=== PATIENT | female | born 1960 | race Caucasian/White ===

== ENCOUNTER → 2017-04-29 08:51 | Outpatient (CLI) | payer MEDICARE, MEDICAID, SELFPAY ==
--- NOTE | 2017-04-29 15:16 | RAD_ITS ---
STUDY: X-RAY - ABDOMEN/PELVIS REASON FOR EXAM: Female, 56 years old. Several day history of constipation and mid abdominal pain. TECHNIQUE: AP supine and upright views of the abdomen and pelvis. COMPARISON: None. FINDINGS: Normal visualized lung bases. There is a moderate amount of colonic fecal material. There is no demonstrated free abdominal air. The visualized liver, spleen and kidneys are grossly normal in size and morphology. Normal soft tissue structures. There are diffuse degenerative changes of the visualized lumbar spine. Marked degree of osteoarthritis involving the right hip joint. RAD/Abd Inc Decub and/or Erect IMPRESSION: Moderate amount of fecal material is seen in the colon. Electronically Signed: Khurram Recio MD at 15:40 EDT Tel [phone], Service support ,
[2017-04-29 17:52] LABS: Absolute Lymphocyte Count 3.09 X10^3/ul (0.83-4.51); Absolute Neutrophil Count 4.9 X10^3/uL (2.0-7.7); Basophil# 0.02 X10^3/uL; Basophil% 0.2 % (0-1); Eosinophil# 0.17 X10^3/uL; Eosinophils% 1.9 % (0-5); Hematocrit 39.9 % (37-47); Hemoglobin 12.8 g/dl (12.0-15.0); Lymphocyte # 3.09 X10^3/ul (4.0); Lymphocyte % 34.7 % (19-41); Mean Corp Hgb Conc 32.1 g/gl (32-36); Mean Corpuscular Hgb 28.8 pg (27.0-32.0); Mean Corpuscular Volume 89.7 fL (81-99); Mean Platelet Vol. 9.1 fl (6.2-12.0); Monocyte# 0.72 X10^3/uL; Monocyte% 8.1 % (0-10); Neutrophil # 4.88 X10^3/uL (2.7-7.7); Neutrophil % 54.9 % (47-70); Platelet Count 282 K/mm3 (150-450); RBC Distribution Width CV 13.8 % (11.6-14.6); RBC Distribution Width SD 45.1 fl (35.1-43.9); Red Blood Count 4.45 M/mm3 (4.2-5.4); White Blood Count 8.9 K/mm3 (4.4-11.0)
[2017-04-29 17:56] LABS: POSITIVE COUNT NO; POSITIVE DIFFERENTIAL NO; POSITIVE MORPHOLOGY NO
[2017-04-29 18:15] LABS: Vitamin D,25 Hydroxy 13.3 ng/mL (29.95-100.01)
[2017-04-29 19:07] LABS: ALB/GLOB Ratio 1.1 RATIO (0.9-2.4); AST(SGOT) 18 U/L (15-37); Alanine Aminotransfer ALT/SGPT 36 U/L (13-56); Albumin, Serum 3.7 g/dL (3.2-5.0); Alkaline Phosphatase 112 U/L (45-117); Anion Gap 11 (5-15); BUN 20 mg/dL (7-18); Calcium,Total 8.6 mg/dL (8.5-10.1); Chloride 100 mmol/L (98-107); Creatinine, Serum 0.95 mg/dL (0.55-1.02); EST Glomerular Filtration Rate 64 mL/min (>60); Est Glom Filt Rate - Afr Amer 77 mL/min (>60); Globulin 3.5 g/dL (2.2-4.2); Glucose 228 mg/dL (74-106); Protein, Total 7.2 g/dL (6.4-8.2); Sodium Level 138 mmol/L (136-145)
== END ==
PROVIDERS: Family Provider Family Medicine Geriatric Medicine; PCP Family Medicine Geriatric Medicine; Visit Provider Family Medicine Geriatric Medicine
DX: E55.9 Vitamin D deficiency, unspecified (principal); I10 Essential (primary) hypertension; K59.00 Constipation, unspecified
CPT/HCPCS: 36415; 74019; 80053; 82306; 84443; 85025

== ENCOUNTER 2017-07-22 11:30 | Inpatient (IN) | payer MEDICARE, MEDICAID, SELFPAY ==
--- NOTE | 2017-07-22 11:46 | EKG12_ITS ---
Test Reason : SOB Blood Pressure : / mmHG Vent. Rate : 077 BPM Atrial Rate : 077 BPM P-R Int : 088 ms QRS Dur : 140 ms QT Int : 406 ms P-R-T Axes : 049 -73 036 degrees QTc Int : 459 ms Atrial-sensed ventricular-paced rhythm Biventricular pacemaker detected Abnormal ECG When compared with ECG of 26-APR-2014 05:16, Electronic ventricular pacemaker has replaced Sinus rhythm Confirmed by DOMINIK SPENCER, HANG ([id number]), editorial project manager DAVID PUTNAM ([id number]) on 08/06/2017 10:53:16 AM Referred By: ISHAAN Confirmed By:HANG LEHMAN MD
--- NOTE | 2017-07-22 13:04 | RAD_ITS ---
STUDY: X-RAY CHEST REASON FOR EXAM: Female, 57 years old. Shortness of breath TECHNIQUE: PA and lateral views of the chest. COMPARISON: 04/25/2014 FINDINGS: Cardiac monitoring leads overlie the chest. The cardiac pacemaker is in place. There is hyperinflation of the lungs consistent with chronic obstructive lung disease (COPD). There is no demonstrated pleural abnormality. Normal size heart. Normal mediastinum and lisa. Normal visualized pulmonary arteries. There is mild calcification of the aortic arch. Normal visualized thoracic spine. Normal visualized ribs, clavicles, and shoulders. There is no demonstrated abnormality of the visualized soft tissue structures of the upper abdomen. RAD/Chest PA and Lateral IMPRESSION: COPD. No focal consolidation. Electronically Signed: Meng Mayo DO at 9:25 EDT Tel , Service support ,
--- NOTE | 2017-07-22 17:33 | DT_ITS ---
This patient was seen during an EMR downtime July 20, 2017 - July 27, 2017. This patient may have a combination of paper and electronic documentation or all paper documentation. All documentation is viewable within the e-chart portion of [employer] for each patient visit.
[2017-07-25 06:48] LABS: Magnesium 2.2 mg/dL (1.6-2.6)
[2017-07-25 06:49] LABS: Digoxin Level 0.74 ng/mL (0.80-2.00)
[2017-07-25 09:51] LABS: Hematocrit 41.4 % (37-47); Hemoglobin 12.6 g/dl (12.0-15.0); Mean Corp Hgb Conc 30.4 g/gl (32-36); Mean Corpuscular Hgb 28.1 pg (27.0-32.0); Mean Corpuscular Volume 92.2 fL (81-99); Red Blood Count 4.49 M/mm3 (4.2-5.4); White Blood Count 6.8 K/mm3 (4.4-11.0)
[2017-07-25 09:52] LABS: Absolute Lymphocyte Count 1.67 X10^3/ul (0.83-4.51); Absolute Neutrophil Count 4.6 X10^3/uL (2.0-7.7); Basophil# 0.01 X10^3/uL; Basophil% 0.1 % (0-1); Eosinophil# 0.08 X10^3/uL; Eosinophils% 1.2 % (0-5); Lymphocyte # 1.67 X10^3/ul (4.0); Lymphocyte % 24.6 % (19-41); Mean Platelet Vol. 8.3 fl (6.2-12.0); Monocyte% 5.9 % (0-10); Neutrophil # 4.61 X10^3/uL (2.7-7.7); Neutrophil % 68.1 % (47-70); POSITIVE COUNT NO; POSITIVE DIFFERENTIAL NO; POSITIVE MORPHOLOGY NO; Platelet Count 242 K/mm3 (150-450); RBC Distribution Width CV 13.2 % (11.6-14.6); RBC Distribution Width SD 43.1 fl (35.1-43.9)
[2017-07-25 10:08] LABS: BNP,B-Type NATRIURETIC PEPTIDE 15.3 pg/mL (0-100)
[2017-07-25 10:13] LABS: Anion Gap 7 (5-15); BUN 16 mg/dL (7-18); BUN/Creat Ratio 24.6 RATIO (10-20); Calcium,Total 8.5 mg/dL (8.5-10.1); Chloride 103 mmol/L (98-107); Creatinine, Serum 0.65 mg/dL (0.55-1.02); EST Glomerular Filtration Rate 99 mL/min (>60); Est Glom Filt Rate - Afr Amer 120 mL/min (>60); Glucose 156 mg/dL (74-106); Potassium 4.2 mmol/L (3.5-5.1); Sodium Level 143 mmol/L (136-145)
[2017-07-25 11:13] LABS: Bacteria 0 SEEN /hpf (None Seen); Mucous, Urine 0 SEEN /hpf (<or=2+); Red Blood Cells-Urine 0 SEEN /hpf (0-5); White Blood Cells 0 SEEN /hpf (0-5)
[2017-07-25 11:19] LABS: Color, Urine Yellow (Yellow); Glucose, Dipstick 1000 mg/dl (Normal); Ketone-Dipstick 5 mg/dl (Negative); Urine Bilirubin Dipstick Negative (Negative); Urine Clarity Clear (Clear)
[2017-07-25 11:20] LABS: Leukocyte Esterase-Dipstick Negative /ul (Negative); Nitrite-Dipstick Negative (Negative); Occult Blood-Urine 10 /ul (Negative); Protein-Dipstick Negative (Negative); Specific Gravity, Urine 1.015 (1.002-1.030); Squamous Epithelial Cells - UA 0-5 SEEN /hpf (5-10); Urine Urobilinogen Normal (Normal)
[2017-07-25 12:50] LABS: Hemoglobin A1c 7.8 % (4.2-6.3)
[2017-07-25 13:31] LABS: Anion Gap 9 (5-15); BUN 19 mg/dL (7-18); BUN/Creat Ratio 30.6 RATIO (10-20); Chloride 102 mmol/L (98-107); Cholesterol 116 mg/dL (200); Creatinine, Serum 0.62 mg/dL (0.55-1.02); EST Glomerular Filtration Rate 105 mL/min (>60); Est Glom Filt Rate - Afr Amer 127 mL/min (>60); Glucose 210 mg/dL (74-106); High Density Lipoprotein 35 mg/dL; Potassium 4.5 mmol/L (3.5-5.1); Sodium Level 140 mmol/L (136-145); Thyroid Stim Hormone (TSH) 0.31 uIU/mL (0.358-3.74); Triglycerides 91 mg/dL; Very Low Density Lipoprotein 18 mg/dL (5-40)
[2017-07-28 09:52] LABS: Anion Gap 8 (5-15); BUN 32 mg/dL (7-18); Chloride 97 mmol/L (98-107); Creatinine, Serum 0.78 mg/dL (0.55-1.02); EST Glomerular Filtration Rate 80 mL/min (>60); Est Glom Filt Rate - Afr Amer 97 mL/min (>60); Glucose 254 mg/dL (74-106); Magnesium 2.6 mg/dL (1.6-2.6); Potassium 4.5 mmol/L (3.5-5.1); Sodium Level 140 mmol/L (136-145)
[2017-07-28 10:54] LABS: Bedside Glucose 279 mg/dL (70-110)
[2017-07-28 10:55] LABS: Bedside Glucose 201 mg/dL (70-110)
[2017-07-28 10:57] LABS: Bedside Glucose 303 mg/dL (70-110)
[2017-07-28 10:58] LABS: Bedside Glucose 315 mg/dL (70-110)
[2017-07-28 21:32] LABS: Hematocrit 38.9 % (37-47); Hemoglobin 12.3 g/dl (12.0-15.0); Mean Corp Hgb Conc 31.6 g/gl (32-36); Mean Corpuscular Hgb 28.3 pg (27.0-32.0); Mean Corpuscular Volume 89.6 fL (81-99); Mean Platelet Vol. 8.9 fl (6.2-12.0); Platelet Count 269 K/mm3 (150-450); RBC Distribution Width SD 41.9 fl (35.1-43.9); Red Blood Count 4.34 M/mm3 (4.2-5.4); Scan Indicated on CBC? Y/N NO; White Blood Count 11.4 K/mm3 (4.4-11.0)
[2017-07-31 11:04] LABS: Bedside Glucose 379 mg/dL (70-110)
[2017-07-31 11:05] LABS: Bedside Glucose 241 mg/dL (70-110)
[2017-07-31 11:07] LABS: Bedside Glucose 269 mg/dL (70-110)
[2017-07-31 11:09] LABS: Bedside Glucose 321 mg/dL (70-110)
[2017-07-31 12:08] LABS: Bedside Glucose 393 mg/dL (70-110)
[2017-07-31 12:09] LABS: Bedside Glucose 258 mg/dL (70-110)
[2017-07-31 12:10] LABS: Bedside Glucose 252 mg/dL (70-110)
== END 2017-07-25 13:18 | disposition home or self-care (01) | DRG 191 ==
LOC: ED 17:32 → MS3 07-23 08:18
PROVIDERS: Internal Medicine; Admitting Provider Internal Medicine; Emergency Provider Emergency Medicine; Family Provider Family Medicine Geriatric Medicine; PCP Family Medicine Geriatric Medicine; Visit Provider Internal Medicine
DX: J44.1 Chronic obstructive pulmonary disease with (acute) exacerbation (principal); I50.22 Chronic systolic (congestive) heart failure; J96.11 Chronic respiratory failure with hypoxia; I11.0 Hypertensive heart disease with heart failure; E78.5 Hyperlipidemia, unspecified; M19.90 Unspecified osteoarthritis, unspecified site; Z99.81 Dependence on supplemental oxygen; N39.41 Urge incontinence; Z95.810 Presence of automatic (implantable) cardiac defibrillator; Z87.891 Personal history of nicotine dependence; E03.9 Hypothyroidism, unspecified
CPT/HCPCS: 36415; 71046; 80048; 80061; 80162; 81001; 82962; 83036; 83735; 83880; 84443; 84484; 85025; 85027; 87077; 87086; 87088; 87186; 93005; 94640; 94667; 94668; 97802; 99284; A4216

== ENCOUNTER → 2017-12-03 15:09 | Outpatient (CLI) | payer MEDICARE, MEDICAID, SELFPAY ==
[2017-12-03 17:15] LABS: Absolute Lymphocyte Count 2.04 X10^3/ul (0.83-4.51); Absolute Neutrophil Count 5.4 X10^3/uL (2.0-7.7); Basophil# 0.02 X10^3/uL; Basophil% 0.2 % (0-1); Eosinophils% 1.2 % (0-5); Hematocrit 41.5 % (37-47); Hemoglobin 12.7 g/dl (12.0-15.0); Lymphocyte # 2.04 X10^3/ul (4.0); Lymphocyte % 24.8 % (19-41); Mean Corp Hgb Conc 30.6 g/gl (32-36); Mean Corpuscular Hgb 28.2 pg (27.0-32.0); Mean Platelet Vol. 9.2 fl (6.2-12.0); Monocyte# 0.61 X10^3/uL; Monocyte% 7.4 % (0-10); Neutrophil # 5.43 X10^3/uL (2.7-7.7); Neutrophil % 66.2 % (47-70); Platelet Count 247 K/mm3 (150-450); RBC Distribution Width CV 13.3 % (11.6-14.6); RBC Distribution Width SD 43.6 fl (35.1-43.9); Red Blood Count 4.51 M/mm3 (4.2-5.4); White Blood Count 8.2 K/mm3 (4.4-11.0)
[2017-12-03 17:42] LABS: POSITIVE COUNT NO; POSITIVE DIFFERENTIAL NO; POSITIVE MORPHOLOGY NO
[2017-12-03 17:47] LABS: BUN 15 mg/dL (7-18); Creatinine, Serum 0.68 mg/dL (0.55-1.02); Glucose 154 mg/dL (74-106)
[2017-12-03 17:48] LABS: ALB/GLOB Ratio 0.9 RATIO (0.9-2.4); AST(SGOT) 14 U/L (15-37); Alanine Aminotransfer ALT/SGPT 25 U/L (13-56); Albumin, Serum 3.2 g/dL (3.2-5.0); Alkaline Phosphatase 119 U/L (45-117); Anion Gap 5 (5-15); BUN/Creat Ratio 22.2 RATIO (10-20); Calcium,Total 8.9 mg/dL (8.5-10.1); Chloride 97 mmol/L (98-107); EST Glomerular Filtration Rate 95 mL/min (>60); Est Glom Filt Rate - Afr Amer 115 mL/min (>60); Globulin 3.4 g/dL (2.2-4.2); Potassium 4.4 mmol/L (3.5-5.1); Protein, Total 6.6 g/dL (6.4-8.2); Sodium Level 139 mmol/L (136-145); Thyroid Stim Hormone (TSH) 0.83 uIU/mL (0.358-3.74)
[2017-12-05 13:09] LABS: Hep C Antibodies <0.1 s/co ratio (0.0-0.9)
[2017-12-08 09:54] LABS: Hemoglobin A1c 7.1 % (4.2-6.3)
== END ==
PROVIDERS: Family Provider Family Medicine Geriatric Medicine; PCP Family Medicine Geriatric Medicine; Visit Provider Family Medicine Geriatric Medicine
DX: I10 Essential (primary) hypertension (principal); Z13.89 Encounter for screening for other disorder
CPT/HCPCS: 36415; 80053; 83036; 84443; 85025; 86803

== ENCOUNTER 2017-12-10 17:32 | Inpatient (IN) | payer MEDICARE, SELFPAY ==
[2017-12-10] VITALS (8 sets, daily range): BP systolic 93–124; BP diastolic 64–76; PULSE 91–106; RESP 16–24; TEMP 36.7–37.1; O2SAT 84–94; BMI 35.2; BMI 33.8; BMI 33.9
--- NOTE | 2017-12-10 18:02 | EKG12_ITS ---
Test Reason : Blood Pressure : / mmHG Vent. Rate : 098 BPM Atrial Rate : 098 BPM P-R Int : 000 ms QRS Dur : 124 ms QT Int : 366 ms P-R-T Axes : -23 -76 048 degrees QTc Int : 467 ms Ventricular-paced rhythm Biventricular pacemaker detected Abnormal ECG Confirmed by HEIDI MORENO ([id number]), editorial cartoonist DAVID PUTNAM ([id number]) on 12/15/2017 8:45:59 AM Referred By: LOLY Confirmed By:HEIDI MORENO
[2017-12-10] MEDS: Albuterol 2.5 MG/3 ML VIAL.NEB. INHALATION (18:11)
[2017-12-10] MEDS: Ipratropium/Albuterol Sulfate 3 ML AMPUL.NEB INHALATION ×2 (18:12→23:50)
--- NOTE | 2017-12-10 18:20 | RAD_ITS ---
STUDY: X-RAY CHEST REASON FOR EXAM: Female, 57 years old. Shortness of breath TECHNIQUE: PA and lateral views of the chest. COMPARISON: Previous study of 07/22/2017 FINDINGS: There is a left-sided pacemaker. cardiac monitor leads are present. The lungs are clear and expanded. There is hemidiaphragmatic flattening which may be associated with COPD. There are small bilateral pleural effusions. Normal size heart. Normal mediastinum and lisa. Normal visualized pulmonary arteries. There are calcified plaques of the aortic arch. There are diffuse degenerative changes of the visualized thoracic spine. Normal visualized ribs, clavicles, and shoulders. There is no demonstrated abnormality of the visualized soft tissue structures of the upper abdomen. RAD/Chest PA and Lateral IMPRESSION: Small bilateral effusions. Hemidiaphragmatic flattening which may be associated with COPD. Degenerative changes of the thoracic spine. Findings are similar to the previous study. Electronically Signed: Mango Keene MD at 18:36 EDT , Service support ,
[2017-12-10 18:41] LABS: Absolute Lymphocyte Count 1.63 X10^3/ul (0.83-4.51); Basophil# 0.02 X10^3/uL; Basophil% 0.2 % (0-1); Eosinophil# 0.04 X10^3/uL; Eosinophils% 0.4 % (0-5); Hematocrit 40.4 % (37-47); Hemoglobin 11.8 g/dl (12.0-15.0); Lymphocyte # 1.63 X10^3/ul (4.0); Lymphocyte % 17.3 % (19-41); Mean Corp Hgb Conc 29.2 g/gl (32-36); Mean Corpuscular Hgb 26.8 pg (27.0-32.0); Mean Corpuscular Volume 91.8 fL (81-99); Mean Platelet Vol. 8.6 fl (6.2-12.0); Monocyte# 0.69 X10^3/uL; Monocyte% 7.3 % (0-10); Neutrophil % 74.6 % (47-70); Platelet Count 329 K/mm3 (150-450); RBC Distribution Width CV 12.8 % (11.6-14.6); White Blood Count 9.4 K/mm3 (4.4-11.0)
[2017-12-10 18:44] LABS: POSITIVE COUNT NO; POSITIVE DIFFERENTIAL NO; POSITIVE MORPHOLOGY NO
[2017-12-10 18:51] LABS: Anion Gap 4 (5-15); BUN 10 mg/dL (7-18); BUN/Creat Ratio 22.7 RATIO (10-20); Chloride 93 mmol/L (98-107); Creatinine, Serum 0.44 mg/dL (0.55-1.02); EST Glomerular Filtration Rate 155 mL/min (>60); Est Glom Filt Rate - Afr Amer 188 mL/min (>60); Estimated Creatinine Clearance 98.88 ml/min; Glucose 113 mg/dL (74-106); Potassium 4.1 mmol/L (3.5-5.1); Sodium Level 136 mmol/L (136-145)
[2017-12-10 19:12] LABS: BNP,B-Type NATRIURETIC PEPTIDE 34.9 pg/mL (0-100)
--- NOTE | 2017-12-10 19:59 | HP.PCM_ITS ---
Problem List (1) COPD exacerbation Status: Acute (2) Obesity (BMI 30.0-34.9) Status: Chronic (3) Hyperlipidemia Status: Chronic Qualifiers: Hyperlipidemia type: unspecified Qualified Code(s): E78.5 - Hyperlipidemia, unspecified (4) Cardiomyopathy, dilated Status: Chronic (5) Hypertension Status: Chronic Qualifiers: Hypertension type: essential hypertension Qualified Code(s): I10 - Essential (primary) hypertension (6) Nonrheumatic mitral valve regurgitation Status: Chronic (7) Chronic systolic congestive heart failure Status: Chronic (8) Biventricular automatic implantable cardioverter defibrillator in situ Status: Chronic (9) Atherosclerotic heart disease of [place] coronary artery without angina pectoris Status: Chronic Qualifiers: [place] vs. transplanted heart: unspecified whether prairie band or transplanted heart Qualified Code(s): I25.10 - Atherosclerotic heart disease of pra[place] coronary artery without angina pectoris (10) Ventricular tachycardia Status: Chronic History of Present Illness Date of Admission: 12/10/17 Chief Complaint: Cough, congestion, dyspnea The patient is a 57 y/o F w/ PMHx: Chronic Systolic CHF s/p ACID/pacemaker placement, Dilated Cardiomyopathy, Depression and Anxiety, HTN, HLD, Obesity, Chronic Hypoxic Respiratory Failure w/ COPD (2.5L NC), Former Tobacco use who presents to the [facility] ED on 12/10/17 with history of progressively worsening dyspnea, cough although not to bring material up, chest congestion, mild rhinorrhea with decreased oxygen saturation on her home chronic supplementation (83% on her 2.5L NC) without improvement with home regimen and conservative care prompting presentation to the ED. She denies any fevers or chills. She does have several grandchildren and she has had ill contacts. The ED workup included T 98.1, heart rate 106, BP 107/64, respiratory rate 24, 84% on room air with improvement to 92% on 4 L nasal cannula, CBC with WC 9.4, hemoglobin 11.8, platelet 329 without market shift, BMP with chloride 93, carbon dioxide 39, BUN/creatinine 10/0.44, glucose 113, BNP 34.9, troponin < 0.015, EKG without evidence of acute ischemia, chest x-ray with small bilateral pleural effusions, chronic COPD changes, degenerative changes of the thoracic spine. The ED patient administered Solu-Medrol, DuoNeb as well as albuterol. Past Medical History Past Medical History (Chronic Problems): Chronic Problems (Last Updated 06/30/17 @ 17:00 by Renetta Almodovar) Obesity (BMI 30.0-34.9) (Chronic) RBBB (right bundle branch block) (Chronic) Hyperlipidemia (Chronic) Cardiomyopathy, dilated (Chronic) Hypertension (Chronic) Nonrheumatic mitral valve regurgitation (Chronic) Chronic systolic congestive heart failure (Chronic) Biventricular automatic implantable cardioverter defibrillator in situ (Chronic ~01/05/15) Atherosclerotic heart disease of [place] coronary artery without angina pectoris (Chronic) Ventricular tachycardia (Chronic) Medical History: Medical History (Last Updated 06/30/17 @ 17:00 by Renetta Almodovar) Cardiac tamponade (Acute) I31.4 RBBB (right bundle branch block) (Chronic) I45.10 Hyperlipidemia (Chronic) E78.5 Cardiomyopathy, dilated (Chronic) I42.0 Hypertension (Chronic) I10 Nonrheumatic mitral valve regurgitation (Chronic) I34.0 Chronic systolic congestive heart failure (Chronic) I50.22 Biventricular automatic implantable cardioverter defibrillator in situ (Chronic) Onset Date: ~01/05/15 Z95.810 Atherosclerotic heart disease of [place] coronary artery without angina pectoris (Chronic) I25.10 Ventricular tachycardia (Chronic) I47.2 Anxiety F41.9 COPD (chronic obstructive pulmonary disease) J44.9 Depression F32.9 Allergies acetaminophen [From Vicodin] Allergy (Verified 12/10/17 17:37) Hives hydrocodone bitartrate [From Vicodin] Allergy (Verified 12/10/17 17:37) Hives Penicillins Allergy (Verified 12/10/17 17:37) Anaphylaxis Home Medications: Ambulatory Orders Medication Instructions Recorded Digoxin [Lanoxin] 250 mcg PO DAILY #30 tab 04/29/14 Furosemide [Lasix] 20 mg PO DAILY #30 tab 04/29/14 Losartan Potassium [Cozaar] 50 mg PO DAILY 04/16/15 Oxygen, Home [Home Oxygen] 2 lpm NASAL DAILY PRN 04/16/15 Spironolactone [Aldactone] 25 mg PO DAILY 04/16/15 albuterol sulfate HFA 90 2 puff INHALATION Q4H PRN 06/30/17 mcg/actuation aerosol inhaler atorvastatin 40 mg tablet 40 mg PO QDAY 06/30/17 carvedilol 12.5 mg tablet 12.5 mg PO BID 06/30/17 fluticasone 250 mcg-salmeterol 50 1 inh INHALATION Q12H 06/30/17 mcg/dose blistr powdr for inhalation sertraline 100 mg tablet 100 mg PO QDAY 06/30/17 Albuterol Aerosols [Ventolin 2.5 mg INHALATION Q4HWA.RT 12/10/17 Aerosols] Budesonide/Formoterol 160/4.5 2 puff INHALATION BID 12/10/17 [Symbicort 160/4.5 Mcg Inhaler (SP)] Diclofenac [Voltaren] 50 mg PO BIDCM 12/10/17 Levothyroxine [Synthroid] 25 mcg PO DAILY 12/10/17 Paroxetine HCl [Paxil] 40 mg PO DAILY 12/10/17 Tamsulosin HCl [Flomax] 0.4 mg PO QHS 12/10/17 Surgical History: Surgical History (Last Updated 06/30/17 @ 17:00 by Renetta Almodovar) History of tubal ligation Z98.51 Status post pericardiocentesis Z98.890 Surgical History: - - x 2, hysterectomy, AICD/pacemaker placement. Psychiatric History: Anxiety, Depression SKIP MINER BLASTING History: No pertinent SKIP MINER BLASTING history Lives: Alone Smoking Status: Former smoker - Quit 2014, smoked 1-1.5 ppd prior to this, cigarette tobacco. Tobacco Use: Non-smoker Alcohol: None Drugs: None - *Family History Maternal Family History: Family History (Last Updated 06/30/17 @ 17:01 by Renetta Almodovar) Father CAD (coronary artery disease) Hypertension Mother CAD (coronary artery disease) Hypertension Diabetes Brother CAD (coronary artery disease) History Items: Diabetes, Heart Disease, Hypertension Paternal Family History: Family History (Last Updated 06/30/17 @ 17:01 by Renetta Almodovar) Father CAD (coronary artery disease) Hypertension Mother CAD (coronary artery disease) Hypertension Diabetes Brother CAD (coronary artery disease) History Items: Heart Disease, Hypertension Review of Systems Constitutional: Reports: Malaise, Weakness, Fatigue. Denies: Chills, Fever, Weight Change HEENT: Denies: Head Aches, Sinus Congestion, Sinus Drainage Cardiovascular: Denies: Chest Pain, Palpitations Respiratory: Reports: Cough, Shortness of Breath, Shortness of breath at rest, Shortness of breath upon exertion, Sputum production - Sputum but unable to bring up. Gastrointestinal: Denies: Abdominal Pain, Nausea, Vomiting Genitourinary: Denies: Dysuria Musculoskeletal: Denies: Joint Pain, Joint Tenderness Skin: Denies: Rash, Wounds Neurological: Denies: Numbness, Tingling, Focal weakness Psychiatric: Reports: Anxiety, Depression. Denies: Homicidal Ideations, Suicidal Ideations Hematologic/ Lymphatic: Denies: Easy Bruising, Easy Bleeding VTE Information - Inpt Only VTE Present on Admission: No VTE Mechan Device Prophylaxis: SCD's VTE Pharm Prophylaxis ordered?: Yes Patient Problems: Active and Suspected Problems (Last Updated 06/30/17 @ 17:00 by Renetta Almodovar) COPD exacerbation (Acute) Subjective: Seated upright in the ED, harsh coarse wet sounding cough during examination, ill-appearing, fatigued. Objective: Physical Examination: General: awake, alert, oriented x 3 and cooperative, seated upright in the ED bed, fatigued, ill-appearing. Skin: normal color, turgor, no icterus, cyanosis. HEENT: AT/NC, EOMI, PERRLA, only dry MM, no carotid bruits or JVD noted; however difficult examination given thickened neck. Lungs: Diffusely diminished breath sounds bilaterally, mild effort, coarse wet cough but unable to bring up sputum, no rales, ronchi or wheezing. Heart: Mildly tachycardic with regular rhythm; no gallop, rub audible. Abdomen: soft, obese, NTTP, ND, normal BS, no HSM; however her habitus makes examination difficult. Extremities: no cyanosis, clubbing, or edema. Neurological: patient awake, alert, oriented x 3; cognitive function intact; pupils equally reactive to light and accomodation; cranial nerves II-XII grossly normal, moving all 4 extremities, no focal deficits, strength severely globally decreased secondary to acute presentation. Psychiatric: affect appears fatigued, no acute evidence of depressive or anxiety feelings. - Physical Exam Vital Signs Temp Pulse Resp BP Pulse Ox 98.1 F 96 20 H 107/64 92 12/10/17 17:33 12/10/17 18:12 12/10/17 18:12 12/10/17 17:33 12/10/17 17:33 Oxygen Flow Rate (L/min) 4 Oxygen Delivery Method Nasal Cannula Weight: 180 lb 5.41 oz Body Mass Index (BMI) 35.2 Laboratory Tests Past 24 Hrs 12/10/17 12/10/17 12/10/17 17:52 17:52 17:52 WBC 9.4 RBC 4.40 Hgb 11.8 L Hct 40.4 MCV 91.8 MCH 26.8 L MCHC 29.2 L RDW 12.8 RDW Differential 43.0 Plt Count 329 MPV 8.6 Immature Gran % (Auto) 0.200 Neut % (Auto) 74.6 H Lymph % (Auto) 17.[address] [place] % (Auto) 7.3 Eos % (Auto) 0.4 Baso % (Auto) 0.2 Absolute Neuts (auto) 7.0 Absolute Lymphs (auto) 1.63 Total Counted Not Reportable Sodium 136 Potassium 4.1 Chloride 93 L Carbon Dioxide 39.0 H Anion Gap 4 L BUN 10 Creatinine 0.44 L Estim Creat Clear Calc 98.88 Est GFR (MDRD) Af Amer 188 Est GFR (MDRD) Non-Af 155 BUN/Creatinine Ratio 22.7 H Glucose 113 H Calcium 9.0 Troponin I < 0.015 B-Natriuretic Peptide 34.9 Assessment/Plan All Active Problems (Last Updated 06/30/17 @ 17:00 by Renetta Almodovar) COPD exacerbation (Acute) Cardiac tamponade (Acute) The patient is a 57 y/o F w/ PMHx: Chronic Systolic CHF s/p ACID/pacemaker placement, Dilated Cardiomyopathy, Depression and Anxiety, HTN, HLD, Obesity, Chronic Hypoxic Respiratory Failure w/ COPD (2.5L NC), Former Tobacco use who presents to the [facility] ED on 12/10/17 with history of progressively worsening dyspnea, cough although not to bring material up, chest congestion, mild rhinorrhea with decreased oxygen saturation on her home chronic supplementation (83% on her 2.5L NC) without improvement with home regimen and conservative care prompting presentation to the ED. (1) Acute on chronic COPD exacerbation w/ Hypoxia on Chronic Respiratory Failure: CXR w/ chronic changes, CBC on admission w/ no marked WBC elevation or L shift. Will admit to MS, maintain on oxygen with wean as tolerated to home oxygen supplementation, continue ATC duonebs, PRN albuterol, IV methylprednisolone, HOB, IS parameters, obtain respiratory viral panel and sputum cultures, Chest PT. Mucinex. (2) Chronic Systolic CHF, Dilated Cardiomyopathy: s/p AICD/pacemaker placement. Following w/ Dr. Yeboah. Maintain on home regimen asa, spironolactone, losartan, Lasix, digoxin, Coreg, statin. (3) Hypertension: Continue home regimen including Loly lactone, losartan, Lasix, Coreg, PRN hydralazine. (4) Hyperlipidemia: Continue home statin regimen. (5) Obesity: Weight loss and lifestyle changes encouraged. (6) Former Tobacco use: Encourage continued cessation. (7) Obesity: Weight loss and lifestyle changes encouraged. (8) Anxiety and Depression: Maintain on home regimen sertraline. (9) DVT Prophylaxis: norberto Mcclendon, Code Visit Inpatient E&M: [id number] Init Hosp L3
--- NOTE | 2017-12-10 20:07 | ED.VISSUMM ---
- ER Visit Summary Date of Service: 12/10/17 Chief Complaint: Shortness of breath History of Present Illness: The patient is a 57 F who presents with shortness of breath. She has been increasingly short of breath for the past 3 days. She complains of some mild upper respiratory congestion or rhinorrhea. She complains of a nonproductive cough. She feels like her chest is congested but that she cannot bring anything up. She denies any chest pain fevers vomiting or diarrhea. She denies weight gain or increased peripheral edema. She is on home oxygen 2-1/2 L for both COPD and CHF. Physical Examination: Afebrile pulse ox is 92% on 4 L nasal cannula Moist mucous membranes Heart regular rhythm slightly tachycardic Patient has decreased air exchange Abdomen soft Alert Skin warm and dry Test Results: EKG shows a paced rhythm at a rate of 98. Chest x-ray shows small bilateral pleural effusions similar to previous study. Labs are unremarkable with negative troponin and normal BNP. Emergency Department Course and Treatment: Patient was given albuterol and Atrovent aerosols. She was given IV Solu-Medrol. I do believe this is most likely related to her COPD. Given her increased oxygen requirement she was admitted. Treatment Plan: [] Disposition: Admit Impression: COPD exacerbation This note was generated with [employer] dictation software. It may contain incorrect words, spelling, and punctuation that were not noted in review of the chart prior to signing ED Disposition - Plan for ED Patient: Chief Complaint: Shortness of Breath Referrals: Carlos Ross Chi, MD [Primary Care Provider] -
[2017-12-10] MEDS: MethylPREDNISolone 125 MG/2 ML Vial IV (20:08)
[2017-12-10] MEDS: Atorvastatin Calcium 40 MG Tablet PO (22:50)
[2017-12-10] MEDS: guaiFENesin 1,200 MG Tablet 1200 MG PO (22:51)
[2017-12-10] MEDS: Carvedilol 12.5 MG Tablet PO (22:51)
[2017-12-10] MEDS: 0.9% NaCl Peripheral Flush Adult/Peds IV (22:52)
[2017-12-11] VITALS (12 sets, daily range): BP systolic 123–155; BP diastolic 64–86; PULSE 87–100; RESP 16–20; TEMP 36.9–37.4; O2SAT 88–94
[2017-12-11] MEDS: Ipratropium/Albuterol Sulfate 3 ML AMPUL.NEB INHALATION ×6 (03:10→22:39)
[2017-12-11] MEDS: 0.9% NaCl Peripheral Flush Adult/Peds IV ×3 (06:27→22:54)
[2017-12-11 07:12] LABS: Anion Gap 5 (5-15); BUN 11 mg/dL (7-18); BUN/Creat Ratio 23.4 RATIO (10-20); Calcium,Total 8.6 mg/dL (8.5-10.1); Chloride 98 mmol/L (98-107); Creatinine, Serum 0.47 mg/dL (0.55-1.02); EST Glomerular Filtration Rate 144 mL/min (>60); Est Glom Filt Rate - Afr Amer 174 mL/min (>60); Estimated Creatinine Clearance 92.57 ml/min; Glucose 253 mg/dL (74-106); Potassium 4.7 mmol/L (3.5-5.1); Sodium Level 133 mmol/L (136-145)
[2017-12-11 07:55] LABS: Hemoglobin 11.8 g/dl (12.0-15.0); Mean Corp Hgb Conc 30.3 g/gl (32-36); Mean Corpuscular Hgb 27.5 pg (27.0-32.0); Mean Corpuscular Volume 90.9 fL (81-99); RBC Distribution Width CV 12.5 % (11.6-14.6); Red Blood Count 4.29 M/mm3 (4.2-5.4); White Blood Count 8.4 K/mm3 (4.4-11.0)
[2017-12-11 07:56] LABS: Absolute Lymphocyte Count 0.77 X10^3/ul (0.83-4.51); Absolute Neutrophil Count 7.5 X10^3/uL (2.0-7.7); Basophil# 0.01 X10^3/uL; Basophil% 0.1 % (0-1); Eosinophil# 0.01 X10^3/uL; Eosinophils% 0.1 % (0-5); Lymphocyte # 0.77 X10^3/ul (4.0); Lymphocyte % 9.2 % (19-41); Mean Platelet Vol. 8.5 fl (6.2-12.0); Monocyte# 0.07 X10^3/uL; Monocyte% 0.8 % (0-10); Neutrophil % 89.6 % (47-70); POSITIVE COUNT NO; POSITIVE DIFFERENTIAL NO; POSITIVE MORPHOLOGY NO; Platelet Count 347 K/mm3 (150-450); RBC Distribution Width SD 41.1 fl (35.1-43.9)
--- NOTE | 2017-12-11 08:42 | CPS ---
Pt. refused PEP therapy this morning, wanted to get rest
--- NOTE | 2017-12-11 08:43 | CPS ---
Pt. refused IS training for morning, wanted to sleep
--- NOTE | 2017-12-11 09:25 | CASEMGMT ---
ASTRID OWEN INITIAL REVIEW ASSESSMENT D/C PLAN: [facility] and PT/OT eval and treat. Face to Face with patient for initial transition planning/care coordination assessment. ASTRID OWEN introduced self and role at [facility]. Care providers, pharmacy, and demographics verified. PCP: Dr Ross. [facility] has been wanting to find a different PCP. Provided pt with list of local PCP's. Preferred Pharmacy: [facility] Insurance: MCR A & B, Medicaid. Prescription Benefit: Medicaid Living Will/HPOA: [facility] does not have either, is interested in further information, and would like to talk to KA[facility]. Given AD info packet and referral made with KAITLIN Sosa LNOK: Daughter and son Living Arrangements: Lives alone. States she just recently moved in to [facility]. States she was at a homeless group home prior that there. Pt states she is able to do own personal ADL's such as bathing and dressing herself. States her daughter and son stop in to check on her almost every day. State they help her with groceries and meals and her daughter helps her with chores. Transportation: Daughter and son. Pt interested in [facility] Van services. Provided contact information for them. DME: Pt staes she has tub bench/shower chair, cane, rails/grab bars, walker, and nebulizer. States she wears O2 @ 2L/M via N/C that she gets through [facility]. States she has a concentrator and D-tank but states the D-tank is difficult to take around and would like something smaller. Call placed to [facility]. They confirmed current orders are for O2 @ 2L/M and were made aware pt would like mini tanks. Pt will need home O2 qualifications testing done prior to d/c and order for O2 and conserver faxed to [facility] on D/C. Green sheet on chart. Pt states would like to get a wheelchair. Script obtained and faxed to [employer]. HHC: Pt states she would like [facility] and states no preference of [facility] agency. Referral made with [facility]. VIOLA Jackson, @ [facility] state they are able to accept pt. Pt's plans on D/C: Wishes to return home. Discussed [facility] with pt and she states she is interested in their services. [facility] referral made. Pt states she is on disability. Denies having any further questions or needs. CM to follow for any further discharge planning needs that may arise. Fortunato GAMBINON RN CM
[2017-12-11] MEDS: Sodium Chloride 0.65% 1 SPRAY SPRAY.BTL 2 SPRAY NASAL (09:59)
[2017-12-11] MEDS: Enoxaparin 40 MG/0.4 ML Syringe SC (10:00)
[2017-12-11] MEDS: Carvedilol 12.5 MG Tablet PO ×2 (10:00→22:50)
[2017-12-11] MEDS: Sertraline 100 MG Tablet PO (10:00)
[2017-12-11] MEDS: guaiFENesin 1,200 MG Tablet 1200 MG PO ×2 (10:00→22:50)
[2017-12-11] MEDS: buPROPion (XL) 300 MG TABLET.XL PO (10:00)
[2017-12-11] MEDS: Losartan Potassium 50 MG Tablet PO (10:01)
[2017-12-11] MEDS: Furosemide 20 MG Tablet PO (10:01)
[2017-12-11] MEDS: Digoxin 250 MCG Tablet PO (10:01)
[2017-12-11] MEDS: Aspirin E.C. 81 MG Tablet PO (10:01)
[2017-12-11] MEDS: Spironolactone 25 MG Tablet PO (10:01)
[2017-12-11] MEDS: Oxymetazoline 0.05% 1 SPRAY SPRAY.BTL 2 SPRAY NASAL ×2 (10:02→22:49)
[2017-12-11] MEDS: Glucerna Shake 120 ML LIQUID PO ×2 (10:06→13:44)
--- NOTE | 2017-12-11 12:13 | CASEMGMT ---
Social Work Note SW received referral for Advanced Directives. SW met with pt to discuss advanced directives. SW explained advanced directives (HCPOA and Living Will). Pt states that she would like to talk to her children before filling out documents. SW informed pt that she can fill out documents here at [facility] or can take documents home to fill out. Pt states understanding. SW provided patients with advanced directives. Alecia Moore MANAGER FIBER, ROBOTIC WELD TECHNICIAN
--- NOTE | 2017-12-11 14:09 | PCM.PN.HOSP ---
Patient Problems: Active and Suspected Problems (Last Updated 06/30/17 @ 17:00 by Renetta Almodovar) COPD exacerbation (Acute) Subjective: Patient is a 57-year-old white female with known history of chronic systolic heart failure status post AICD/pacemaker, dilated cardiomyopathy, depression, anxiety, hypertension, hyperlipidemia, obesity, chronic hypoxic respiratory failure with COPD usually on 2.5 L of nasal cannula, tobacco abuse in the past, who presented to the hospital for this cough congestion and what looks to be acute exacerbation of COPD. States that she feels better than she did last night, but he she is requesting to see her it consulting manager Dr. Wallace as she was scheduled to see him . However patient was in the hospital. Patient denies any nausea vomiting or chest pain currently still has cough no minimal production at this time. Respiratory panel was negative. Vitals/I&O's: Vital Signs Temp Pulse Resp BP Pulse Ox 98.7 F 92 20 H 130/64 H 88 12/11/17 10:29 12/11/17 11:01 12/11/17 11:01 12/11/17 10:29 12/11/17 10:29 Oxygen Flow Rate (L/min) 3 Oxygen Delivery Method Room Air Weight: 78.6 kg Body Mass Index (BMI) 33.8 Intake and Output for Last 24 Hours 12/09/17 12/10/17 12/11/17 23:59 23:59 23:59 Intake Total 500 / 500 500 / 500 Balance 500 / 500 500 / 500 General: Alert, Oriented x3, Cooperative HEENT: Atraumatic, PERRLA, EOMI Oral: Moist Mucosa, No Gingival or Mucosal Lesions/ Ulcerations Neck: Supple, No JVD, Trachea Midline Lungs: No rales, Diminished - Diminished breath sounds bilateral bases prolonged expiratory phase, Rhonchi, Wheezes - Expiratory wheeze Cardiovascular: Normal S1, Normal S2, Murmur - Systolic Abdomen: Soft, Non Tender, Non-Distended Extremities: No clubbing, No cyanosis, Edema Skin: No rashes, No breakdown Musculoskeletal: No Tenderness to Palpation of Joints or Extremities, No Muscle Wasting Lymphatic: No Cervical, Supraclavicular, or Inguinal Adenopathy Neurological: Cranial nerves II-XII grossly intact, Neuro grossly intact Psych/Mental Status: Normal Affect, Appropriate, Alert and oriented to time, place, person, mood and affect Microbiology Past 72 Hours 12/11/17 00:25 Sputum, Expectorated/Coughed Gram Stain - Final 12/10/17 23:25 Mucosa - Nose Respiratory Panel (PCR) - Final Laboratory Results 12/10/17 17:52: WBC 9.4, RBC 4.40, Hgb 11.8 L, Hct 40.4, MCV 91.8, MCH 26.8 L, MCHC 29.2 L, RDW 12.8, RDW Differential 43.0, Plt Count 329, MPV 8.6, Immature Gran % (Auto) 0.200, Neut % (Auto) 74.6 H, Lymph % (Auto) 17.3 L, [place] % (Auto) 7.3, Eos % (Auto) 0.4, Baso % (Auto) 0.2, Absolute Neuts (auto) 7.0, Absolute Lymphs (auto) 1.63, Total Counted Not Reportable 12/10/17 17:52: Sodium 136, Potassium 4.1, Chloride 93 L, Carbon Dioxide 39.0 H, Anion Gap 4 L, BUN 10, Creatinine 0.44 L, Estim Creat Clear Calc 98.88, Est GFR (MDRD) Af Amer 188, Est GFR (MDRD) Non-Af 155, BUN/Creatinine Ratio 22.7 H, Glucose 113 H, Calcium 9.0, Troponin I < 0.015 12/10/17 17:52: B-Natriuretic Peptide 34.9 12/11/17 06:46: WBC Cancelled, Corrected WBC Cancelled, RBC Cancelled, Hgb Cancelled, Hct Cancelled, MCV Cancelled, MCH Cancelled, MCHC Cancelled, RDW Cancelled, RDW Differential Cancelled, Plt Count Cancelled, MPV Cancelled, Immature Gran % (Auto) Cancelled, Neut % (Auto) Cancelled, Lymph % (Auto) Cancelled, [place] % (Auto) Cancelled, Eos % (Auto) Cancelled, Baso % (Auto) Cancelled, Absolute Neuts (auto) Cancelled, Absolute Lymphs (auto) Cancelled, Total Counted Cancelled, Neutrophils % (Manual) Cancelled, Band Neutrophils % Cancelled, Lymphocytes % (Manual) Cancelled, Monocytes % (Manual) Cancelled, Eosinophils % (Manual) Cancelled, Basophils % (Manual) Cancelled, Metamyelocytes % Cancelled, Myelocytes % Cancelled, Promyelocytes % Cancelled, Blast Cells % Cancelled, Plasma Cell % (Manual) Cancelled, Other Cells % Cancelled, Nucleated RBCs/100 WBC Cancelled, Differential Comment Cancelled, Diff Path Review Cancelled, Hypersegmented Neuts Cancelled, Atypical Lymphocytes Cancelled, Reactive Lymphocytes Cancelled, Smudge Cells Cancelled, Toxic Granulation Cancelled, Dohle Bodies Cancelled, Cynthia Rods Cancelled, Platelet Estimate Cancelled, Plt Morphology Comment Cancelled, RBC Morphology Cancelled, Polychromasia Cancelled, Hypochromasia Cancelled, Poikilocytosis Cancelled, Basophilic Stippling Cancelled, Anisocytosis Cancelled, Microcytosis Cancelled, Macrocytosis Cancelled, Spherocytes Cancelled, Sickle Cells Cancelled, Target Cells Cancelled, Tear Drop Cells Cancelled, Ovalocytes Cancelled, Stomatocytes Cancelled, [place] Bodies Cancelled, Howie Cells Cancelled, Bite Cells Cancelled, Acanthocytes (Spur) Cancelled, Rouleaux Cancelled, Schistocytes Cancelled 12/11/17 06:46: Sodium 133 L, Potassium 4.7, Chloride 98, Carbon Dioxide 30.0, Anion Gap 5, BUN 11, Creatinine 0.47 L, Estim Creat Clear Calc 92.57, Est GFR (MDRD) Af Amer 174, Est GFR (MDRD) Non-Af 144, BUN/Creatinine Ratio 23.4 H, Glucose 253 H, Calcium 8.6 12/11/17 07:28: WBC 8.4, RBC 4.29, Hgb 11.8 L, Hct 39.0, MCV 90.9, MCH 27.5, MCHC 30.3 L, RDW 12.5, RDW Differential 41.1, Plt Count 347, MPV 8.5, Immature Gran % (Auto) 0.200, Neut % (Auto) 89.6 H, Lymph % (Auto) 9.2 L, [place] % (Auto) 0.8, Eos % (Auto) 0.1, Baso % (Auto) 0.1, Absolute Neuts (auto) 7.5, Absolute Lymphs (auto) 0.77 L, Total Counted Not Reportable Current Medications Acetaminophen (Tylenol) 650 mg PO Q6H PRN PRN PRN Reason: Non-cardiac pain (mod-severe) Al Hydroxide/Mg Hydroxide (Mylanta Ii) 30 ml PO Q6H PRN PRN PRN Reason: Gastric burning Albuterol Sulfate (Ventolin Aerosols) 2.5 mg INHALATION Q2H PRN PRN PRN Reason: SHORTNESS OF BREATH Albuterol/Ipratropium (Duoneb) 3 ml INHALATION Q4H.RT [facility] Last Admin: 12/11/17 11:01 Dose: 3 ml Aspirin (Ecotrin) 81 mg PO DAILY@0800 [facility] Last Admin: 12/11/17 10:01 Dose: 81 mg Atorvastatin Calcium (Lipitor) 40 mg PO QHS [facility] Last Admin: 12/10/17 22:50 Dose: 40 mg Bupropion HCl (Wellbutrin Xl) 300 mg PO DAILY [facility] Last Admin: 12/11/17 10:00 Dose: 300 mg Carvedilol (Coreg) 12.5 mg PO BID [facility] Last Admin: 12/11/17 10:00 Dose: 12.5 mg Colchicine (Colchicine) 0.6 mg PO DAILY PRN PRN PRN Reason: JOINT STIFFNESS Digoxin (Lanoxin) 250 mcg PO DAILY [facility] Last Admin: 12/11/17 10:01 Dose: 250 mcg Enoxaparin Sodium (Lovenox) 40 mg SC DAILY@1000 [facility] Last Admin: 12/11/17 10:00 Dose: 40 mg Furosemide (Lasix) 20 mg PO DAILY [facility] Last Admin: 12/11/17 10:01 Dose: 20 mg Guaifenesin (Mucinex) 1,200 mg PO BID [facility] Last Admin: 12/11/17 10:00 Dose: 1,200 mg Losartan Potassium (Cozaar) 50 mg PO DAILY [facility] Last Admin: 12/11/17 10:01 Dose: 50 mg Magnesium Hydroxide (Milk Of Magnesia) 30 ml PO DAILY PRN PRN PRN Reason: Constipation Methylprednisolone (Solu-Medrol) 40 mg IV Q8 [facility] Last Admin: 12/11/17 13:46 Dose: 40 mg Nutritional Formula (Lactose Free) (Glucerna Shake) 120 ml PO TIDCM [facility] Last Admin: 12/11/17 13:44 Dose: 120 ml Ondansetron HCl (Zofran) 4 mg IV Q8H PRN PRN PRN Reason: NAUSEA Oxymetazoline HCl (Afrin (Bkc)) 2 spray NASAL BID [facility] Stop: 12/13/17 10:01 Last Admin: 12/11/17 10:02 Dose: 2 spray Promethazine HCl (Phenergan) 12.5 mg IV Q6H PRN PRN PRN Reason: NAUSEA/VOMITING Sertraline HCl (Zoloft) 100 mg PO DAILY [facility] Last Admin: 12/11/17 10:00 Dose: 100 mg Sodium Chloride () 5 - 30 ml IV UD PRN PRN Reason: SALINE FLUSH Last Admin: 12/11/17 13:44 Dose: 10 ml Sodium Chloride ([place] Nasal [place]) 2 spray NASAL TID PRN PRN PRN Reason: NASAL DRYNESS Last Admin: 12/11/17 09:59 Dose: 2 spray Spironolactone (Aldactone) 25 mg PO DAILY [facility] Last Admin: 12/11/17 10:01 Dose: 25 mg Medical Necessity - Tobacco Use Smoking Status: Former smoker - Quit 2014, smoked 1-1.5 ppd prior to this, cigarette tobacco. Tobacco Use: Non-smoker Assessment/Plan All Active Problems (Last Updated 06/30/17 @ 17:00 by Renetta Almodovar) COPD exacerbation (Acute) Cardiac tamponade (Acute) Patient is a 57-year-old white female with known history of chronic systolic heart failure status post AICD/pacemaker, dilated cardiomyopathy, depression, anxiety, hypertension, hyperlipidemia, obesity, chronic hypoxic respiratory failure with COPD usually on 2.5 L of nasal cannula, tobacco abuse in the past, who presented to the hospital for this cough congestion and what looks to be acute exacerbation of COPD. Acute on chronic COPD exacerbation w/ Hypoxia on Chronic Respiratory Failure: We will repeat chest x-ray again in the morning, will continue steroid therapy, continue oxygen, nebulizers, and monitor. Sputum cultures so far negative viral panel is negative. Patient seems to be improving was previously in the low 80s now and low 90s. Patient is requesting to see her it consulting manager Dr. Wallace will consult him in the morning. Patient will likely be here for couple days depending on response. Chronic Systolic CHF, Dilated Cardiomyopathy: s/p AICD/pacemaker placement. Following w/ Dr. Yeboah. Maintain on home regimen asa, spironolactone, losartan, Lasix, digoxin, Coreg, statin. Hypertension: Continue home regimen including Loly lactone, losartan, Lasix, Coreg, PRN hydralazine. Hyperlipidemia: Continue home statin regimen. Obesity: Weight loss and lifestyle changes encouraged though unable to do secondary to shortness of breath at this time. Former Tobacco use: Encourage continued cessation. Anxiety and Depression: Maintain on home regimen sertraline. DVT Prophylaxis: SCDs, lovenox, CODE STATUS full patient has a living well if she is deemed unrecoverable chart is dictated with medical case manager software. Errors may occur in dictation that may change providers meaning. This note was generated with [employer] dictation software. It may contain incorrect words, spelling, and punctuation that were not noted in checking the note before signing.
--- NOTE | 2017-12-11 14:15 | PN_ITS ---
Patient Problems: Active and Suspected Problems (Last Updated 06/30/17 @ 17:00 by Renetta Almodovar) COPD exacerbation (Acute) Subjective: Patient is a 57-year-old white female with known history of chronic systolic heart failure status post AICD/pacemaker, dilated cardiomyopathy, depression, anxiety, hypertension, hyperlipidemia, obesity, chronic hypoxic respiratory failure with COPD usually on 2.5 L of nasal cannula, tobacco abuse in the past, who presented to the hospital for this cough congestion and what looks to be acute exacerbation of COPD. States that she feels better than she did last night, but he she is requesting to see her research spec Dr. Wallace as she was scheduled to see him . However patient was in the hospital. Patient denies any nausea vomiting or chest pain currently still has cough no minimal production at this time. Respiratory panel was negative. Vitals/I&O's: Vital Signs Temp Pulse Resp BP Pulse Ox 98.7 F 92 20 H 130/64 H 88 12/11/17 10:29 12/11/17 11:01 12/11/17 11:01 12/11/17 10:29 12/11/17 10:29 Oxygen Flow Rate (L/min) 3 Oxygen Delivery Method Room Air Weight: 78.6 kg Body Mass Index (BMI) 33.8 Intake and Output for Last 24 Hours 12/09/17 12/10/17 12/11/17 23:59 23:59 23:59 Intake Total 500 / 500 500 / 500 Balance 500 / 500 500 / 500 General: Alert, Oriented x3, Cooperative HEENT: Atraumatic, PERRLA, EOMI Oral: Moist Mucosa, No Gingival or Mucosal Lesions/ Ulcerations Neck: Supple, No JVD, Trachea Midline Lungs: No rales, Diminished - Diminished breath sounds bilateral bases prolonged expiratory phase, Rhonchi, Wheezes - Expiratory wheeze Cardiovascular: Normal S1, Normal S2, Murmur - Systolic Abdomen: Soft, Non Tender, Non-Distended Extremities: No clubbing, No cyanosis, Edema Skin: No rashes, No breakdown Musculoskeletal: No Tenderness to Palpation of Joints or Extremities, No Muscle Wasting Lymphatic: No Cervical, Supraclavicular, or Inguinal Adenopathy Neurological: Cranial nerves II-XII grossly intact, Neuro grossly intact Psych/Mental Status: Normal Affect, Appropriate, Alert and oriented to time, place, person, mood and affect Microbiology Past 72 Hours 12/11/17 00:25 Sputum, Expectorated/Coughed Gram Stain - Final 12/10/17 23:25 Mucosa - Nose Respiratory Panel (PCR) - Final Laboratory Results 12/10/17 17:52: WBC 9.4, RBC 4.40, Hgb 11.8 L, Hct 40.4, MCV 91.8, MCH 26.8 L, MCHC 29.2 L, RDW 12.8, RDW Differential 43.0, Plt Count 329, MPV 8.6, Immature Gran % (Auto) 0.200, Neut % (Auto) 74.6 H, Lymph % (Auto) 17.3 L, [place] % (Auto) 7.3, Eos % (Auto) 0.4, Baso % (Auto) 0.2, Absolute Neuts (auto) 7.0, Absolute Lymphs (auto) 1.63, Total Counted Not Reportable 12/10/17 17:52: Sodium 136, Potassium 4.1, Chloride 93 L, Carbon Dioxide 39.0 H, Anion Gap 4 L, BUN 10, Creatinine 0.44 L, Estim Creat Clear Calc 98.88, Est GFR (MDRD) Af Amer 188, Est GFR (MDRD) Non-Af 155, BUN/Creatinine Ratio 22.7 H, Glucose 113 H, Calcium 9.0, Troponin I < 0.015 12/10/17 17:52: B-Natriuretic Peptide 34.9 12/11/17 06:46: WBC Cancelled, Corrected WBC Cancelled, RBC Cancelled, Hgb Cancelled, Hct Cancelled, MCV Cancelled, MCH Cancelled, MCHC Cancelled, RDW Cancelled, RDW Differential Cancelled, Plt Count Cancelled, MPV Cancelled, Immature Gran % (Auto) Cancelled, Neut % (Auto) Cancelled, Lymph % (Auto) Cancelled, [place] % (Auto) Cancelled, Eos % (Auto) Cancelled, Baso % (Auto) Cancelled, Absolute Neuts (auto) Cancelled, Absolute Lymphs (auto) Cancelled, Total Counted Cancelled, Neutrophils % (Manual) Cancelled, Band Neutrophils % Cancelled, Lymphocytes % (Manual) Cancelled, Monocytes % (Manual) Cancelled, Eosinophils % (Manual) Cancelled, Basophils % (Manual) Cancelled, Metamyelocytes % Cancelled, Myelocytes % Cancelled, Promyelocytes % Cancelled, Blast Cells % Cancelled, Plasma Cell % (Manual) Cancelled, Other Cells % Cancelled, Nucleated RBCs/100 WBC Cancelled, Differential Comment Cancelled, Diff Path Review Cancelled, Hypersegmented Neuts Cancelled, Atypical Lymphocytes Cancelled, Reactive Lymphocytes Cancelled, Smudge Cells Cancelled, Toxic Granulation Cancelled, Dohle Bodies Cancelled, Cynthia Rods Cancelled, Platelet Estimate Cancelled, Plt Morphology Comment Cancelled, RBC Morphology Cancelled, Polychromasia Cancelled, Hypochromasia Cancelled, Poikilocytosis Cancelled, Basophilic Stippling Cancelled, Anisocytosis Cancelled, Microcytosis Cancelled, Macrocytosis Cancelled, Spherocytes Cancelled, Sickle Cells Cancelled, Target Cells Cancelled, Tear Drop Cells Cancelled, Ovalocytes Cancelled, Stomatocytes Cancelled, Kings[place] Bodies Cancelled, [place] Cells Cancelled, Bite Cells Cancelled, Acanthocytes (Spur) Cancelled, Rouleaux Cancelled, Schistocytes Cancelled 12/11/17 06:46: Sodium 133 L, Potassium 4.7, Chloride 98, Carbon Dioxide 30.0, Anion Gap 5, BUN 11, Creatinine 0.47 L, Estim Creat Clear Calc 92.57, Est GFR (MDRD) Af Amer 174, Est GFR (MDRD) Non-Af 144, BUN/Creatinine Ratio 23.4 H, Glucose 253 H, Calcium 8.6 12/11/17 07:28: WBC 8.4, RBC 4.29, Hgb 11.8 L, Hct 39.0, MCV 90.9, MCH 27.5, MCHC 30.3 L, RDW 12.5, RDW Differential 41.1, Plt Count 347, MPV 8.5, Immature Gran % (Auto) 0.200, Neut % (Auto) 89.6 H, Lymph % (Auto) 9.2 L, [place] % (Auto) 0.8, Eos % (Auto) 0.1, Baso % (Auto) 0.1, Absolute Neuts (auto) 7.5, Absolute Lymphs (auto) 0.77 L, Total Counted Not Reportable Current Medications Acetaminophen (Tylenol) 650 mg PO Q6H PRN PRN PRN Reason: Non-cardiac pain (mod-severe) Al Hydroxide/Mg Hydroxide (Mylanta Ii) 30 ml PO Q6H PRN PRN PRN Reason: Gastric burning Albuterol Sulfate (Ventolin Aerosols) 2.5 mg INHALATION Q2H PRN PRN PRN Reason: SHORTNESS OF BREATH Albuterol/Ipratropium (Duoneb) 3 ml INHALATION Q4H.RT [facility] Last Admin: 12/11/17 11:01 Dose: 3 ml Aspirin (Ecotrin) 81 mg PO DAILY@0800 [facility] Last Admin: 12/11/17 10:01 Dose: 81 mg Atorvastatin Calcium (Lipitor) 40 mg PO QHS [facility] Last Admin: 12/10/17 22:50 Dose: 40 mg Bupropion HCl (Wellbutrin Xl) 300 mg PO DAILY [facility] Last Admin: 12/11/17 10:00 Dose: 300 mg Carvedilol (Coreg) 12.5 mg PO BID [facility] Last Admin: 12/11/17 10:00 Dose: 12.5 mg Colchicine (Colchicine) 0.6 mg PO DAILY PRN PRN PRN Reason: JOINT STIFFNESS Digoxin (Lanoxin) 250 mcg PO DAILY [facility] Last Admin: 12/11/17 10:01 Dose: 250 mcg Enoxaparin Sodium (Lovenox) 40 mg SC DAILY@1000 [facility] Last Admin: 12/11/17 10:00 Dose: 40 mg Furosemide (Lasix) 20 mg PO DAILY [facility] Last Admin: 12/11/17 10:01 Dose: 20 mg Guaifenesin (Mucinex) 1,200 mg PO BID [facility] Last Admin: 12/11/17 10:00 Dose: 1,200 mg Losartan Potassium (Cozaar) 50 mg PO DAILY [facility] Last Admin: 12/11/17 10:01 Dose: 50 mg Magnesium Hydroxide (Milk Of Magnesia) 30 ml PO DAILY PRN PRN PRN Reason: Constipation Methylprednisolone (Solu-Medrol) 40 mg IV Q8 [facility] Last Admin: 12/11/17 13:46 Dose: 40 mg Nutritional Formula (Lactose Free) (Glucerna Shake) 120 ml PO TIDCM [facility] Last Admin: 12/11/17 13:44 Dose: 120 ml Ondansetron HCl (Zofran) 4 mg IV Q8H PRN PRN PRN Reason: NAUSEA Oxymetazoline HCl (Afrin (Bkc)) 2 spray NASAL BID [facility] Stop: 12/13/17 10:01 Last Admin: 12/11/17 10:02 Dose: 2 spray Promethazine HCl (Phenergan) 12.5 mg IV Q6H PRN PRN PRN Reason: NAUSEA/VOMITING Sertraline HCl (Zoloft) 100 mg PO DAILY [facility] Last Admin: 12/11/17 10:00 Dose: 100 mg Sodium Chloride () 5 - 30 ml IV UD PRN PRN Reason: SALINE FLUSH Last Admin: 12/11/17 13:44 Dose: 10 ml Sodium Chloride ([place] Nasal [place]) 2 spray NASAL TID PRN PRN PRN Reason: NASAL DRYNESS Last Admin: 12/11/17 09:59 Dose: 2 spray Spironolactone (Aldactone) 25 mg PO DAILY [facility] Last Admin: 12/11/17 10:01 Dose: 25 mg Medical Necessity - Tobacco Use Smoking Status: Former smoker - Quit 2014, smoked 1-1.5 ppd prior to this, cigarette tobacco. Tobacco Use: Non-smoker Assessment/Plan All Active Problems (Last Updated 06/30/17 @ 17:00 by Renetta Almodovar) COPD exacerbation (Acute) Cardiac tamponade (Acute) Patient is a 57-year-old white female with known history of chronic systolic heart failure status post AICD/pacemaker, dilated cardiomyopathy, depression, anxiety, hypertension, hyperlipidemia, obesity, chronic hypoxic respiratory failure with COPD usually on 2.5 L of nasal cannula, tobacco abuse in the past, who presented to the hospital for this cough congestion and what looks to be acute exacerbation of COPD. Acute on chronic COPD exacerbation w/ Hypoxia on Chronic Respiratory Failure: We will repeat chest x-ray again in the morning, will continue steroid therapy, continue oxygen, nebulizers, and monitor. Sputum cultures so far negative viral panel is negative. Patient seems to be improving was previously in the low 80s now and low 90s. Patient is requesting to see her research spec Dr. Wallace will consult him in the morning. Patient will likely be here for couple days depending on response. Chronic Systolic CHF, Dilated Cardiomyopathy: s/p AICD/pacemaker placement. Following w/ Dr. Yeboah. Maintain on home regimen asa, spironolactone, losartan, Lasix, digoxin, Coreg, statin. Hypertension: Continue home regimen including Loly lactone, losartan, Lasix, Coreg, PRN hydralazine. Hyperlipidemia: Continue home statin regimen. Obesity: Weight loss and lifestyle changes encouraged though unable to do secondary to shortness of breath at this time. Former Tobacco use: Encourage continued cessation. Anxiety and Depression: Maintain on home regimen sertraline. DVT Prophylaxis: SCDs, lovenox, CODE STATUS full patient has a living well if she is deemed unrecoverable chart is dictated with lieutenant shift supervisor software. Errors may occur in dictation that may change providers meaning. This note was generated with [email or web address] dictation software. It may contain incorrect words, spelling, and punctuation that were not noted in checking the note before signing.
[2017-12-11] MEDS: Atorvastatin Calcium 40 MG Tablet PO (22:50)
[2017-12-11] MEDS: Magnesium Hydroxide 30 ML UDC PO (23:02)
[2017-12-12] VITALS (7 sets, daily range): BP systolic 127–138; BP diastolic 60–67; PULSE 77–84; RESP 18–20; TEMP 36.5–36.7; O2SAT 75–96
--- NOTE | 2017-12-12 05:55 | RAD_ITS ---
STUDY: X-RAY CHEST REASON FOR EXAM: Female, 57 years old. Shortness of breath TECHNIQUE: 1 view COMPARISON: December 10, 2017 FINDINGS: A dual-chamber cardiac pacemaker is in place. Mild cardiomegaly.. Normal visualized thoracic spine. Normal visualized ribs, clavicles, and shoulders. There is no demonstrated abnormality of the visualized soft tissue structures of the upper abdomen. RAD/Chest 1 View (Portable) IMPRESSION: Mild cardiomegaly. No acute findings in the lungs Electronically Signed: Maximo Cortes MD at 7:12 EDT Tel , Service support ,
[2017-12-12] MEDS: 0.9% NaCl Peripheral Flush Adult/Peds IV (06:47)
[2017-12-12] MEDS: Ipratropium/Albuterol Sulfate 3 ML AMPUL.NEB INHALATION (07:05)
[2017-12-12 07:31] LABS: Absolute Lymphocyte Count 1.43 X10^3/ul (0.83-4.51); Absolute Neutrophil Count 11.3 X10^3/uL (2.0-7.7); Basophil# 0.01 X10^3/uL; Basophil% 0.1 % (0-1); Hematocrit 38.5 % (37-47); Hemoglobin 11.4 g/dl (12.0-15.0); Lymphocyte # 1.43 X10^3/ul (4.0); Lymphocyte % 10.8 % (19-41); Mean Corp Hgb Conc 29.6 g/gl (32-36); Mean Corpuscular Hgb 26.5 pg (27.0-32.0); Mean Corpuscular Volume 89.5 fL (81-99); Mean Platelet Vol. 8.6 fl (6.2-12.0); Monocyte% 3.8 % (0-10); Neutrophil # 11.32 X10^3/uL (2.7-7.7); Neutrophil % 85.1 % (47-70); Platelet Count 353 K/mm3 (150-450); RBC Distribution Width CV 12.8 % (11.6-14.6); RBC Distribution Width SD 41.1 fl (35.1-43.9); White Blood Count 13.3 K/mm3 (4.4-11.0)
[2017-12-12 07:32] LABS: POSITIVE COUNT NO; POSITIVE DIFFERENTIAL NO; POSITIVE MORPHOLOGY NO
--- NOTE | 2017-12-12 07:37 | PCM.CONS.GEN ---
Reason for Consult Date of Consultation: 12/12/17 Reason for Consultation: COPD exacerbation History of Present Illness: The patient is a 57-year-old female, with a history as outlined below, who presented to the emergency department on December 10 with complaints of shortness of breath. The patient has a self-reported history of COPD, but there are no PFTs on file to confirm this assertion. She was scheduled to see me next week in the pulmonary medicine clinic. She did complete a 6-minute walk test in October 2015 which revealed the need for 3 L/min of supplemental oxygen with exertion. On presentation to the emergency department, the patient was noted to be afebrile and hemodynamically stable. She was hypoxic, saturating 84% on room air. Laboratory evaluation revealed no evidence of a leukocytosis. Troponin and BNP were within normal limits. Plain film chest x-ray revealed hyperinflated lung mccray with flattening of the diaphragms and blunting of the costophrenic angles bilaterally. The patient was placed on IV steroids and scheduled bronchodilators. She was subsequently admitted to the medical surgical floor for ongoing management. Past Medical History Past Medical History (Chronic Problems): Chronic Problems (Last Updated 06/30/17 @ 17:00 by Renetta Almodovar) Obesity (BMI 30.0-34.9) (Chronic) RBBB (right bundle branch block) (Chronic) Hyperlipidemia (Chronic) Cardiomyopathy, dilated (Chronic) Hypertension (Chronic) Nonrheumatic mitral valve regurgitation (Chronic) Chronic systolic congestive heart failure (Chronic) Biventricular automatic implantable cardioverter defibrillator in situ (Chronic ~01/05/15) Atherosclerotic heart disease of [place] coronary artery without angina pectoris (Chronic) Ventricular tachycardia (Chronic) Medical History: Medical History (Last Updated 06/30/17 @ 17:00 by Renetta Almodovar) RBBB (right bundle branch block) (Chronic) I45.10 Hyperlipidemia (Chronic) E78.5 Cardiomyopathy, dilated (Chronic) I42.0 Hypertension (Chronic) I10 Nonrheumatic mitral valve regurgitation (Chronic) I34.0 Chronic systolic congestive heart failure (Chronic) I50.22 Biventricular automatic implantable cardioverter defibrillator in situ (Chronic) Onset Date: ~01/05/15 Z95.810 Atherosclerotic heart disease of [place] coronary artery without angina pectoris (Chronic) I25.10 Ventricular tachycardia (Chronic) I47.2 Anxiety F41.9 COPD (chronic obstructive pulmonary disease) J44.9 Depression F32.9 Allergies acetaminophen [From Vicodin] Allergy (Verified 12/10/17 17:37) Hives hydrocodone bitartrate [From Vicodin] Allergy (Verified 12/10/17 17:37) Hives Penicillins Allergy (Verified 12/10/17 17:37) Anaphylaxis Home Medications: Ambulatory Orders Medication Instructions Recorded Digoxin [Lanoxin] 250 mcg PO DAILY #30 tab 04/29/14 Furosemide [Lasix] 20 mg PO DAILY #30 tab 04/29/14 Losartan Potassium [Cozaar] 50 mg PO DAILY 04/16/15 Oxygen, Home [Home Oxygen] 2 lpm NASAL DAILY PRN 04/16/15 Spironolactone [Aldactone] 25 mg PO DAILY 04/16/15 albuterol sulfate HFA 90 2 puff INHALATION Q4H PRN 06/30/17 mcg/actuation aerosol inhaler atorvastatin 40 mg tablet 40 mg PO QDAY 06/30/17 carvedilol 12.5 mg tablet 12.5 mg PO BID 06/30/17 fluticasone 250 mcg-salmeterol 50 1 inh INHALATION Q12H 06/30/17 mcg/dose blistr powdr for inhalation sertraline 100 mg tablet 100 mg PO QDAY 06/30/17 Albuterol Aerosols [Ventolin 2.5 mg INHALATION Q4HWA.RT 12/10/17 Aerosols] Diclofenac [Voltaren] 50 mg PO BIDCM 12/10/17 Levothyroxine [Synthroid] 25 mcg PO DAILY 12/10/17 Paroxetine HCl [Paxil] 40 mg PO DAILY 12/10/17 Tamsulosin HCl [Flomax] 0.4 mg PO QHS 12/10/17 Acetaminophen [Tylenol Tablet] 650 mg PO Q6H PRN PRN tablet 12/12/17 Aspirin E.C. [Ecotrin] 81 mg PO DAILY@0800 #30 tablet 12/12/17 Budesonide/Formoterol 160/4.5 2 puff INHALATION BID 30 Days #1 12/12/17 [Symbicort 160/4.5 Mcg Inhaler inhaler (SP)] Glucerna Shake 120 ml PO TIDCM #120 liquid 12/12/17 Guaifenesin [Mucinex] 1,200 mg PO BID #20 tablet 12/12/17 Prednisone [Deltasone] 40 mg PO DAILY #5 tablet 12/12/17 Sodium Chloride 0.65% [[place] Nasal 2 spray NASAL TID PRN PRN #1 12/12/17 [place]] spray.btl Surgical History: Surgical History (Last Updated 06/30/17 @ 17:00 by Renetta Almodovar) History of tubal ligation Z98.51 Status post pericardiocentesis Z98.890 Surgical History: - - x 2, hysterectomy, AICD/pacemaker placement. 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 Tobacco Use: Non-smoker Alcohol: None Drugs: None - *Family History Maternal Family History: Family History (Last Updated 06/30/17 @ 17:01 by Renetta Almodovar) Father CAD (coronary artery disease) Hypertension Mother CAD (coronary artery disease) Hypertension Diabetes Brother CAD (coronary artery disease) History Items: Diabetes, Heart Disease, Hypertension Paternal Family History: Family History (Last Updated 06/30/17 @ 17:01 by Renetta Almodovar) Father CAD (coronary artery disease) Hypertension Mother CAD (coronary artery disease) Hypertension Diabetes Brother CAD (coronary artery disease) History Items: Heart Disease, Hypertension Review of Systems Constitutional: Denies: Chills, Fever Eyes: Denies: Blurred vision, Double vision HEENT: Denies: Head Aches, Sinus Congestion, Sinus Drainage Cardiovascular: Denies: Chest Pain, Palpitations Respiratory: Reports: Shortness of Breath Gastrointestinal: Denies: Abdominal Pain, Nausea, Vomiting Genitourinary: Denies: Dysuria Musculoskeletal: Denies: Joint Pain, Joint Tenderness Skin: Denies: Rash, Wounds Neurological: Denies: Numbness, Tingling, Focal weakness Psychiatric: Reports: Anxiety, Depression Hematologic/ Lymphatic: Denies: Easy Bruising, Easy Bleeding Objective: The patient's most recent lab work, culture data and imaging studies have all been personally reviewed. Expectorated sputum appears to be normal respiratory ronda. Respiratory viral panel was negative. - Physical Exam General: Alert, Cooperative, No apparent distress HEENT: Atraumatic, PERRLA, Normocephalic Oral: No Gingival or Mucosal Lesions/ Ulcerations Neck: Supple, No Nodes, Trachea Midline Lungs: - - Globally diminished air movement bilaterally Cardiovascular: Regular rate, Regular Rhythm, Normal S1, Normal S2, No murmurs Abdomen: Bowel Sounds Present, Soft, Non Tender, Obese Extremities: No clubbing, No cyanosis, No edema Skin: No breakdown Musculoskeletal: No Tenderness to Palpation of Joints or Extremities, No Muscle Wasting Lymphatic: No Cervical, Supraclavicular, or Inguinal Adenopathy Neurological: Cranial nerves II-XII grossly intact, Neuro grossly intact Psych/Mental Status: Alert and oriented to time, place, person, mood and affect Vital Signs Temp Pulse Resp BP Pulse Ox 97.7 F L 77 18 127/60 H 96 12/12/17 04:00 12/12/17 04:17 12/12/17 04:17 12/12/17 04:00 12/12/17 04:17 Oxygen Flow Rate (L/min) 3 Oxygen Delivery Method Nasal Cannula Weight: 173 lb 4.533 oz Body Mass Index (BMI) 33.8 Intake and Output for Last 24 Hours 12/10/17 12/11/17 12/12/17 23:59 23:59 23:59 Intake Total 500 / 500 500 / 500 500 / 500 Balance 500 / 500 500 / 500 500 / 500 Microbiology Past 72 Hours 12/11/17 00:25 Gram Stain - Final Sputum, Expectorated/Coughed Respiratory Culture - Preliminary Appears to be normal respiratory ronda. Further studies to follow. 12/10/17 23:25 Respiratory Panel (PCR) - Final Mucosa - Nose Laboratory Tests Past 24 Hrs 12/11/17 12/12/17 12/12/17 07:28 06:56 06:56 WBC 8.4 13.3 H RBC 4.29 4.30 Hgb 11.8 L 11.4 L Hct 39.0 38.5 MCV 90.9 89.5 MCH 27.5 26.5 L MCHC 30.3 L 29.6 L RDW 12.5 12.8 RDW Differential 41.1 41.1 Plt Count 347 353 MPV 8.5 8.6 Immature Gran % (Auto) 0.200 0.200 Neut % (Auto) 89.6 H 85.1 H Lymph % (Auto) 9.2 L 10.8 L [place] % (Auto) 0.8 3.8 Eos % (Auto) 0.1 0.0 Baso % (Auto) 0.1 0.1 Absolute Neuts (auto) 7.5 11.3 H Absolute Lymphs (auto) 0.77 L 1.43 Total Counted Not Reportable Not Reportable Sodium Pending Potassium Pending Chloride Pending Carbon Dioxide Pending Anion Gap Pending BUN Pending Creatinine Pending Est GFR (MDRD) Af Amer Pending Est GFR (MDRD) Non-Af Pending BUN/Creatinine Ratio Pending Glucose Pending Calcium Pending Phosphorus Pending Magnesium Pending Total Bilirubin Pending AST Pending ALT Pending Alkaline Phosphatase Pending Total Protein Pending Albumin Pending Clinical Impression(s) from Imaging Studies Chest X-Ray 12/10/17 18:20 IMPRESSION: Small bilateral effusions. Hemidiaphragmatic flattening which may be associated with COPD. Degenerative changes of the thoracic spine. Findings are similar to the previous study. Electronically Signed: Mango Keene MD at 18:36 EDT , Service support , Chest X-Ray 12/12/17 05:55 IMPRESSION: Mild cardiomegaly. No acute findings in the lungs Electronically Signed: Maximo Cortes MD at 7:12 EDT Tel , Service support , Assessment/Plan All Active Problems (Last Updated 06/30/17 @ 17:00 by Renetta Almodovar) COPD exacerbation (Acute) Cardiac tamponade (Acute) RECOMMENDATIONS: 1. Continue scheduled bronchodilators. 2. Transition from IV methylprednisone to prednisone 40 mg daily, with plans for a 5-day burst at discharge. 3. Perform a walking oximetry study prior to consideration for discharge from the hospital. 4. Resume baseline Spiriva and as needed albuterol at discharge. 5. The patient is to follow-up with me in the pulmonary medicine clinic as scheduled next week. IMPRESSIONS: 1. Suspected COPD of unknown severity The patient has suspected underlying COPD, given her extensive smoking history. I did see her previously several years ago in the pulmonary medicine clinic. However, the patient failed to follow-up with me for any additional testing, for a number of psychosocial issues. She is now willing to undergo pulmonary function testing and admits that she will remain compliant with follow-up. She is currently scheduled to be seen in the pulmonary medicine clinic next week. At the current time, the patient does not appear to be acutely infected. Recommend continuing scheduled bronchodilators and transitioning to p.o. prednisone 40 mg daily. At discharge, would plan to send her with a 5-day burst of prednisone. She can continue to utilize her baseline Spiriva and as needed albuterol in her home environment until her follow-up office visit with us next week. She undoubtedly needs to undergo pulmonary function testing and will need further optimization of her baseline inhaler regimen. 2. Acute on chronic hypoxemic respiratory failure The patient's previous 6-minute walk test completed several years ago did reveal a 3 L/min supplemental oxygen requirement. Would recommend performing a walking oximetry study prior to consideration for discharge from the hospital. 3. Tobacco dependency, in remission Ongoing tobacco cessation strongly encouraged. 4. Chronic systolic heart failure/hypothyroidism/depression/anxiety Complicates care, management, recovery and prognosis. Okay to continue home medications from my perspective. This note was generated with [employer] dictation software. It may contain incorrect words, spelling, and punctuation that were not noted in checking the note before signing. Code Visit Inpatient E&M: 81782 Init Hosp L3
--- NOTE | 2017-12-12 07:41 | CON.PCM_ITS ---
Reason for Consult Date of Consultation: 12/12/17 Reason for Consultation: COPD exacerbation History of Present Illness: The patient is a 57-year-old female, with a history as outlined below, who presented to the emergency department on December 10 with complaints of shortness of breath. The patient has a self-reported history of COPD, but there are no PFTs on file to confirm this assertion. She was scheduled to see me next week in the pulmonary medicine clinic. She did complete a 6-minute walk test in October 2015 which revealed the need for 3 L/min of supplemental oxygen with exertion. On presentation to the emergency department, the patient was noted to be afebrile and hemodynamically stable. She was hypoxic, saturating 84% on room air. Laboratory evaluation revealed no evidence of a leukocytosis. Troponin and BNP were within normal limits. Plain film chest x-ray revealed hyperinflated lung mccray with flattening of the diaphragms and blunting of the costophrenic angles bilaterally. The patient was placed on IV steroids and scheduled bronchodilators. She was subsequently admitted to the medical surgical floor for ongoing management. Past Medical History Past Medical History (Chronic Problems): Chronic Problems (Last Updated 06/30/17 @ 17:00 by Renetta Almodovar) Obesity (BMI 30.0-34.9) (Chronic) RBBB (right bundle branch block) (Chronic) Hyperlipidemia (Chronic) Cardiomyopathy, dilated (Chronic) Hypertension (Chronic) Nonrheumatic mitral valve regurgitation (Chronic) Chronic systolic congestive heart failure (Chronic) Biventricular automatic implantable cardioverter defibrillator in situ (Chronic ~01/05/15) Atherosclerotic heart disease of [place] coronary artery without angina pectoris (Chronic) Ventricular tachycardia (Chronic) Medical History: Medical History (Last Updated 06/30/17 @ 17:00 by Renetta Almodovar) RBBB (right bundle branch block) (Chronic) I45.10 Hyperlipidemia (Chronic) E78.5 Cardiomyopathy, dilated (Chronic) I42.0 Hypertension (Chronic) I10 Nonrheumatic mitral valve regurgitation (Chronic) I34.0 Chronic systolic congestive heart failure (Chronic) I50.22 Biventricular automatic implantable cardioverter defibrillator in situ (Chronic) Onset Date: ~01/05/15 Z95.810 Atherosclerotic heart disease of [place] coronary artery without angina pectoris (Chronic) I25.10 Ventricular tachycardia (Chronic) I47.2 Anxiety F41.9 COPD (chronic obstructive pulmonary disease) J44.9 Depression F32.9 Allergies acetaminophen [From Vicodin] Allergy (Verified 12/10/17 17:37) Hives hydrocodone bitartrate [From Vicodin] Allergy (Verified 12/10/17 17:37) Hives Penicillins Allergy (Verified 12/10/17 17:37) Anaphylaxis Home Medications: Ambulatory Orders Medication Instructions Recorded Digoxin [Lanoxin] 250 mcg PO DAILY #30 tab 04/29/14 Furosemide [Lasix] 20 mg PO DAILY #30 tab 04/29/14 Losartan Potassium [Cozaar] 50 mg PO DAILY 04/16/15 Oxygen, Home [Home Oxygen] 2 lpm NASAL DAILY PRN 04/16/15 Spironolactone [Aldactone] 25 mg PO DAILY 04/16/15 albuterol sulfate HFA 90 2 puff INHALATION Q4H PRN 06/30/17 mcg/actuation aerosol inhaler atorvastatin 40 mg tablet 40 mg PO QDAY 06/30/17 carvedilol 12.5 mg tablet 12.5 mg PO BID 06/30/17 fluticasone 250 mcg-salmeterol 50 1 inh INHALATION Q12H 06/30/17 mcg/dose blistr powdr for inhalation sertraline 100 mg tablet 100 mg PO QDAY 06/30/17 Albuterol Aerosols [Ventolin 2.5 mg INHALATION Q4HWA.RT 12/10/17 Aerosols] Diclofenac [Voltaren] 50 mg PO BIDCM 12/10/17 Levothyroxine [Synthroid] 25 mcg PO DAILY 12/10/17 Paroxetine HCl [Paxil] 40 mg PO DAILY 12/10/17 Tamsulosin HCl [Flomax] 0.4 mg PO QHS 12/10/17 Acetaminophen [Tylenol Tablet] 650 mg PO Q6H PRN PRN tablet 12/12/17 Aspirin E.C. [Ecotrin] 81 mg PO DAILY@0800 #30 tablet 12/12/17 Budesonide/Formoterol 160/4.5 2 puff INHALATION BID 30 Days #1 12/12/17 [Symbicort 160/4.5 Mcg Inhaler inhaler (SP)] Glucerna Shake 120 ml PO TIDCM #120 liquid 12/12/17 Guaifenesin [Mucinex] 1,200 mg PO BID #20 tablet 12/12/17 Prednisone [Deltasone] 40 mg PO DAILY #5 tablet 12/12/17 Sodium Chloride 0.65% [[place] Nasal 2 spray NASAL TID PRN PRN #1 12/12/17 [place]] spray.btl Surgical History: Surgical History (Last Updated 06/30/17 @ 17:00 by Renetta Almodovar) History of tubal ligation Z98.51 Status post pericardiocentesis Z98.890 Surgical History: - - x 2, hysterectomy, AICD/pacemaker placement. 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 Tobacco Use: Non-smoker Alcohol: None Drugs: None - *Family History Maternal Family History: Family History (Last Updated 06/30/17 @ 17:01 by Renetta Almodovar) Father CAD (coronary artery disease) Hypertension Mother CAD (coronary artery disease) Hypertension Diabetes Brother CAD (coronary artery disease) History Items: Diabetes, Heart Disease, Hypertension Paternal Family History: Family History (Last Updated 06/30/17 @ 17:01 by Renetta Almodovar) Father CAD (coronary artery disease) Hypertension Mother CAD (coronary artery disease) Hypertension Diabetes Brother CAD (coronary artery disease) History Items: Heart Disease, Hypertension Review of Systems Constitutional: Denies: Chills, Fever Eyes: Denies: Blurred vision, Double vision HEENT: Denies: Head Aches, Sinus Congestion, Sinus Drainage Cardiovascular: Denies: Chest Pain, Palpitations Respiratory: Reports: Shortness of Breath Gastrointestinal: Denies: Abdominal Pain, Nausea, Vomiting Genitourinary: Denies: Dysuria Musculoskeletal: Denies: Joint Pain, Joint Tenderness Skin: Denies: Rash, Wounds Neurological: Denies: Numbness, Tingling, Focal weakness Psychiatric: Reports: Anxiety, Depression Hematologic/ Lymphatic: Denies: Easy Bruising, Easy Bleeding Objective: The patient's most recent lab work, culture data and imaging studies have all been personally reviewed. Expectorated sputum appears to be normal respiratory ronda. Respiratory viral panel was negative. - Physical Exam General: Alert, Cooperative, No apparent distress HEENT: Atraumatic, PERRLA, Normocephalic Oral: No Gingival or Mucosal Lesions/ Ulcerations Neck: Supple, No Nodes, Trachea Midline Lungs: - - Globally diminished air movement bilaterally Cardiovascular: Regular rate, Regular Rhythm, Normal S1, Normal S2, No murmurs Abdomen: Bowel Sounds Present, Soft, Non Tender, Obese Extremities: No clubbing, No cyanosis, No edema Skin: No breakdown Musculoskeletal: No Tenderness to Palpation of Joints or Extremities, No Muscle Wasting Lymphatic: No Cervical, Supraclavicular, or Inguinal Adenopathy Neurological: Cranial nerves II-XII grossly intact, Neuro grossly intact Psych/Mental Status: Alert and oriented to time, place, person, mood and affect Vital Signs Temp Pulse Resp BP Pulse Ox 97.7 F L 77 18 127/60 H 96 12/12/17 04:00 12/12/17 04:17 12/12/17 04:17 12/12/17 04:00 12/12/17 04:17 Oxygen Flow Rate (L/min) 3 Oxygen Delivery Method Nasal Cannula Weight: 173 lb 4.533 oz Body Mass Index (BMI) 33.8 Intake and Output for Last 24 Hours 12/10/17 12/11/17 12/12/17 23:59 23:59 23:59 Intake Total 500 / 500 500 / 500 500 / 500 Balance 500 / 500 500 / 500 500 / 500 Microbiology Past 72 Hours 12/11/17 00:25 Gram Stain - Final Sputum, Expectorated/Coughed Respiratory Culture - Preliminary Appears to be normal respiratory ronda. Further studies to follow. 12/10/17 23:25 Respiratory Panel (PCR) - Final Mucosa - Nose Laboratory Tests Past 24 Hrs 12/11/17 12/12/17 12/12/17 07:28 06:56 06:56 WBC 8.4 13.3 H RBC 4.29 4.30 Hgb 11.8 L 11.4 L Hct 39.0 38.5 MCV 90.9 89.5 MCH 27.5 26.5 L MCHC 30.3 L 29.6 L RDW 12.5 12.8 RDW Differential 41.1 41.1 Plt Count 347 353 MPV 8.5 8.6 Immature Gran % (Auto) 0.200 0.200 Neut % (Auto) 89.6 H 85.1 H Lymph % (Auto) 9.2 L 10.8 L [place] % (Auto) 0.8 3.8 Eos % (Auto) 0.1 0.0 Baso % (Auto) 0.1 0.1 Absolute Neuts (auto) 7.5 11.3 H Absolute Lymphs (auto) 0.77 L 1.43 Total Counted Not Reportable Not Reportable Sodium Pending Potassium Pending Chloride Pending Carbon Dioxide Pending Anion Gap Pending BUN Pending Creatinine Pending Est GFR (MDRD) Af Amer Pending Est GFR (MDRD) Non-Af Pending BUN/Creatinine Ratio Pending Glucose Pending Calcium Pending Phosphorus Pending Magnesium Pending Total Bilirubin Pending AST Pending ALT Pending Alkaline Phosphatase Pending Total Protein Pending Albumin Pending Clinical Impression(s) from Imaging Studies Chest X-Ray 12/10/17 18:20 IMPRESSION: Small bilateral effusions. Hemidiaphragmatic flattening which may be associated with COPD. Degenerative changes of the thoracic spine. Findings are similar to the previous study. Electronically Signed: Mango Keene MD at 18:36 EDT , Service support , Chest X-Ray 12/12/17 05:55 IMPRESSION: Mild cardiomegaly. No acute findings in the lungs Electronically Signed: Maximo Cortes MD at 7:12 EDT Tel , Service support , Assessment/Plan All Active Problems (Last Updated 06/30/17 @ 17:00 by Renetta Almodovar) COPD exacerbation (Acute) Cardiac tamponade (Acute) RECOMMENDATIONS: 1. Continue scheduled bronchodilators. 2. Transition from IV methylprednisone to prednisone 40 mg daily, with plans for a 5-day burst at discharge. 3. Perform a walking oximetry study prior to consideration for discharge from the hospital. 4. Resume baseline Spiriva and as needed albuterol at discharge. 5. The patient is to follow-up with me in the pulmonary medicine clinic as scheduled next week. IMPRESSIONS: 1. Suspected COPD of unknown severity The patient has suspected underlying COPD, given her extensive smoking history. I did see her previously several years ago in the pulmonary medicine clinic. However, the patient failed to follow-up with me for any additional testing, for a number of psychosocial issues. She is now willing to undergo pulmonary function testing and admits that she will remain compliant with follow-up. She is currently scheduled to be seen in the pulmonary medicine clinic next week. At the current time, the patient does not appear to be acutely infected. Recommend continuing scheduled bronchodilators and transitioning to p.o. prednisone 40 mg daily. At discharge, would plan to send her with a 5-day burst of prednisone. She can continue to utilize her baseline Spiriva and as needed albuterol in her home environment until her follow-up office visit with us next week. She undoubtedly needs to undergo pulmonary function testing and will need further optimization of her baseline inhaler regimen. 2. Acute on chronic hypoxemic respiratory failure The patient's previous 6-minute walk test completed several years ago did reveal a 3 L/min supplemental oxygen requirement. Would recommend performing a walking oximetry study prior to consideration for discharge from the hospital. 3. Tobacco dependency, in remission Ongoing tobacco cessation strongly encouraged. 4. Chronic systolic heart failure/hypothyroidism/depression/anxiety Complicates care, management, recovery and prognosis. Okay to continue home medications from my perspective. This note was generated with [employer] dictation software. It may contain incorrect words, spelling, and punctuation that were not noted in checking the note before signing. Code Visit Inpatient E&M: 82977 Init Hosp L3
[2017-12-12 07:59] LABS: ALB/GLOB Ratio 0.6 RATIO (0.9-2.4); AST(SGOT) 9 U/L (15-37); Alanine Aminotransfer ALT/SGPT 16 U/L (13-56); Albumin, Serum 2.6 g/dL (3.2-5.0); Alkaline Phosphatase 95 U/L (45-117); Anion Gap 3 (5-15); BUN 18 mg/dL (7-18); BUN/Creat Ratio 30.9 RATIO (10-20); Chloride 97 mmol/L (98-107); Creatinine, Serum 0.58 mg/dL (0.55-1.02); EST Glomerular Filtration Rate 113 mL/min (>60); Est Glom Filt Rate - Afr Amer 136 mL/min (>60); Estimated Creatinine Clearance 75.02 ml/min; Globulin 4.3 g/dL (2.2-4.2); Glucose 267 mg/dL (74-106); Magnesium 2.6 mg/dL (1.6-2.6); Phosphorus 3.4 mg/dL (2.5-4.9); Potassium 4.8 mmol/L (3.5-5.1); Protein, Total 6.9 g/dL (6.4-8.2); Sodium Level 138 mmol/L (136-145)
--- NOTE | 2017-12-12 08:47 | PCM.DC ---
- Discharge Diagnoses Current Active Problems: Current Active and Chronic Problems (Last Updated 06/30/17 @ 17:00 by Renetta Almodovar) COPD exacerbation (Acute) Obesity (BMI 30.0-34.9) (Chronic) You will use the following diet at home:: Cardiac Your food should be the consistency of: Regular Your liquids should be the consistency of: Regular/Thin Discharge Activity: Return to Normal Activity Call your doctor if you observe: Fever of 101 or Higher, Coldness, Increased Pain, Shortness of breath, Dizziness, Fainting spells, Chest pain, Increased palpitations (irregular heartbeat) Instructions: COPD: Using Inhalers, Diagnosis of COPD, Discharge Instructions: COPD, Treatment for COPD, What is COPD? Allergies/Adverse Reactions: Allergies acetaminophen [From Vicodin] Allergy (Verified 12/10/17 17:37) Hives hydrocodone bitartrate [From Vicodin] Allergy (Verified 12/10/17 17:37) Hives Penicillins Allergy (Verified 12/10/17 17:37) Anaphylaxis Medications to take at Discharge Digoxin [Lanoxin] 250 mcg PO DAILY #30 tab 04/29/14 Furosemide [Lasix] 20 mg PO DAILY #30 tab 04/29/14 Losartan Potassium [Cozaar] 50 mg PO DAILY 04/16/15 Oxygen, Home [Home Oxygen] 2 lpm NASAL DAILY PRN 04/16/15 Spironolactone [Aldactone] 25 mg PO DAILY 04/16/15 albuterol sulfate HFA 90 mcg/actuation aerosol inhaler 2 puff INHALATION Q4H PRN 06/30/17 atorvastatin 40 mg tablet 40 mg PO QDAY 06/30/17 carvedilol 12.5 mg tablet 12.5 mg PO BID 06/30/17 fluticasone 250 mcg-salmeterol 50 mcg/dose blistr powdr for inhalation 1 inh INHALATION Q12H 06/30/17 sertraline 100 mg tablet 100 mg PO QDAY 06/30/17 Albuterol Aerosols [Ventolin Aerosols] 2.5 mg INHALATION Q4HWA.RT 12/10/17 Diclofenac [Voltaren] 50 mg PO BIDCM 12/10/17 Levothyroxine [Synthroid] 25 mcg PO DAILY 12/10/17 Paroxetine HCl [Paxil] 40 mg PO DAILY 12/10/17 Tamsulosin HCl [Flomax] 0.4 mg PO QHS 12/10/17 Acetaminophen [Tylenol Tablet] 650 mg PO Q6H PRN PRN tablet 12/12/17 Aspirin E.C. [Ecotrin] 81 mg PO DAILY@0800 #30 tablet 12/12/17 Budesonide/Formoterol 160/4.5 [Symbicort 160/4.5 Mcg Inhaler (SP)] 2 puff INHALATION BID 30 Days #1 inhaler 12/12/17 Glucerna Shake 120 ml PO TIDCM #120 liquid 12/12/17 Guaifenesin [Mucinex] 1,200 mg PO BID #20 tablet 12/12/17 Prednisone [Deltasone] 40 mg PO DAILY #5 tablet 12/12/17 Sodium Chloride 0.65% [[place] Nasal [place]] 2 spray NASAL TID PRN PRN #1 spray.btl 12/12/17 The following prescriptions were given: Aspirin E.C. [Ecotrin] 81 mg PO DAILY@0800 #30 tablet Prednisone [Deltasone] 40 mg PO DAILY #5 tablet Sodium Chloride 0.65% [[place] Nasal [place]] 2 spray NASAL TID PRN PRN #1 spray.btl PRN Reason: NASAL DRYNESS Budesonide/Formoterol 160/4.5 [Symbicort 160/4.5 Mcg Inhaler (SP)] 2 puff INHALATION BID 30 Days #1 inhaler Guaifenesin [Mucinex] 1,200 mg PO BID #20 tablet Glucerna Shake 120 ml PO TIDCM #120 liquid Primary Care Physician: Carlos Ross Chi, MD [Primary Care Provider] - Please follow up with your Primary Care Physician in: 1 WEEK Test Results: Test results from this visit will be discussed in further detail at your follow-up appointment, if applicable. Please Follow Up With: Madan Wallace DO When: Please keep appt next week Proposed Discharge Date: 12/12/17
--- NOTE | 2017-12-12 08:50 | DCINST_ITS ---
- Discharge Diagnoses Current Active Problems: Current Active and Chronic Problems (Last Updated 06/30/17 @ 17:00 by Renetta Almodovar) COPD exacerbation (Acute) Obesity (BMI 30.0-34.9) (Chronic) You will use the following diet at home:: Cardiac Your food should be the consistency of: Regular Your liquids should be the consistency of: Regular/Thin Discharge Activity: Return to Normal Activity Call your doctor if you observe: Fever of 101 or Higher, Coldness, Increased Pain, Shortness of breath, Dizziness, Fainting spells, Chest pain, Increased palpitations (irregular heartbeat) Instructions: COPD: Using Inhalers, Diagnosis of COPD, Discharge Instructions: COPD, Treatment for COPD, What is COPD? Allergies/Adverse Reactions: Allergies acetaminophen [From Vicodin] Allergy (Verified 12/10/17 17:37) Hives hydrocodone bitartrate [From Vicodin] Allergy (Verified 12/10/17 17:37) Hives Penicillins Allergy (Verified 12/10/17 17:37) Anaphylaxis Medications to take at Discharge Digoxin [Lanoxin] 250 mcg PO DAILY #30 tab 04/29/14 Furosemide [Lasix] 20 mg PO DAILY #30 tab 04/29/14 Losartan Potassium [Cozaar] 50 mg PO DAILY 04/16/15 Oxygen, Home [Home Oxygen] 2 lpm NASAL DAILY PRN 04/16/15 Spironolactone [Aldactone] 25 mg PO DAILY 04/16/15 albuterol sulfate HFA 90 mcg/actuation aerosol inhaler 2 puff INHALATION Q4H PRN 06/30/17 atorvastatin 40 mg tablet 40 mg PO QDAY 06/30/17 carvedilol 12.5 mg tablet 12.5 mg PO BID 06/30/17 fluticasone 250 mcg-salmeterol 50 mcg/dose blistr powdr for inhalation 1 inh INHALATION Q12H 06/30/17 sertraline 100 mg tablet 100 mg PO QDAY 06/30/17 Albuterol Aerosols [Ventolin Aerosols] 2.5 mg INHALATION Q4HWA.RT 12/10/17 Diclofenac [Voltaren] 50 mg PO BIDCM 12/10/17 Levothyroxine [Synthroid] 25 mcg PO DAILY 12/10/17 Paroxetine HCl [Paxil] 40 mg PO DAILY 12/10/17 Tamsulosin HCl [Flomax] 0.4 mg PO QHS 12/10/17 Acetaminophen [Tylenol Tablet] 650 mg PO Q6H PRN PRN tablet 12/12/17 Aspirin E.C. [Ecotrin] 81 mg PO DAILY@0800 #30 tablet 12/12/17 Budesonide/Formoterol 160/4.5 [Symbicort 160/4.5 Mcg Inhaler (SP)] 2 puff INHALATION BID 30 Days #1 inhaler 12/12/17 Glucerna Shake 120 ml PO TIDCM #120 liquid 12/12/17 Guaifenesin [Mucinex] 1,200 mg PO BID #20 tablet 12/12/17 Prednisone [Deltasone] 40 mg PO DAILY #5 tablet 12/12/17 Sodium Chloride 0.65% [[place] Nasal [place]] 2 spray NASAL TID PRN PRN #1 spray.btl 12/12/17 The following prescriptions were given: Aspirin E.C. [Ecotrin] 81 mg PO DAILY@0800 #30 tablet Prednisone [Deltasone] 40 mg PO DAILY #5 tablet Sodium Chloride 0.65% [[place] Nasal [place]] 2 spray NASAL TID PRN PRN #1 spray.btl PRN Reason: NASAL DRYNESS Budesonide/Formoterol 160/4.5 [Symbicort 160/4.5 Mcg Inhaler (SP)] 2 puff INHA LATION BID 30 Days #1 inhaler Guaifenesin [Mucinex] 1,200 mg PO BID #20 tablet Glucerna Shake 120 ml PO TIDCM #120 liquid Primary Care Physician: Carlos Ross Chi, MD [Primary Care Provider] - Please follow up with your Primary Care Physician in: 1 WEEK Test Results: Test results from this visit will be discussed in further detail at your follow- up appointment, if applicable. Please Follow Up With: Madan Wallace, When: Please keep appt next week Proposed Discharge Date: 12/12/17
--- NOTE | 2017-12-12 08:51 | PCM.DC.SUM ---
Discharge Date and Diagnosis - Problem List Patient Problems: Active and Suspected Problems (Last Updated 06/30/17 @ 17:00 by Renetta Almodovar) COPD exacerbation (Acute) Date of Admission: 12/10/17 Date of Discharge: 12/12/17 - Primary Discharge Diagnosis Active and Suspected Problems (Last Updated 06/30/17 @ 17:00 by Renetta Almodovar) COPD exacerbation (Acute) - Secondary Discharge Diagnosis Chronic Problems (Last Updated 06/30/17 @ 17:00 by Renetta Almodovar) Obesity (BMI 30.0-34.9) (Chronic) RBBB (right bundle branch block) (Chronic) Hyperlipidemia (Chronic) Cardiomyopathy, dilated (Chronic) Hypertension (Chronic) Nonrheumatic mitral valve regurgitation (Chronic) Chronic systolic congestive heart failure (Chronic) Biventricular automatic implantable cardioverter defibrillator in situ (Chronic ~01/05/15) 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 Shortness of breath TECHNIQUE: 1 view COMPARISON: December 10, 2017 FINDINGS: A dual-chamber cardiac pacemaker is in place. Mild cardiomegaly.. Normal visualized thoracic spine. Normal visualized ribs, clavicles, and shoulders. There is no demonstrated abnormality of the visualized soft tissue structures of the upper abdomen. RAD/Chest 1 View (Portable) IMPRESSION: Mild cardiomegaly. No acute findings in the lungs Electronically Signed: Maximo Cortes MD at 7:12 EDT Tel , Service support , CC: Sarthak Lundy MD; Carlos Ross MD ~ [employer]: Signed Dr Wallace Operations: None Procedures: None Summary of Care Provided: Patient is a 57-year-old white female with known history of chronic systolic heart failure status post AICD/pacemaker, dilated cardiomyopathy, depression, anxiety, hypertension, hyperlipidemia, obesity, chronic hypoxic respiratory failure with COPD usually on 2.5 L of nasal cannula, tobacco abuse in the past, who presented to the hospital for this cough congestion and what looks to be acute exacerbation of COPD. Patient's respiratory panel was negative, sputum cultures does show normal ronda. Discussed case with Dr. Wallace, patient will see him next week, will give patient prednisone 40 mg p.o. daily for 5 days. Have reinitiated patient's Symbicort, will monitor?case management to see if she needs any home health. The patient is chronically on 3 L nasal cannula. Will get PFTs as an outpatient. Patient might need also a sleep study? Unclear recommend outpatient follow-up. Patient currently has no new complaints feels back to baseline. Acute on chronic COPD exacerbation w/ Hypoxia on Chronic Respiratory Failure: Sputum cultures so far negative viral panel is negative. Continue home nebulizers and inhalers, prednisone for 5 days follow-up with Dr. Wallace Chronic Systolic CHF, Dilated Cardiomyopathy: s/p AICD/pacemaker placement. Following w/ Dr. Yeboah. Maintain on home regimen asa, spironolactone, losartan, Lasix, digoxin, Coreg, statin. Hypertension: Continue home regimen including Aldactone, losartan, Lasix, Coreg, Hyperlipidemia: Continue home statin regimen. Obesity: Weight loss and lifestyle changes encouraged though unable to do secondary to shortness of breath at this time. Former Tobacco use: Encourage continued cessation. Anxiety and Depression: Maintain on home regimen CODE STATUS full patient has a living well if she is deemed unrecoverable Medications reviewed with the patient. Risks, benefits, alternatives, side effects, potential complications and dangers of medications discussed. Patient wishes to utilize these agents despite risk. A signed medical consent/advisement form regarding narcotic medications and a side medication agreement are located in the patient's chart. Chart is dictated with die cut operator software. Errors may occur in dictation that may change providers meaning. This note was generated with [employer] dictation software. It may contain incorrect words, spelling, and punctuation that were not noted in checking the note before signing. Patient Problems: Active and Suspected Problems (Last Updated 06/30/17 @ 17:00 by Renetta Almodovar) COPD exacerbation (Acute) Subjective: Patient has no new complaints no nausea vomiting no chest pain. Patient feels like breathing has not gone back to baseline. Wishes to go home - Physical Exam General: Alert, Oriented x3, Cooperative HEENT: Atraumatic, PERRLA, EOMI Oral: Moist Mucosa, No Gingival or Mucosal Lesions/ Ulcerations Neck: Supple, No JVD, Trachea Midline Lungs: No rales, Diminished - Long expiratory phase, Rhonchi Cardiovascular: Regular rate, Normal S1, Normal S2, Murmur - Systolic Abdomen: Bowel Sounds Present - Morbidly obese, Soft, Non Tender, Non-Distended Extremities: No clubbing, No cyanosis, Edema - sLight Skin: No rashes, No breakdown Musculoskeletal: No Tenderness to Palpation of Joints or Extremities, No Muscle Wasting Lymphatic: No Cervical, Supraclavicular, or Inguinal Adenopathy Neurological: Cranial nerves II-XII grossly intact, Neuro grossly intact Psych/Mental Status: Normal Affect, Appropriate, Alert and oriented to time, place, person, mood and affect Vital Signs Temp Pulse Resp BP Pulse Ox 97.7 F L 84 18 127/60 H 90 12/12/17 04:00 12/12/17 07:05 12/12/17 07:05 12/12/17 04:00 12/12/17 07:05 Oxygen Flow Rate (L/min) 3 Oxygen Delivery Method Nasal Cannula Weight: 78.6 kg Body Mass Index (BMI) 33.8 Intake and Output for Last 24 Hours 12/10/17 12/11/17 12/12/17 23:59 23:59 23:59 Intake Total 500 / 500 500 / 500 500 / 500 Balance 500 / 500 500 / 500 500 / 500 Microbiology Past 72 Hours 12/11/17 00:25 Gram Stain - Final Sputum, Expectorated/Coughed Respiratory Culture - Preliminary Appears to be normal respiratory ronda. Further studies to follow. 12/10/17 23:25 Respiratory Panel (PCR) - Final Mucosa - Nose Laboratory Tests Past 24 Hrs 12/12/17 12/12/17 06:56 06:56 WBC 13.3 H RBC 4.30 Hgb 11.4 L Hct 38.5 MCV 89.5 MCH 26.5 L MCHC 29.6 L RDW 12.8 RDW Differential 41.1 Plt Count 353 MPV 8.6 Immature Gran % (Auto) 0.200 Neut % (Auto) 85.1 H Lymph % (Auto) 10.8 L [place] % (Auto) 3.8 Eos % (Auto) 0.0 Baso % (Auto) 0.1 Absolute Neuts (auto) 11.3 H Absolute Lymphs (auto) 1.43 Total Counted Not Reportable Sodium 138 Potassium 4.8 Chloride 97 L Carbon Dioxide 38.0 H Anion Gap 3 L BUN 18 Creatinine 0.58 Estim Creat Clear Calc 75.02 Est GFR (MDRD) Af Amer 136 Est GFR (MDRD) Non-Af 113 BUN/Creatinine Ratio 30.9 H Glucose 267 H Calcium 9.0 Phosphorus 3.4 Magnesium 2.6 Total Bilirubin 0.20 AST 9 L ALT 16 Alkaline Phosphatase 95 Total Protein 6.9 Albumin 2.6 L Globulin 4.3 H Albumin/Globulin Ratio 0.6 L Discharge Diet: No Restrictions - Cardiac 1500 fluid restriction Discharge Activity: Return to Normal Activity Call your doctor if you observe: Fever of 101 or Higher, Coldness, Increased Pain, Shortness of breath, Dizziness, Fainting spells, Chest pain, Increased palpitations (irregular heartbeat) Home Medications: Medications to take at Discharge Digoxin [Lanoxin] 250 mcg PO DAILY #30 tab 04/29/14 Furosemide [Lasix] 20 mg PO DAILY #30 tab 04/29/14 Losartan Potassium [Cozaar] 50 mg PO DAILY 04/16/15 Oxygen, Home [Home Oxygen] 2 lpm NASAL DAILY PRN 04/16/15 Spironolactone [Aldactone] 25 mg PO DAILY 04/16/15 albuterol sulfate HFA 90 mcg/actuation aerosol inhaler 2 puff INHALATION Q4H PRN 06/30/17 atorvastatin 40 mg tablet 40 mg PO QDAY 06/30/17 carvedilol 12.5 mg tablet 12.5 mg PO BID 06/30/17 fluticasone 250 mcg-salmeterol 50 mcg/dose blistr powdr for inhalation 1 inh INHALATION Q12H 06/30/17 sertraline 100 mg tablet 100 mg PO QDAY 06/30/17 Albuterol Aerosols [Ventolin Aerosols] 2.5 mg INHALATION Q4HWA.RT 12/10/17 Diclofenac [Voltaren] 50 mg PO BIDCM 12/10/17 Levothyroxine [Synthroid] 25 mcg PO DAILY 12/10/17 Paroxetine HCl [Paxil] 40 mg PO DAILY 12/10/17 Tamsulosin HCl [Flomax] 0.4 mg PO QHS 12/10/17 Acetaminophen [Tylenol Tablet] 650 mg PO Q6H PRN PRN tablet 12/12/17 Aspirin E.C. [Ecotrin] 81 mg PO DAILY@0800 #30 tablet 12/12/17 Budesonide/Formoterol 160/4.5 [Symbicort 160/4.5 Mcg Inhaler (SP)] 2 puff INHALATION BID 30 Days #1 inhaler 12/12/17 Glucerna Shake 120 ml PO TIDCM #120 liquid 12/12/17 Guaifenesin [Mucinex] 1,200 mg PO BID #20 tablet 12/12/17 Prednisone [Deltasone] 40 mg PO DAILY #5 tablet 12/12/17 Sodium Chloride 0.65% [[place] Nasal [place]] 2 spray NASAL TID PRN PRN #1 spray.btl 12/12/17 Following Prescrptions Were Given to Patient: Aspirin E.C. [Ecotrin] 81 mg PO DAILY@0800 #30 tablet Prednisone [Deltasone] 40 mg PO DAILY #5 tablet Sodium Chloride 0.65% [[place] Nasal [place]] 2 spray NASAL TID PRN PRN #1 spray.btl PRN Reason: NASAL DRYNESS Budesonide/Formoterol 160/4.5 [Symbicort 160/4.5 Mcg Inhaler (SP)] 2 puff INHALATION BID 30 Days #1 inhaler Guaifenesin [Mucinex] 1,200 mg PO BID #20 tablet Glucerna Shake 120 ml PO TIDCM #120 liquid Primary Care Physician: Carlos Ross Chi, MD [Primary Care Provider] - Please follow up with your Primary Care Physician in: 1 WEEK Please Follow Up With: Madan Wallace, DO When: Please keep appt next week Patient Instructions: What is COPD?, Discharge Instructions: COPD, COPD: Using Inhalers, Diagnosis of COPD, Treatment for COPD Disposition: Home with Home Health - If requires Patient Condition:: Good Medical Necessity - Tobacco Use Smoking Status: Former smoker - Quit 2014, smoked 1-1.5 ppd prior to this, cigarette tobacco. Tobacco Use: Non-smoker Meaningful Use Info Meaningful Use Diagnoses (Choose all that apply): CHF - CHF MARGARET/ARB ordered at discharge?: Yes Documented LVEF (%): 40 - Echocardiogram from 2016 Code Visit Inpatient E&M: 68068 Disch Hosp
--- NOTE | 2017-12-12 08:56 | DS.PCM_ITS ---
Discharge Date and Diagnosis - Problem List Patient Problems: Active and Suspected Problems (Last Updated 06/30/17 @ 17:00 by Renetta Almodovar) COPD exacerbation (Acute) Date of Admission: 12/10/17 Date of Discharge: 12/12/17 - Primary Discharge Diagnosis Active and Suspected Problems (Last Updated 06/30/17 @ 17:00 by Renetta Almodovar) COPD exacerbation (Acute) - Secondary Discharge Diagnosis Chronic Problems (Last Updated 06/30/17 @ 17:00 by Renetta Almodovar) Obesity (BMI 30.0-34.9) (Chronic) RBBB (right bundle branch block) (Chronic) Hyperlipidemia (Chronic) Cardiomyopathy, dilated (Chronic) Hypertension (Chronic) Nonrheumatic mitral valve regurgitation (Chronic) Chronic systolic congestive heart failure (Chronic) Biventricular automatic implantable cardioverter defibrillator in situ (Chronic ~01/05/15) Atherosclerotic heart disease of [place] coronary artery without angina pectoris (Chronic) Ventricular tachycardia (Chronic) Hospital Course and Treatment Imaging Results: 12/12/17 05:55 Chest 1 View (Portable) [RAD] AM (NON MEDS) MR#: [id number] Acct: [id number] Name: JACOB BENSON Rep #: [id number] : [id number] F 57 From: Maximo Cortes MD PCP: Cody SPENCER,Net Transmit & Receive Status: ADM IN Study: Chest 1 View (Portable) Date of Exam: 12/12/17 Exam# [id number] Ordering Dr: Sarthak Lundy MD STUDY: X-RAY CHEST REASON FOR EXAM: Female, 57 years old. Shortness of breath TECHNIQUE: 1 view COMPARISON: December 10, 2017 FINDINGS: A dual-chamber cardiac pacemaker is in place. Mild cardiomegaly.. Normal visualized thoracic spine. Normal visualized ribs, clavicles, and shoulders. There is no demonstrated abnormality of the visualized soft tissue structures of the upper abdomen. RAD/Chest 1 View (Portable) IMPRESSION: Mild cardiomegaly. No acute findings in the lungs Electronically Signed: Maximo Cortes MD at 7:12 EDT Tel , Service support , CC: Sarthak Lundy MD; Carlos Ross MD ~ [place]: Signed Dr Wallace Operations: None Procedures: None Summary of Care Provided: Patient is a 57-year-old white female with known history of chronic systolic heart failure status post AICD/pacemaker, dilated cardiomyopathy, depression, anxiety, hypertension, hyperlipidemia, obesity, chronic hypoxic respiratory failure with COPD usually on 2.5 L of nasal cannula, tobacco abuse in the past, who presented to the hospital for this cough congestion and what looks to be acute exacerbation of COPD. Patient's respiratory panel was negative, sputum cultures does show normal ronda. Discussed case with Dr. Wallace, patient will see him next week, will give patient prednisone 40 mg p.o. daily for 5 days. Have reinitiated patient's Symbicort, will monitor?case management to see if she needs any home health. The patient is chronically on 3 L nasal cannula. Will get PFTs as an outpatient. Patient might need also a sleep study? Unclear recommend outpatient follow-up. Patient currently has no new complaints feels back to baseline. Acute on chronic COPD exacerbation w/ Hypoxia on Chronic Respiratory Failure: Sputum cultures so far negative viral panel is negative. Continue home nebulizers and inhalers, prednisone for 5 days follow-up with Dr. Wallace Chronic Systolic CHF, Dilated Cardiomyopathy: s/p AICD/pacemaker placement. Following w/ Dr. Yeboah. Maintain on home regimen asa, spironolactone, losartan, Lasix, digoxin, Coreg, statin. Hypertension: Continue home regimen including Aldactone, losartan, Lasix, Coreg, Hyperlipidemia: Continue home statin regimen. Obesity: Weight loss and lifestyle changes encouraged though unable to do secondary to shortness of breath at this time. Former Tobacco use: Encourage continued cessation. Anxiety and Depression: Maintain on home regimen CODE STATUS full patient has a living well if she is deemed unrecoverable Medications reviewed with the patient. Risks, benefits, alternatives, side effects, potential complications and dangers of medications discussed. Patient wishes to utilize these agents despite risk. A signed medical consent/advisement form regarding narcotic medications and a side medication agreement are located in the patient's chart. Chart is dictated with event representative software. Errors may occur in dictation that may change providers meaning. This note was generated with [employer] dictation software. It may contain incorrect words, spelling, and punctuation that were not noted in checking the note before signing. Patient Problems: Active and Suspected Problems (Last Updated 06/30/17 @ 17:00 by Renetta Almodovar) COPD exacerbation (Acute) Subjective: Patient has no new complaints no nausea vomiting no chest pain. Patient feels like breathing has not gone back to baseline. Wishes to go home - Physical Exam General: Alert, Oriented x3, Cooperative HEENT: Atraumatic, PERRLA, EOMI Oral: Moist Mucosa, No Gingival or Mucosal Lesions/ Ulcerations Neck: Supple, No JVD, Trachea Midline Lungs: No rales, Diminished - Long expiratory phase, Rhonchi Cardiovascular: Regular rate, Normal S1, Normal S2, Murmur - Systolic Abdomen: Bowel Sounds Present - Morbidly obese, Soft, Non Tender, Non-Distended Extremities: No clubbing, No cyanosis, Edema - sLight Skin: No rashes, No breakdown Musculoskeletal: No Tenderness to Palpation of Joints or Extremities, No Muscle Wasting Lymphatic: No Cervical, Supraclavicular, or Inguinal Adenopathy Neurological: Cranial nerves II-XII grossly intact, Neuro grossly intact Psych/Mental Status: Normal Affect, Appropriate, Alert and oriented to time, p lace, person, mood and affect Vital Signs Temp Pulse Resp BP Pulse Ox 97.7 F L 84 18 127/60 H 90 12/12/17 04:00 12/12/17 07:05 12/12/17 07:05 12/12/17 04:00 12/12/17 07:05 Oxygen Flow Rate (L/min) 3 Oxygen Delivery Method Nasal Cannula Weight: 78.6 kg Body Mass Index (BMI) 33.8 Intake and Output for Last 24 Hours 12/10/17 12/11/17 12/12/17 23:59 23:59 23:59 Intake Total 500 / 500 500 / 500 500 / 500 Balance 500 / 500 500 / 500 500 / 500 Microbiology Past 72 Hours 12/11/17 00:25 Gram Stain - Final Sputum, Expectorated/Coughed Respiratory Culture - Preliminary Appears to be normal respiratory ronda. Further studies to follow. 12/10/17 23:25 Respiratory Panel (PCR) - Final Mucosa - Nose Laboratory Tests Past 24 Hrs 12/12/17 12/12/17 06:56 06:56 WBC 13.3 H RBC 4.30 Hgb 11.4 L Hct 38.5 MCV 89.5 MCH 26.5 L MCHC 29.6 L RDW 12.8 RDW Differential 41.1 Plt Count 353 MPV 8.6 Immature Gran % (Auto) 0.200 Neut % (Auto) 85.1 H Lymph % (Auto) 10.8 L Terry % (Auto) 3.8 Eos % (Auto) 0.0 Baso % (Auto) 0.1 Absolute Neuts (auto) 11.3 H Absolute Lymphs (auto) 1.43 Total Counted Not Reportable Sodium 138 Potassium 4.8 Chloride 97 L Carbon Dioxide 38.0 H Anion Gap 3 L BUN 18 Creatinine 0.58 Estim Creat Clear Calc 75.02 Est GFR (MDRD) Af Amer 136 Est GFR (MDRD) Non-Af 113 BUN/Creatinine Ratio 30.9 H Glucose 267 H Calcium 9.0 Phosphorus 3.4 Magnesium 2.6 Total Bilirubin 0.20 AST 9 L ALT 16 Alkaline Phosphatase 95 Total Protein 6.9 Albumin 2.6 L Globulin 4.3 H Albumin/Globulin Ratio 0.6 L Discharge Diet: No Restrictions - Cardiac 1500 fluid restriction Discharge Activity: Return to Normal Activity Call your doctor if you observe: Fever of 101 or Higher, Coldness, Increased Pain, Shortness of breath, Dizziness, Fainting spells, Chest pain, Increased palpitations (irregular heartbeat) Home Medications: Medications to take at Discharge Digoxin [Lanoxin] 250 mcg PO DAILY #30 tab 04/29/14 Furosemide [Lasix] 20 mg PO DAILY #30 tab 04/29/14 Losartan Potassium [Cozaar] 50 mg PO DAILY 04/16/15 Oxygen, Home [Home Oxygen] 2 lpm NASAL DAILY PRN 04/16/15 Spironolactone [Aldactone] 25 mg PO DAILY 04/16/15 albuterol sulfate HFA 90 mcg/actuation aerosol inhaler 2 puff INHALATION Q4H PRN 06/30/17 atorvastatin 40 mg tablet 40 mg PO QDAY 06/30/17 carvedilol 12.5 mg tablet 12.5 mg PO BID 06/30/17 fluticasone 250 mcg-salmeterol 50 mcg/dose blistr powdr for inhalation 1 inh INHALATION Q12H 06/30/17 sertraline 100 mg tablet 100 mg PO QDAY 06/30/17 Albuterol Aerosols [Ventolin Aerosols] 2.5 mg INHALATION Q4HWA.RT 12/10/17 Diclofenac [Voltaren] 50 mg PO BIDCM 12/10/17 Levothyroxine [Synthroid] 25 mcg PO DAILY 12/10/17 Paroxetine HCl [Paxil] 40 mg PO DAILY 12/10/17 Tamsulosin HCl [Flomax] 0.4 mg PO QHS 12/10/17 Acetaminophen [Tylenol Tablet] 650 mg PO Q6H PRN PRN tablet 12/12/17 Aspirin E.C. [Ecotrin] 81 mg PO DAILY@0800 #30 tablet 12/12/17 Budesonide/Formoterol 160/4.5 [Symbicort 160/4.5 Mcg Inhaler (SP)] 2 puff INHALATION BID 30 Days #1 inhaler 12/12/17 Glucerna Shake 120 ml PO TIDCM #120 liquid 12/12/17 Guaifenesin [Mucinex] 1,200 mg PO BID #20 tablet 12/12/17 Prednisone [Deltasone] 40 mg PO DAILY #5 tablet 12/12/17 Sodium Chloride 0.65% [[place] Nasal [place]] 2 spray NASAL TID PRN PRN #1 spray.btl 12/12/17 Following Prescrptions Were Given to Patient: Aspirin E.C. [Ecotrin] 81 mg PO DAILY@0800 #30 tablet Prednisone [Deltasone] 40 mg PO DAILY #5 tablet Sodium Chloride 0.65% [[place] Nasal [place]] 2 spray NASAL TID PRN PRN #1 spray.btl PRN Reason: NASAL DRYNESS Budesonide/Formoterol 160/4.5 [Symbicort 160/4.5 Mcg Inhaler (SP)] 2 puff INHALATION BID 30 Days #1 inhaler Guaifenesin [Mucinex] 1,200 mg PO BID #20 tablet Glucerna Shake 120 ml PO TIDCM #120 liquid Primary Care Physician: Carlos Ross Chi, MD [Primary Care Provider] - Please follow up with your Primary Care Physician in: 1 WEEK Please Follow Up With: Madan Wallace, DO When: Please keep appt next week Patient Instructions: What is COPD?, Discharge Instructions: COPD, COPD: Using Inhalers, Diagnosis of COPD, Treatment for COPD Disposition: Home with Home Health - If requires Patient Condition:: Good Medical Necessity - Tobacco Use Smoking Status: Former smoker - Quit 2014, smoked 1-1.5 ppd prior to this, cigarette tobacco. Tobacco Use: Non-smoker Meaningful Use Info Meaningful Use Diagnoses (Choose all that apply): CHF - CHF MARGARET/ARB ordered at discharge?: Yes Documented LVEF (%): 40 - Echocardiogram from 2016 Code Visit Inpatient E&M: 38510 Disch Hosp
[2017-12-12] MEDS: Glucerna Shake 120 ML LIQUID PO ×2 (09:00→12:21)
[2017-12-12] MEDS: Spironolactone 25 MG Tablet PO (09:01)
[2017-12-12] MEDS: Aspirin E.C. 81 MG Tablet PO (09:01)
[2017-12-12] MEDS: Oxymetazoline 0.05% 1 SPRAY SPRAY.BTL 2 SPRAY NASAL (09:01)
[2017-12-12] MEDS: Losartan Potassium 50 MG Tablet PO (09:02)
[2017-12-12] MEDS: Carvedilol 12.5 MG Tablet PO (09:02)
[2017-12-12] MEDS: Enoxaparin 40 MG/0.4 ML Syringe SC (09:03)
[2017-12-12] MEDS: guaiFENesin 1,200 MG Tablet 1200 MG PO (09:03)
[2017-12-12] MEDS: Furosemide 20 MG Tablet PO (09:03)
[2017-12-12] MEDS: Digoxin 250 MCG Tablet PO (09:03)
[2017-12-12] MEDS: buPROPion (XL) 300 MG TABLET.XL PO (09:03)
[2017-12-12] MEDS: Sertraline 100 MG Tablet PO (09:04)
--- NOTE | 2017-12-12 13:10 | CASEMGMT ---
RN CM Note. Updated home oxygen script faxed to [facility]. Call to answering service to notify of oxygen setup-blocking machine operator second states she will contact delivery driver/supervisor. Pt states she has concentrator at home, needs portable tanks- noted on fax cover sheet. [facility] nurse updated. Lakesha GAMBINON RN ACM
--- NOTE | 2017-12-15 16:38 | CASEMGMT ---
ASTRID OWEN Discharge Follow-up Phone Call: KARLA: 11 Strata: 3 Call Date: 12/15/17 Discharge Date: 12/12/17 Time of Call: 1635 Duration: 1 min Admitting Diagnosis: COPD exacerbation ASTRID OWEN attempted to complete follow-up phone call after recent hospitalization. No answer, unable to leave message due to mailbox being full. Patient setup with [facility] and CCN prior to discharge.
== END 2017-12-12 14:30 | disposition home health service (06) | DRG 191 ==
LOC: ED 18:32 → MS3 20:24
PROVIDERS: Admitting Provider Family Medicine; Emergency Provider Emergency Medicine; Family Provider Family Medicine Geriatric Medicine; PCP Family Medicine Geriatric Medicine; Visit Provider Internal Medicine
DX: J44.1 Chronic obstructive pulmonary disease with (acute) exacerbation (principal); I42.0 Dilated cardiomyopathy; I50.22 Chronic systolic (congestive) heart failure; J96.11 Chronic respiratory failure with hypoxia; Z87.891 Personal history of nicotine dependence; E78.5 Hyperlipidemia, unspecified; E66.9 Obesity, unspecified; Z68.33 Body mass index [BMI] 33.0-33.9, adult; I11.0 Hypertensive heart disease with heart failure; Z95.810 Presence of automatic (implantable) cardiac defibrillator; I45.10 Unspecified right bundle-branch block; I34.0 Nonrheumatic mitral (valve) insufficiency; I25.10 Atherosclerotic heart disease of native coronary artery without angina pectoris; Z99.81 Dependence on supplemental oxygen; F32.9 Major depressive disorder, single episode, unspecified; F41.9 Anxiety disorder, unspecified
CPT/HCPCS: 36415; 71045; 71046; 80048; 80053; 83735; 83880; 84100; 84484; 85025; 87070; 87077; 87205; 87633; 93005; 94640; 94667; 94668; 97802; 99285; A4216

== ENCOUNTER → 2018-09-23 13:36 | Outpatient (CLI) | payer MEDICARE, MEDICAID, SELFPAY ==
[2017-12-17 07:43] VITALS: BMI 33.5
--- NOTE | 2018-09-23 14:55 | RAD_ITS ---
STUDY: X-RAY - PELVIS AND RIGHT HIP REASON FOR EXAM: Long-standing right hip pain, no specific injury. TECHNIQUE: 2 views of the pelvis and hip. COMPARISON: Radiographs 09/20/2015. FINDINGS: There is osteopenia. There are small pelvic phleboliths. There is vascular calcification. Normal bilateral iliac wings, sacroiliac joints and visualized sacrum. Normal bilateral superior and inferior pubic rami. Normal pubic symphysis. Normal bilateral ischial tuberosities. There is advanced right hip arthrosis with chondral loss and subchondral cystic change, increased since the prior study. RAD/HIP, UNI W/ Pelvis 2-3 Views IMPRESSION: Advanced right hip arthrosis. Electronically Signed: Martir Coffman MD at 15:21 EDT Tel , Service support ,
[2018-09-23 17:00] LABS: Absolute Lymphocyte Count 1.94 X10^3/uL (0.83-4.51); Absolute Neutrophil Count 5.2 X10^3/uL (2.0-7.7); Basophil# 0.02 X10^3/uL; Basophil% 0.3 % (0-1); Eosinophil# 0.06 X10^3/uL; Eosinophils% 0.8 % (0-5); Hematocrit 39.1 % (37-47); Lymphocyte # 1.94 X10^3/ul (4.0); Lymphocyte % 25.3 % (19-41); Mean Corp Hgb Conc 30.7 g/dL (32-36); Mean Corpuscular Hgb 28.7 pg (27.0-32.0); Mean Corpuscular Volume 93.5 fL (81-99); Mean Platelet Vol. 9.1 fl (6.2-12.0); Monocyte# 0.43 X10^3/uL; Monocyte% 5.6 % (0-10); NRBC Flagged by Analyzer 0 % (0-5); Neutrophil # 5.17 X10^3/uL (2.7-7.7); Neutrophil % 67.5 % (47-70); Platelet Count 254 K/mm3 (150-450); RBC Distribution Width CV 13.1 % (11.6-14.6); Red Blood Count 4.18 M/mm3 (4.2-5.4); White Blood Count 7.7 K/mm3 (4.4-11.0)
[2018-09-23 17:51] LABS: Vitamin D,25 Hydroxy 16.2 ng/mL (29.95-100.01)
[2018-09-23 17:59] LABS: AST(SGOT) 14 U/L (15-37); Alanine Aminotransfer ALT/SGPT 18 U/L (13-56); Albumin, Serum 3.3 g/dL (3.2-5.0); Alkaline Phosphatase 79 U/L (45-117); Anion Gap 7 (5-15); BUN 16 mg/dL (7-18); BUN/Creat Ratio 23.7 RATIO (10-20); Calcium,Total 8.6 mg/dL (8.5-10.1); Chloride 102 mmol/L (98-107); Creatinine, Serum 0.67 mg/dL (0.55-1.02); EST Glomerular Filtration Rate 95 mL/min (>60); Est Glom Filt Rate - Afr Amer 115 mL/min (>60); Globulin 3.2 g/dL (2.2-4.2); Glucose 161 mg/dL (74-106); Protein, Total 6.5 g/dL (6.4-8.2); Sodium Level 142 mmol/L (136-145); Thyroid Stim Hormone (TSH) 1.38 uIU/mL (0.358-3.74)
== END ==
LOC: POLAB3 13:37 → RAD 14:49
PROVIDERS: Family Provider Family Medicine Geriatric Medicine; PCP Family Medicine Geriatric Medicine; Referring Provider Family Medicine Geriatric Medicine; Visit Provider Family Medicine Geriatric Medicine
DX: E55.9 Vitamin D deficiency, unspecified (principal); I10 Essential (primary) hypertension
CPT/HCPCS: 36415; 73502; 80053; 82306; 84443; 85025

== ENCOUNTER 2019-01-31 20:21 | Inpatient (IN) | payer MEDICARE, MEDICAID, SELFPAY ==
[2018-09-23 15:37] VITALS: BMI 32.0
[2019-01-31 20:23] VITALS: BP 133/73; PULSE 101; RESP 18; TEMP 37.5; O2SAT 97; BMI 31.1
--- NOTE | 2019-01-31 20:42 | EKG12_ITS ---
Test Reason : Blood Pressure : / mmHG Vent. Rate : 096 BPM Atrial Rate : 096 BPM P-R Int : 126 ms QRS Dur : 110 ms QT Int : 370 ms P-R-T Axes : 070 -70 031 degrees QTc Int : 467 ms Atrial-sensed ventricular-paced rhythm Biventricular pacemaker detected Abnormal ECG Confirmed by SONA SPENCER, JACE ([id number]), web content editor CARLOS CASTELLON ([id number]) on 02/02/2019 12:53:57 PM Referred By: RENETTA Confirmed By:JACE MAGALLANES MD
[2019-01-31] MEDS: Ipratropium/Albuterol Sulfate 3 ML AMPUL.NEB INHALATION (20:57)
[2019-01-31] MEDS: Ondansetron 4 MG/2 ML Vial IV (21:06)
[2019-01-31] MEDS: MethylPREDNISolone 125 MG/2 ML Vial IV (21:06)
[2019-01-31] MEDS: Morphine 4 MG/ML Syringe IV ×2 (21:07→22:56)
[2019-01-31 21:33] VITALS: BP 118/66; PULSE 78; RESP 21; O2SAT 93
[2019-01-31 21:34] LABS: Absolute Lymphocyte Count 2.26 X10^3/uL (0.83-4.51); Absolute Neutrophil Count 1.9 X10^3/uL (2.0-7.7); Basophil# 0.01 X10^3/uL; Basophil% 0.2 % (0-1); Eosinophil# 0.04 X10^3/uL; Eosinophils% 0.8 % (0-5); Hematocrit 41.8 % (37-47); Hemoglobin 12.7 g/dL (12.0-15.0); Lymphocyte # 2.26 X10^3/ul (4.0); Lymphocyte % 47.1 % (19-41); Mean Corp Hgb Conc 30.4 g/dL (32-36); Mean Corpuscular Hgb 27.7 pg (27.0-32.0); Mean Corpuscular Volume 91.1 fL (81-99); Mean Platelet Vol. 9.2 fl (6.2-12.0); Monocyte# 0.62 X10^3/uL; Monocyte% 12.9 % (0-10); NRBC Flagged by Analyzer 0 % (0-5); Neutrophil # 1.86 X10^3/uL (2.7-7.7); Neutrophil % 38.8 % (47-70); POSITIVE MORPHOLOGY YES; Platelet Count 284 K/mm3 (150-450); RBC Distribution Width CV 14.9 % (11.6-14.6); RBC Distribution Width SD 49.8 fl (35.1-43.9); Red Blood Count 4.59 M/mm3 (4.2-5.4); White Blood Count 4.8 K/mm3 (4.4-11.0)
[2019-01-31 21:40] LABS: Differential Indicated SCAN CRITERIA MET
[2019-01-31 21:48] LABS: Bacteria 0 SEEN /hpf (None Seen); Mucous, Urine 0 SEEN /hpf (<or=2+)
--- NOTE | 2019-01-31 21:50 | RAD_ITS ---
STUDY: X-RAY CHEST REASON FOR EXAM: Female, 58 years old. PT REPORTS INCREASED SOB, WEAKNESS CAUSING DECREASED ABILITY TO AMBULATE AND NAUSEA WITH POOR PO INTAKE. SX WORSENING OVER THE PAST SEVERAL WEEKS. TECHNIQUE: PA and lateral views of the chest. COMPARISON: 12/12/2018 FINDINGS: Three lead cardiac conduction device is seen via the left subclavian vein with lead tips projecting over the right atrium and right ventricle, respectively, with left atrial lead projecting over the left atrium/posterior cardiac border. The lungs are clear and expanded. There is no demonstrated pleural abnormality. Normal size heart. Normal mediastinum and lisa. Normal visualized pulmonary arteries. There is atherosclerotic calcification of the aortic arch with tortuosity. There is demineralization of the osseous structures. Normal visualized ribs, clavicles, and shoulders. There is no demonstrated abnormality of the visualized soft tissue structures of the upper abdomen. RAD/Chest PA and Lateral IMPRESSION: 1. No acute cardiopulmonary process. Stable exam. Electronically Signed: Jason Man MD ([place]) at 22:09 EST , Service support ,
[2019-01-31 21:57] LABS: ALB/GLOB Ratio 0.7 RATIO (0.9-2.4); AST(SGOT) 1365 U/L (15-37); Alanine Aminotransfer ALT/SGPT 1914 U/L (13-56); Albumin, Serum 2.9 g/dL (3.2-5.0); Alkaline Phosphatase 757 U/L (45-117); Anion Gap 4 (5-15); BUN 9 mg/dL (7-18); BUN/Creat Ratio 13.8 RATIO (10-20); Calcium,Total 8.7 mg/dL (8.5-10.1); Chloride 94 mmol/L (98-107); Creatinine, Serum 0.65 mg/dL (0.55-1.02); EST Glomerular Filtration Rate 98 mL/min (>60); Est Glom Filt Rate - Afr Amer 119 mL/min (>60); Estimated Creatinine Clearance 66.11 ml/min; Globulin 4.1 g/dL (2.2-4.2); Glucose 182 mg/dL (74-106); Potassium 3.8 mmol/L (3.5-5.1); Sodium Level 138 mmol/L (136-145)
[2019-01-31 21:57] LABS: Color, Urine Yellow (Yellow); Glucose, Dipstick Normal (Normal); Ketone-Dipstick Negative (Negative); Leukocyte Esterase-Dipstick 25 /ul (Negative); Nitrite-Dipstick Negative (Negative); Occult Blood-Urine 10 /ul (Negative); Protein-Dipstick 15 mg/dl (Negative); Specific Gravity, Urine 1.015 (1.002-1.030); Urine Clarity Clear (Clear); Urine Urobilinogen 4 mg/dl (Normal)
[2019-01-31 22:00] LABS: Urine Bilirubin Dipstick 1 mg/dL (Negative)
[2019-01-31 22:01] LABS: Lactic Acid 0.7 mmol/L (0.4-1.9)
[2019-01-31 22:03] LABS: Red Blood Cells-Urine 0-5 SEEN /hpf (0-5); Squamous Epithelial Cells - UA 0-5 SEEN /hpf (5-10); White Blood Cells 0-5 SEEN /hpf (0-5)
[2019-01-31 22:04] LABS: Hyaline Cast 0-5 SEEN /lpf (0-5)
[2019-01-31 22:19] LABS: Differential Comment SCANNED; Platelet Estimate ADEQUATE (ADEQ); Stomatocyte 1+
[2019-01-31 22:24] VITALS: BP 119/59; PULSE 80; RESP 16; O2SAT 92
--- NOTE | 2019-01-31 22:33 | US_ITS ---
STUDY: ABDOMINAL ULTRASOUND - RIGHT UPPER QUADRANT REASON FOR VISIT: Female, 58 years old abnormal LFTs, nausea TECHNIQUE: Ultrasound evaluation of the right upper quadrant was performed with real-time and static vázquez-scale imaging. TECHNICAL QUALITY: Adequate. COMPARISON: None. FINDINGS: Liver: The liver measures 16.5 cm. There is normal echogenicity of the liver. The bile ducts are within normal limits. There is hepatic color flow. The direction of portal flow is hepatopetal. There is no demonstrated mass lesion. The portal vein measures 6.1 mm. Gallbladder: Normal distended gallbladder. The gallbladder wall measures 4 mm. There is a negative sonographic Graham''s sign. Allowing for summation artifact with the gallbladder wall and liver There is no visualized significant pericholecystic fluid. The small echogenic focus measuring approximately 3 x 4 mm. There are small several small foci of sludge and/or stones within the dependent portion of the gallbladder. Common Bile Duct (C.B.D.): The common bile duct measures 4 mm. Pancreas: Normal size of the head, body of the pancreas. There is normal echogenicity of the pancreas. There is no demonstrated pancreatic mass or cyst. Tail is not well-visualized. Right Kidney: Normal size of the right kidney. The right kidney measures 9.9 x 5.2 x 3.9 cm. Normal renal cortex. The right cortex measures 1.4 cm. There is no demonstrated renal mass or cyst. There is no right hydronephrosis. US/Gallbladder IMPRESSION: Enlarged fatty infiltrated liver. There is mild thickening of the gallbladder wall sludge and/or stones. The sonographic Graham''s sign is described as negative. Consider the possibility of chronic cholecystitis. Artifact versus trace pericholecystic fluid. Electronically Signed: Sariah Cotton MD at 23:49 EST Tel , Service support ,
[2019-01-31 23:02] LABS: Lipase 121 U/L (73-393)
[2019-01-31 23:17] VITALS: BP 133/62; PULSE 78; RESP 16; O2SAT 97
--- NOTE | 2019-01-31 23:28 | HP.PCM_ITS ---
Problem List (1) Elevated LFTs Status: Acute (2) Essential hypertension Status: Chronic (3) COPD exacerbation Status: Acute (4) Obesity (BMI 30.0-34.9) Status: Chronic (5) RBBB (right bundle branch block) Status: Chronic (6) Hyperlipidemia Status: Chronic Qualifiers: (7) Cardiomyopathy, dilated Status: Chronic (8) Nonrheumatic mitral valve regurgitation Status: Chronic (9) Biventricular automatic implantable cardioverter defibrillator in situ Status: Chronic Comment: RV lead implantation complicated by tamponade - pericardiocentesis done 01/05/15 History of Present Illness Date of Admission: 01/31/19 Chief Complaint: shortness of breath The patient is a 58 year old female patient with a past medical history of congestive heart failure, status post implantable cardiac defibrillator pacemaker, COPD, presents the emergency room with acute shortness of breath. She states that she has been getting more short of breath over the past 2 weeks. She also complains of some generalized right upper quadrant abdominal pain that radiates to her back. Patient has a decreased appetite but denies nausea and vomiting presently. CBC and BMP are unremarkable lactate level is 0.7, total bilirubin is 3.9, AST 1365, ALT 1914, chest x-ray is negative for any acute process. Ultrasound and CT of the abdomen are pending at the time she was admitted due to elevated liver functions. Pain has improved after receiving steroids, oxygen support, breathing treatment. The patient will be admitted for COPD exacerbation along with elevated liver functions and suspect gallbladder disease. Past Medical History Past Medical History (Chronic Problems): Chronic Problems (Last Reviewed 09/23/18 @ 15:41 by Renetta Almodovar) Essential hypertension (Chronic) Obesity (BMI 30.0-34.9) (Chronic) RBBB (right bundle branch block) (Chronic) Hyperlipidemia (Chronic) Cardiomyopathy, dilated (Chronic) Nonrheumatic mitral valve regurgitation (Chronic) Chronic systolic congestive heart failure (Chronic) Biventricular automatic implantable cardioverter defibrillator in situ (Chronic ~01/05/15) RV lead implantation complicated by tamponade -pericardiocentesis done 01/05/15 Atherosclerotic heart disease of [place] coronary artery without angina pectoris (Chronic) Ventricular tachycardia (Chronic) Medical History: Medical History (Last Reviewed 09/23/18 @ 15:41 by Renetta Almodovar) COPD exacerbation (Acute) J44.1 Obesity (BMI 30.0-34.9) (Chronic) E66.9 Cardiac tamponade (Acute) I31.4 RBBB (right bundle branch block) (Chronic) I45.10 Hyperlipidemia (Chronic) E78.5 Cardiomyopathy, dilated (Chronic) I42.0 Nonrheumatic mitral valve regurgitation (Chronic) I34.0 Chronic systolic congestive heart failure (Chronic) I50.22 Biventricular automatic implantable cardioverter defibrillator in situ (Chronic) Onset Date: ~01/05/15 Z95.810 RV lead implantation complicated by tamponade -pericardiocentesis done 01/05/15 Atherosclerotic heart disease of [place] coronary artery without angina pectoris (Chronic) I25.10 Ventricular tachycardia (Chronic) I47.2 Anxiety F41.9 COPD (chronic obstructive pulmonary disease) J44.9 Depression F32.9 Allergies acetaminophen [From Vicodin] Allergy (Verified 01/31/19 20:26) Hives hydrocodone bitartrate [From Vicodin] Allergy (Verified 01/31/19 20:26) Hives Penicillins Allergy (Verified 01/31/19 20:26) Anaphylaxis Home Medications: Ambulatory Orders Medication Instructions Recorded Digoxin [Lanoxin] 250 mcg PO DAILY #30 tab 04/29/14 Furosemide [Lasix] 20 mg PO DAILY #30 tab 04/29/14 Losartan Potassium [Cozaar] 50 mg PO DAILY 04/16/15 Spironolactone [Aldactone] 25 mg PO DAILY 04/16/15 albuterol sulfate HFA 90 2 puff INHALATION Q4H PRN 06/30/17 mcg/actuation aerosol inhaler atorvastatin 40 mg tablet 40 mg PO QDAY 06/30/17 carvedilol 12.5 mg tablet 12.5 mg PO BID 06/30/17 Albuterol Aerosols [Ventolin 2.5 mg INHALATION Q4HWA.RT 12/10/17 Aerosols] Levothyroxine [Synthroid] 25 mcg PO DAILY 12/10/17 Paroxetine HCl [Paxil] 40 mg PO DAILY 12/10/17 Tamsulosin HCl [Flomax] 0.4 mg PO QHS 12/10/17 Home Oxygen 3 lpm INHALATION DAILY PRN 09/23/18 Surgical History: Surgical History (Last Reviewed 09/23/18 @ 15:41 by Renetta Almodovar) History of tubal ligation Z98.51 Status post pericardiocentesis Z98.890 Surgical History: - - x 2, hysterectomy, AICD/pacemaker placement. 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 pertinent STUDENT SUPPORT SERVICES DIRECTOR history Smoking Status: Former smoker - *Family History Maternal Family History: Family History (Last Reviewed 09/23/18 @ 15:41 by Renetta Almodovar) Father CAD (coronary artery disease) Hypertension Mother CAD (coronary artery disease) Hypertension Diabetes Brother CAD (coronary artery disease) History Items: Diabetes, Heart Disease, Hypertension Paternal Family History: Family History (Last Reviewed 09/23/18 @ 15:41 by Renetta Almodovar) Father CAD (coronary artery disease) Hypertension Mother CAD (coronary artery disease) Hypertension Diabetes Brother CAD (coronary artery disease) History Items: Heart Disease, Hypertension Review of Systems Constitutional: Reports: Fever, Weakness. Denies: Chills, Weight Change HEENT: Denies: Head Aches, Sinus Congestion, Sinus Drainage Cardiovascular: Denies: Chest Pain, Palpitations Respiratory: Reports: Shortness of breath at rest, Shortness of breath upon exertion. Denies: Cough, Sputum production Gastrointestinal: Reports: Abdominal Pain. Denies: Nausea, Vomiting Genitourinary: Denies: Dysuria Musculoskeletal: Denies: Joint Pain, Joint Tenderness Skin: Denies: Rash, Wounds Neurological: Denies: Numbness, Tingling, Focal weakness Psychiatric: Denies: Anxiety, Depression, Homicidal Ideations, Suicidal Ideations Hematologic/ Lymphatic: Denies: Easy Bruising, Easy Bleeding VTE Information - Inpt Only VTE Present on Admission: No VTE Mechan Device Prophylaxis: None VTE Pharm Prophylaxis ordered?: Yes Patient Problems: Active and Suspected Problems (Last Reviewed 09/23/18 @ 15:41 by Renetta Almodovar) Elevated LFTs (Acute) - Physical Exam Vitals/I&O's: Vital Signs Temp Pulse Resp BP Pulse Ox 99.5 F H 80 16 119/59 L 92 01/31/19 20:23 01/31/19 22:24 01/31/19 22:24 01/31/19 22:24 01/31/19 22:24 Oxygen Flow Rate (L/min) 3 Oxygen Delivery Method Nasal Cannula Weight: 159 lb 2.78 oz Body Mass Index (BMI) 31.1 General: Alert, Oriented x3, Cooperative HEENT: Atraumatic, Normocephalic Neck: Supple Lungs: No rhonchi, No wheeze, No rales, Diminished, Short of Breath Cardiovascular: Regular rate, Normal S1, Normal S2, No murmurs Abdomen: Bowel Sounds Present, Obese, Tender - ruq Extremities: No edema Skin: No rashes, No breakdown Musculoskeletal: No Tenderness to Palpation of Joints or Extremities Neurological: Neuro grossly intact Psych/Mental Status: Normal Affect, Appropriate Microbiology Past 72 Hours 01/31/19 20:57 Mucosa - Nose Influenza Types A,B Direct FA (ANGELES) - Final Laboratory Results 01/31/19 21:20: WBC 4.8, RBC 4.59, Hgb 12.7, Hct 41.8, MCV 91.1, MCH 27.7, MCHC 30.4 L, RDW Std Deviation 49.8 H, RDW Coeff of Siobhan 14.9 H, Plt Count 284, MPV 9.2, Immature Gran % (Auto) 0.200, Neut % (Auto) 38.8 L, Lymph % (Auto) 47.1 H, Bell % (Auto) 12.9 H, Eos % (Auto) 0.8, Baso % (Auto) 0.2, Absolute Neuts (auto) 1.9 L, Absolute Lymphs (auto) 2.26, Nucleated RBC % 0, Differential Comment SCANNED, Platelet Estimate ADEQUATE, Stomatocytes 1+ 01/31/19 21:20: Lactic Acid 0.7 01/31/19 21:20: Sodium 138, Potassium 3.8, Chloride 94 L, Carbon Dioxide 40.0 H, Anion Gap 4 L, BUN 9, Creatinine 0.65, Estim Creat Clear Calc 66.11, Est GFR (MDRD) Af Amer 119, Est GFR (MDRD) Non-Af 98, BUN/Creatinine Ratio 13.8, Glucose 182 H, Calcium 8.7, Total Bilirubin 3.90 H, AST 1365 H, ALT 1914 H, Alkaline Phosphatase 757 H, Total Protein 7.0, Albumin 2.9 L, Globulin 4.1, Albumin/Globulin Ratio 0.7 L 01/31/19 21:20: Lipase 121 01/31/19 21:30: Urine Color Yellow, Urine Clarity Clear, Urine pH 6.0, Ur Specific [place] 1.015, Urine Protein 15 H, Urine Glucose (UA) Normal, Urine Ketones Negative, Urine Occult Blood 10 H, Urine Nitrite Negative, Urine Bilirubin 1 H, Urine Urobilinogen 4 H, Ur Leukocyte Esterase 25 H, Urine RBC 0-5 SEEN, Urine WBC 0-5 SEEN, Ur Squamous Epith Cells 0-5 SEEN, Urine Bacteria 0 SEEN, Hyaline Casts 0-5 SEEN, Urine Mucus 0 SEEN Assessment/Plan All Active Problems (Last Reviewed 09/23/18 @ 15:41 by Renetta Almodovar) Elevated LFTs (Acute) COPD exacerbation (Acute) Cardiac tamponade (Acute) Chronic Problems (Last Reviewed 09/23/18 @ 15:41 by Renetta Almodovar) Essential hypertension (Chronic) Obesity (BMI 30.0-34.9) (Chronic) RBBB (right bundle branch block) (Chronic) Hyperlipidemia (Chronic) Cardiomyopathy, dilated (Chronic) Nonrheumatic mitral valve regurgitation (Chronic) Chronic systolic congestive heart failure (Chronic) Biventricular automatic implantable cardioverter defibrillator in situ (Chronic ~01/05/15) RV lead implantation complicated by tamponade -pericardiocentesis done 01/05/15 Atherosclerotic heart disease of absent[place] coronary artery without angina pectoris (Chronic) Ventricular tachycardia (Chronic) Plan 1. COPD exacerbation?admit to general medical floor, Solu-Medrol 40 mg IV every 8 hours, DuoNeb INH every 4 hours, Levaquin 500 mg IV daily, oxygen per routine protocol 2. Elevated liver enzymes?stat ultrasound gallbladder pending, CT scan noncontrast abdomen ordered to rule out mass, consult surgery, keep patient n.p.o., IV normal saline at 100 cc/h 3. Hyperlipidemia?we will hold medications while n.p.o. 4. DVT prophylaxis?low molecular weight heparin 5. Hypertension?hold oral medications may add PRN if necessary Code Visit Inpatient E&M: 52968 Init Hosp L3
--- NOTE | 2019-01-31 23:34 | CT_ITS ---
STUDY: CT ABDOMEN AND PELVIS WITH CONTRAST REASON FOR EXAM: Female, 58 years old. Right upper quadrant pain elevated LFTs RADIATION DOSAGE (If Supplied By Facility): CTDIvol = ( 17.55 ) mGy, DLP = ( 850.83 ) mGycm TECHNIQUE: Transaxial images were obtained from the dome of the diaphragm to the symphysis pubis without oral contrast. IV 100mL Isovue-370 was administered. Sagittal and coronal images were reconstructed. Individualized dose optimization techniques were used for this CT. COMPARISON: Ultrasound gallbladder January 31, 2019, limited comparison CT chest April 26, 2014 FINDINGS: Lungs are hyperinflated there is scarring in the left lung base. The visualized pacer leads. The liver appears mildly fatty infiltrated. There is a punctate cystic structure within the left hepatic lobe. There is minimal intrahepatic ductal dilatation. Common duct measures approximately 6 mm. There is wall thickening trace pericholecystic fluid similar to prior study. Normal spleen. Normal pancreas. Normal bilateral adrenal glands. Normal right kidney. Normal left kidney. Normal visualized stomach. Normal small intestine. There is mild to moderate stool in the colon. There is a decompressed appearance of the descending colon. There is diverticulosis without visualized diverticulitis. The appendix is visualized and appears normal. The aorta is partially calcified mildly tortuous. There is calcification at the takeoff of the renal arteries. Normal inferior vena cava. Normal retroperitoneum. Normal urinary bladder. There is absence of the uterus consistent with a prior hysterectomy. There is a small umbilical hernia containing fat. There is a broad disc bulge L4-L5 with mild to moderate neural foramina narrowing facet arthropathy. 5 S1 there is a minimal broad disc bulge without significant neural foramina narrowing is suggestive stenosis. There is injection granuloma or granuloma within the subcutaneous soft tissues. There is advanced degenerative change of the right greater than left hip joints. CT/Abdomen/Pelvis W IV Cont ONLY IMPRESSION: Wall thickening of the gallbladder trace pericholecystic fluid mild distention of the common duct. Radiographic findings are suspicious for acute cholecystitis potentially chronic cholecystitis. This is concordant with the ultrasound findings. However, It should be noted that the ultrasound described the sonographic Graham''s sign is negative. Recommend correlation with follow-up clinical evaluation especially if the patient is on pain meds.. Diverticulosis without visualized diverticulitis. Status post hysterectomy. Degenerative change of the record of the left hip joints. Electronically Signed: Sariah Cotton MD at 0:55 EST Tel , Service support ,
--- NOTE | 2019-01-31 23:35 | ED.DCSUM_ITS ---
- ER Visit Summary Date of Service: 01/31/19 Chief Complaint: Shortness of breath History of Present Illness: The patient is a [address] Ross and Dr. Yeboah. 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 She has a history of COPD. She reports that she has shortness of breath began 2 weeks ago. States it is severe at worst moderate currently. Is worsened by exertion, laying flat, or coughing. She is taken albuterol without any relief. She is on 3 L of home O2 and has not had to increase this. Patient reports he is had a nonproductive cough for the past 2 weeks. No fever, chills, or chest pain. On review of systems patient reports that she had poor appetite for the past week. She reports that she has had upper abdominal pain for the past 4 days. States it is a constant pain that is 6 out of 10 currently an 8 out of 10 at worst. Is increased with movement. She also complains of generalized weakness and a headache that is 6 out of 10 in severity. She does have a history of similar headaches. Physical Examination: Vitals: Stable. Afebrile. General: Well-nourished and well-developed. Head: Normocephalic atraumatic. Neck: Supple, no lymphadenopathy. No JVD. Nontender. Cardiovascular: Regular rate and rhythm. No murmurs. Respiratory: Mild respiratory distress. Minimal wheezing bilaterally with greatly decreased air movement. Abdominal: Soft, moderate epigastric and right upper quadrant tenderness to palpation, nondistended, normal bowel sounds. No guarding, rebound, or peritoneal signs. Back: Nontender. Extremities: Nontender, no edema. Skin: Normal color, no rash. Neurologic: Alert and oriented ?3. Cranial nerves II through XII are intact. Normal strength and sensation. Psych: Normal affect. Test Results: EKG is AV paced at 96 with no acute changes. CBC shows segmented neutrophils of 39 lymphocytes 47. Chem-7 shows a chloride of 94, CO2 of 40, glucose 182. LFTs show a total bili of 3.9, alk phos of 757, AST of 1914, ALT of 1365. Lactic acid is 0.7. Chest x-ray shows chronic changes. Ultrasound and CT of the abdomen pelvis with IV contrast are both pending. Emergency Department Course and Treatment: Patient was given albuterol Atrovent aerosols. She was given Solu-Medrol IV. She was given morphine and Zofran IV. She is resting more comfortably. Treatment Plan: Patient was discussed with Dr. Adams and Dr. Odell. She will be admitted to the hospital for further evaluation and treatment. Disposition: Admitted in improved condition Impression:. 1. COPD exacerbation. 2. Elevated LFTs. This note was generated with [employer] dictation software. It may contain incorrect words, spelling, and punctuation that were not noted in review of the chart prior to signing
[2019-02-01] VITALS (9 sets, daily range): BP systolic 98–156; BP diastolic 47–71; PULSE 72–94; RESP 16–20; TEMP 36.5–36.8; O2SAT 93–100; BMI 29.7; BMI 29.8
[2019-02-01] MEDS: 0.9% Saline Lock 10 ML Syringe IV ×5 (01:11→22:10)
[2019-02-01] MEDS: HYDROmorphone 0.5 MG/0.5 ML SYRINGE IV ×2 (01:12→08:01)
[2019-02-01] MEDS: 0.9% Normal Saline 1,000 ML 100 ML IV ×2 (01:28→12:04)
[2019-02-01] MEDS: levoFLOXacin IV 500 MG/100 ML BAG 100 MG IV (01:33)
[2019-02-01] MEDS: Ondansetron 4 MG/2 ML Vial IV (06:00)
[2019-02-01 06:56] LABS: Absolute Lymphocyte Count 0.98 X10^3/uL (0.83-4.51); Absolute Neutrophil Count 1.3 X10^3/uL (2.0-7.7); Hematocrit 41.5 % (37-47); Hemoglobin 12.2 g/dL (12.0-15.0); Lymphocyte # 0.98 X10^3/ul (4.0); Lymphocyte % 41.2 % (19-41); Mean Corp Hgb Conc 29.4 g/dL (32-36); Mean Corpuscular Hgb 27.3 pg (27.0-32.0); Mean Corpuscular Volume 92.8 fL (81-99); Mean Platelet Vol. 9.3 fl (6.2-12.0); Monocyte# 0.07 X10^3/uL; Monocyte% 2.9 % (0-10); NRBC Flagged by Analyzer 0 % (0-5); Neutrophil # 1.31 X10^3/uL (2.7-7.7); Neutrophil % 55.1 % (47-70); POSITIVE MORPHOLOGY YES; Platelet Count 274 K/mm3 (150-450); RBC Distribution Width CV 15.2 % (11.6-14.6); RBC Distribution Width SD 52.2 fl (35.1-43.9); Red Blood Count 4.47 M/mm3 (4.2-5.4); White Blood Count 2.4 K/mm3 (4.4-11.0)
[2019-02-01] MEDS: Ipratropium/Albuterol Sulfate 3 ML AMPUL.NEB INHALATION ×5 (07:06→22:30)
[2019-02-01 07:22] LABS: Differential Indicated SCAN CRITERIA MET
[2019-02-01 07:32] LABS: ALB/GLOB Ratio 0.6 RATIO (0.9-2.4); AST(SGOT) 1091 U/L (15-37); Alanine Aminotransfer ALT/SGPT 1741 U/L (13-56); Albumin, Serum 2.7 g/dL (3.2-5.0); Alkaline Phosphatase 744 U/L (45-117); Anion Gap 1 (5-15); BUN 10 mg/dL (7-18); Calcium,Total 8.2 mg/dL (8.5-10.1); Chloride 97 mmol/L (98-107); Creatinine, Serum 0.53 mg/dL (0.55-1.02); EST Glomerular Filtration Rate 126 mL/min (>60); Est Glom Filt Rate - Afr Amer 152 mL/min (>60); Estimated Creatinine Clearance 81.08 ml/min; Globulin 4.3 g/dL (2.2-4.2); Glucose 192 mg/dL (74-106); Potassium 4.1 mmol/L (3.5-5.1); Sodium Level 135 mmol/L (136-145)
[2019-02-01 07:50] LABS: Hypochromasia 1+; Platelet Estimate ADEQUATE (ADEQ); Stomatocyte 1+; Target Cells RARE
[2019-02-01 07:51] LABS: Atypical Lymphocyte RARE %
--- NOTE | 2019-02-01 07:51 | PCM.CONS.GEN ---
Problem List (1) Elevated LFTs Status: Acute Reason for Consult Date of Consultation: 02/01/19 Reason for Consultation: Elevated LFTs History of Present Illness: The patient is a 58 year old F who reports she has been having nausea and not feeling well for a week. She says she is not having any abdominal pain. She says that she has not been able to eat for an entire week and she is having some sinus drainage. 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) Ventricular tachycardia (Chronic) Medical History: Medical History (Last Reviewed 09/23/18 @ 15:41 by Renetta Almodovar) COPD exacerbation (Acute) J44.1 Obesity (BMI 30.0-34.9) (Chronic) E66.9 Cardiac tamponade (Acute) I31.4 RBBB (right bundle branch block) (Chronic) I45.10 Hyperlipidemia (Chronic) E78.5 Cardiomyopathy, dilated (Chronic) I42.0 Nonrheumatic mitral valve regurgitation (Chronic) I34.0 Chronic systolic congestive heart failure (Chronic) I50.22 Biventricular automatic implantable cardioverter defibrillator in situ (Chronic) Onset Date: ~01/05/15 Z95.810 RV lead implantation complicated by tamponade -pericardiocentesis done 01/05/15 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) I25.10 Ventricular tachycardia (Chronic) I47.2 Anxiety F41.9 COPD (chronic obstructive pulmonary disease) J44.9 Depression F32.9 Allergies acetaminophen [From Vicodin] Allergy (Verified 01/31/19 20:26) Hives hydrocodone bitartrate [From Vicodin] Allergy (Verified 01/31/19 20:26) Hives Penicillins Allergy (Verified 01/31/19 20:26) Anaphylaxis Home Medications: Ambulatory Orders Medication Instructions Recorded Digoxin [Lanoxin] 250 mcg PO DAILY #30 tab 04/29/14 Furosemide [Lasix] 20 mg PO DAILY #30 tab 04/29/14 Losartan Potassium [Cozaar] 50 mg PO DAILY 04/16/15 Spironolactone [Aldactone] 25 mg PO DAILY 04/16/15 albuterol sulfate 90 mcg/actuation 2 puff INHALATION Q4H PRN 06/30/17 aerosol inhaler atorvastatin 40 mg tablet 40 mg PO QDAY 06/30/17 carvedilol 12.5 mg tablet 12.5 mg PO BID 06/30/17 Albuterol Aerosols [Ventolin 2.5 mg INHALATION Q4HWA.RT 12/10/17 Aerosols] Levothyroxine [Synthroid] 25 mcg PO DAILY 12/10/17 Paroxetine HCl [Paxil] 40 mg PO DAILY 12/10/17 Tamsulosin HCl [Flomax] 0.4 mg PO QHS 12/10/17 Home Oxygen 3 lpm INHALATION DAILY PRN 09/23/18 Surgical History: Surgical History (Last Reviewed 09/23/18 @ 15:41 by Renetta Almodovar) History of tubal ligation Z98.51 Status post pericardiocentesis Z98.890 Surgical History: - - x 2, hysterectomy, AICD/pacemaker placement. Psychiatric History: Anxiety, Depression DRAPERY EXAMINER History: No pertinent DRAPERY EXAMINER history Smoking Status: Former smoker Tobacco Use: Cigarettes - *Family History Maternal Family History: Family History (Last Reviewed 09/23/18 @ 15:41 by Renetta Almodovar) Father CAD (coronary artery disease) Hypertension Mother CAD (coronary artery disease) Hypertension Diabetes Brother CAD (coronary artery disease) History Items: Diabetes, Heart Disease, Hypertension Paternal Family History: Family History (Last Reviewed 09/23/18 @ 15:41 by Renetta Almodovar) Father CAD (coronary artery disease) Hypertension Mother CAD (coronary artery disease) Hypertension Diabetes Brother CAD (coronary artery disease) History Items: Heart Disease, Hypertension Patient Problems: Active and Suspected Problems (Last Reviewed 09/23/18 @ 15:41 by Renetta Almodovar) Elevated LFTs (Acute) - Physical Exam Vitals/I&O's: Vital Signs Temp Pulse Resp BP Pulse Ox 98.2 F 73 20 H 133/47 H 97 02/01/19 07:35 02/01/19 07:35 02/01/19 07:35 02/01/19 07:35 02/01/19 07:35 Oxygen Flow Rate (L/min) 3 Oxygen Delivery Method Nasal Cannula Weight: 152 lb 8.958 oz Body Mass Index (BMI) 29.7 Intake and Output for Last 24 Hours 01/30/19 01/31/19 02/01/19 23:59 23:59 23:59 Intake Total 110 / 110 Balance 110 / 110 General: Alert, Oriented x3 Neck: No JVD Lungs: Normal air movement Cardiovascular: Regular rate, Regular Rhythm Abdomen: Soft, Non Tender, Non-Distended Microbiology Past 72 Hours 01/31/19 20:57 Mucosa - Nose Influenza Types A,B Direct FA (ANGELES) - Final Laboratory Results 01/31/19 21:20: WBC 4.8, RBC 4.59, Hgb 12.7, Hct 41.8, MCV 91.1, MCH 27.7, MCHC 30.4 L, RDW Std Deviation 49.8 H, RDW Coeff of Siobhan 14.9 H, Plt Count 284, MPV 9.2, Immature Gran % (Auto) 0.200, Neut % (Auto) 38.8 L, Lymph % (Auto) 47.1 H, [place] % (Auto) 12.9 H, Eos % (Auto) 0.8, Baso % (Auto) 0.2, Absolute Neuts (auto) 1.9 L, Absolute Lymphs (auto) 2.26, Nucleated RBC % 0, Differential Comment SCANNED, Platelet Estimate ADEQUATE, Stomatocytes 1+ 01/31/19 21:20: Lactic Acid 0.7 01/31/19 21:20: Sodium 138, Potassium 3.8, Chloride 94 L, Carbon Dioxide 40.0 H, Anion Gap 4 L, BUN 9, Creatinine 0.65, Estim Creat Clear Calc 66.11, Est GFR (MDRD) Af Amer 119, Est GFR (MDRD) Non-Af 98, BUN/Creatinine Ratio 13.8, Glucose 182 H, Calcium 8.7, Total Bilirubin 3.90 H, AST 1365 H, ALT 1914 H, Alkaline Phosphatase 757 H, Total Protein 7.0, Albumin 2.9 L, Globulin 4.1, Albumin/Globulin Ratio 0.7 L 01/31/19 21:20: Lipase 121 01/31/19 21:30: Urine Color Yellow, Urine Clarity Clear, Urine pH 6.0, Ur Specific [place] 1.015, Urine Protein 15 H, Urine Glucose (UA) Normal, Urine Ketones Negative, Urine Occult Blood 10 H, Urine Nitrite Negative, Urine Bilirubin 1 H, Urine Urobilinogen 4 H, Ur Leukocyte Esterase 25 H, Urine RBC 0-5 SEEN, Urine WBC 0-5 SEEN, Ur Squamous Epith Cells 0-5 SEEN, Urine Bacteria 0 SEEN, Hyaline Casts 0-5 SEEN, Urine Mucus 0 SEEN 02/01/19 06:08: WBC 2.4 L, RBC 4.47, Hgb 12.2, Hct 41.5, MCV 92.8, MCH 27.3, MCHC 29.4 L, RDW Std Deviation 52.2 H, RDW Coeff of Siobhan 15.2 H, Plt Count 274, MPV 9.3, Immature Gran % (Auto) 0.800, Neut % (Auto) 55.1, Lymph % (Auto) 41.2 H, [place] % (Auto) 2.9, Eos % (Auto) 0.0, Baso % (Auto) 0.0, Absolute Neuts (auto) 1.3 L, Absolute Lymphs (auto) 0.98, Nucleated RBC % 0, Atypical Lymphocytes RARE, Platelet Estimate ADEQUATE, Hypochromasia 1+, Target Cells RARE, Stomatocytes 1+ 02/01/19 06:08: Sodium 135 L, Potassium 4.1, Chloride 97 L, Carbon Dioxide 37.0 H, Anion Gap 1 L, BUN 10, Creatinine 0.53 L, Estim Creat Clear Calc 81.08, Est GFR (MDRD) Af Amer 152, Est GFR (MDRD) Non-Af 126, BUN/Creatinine Ratio 19.0, Glucose 192 H, Calcium 8.2 L, Total Bilirubin 2.60 H, AST 1091 H, ALT 1741 H, Alkaline Phosphatase 744 H, Total Protein 7.0, Albumin 2.7 L, Globulin 4.3 H, Albumin/Globulin Ratio 0.6 L 02/01/19 06:58: Hepatitis A IgM Ab Pending, Hep Bs Antigen Pending, Hep B Core IgM Ab Pending, Hepatitis C Ab (EIA) Pending Current Medications Albuterol/Ipratropium (Duoneb) 3 ml INHALATION Q4H.RT [facility] Last Admin: 02/01/19 07:06 Dose: 3 ml Documented by: Enoxaparin Sodium (Lovenox) 40 mg SC DAILY [facility] Hydromorphone HCl (Dilaudid Inj) 0.5 mg IV Q4H PRN PRN PRN Reason: Pain Score 6-10/10 Last Admin: 02/01/19 01:12 Dose: 0.5 mg Documented by: Sodium Chloride () 1,000 mls @ 100 mls/hr IV .Q10H [facility] Last Infusion: 02/01/19 02:35 Dose: 100 mls/hr Documented by: Levofloxacin (Levaquin Iv) 500 mg in 100 mls @ 100 mls/hr IV Q24@2200 [facility] Stop: 02/04/19 22:59 Last Infusion: 02/01/19 02:35 Dose: Infused Documented by: Methylprednisolone (Solu-Medrol) 40 mg IV Q8 [facility] Last Admin: 02/01/19 05:00 Dose: 40 mg Documented by: Nutritional Formula (Lactose Free) (Ensure Enlive) 120 ml PO 4X/DAY [facility] Ondansetron HCl (Zofran) 4 mg IV Q8H PRN PRN PRN Reason: NAUSEA/VOMITING Last Admin: 02/01/19 06:00 Dose: 4 mg Documented by: Sodium Chloride () 10 - 40 ml IV UD PRN PRN Reason: SALINE FLUSH Last Admin: 02/01/19 01:11 Dose: 10 ml Documented by: Assessment/Plan All Active Problems (Last Reviewed 09/23/18 @ 15:41 by Renetta Almodovar) Elevated LFTs (Acute) COPD exacerbation (Acute) Cardiac tamponade (Acute) 58-year-old female with elevated liver enzymes 1. The patient does not report any abdominal pain. She is only having nausea. I reviewed her CT scan and her ultrasound. I believe that she has viral hepatitis. She has a normal white count with no left shift and her biliary radicles are not dilated. I have checked a hepatitis panel. She is okay from a diet for my standpoint as there is no surgical intervention planned at this time. Bubba Odell MD Pager: [facility] [address] [place] [address], [address] [place] [address] Office:
[2019-02-01] MEDS: Enoxaparin 40 MG/0.4 ML Syringe SC (09:47)
--- NOTE | 2019-02-01 12:08 | NURSING ---
PT RESTING QUIETLY IN BED WITH EYES CLOSED, RESP EASY
--- NOTE | 2019-02-01 13:11 | CHAPLAIN ---
Type of Pastoral Visit _x__ Initial Visit ___ Follow-up Visit ___ On-call Visit ___ General Patient Visit ___ Spiritual Assessment ___ Family Conference ___ Bereavement ___ Rapid Response ___ Code Blue ___ Other (describe below) Pastoral Care Referral From _x__ Patient ___ Family ___ Nurse ___ Physician ___ Stock Digger ___ Furnace Packer ___ Other (describe below) Sacrament/Intervention _x__ Active listening ___ Anointing ___ Roman Catholic ___ Bereavement ___ Communion ___ Valentina exploration ___ ___ Life review _x__ Prayer ___ Reconciliation ___ Sacrament of Sick ___ Supportive presence ___ Wedding ___ Other (describe below) Pastoral Comments
[2019-02-01] MEDS: HYDROmorphone 1 MG/ML Syringe IV ×2 (14:50→20:04)
--- NOTE | 2019-02-01 15:20 | CASEMGMT ---
RN CM Assessment Introduced role of RN CM to patient.? Patient is alert, oriented and able?to participate in RN CM Assessment. ?Care providers, pharmacy, and demographics verified. Presentation: Acute SOB, decreased appetite. H/o CHF s/p implantable cardiac defibrillator pacemaker, COPD Admit Dx: COPD Exacerbation, Elevated Liver Enzymes Re-Admit: No Barriers/Issues: States sometimes has issues with transportation, finding someone to take her to appointments. Patient has secondary Insurance [facility] and discussed her calling to s/w someone/a family caseworker regarding transportation assistance. Provided patient with transportation resources for [facility] transportation, [place] [employer], [employer] and [employer]. Has an Aide through W[employer] named Sangeetha with [employer] #[phone] for 3days/week and 2hrs/day. States assists with cleaning, states can help bathe-has not yet as patient has been Independent but states it has become more difficult for her. Patient states that she has her Long acting and Rescue inhalers, states has plenty of albuterol for her nebulizer, states that she is following a low sodium/fluid restriction diet, Gets meals through [employer] Whe[employer]. States that she has a scale to weigh herself at home, states has CHF for about 4yrs and feels she manages it pretty well. PCP: Carlos Ross Chi Specialists: Cardio- Dr Yeboah, Pulm- Dr Wallace ([facility] sees Cassidy Beckwith NP from Dr Wallace's office) Preferred Pharmacy: [facility], [place] Insurance: [facility] A&B, [facility] Rx Benefit:?Yes ?LNOK: Dtr Rita CADENA/HPOA: States completed HPOA- aware not on file and if brought in will scan a copy on file. HPOA- Dtr in law Shira Holden- which is now Shira Blood after she her son Anam Blood. Living Arrangements:? Lives alone in a ground level apartment, no steps to enter ADL?s: Ambulates with walker, Independent with ADLs but is becoming more difficult. Transportation: Friends or family. See issue above. DC with sister Daniel Mazariegos or her son Anam Blood DME: Home O2 Cont at 3L with Walt, portable tanks- none here at bedside but states her family can bring a portable when she gets picked up on DC, Nebulizer, 2WW, Rollator, WC, Bath Bench HHC: None. Aide through [employer] with [employer], see above note SNF: None Goal: Home and does not think will have any additional needs. Denies any issues, concerns, or questions with DC planning at this time. Aware CM remains available for any emerging needs. DC PLAN: Home with no anticipated needs identified at this time. Sánchez Tomlinson RNCM
--- NOTE | 2019-02-01 19:01 | PN_ITS ---
Subjective: Patient was seen and examined today, I talked at length with general surgery today, general surgery does not think the patient has an acute gallbladder. Patient does not complain of any shortness of breath, her oxygen requirement is the same as at home. I have decided to take her off Levaquin-I do not see any need for this. - Physical Exam Vitals/I&O's: Vital Signs Temp Pulse Resp BP Pulse Ox 98.1 F 85 18 151/71 H 96 02/01/19 13:30 02/01/19 15:14 02/01/19 15:14 02/01/19 13:30 02/01/19 15:14 Oxygen Flow Rate (L/min) 3 Oxygen Delivery Method Nasal Cannula Weight: 69.2 kg Body Mass Index (BMI) 29.7 Intake and Output for Last 24 Hours 01/30/19 01/31/19 02/01/19 23:59 23:59 23:59 Intake Total 2926.66 / 2926.66 Balance 2926.66 / 2926.66 General: Alert, Oriented x3, Cooperative, No apparent distress, Well developed HEENT: Atraumatic, PERRLA, EOMI, Normocephalic Oral: Moist Mucosa Neck: Supple, Trachea Midline, Thyroid Normal Size and Texture Lungs: Clear to auscultation, No rhonchi, No wheeze, Diminished Cardiovascular: Regular rate, Regular Rhythm, Normal S1, Normal S2, No murmurs, PMI Normal, No rub noted Abdomen: Bowel Sounds Present, Soft, Non Tender, Non-Distended Extremities: No clubbing, No cyanosis, No edema, Capillary Refill Less than 3 Seconds Skin: No rashes, No breakdown Musculoskeletal: No Tenderness to Palpation of Joints or Extremities Neurological: Cranial nerves II-XII grossly intact, Neuro grossly intact, Sensory exam intact to light touch and pain Psych/Mental Status: Normal Affect, Appropriate, Alert and oriented to time, place, person, mood and affect Microbiology Past 72 Hours 01/31/19 20:57 Mucosa - Nose Influenza Types A,B Direct FA (ANGELES) - Final Laboratory Results 01/31/19 21:20: WBC 4.8, RBC 4.59, Hgb 12.7, Hct 41.8, MCV 91.1, MCH 27.7, MCHC 30.4 L, RDW Std Deviation 49.8 H, RDW Coeff of Siobhan 14.9 H, Plt Count 284, MPV 9.2, Immature Gran % (Auto) 0.200, Neut % (Auto) 38.8 L, Lymph % (Auto) 47.1 H, [place] % (Auto) 12.9 H, Eos % (Auto) 0.8, Baso % (Auto) 0.2, Absolute Neuts (auto) 1.9 L, Absolute Lymphs (auto) 2.26, Nucleated RBC % 0, Differential Comment SCANNED, Platelet Estimate ADEQUATE, Stomatocytes 1+ 01/31/19 21:20: Lactic Acid 0.7 01/31/19 21:20: Sodium 138, Potassium 3.8, Chloride 94 L, Carbon Dioxide 40.0 H, Anion Gap 4 L, BUN 9, Creatinine 0.65, Estim Creat Clear Calc 66.11, Est GFR (MDRD) Af Amer 119, Est GFR (MDRD) Non-Af 98, BUN/Creatinine Ratio 13.8, Glucose 182 H, Calcium 8.7, Total Bilirubin 3.90 H, AST 1365 H, ALT 1914 H, Alkaline Phosphatase 757 H, Total Protein 7.0, Albumin 2.9 L, Globulin 4.1, Albumin/Globulin Ratio 0.7 L 01/31/19 21:20: Lipase 121 01/31/19 21:30: Urine Color Yellow, Urine Clarity Clear, Urine pH 6.0, Ur Specific [place] 1.015, Urine Protein 15 H, Urine Glucose (UA) Normal, Urine Ketones Negative, Urine Occult Blood 10 H, Urine Nitrite Negative, Urine Bilirubin 1 H, Urine Urobilinogen 4 H, Ur Leukocyte Esterase 25 H, Urine RBC 0-5 SEEN, Urine WBC 0-5 SEEN, Ur Squamous Epith Cells 0-5 SEEN, Urine Bacteria 0 SEEN, Hyaline Casts 0-5 SEEN, Urine Mucus 0 SEEN 02/01/19 06:08: WBC 2.4 L, RBC 4.47, Hgb 12.2, Hct 41.5, MCV 92.8, MCH 27.3, MCHC 29.4 L, RDW Std Deviation 52.2 H, RDW Coeff of Siobhan 15.2 H, Plt Count 274, MPV 9.3, Immature Gran % (Auto) 0.800, Neut % (Auto) 55.1, Lymph % (Auto) 41.2 H , [place] % (Auto) 2.9, Eos % (Auto) 0.0, Baso % (Auto) 0.0, Absolute Neuts (auto) 1.3 L, Absolute Lymphs (auto) 0.98, Nucleated RBC % 0, Atypical Lymphocytes RARE, Platelet Estimate ADEQUATE, Hypochromasia 1+, Target Cells RARE, Stomatocytes 1+ 02/01/19 06:08: Sodium 135 L, Potassium 4.1, Chloride 97 L, Carbon Dioxide 37.0 H, Anion Gap 1 L, BUN 10, Creatinine 0.53 L, Estim Creat Clear Calc 81.08, Est GFR (MDRD) Af Amer 152, Est GFR (MDRD) Non-Af 126, BUN/Creatinine Ratio 19.0, Glucose 192 H, Calcium 8.2 L, Total Bilirubin 2.60 H, AST 1091 H, ALT 1741 H, Alkaline Phosphatase 744 H, Total Protein 7.0, Albumin 2.7 L, Globulin 4.3 H, Albumin/Globulin Ratio 0.6 L 02/01/19 06:58: Hepatitis A IgM Ab Pending, Hep Bs Antigen Pending, Hep B Core IgM Ab Pending, Hepatitis C Ab (EIA) Pending Current Medications Albuterol/Ipratropium (Duoneb) 3 ml INHALATION Q4H.RT [facility] Last Admin: 02/01/19 15:14 Dose: 3 ml Documented by: Enoxaparin Sodium (Lovenox) 40 mg SC DAILY [facility] Last Admin: 02/01/19 09:47 Dose: 40 mg Documented by: Hydromorphone HCl (Dilaudid Inj) 1 mg IV Q4H PRN PRN PRN Reason: pain Last Admin: 02/01/19 14:50 Dose: 1 mg Documented by: Methylprednisolone (Solu-Medrol) 40 mg IV Q8 [facility] Last Admin: 02/01/19 14:50 Dose: 40 mg Documented by: Nutritional Formula (Lactose Free) (Ensure Enlive) 120 ml PO 4X/DAY [facility] Last Admin: 02/01/19 17:44 Dose: 120 ml Documented by: Ondansetron HCl (Zofran) 4 mg IV Q8H PRN PRN PRN Reason: NAUSEA/VOMITING Last Admin: 02/01/19 06:00 Dose: 4 mg Documented by: Sodium Chloride () 10 - 40 ml IV UD PRN PRN Reason: SALINE FLUSH Last Admin: 02/01/19 14:50 Dose: 10 ml Documented by: Medical Necessity - Tobacco Use Smoking Status: Former smoker Tobacco Use: Cigarettes Assessment/Plan All Active Problems (Last Reviewed 09/23/18 @ 15:41 by Renetta Almodovar) Elevated LFTs (Acute) COPD exacerbation (Acute) Cardiac tamponade (Acute) #1 acute hepatitis-type unknown, general surgery does not feel the patient has cholecystitis #2 Exacerbation of COPD #3 chronic hypoxic respiratory failure #4 hyperlipidemia #5 essential hypertension Code Visit Inpatient E&M: 14731 Subs Hosp L2
[2019-02-02] VITALS (9 sets, daily range): BP systolic 101–129; BP diastolic 48–66; PULSE 64–100; RESP 16–18; TEMP 36.3–36.8; O2SAT 91–99
[2019-02-02] MEDS: HYDROmorphone 1 MG/ML Syringe IV ×3 (00:25→09:29)
[2019-02-02] MEDS: 0.9% Saline Lock 10 ML Syringe IV ×4 (00:26→13:40)
[2019-02-02 05:06] LABS: HEPATITIS B SURFACE AG Negative (Negative); Hepatitis B Core AB IgM Negative (Negative)
--- NOTE | 2019-02-02 06:40 | PCM.PN.BLA ---
Progress Note Nursing team reports nits in hair. Permethrin lotion ordered. Isolation precautions. STROKE Vital Signs/Narrative: Vital Signs Temp Pulse Resp BP Pulse Ox 02/02/19 03:30 97.9 F 78 18 106/65 99
[2019-02-02 06:51] LABS: ALB/GLOB Ratio 0.6 RATIO (0.9-2.4); AST(SGOT) 518 U/L (15-37); Alanine Aminotransfer ALT/SGPT 1178 U/L (13-56); Albumin, Serum 2.6 g/dL (3.2-5.0); Alkaline Phosphatase 687 U/L (45-117); Anion Gap 2 (5-15); BUN 12 mg/dL (7-18); BUN/Creat Ratio 21.1 RATIO (10-20); Calcium,Total 8.5 mg/dL (8.5-10.1); Chloride 101 mmol/L (98-107); Creatinine, Serum 0.57 mg/dL (0.55-1.02); EST Glomerular Filtration Rate 115 mL/min (>60); Est Glom Filt Rate - Afr Amer 139 mL/min (>60); Estimated Creatinine Clearance 75.39 ml/min; Globulin 4.1 g/dL (2.2-4.2); Glucose 202 mg/dL (74-106); Potassium 4.4 mmol/L (3.5-5.1); Protein, Total 6.7 g/dL (6.4-8.2); Sodium Level 139 mmol/L (136-145)
[2019-02-02] MEDS: Ipratropium/Albuterol Sulfate 3 ML AMPUL.NEB INHALATION ×3 (07:12→14:59)
[2019-02-02] MEDS: Enoxaparin 40 MG/0.4 ML Syringe SC (09:26)
--- NOTE | 2019-02-02 09:36 | PN.SURG_ITS ---
Patient Problems: Active and Suspected Problems (Last Reviewed 09/23/18 @ 15:41 by Renetta Almodovar) Elevated LFTs (Acute) Subjective: Patient reports no abdominal pain and her nausea has improved. She tolerated diet. - Physical Exam Vitals/I&O's: Vital Signs Temp Pulse Resp BP Pulse Ox 97.6 F L 76 18 107/56 L 93 02/02/19 09:22 02/02/19 09:22 02/02/19 09:22 02/02/19 09:22 02/02/19 09:22 Oxygen Flow Rate (L/min) 3 Oxygen Delivery Method Nasal Cannula Weight: 152 lb 8.958 oz Body Mass Index (BMI) 29.7 Intake and Output for Last 24 Hours 01/31/19 02/01/19 02/02/19 23:59 23:59 23:59 Intake Total 2926.66 / 3046.66 240 / 240 Balance 2926.66 / 3046.66 240 / 240 General: Alert, Oriented x3 Lungs: Normal air movement Cardiovascular: Regular rate, Regular Rhythm Abdomen: Soft, Non Tender, Non-Distended Microbiology Past 72 Hours 01/31/19 20:57 Mucosa - Nose Influenza Types A,B Direct FA (ANGELES) - Final Laboratory Results 02/02/19 05:54: Sodium 139, Potassium 4.4, Chloride 101, Carbon Dioxide 36.0 H, Anion Gap 2 L, BUN 12, Creatinine 0.57, Estim Creat Clear Calc 75.39, Est GFR (MDRD) Af Amer 139, Est GFR (MDRD) Non-Af 115, BUN/Creatinine Ratio 21.1 H, Glucose 202 H, Calcium 8.5, Total Bilirubin 1.20 H, AST 518 H, ALT 1178 H, Alkaline Phosphatase 687 H, Total Protein 6.7, Albumin 2.6 L, Globulin 4.1, Albumin/Globulin Ratio 0.6 L Current Medications Albuterol/Ipratropium (Duoneb) 3 ml INHALATION Q4H.RT [facility] Last Admin: 02/02/19 07:12 Dose: 3 ml Documented by: Enoxaparin Sodium (Lovenox) 40 mg SC DAILY [facility] Last Admin: 02/02/19 09:26 Dose: 40 mg Documented by: Hydromorphone HCl (Dilaudid Inj) 1 mg IV Q4H PRN PRN PRN Reason: pain Last Admin: 02/02/19 09:29 Dose: 1 mg Documented by: Methylprednisolone (Solu-Medrol) 40 mg IV Q8 [facility] Last Admin: 02/02/19 05:07 Dose: 40 mg Documented by: Nutritional Formula (Lactose Free) (Ensure Enlive) 120 ml PO 4X/DAY [facility] Last Admin: 02/01/19 22:12 Dose: 120 ml Documented by: Ondansetron HCl (Zofran) 4 mg IV Q8H PRN PRN PRN Reason: NAUSEA/VOMITING Last Admin: 02/01/19 06:00 Dose: 4 mg Documented by: Sodium Chloride () 10 - 40 ml IV UD PRN PRN Reason: SALINE FLUSH Last Admin: 02/02/19 09:26 Dose: 10 ml Documented by: Medical Necessity - Tobacco Use Smoking Status: Former smoker Tobacco Use: Cigarettes Assessment/Plan All Active Problems (Last Reviewed 09/23/18 @ 15:41 by Renetta Almodovar) Elevated LFTs (Acute) COPD exacerbation (Acute) Cardiac tamponade (Acute) 58-year-old female with likely acute hepatitis Patient is tolerating a diet. She may be discharged when ready with primary service. Follow-up with PCP. Bubba Odell MD Pager: [facility] [address] [place] [address], [address] [place] [address] Office:
[2019-02-02 10:06] LABS: Hep C Antibodies <0.1 s/co ratio (0.0-0.9)
[2019-02-02 10:08] LABS: Hepatitis A IgM Antibody Positive (Negative)
[2019-02-02] MEDS: oxyCODONE 5 MG Tablet PO (13:42)
--- NOTE | 2019-02-02 14:57 | CON.PCM_ITS ---
Problem List (1) Elevated LFTs Status: Acute Reason for Consult: hep A Consulted by: Dr. Copeland History of Present Illness: The patient is a 58 year old F, lives alone, presented with 7-10 days of nausea, not feeling well, mild abd pain, one day of diarrhea. No travel, no unusual foods, no sick contacts. Did have [employer] [place] one day. Gets Meals on Wheels. Came to ED, found to be jaundiced, having hepatitis. Hep A (+), now feeling better. Not sexually active. Full ROS performed and neg except as noted above. - Medical History Past Medical History (Chronic Problems): Chronic Problems (Last Reviewed 09/23/18 @ 15:41 by Renetta Almodovar) Essential hypertension (Chronic) Obesity (BMI 30.0-34.9) (Chronic) RBBB (right bundle branch block) (Chronic) Hyperlipidemia (Chronic) Cardiomyopathy, dilated (Chronic) Nonrheumatic mitral valve regurgitation (Chronic) Chronic systolic congestive heart failure (Chronic) Biventricular automatic implantable cardioverter defibrillator in situ (Chronic ~01/05/15) RV lead implantation complicated by tamponade -pericardiocentesis done 01/05/15 Atherosclerotic heart disease of [place] coronary artery without angina pectoris (Chronic) Ventricular tachycardia (Chronic) Allergies/Adverse Reactions: Allergies acetaminophen [From Vicodin] Allergy (Verified 01/31/19 20:26) Hives hydrocodone bitartrate [From Vicodin] Allergy (Verified 01/31/19 20:26) Hives Penicillins Allergy (Verified 01/31/19 20:26) Anaphylaxis Home Medications: Ambulatory Orders Medication Instructions Recorded Digoxin [Lanoxin] 250 mcg PO DAILY #30 tab 04/29/14 Furosemide [Lasix] 20 mg PO DAILY #30 tab 04/29/14 Losartan Potassium [Cozaar] 50 mg PO DAILY 04/16/15 Spironolactone [Aldactone] 25 mg PO DAILY 04/16/15 albuterol sulfate 90 mcg/actuation 2 puff INHALATION Q4H PRN 06/30/17 aerosol inhaler atorvastatin 40 mg tablet 40 mg PO QDAY 06/30/17 carvedilol 12.5 mg tablet 12.5 mg PO BID 06/30/17 Albuterol Aerosols [Ventolin 2.5 mg INHALATION Q4HWA.RT 12/10/17 Aerosols] Levothyroxine [Synthroid] 25 mcg PO DAILY 12/10/17 Paroxetine HCl [Paxil] 40 mg PO DAILY 12/10/17 Tamsulosin HCl [Flomax] 0.4 mg PO QHS 12/10/17 Home Oxygen 3 lpm INHALATION DAILY PRN 09/23/18 - Social History SMOKING STATUS:: Former smoker Vital Signs Temp Pulse Resp BP Pulse Ox 97.4 F L 82 16 129/48 H 95 02/02/19 12:58 02/02/19 12:58 02/02/19 12:58 02/02/19 12:58 02/02/19 12:58 Oxygen Flow Rate (L/min) 3 Oxygen Delivery Method Nasal Cannula Weight: 69.2 kg Body Mass Index (BMI) 29.7 Microbiology Past 72 Hours 01/31/19 20:57 Influenza Types A,B Direct FA (ANGELES) - Final Mucosa - Nose Laboratory Tests Past 24 Hrs 02/01/19 02/02/19 06:58 05:54 Sodium 139 Potassium 4.4 Chloride 101 Carbon Dioxide 36.0 H Anion Gap 2 L BUN 12 Creatinine 0.57 Estim Creat Clear Calc 75.39 Est GFR (MDRD) Af Amer 139 Est GFR (MDRD) Non-Af 115 BUN/Creatinine Ratio 21.1 H Glucose 202 H Calcium 8.5 Total Bilirubin 1.20 H AST 518 H ALT 1178 H Alkaline Phosphatase 687 H Total Protein 6.7 Albumin 2.6 L Globulin 4.1 Albumin/Globulin Ratio 0.6 L Hepatitis A IgM Ab Positive H Hep Bs Antigen Negative Hep B Core IgM Ab Negative Hepatitis C Ab (EIA) <0.1 - Other Studies Radiology: [] reviewed Other Studies: [] Route of nutrition/ use of supplements: [] Nutritional Intake: [] IV Site: [] Mehta Catheter: [] - Physical Exam General: Alert, Oriented x3, Cooperative, No apparent distress HEENT: Atraumatic, PERRLA, EOMI Neck: Supple, No Nodes Lungs: Clear to auscultation, Normal air movement Cardiovascular: Regular rate, Regular Rhythm Abdomen: Soft, Non Tender, Non-Distended Extremities: No edema Skin: No rashes, - - jaundiced IV Site: Peripheral, without redness Musculoskeletal: No Tenderness to Palpation of Joints or Extremities Neurological: Cranial nerves II-XII grossly intact - Assessment/Plan Antibiotics: [] Assessment/Plan: [] Active and Suspected Problems (Last Reviewed 09/23/18 @ 15:41 by Renetta Almodovar) Elevated LFTs (Acute) acute hep A, improving. No close contacts who will need exposure prophylaxis. Ok for d/c home, no need for further treatment other than supportive care. Will follow as needed, thank you.
--- NOTE | 2019-02-02 16:45 | DCINST_ITS ---
- Discharge Diagnoses Current Active Problems: Current Active and Chronic Problems (Last Reviewed 09/23/18 @ 15:41 by Renetta Almodovar) Elevated LFTs (Acute) You will use the following diet at home:: No restrictions Your food should be the consistency of: Regular Your liquids should be the consistency of: Regular/Thin Discharge Activity: Return to Normal Activity Weight Bearing Status: Full weight bearing Allergies/Adverse Reactions: Allergies acetaminophen [From Vicodin] Allergy (Verified 01/31/19 20:26) Hives hydrocodone bitartrate [From Vicodin] Allergy (Verified 01/31/19 20:26) Hives Penicillins Allergy (Verified 01/31/19 20:26) Anaphylaxis Medications to take at Discharge Digoxin [Lanoxin] 250 mcg PO DAILY #30 tab 04/29/14 Furosemide [Lasix] 20 mg PO DAILY #30 tab 04/29/14 Losartan Potassium [Cozaar] 50 mg PO DAILY 04/16/15 Spironolactone [Aldactone] 25 mg PO DAILY 04/16/15 albuterol sulfate 90 mcg/actuation aerosol inhaler 2 puff INHALATION Q4H PRN 06/30/17 atorvastatin 40 mg tablet 40 mg PO QDAY 06/30/17 carvedilol 12.5 mg tablet 12.5 mg PO BID 06/30/17 Albuterol Aerosols [Ventolin Aerosols] 2.5 mg INHALATION Q4HWA.RT 12/10/17 Levothyroxine [Synthroid] 25 mcg PO DAILY 12/10/17 Paroxetine HCl [Paxil] 40 mg PO DAILY 12/10/17 Tamsulosin HCl [Flomax] 0.4 mg PO QHS 12/10/17 Home Oxygen 3 lpm INHALATION DAILY PRN 09/23/18 Oxycodone [Oxyir] 5 - 10 mg PO Q6H PRN PRN 7 Days #15 tablet 02/02/19 The following prescriptions were given: Oxycodone [Oxyir] 5 - 10 mg PO Q6H PRN PRN 7 Days #15 tablet PRN Reason: Pain Score 1-10/10 Transmission Status: Sent to [facility] Primary Care Physician: Carlos Ross Chi, MD [Primary Care Provider] - Test Results: Test results from this visit will be discussed in further detail at your follow- up appointment, if applicable. Please Follow Up With: Carlos Ross Chi, MD Please Follow Up With: Cade Phipps MD When: call for appointment for next Thursday [phone]
--- NOTE | 2019-02-03 14:07 | CASEMGMT ---
ASTRID OWEN Discharge Follow-Up Phone Call. Lace: 10 Strata: 3 Discharge Date: 02/02/19 Adm Dx: COPD Exac, elevated liver enzymes Call to pt to inquire about how she has been doing since being discharged from the hospital. Pt stated she is not doing too bad. She states she has been trying to rest today since being in the hospital. She states she got the new prescription for Oxycodone and denies having any questions about it or the other medications. She is aware of the appt scheduled with Dr Ross and states she has not called to make the appt with Dr Phipps yet but she still plans to call today. She denies having any questions about the discharge instructions and denies any concerns/needs. ASTRID OWEN thanked pt for choosing [facility]. Fortunato BORDEN RN, CM
--- NOTE | 2019-02-04 16:55 | DS.PCM_ITS ---
Discharge Date and Diagnosis Date of Admission: 01/31/19 Date of Discharge: 02/02/19 - Primary Discharge Diagnosis 1 acute hepatitis A #2 Exacerbation of COPD #3 chronic hypoxic respiratory failure #4 hyperlipidemia #5 essential hypertension - Secondary Discharge Diagnosis Chronic Problems (Last Reviewed 09/23/18 @ 15:41 by Renetta Almodovar) Essential hypertension (Chronic) Obesity (BMI 30.0-34.9) (Chronic) RBBB (right bundle branch block) (Chronic) Hyperlipidemia (Chronic) Cardiomyopathy, dilated (Chronic) Nonrheumatic mitral valve regurgitation (Chronic) Chronic systolic congestive heart failure (Chronic) Biventricular automatic implantable cardioverter defibrillator in situ (Chronic ~01/05/15) RV lead implantation complicated by tamponade -pericardiocentesis done 01/05/15 Atherosclerotic heart disease of [place] coronary artery without angina pectoris (Chronic) Ventricular tachycardia (Chronic) Hospital Course and Treatment Operations: None Procedures: None Summary of Care Provided: The patient is a 58 year old F seen in the emergency room at [facility] chief complaint of shortness of breath, patient has a history of chronic hypoxic respiratory failure and is on oxygen continuously at home. Patient also complained of poor appetite and upper abdominal pain x4 days. Work-up in the emergency room included an EKG which showed an AV paced rhythm at 96, CBC showed a normal white blood cell count, glucose was elevated at 182, liver function test were abnormal showing a bilirubin of 3.9, alkaline phosphatase is 757, AST of 1914, ALT of 1365, chest x-ray showed chronic changes. Patient had a CT of the abdomen and pelvis with IV contrast, it showed wall thickening of the gallbladder with trace pericholecystic fluid, gallbladder ultrasound showed an enlarged fatty liver with mild thickening of the gallbladder with sludge and stones. Patient was admitted to PCU for exacerbation of COPD and hepatitis, she was seen in consultation by general surgery who felt that she had acute hepatitis not cholecystitis. Patient's hepatitis screen came back positive for hepatitis A-she was seen in consultation by infectious diseases who did not feel she warranted additional treatment for her hepatitis A. On 02/02/2019, patient was seen and examined: On examination she appeared in good health and spirits. Vital signs as documented. Skin warm and dry and without overt rashes. Neck without JVD. Lungs clear. Heart exam notable for regular rhythm, normal sounds and absence of murmurs, rubs or gallops. Abdomen unremarkable and without evidence of organomegaly, masses, or abdominal aortic enlargement. Extremities nonedematous. Neuro: Cranial nerves II through XII are grossly intact, no focal motor deficits were noted, sensation to light touch and pinprick is intact. Psych: Patient is alert and oriented x3, she does not appear anxious or depressed On 02/02/2019, patient was seen and examined felt to be in stable condition for discharge home. - Physical Exam Vitals/I&O's: Vital Signs Temp Pulse Resp BP Pulse Ox 97.8 F 93 18 123/61 H 91 02/02/19 17:04 02/02/19 17:04 02/02/19 17:04 02/02/19 17:04 02/02/19 17:04 Oxygen Flow Rate (L/min) 3 Oxygen Delivery Method Room Air Weight: 69.2 kg Body Mass Index (BMI) 29.7 Intake and Output for Last 24 Hours 02/02/19 02/03/19 02/04/19 23:59 23:59 23:59 Intake Total 240 / 240 Balance 240 / 240 Microbiology Past 72 Hours 01/31/19 21:20 Blood Culture (Wb) #2 - Right Hand Blood Culture - Preliminary No growth in 48 hours. 01/31/19 21:10 Blood Culture (Wb) - Left Hand Blood Culture - Preliminary No growth in 48 hours. Discharge Activity: Return to Normal Activity Weight Bearing Status: Full weight bearing Home Medications: Medications to take at Discharge Digoxin [Lanoxin] 250 mcg PO DAILY #30 tab 04/29/14 Furosemide [Lasix] 20 mg PO DAILY #30 tab 04/29/14 Losartan Potassium [Cozaar] 50 mg PO DAILY 04/16/15 Spironolactone [Aldactone] 25 mg PO DAILY 04/16/15 albuterol sulfate 90 mcg/actuation aerosol inhaler 2 puff INHALATION Q4H PRN 06/30/17 atorvastatin 40 mg tablet 40 mg PO QDAY 06/30/17 carvedilol 12.5 mg tablet 12.5 mg PO BID 06/30/17 Albuterol Aerosols [Ventolin Aerosols] 2.5 mg INHALATION Q4HWA.RT 12/10/17 Levothyroxine [Synthroid] 25 mcg PO DAILY 12/10/17 Paroxetine HCl [Paxil] 40 mg PO DAILY 12/10/17 Tamsulosin HCl [Flomax] 0.4 mg PO QHS 12/10/17 Home Oxygen 3 lpm INHALATION DAILY PRN 09/23/18 Oxycodone [Oxyir] 5 - 10 mg PO Q6H PRN PRN 7 Days #15 tab 02/02/19 Following Prescrptions Were Given to Patient: Oxycodone [Oxyir] 5 - 10 mg PO Q6H PRN PRN 7 Days #15 tab PRN Reason: Pain Score 1-11/25 Transmission Status: Sent to [facility] Primary Care Physician: Carlos Ross Chi, MD [Primary Care Provider] - Please Follow Up With: Carlos Ross Chi, MD Please Follow Up With: Cade Phipps MD When: call for appointment for next Thursday [phone] Disposition: Home Minutes spent on discharge:: 31 Patient Condition:: Stable Medical Necessity - Tobacco Use Smoking Status: Former smoker Tobacco Use: Cigarettes Meaningful Use Info Meaningful Use Diagnoses (Choose all that apply): None applicable Code Visit Inpatient E&M: 74531 Disch Hosp
== END 2019-02-02 17:36 | disposition home or self-care (01) | DRG 191 ==
LOC: ED 20:44 → PCU 23:54
PROVIDERS: Surgery; Admitting Provider Family Medicine; Emergency Provider Emergency Medicine; Family Provider Family Medicine Geriatric Medicine; PCP Family Medicine Geriatric Medicine; Visit Provider Internal Medicine
DX: J44.1 Chronic obstructive pulmonary disease with (acute) exacerbation (principal); B15.9 Hepatitis A without hepatic coma; J96.11 Chronic respiratory failure with hypoxia; I50.22 Chronic systolic (congestive) heart failure; I42.0 Dilated cardiomyopathy; Z87.891 Personal history of nicotine dependence; E78.5 Hyperlipidemia, unspecified; Z99.81 Dependence on supplemental oxygen; Z95.810 Presence of automatic (implantable) cardiac defibrillator; I11.0 Hypertensive heart disease with heart failure; I34.0 Nonrheumatic mitral (valve) insufficiency; I45.10 Unspecified right bundle-branch block
CPT/HCPCS: 36415; 71046; 74177; 76705; 80053; 80074; 81001; 83605; 83690; 85025; 87040; 87804; 93005; 94640; 97802; 97803; 99251; 99285; J7030; Q9967; A4216; G0463; J2405

== ENCOUNTER 2019-03-01 20:09 | Inpatient (IN) | payer MEDICARE, MEDICAID, SELFPAY ==
[2019-02-01 00:28] VITALS: BMI 29.7
[2019-03-01] VITALS (11 sets, daily range): BP systolic 131–176; BP diastolic 63–96; PULSE 111–139; RESP 20–29; TEMP 36.2–37.9; O2SAT 90–96; BMI 29.3
--- NOTE | 2019-03-01 20:27 | EKG12_ITS ---
Test Reason : SOB Blood Pressure : / mmHG Vent. Rate : 132 BPM Atrial Rate : 132 BPM P-R Int : 122 ms QRS Dur : 132 ms QT Int : 326 ms P-R-T Axes : 077 031 104 degrees QTc Int : 483 ms Sinus tachycardia Left bundle branch block Abnormal ECG Confirmed by TOSHA SPENCER, CHRISTIANO ([id number]), writer editor EKE CAIN ([id number]) on 03/04/2019 9:58:18 AM Referred By: Maritza Mason Confirmed By:MELANI GIVENS MD
[2019-03-01] MEDS: Ipratropium/Albuterol Sulfate 3 ML AMPUL.NEB INHALATION ×2 (20:33→23:55)
[2019-03-01] MEDS: Albuterol 2.5 MG/3 ML VIAL.NEB. INHALATION (20:35)
[2019-03-01] MEDS: MethylPREDNISolone 125 MG/2 ML Vial 60 MG IV (20:45)
[2019-03-01 20:51] LABS: Absolute Lymphocyte Count 3.11 X10^3/uL (0.83-4.51); Absolute Neutrophil Count 7.7 X10^3/uL (2.0-7.7); Basophil# 0.04 X10^3/uL; Basophil% 0.3 % (0-1); Eosinophil# 0.04 X10^3/uL; Eosinophils% 0.3 % (0-5); Hemoglobin 12.9 g/dL (12.0-15.0); Lymphocyte # 3.11 X10^3/ul (4.0); Lymphocyte % 25.8 % (19-41); Mean Corp Hgb Conc 30.7 g/dL (32-36); Mean Corpuscular Volume 91.1 fL (81-99); Monocyte# 1.12 X10^3/uL; Monocyte% 9.3 % (0-10); NRBC Flagged by Analyzer 0 % (0-5); Neutrophil # 7.66 X10^3/uL (2.7-7.7); Neutrophil % 63.7 % (47-70); Platelet Count 357 K/mm3 (150-450); RBC Distribution Width CV 16.3 % (11.6-14.6); RBC Distribution Width SD 54.6 fl (35.1-43.9); Red Blood Count 4.61 M/mm3 (4.2-5.4)
--- NOTE | 2019-03-01 21:00 | RAD_ITS ---
STUDY: X-RAY CHEST REASON FOR EXAM: Female, 58 years old. Chest pain TECHNIQUE: PA and lateral views of the chest COMPARISON: X-Ray Chest January 31, 2019 FINDINGS: Left chest pacemaker is present. COPD changes are present. The lungs are clear. There are no significant pleural effusions. There is no pneumothorax. The heart is normal in size. The visualized osseous structures are within normal limits. RAD/Chest PA and Lateral IMPRESSION: No acute thoracic pathology. COPD. Electronically Signed: Memo Hammond, at 21:27 EST Tel , Service support ,
[2019-03-01 21:11] LABS: Anion Gap 5 (5-15); BUN 14 mg/dL (7-18); BUN/Creat Ratio 25.4 RATIO (10-20); Calcium,Total 9.2 mg/dL (8.5-10.1); Chloride 100 mmol/L (98-107); Creatinine, Serum 0.55 mg/dL (0.55-1.02); EST Glomerular Filtration Rate 119 mL/min (>60); Est Glom Filt Rate - Afr Amer 144 mL/min (>60); Estimated Creatinine Clearance 78.13 ml/min; Glucose 152 mg/dL (74-106); Potassium 4.1 mmol/L (3.5-5.1); Sodium Level 135 mmol/L (136-145)
[2019-03-01 21:29] LABS: Lactic Acid 1.1 mmol/L (0.4-1.9)
--- NOTE | 2019-03-01 21:48 | ED.RN ---
pt wanted me to call her daughter cristogia for her to call er back.
--- NOTE | 2019-03-01 22:05 | ED.VISSUMM ---
- ER Visit Summary Date of Service: 03/01/19 Chief Complaint: Shortness of breath History of Present Illness: The patient is a 58 F who presents with shortness of breath that has been getting worse over the past 2 days. Patient states it is hard to breathe. Patient states nothing makes it better or worse. Patient states she is coughing up some thick white sputum. Patient is normally on oxygen at home at 3 L/min. Patient has not had to increase her oxygen at home. Patient states she feels like she has upper respiratory congestion with rhinorrhea and a sore throat. Patient denies any fevers or chills. Patient has a history of COPD and CHF. Physical Examination: Vital signs are stable except for tachycardia of 139 and a tachypnea of 29. Patient is afebrile here. Patient is in mild respiratory distress. Oral mucosa is pink and moist. Neck is supple. Trachea is midline. There is no JVD. Heart was regular and tachycardic. Lungs were diminished bilaterally with expiratory wheezing. Abdomen is soft. Bowel sounds are normal. There is no tenderness. Cranial nerves II through XII are intact. There are no focal motor or sensory deficits noted. Extremities were intact. There is no calf tenderness or edema. Test Results: EKG showed sinus tachycardia with a rate of 132. There is a left bundle branch block pattern noted. This was unchanged compared to previous EKG dated 01/31/2019. PA and lateral chest x-ray was obtained. There are chronic changes. There is no acute process. This was interpreted by the radiologist and myself. CBC shows a mild leukocytosis of 12.0. Basic metabolic profile was within normal limits. Troponin was elevated at 0.575. Lactate was normal. Influenza swabs were negative. Emergency Department Course and Treatment: Patient was given a DuoNeb aerosol here. Patient was given a dose of Solu-Medrol here. Patient had improvement of her breathing but still felt short of breath. Patient was given a repeat albuterol here. Patient was given aspirin. Case was discussed with the hospitalist. She will be in to evaluate the patient and admit the patient to her service. Patient understood and was agreeable with the plan. All questions were answered. Disposition: Admit to hospital Impression: 1. COPD exacerbation 2. Elevated troponin This note was generated with [employer] software. It may contain incorrect words, spelling, and punctuation that were not noted in review of the chart prior to signing ED Disposition - Plan for ED Patient: Disposition: Acute Care Hospital [facility] Diagnosis: COPD exacerbation, Elevated troponin Referrals: Carlos Ross Chi, MD [Primary Care Provider] -
--- NOTE | 2019-03-01 22:16 | HP.PCM_ITS ---
Problem List (1) Sepsis Status: Acute Qualifiers: Sepsis type: sepsis due to unspecified organism Sepsis acute organ dysfunction status: unspecified Qualified Code(s): A41.9 - Sepsis, unspecified organism (2) Acute and chronic respiratory failure with hypoxia Status: Acute (3) COPD exacerbation Status: Acute (4) Elevated troponin Status: Acute (5) Hyperglycemia Status: Acute (6) Hepatitis A Status: Chronic Qualifiers: Hepatic coma status: without hepatic coma Qualified Code(s): B15.9 - Hepatitis A without hepatic coma (7) Former tobacco use Status: Chronic (8) Essential hypertension Status: Chronic (9) Obesity (BMI 30.0-34.9) Status: Chronic (10) Cardiomyopathy, dilated Status: Chronic (11) Chronic systolic congestive heart failure Status: Chronic (12) Atherosclerotic heart disease of [place] coronary artery without angina pectoris Status: Chronic Qualifiers: [place] vs. transplanted heart: unspecified whether [place] or transplanted heart Qualified Code(s): I25.10 - Atherosclerotic heart disease of [place] coronary artery without angina pectoris History of Present Illness Date of Admission: 03/01/19 Chief Complaint: Dyspnea, Cough The patient is a 58 y/o F w/ PMHx: Chronic Systolic CHF s/p ACID/pacemaker placement, Dilated Cardiomyopathy, Depression and Anxiety, HTN, HLD, Obesity, Chronic Hypoxic Respiratory Failure w/ COPD (2.5-3L NC), Former Tobacco use, recent 02/02/19 discharge from [facility] following evaluation/treatment with dx Hepatitis A who presents to the [facility] ED on 03/01/19 with history of dyspnea, wheezing, moderately productive cough without fever or chills x 3 days with progressively worsening malaise, fatigue, poor oral intake prompting ED presentation. She denies any specific chest pain. Work-up in the ED included T 97.2, heart rate 139, BP 176/96 initially with improvement to 154/73, respiratory rate 29, 96% on 3 L nasal cannula, CBC with WBC 12, hemoglobin 12.9, platelet 357 without shift, BMP with sodium 135, glucose 152, lactic acid 1.1, troponin 0.575, EKG with sinus tachycardia with left bundle branch block known from prior, rapid influenza negative, blood culture x2 pending per ED, chest x- ray with no acute cardiopulmonary findings with chronic COPD changes. In the ED patient administered Solu-Medrol 60 mg IV x1, aspirin 324 mg p.o. x1 as well as DuoNeb and albuterol therapies. Past Medical History Past Medical History (Chronic Problems): Chronic Problems (Last Reviewed 09/23/18 @ 15:41 by Renetta Almodovar) Hepatitis A (Chronic) Former tobacco use (Chronic) Essential hypertension (Chronic) Obesity (BMI 30.0-34.9) (Chronic) RBBB (right bundle branch block) (Chronic) Hyperlipidemia (Chronic) Cardiomyopathy, dilated (Chronic) Nonrheumatic mitral valve regurgitation (Chronic) Chronic systolic congestive heart failure (Chronic) Biventricular automatic implantable cardioverter defibrillator in situ (Chronic ~01/05/15) RV lead implantation complicated by tamponade -pericardiocentesis done 01/05/15 Atherosclerotic heart disease of [place] coronary artery without angina pectoris (Chronic) Ventricular tachycardia (Chronic) Medical History: Medical History (Last Reviewed 09/23/18 @ 15:41 by Renetta Almodovar) COPD exacerbation (Acute) J44.1 Obesity (BMI 30.0-34.9) (Chronic) E66.9 Cardiac tamponade (Acute) I31.4 RBBB (right bundle branch block) (Chronic) I45.10 Hyperlipidemia (Chronic) E78.5 Cardiomyopathy, dilated (Chronic) I42.0 Nonrheumatic mitral valve regurgitation (Chronic) I34.0 Chronic systolic congestive heart failure (Chronic) I50.22 Biventricular automatic implantable cardioverter defibrillator in situ (Chronic) Onset Date: ~01/05/15 Z95.810 RV lead implantation complicated by tamponade -pericardiocentesis done 01/05/15 Atherosclerotic heart disease of [place] coronary artery without angina pectoris (Chronic) I25.10 Ventricular tachycardia (Chronic) I47.2 Anxiety F41.9 COPD (chronic obstructive pulmonary disease) J44.9 Depression F32.9 Allergies acetaminophen [From Vicodin] Allergy (Verified 01/31/19 20:26) Hives hydrocodone bitartrate [From Vicodin] Allergy (Verified 01/31/19 20:26) Hives Penicillins Allergy (Verified 01/31/19 20:26) Anaphylaxis Home Medications: Ambulatory Orders Medication Instructions Recorded Losartan Potassium [Cozaar] 50 mg PO DAILY 04/16/15 Spironolactone [Aldactone] 25 mg PO DAILY 04/16/15 albuterol sulfate 90 mcg/actuation 2 puff INHALATION Q4H PRN 06/30/17 aerosol inhaler atorvastatin 40 mg tablet 40 mg PO QDAY 06/30/17 carvedilol 12.5 mg tablet 12.5 mg PO BID 06/30/17 Albuterol Aerosols [Ventolin 2.5 mg INHALATION Q4HWA.RT 12/10/17 Aerosols] Levothyroxine [Synthroid] 25 mcg PO DAILY 12/10/17 Paroxetine HCl [Paxil] 40 mg PO DAILY 12/10/17 Tamsulosin HCl [Flomax] 0.4 mg PO QHS 12/10/17 Home Oxygen 3 lpm INHALATION DAILY PRN 09/23/18 Budesonide/Formoterol 160/4.5 2 puff INHALATION BID 03/01/19 [Symbicort 160/4.5 Mcg Inhaler (SP)] Digoxin [Lanoxin] 250 mcg PO DAILY 03/01/19 Furosemide [Lasix] 20 mg PO DAILY 03/01/19 Surgical History: Surgical History (Last Reviewed 09/23/18 @ 15:41 by Renetta Almodovar) History of tubal ligation Z98.51 Status post pericardiocentesis Z98.890 Surgical History: - - x 2, hysterectomy, AICD/pacemaker placement. 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 Tobacco Use: Non-smoker Alcohol: None Drugs: None - *Family History Maternal Family History: Family History (Last Reviewed 09/23/18 @ 15:41 by Renetta Almodovar) Father CAD (coronary artery disease) Hypertension Mother CAD (coronary artery disease) Hypertension Diabetes Brother CAD (coronary artery disease) History Items: Diabetes, Heart Disease, Hypertension Paternal Family History: Family History (Last Reviewed 09/23/18 @ 15:41 by Renetta Almodovar) Father CAD (coronary artery disease) Hypertension Mother CAD (coronary artery disease) Hypertension Diabetes Brother CAD (coronary artery disease) History Items: Heart Disease, Hypertension Review of Systems Constitutional: Reports: Anorexia, Malaise, Weakness, Fatigue. Denies: Chills, Fever, Weight Change HEENT: Reports: Head Aches, Nasal Congestion, Sinus Congestion. Denies: Sinus Drainage Cardiovascular: Denies: Chest Pain, Palpitations Respiratory: Reports: Cough, Shortness of Breath, Shortness of breath at rest, Shortness of breath upon exertion, Sputum production, Wheezing Gastrointestinal: Reports: Nausea. Denies: Abdominal Pain, Vomiting Genitourinary: Denies: Dysuria Musculoskeletal: Reports: Joint Pain, Muscle pain. Denies: Joint Tenderness Skin: Denies: Rash, Wounds Neurological: Denies: Numbness, Tingling, Focal weakness Psychiatric: Reports: Anxiety, Depression. Denies: Homicidal Ideations, Suicidal Ideations Hematologic/ Lymphatic: Reports: Easy Bruising, Easy Bleeding VTE Information - Inpt Only VTE Present on Admission: No VTE Mechan Device Prophylaxis: SCD's VTE Pharm Prophylaxis ordered?: Yes Patient Problems: Active and Suspected Problems (Last Reviewed 09/23/18 @ 15:41 by Renetta Almodovar) Elevated troponin (Acute) Hyperglycemia (Acute) Acute and chronic respiratory failure with hypoxia (Acute) Sepsis (Acute) COPD exacerbation (Acute) Subjective: Seated upright in ED bed, fatigued and ill-appearing, still ongoing mild tachycardia, increased respiratory rate, but improved since initial presentation. Objective: Physical Examination: General: awake, alert, oriented x 3 and cooperative, seated upright in the ED bed, fatigued, ill-appearing. Skin: normal color, turgor, no icterus, cyanosis. HEENT: AT/NC, EOMI, PERRLA, dry MM, no carotid bruits or JVD noted. Lungs: Diffusely diminished breath sounds bilaterally, mild effort, harsh dry cough, occasional soft end expiratory wheezing but primarily mostly diminished, no rhonchi or rales. Heart: Echocardiac with regular rhythm; no gallop, rub audible. Abdomen: soft, obese, NTTP, ND, normal BS, no HSM. Extremities: no cyanosis, clubbing, or edema. Neurological: patient awake, alert, oriented x 3; cognitive function intact; pupils equally reactive to light and accomodation; cranial nerves II-XII grossly normal, moving all 4 extremities, no focal deficits, strength severely globally decreased secondary to acute presentation. Psychiatric: affect appears fatigued, ill-appearing, no acute evidence of depressive or anxiety feelings. - Physical Exam Vitals/I&O's: Vital Signs Temp Pulse Resp BP Pulse Ox 97.6 F L 127 H 28 H 154/73 H 96 03/01/19 21:23 03/01/19 21:23 03/01/19 21:23 03/01/19 21:23 03/01/19 21:23 Oxygen Flow Rate (L/min) 4 Oxygen Delivery Method Nasal Cannula Weight: 153 lb 14.122 oz Body Mass Index (BMI) 30.0 Microbiology Past 72 Hours 03/01/19 20:37 Mucosa - Nasopharyngeal Influenza Types A,B Direct FA (ANGELES) - Final Laboratory Results 03/01/19 20:15: WBC 12.0 H, RBC 4.61, Hgb 12.9, Hct 42.0, MCV 91.1, MCH 28.0, MCHC 30.7 L, RDW Std Deviation 54.6 H, RDW Coeff of Siobhan 16.3 H, Plt Count 357, MPV 9.0, Immature Gran % (Auto) 0.600, Neut % (Auto) 63.7, Lymph % (Auto) 25.8, Mower % (Auto) 9.3, Eos % (Auto) 0.3, Baso % (Auto) 0.3, Absolute Neuts (auto) 7.7, Absolute Lymphs (auto) 3.11, Nucleated RBC % 0 03/01/19 20:15: Sodium 135 L, Potassium 4.1, Chloride 100, Carbon Dioxide 30.0, Anion Gap 5, BUN 14, Creatinine 0.55, Estim Creat Clear Calc 78.13, Est GFR (MDRD) Af Amer 144, Est GFR (MDRD) Non-Af 119, BUN/Creatinine Ratio 25.4 H, Glucose 152 H, Calcium 9.2, Troponin I 0.575 H 03/01/19 20:40: Lactic Acid 1.1 Assessment/Plan All Active Problems (Last Reviewed 09/23/18 @ 15:41 by Renetta Almodovar) Elevated LFTs (Acute) Elevated troponin (Acute) Hyperglycemia (Acute) Acute and chronic respiratory failure with hypoxia (Acute) Sepsis (Acute) COPD exacerbation (Acute) Cardiac tamponade (Acute) The patient is a 58 y/o F w/ PMHx: Chronic Systolic CHF s/p ACID/pacemaker placement, Dilated Cardiomyopathy, Depression and Anxiety, HTN, HLD, Obesity, Chronic Hypoxic Respiratory Failure w/ COPD (2.5-3L NC), Former Tobacco use, recent 02/02/19 discharge from [facility] following evaluation/treatment with dx Hepatitis A who presents to the [facility] ED on 03/01/19 with history of dyspnea, wheezing, moderately productive cough without fever or chills x 3 days with progressively worsening malaise, fatigue, poor oral intake prompting ED presentation. 1. Acute Sepsis secondary to Acute on Chronic COPD exacerbation with Acute on Chronic Hypoxic Respiratory Failure: Patient with increased work of breathing, accessory muscle usage, some conversational dyspnea upon initial ED presentation, improved with aerosols. CXR w/ chronic changes, CBC on admission w/ WBC elevation but no marked L shift, but tachycardic, increased work of breathing w/ accessory muscle usage, requiring increased oxygen from baseline. Will admit to PCU given #2 concurrently, maintain on oxygen with wean as tolerated to home oxygen supplementation, continue ATC duonebs, PRN albuterol, IV methylprednisolone, HOB, IS parameters, initiate IV doxycycline, obtain respiratory viral panel and sputum cultures. Given recurrent presentations may consider pulmonary consultation, previously seen Dr. Wallace and follows with an outpatient. 2. Indeterminate cardiac enzyme: EKG in ED with sinus tachycardia with left bundle branch block with no acute evidence of ischemia, CXR w/ chronic COPD changes, initial trop elevated, 0.575. Will place on a monitored bed to assure no acute myocardial infarction with serial cardiac enzymes and EKGs. Will request ECHO. SHANNAN SOTOMAYOR. Will request cardiology consultation. FLP in AM. Mag pending. Therapeutic lovenox pending enzyme trending. 3. Hyperglycemia: Admission glucose 152, will obtain HgBA1c. 4. Recent hepatitis A, acute infection: Patient evaluated and treated 01/31/2019-02/02/2019 with eventual diagnosis hepatitis A, notes improved from that until she became recently ill as noted #1, will obtain hepatic profile to assure improving functions. 5. Chronic Systolic CHF, Dilated Cardiomyopathy: s/p AICD/pacemaker placement, following w/ Dr. Yeboah, maintain on asa, spironolactone, losartan, Lasix, digoxin, Coreg, statin. Judiciously hydrating given acute presentation as noted #1 with notable tachycardia, suspected secondary to aerosols and dehydration. 6. Hypertension: Continue home regimen including Loly lactone, losartan, Lasix, Coreg, PRN hydralazine. 7. Hyperlipidemia: Continue home statin regimen. 8. Obesity: Weight loss and lifestyle changes encouraged. 9. Former Tobacco use: Encourage continued cessation. 10. Obesity: Weight loss and lifestyle changes encouraged. 11. Anxiety and Depression: Maintain on home paxil regimen. 12. DVT Prophylaxis: SCDs, therapeutic lovenox pending cardiac enzyme trending. 13. CODE status: Patient's [id number] Shira is her healthcare power of service station operator and she notes she does have a living will in place. Discussed CODE status at length including difference between FULL code, DNR-CCA and DNR-CC status. Following discussions about the differences in these status, requested Full Code status. Advanced Care Planning Face to Face Time: 16 minutes. Code Visit Inpatient E&M: 59605 Init Hosp L3 Procedures: 03743 Advncd Care Plan 30 Min
[2019-03-01] MEDS: Aspirin 81 MG TAB.CHEW 324 MG PO (22:41)
[2019-03-02] VITALS (13 sets, daily range): BP systolic 113–143; BP diastolic 42–73; PULSE 81–114; RESP 18–22; TEMP 36.2–37.8; O2SAT 94–97; BMI 29.3
[2019-03-02] LABS: AST(SGOT) 284 U/L (15-37); Alanine Aminotransfer ALT/SGPT 568 U/L (13-56); Albumin, Serum 3.4 g/dL (3.2-5.0); Alkaline Phosphatase 286 U/L (45-117); Bilirubin, Direct 0.31 mg/dL (0.00-0.30); Globulin 4.7 g/dL (2.2-4.2); Magnesium 1.9 mg/dL (1.6-2.6); Protein, Total 8.1 g/dL (6.4-8.2)
[2019-03-02] MEDS: Acetaminophen 325 MG Tablet 650 MG PO ×2 (00:53→09:43)
[2019-03-02] MEDS: 0.9% Saline Lock 10 ML Syringe IV ×7 (00:55→21:59)
[2019-03-02] MEDS: Enoxaparin 80 MG/0.8 ML Syringe 70 MG SC ×3 (01:14→21:56)
[2019-03-02] MEDS: 0.9% Normal Saline 1,000 ML 100 ML IV (01:16)
[2019-03-02 02:49] LABS: Absolute Lymphocyte Count 1.42 X10^3/uL (0.83-4.51); Absolute Neutrophil Count 8.8 X10^3/uL (2.0-7.7); Basophil# 0.02 X10^3/uL; Basophil% 0.2 % (0-1); Eosinophil# 0.17 X10^3/uL; Eosinophils% 1.6 % (0-5); Hematocrit 40.1 % (37-47); Hemoglobin 12.3 g/dL (12.0-15.0); Lymphocyte # 1.42 X10^3/ul (4.0); Lymphocyte % 13.2 % (19-41); Mean Corp Hgb Conc 30.7 g/dL (32-36); Mean Corpuscular Hgb 27.8 pg (27.0-32.0); Mean Corpuscular Volume 90.5 fL (81-99); Mean Platelet Vol. 8.7 fl (6.2-12.0); Monocyte# 0.27 X10^3/uL; Monocyte% 2.5 % (0-10); NRBC Flagged by Analyzer 0 % (0-5); Neutrophil # 8.79 X10^3/uL (2.7-7.7); Neutrophil % 81.9 % (47-70); POSITIVE MORPHOLOGY YES; Platelet Count 290 K/mm3 (150-450); RBC Distribution Width CV 16.3 % (11.6-14.6); RBC Distribution Width SD 54.4 fl (35.1-43.9); Red Blood Count 4.43 M/mm3 (4.2-5.4); White Blood Count 10.7 K/mm3 (4.4-11.0)
[2019-03-02 02:54] LABS: Differential Indicated SCAN CRITERIA MET
[2019-03-02 03:08] LABS: Hemoglobin A1c 5.5 % (4.2-6.3)
[2019-03-02 03:29] LABS: Anisocytosis 1+; Hypochromasia 2+; Platelet Estimate ADEQUATE (ADEQ); Reactive Lymphocyte RARE
[2019-03-02 03:34] LABS: Anion Gap 3 (5-15); BUN 15 mg/dL (7-18); BUN/Creat Ratio 25.2 RATIO (10-20); Calcium,Total 8.6 mg/dL (8.5-10.1); Chloride 100 mmol/L (98-107); Cholesterol 107 mg/dL (200); EST Glomerular Filtration Rate 109 mL/min (>60); Est Glom Filt Rate - Afr Amer 132 mL/min (>60); Estimated Creatinine Clearance 71.62 ml/min; Glucose 279 mg/dL (74-106); High Density Lipoprotein 13 mg/dL; Potassium 3.7 mmol/L (3.5-5.1); Sodium Level 134 mmol/L (136-145); Triglycerides 100 mg/dL; Very Low Density Lipoprotein 20 mg/dL (5-40)
--- NOTE | 2019-03-02 05:55 | EKG12_ITS ---
Test Reason : AM EKG Blood Pressure : / mmHG Vent. Rate : 089 BPM Atrial Rate : 089 BPM P-R Int : 116 ms QRS Dur : 128 ms QT Int : 450 ms P-R-T Axes : 065 -56 097 degrees QTc Int : 547 ms Atrial-sensed ventricular-paced rhythm with occasional AV dual-paced complexes and with occasional Pr emature ventricular complexes Biventricular pacemaker detected Abnormal ECG When compared with ECG of 31-JAN-2019 20:53, Premature ventricular complexes are now Present Vent. rate has decreased BY 7 BPM Confirmed by HEIDI MORENO ([id number]), editorial clerk KEE CAIN ([id number]) on 03/03/2019 8:50:57 AM Referred By: Maritza Mason Confirmed By:HEIDI MORENO
[2019-03-02] MEDS: Levothyroxine 25 MCG TABLET PO (06:15)
[2019-03-02] MEDS: Ipratropium/Albuterol Sulfate 3 ML AMPUL.NEB INHALATION ×4 (07:22→19:43)
--- NOTE | 2019-03-02 07:44 | CON.PCM_ITS ---
Problem List (1) NSTEMI (non-ST elevated myocardial infarction) Status: Acute (2) Elevated troponin Status: Acute (3) Cardiomyopathy, dilated Status: Chronic (4) Chronic systolic congestive heart failure Status: Chronic (5) Nonrheumatic mitral valve regurgitation Status: Chronic (6) Ventricular tachycardia Status: Chronic (7) Biventricular automatic implantable cardioverter defibrillator in situ Status: Chronic Comment: RV lead implantation complicated by tamponade - pericardiocentesis done 01/05/15 (8) Hyperlipidemia Status: Chronic Qualifiers: (9) Essential hypertension Status: Chronic (10) COPD exacerbation Status: Acute Reason for Consult Date of Consultation: 03/02/19 History of Present Illness: The patient is a 58 year old white female with a past cardiovascular history which has included underlying non-CAD related cardiomyopathy, left bundle branch block, chronic systolic mediated CHF, a biventricular ICD placed at [facility] on 01-05-15, right ventricular lead implantation perforation resulting in a pericardial effusion and subsequent cardiac compromise physiology requiring pericardiocentesis, who is referred for evaluation of abnormal cardiac enzymes compatible non-ST segment elevation ME in the setting of fever, chills, cough, and concerns of an acute respiratory event/COPD exacerbation. She states she has been feeling ill recently and developing a cold . She elected based upon her symptoms to present to the hospital for further evaluation and care. There were concerns of an underlying acute COPD event. However she was found to have abnormal troponin I levels. She has undergone additional evaluation with a transthoracic echocardiogram. The results are as noted below. She has denied ongoing chest discomfort classic for angina pectoris. There is been no acute orthopnea or PND. She has denied peripheral pitting edema. There is been no near syncope or syncope or ICD discharges that she is aware of. [] Past Medical History Allergies/Adverse Reactions: Allergies acetaminophen [From Vicodin] Allergy (Verified 01/31/19 20:26) Hives hydrocodone bitartrate [From Vicodin] Allergy (Verified 01/31/19 20:26) Hives Penicillins Allergy (Verified 01/31/19 20:26) Anaphylaxis Home Medications: Ambulatory Orders Medication Instructions Recorded Losartan Potassium [Cozaar] 50 mg PO DAILY 04/16/15 Spironolactone [Aldactone] 25 mg PO DAILY 04/16/15 albuterol sulfate 90 mcg/actuation 2 puff INHALATION Q4H PRN 06/30/17 aerosol inhaler atorvastatin 40 mg tablet 40 mg PO QDAY 06/30/17 carvedilol 12.5 mg tablet 12.5 mg PO BID 06/30/17 Albuterol Aerosols [Ventolin 2.5 mg INHALATION Q4HWA.RT 12/10/17 Aerosols] Levothyroxine [Synthroid] 25 mcg PO DAILY 12/10/17 Paroxetine HCl [Paxil] 40 mg PO DAILY 12/10/17 Tamsulosin HCl [Flomax] 0.4 mg PO QHS 12/10/17 Home Oxygen 3 lpm INHALATION DAILY PRN 09/23/18 Budesonide/Formoterol 160/4.5 2 puff INHALATION BID 03/01/19 [Symbicort 160/4.5 Mcg Inhaler (SP)] Digoxin [Lanoxin] 250 mcg PO DAILY 03/01/19 Furosemide [Lasix] 20 mg PO DAILY 03/01/19 Past Medical History (Chronic Problems): Chronic Problems (Last Reviewed 09/23/18 @ 15:41 by Renetta Almodovar) Hepatitis A (Chronic) Former tobacco use (Chronic) Essential hypertension (Chronic) Obesity (BMI 30.0-34.9) (Chronic) RBBB (right bundle branch block) (Chronic) Hyperlipidemia (Chronic) Cardiomyopathy, dilated (Chronic) Nonrheumatic mitral valve regurgitation (Chronic) Chronic systolic congestive heart failure (Chronic) Biventricular automatic implantable cardioverter defibrillator in situ (Chronic ~01/05/15) RV lead implantation complicated by tamponade -pericardiocentesis done 01/05/15 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 - *Family History Maternal Family History: Family History (Last Reviewed 09/23/18 @ 15:41 by Renetta Almodovar) Father CAD (coronary artery disease) Hypertension Mother CAD (coronary artery disease) Hypertension Diabetes Brother CAD (coronary artery disease) History Items: Diabetes, Heart Disease, Hypertension Paternal Family History: Family History (Last Reviewed 09/23/18 @ 15:41 by Renetta Almodovar) Father CAD (coronary artery disease) Hypertension Mother CAD (coronary artery disease) Hypertension Diabetes Brother CAD (coronary artery disease) History Items: Heart Disease, Hypertension Lives: Alone Smoking Status: Former smoker Tobacco Use: Non-smoker Alcohol: None Drugs: None Review of Systems - Review of Systems General: Reports: Fever. Denies: Fatigue, Night Sweats Cardiovascular: Reports: Shortness of Breath. Denies: Chest Discomfort, Orthopnea, PND, Peripheral Edema, Palpitations, Lightheadedness, Dizziness, Near Syncope, Syncope Respiratory: Reports: Cough, Shortness of Breath. Denies: Sputum Production, Hemoptysis Gastrointestinal: Denies: Hematemesis, Hematochezia, Melena Genitourinary: Denies: Dysuria, Hematuria Subjectve: This is a 58-year-old white female who appears to be resting reasonably comfortably at the moment in no acute distress. Objective: Vital Signs Temp Pulse Resp BP Pulse Ox 97.1 F L 85 22 H 113/42 L 96 03/02/19 06:10 03/02/19 06:10 03/02/19 06:10 03/02/19 06:10 03/02/19 06:10 Oxygen Flow Rate (L/min) 8 Oxygen Delivery Method Venturi Mask Weight: 149 lb 14.629 oz Body Mass Index (BMI) 29.3 Intake and Output for Last 24 Hours 02/28/19 03/01/19 03/02/19 23:59 23:59 23:59 Intake Total 511.67 / 511.67 Balance 511.67 / 511.67 General: Awake, Alert, Oriented x 3, Cooperative, No Acute Distress HEENT: Atraumatic, Normocephalic, PERRL, EOMI, Sclera Non Icteric Oral: Moist Mucosa Neck: Supple, Good ROM, No JVD Lungs: Rhonchi Cardiovascular: Regular Rhythm, Normal S1, Normal S2 Abdomen: Bowel Sounds Present, Soft, Non Tender Extremities: No edema Psych/Mental Status: Appropriate 03/01/19 20:15: WBC 12.0 H, RBC 4.61, Hgb 12.9, Hct 42.0, MCV 91.1, MCH 28.0, MCHC 30.7 L, Plt Count 357, MPV 9.0, Immature Gran % (Auto) 0.600, Neut % (Auto) 63.7, Lymph % (Auto) 25.8, [place] % (Auto) 9.3, Eos % (Auto) 0.3, Baso % (Auto) 0.3, Absolute Neuts (auto) 7.7, Nucleated RBC % 0 03/01/19 20:15: Sodium 135 L, Potassium 4.1, Chloride 100, Carbon Dioxide 30.0, Anion Gap 5, BUN 14, Creatinine 0.55, Est GFR (MDRD) Af Amer 144, Est GFR (MDRD) Non-Af 119, BUN/Creatinine Ratio 25.4 H, Glucose 152 H, Calcium 9.2, Troponin I 0.575 H 03/01/19 20:15: Magnesium 1.9, Total Bilirubin 0.60, Direct Bilirubin 0.31 H 03/01/19 20:40: Lactic Acid 1.1 03/01/19 23:47: Troponin I 1.380 H* 03/02/19 02:30: WBC 10.7, RBC 4.43, Hgb 12.3, Hct 40.1, MCV 90.5, MCH 27.8, MCHC 30.7 L, Plt Count 290, MPV 8.7, Immature Gran % (Auto) 0.600, Neut % (Auto) 81.9 H, Lymph % (Auto) 13.2 L, [place] % (Auto) 2.5, Eos % (Auto) 1.6, Baso % (Auto) 0.2, Absolute Neuts (auto) 8.8 H, Nucleated RBC % 0 03/02/19 02:30: Hemoglobin A1c 5.5 03/02/19 02:30: Sodium 134 L, Potassium 3.7, Chloride 100, Carbon Dioxide 31.0, Anion Gap 3 L, BUN 15, Creatinine 0.60, Est GFR (MDRD) Af Amer 132, Est GFR (MDRD) Non-Af 109, BUN/Creatinine Ratio 25.2 H, Glucose 279 H, Calcium 8.6, Troponin I 1.240 H*, Triglycerides 100, Cholesterol 107, LDL Cholesterol 74, VLDL Cholesterol 20, HDL Cholesterol 13 L Rhythm: Electronic ventricular pacemaker EKG: Electronic ventricular pacemaker ECHO: Interpretation SummaryThe study was technically difficult. Contrast injection was performed. Segmental dysfunction with preserved ejection fraction (see wall motion). The estimated ejection fraction is 55 %. Mild (1+) eccentric mitral valve insufficiency. Trivial tricuspid valve insufficiency. Unable to estimate RV systolic pressure/pulmonary artery pressure due to technically difficult study. Diastolic function is indeterminate. ICD or pacer leads identified within the right atrium ICD or pacer leads identified within the right ventricle. Comment: 2D echocardiographic findings of the left ventricular anatomy appear compatible with a Takotsubo syndrome/stress-induced cardiomyopathy. Stress Test: Cardiac Cath: 04/28/2014 Final impression: 1. Elevated left ventricular end diastolic pressure compatible decreased LV systolic function 2. Secondary pulmonary hypertension 3. Oxygen saturations: No obvious evidence of intracardiac shunting phenomena 4. Left ventricle: A. Dilated B. Severe segmental left ventricular systolic dysfunction C. Estimated LVEF of 15% 5. Left main coronary artery: A. Angiographically normal 6. Left anterior descending coronary artery: A. Proximal minimal luminal irregularities B. First high diagonal branch (small caliber vessel): Ostial 25-50% appearing stenosis 7. Left circumflex coronary artery: A. Angiographically normal 8. Right coronary artery: A. Large dominant vessel B. Minimal luminal irregularities 9. Mitral valve: A. Moderately severe mitral valve regurgitation 10. Left atrium: A. Enlarged CXR: Preliminary evaluation: No acute cardiopulmonary disease process appreciated please see official report thank you Assessment/Plan 1. Non-ST segment elevation ME At the present time she has findings compatible with a non-ST segment elevation ME. Based upon her previous history of a non-CAD related cardiomyopathy this may be a type II event secondary to supply demand mismatch. This may be brought on by her underlying acute pulmonary disease process. Based upon her echocardiographic images there is concerned that she has developed a Takotsubo syndrome/stress-induced cardiomyopathy. At the present time she will continue to be monitored. She will continue medical management as deemed appropriate. Over time, after she has been treated and improved from her acute respiratory event, consideration will be given as to whether or not she requires repeat evaluation in the cardiac catheterization laboratory. 2. Non-CAD related cardiomyopathy Again she has a history of a non-CAD related cardiomyopathy with diminished LV systolic function. This led her to biventricular pacing. At the moment she has echocardiographic findings appearing compatible with a Takotsubo syndrome/stress-induced cardiomyopathy. She does not appear to have evidence of acute on chronic systolic mediated CHF at the moment. She will continue medical management and evaluation as noted above. 3. Chronic systolic mediated CHF Again at the moment she does not appear to have acute on chronic systolic mediated CHF type symptoms. She will need to continue medical therapy with adjustment as deemed appropriate during her acute respiratory course, etc. 4. Mitral valve regurgitation She does have an element of mitral valve regurgitation. She will continue to be followed by history, exam, and echocardiogram as deemed appropriate. 5. Ventricular ectopy/tachycardia She is having no obvious ventricular dysrhythmias at this time. She will continue medical therapy. She does have an ICD in place. 6. Biventricular ICD She does have a biventricular ICD in place. She can have this reassessed as deemed appropriate. 7. Hyperlipidemia She will continue lipid-lowering therapy as deemed appropriate. 8. Hypertension She will continue to have her blood pressure monitor. Her medications can be adjusted as needed. 9. Acute respiratory event/COPD exacerbation She will continue evaluation care per internal medicine. Comment: The patient's case has been discussed and reviewed with the patient and the [facility] staff. This note was generated using a voice recognition system and there may be incorrect words, spelling or punctuation that were not noted when reviewing the office note prior to saving.
[2019-03-02] MEDS: Spironolactone 25 MG Tablet PO (09:45)
[2019-03-02] MEDS: Carvedilol 12.5 MG Tablet PO ×2 (09:45→21:50)
[2019-03-02] MEDS: Aspirin 81 MG TAB.CHEW PO (09:45)
[2019-03-02] MEDS: Losartan Potassium 50 MG Tablet PO (09:45)
[2019-03-02] MEDS: Digoxin 250 MCG Tablet PO (09:46)
[2019-03-02] MEDS: Furosemide 20 MG Tablet PO (09:46)
[2019-03-02] MEDS: Famotidine 20 MG Tablet PO ×2 (09:47→21:50)
[2019-03-02] MEDS: Paroxetine 20 MG Tablet 40 MG PO (09:47)
--- NOTE | 2019-03-02 10:51 | PN_ITS ---
Patient Problems: Active and Suspected Problems (Last Reviewed 09/23/18 @ 15:41 by Renetta Almodovar) Elevated troponin (Acute) Hyperglycemia (Acute) Acute and chronic respiratory failure with hypoxia (Acute) Sepsis (Acute) COPD exacerbation (Acute) Reason for Visit: Patient is short of breath, tachypneic respiratory rate 20 to 22/min, mild tachycardic on 35% FiO2 Ventimask. T-max 100.2 Fahrenheit. Vitals/I&O's: Vital Signs Temp Pulse Resp BP Pulse Ox 98.2 F 103 H 20 H 143/73 H 94 03/02/19 09:36 03/02/19 09:36 03/02/19 09:36 03/02/19 09:36 03/02/19 09:36 Oxygen Flow Rate (L/min) 8 Oxygen Delivery Method Venturi Mask Weight: 149 lb 14.629 oz Body Mass Index (BMI) 29.3 Intake and Output for Last 24 Hours 02/28/19 03/01/19 03/02/19 23:59 23:59 23:59 Intake Total 511.67 / 511.67 Balance 511.67 / 511.67 General: Alert, Oriented x3, Cooperative HEENT: Atraumatic, PERRLA, EOMI, Normocephalic Oral: Dry Mucosa Neck: Supple, No JVD, Negative Carotid Bruits Lungs: Diminished - Air entry is diminished diffusely in all lung mccray. Bilateral rhonchi and wheezing present. Cardiovascular: Regular rate, Normal S1, Normal S2, No murmurs Abdomen: Bowel Sounds Present, Soft, Non Tender, Non-Distended Extremities: Capillary Refill Less than 3 Seconds, Edema - SUBTLE in manual lower legs Skin: No rashes, No breakdown Musculoskeletal: No Tenderness to Palpation of Joints or Extremities, Arthritic Changes Neurological: Cranial nerves II-XII grossly intact, Deep Tendon Reflexes 2+/4 and Symmetrical, Neuro grossly intact Psych/Mental Status: Normal Affect, Appropriate Microbiology Past 72 Hours 03/01/19 23:47 Sputum, Expectorated/Coughed Gram Stain - Preliminary 03/01/19 20:37 Mucosa - Nasopharyngeal Influenza Types A,B Direct FA (ANGELES) - Final Laboratory Results 03/01/19 20:15: WBC 12.0 H, RBC 4.61, Hgb 12.9, Hct 42.0, MCV 91.1, MCH 28.0, MCHC 30.7 L, RDW Std Deviation 54.6 H, RDW Coeff of Siobhan 16.3 H, Plt Count 357, MPV 9.0, Immature Gran % (Auto) 0.600, Neut % (Auto) 63.7, Lymph % (Auto) 25.8, [place] % (Auto) 9.3, Eos % (Auto) 0.3, Baso % (Auto) 0.3, Absolute Neuts (auto) 7.7, Absolute Lymphs (auto) 3.11, Nucleated RBC % 0 03/01/19 20:15: Sodium 135 L, Potassium 4.1, Chloride 100, Carbon Dioxide 30.0, Anion Gap 5, BUN 14, Creatinine 0.55, Estim Creat Clear Calc 78.13, Est GFR (MDRD) Af Amer 144, Est GFR (MDRD) Non-Af 119, BUN/Creatinine Ratio 25.4 H, Glucose 152 H, Calcium 9.2, Troponin I 0.575 H 03/01/19 20:15: Magnesium 1.9, Total Bilirubin 0.60, Direct Bilirubin 0.31 H, AST 284 H, ALT 568 H, Alkaline Phosphatase 286 H, Total Protein 8.1, Albumin 3.4, Globulin 4.7 H 03/01/19 20:40: Lactic Acid 1.1 03/01/19 23:47: Troponin I 1.380 H* 03/02/19 02:30: WBC 10.7, RBC 4.43, Hgb 12.3, Hct 40.1, MCV 90.5, MCH 27.8, MCHC 30.7 L, RDW Std Deviation 54.4 H, RDW Coeff of Siobhan 16.3 H, Plt Count 290, MPV 8.7, Immature Gran % (Auto) 0.600, Neut % (Auto) 81.9 H, Lymph % (Auto) 13.2 L, [place] % (Auto) 2.5, Eos % (Auto) 1.6, Baso % (Auto) 0.2, Absolute Neuts (auto) 8.8 H, Absolute Lymphs (auto) 1.42, Nucleated RBC % 0, Reactive Lymphocytes RARE, Platelet Estimate ADEQUATE, Hypochromasia 2+, Anisocytosis 1+ 03/02/19 02:30: Hemoglobin A1c 5.5 03/02/19 02:30: Sodium 134 L, Potassium 3.7, Chloride 100, Carbon Dioxide 31.0, Anion Gap 3 L, BUN 15, Creatinine 0.60, Estim Creat Clear Calc 71.62, Est GFR (MDRD) Af Amer 132, Est GFR (MDRD) Non-Af 109, BUN/Creatinine Ratio 25.2 H, Glucose 279 H, Calcium 8.6, Troponin I 1.240 H*, Triglycerides 100, Cholesterol 107, LDL Cholesterol 74, VLDL Cholesterol 20, HDL Cholesterol 13 L Current Medications Acetaminophen (Tylenol) 650 mg PO Q4H PRN PRN PRN Reason: Pain Score 1-10/Temp > 100.7 F Last Admin: 03/02/19 09:43 Dose: 650 mg Documented by: Albuterol Sulfate (Ventolin Aerosols) 2.5 mg INHALATION Q2H PRN PRN PRN Reason: SOB/Wheezing Albuterol/Ipratropium (Duoneb) 3 ml INHALATION Q4HWA.RT [facility] Last Admin: 03/02/19 07:22 Dose: 3 ml Documented by: Aspirin (Aspirin, Baby) 81 mg PO DAILY@0800 [facility] Last Admin: 03/02/19 09:45 Dose: 81 mg Documented by: Atorvastatin Calcium (Lipitor) 40 mg PO QHS [facility] Carvedilol (Coreg) 12.5 mg PO BID [facility] Last Admin: 03/02/19 09:45 Dose: 12.5 mg Documented by: Digoxin (Lanoxin) 250 mcg PO DAILY [facility] Last Admin: 03/02/19 09:46 Dose: 250 mcg Documented by: Enoxaparin Sodium (Lovenox) 70 mg SC BID [facility] Last Admin: 03/02/19 09:48 Dose: 70 mg Documented by: Famotidine (Pepcid) 20 mg PO BID [facility] Last Admin: 03/02/19 09:47 Dose: 20 mg Documented by: Furosemide (Lasix) 20 mg PO DAILY [facility] Last Admin: 03/02/19 09:46 Dose: 20 mg Documented by: Glucagon () 1 mg IM .X1 PRN PRN Reason: Hypoglycemia Guaifenesin (Robitussin) 20 ml PO Q4H PRN PRN PRN Reason: COUGH Hydralazine HCl (Apresoline Iv) 10 mg IV Q4H PRN PRN PRN Reason: SBP > 160 Doxycycline Hyclate 100 mg/ (Dextrose) 260 mls @ 250 mls/hr IV Q12 [facility] Last Admin: 03/02/19 10:25 Dose: 250 mls/hr Documented by: Sodium Chloride () 250 mls @ 15 mls/hr IV .[id number] PRN PRN Reason: Saline Flush Sodium Chloride () 250 mls @ 15 mls/hr IV .[id number] PRN PRN Reason: Additional IVPB Infusion Dextrose (Dextrose 10%-Water) 250 mls @ 999 mls/hr IV .Q16M PRN; Protocol PRN Reason: HYPOGLYCEMIA Levothyroxine Sodium (Synthroid) 25 mcg PO DAILY@0600 [facility] Last Admin: 03/02/19 06:15 Dose: 25 mcg Documented by: Losartan Potassium (Cozaar) 50 mg PO DAILY [facility] Last Admin: 03/02/19 09:45 Dose: 50 mg Documented by: Melatonin (Melatonin) 3 mg PO QHS PRN PRN PRN Reason: INSOMNIA Methylprednisolone (Solu-Medrol) 40 mg IV Q8 [facility] Last Admin: 03/02/19 06:15 Dose: 40 mg Documented by: Nitroglycerin (Nitrostat) 0.4 mg SUBLINGUAL Q5M PRN PRN Reason: CARDIAC/CHEST PAIN Paroxetine HCl (Paxil) 40 mg PO DAILY [facility] Last Admin: 03/02/19 09:47 Dose: 40 mg Documented by: Psyllium Hydrophilic Mucilloid (Metamucil) 1 packet PO DAILY PRN PRN PRN Reason: Constipation Sodium Chloride () 10 - 40 ml IV UD PRN PRN Reason: SALINE FLUSH Last Admin: 03/02/19 06:16 Dose: 10 ml Documented by: Spironolactone (Aldactone) 25 mg PO DAILY [facility] Last Admin: 03/02/19 09:45 Dose: 25 mg Documented by: Tamsulosin HCl (Flomax) 0.4 mg PO QHS [facility] Throat Lozenges (Cepacol Sore Throat Lozenge) 1 lozenge MUCOUS MEM Q2H PRN PRN PRN Reason: Sore Throat/Cough STROKE Vital Signs/Narrative: Vital Signs Temp Pulse Resp BP Pulse Ox 03/02/19 09:36 98.2 F 103 H 20 H 143/73 H 94 03/02/19 07:22 114 H 20 H 94 03/02/19 07:21 88 Medical Necessity - Tobacco Use Smoking Status: Former smoker Tobacco Use: Non-smoker Assessment/Plan All Active Problems (Last Reviewed 09/23/18 @ 15:41 by Renetta Almodovar) Elevated LFTs (Acute) Elevated troponin (Acute) Hyperglycemia (Acute) Acute and chronic respiratory failure with hypoxia (Acute) Sepsis (Acute) COPD exacerbation (Acute) Cardiac tamponade (Acute) The patient is a 58 y/o F with H/o Chronic Systolic CHF s/p ACID/pacemaker placement, Dilated Cardiomyopathy,Chronic Hypoxic Respiratory Failure with COPD (2.5-3L NC), Former Tobacco use, recent 02/02/19 discharge from [facility] fordx Hepatitis A who presents to the [facility] ED on 03/01/19 with history of dyspnea, wheezing, moderately productive cough without fever or chills x 3 days with progressively worsening malaise, fatigue, poor oral intake prompting ED presentation. 1. Acute Sepsis (tachycardia, tachypnea, hypoxia and leukocytosis) secondary to COPD exacerbation with Acute on Chronic Hypoxic Respiratory Failure: Currently on 35 to 40% FiO2 on Ventimask. Required increased oxygen than baseline. Patient is being admitted in PCU. Continue oxygen support. continue ATC duonebs, PRN albuterol, IV methylprednisolone, HOB, IS parameters, doxycycline, obtain respiratory viral panel and sputum cultures. Respiratory panel, sputum culture and blood cultures x2 are pending. 2. NSTEMI: EKG in ED with sinus tachycardia with left bundle branch block with no acute evidence of ischemia, first troponin 0 0.57, second troponin 1.3) 1.2. Discussed with Dr. Yeboah. 2D echo was done and shows picture of Takotsubo cardiomyopathy. She has history of nonischemic cardiomyopathy status post AICD. Previous echo in December 2014 after pericardial effusion status post drainage reported as, trivial to small pericardial effusion mainly around right ventricle. initial trop elevated, 0.575. monitor worker. Discussed with bread wrapping machine feeder. Patient needs further stabilization of pulmonary COPD exacerbation and further invasive cardiac work-up if needed. Lipid profile LDL 74, HDL 13; suggestive of dyslipidemia. Magnesium normal. 3. Hyperglycemia: Admission glucose 152, A1c 5.5. 4. Recent hepatitis A, acute infection: LFT shows AST 284, ALT 568, alkaline phosphatase 286. Monitor daily LFT. 5. Chronic Systolic CHF, Dilated Cardiomyopathy: s/p AICD/pacemaker placement, Continue Asa, spironolactone, losartan, Lasix, digoxin, Coreg, statin. Discontinue IV fluid 6. Hypertension: Continue home regimen including Loly lactone, losartan, Lasix, Coreg, PRN hydralazine. 7. Hyperlipidemia: Continue home statin regimen. 8. Obesity: Weight loss and lifestyle changes encouraged. 9. Former Tobacco use: Encourage continued cessation. 10. Obesity: Weight loss and lifestyle changes encouraged. 11. Anxiety and Depression: Maintain on home paxil regimen. 12. DVT Prophylaxis: SCDs, therapeutic lovenox pending cardiac enzyme trending. 13. CODE status: Full code Clinical Impression(s) from Imaging Studies Chest X-Ray 03/01/19 21:00 IMPRESSION: No acute thoracic pathology. COPD. Code Visit Inpatient E&M: 36681 Subs Hosp L3
--- NOTE | 2019-03-02 11:04 | CASEMGMT ---
RN CM Readmission Note Previous Admission: 01.31-02.02.19 Diagnosis: COPD DC Disposition: Home F/U: Pt did ot go to see Dr. Ross on 02.10.19, states her brother at that time. Pt did not make another appointment for f/u. Current Admission See previous RN CM assessment for details Presentation: Intro role of CM and purpose of RN CM assessment. Pt states she has aides to help her at home through [employer], [facility] provides services 3xweek, 2 hours/day. Pt requests if appointment made on discharge, to have a week from dc so she can make arrangements for transportation. Discussed options given to her last admit for transportation, however pt states she plans to have family provide. SW consult: pt has services through waiver program. DC PLAN: anticipate home with aide services. PT/OT evaluations pending.
--- NOTE | 2019-03-02 11:24 | NURSING ---
Pt updated on new pain medication orders and this RN inquired about vicodin allergy. pt states it only makes her nauseous and that she has taken oxycodone in the past. Gregory RESENDIZ
--- NOTE | 2019-03-02 11:41 | CASEMGMT ---
Addendum entered by Ana Dai 03/02/19 12:49: SW spoke w/Rachel at [facility] in regard to palliative referral. She states they will follow up w/pt once pt is home. SW let pt know, pt states understanding. No further needs anticipated at this time. PAULINA Victor Original Note: SW completed palliative tool, it does seem pt would be a good candidate for palliative care. SW spoke w/pt about palliative care, gave pt a brochure. Pt is open to a referral, is willing to speak w/palliative either while here or at home. SW called [facility], message left for palliative care and referral faxed. SW will continue to follow. PAULINA Victor
[2019-03-02] MEDS: Morphine 2 MG/ML Syringe IV ×3 (11:51→21:46)
--- NOTE | 2019-03-02 13:02 | CASEMGMT ---
LW/POA forms not on file. SW let pt know that the forms are not on file and asked her to bring them in as able. Pt states understanding. Pt confirms her daughter in law Shira Granado is her POA, however declined to add her information to the demographics here at the hospital. PAULINA Victor
[2019-03-02] MEDS: Oseltamivir Phosphate 75 MG Capsule PO ×2 (14:50→21:55)
[2019-03-02] MEDS: Atorvastatin Calcium 40 MG Tablet PO (21:49)
[2019-03-02] MEDS: Tamsulosin HCl 0.4 MG Capsule PO (21:50)
[2019-03-02] MEDS: Doxycycline 100 MG CAPSULE PO (21:56)
[2019-03-03] VITALS (16 sets, daily range): BP systolic 126–138; BP diastolic 43–62; PULSE 75–103; RESP 16–22; TEMP 36.3–36.7; O2SAT 92–98
[2019-03-03] MEDS: Morphine 2 MG/ML Syringe IV ×5 (01:56→20:51)
[2019-03-03] MEDS: 0.9% Saline Lock 10 ML Syringe IV ×8 (01:57→21:50)
[2019-03-03] MEDS: Ipratropium/Albuterol Sulfate 3 ML AMPUL.NEB INHALATION ×6 (02:04→22:50)
[2019-03-03] MEDS: guaiFENesin 1,200 MG Tablet 1200 MG PO ×3 (02:05→21:49)
[2019-03-03 05:13] LABS: Absolute Lymphocyte Count 1.54 X10^3/uL (0.83-4.51); Absolute Neutrophil Count 8.7 X10^3/uL (2.0-7.7); Basophil# 0.01 X10^3/uL; Basophil% 0.1 % (0-1); Hematocrit 38.9 % (37-47); Hemoglobin 11.3 g/dL (12.0-15.0); Lymphocyte # 1.54 X10^3/ul (4.0); Lymphocyte % 13.8 % (19-41); Mean Corpuscular Hgb 27.7 pg (27.0-32.0); Mean Corpuscular Volume 95.3 fL (81-99); Mean Platelet Vol. 8.6 fl (6.2-12.0); Monocyte# 0.85 X10^3/uL; Monocyte% 7.6 % (0-10); NRBC Flagged by Analyzer 0 % (0-5); Neutrophil % 77.9 % (47-70); POSITIVE MORPHOLOGY YES; Platelet Count 290 K/mm3 (150-450); RBC Distribution Width CV 16.7 % (11.6-14.6); RBC Distribution Width SD 58.8 fl (35.1-43.9); Red Blood Count 4.08 M/mm3 (4.2-5.4); White Blood Count 11.2 K/mm3 (4.4-11.0)
[2019-03-03] MEDS: Levothyroxine 25 MCG TABLET PO (05:18)
[2019-03-03 05:22] LABS: Differential Indicated SCAN CRITERIA MET
[2019-03-03 05:43] LABS: Anisocytosis 1+; Hypochromasia 1+; Platelet Estimate ADEQUATE (ADEQ)
[2019-03-03 06:02] LABS: ALB/GLOB Ratio 0.6 RATIO (0.9-2.4); AST(SGOT) 117 U/L (15-37); Alanine Aminotransfer ALT/SGPT 336 U/L (13-56); Albumin, Serum 2.6 g/dL (3.2-5.0); Alkaline Phosphatase 184 U/L (45-117); Anion Gap 1 (5-15); BUN 15 mg/dL (7-18); BUN/Creat Ratio 26.3 RATIO (10-20); Calcium,Total 8.5 mg/dL (8.5-10.1); Chloride 103 mmol/L (98-107); Creatinine, Serum 0.57 mg/dL (0.55-1.02); EST Glomerular Filtration Rate 115 mL/min (>60); Est Glom Filt Rate - Afr Amer 139 mL/min (>60); Estimated Creatinine Clearance 75.39 ml/min; Globulin 4.5 g/dL (2.2-4.2); Glucose 192 mg/dL (74-106); Potassium 4.2 mmol/L (3.5-5.1); Protein, Total 7.1 g/dL (6.4-8.2); Sodium Level 139 mmol/L (136-145)
[2019-03-03] MEDS: Aspirin 81 MG TAB.CHEW PO (09:16)
[2019-03-03] MEDS: Digoxin 250 MCG Tablet PO (09:17)
[2019-03-03] MEDS: Paroxetine 20 MG Tablet 40 MG PO (09:17)
[2019-03-03] MEDS: Famotidine 20 MG Tablet PO ×2 (09:17→21:49)
[2019-03-03] MEDS: Oseltamivir Phosphate 75 MG Capsule PO ×2 (09:18→21:50)
[2019-03-03] MEDS: Doxycycline 100 MG CAPSULE PO ×2 (09:18→21:49)
[2019-03-03] MEDS: Furosemide 20 MG Tablet PO (09:18)
[2019-03-03] MEDS: Losartan Potassium 50 MG Tablet PO (09:18)
[2019-03-03] MEDS: Carvedilol 12.5 MG Tablet PO ×2 (09:18→21:49)
[2019-03-03] MEDS: Spironolactone 25 MG Tablet PO (09:18)
[2019-03-03] MEDS: Enoxaparin 80 MG/0.8 ML Syringe 70 MG SC ×2 (09:19→21:50)
--- NOTE | 2019-03-03 09:50 | PCM.PN.CARD ---
Subjectve: The patient is awake and alert. She states her main concern is still her cough and her shortness of breath. She has still required O2 supplement via a facemask. Objective: Vital Signs Temp Pulse Resp BP Pulse Ox 98.1 F 84 19 H 130/57 H 93 03/03/19 09:13 03/03/19 09:13 03/03/19 09:13 03/03/19 09:13 03/03/19 09:13 Oxygen Flow Rate (L/min) 6 Oxygen Delivery Method Nasal Cannula Weight: 151 lb 3.794 oz Body Mass Index (BMI) 29.3 Intake and Output for Last 24 Hours 03/01/19 03/02/19 03/03/19 23:59 23:59 23:59 Intake Total 2345.00 / 2345.00 Output Total 2 / 2 Balance 2343.00 / 2343.00 General: Awake, Alert, Oriented x 3, Cooperative, No Acute Distress HEENT: Atraumatic, Normocephalic, PERRL, EOMI, Sclera Non Icteric Oral: Moist Mucosa Neck: Supple, Good ROM, No JVD Lungs: Diminished Eron Bases Cardiovascular: Regular Rhythm, Normal S1, Normal S2 Abdomen: Bowel Sounds Present, Soft Extremities: No edema Psych/Mental Status: Appropriate 03/03/19 04:55: WBC 11.2 H, RBC 4.08 L, Hgb 11.3 L, Hct 38.9, MCV 95.3 D, MCH 27.7, MCHC 29.0 L, Plt Count 290, MPV 8.6, Immature Gran % (Auto) 0.600, Neut % (Auto) 77.9 H, Lymph % (Auto) 13.8 L, [place] % (Auto) 7.6, Eos % (Auto) 0.0, Baso % (Auto) 0.1, Absolute Neuts (auto) 8.7 H, Nucleated RBC % 0 03/03/19 04:55: Sodium 139, Potassium 4.2, Chloride 103, Carbon Dioxide 35.0 H, Anion Gap 1 L, BUN 15, Creatinine 0.57, Est GFR (MDRD) Af Amer 139, Est GFR (MDRD) Non-Af 115, BUN/Creatinine Ratio 26.3 H, Glucose 192 H, Calcium 8.5, Total Bilirubin 0.30 03/03/19 07:15: Digoxin 1.00 Rhythm: Electronic ventricular paced rhythm Medical Necessity - Tobacco Use Smoking Status: Former smoker Tobacco Use: Non-smoker Assessment/Plan 1. Non-ST segment elevation TX At the present time she has findings compatible with a non-ST segment elevation TX. Based upon her previous history of a non-CAD related cardiomyopathy this may be a type II event secondary to supply demand mismatch. This may be brought on by her underlying acute pulmonary disease process. Based upon her echocardiographic images there is concerned that she has developed a Takotsubo syndrome/stress-induced cardiomyopathy. At the present time she will continue to be monitored. She will continue medical management as deemed appropriate. Over time, after she has been treated and improved from her acute respiratory event, consideration will be given as to whether or not she requires repeat evaluation in the cardiac catheterization laboratory. 2. Non-CAD related cardiomyopathy Again she has a history of a non-CAD related cardiomyopathy with diminished LV systolic function. This led her to biventricular pacing. At the moment she has echocardiographic findings appearing compatible with a Takotsubo syndrome/stress-induced cardiomyopathy. She does not appear to have evidence of acute on chronic systolic mediated CHF at the moment. She will continue medical management and evaluation as noted above. 3. Chronic systolic mediated CHF Again at the moment she does not appear to have acute on chronic systolic mediated CHF type symptoms. She will need to continue medical therapy with adjustment as deemed appropriate during her acute respiratory course, etc. 4. Mitral valve regurgitation She does have an element of mitral valve regurgitation. She will continue to be followed by history, exam, and echocardiogram as deemed appropriate. 5. Ventricular ectopy/tachycardia She is having no obvious ventricular dysrhythmias at this time. She will continue medical therapy. She does have an ICD in place. 6. Biventricular ICD She does have a biventricular ICD in place. She can have this reassessed as deemed appropriate. 7. Hyperlipidemia She will continue lipid-lowering therapy as deemed appropriate. 8. Hypertension She will continue to have her blood pressure monitor. Her medications can be adjusted as needed. 9. Acute respiratory event/COPD exacerbation She will continue evaluation care per internal medicine. 10. Elevated hepatic transaminase levels Her hepatic studies are being followed. She may need further evaluation from a noncardiac standpoint. In the meantime her medications will have to be monitored with adjustment of dosages as deemed appropriate. This may include placing her statin therapy on hold-at least temporarily. Comment: The patient's case has been discussed and reviewed with the patient and the [facility] staff. This note was generated using a voice recognition system and there may be incorrect words, spelling or punctuation that were not noted when reviewing the office note prior to saving.
--- NOTE | 2019-03-03 12:26 | PN_ITS ---
Patient Problems: Active and Suspected Problems (Last Reviewed 09/23/18 @ 15:41 by Renetta Almodovar) Elevated troponin (Acute) Hyperglycemia (Acute) Acute and chronic respiratory failure with hypoxia (Acute) Sepsis (Acute) NSTEMI (non-ST elevated myocardial infarction) (Acute) COPD exacerbation (Acute) Reason for Visit: Patient is still very short of breath and wheezing although feels slightly better than yesterday. Has chest congestion and cough and unable to bring up phlegm. Interdisciplinary rounds was done. Has seen Dr. Wallace in November 2017. She has extensive smoking history and quit smoking in 2014. She has history of relapse of smoking. Objective: General: Alert, Oriented x3, Cooperative HEENT: Atraumatic, PERRLA, EOMI, Normocephalic Oral: Oral mucosa moist. Deep pharyngeal estrogen not clearly visualized. Neck: Supple, No JVD, Negative Carotid Bruits Lungs: Diminished - Air entry is diminished diffusely in all lung mccray. Bilateral rhonchi and wheezing present. Chest congestion present. Cardiovascular: Regular rate, Normal S1, Normal S2, No murmurs Abdomen: Bowel Sounds Present, Soft, Non Tender, Non-Distended Extremities: Capillary Refill Less than 3 Seconds, SUBTLE in lower legs Skin: No rashes, No breakdown Musculoskeletal: No Tenderness to Palpation of Joints or Extremities, Arthritic Changes Neurological: Cranial nerves II-XII grossly intact, Deep Tendon Reflexes 2+/4 and Symmetrical, Neuro grossly intact Psych/Mental Status: Normal Affect, Appropriate Vitals/I&O's: Vital Signs Temp Pulse Resp BP Pulse Ox 98.1 F 93 16 130/57 H 93 03/03/19 09:13 03/03/19 11:08 03/03/19 11:08 03/03/19 09:13 03/03/19 09:13 Oxygen Flow Rate (L/min) 6 Oxygen Delivery Method Nasal Cannula Weight: 151 lb 3.794 oz Body Mass Index (BMI) 29.3 Intake and Output for Last 24 Hours 03/01/19 03/02/19 03/03/19 23:59 23:59 23:59 Intake Total 2345.00 / 2345.00 Output Total 2 / 2 Balance 2343.00 / 2343.00 Microbiology Past 72 Hours 03/01/19 23:47 Sputum, Expectorated/Coughed Gram Stain - Final 03/01/19 23:47 Sputum, Expectorated/Coughed Respiratory Culture - Preliminary Appears to be normal respiratory ronda. Further studies to follow. 03/01/19 20:37 Mucosa - Nasopharyngeal Respiratory Panel (PCR) - Final Influenza A (Subtype H1) RSV A 03/01/19 20:37 Mucosa - Nasopharyngeal Influenza Types A,B Direct FA (ANGELES) - Final Laboratory Results 03/03/19 04:55: WBC 11.2 H, RBC 4.08 L, Hgb 11.3 L, Hct 38.9, MCV 95.3 D, MCH 27.7, MCHC 29.0 L, RDW Std Deviation 58.8 H, RDW Coeff of Siobhan 16.7 H, Plt Count 290, MPV 8.6, Immature Gran % (Auto) 0.600, Neut % (Auto) 77.9 H, Lymph % (Auto) 13.8 L, [place] % (Auto) 7.6, Eos % (Auto) 0.0, Baso % (Auto) 0.1, Absolute Neuts (auto) 8.7 H, Absolute Lymphs (auto) 1.54, Nucleated RBC % 0, Platelet Estimate ADEQUATE, Hypochromasia 1+, Anisocytosis 1+ 03/03/19 04:55: Sodium 139, Potassium 4.2, Chloride 103, Carbon Dioxide 35.0 H, Anion Gap 1 L, BUN 15, Creatinine 0.57, Estim Creat Clear Calc 75.39, Est GFR (MDRD) Af Amer 139, Est GFR (MDRD) Non-Af 115, BUN/Creatinine Ratio 26.3 H, Glucose 192 H, Calcium 8.5, Total Bilirubin 0.30, AST 117 H, ALT 336 H, Alkaline Phosphatase 184 H, Total Protein 7.1, Albumin 2.6 L, Globulin 4.5 H, Albumin/Globulin Ratio 0.6 L 03/03/19 07:15: Digoxin 1.00 Current Medications Acetaminophen (Tylenol) 650 mg PO Q4H PRN PRN PRN Reason: Pain Score 1-10/Temp > 100.7 F Last Admin: 03/02/19 09:43 Dose: 650 mg Documented by: Albuterol Sulfate (Ventolin Aerosols) 2.5 mg INHALATION Q2H PRN PRN PRN Reason: SOB/Wheezing Albuterol/Ipratropium (Duoneb) 3 ml INHALATION Q4HWA.RT [facility] Last Admin: 03/03/19 11:08 Dose: 3 ml Documented by: Aspirin (Aspirin, Baby) 81 mg PO DAILY@0800 [facility] Last Admin: 03/03/19 09:16 Dose: 81 mg Documented by: Carvedilol (Coreg) 12.5 mg PO BID [facility] Last Admin: 03/03/19 09:18 Dose: 12.5 mg Documented by: Digoxin (Lanoxin) 250 mcg PO DAILY [facility] Last Admin: 03/03/19 09:17 Dose: 250 mcg Documented by: Doxycycline Monohydrate (Doxycycline) 100 mg PO BID [facility] Last Admin: 03/03/19 09:18 Dose: 100 mg Documented by: Enoxaparin Sodium (Lovenox) 70 mg SC BID [facility] Last Admin: 03/03/19 09:19 Dose: 70 mg Documented by: Famotidine (Pepcid) 20 mg PO BID [facility] Last Admin: 03/03/19 09:17 Dose: 20 mg Documented by: Furosemide (Lasix) 20 mg PO DAILY [facility] Last Admin: 03/03/19 09:18 Dose: 20 mg Documented by: Glucagon () 1 mg IM .X1 PRN PRN Reason: Hypoglycemia Guaifenesin (Mucinex) 1,200 mg PO BID [facility] Last Admin: 03/03/19 09:17 Dose: 1,200 mg Documented by: Hydralazine HCl (Apresoline Iv) 10 mg IV Q4H PRN PRN PRN Reason: SBP > 160 Sodium Chloride () 250 mls @ 15 mls/hr IV .[id number] PRN PRN Reason: Saline Flush Sodium Chloride () 250 mls @ 15 mls/hr IV .[id number] PRN PRN Reason: Additional IVPB Infusion Dextrose (Dextrose 10%-Water) 250 mls @ 999 mls/hr IV .Q16M PRN; Protocol PRN Reason: HYPOGLYCEMIA Levothyroxine Sodium (Synthroid) 25 mcg PO DAILY@0600 [facility] Last Admin: 03/03/19 05:18 Dose: 25 mcg Documented by: Losartan Potassium (Cozaar) 50 mg PO DAILY [facility] Last Admin: 03/03/19 09:18 Dose: 50 mg Documented by: Melatonin (Melatonin) 3 mg PO QHS PRN PRN PRN Reason: INSOMNIA Methylprednisolone (Solu-Medrol) 40 mg IV Q8 [facility] Last Admin: 03/03/19 05:21 Dose: 40 mg Documented by: Morphine Sulfate () 2 mg IV Q4H PRN PRN PRN Reason: Pain Score 6-10/10 Last Admin: 03/03/19 10:34 Dose: 2 mg Documented by: Nitroglycerin (Nitrostat) 0.4 mg SUBLINGUAL Q5M PRN PRN Reason: CARDIAC/CHEST PAIN Oseltamivir Phosphate (Tamiflu) 75 mg PO BID [facility] Stop: 03/06/19 22:01 Last Admin: 03/03/19 09:18 Dose: 75 mg Documented by: Oxycodone HCl (Oxyir) 5 mg PO Q4H PRN PRN PRN Reason: Pain Score 4-5/10 Paroxetine HCl (Paxil) 40 mg PO DAILY [facility] Last Admin: 03/03/19 09:17 Dose: 40 mg Documented by: Psyllium Hydrophilic Mucilloid (Metamucil) 1 packet PO DAILY PRN PRN PRN Reason: Constipation Sodium Chloride () 10 - 40 ml IV UD PRN PRN Reason: SALINE FLUSH Last Admin: 03/03/19 10:37 Dose: 10 ml Documented by: Spironolactone (Aldactone) 25 mg PO DAILY [facility] Last Admin: 03/03/19 09:18 Dose: 25 mg Documented by: Tamsulosin HCl (Flomax) 0.4 mg PO QHS [facility] Last Admin: 03/02/19 21:50 Dose: 0.4 mg Documented by: Throat Lozenges (Cepacol Sore Throat Lozenge) 1 lozenge MUCOUS MEM Q2H PRN PRN PRN Reason: Sore Throat/Cough STROKE Vital Signs/Narrative: Vital Signs Temp Pulse Resp BP Pulse Ox 03/03/19 11:08 93 16 03/03/19 11:07 96 03/03/19 09:13 98.1 F 84 19 H 130/57 H 93 Medical Necessity - Tobacco Use Smoking Status: Former smoker Tobacco Use: Non-smoker Assessment/Plan All Active Problems (Last Reviewed 09/23/18 @ 15:41 by Renetta Almodovar) Elevated LFTs (Acute) Elevated troponin (Acute) Hyperglycemia (Acute) Acute and chronic respiratory failure with hypoxia (Acute) Sepsis (Acute) NSTEMI (non-ST elevated myocardial infarction) (Acute) COPD exacerbation (Acute) Cardiac tamponade (Acute) The patient is a 58 y/o F with H/o Chronic Systolic CHF s/p ACID/pacemaker placement, Dilated Cardiomyopathy,Chronic Hypoxic Respiratory Failure with COPD (2.5-3L NC), Former Tobacco use, recent 02/02/[address] [facility] fordx Hepatitis A who presents to the [facility] ED on 03/01/19 with history of dyspnea, wheezing, moderately productive cough without fever or chills x 3 days with progressively worsening malaise, fatigue, poor oral intake prompting ED presentation. 1. Acute Sepsis (tachycardia, tachypnea, hypoxia and leukocytosis) secondary to COPD exacerbation with Acute on Chronic Hypoxic Respiratory Failure: Currently on 35 to 40% FiO2 on Ventimask. Required increased oxygen than baseline. Patient is being admitted in PCU. Continue oxygen support. continue ATC duonebs, PRN albuterol, IV methylprednisolone, HOB, IS parameters, doxycycline, obtain respiratory viral panel and sputum cultures. Respiratory panel, sputum culture and blood cultures x2 are pending. 03/03/2019: Respiratory panel is positive of RSV and influenza A, H1. Patient had interdisciplinary round. Need aggressive chest physiotherapy and incentive spirometry. Discussed with respiratory therapist. Continue antibiotic doxycycline and Tamiflu. 2. NSTEMI: EKG in ED with sinus tachycardia with left bundle branch block with no acute evidence of ischemia, first troponin 0 0.57, second troponin 1.3) 1.2. Discussed with Dr. Yeboah. 2D echo was done and shows picture of Takotsubo cardiomyopathy. She has history of nonischemic cardiomyopathy status post AICD. Previous echo in December 2014 after pericardial effusion status post drainage reported as, trivial to small pericardial effusion mainly around right ventricle. initial trop elevated, 0.575. monitoring analyst. Discussed with mold burner. Patient needs further stabilization of pulmonary COPD exacerbation and further invasive cardiac work-up if needed. Lipid profile LDL 74, HDL 13; suggestive of dyslipidemia. Magnesium normal. 03/03/2019: Patient does not have chest pain. Electrolytes within normal limit. Elevated troponin mostly secondary to COPD exacerbation/demand ischemia 3. Hyperglycemia: Admission glucose 152, A1c 5.5. 4. Recent hepatitis A, acute infection: LFT shows AST 284, ALT 568, alkaline phosphatase 286. Monitor daily LFT. 03/03/2019: Transaminases are improving, ALT 336, AST 117, alkaline phosphatase 184. This most probably secondary to viral infection. CT abdomen done in January 2019 reported as livers mildly fatty infiltrated. Minimal intrahepatic dilatation. CBD 6 mm. GB wall thickening with trace PC fluid. Right upper quadrant sonogram reported as similar enlarged fatty liver with mild thickening of gallbladder wall with sludge. Currently patient does not have abdominal pain. 5. Chronic Systolic CHF, Dilated Cardiomyopathy: s/p AICD/pacemaker placement, Continue Asa, spironolactone, losartan, Lasix, digoxin, Coreg, statin. Discontinue IV fluid 6. Hypertension: Continue home regimen including Loly lactone, losartan, Lasix, Coreg, PRN hydralazine. 7. Hyperlipidemia: Continue home statin regimen. 8. Obesity: Weight loss and lifestyle changes encouraged. 9. Former Tobacco use: Encourage continued cessation. 10. Obesity: Weight loss and lifestyle changes encouraged. 11. Anxiety and Depression: Maintain on home paxil regimen. 12. DVT Prophylaxis: SCDs, therapeutic lovenox pending cardiac enzyme trending. 13. CODE status: Full code Microbiology Past 72 Hours 03/01/19 23:47 Sputum, Expectorated/Coughed Gram Stain - Final 03/01/19 23:47 Sputum, Expectorated/Coughed Respiratory Culture - Preliminary Appears to be normal respiratory ronda. Further studies to follow. 03/01/19 20:37 Mucosa - Nasopharyngeal Respiratory Panel (PCR) - Final Influenza A (Subtype H1) RSV A 03/01/19 20:37 Mucosa - Nasopharyngeal Influenza Types A,B Direct FA (ANGELES) - Final Laboratory Results 03/03/19 04:55: WBC 11.2 H, RBC 4.08 L, Hgb 11.3 L, Hct 38.9, MCV 95.3 D, MCH 27.7, MCHC 29.0 L, RDW Std Deviation 58.8 H, RDW Coeff of Siobhan 16.7 H, Plt Count 290, MPV 8.6, Immature Gran % (Auto) 0.600, Neut % (Auto) 77.9 H, Lymph % (Auto) 13.8 L, [place] % (Auto) 7.6, Eos % (Auto) 0.0, Baso % (Auto) 0.1, Absolute Neuts (auto) 8.7 H, Absolute Lymphs (auto) 1.54, Nucleated RBC % 0, Platelet Estimate ADEQUATE, Hypochromasia 1+, Anisocytosis 1+ 03/03/19 04:55: Sodium 139, Potassium 4.2, Chloride 103, Carbon Dioxide 35.0 H, Anion Gap 1 L, BUN 15, Creatinine 0.57, Estim Creat Clear Calc 75.39, Est GFR (MDRD) Af Amer 139, Est GFR (MDRD) Non-Af 115, BUN/Creatinine Ratio 26.3 H, Glucose 192 H, Calcium 8.5, Total Bilirubin 0.30, AST 117 H, ALT 336 H, Alkaline Phosphatase 184 H, Total Protein 7.1, Albumin 2.6 L, Globulin 4.5 H, Albumin/Globulin Ratio 0.6 L 03/03/19 07:15: Digoxin 1.00 Clinical Impression(s) from Imaging Studies Chest X-Ray 03/01/19 21:00 IMPRESSION: No acute thoracic pathology. COPD. Total time of the visit including total time spent in counseling or coordination of care, (more than 50% of the total time, spent in obtaining medical information from nurses and other ancillary care providers), interdisciplinary rounds, discussion with actuarial consultant and review of medical record is 30 minutes Code Visit Inpatient E&M: 25079 Subs Hosp L2
[2019-03-03] MEDS: Tamsulosin HCl 0.4 MG Capsule PO (21:49)
[2019-03-04] VITALS (14 sets, daily range): BP systolic 120–137; BP diastolic 55–77; PULSE 72–101; RESP 13–20; TEMP 36.3–37; O2SAT 83–97
[2019-03-04] MEDS: 0.9% Saline Lock 10 ML Syringe IV ×5 (01:10→21:20)
[2019-03-04] MEDS: Morphine 2 MG/ML Syringe IV ×5 (01:10→20:01)
[2019-03-04] MEDS: Ipratropium/Albuterol Sulfate 3 ML AMPUL.NEB INHALATION ×4 (02:50→20:00)
[2019-03-04 05:27] LABS: Absolute Lymphocyte Count 1.33 X10^3/uL (0.83-4.51); Absolute Neutrophil Count 7.4 X10^3/uL (2.0-7.7); Eosinophil# 0.21 X10^3/uL; Eosinophils% 2.2 % (0-5); Hematocrit 38.3 % (37-47); Lymphocyte # 1.33 X10^3/ul (4.0); Lymphocyte % 13.8 % (19-41); Mean Corp Hgb Conc 28.7 g/dL (32-36); Mean Corpuscular Hgb 27.3 pg (27.0-32.0); Mean Platelet Vol. 8.6 fl (6.2-12.0); Monocyte# 0.74 X10^3/uL; Monocyte% 7.7 % (0-10); NRBC Flagged by Analyzer 0 % (0-5); Neutrophil # 7.35 X10^3/uL (2.7-7.7); Neutrophil % 75.9 % (47-70); POSITIVE MORPHOLOGY YES; Platelet Count 299 K/mm3 (150-450); RBC Distribution Width CV 16.6 % (11.6-14.6); RBC Distribution Width SD 58.3 fl (35.1-43.9); Red Blood Count 4.03 M/mm3 (4.2-5.4); White Blood Count 9.7 K/mm3 (4.4-11.0)
[2019-03-04] MEDS: Levothyroxine 25 MCG TABLET PO (05:27)
[2019-03-04 05:36] LABS: Differential Indicated SCAN CRITERIA MET
[2019-03-04 05:38] LABS: ALB/GLOB Ratio 0.6 RATIO (0.9-2.4); AST(SGOT) 77 U/L (15-37); Alanine Aminotransfer ALT/SGPT 247 U/L (13-56); Albumin, Serum 2.4 g/dL (3.2-5.0); Alkaline Phosphatase 158 U/L (45-117); Anion Gap 0 (5-15); BUN 15 mg/dL (7-18); BUN/Creat Ratio 30.5 RATIO (10-20); Bilirubin, Direct 0.14 mg/dL (0.00-0.30); Calcium,Total 8.6 mg/dL (8.5-10.1); Chloride 102 mmol/L (98-107); Creatinine, Serum 0.49 mg/dL (0.55-1.02); EST Glomerular Filtration Rate 136 mL/min (>60); Est Glom Filt Rate - Afr Amer 165 mL/min (>60); Globulin 4.3 g/dL (2.2-4.2); Glucose 178 mg/dL (74-106); Potassium 4.6 mmol/L (3.5-5.1); Protein, Total 6.7 g/dL (6.4-8.2); Sodium Level 138 mmol/L (136-145)
[2019-03-04 06:15] LABS: Differential Comment SCANNED
--- NOTE | 2019-03-04 08:11 | CPS ---
PT FOUND WITH VENTI MASK OFF. VENTI MASK PLACED BACK ON PT. SATURATION UP TO 96%
--- NOTE | 2019-03-04 08:33 | PCM.CONS.PUL ---
Reason for Consult Date of Consultation: 03/04/19 Reason for Consultation: COPD exacerbation History of Present Illness: The patient is a 58-year-old female, with a history as outlined below, who initially presented to the emergency department on March 01 with complaints of shortness of breath. The patient has a reported history of COPD of unknown severity along with chronic tobacco dependency. I initially met the hospital in 2015 when she presented to the pulmonary medicine clinic to establish care. Pulmonary function studies were ordered at that time. However, the patient failed to follow-up. Again in 2018, the patient was hospitalized for a COPD exacerbation. She once again followed up with me in the pulmonary medicine clinic, at which time orders were placed for pulmonary function studies. And once again the patient failed to complete testing or follow-up. The patient reports that she chronically utilizes 3 L/min of supplemental oxygen in her home environment. She is currently only utilizing Spiriva and as needed albuterol in her home environment. She does report that in the weeks leading up to her hospitalization she had cut back to smoking several cigarettes per week. However, she is insistent that as of this hospitalization she is no longer going to smoke cigarettes. On presentation to the emergency department, the patient was noted to be afebrile, tachycardic, tachypneic and hypoxemic. Laboratory evaluation revealed a mildly elevated white blood cell count to 12,000. Chemistry profile was largely unrevealing. Troponin was elevated to 1.38 with elevated AST, ALT and alkaline phosphatase. Plain film chest x-ray revealed no acute cardiopulmonary process. The patient was subsequently admitted to the progressive care unit for further management. The patient's hospital course has included treatment for influenza A and RSV, identified on respiratory viral panel. She remains on bronchodilators, IV steroids and antimicrobials, along with Tamiflu. Cardiology is also following the patient as she has been identified as having sustained a non-ST segment elevation [place]. Past Medical History Past Medical History (Chronic Problems): Chronic Problems (Last Reviewed 09/23/18 @ 15:41 by Renetta Almodovar) Hepatitis A (Chronic) Former tobacco use (Chronic) Essential hypertension (Chronic) Obesity (BMI 30.0-34.9) (Chronic) RBBB (right bundle branch block) (Chronic) Hyperlipidemia (Chronic) Cardiomyopathy, dilated (Chronic) Nonrheumatic mitral valve regurgitation (Chronic) Chronic systolic congestive heart failure (Chronic) Biventricular automatic implantable cardioverter defibrillator in situ (Chronic ~01/05/15) RV lead implantation complicated by tamponade -pericardiocentesis done 01/05/15 Atherosclerotic heart disease of [place] coronary artery without angina pectoris (Chronic) Ventricular tachycardia (Chronic) Medical History: Medical History (Last Reviewed 09/23/18 @ 15:41 by Renetta Almodovar) COPD exacerbation (Acute) J44.1 Obesity (BMI 30.0-34.9) (Chronic) E66.9 Cardiac tamponade (Acute) I31.4 RBBB (right bundle branch block) (Chronic) I45.10 Hyperlipidemia (Chronic) E78.5 Cardiomyopathy, dilated (Chronic) I42.0 Nonrheumatic mitral valve regurgitation (Chronic) I34.0 Chronic systolic congestive heart failure (Chronic) I50.22 Biventricular automatic implantable cardioverter defibrillator in situ (Chronic) Onset Date: ~01/05/15 Z95.810 RV lead implantation complicated by tamponade -pericardiocentesis done 01/05/15 Atherosclerotic heart disease of [place] coronary artery without angina pectoris (Chronic) I25.10 Ventricular tachycardia (Chronic) I47.2 Anxiety F41.9 COPD (chronic obstructive pulmonary disease) J44.9 Depression F32.9 Allergies acetaminophen [From Vicodin] Allergy (Verified 01/31/19 20:26) Hives hydrocodone bitartrate [From Vicodin] Allergy (Verified 01/31/19 20:26) Hives Penicillins Allergy (Verified 01/31/19 20:26) Anaphylaxis Home Medications: Ambulatory Orders Medication Instructions Recorded Losartan Potassium [Cozaar] 50 mg PO DAILY 04/16/15 Spironolactone [Aldactone] 25 mg PO DAILY 04/16/15 albuterol sulfate 90 mcg/actuation 2 puff INHALATION Q4H PRN 06/30/17 aerosol inhaler atorvastatin 40 mg tablet 40 mg PO QDAY 06/30/17 carvedilol 12.5 mg tablet 12.5 mg PO BID 06/30/17 Albuterol Aerosols [Ventolin 2.5 mg INHALATION Q4HWA.RT 12/10/17 Aerosols] Levothyroxine [Synthroid] 25 mcg PO DAILY 12/10/17 Paroxetine HCl [Paxil] 40 mg PO DAILY 12/10/17 Tamsulosin HCl [Flomax] 0.4 mg PO QHS 12/10/17 Home Oxygen 3 lpm INHALATION DAILY PRN 09/23/18 Budesonide/Formoterol 160/4.5 2 puff INHALATION BID 03/01/19 [Symbicort 160/4.5 Mcg Inhaler (SP)] Digoxin [Lanoxin] 250 mcg PO DAILY 03/01/19 Furosemide [Lasix] 20 mg PO DAILY 03/01/19 Surgical History: Surgical History (Last Reviewed 09/23/18 @ 15:41 by Renetta Almodovar) History of tubal ligation Z98.51 Status post pericardiocentesis Z98.890 Surgical History: - - x 2, hysterectomy, AICD/pacemaker placement. Psychiatric History: Anxiety, Depression HAND MODEL History: No pertinent HAND MODEL history Lives: Alone Smoking Status: Former smoker Tobacco Use: Non-smoker Alcohol: None Drugs: None - *Family History Maternal Family History: Family History (Last Reviewed 09/23/18 @ 15:41 by Renetta Almodovar) Father CAD (coronary artery disease) Hypertension Mother CAD (coronary artery disease) Hypertension Diabetes Brother CAD (coronary artery disease) History Items: Diabetes, Heart Disease, Hypertension Paternal Family History: Family History (Last Reviewed 09/23/18 @ 15:41 by Renetta Almodovar) Father CAD (coronary artery disease) Hypertension Mother CAD (coronary artery disease) Hypertension Diabetes Brother CAD (coronary artery disease) History Items: Heart Disease, Hypertension Review of Systems Constitutional: Reports: Chills, Malaise, Fatigue Eyes: Denies: Blurred vision, Double vision HEENT: Denies: Head Aches, Sinus Congestion, Sinus Drainage Cardiovascular: Denies: Chest Pain, Palpitations Respiratory: Reports: Shortness of Breath Gastrointestinal: Denies: Abdominal Pain, Nausea, Vomiting Genitourinary: Denies: Dysuria Musculoskeletal: Denies: Joint Pain, Joint Tenderness Skin: Denies: Rash, Wounds Neurological: Denies: Numbness, Tingling, Focal weakness Psychiatric: Denies: Anxiety, Depression, Homicidal Ideations, Suicidal Ideations Hematologic/ Lymphatic: Denies: Easy Bruising, Easy Bleeding Patient Problems: Active and Suspected Problems (Last Reviewed 09/23/18 @ 15:41 by Renetta Almodovar) Elevated troponin (Acute) Hyperglycemia (Acute) Acute and chronic respiratory failure with hypoxia (Acute) Sepsis (Acute) NSTEMI (non-ST elevated myocardial infarction) (Acute) COPD exacerbation (Acute) Objective: The patient's most recent lab work, culture data and imaging studies have all been personally reviewed. Respiratory viral panel was positive for both influenza A and RSV. Blood and sputum cultures have been unrevealing to date. - Physical Exam Vitals/I&O's: Vital Signs Temp Pulse Resp BP Pulse Ox 97.5 F L 101 H 16 131/57 H 83 03/04/19 05:25 03/04/19 07:50 03/04/19 07:24 03/04/19 05:25 03/04/19 07:24 Oxygen Flow Rate (L/min) 6 Oxygen Delivery Method Room Air Weight: 150 lb 9.211 oz Body Mass Index (BMI) 29.3 Intake and Output for Last 24 Hours 03/02/19 03/03/19 03/04/19 23:59 23:59 23:59 Intake Total 2345.00 / 2345.00 550 / 550 Output Total 2 / 2 Balance 2343.00 / 2343.00 550 / 550 General: Alert, Cooperative, No apparent distress HEENT: Atraumatic, PERRLA, Normocephalic Oral: No Gingival or Mucosal Lesions/ Ulcerations Neck: Supple, No Nodes, Trachea Midline Lungs: Diminished, Wheezes Cardiovascular: Regular rate, Regular Rhythm, Normal S1, Normal S2 Abdomen: Bowel Sounds Present, Soft, Non Tender Extremities: No clubbing, No cyanosis, No edema Skin: No breakdown Musculoskeletal: No Tenderness to Palpation of Joints or Extremities Lymphatic: No Cervical, Supraclavicular, or Inguinal Adenopathy Neurological: Neuro grossly intact Psych/Mental Status: Normal Affect, Appropriate Labs (Last 48 Hours) 03/03/19 03/03/19 03/03/19 04:55 04:55 07:15 WBC 11.2 H RBC 4.08 L Hgb 11.3 L Hct 38.9 MCV 95.3 D MCH 27.7 MCHC 29.0 L RDW Std Deviation 58.8 H RDW Coeff of Siobhan 16.7 H Plt Count 290 MPV 8.6 Immature Gran % (Auto) 0.600 Neut % (Auto) 77.9 H Lymph % (Auto) 13.[address] [place] % (Auto) 7.6 Eos % (Auto) 0.0 Baso % (Auto) 0.1 Absolute Neuts (auto) 8.7 H Absolute Lymphs (auto) 1.54 Nucleated RBC % 0 Differential Comment Platelet Estimate ADEQUATE Hypochromasia 1+ Anisocytosis 1+ Sodium 139 Potassium 4.2 Chloride 103 Carbon Dioxide 35.0 H Anion Gap 1 L BUN 15 Creatinine 0.57 Estim Creat Clear Calc 75.39 Est GFR (MDRD) Af Amer 139 Est GFR (MDRD) Non-Af 115 BUN/Creatinine Ratio 26.3 H Glucose 192 H Calcium 8.5 Total Bilirubin 0.30 Direct Bilirubin AST 117 H ALT 336 H Alkaline Phosphatase 184 H Total Protein 7.1 Albumin 2.6 L Globulin 4.5 H Albumin/Globulin Ratio 0.6 L Digoxin 1.00 03/04/19 03/04/19 04:55 04:55 WBC 9.7 RBC 4.03 L Hgb 11.0 L Hct 38.3 MCV 95.0 MCH 27.3 MCHC 28.7 L RDW Std Deviation 58.3 H RDW Coeff of [place]obhan 16.6 H Plt Count 299 MPV 8.6 Immature Gran % (Auto) 0.400 Neut % (Auto) 75.9 H Lymph % (Auto) 13.[address] [place] % (Auto) 7.7 Eos % (Auto) 2.2 Baso % (Auto) 0.0 Absolute Neuts (auto) 7.4 Absolute Lymphs (auto) 1.33 Nucleated RBC % 0 Differential Comment SCANNED Platelet Estimate Hypochromasia Anisocytosis Sodium 138 Potassium 4.6 Chloride 102 Carbon Dioxide 36.0 H Anion Gap 0 L BUN 15 Creatinine 0.49 L Estim Creat Clear Calc 87.70 Est GFR (MDRD) Af Amer 165 Est GFR (MDRD) Non-Af 136 BUN/Creatinine Ratio 30.5 H Glucose 178 H Calcium 8.6 Total Bilirubin 0.30 Direct Bilirubin 0.14 AST 77 H ALT 247 H Alkaline Phosphatase 158 H Total Protein 6.7 Albumin 2.4 L Globulin 4.3 H Albumin/Globulin Ratio 0.6 L Digoxin Microbiology 03/01/19 23:47 Sputum, Expectorated/Coughed Gram Stain - Final 03/01/19 23:47 Sputum, Expectorated/Coughed Respiratory Culture - Final 03/01/19 20:37 Mucosa - Nasopharyngeal Respiratory Panel (PCR) - Final Influenza A (Subtype H1) RSV A Clinical Impression(s) from Imaging Studies Chest X-Ray 03/01/19 21:00 IMPRESSION: No acute thoracic pathology. COPD. Electronically Signed: Memo Hammond, at 21:27 EST Tel , Service support , Current Medications Acetaminophen (Tylenol) 650 mg PO Q4H PRN PRN PRN Reason: Pain Score 1-10/Temp > 100.7 F Last Admin: 03/02/19 09:43 Dose: 650 mg Documented by: Albuterol Sulfate (Ventolin Aerosols) 2.5 mg INHALATION Q2H PRN PRN PRN Reason: SOB/Wheezing Albuterol/Ipratropium (Duoneb) 3 ml INHALATION Q4HWA.RT [facility] Last Admin: 03/04/19 07:24 Dose: 3 ml Documented by: Aspirin (Aspirin, Baby) 81 mg PO DAILY@0800 [facility] Last Admin: 03/03/19 09:16 Dose: 81 mg Documented by: Carvedilol (Coreg) 12.5 mg PO BID [facility] Last Admin: 03/03/19 21:49 Dose: 12.5 mg Documented by: Digoxin (Lanoxin) 250 mcg PO DAILY [facility] Last Admin: 03/03/19 09:17 Dose: 250 mcg Documented by: Doxycycline Monohydrate (Doxycycline) 100 mg PO BID [facility] Last Admin: 03/03/19 21:49 Dose: 100 mg Documented by: Enoxaparin Sodium (Lovenox) 70 mg SC BID [facility] Last Admin: 03/03/19 21:50 Dose: 70 mg Documented by: Famotidine (Pepcid) 20 mg PO BID [facility] Last Admin: 03/03/19 21:49 Dose: 20 mg Documented by: Furosemide (Lasix) 20 mg PO DAILY [facility] Last Admin: 03/03/19 09:18 Dose: 20 mg Documented by: Glucagon () 1 mg IM .X1 PRN PRN Reason: Hypoglycemia Guaifenesin (Mucinex) 1,200 mg PO BID [facility] Last Admin: 03/03/19 21:49 Dose: 1,200 mg Documented by: Hydralazine HCl (Apresoline Iv) 10 mg IV Q4H PRN PRN PRN Reason: SBP > 160 Sodium Chloride () 250 mls @ 15 mls/hr IV .[id number] PRN PRN Reason: Saline Flush Sodium Chloride () 250 mls @ 15 mls/hr IV .[id number] PRN PRN Reason: Additional IVPB Infusion Dextrose (Dextrose 10%-Water) 250 mls @ 999 mls/hr IV .Q16M PRN; Protocol PRN Reason: HYPOGLYCEMIA Levothyroxine Sodium (Synthroid) 25 mcg PO DAILY@0600 [facility] Last Admin: 03/04/19 05:27 Dose: 25 mcg Documented by: Losartan Potassium (Cozaar) 50 mg PO DAILY [facility] Last Admin: 03/03/19 09:18 Dose: 50 mg Documented by: Melatonin (Melatonin) 3 mg PO QHS PRN PRN PRN Reason: INSOMNIA Methylprednisolone (Solu-Medrol) 40 mg IV Q8 [facility] Last Admin: 03/04/19 05:28 Dose: 40 mg Documented by: Morphine Sulfate () 2 mg IV Q4H PRN PRN PRN Reason: Pain Score 6-10/10 Last Admin: 03/04/19 05:28 Dose: 2 mg Documented by: Nitroglycerin (Nitrostat) 0.4 mg SUBLINGUAL Q5M PRN PRN Reason: CARDIAC/CHEST PAIN Oseltamivir Phosphate (Tamiflu) 75 mg PO BID [facility] Stop: 03/06/19 22:01 Last Admin: 03/03/19 21:50 Dose: 75 mg Documented by: Oxycodone HCl (Oxyir) 5 mg PO Q4H PRN PRN PRN Reason: Pain Score 4-5/10 Paroxetine HCl (Paxil) 40 mg PO DAILY [facility] Last Admin: 03/03/19 09:17 Dose: 40 mg Documented by: Psyllium Hydrophilic Mucilloid (Metamucil) 1 packet PO DAILY PRN PRN PRN Reason: Constipation Sodium Chloride () 10 - 40 ml IV UD PRN PRN Reason: SALINE FLUSH Last Admin: 03/04/19 05:29 Dose: 10 ml Documented by: Spironolactone (Aldactone) 25 mg PO DAILY [facility] Last Admin: 03/03/19 09:18 Dose: 25 mg Documented by: Tamsulosin HCl (Flomax) 0.4 mg PO QHS [facility] Last Admin: 03/03/19 21:49 Dose: 0.4 mg Documented by: Throat Lozenges (Cepacol Sore Throat Lozenge) 1 lozenge MUCOUS MEM Q2H PRN PRN PRN Reason: Sore Throat/Cough Assessment/Plan All Active Problems (Last Reviewed 09/23/18 @ 15:41 by Renetta Almodovar) Elevated LFTs (Acute) Elevated troponin (Acute) Hyperglycemia (Acute) Acute and chronic respiratory failure with hypoxia (Acute) Sepsis (Acute) NSTEMI (non-ST elevated myocardial infarction) (Acute) COPD exacerbation (Acute) Cardiac tamponade (Acute) RECOMMENDATIONS: 1. Continue Tamiflu, bronchodilators and IV steroids. 2. Wean supplemental oxygen to maintain saturations at or above 90%. 3. Encourage incentive spirometer use and mobilize patient as tolerated. 4. Perform walking oximetry study prior to consideration for discharge home. 5. Outpatient pulmonary follow-up within 2 weeks is strongly recommended. 6. Outpatient PFTs will be ordered at the time of her follow-up office visit in the pulmonary medicine clinic. IMPRESSIONS: 1. Acute on chronic hypoxemic respiratory failure secondary to COPD with exacerbation due to combined influenza A and RSV infection The patient initially presented to the hospital with shortness of breath and was subsequently found to have a COPD exacerbation precipitated by both influenza A and RSV. She remains on Tamiflu, scheduled bronchodilators and IV steroids. I do anticipate a prolonged recovery phase for this patient. She does have a baseline 3 L/min supplemental oxygen requirement at all times. I would strongly recommend that she follow-up with us in the pulmonary medicine clinic upon discharge, as she has been lost to follow-up since 2018. At that time, orders can be placed for pulmonary function studies. 2. Non-ST segment elevation [place] Continue medical management per cardiology recommendations. 3. Continuous tobacco dependency I personally spent 5 minutes discussing the deleterious effects of continued tobacco use with the patient, including modalities which could be utilized to achieve a smoke-free lifestyle. The patient is insistent that she has quit smoking effective her hospital admission. 4. Hypertension/hyperlipidemia/hypothyroidism Complicates care, management, recovery and prognosis. Continue home medications as indicated. This note was generated with [employer] software. It may contain incorrect words, spelling, and punctuation that were not noted in checking the note before signing. Code Visit Inpatient E&M: 28516 Init Hosp L3 - Behavior Interventions Behavior Intervention: 39818 Smoking Cessation 3-10 min
[2019-03-04] MEDS: Aspirin 81 MG TAB.CHEW PO (09:23)
[2019-03-04] MEDS: Carvedilol 12.5 MG Tablet PO (09:23)
[2019-03-04] MEDS: Spironolactone 25 MG Tablet PO (09:23)
[2019-03-04] MEDS: Doxycycline 100 MG CAPSULE PO ×2 (09:24→21:21)
[2019-03-04] MEDS: Losartan Potassium 50 MG Tablet PO (09:24)
[2019-03-04] MEDS: Oseltamivir Phosphate 75 MG Capsule PO ×2 (09:24→21:21)
[2019-03-04] MEDS: Digoxin 250 MCG Tablet PO (09:24)
[2019-03-04] MEDS: Furosemide 20 MG Tablet PO (09:24)
[2019-03-04] MEDS: Enoxaparin 80 MG/0.8 ML Syringe 70 MG SC ×2 (09:25→21:20)
[2019-03-04] MEDS: Famotidine 20 MG Tablet PO ×2 (09:26→21:21)
[2019-03-04] MEDS: Paroxetine 20 MG Tablet 40 MG PO (09:26)
[2019-03-04] MEDS: guaiFENesin 1,200 MG Tablet 1200 MG PO ×2 (09:26→21:21)
--- NOTE | 2019-03-04 09:42 | PCM.PN.CARD ---
Subjectve: She is awake and alert. She denies any ongoing chest discomfort at this time. She is still short of breath and dyspneic. She has not sensed any palpitations or rapid rates. Objective: Vital Signs Temp Pulse Resp BP Pulse Ox 97.4 F L 72 17 137/55 H 94 03/04/19 09:10 03/04/19 09:10 03/04/19 09:10 03/04/19 09:10 03/04/19 09:10 Oxygen Flow Rate (L/min) 6 Oxygen Delivery Method Venturi Mask Weight: 150 lb 9.211 oz Body Mass Index (BMI) 29.3 Intake and Output for Last 24 Hours 03/02/19 03/03/19 03/04/19 23:59 23:59 23:59 Intake Total 2345.00 / 2345.00 550 / 550 Output Total 2 / 2 Balance 2343.00 / 2343.00 550 / 550 General: Awake, Alert, Oriented x 3, Cooperative HEENT: Atraumatic, Normocephalic, PERRL, EOMI, Sclera Non Icteric Oral: Moist Mucosa Neck: Supple, Good ROM, No JVD Lungs: - - Diminished breath sounds bilaterally; bilateral expiratory wheezing Cardiovascular: Regular Rhythm, Normal S1, Normal S2 Abdomen: Bowel Sounds Present, Soft, Non Tender Extremities: No edema Psych/Mental Status: Appropriate 03/04/19 04:55: WBC 9.7, RBC 4.03 L, Hgb 11.0 L, Hct 38.3, MCV 95.0, MCH 27.3, MCHC 28.7 L, Plt Count 299, MPV 8.6, Immature Gran % (Auto) 0.400, Neut % (Auto) 75.9 H, Lymph % (Auto) 13.8 L, [place] % (Auto) 7.7, Eos % (Auto) 2.2, Baso % (Auto) 0.0, Absolute Neuts (auto) 7.4, Nucleated RBC % 0 03/04/19 04:55: Sodium 138, Potassium 4.6, Chloride 102, Carbon Dioxide 36.0 H, Anion Gap 0 L, BUN 15, Creatinine 0.49 L, Est GFR (MDRD) Af Amer 165, Est GFR (MDRD) Non-Af 136, BUN/Creatinine Ratio 30.5 H, Glucose 178 H, Calcium 8.6, Total Bilirubin 0.30, Direct Bilirubin 0.14 Rhythm: Sinus rhythm; nonsustained wide-complex tachycardia ICD interrogation: Performed this a.m.: Preliminary findings: PVCs; runs of supraventricular tachydysrhythmia including on 03-04-2019-a.m.; biventricular pacing 99% of the time Medical Necessity - Tobacco Use Smoking Status: Former smoker Tobacco Use: Non-smoker Assessment/Plan 1. Non-ST segment elevation [place] At the present time she has findings compatible with a non-ST segment elevation [place]. Based upon her previous history of a non-CAD related cardiomyopathy this may be a type II event secondary to supply demand mismatch. This may be brought on by her underlying acute pulmonary disease process. Based upon her echocardiographic images there is concerned that she has developed a Takotsubo syndrome/stress-induced cardiomyopathy. At the present time she will continue to be monitored. She will continue medical management as deemed appropriate. Over time, after she has been treated and improved from her acute respiratory event, consideration will be given as to whether or not she requires repeat evaluation in the cardiac catheterization laboratory. 2. Non-CAD related cardiomyopathy Again she has a history of a non-CAD related cardiomyopathy with diminished LV systolic function. This led her to biventricular pacing. At the moment she has echocardiographic findings appearing compatible with a Takotsubo syndrome/stress-induced cardiomyopathy. She does not appear to have evidence of acute on chronic systolic mediated CHF at the moment. She will continue medical management and evaluation as noted above. 3. Chronic systolic mediated CHF Again at the moment she does not appear to have acute on chronic systolic mediated CHF type symptoms. She will need to continue medical therapy with adjustment as deemed appropriate during her acute respiratory course, etc. 4. Mitral valve regurgitation She does have an element of mitral valve regurgitation. She will continue to be followed by history, exam, and echocardiogram as deemed appropriate. 5. Ventricular ectopy/tachycardia Her ICD was interrogated this a.m. Her findings demonstrate PVCs and what was reported as supraventricular tachyarrhythmias as well as biventricular pacing. At the moment she will continue medical management. This will include an attempt at increasing her beta-donal therapy. Depending upon her findings she may or may not need further medical management such as antiarrhythmic therapy. 6. Biventricular ICD She does have a biventricular ICD in place. This was reassessed today. Her device was reported as functioning appropriately. 7. Hyperlipidemia She will continue lipid-lowering therapy as deemed appropriate. 8. Hypertension She will continue to have her blood pressure monitor. Her medications can be adjusted as needed. 9. Acute respiratory event/COPD exacerbation She will continue evaluation care per internal medicine. She is also being evaluated by pulmonology/critical care medicine. 10. Elevated hepatic transaminase levels Her hepatic studies are being followed. Her statins have been placed on hold. Her repeat hepatic studies have demonstrated a decrease in her levels. She may need further evaluation from a noncardiovascular standpoint. This note was generated using a voice recognition system and there may be incorrect words, spelling or punctuation that were not noted when reviewing the office note prior to saving.
[2019-03-04 11:51] LABS: Magnesium 2.1 mg/dL (1.6-2.6)
--- NOTE | 2019-03-04 15:48 | PCM.PN.HOSP ---
Patient Problems: Active and Suspected Problems (Last Reviewed 09/23/18 @ 15:41 by Renetta Almodovar) Elevated troponin (Acute) Hyperglycemia (Acute) Acute and chronic respiratory failure with hypoxia (Acute) Sepsis (Acute) NSTEMI (non-ST elevated myocardial infarction) (Acute) COPD exacerbation (Acute) Reason for Visit: COPD exacerbation secondary to combined RSV and influenza A, non-STEMI, NSVT and PVCs Objective: Patient continues to be short of breath. Continues to cough and feels chest congestion. Patient also found to have NSVT about 16 beats and had PVCs. Telemetry reviewed. AICD interrogated. Discussed with stitching machine feeder or offbearer and almond huller. Discussed with the nursing staff and respiratory therapist. Vitals/I&O's: Vital Signs Temp Pulse Resp BP Pulse Ox 97.4 F L 75 16 137/55 H 94 03/04/19 09:10 03/04/19 14:42 03/04/19 10:50 03/04/19 09:10 03/04/19 09:10 Oxygen Flow Rate (L/min) 6 Oxygen Delivery Method Venturi Mask Weight: 150 lb 9.211 oz Body Mass Index (BMI) 29.3 Intake and Output for Last 24 Hours 03/02/19 03/03/19 03/04/19 23:59 23:59 23:59 Intake Total 2345.00 / 2345.00 550 / 550 370 / 370 Output Total 2 / 2 Balance 2343.00 / 2343.00 550 / 550 370 / 370 General: Alert, Oriented x3, Cooperative HEENT: Atraumatic, PERRLA, EOMI, Normocephalic Oral: Dry Mucosa Neck: Supple, No JVD, Negative Carotid Bruits Lungs: Diminished - Air entry severely diminished in all lung mccray., Rhonchi, Short of Breath, Tachypneic - Occasionally gets tachypneic on exertion. Cardiovascular: Regular rate, Normal S1, Normal S2, Irregular Rate - With PVCs and NSVT, Murmur - Holosystolic murmur over cardiac apex, - - Biventricular AICD Abdomen: Bowel Sounds Present, Soft, Non Tender, Non-Distended Extremities: Capillary Refill Less than 3 Seconds, Edema Skin: No rashes, No breakdown Musculoskeletal: No Tenderness to Palpation of Joints or Extremities, Arthritic Changes Lymphatic: No Cervical, Supraclavicular, or Inguinal Adenopathy Neurological: Cranial nerves II-XII grossly intact, Deep Tendon Reflexes 2+/4 and Symmetrical, Neuro grossly intact Psych/Mental Status: Normal Affect, Appropriate Microbiology Past 72 Hours 03/01/19 20:50 Blood Culture (Wb) #2 - Anticubital Left Blood Culture - Preliminary No growth in 48 hours. 03/01/19 20:40 Blood Culture (Wb) - Right Hand Blood Culture - Preliminary No growth in 48 hours. 03/01/19 23:47 Sputum, Expectorated/Coughed Gram Stain - Final 03/01/19 23:47 Sputum, Expectorated/Coughed Respiratory Culture - Final 03/01/19 20:37 Mucosa - Nasopharyngeal Respiratory Panel (PCR) - Final Influenza A (Subtype H1) RSV A 03/01/19 20:37 Mucosa - Nasopharyngeal Influenza Types A,B Direct FA (ANGELES) - Final Laboratory Results 03/04/19 04:55: WBC 9.7, RBC 4.03 L, Hgb 11.0 L, Hct 38.3, MCV 95.0, MCH 27.3, MCHC 28.7 L, RDW Std Deviation 58.3 H, RDW Coeff of Siobhan 16.6 H, Plt Count 299, MPV 8.6, Immature Gran % (Auto) 0.400, Neut % (Auto) 75.9 H, Lymph % (Auto) 13.8 L, Oliver % (Auto) 7.7, Eos % (Auto) 2.2, Baso % (Auto) 0.0, Absolute Neuts (auto) 7.4, Absolute Lymphs (auto) 1.33, Nucleated RBC % 0, Differential Comment SCANNED 03/04/19 04:55: Sodium 138, Potassium 4.6, Chloride 102, Carbon Dioxide 36.0 H, Anion Gap 0 L, BUN 15, Creatinine 0.49 L, Estim Creat Clear Calc 87.70, Est GFR (MDRD) Af Amer 165, Est GFR (MDRD) Non-Af 136, BUN/Creatinine Ratio 30.5 H, Glucose 178 H, Calcium 8.6, Total Bilirubin 0.30, Direct Bilirubin 0.14, AST 77 H, ALT 247 H, Alkaline Phosphatase 158 H, Total Protein 6.7, Albumin 2.4 L, Globulin 4.3 H, Albumin/Globulin Ratio 0.6 L 03/04/19 04:55: Magnesium 2.1 Current Medications Acetaminophen (Tylenol) 650 mg PO Q4H PRN PRN PRN Reason: Pain Score 1-10/Temp > 100.7 F Last Admin: 03/02/19 09:43 Dose: 650 mg Documented by: Albuterol Sulfate (Ventolin Aerosols) 2.5 mg INHALATION Q2H PRN PRN PRN Reason: SOB/Wheezing Albuterol/Ipratropium (Duoneb) 3 ml INHALATION Q4HWA.RT [facility] Last Admin: 03/04/19 14:30 Dose: Not Given Documented by: Aspirin (Aspirin, Baby) 81 mg PO DAILY@0800 [facility] Last Admin: 03/04/19 09:23 Dose: 81 mg Documented by: Carvedilol (Coreg) 25 mg PO BID [facility] Digoxin (Lanoxin) 250 mcg PO DAILY [facility] Last Admin: 03/04/19 09:24 Dose: 250 mcg Documented by: Doxycycline Monohydrate (Doxycycline) 100 mg PO BID [facility] Last Admin: 03/04/19 09:24 Dose: 100 mg Documented by: Enoxaparin Sodium (Lovenox) 70 mg SC BID [facility] Last Admin: 03/04/19 09:25 Dose: 70 mg Documented by: Famotidine (Pepcid) 20 mg PO BID [facility] Last Admin: 03/04/19 09:26 Dose: 20 mg Documented by: Furosemide (Lasix) 20 mg PO DAILY [facility] Last Admin: 03/04/19 09:24 Dose: 20 mg Documented by: Glucagon () 1 mg IM .X1 PRN PRN Reason: Hypoglycemia Guaifenesin (Mucinex) 1,200 mg PO BID [facility] Last Admin: 03/04/19 09:26 Dose: 1,200 mg Documented by: Hydralazine HCl (Apresoline Iv) 10 mg IV Q4H PRN PRN PRN Reason: SBP > 160 Sodium Chloride () 250 mls @ 15 mls/hr IV .[id number] PRN PRN Reason: Saline Flush Sodium Chloride () 250 mls @ 15 mls/hr IV .[id number] PRN PRN Reason: Additional IVPB Infusion Dextrose (Dextrose 10%-Water) 250 mls @ 999 mls/hr IV .Q16M PRN; Protocol PRN Reason: HYPOGLYCEMIA Levothyroxine Sodium (Synthroid) 25 mcg PO DAILY@0600 [facility] Last Admin: 03/04/19 05:27 Dose: 25 mcg Documented by: Losartan Potassium (Cozaar) 50 mg PO DAILY [facility] Last Admin: 03/04/19 09:24 Dose: 50 mg Documented by: Melatonin (Melatonin) 3 mg PO QHS PRN PRN PRN Reason: INSOMNIA Methylprednisolone (Solu-Medrol) 40 mg IV Q8 [facility] Last Admin: 03/04/19 05:28 Dose: 40 mg Documented by: Morphine Sulfate () 2 mg IV Q4H PRN PRN PRN Reason: Pain Score 6-10/10 Last Admin: 03/04/19 09:48 Dose: 2 mg Documented by: Nitroglycerin (Nitrostat) 0.4 mg SUBLINGUAL Q5M PRN PRN Reason: CARDIAC/CHEST PAIN Oseltamivir Phosphate (Tamiflu) 75 mg PO BID [facility] Stop: 03/06/19 22:01 Last Admin: 03/04/19 09:24 Dose: 75 mg Documented by: Oxycodone HCl (Oxyir) 5 mg PO Q4H PRN PRN PRN Reason: Pain Score 4-5/10 Paroxetine HCl (Paxil) 40 mg PO DAILY [facility] Last Admin: 03/04/19 09:26 Dose: 40 mg Documented by: Psyllium Hydrophilic Mucilloid (Metamucil) 1 packet PO DAILY PRN PRN PRN Reason: Constipation Sodium Chloride () 10 - 40 ml IV UD PRN PRN Reason: SALINE FLUSH Last Admin: 03/04/19 05:29 Dose: 10 ml Documented by: Spironolactone (Aldactone) 25 mg PO DAILY [facility] Last Admin: 03/04/19 09:23 Dose: 25 mg Documented by: Tamsulosin HCl (Flomax) 0.4 mg PO QHS [facility] Last Admin: 03/03/19 21:49 Dose: 0.4 mg Documented by: Throat Lozenges (Cepacol Sore Throat Lozenge) 1 lozenge MUCOUS MEM Q2H PRN PRN PRN Reason: Sore Throat/Cough STROKE Vital Signs/Narrative: Vital Signs Pulse 03/04/19 14:42 75 Medical Necessity - Tobacco Use Smoking Status: Former smoker Tobacco Use: Non-smoker Assessment/Plan All Active Problems (Last Reviewed 09/23/18 @ 15:41 by Renetta Almodovar) Elevated LFTs (Acute) Elevated troponin (Acute) Hyperglycemia (Acute) Acute and chronic respiratory failure with hypoxia (Acute) Sepsis (Acute) NSTEMI (non-ST elevated myocardial infarction) (Acute) COPD exacerbation (Acute) Cardiac tamponade (Acute) The patient is a 58 y/o F with H/o Chronic Systolic CHF s/p ACID/pacemaker placement, Dilated Cardiomyopathy,Chronic Hypoxic Respiratory Failure with COPD (2.5-3L NC), Former Tobacco use, recent 02/02/19 discharge from [facility] fordx Hepatitis A who presents to the [facility] ED on 03/01/19 with history of dyspnea, wheezing, moderately productive cough without fever or chills x 3 days with progressively worsening malaise, fatigue, poor oral intake prompting ED presentation. 1. Acute Sepsis (tachycardia, tachypnea, hypoxia and leukocytosis) secondary to COPD exacerbation with Acute on Chronic Hypoxic Respiratory Failure: Currently on 35 to 40% FiO2 on Ventimask. Required increased oxygen than baseline. Patient is being admitted in PCU. Continue oxygen support. continue ATC duonebs, PRN albuterol, IV methylprednisolone, HOB, IS parameters, doxycycline, obtain respiratory viral panel and sputum cultures. Respiratory panel, sputum culture and blood cultures x2 are pending. 03/03/2019: Respiratory panel is positive of RSV and influenza A, H1. Patient had interdisciplinary round. Need aggressive chest physiotherapy and incentive spirometry. Discussed with respiratory therapist. Continue antibiotic doxycycline and Tamiflu. 03/04/2019: Discussed with the stitching machine feeder or offbearer. She has prolonged history of smoking and was smoking 3 to 4 cigarettes until admission. Continue bronchodilator, IV Solu-Medrol, chest physiotherapy incentive spirometry and antibiotics and Tamiflu. Expect slow recovery. Pulmonary consult appreciated. 2. NSTEMI: EKG in ED with sinus tachycardia with left bundle branch block with no acute evidence of ischemia, first troponin 0 0.57, second troponin 1.3) 1.2. Discussed with Dr. Yeboah. 2D echo was done and shows picture of Takotsubo cardiomyopathy. She has history of nonischemic cardiomyopathy status post AICD. Previous echo in December 2014 after pericardial effusion status post drainage reported as, trivial to small pericardial effusion mainly around right ventricle. initial trop elevated, 0.575. lunchroom monitor. Discussed with almond huller. Patient needs further stabilization of pulmonary COPD exacerbation and further invasive cardiac work-up if needed. Lipid profile LDL 74, HDL 13; suggestive of dyslipidemia. Magnesium normal. 03/03/2019: Patient does not have chest pain. Electrolytes within normal limit. Elevated troponin mostly secondary to COPD exacerbation/demand ischemia Arrhythmia: NSVT/multiple PVCs: Possible secondary to sepsis. AICD was interrogated. [facility] follow-up reviewed. AICD revealed supraventricular tachyarrhythmia as well as biventricular pacing. Coreg dose was increased; 25 mg twice daily. On digoxin to 50 mcg p.o. daily. Digoxin level normal. 3. Hyperglycemia: Admission glucose 152, A1c 5.5. 4. Recent hepatitis A, acute infection: LFT shows AST 284, ALT 568, alkaline phosphatase 286. Monitor daily LFT. 03/03/2019: Transaminases are improving, ALT 336, AST 117, alkaline phosphatase 184. This most probably secondary to viral infection. CT abdomen done in January 2019 reported as livers mildly fatty infiltrated. Minimal intrahepatic dilatation. CBD 6 mm. GB wall thickening with trace PC fluid. Right upper quadrant sonogram reported as similar enlarged fatty liver with mild thickening of gallbladder wall with sludge. Currently patient does not have abdominal pain. 03/04/2019: LFT shows further improvement, ALT 247, AST 77. 5. Chronic Systolic CHF, Dilated Cardiomyopathy: s/p AICD/pacemaker placement, Continue Asa, spironolactone, losartan, Lasix, digoxin, Coreg, statin. Discontinue IV fluid. AICD interrogated 6. Hypertension: Continue home regimen including Loly lactone, losartan, Lasix, Coreg, PRN hydralazine. 7. Hyperlipidemia: Continue home statin regimen. 8. Obesity: Weight loss and lifestyle changes encouraged. 9. Current nicotine/cigarette smoking: Encourage continued cessation. Patient affirmed that she will quit smoking. 10. Obesity: Weight loss and lifestyle changes encouraged. 11. Anxiety and Depression: Maintain on home paxil regimen. 12. DVT Prophylaxis: SCDs, therapeutic lovenox pending cardiac enzyme trending. 13. CODE status: Full code Microbiology Past 72 Hours 03/01/19 20:50 Blood Culture (Wb) #2 - Anticubital Left Blood Culture - Preliminary No growth in 48 hours. 03/01/19 20:40 Blood Culture (Wb) - Right Hand Blood Culture - Preliminary No growth in 48 hours. 03/01/19 23:47 Sputum, Expectorated/Coughed Gram Stain - Final 03/01/19 23:47 Sputum, Expectorated/Coughed Respiratory Culture - Final 03/01/19 20:37 Mucosa - Nasopharyngeal Respiratory Panel (PCR) - Final Influenza A (Subtype H1) RSV A 03/01/19 20:37 Mucosa - Nasopharyngeal Influenza Types A,B Direct FA (ANGELES) - Final Laboratory Results 03/04/19 04:55: WBC 9.7, RBC 4.03 L, Hgb 11.0 L, Hct 38.3, MCV 95.0, MCH 27.3, MCHC 28.7 L, RDW Std Deviation 58.3 H, RDW Coeff of Siobhan 16.6 H, Plt Count 299, MPV 8.6, Immature Gran % (Auto) 0.400, Neut % (Auto) 75.9 H, Lymph % (Auto) 13.8 L, Oliver % (Auto) 7.7, Eos % (Auto) 2.2, Baso % (Auto) 0.0, Absolute Neuts (auto) 7.4, Absolute Lymphs (auto) 1.33, Nucleated RBC % 0, Differential Comment SCANNED 03/04/19 04:55: Sodium 138, Potassium 4.6, Chloride 102, Carbon Dioxide 36.0 H, Anion Gap 0 L, BUN 15, Creatinine 0.49 L, Estim Creat Clear Calc 87.70, Est GFR (MDRD) Af Amer 165, Est GFR (MDRD) Non-Af 136, BUN/Creatinine Ratio 30.5 H, Glucose 178 H, Calcium 8.6, Total Bilirubin 0.30, Direct Bilirubin 0.14, AST 77 H, ALT 247 H, Alkaline Phosphatase 158 H, Total Protein 6.7, Albumin 2.4 L, Globulin 4.3 H, Albumin/Globulin Ratio 0.6 L 03/04/19 04:55: Magnesium 2.1 Clinical Impression(s) from Imaging Studies Chest X-Ray 03/01/19 21:00 IMPRESSION: No acute thoracic pathology. COPD. Total time of the visit including total time spent in counseling or coordination of care, (more than 50% of the total time, spent in obtaining medical information from nurses and other ancillary care providers), interdisciplinary rounds, discussion with consultants and review of medical record is 40 minutes Code Visit Inpatient E&M: [id number] [facility]
--- NOTE | 2019-03-04 15:52 | CASEMGMT ---
RN CM Note: Call to [facility] to update pt is still in hospital and staff will call when dc'd. Green Sheet on chart. Lakesha GAMBINON RN ACM
--- NOTE | 2019-03-04 15:56 | CASEMGMT ---
RN CM Note: Pt remains on 50% VM. Per PT/OT further therapy is recommended. Undetermined if pt will be able to return home or will need SNF stay as her Respiratory status is not at baseline. Pt has Home O2 3L with Walt, portable tanks. -Call to [facility] to update pt is still in hospital and staff will call when dc'd. Green Sheet on chart for [facility]. Lakesha GAMBINON RN AC
[2019-03-04] MEDS: Tamsulosin HCl 0.4 MG Capsule PO (21:21)
[2019-03-04] MEDS: Carvedilol 25 MG Tablet PO (21:21)
[2019-03-05] VITALS (15 sets, daily range): BP systolic 117–149; BP diastolic 53–68; PULSE 66–97; RESP 18–20; TEMP 36.6–37.3; O2SAT 91–97
[2019-03-05] MEDS: Levothyroxine 25 MCG TABLET PO (05:10)
[2019-03-05] MEDS: 0.9% Saline Lock 10 ML Syringe IV ×5 (05:10→22:35)
[2019-03-05] MEDS: Morphine 2 MG/ML Syringe IV ×4 (05:24→22:35)
[2019-03-05] MEDS: Ipratropium/Albuterol Sulfate 3 ML AMPUL.NEB INHALATION ×3 (07:46→18:38)
--- NOTE | 2019-03-05 07:50 | PCM.PN.PUL ---
Patient Problems: Active and Suspected Problems (Last Reviewed 09/23/18 @ 15:41 by Renetta Almodovar) Elevated troponin (Acute) Hyperglycemia (Acute) Acute and chronic respiratory failure with hypoxia (Acute) Sepsis (Acute) NSTEMI (non-ST elevated myocardial infarction) (Acute) COPD exacerbation (Acute) Subjective: The patient was seen and examined at the bedside this morning. Events from the last 24 hours have been reviewed. The patient is currently afebrile, hemodynamically stable and maintaining appropriate oxygen saturations on a 50% Ventimask. Shortness of breath and cough persist. Objective: The patient's most recent lab work, culture data and imaging studies have all been personally reviewed. Respiratory viral panel was positive for both influenza A and RSV. - Physical Exam Vitals/I&O's: Vital Signs Temp Pulse Resp BP Pulse Ox 98.5 F 80 18 117/54 L 97 03/05/19 03:15 03/05/19 06:45 03/05/19 03:15 03/05/19 03:15 03/05/19 03:15 Oxygen Flow Rate (L/min) 6 Oxygen Delivery Method Venturi Mask Weight: 150 lb 5.684 oz Body Mass Index (BMI) 29.3 Intake and Output for Last 24 Hours 03/03/19 03/04/19 03/05/19 23:59 23:59 23:59 Intake Total 550 / 550 740 / 740 100 / 100 Balance 550 / 550 740 / 740 100 / 100 General: Alert, No apparent distress HEENT: Atraumatic, Normocephalic Oral: No Gingival or Mucosal Lesions/ Ulcerations Neck: Supple, No Nodes, Trachea Midline Lungs: Diminished, Wheezes Cardiovascular: Regular rate, Regular Rhythm, Normal S1, Normal S2 Abdomen: Bowel Sounds Present, Soft, Non Tender Extremities: No clubbing, No cyanosis, No edema Skin: No breakdown Musculoskeletal: No Tenderness to Palpation of Joints or Extremities Lymphatic: No Cervical, Supraclavicular, or Inguinal Adenopathy Neurological: Neuro grossly intact Psych/Mental Status: Normal Affect, Appropriate Labs (Last 48 Hours) 03/03/19 03/04/19 03/04/19 07:15 04:55 04:55 WBC 9.7 RBC 4.03 L Hgb 11.0 L Hct 38.3 MCV 95.0 MCH 27.3 MCHC 28.7 L RDW Std Deviation 58.3 H RDW Coeff of Siobhan 16.6 H Plt Count 299 MPV 8.6 Immature Gran % (Auto) 0.400 Neut % (Auto) 75.9 H Lymph % (Auto) 13.8 L Estill % (Auto) 7.7 Eos % (Auto) 2.2 Baso % (Auto) 0.0 Absolute Neuts (auto) 7.4 Absolute Lymphs (auto) 1.33 Nucleated RBC % 0 Differential Comment SCANNED Sodium 138 Potassium 4.6 Chloride 102 Carbon Dioxide 36.0 H Anion Gap 0 L BUN 15 Creatinine 0.49 L Estim Creat Clear Calc 87.70 Est GFR (MDRD) Af Amer 165 Est GFR (MDRD) Non-Af 136 BUN/Creatinine Ratio 30.5 H Glucose 178 H Calcium 8.6 Magnesium Total Bilirubin 0.30 Direct Bilirubin 0.14 AST 77 H ALT 247 H Alkaline Phosphatase 158 H Total Protein 6.7 Albumin 2.4 L Globulin 4.3 H Albumin/Globulin Ratio 0.6 L Digoxin 1.00 03/04/19 04:55 WBC RBC Hgb Hct MCV MCH MCHC RDW Std Deviation RDW Coeff of Siobhan Plt Count MPV Immature Gran % (Auto) Neut % (Auto) Lymph % (Auto) Estill % (Auto) Eos % (Auto) Baso % (Auto) Absolute Neuts (auto) Absolute Lymphs (auto) Nucleated RBC % Differential Comment Sodium Potassium Chloride Carbon Dioxide Anion Gap BUN Creatinine Estim Creat Clear Calc Est GFR (MDRD) Af Amer Est GFR (MDRD) Non-Af BUN/Creatinine Ratio Glucose Calcium Magnesium 2.1 Total Bilirubin Direct Bilirubin AST ALT Alkaline Phosphatase Total Protein Albumin Globulin Albumin/Globulin Ratio Digoxin Microbiology 03/01/19 20:50 Blood Culture (Wb) #2 - Anticubital Left Blood Culture - Preliminary No growth in 48 hours. 03/01/19 20:40 Blood Culture (Wb) - Right Hand Blood Culture - Preliminary No growth in 48 hours. 03/01/19 23:47 Sputum, Expectorated/Coughed Gram Stain - Final 03/01/19 23:47 Sputum, Expectorated/Coughed Respiratory Culture - Final Clinical Impression(s) from Imaging Studies Chest X-Ray 03/01/19 21:00 IMPRESSION: No acute thoracic pathology. COPD. Electronically Signed: Memo Hammond, at 21:27 EST Tel , Service support , Current Medications Acetaminophen (Tylenol) 650 mg PO Q4H PRN PRN PRN Reason: Pain Score 1-10/Temp > 100.7 F Last Admin: 03/02/19 09:43 Dose: 650 mg Documented by: Albuterol Sulfate (Ventolin Aerosols) 2.5 mg INHALATION Q2H PRN PRN PRN Reason: SOB/Wheezing Albuterol/Ipratropium (Duoneb) 3 ml INHALATION Q4HWA.RT [facility] Last Admin: 03/05/19 07:46 Dose: 3 ml Documented by: Aspirin (Aspirin, Baby) 81 mg PO DAILY@0800 [facility] Last Admin: 03/04/19 09:23 Dose: 81 mg Documented by: Carvedilol (Coreg) 25 mg PO BID [facility] Last Admin: 03/04/19 21:21 Dose: 25 mg Documented by: Digoxin (Lanoxin) 250 mcg PO DAILY [facility] Last Admin: 03/04/19 09:24 Dose: 250 mcg Documented by: Doxycycline Monohydrate (Doxycycline) 100 mg PO BID [facility] Last Admin: 03/04/19 21:21 Dose: 100 mg Documented by: Enoxaparin Sodium (Lovenox) 70 mg SC BID [facility] Last Admin: 03/04/19 21:20 Dose: 70 mg Documented by: Famotidine (Pepcid) 20 mg PO BID [facility] Last Admin: 03/04/19 21:21 Dose: 20 mg Documented by: Furosemide (Lasix) 20 mg PO DAILY [facility] Last Admin: 03/04/19 09:24 Dose: 20 mg Documented by: Glucagon () 1 mg IM .X1 PRN PRN Reason: Hypoglycemia Guaifenesin (Mucinex) 1,200 mg PO BID [facility] Last Admin: 03/04/19 21:21 Dose: 1,200 mg Documented by: Hydralazine HCl (Apresoline Iv) 10 mg IV Q4H PRN PRN PRN Reason: SBP > 160 Sodium Chloride () 250 mls @ 15 mls/hr IV .[id number] PRN PRN Reason: Saline Flush Sodium Chloride () 250 mls @ 15 mls/hr IV .[id number] PRN PRN Reason: Additional IVPB Infusion Dextrose (Dextrose 10%-Water) 250 mls @ 999 mls/hr IV .Q16M PRN; Protocol PRN Reason: HYPOGLYCEMIA Levothyroxine Sodium (Synthroid) 25 mcg PO DAILY@0600 [facility] Last Admin: 03/05/19 05:10 Dose: 25 mcg Documented by: Losartan Potassium (Cozaar) 50 mg PO DAILY [facility] Last Admin: 03/04/19 09:24 Dose: 50 mg Documented by: Melatonin (Melatonin) 3 mg PO QHS PRN PRN PRN Reason: INSOMNIA Methylprednisolone (Solu-Medrol) 40 mg IV Q8 [facility] Last Admin: 03/05/19 05:10 Dose: 40 mg Documented by: Morphine Sulfate () 2 mg IV Q4H PRN PRN PRN Reason: Pain Score 6-10/10 Last Admin: 03/05/19 05:24 Dose: 2 mg Documented by: Nitroglycerin (Nitrostat) 0.4 mg SUBLINGUAL Q5M PRN PRN Reason: CARDIAC/CHEST PAIN Oseltamivir Phosphate (Tamiflu) 75 mg PO BID [facility] Stop: 03/06/19 22:01 Last Admin: 03/04/19 21:21 Dose: 75 mg Documented by: Oxycodone HCl (Oxyir) 5 mg PO Q4H PRN PRN PRN Reason: Pain Score 4-5/10 Paroxetine HCl (Paxil) 40 mg PO DAILY [facility] Last Admin: 03/04/19 09:26 Dose: 40 mg Documented by: Psyllium Hydrophilic Mucilloid (Metamucil) 1 packet PO DAILY PRN PRN PRN Reason: Constipation Sodium Chloride () 10 - 40 ml IV UD PRN PRN Reason: SALINE FLUSH Last Admin: 03/05/19 05:26 Dose: 10 ml Documented by: Spironolactone (Aldactone) 25 mg PO DAILY [facility] Last Admin: 03/04/19 09:23 Dose: 25 mg Documented by: Tamsulosin HCl (Flomax) 0.4 mg PO QHS [facility] Last Admin: 03/04/19 21:21 Dose: 0.4 mg Documented by: Throat Lozenges (Cepacol Sore Throat Lozenge) 1 lozenge MUCOUS MEM Q2H PRN PRN PRN Reason: Sore Throat/Cough Medical Necessity - Tobacco Use Smoking Status: Former smoker Tobacco Use: Non-smoker Assessment/Plan All Active Problems (Last Reviewed 09/23/18 @ 15:41 by Renetta Almodovar) Elevated LFTs (Acute) Elevated troponin (Acute) Hyperglycemia (Acute) Acute and chronic respiratory failure with hypoxia (Acute) Sepsis (Acute) NSTEMI (non-ST elevated myocardial infarction) (Acute) COPD exacerbation (Acute) Cardiac tamponade (Acute) RECOMMENDATIONS: 1. Continue Tamiflu, bronchodilators and IV steroids. I do anticipate a prolonged recovery phase for this patient. 2. Wean supplemental oxygen to maintain saturations at or above 90%. 3. Encourage incentive spirometer use and mobilize patient as tolerated. 4. Perform walking oximetry study prior to consideration for discharge home. 5. Outpatient pulmonary follow-up within 2 weeks is strongly recommended. 6. Outpatient PFTs will be ordered at the time of her follow-up office visit in the pulmonary medicine clinic. IMPRESSIONS: 1. Acute on chronic hypoxemic respiratory failure secondary to COPD with exacerbation due to combined influenza A and RSV infection The patient initially presented to the hospital with shortness of breath and was subsequently found to have a COPD exacerbation precipitated by both influenza A and RSV. She remains on Tamiflu, scheduled bronchodilators and IV steroids. I do anticipate a prolonged recovery phase for this patient. She does have a baseline 3 L/min supplemental oxygen requirement at all times. I would strongly recommend that she follow-up with us in the pulmonary medicine clinic upon discharge, as she has been lost to follow-up since 2018. At that time, orders can be placed for pulmonary function studies. 2. Non-ST segment elevation [place] Continue medical management per cardiology recommendations. 3. Continuous tobacco dependency Smoking cessation counseling was provided. 4. Hypertension/hyperlipidemia/hypothyroidism Complicates care, management, recovery and prognosis. Continue home medications as indicated. This note was generated with [employer] software. It may contain incorrect words, spelling, and punctuation that were not noted in checking the note before signing. Code Visit Inpatient E&M: 72062 Subs Hosp L2
[2019-03-05] MEDS: Doxycycline 100 MG CAPSULE PO ×2 (08:38→22:44)
[2019-03-05] MEDS: guaiFENesin 1,200 MG Tablet 1200 MG PO ×2 (08:38→22:43)
[2019-03-05] MEDS: Oseltamivir Phosphate 75 MG Capsule PO ×2 (08:38→22:43)
[2019-03-05] MEDS: Aspirin 81 MG TAB.CHEW PO (08:38)
[2019-03-05] MEDS: Spironolactone 25 MG Tablet PO (08:39)
[2019-03-05] MEDS: Carvedilol 25 MG Tablet PO ×2 (08:39→22:44)
[2019-03-05] MEDS: Enoxaparin 80 MG/0.8 ML Syringe 70 MG SC ×2 (08:39→22:44)
[2019-03-05] MEDS: Famotidine 20 MG Tablet PO ×2 (08:39→22:44)
[2019-03-05] MEDS: Losartan Potassium 50 MG Tablet PO (08:39)
[2019-03-05] MEDS: Furosemide 20 MG Tablet PO (08:39)
[2019-03-05] MEDS: Digoxin 250 MCG Tablet PO (08:39)
[2019-03-05] MEDS: Paroxetine 20 MG Tablet 40 MG PO (08:39)
[2019-03-05 09:19] LABS: Absolute Lymphocyte Count 1.49 X10^3/uL (0.83-4.51); Basophil# 0.02 X10^3/uL; Basophil% 0.2 % (0-1); Hematocrit 39.5 % (37-47); Hemoglobin 11.4 g/dL (12.0-15.0); Lymphocyte # 1.49 X10^3/ul (4.0); Lymphocyte % 13.4 % (19-41); Mean Corp Hgb Conc 28.9 g/dL (32-36); Mean Corpuscular Hgb 27.4 pg (27.0-32.0); Mean Platelet Vol. 8.9 fl (6.2-12.0); Monocyte# 0.62 X10^3/uL; Monocyte% 5.6 % (0-10); NRBC Flagged by Analyzer 0 % (0-5); Neutrophil # 8.95 X10^3/uL (2.7-7.7); Neutrophil % 80.4 % (47-70); Platelet Count 321 K/mm3 (150-450); RBC Distribution Width CV 15.9 % (11.6-14.6); RBC Distribution Width SD 56.1 fl (35.1-43.9); Red Blood Count 4.16 M/mm3 (4.2-5.4); White Blood Count 11.1 K/mm3 (4.4-11.0)
[2019-03-05 09:26] LABS: ALB/GLOB Ratio 0.5 RATIO (0.9-2.4); AST(SGOT) 50 U/L (15-37); Alanine Aminotransfer ALT/SGPT 193 U/L (13-56); Albumin, Serum 2.4 g/dL (3.2-5.0); Alkaline Phosphatase 148 U/L (45-117); Anion Gap -2 (5-15); BUN 18 mg/dL (7-18); BUN/Creat Ratio 35.5 RATIO (10-20); Calcium,Total 8.9 mg/dL (8.5-10.1); Chloride 101 mmol/L (98-107); Creatinine, Serum 0.51 mg/dL (0.55-1.02); EST Glomerular Filtration Rate 131 mL/min (>60); Est Glom Filt Rate - Afr Amer 159 mL/min (>60); Estimated Creatinine Clearance 84.26 ml/min; Globulin 4.4 g/dL (2.2-4.2); Glucose 218 mg/dL (74-106); Magnesium 2.2 mg/dL (1.6-2.6); Potassium 4.7 mmol/L (3.5-5.1); Protein, Total 6.8 g/dL (6.4-8.2); Sodium Level 137 mmol/L (136-145)
[2019-03-05 09:28] LABS: Phosphorus 3.2 mg/dL (2.5-4.9)
--- NOTE | 2019-03-05 13:41 | PN_ITS ---
Patient Problems: Active and Suspected Problems (Last Reviewed 09/23/18 @ 15:41 by Renetta Almodovar) Elevated troponin (Acute) Hyperglycemia (Acute) Acute and chronic respiratory failure with hypoxia (Acute) Sepsis (Acute) NSTEMI (non-ST elevated myocardial infarction) (Acute) COPD exacerbation (Acute) Reason for Visit: COPD exacerbation. Elevated troponin. Patient sitting in the chair. Objective: Patient blood pressure is controlled. No major change in weight. Vitals/I&O's: Vital Signs Temp Pulse Resp BP Pulse Ox 98.5 F 66 18 140/68 H 95 03/05/19 12:50 03/05/19 12:50 03/05/19 12:50 03/05/19 12:50 03/05/19 12:50 Oxygen Flow Rate (L/min) 6 Oxygen Delivery Method Nasal Cannula Weight: 150 lb 5.684 oz Body Mass Index (BMI) 29.3 Intake and Output for Last 24 Hours 03/03/19 03/04/19 03/05/19 23:59 23:59 23:59 Intake Total 550 / 550 740 / 740 340 / 340 Balance 550 / 550 740 / 740 340 / 340 General: Alert, Oriented x3, Cooperative HEENT: Atraumatic, PERRLA, EOMI, Normocephalic Neck: Supple, No JVD, Negative Carotid Bruits Lungs: Diminished - Air entry severely diminished but improvement than before, Rhonchi, Short of Breath Cardiovascular: Regular rate, Regular Rhythm, Normal S1, Normal S2, No murmurs Abdomen: Bowel Sounds Present, Soft, Non Tender, Non-Distended Extremities: No edema, Capillary Refill Less than 3 Seconds Skin: No rashes, No breakdown Musculoskeletal: No Tenderness to Palpation of Joints or Extremities, Arthritic Changes Lymphatic: No Cervical, Supraclavicular, or Inguinal Adenopathy Neurological: Cranial nerves II-XII grossly intact, Deep Tendon Reflexes 2+/4 and Symmetrical, Neuro grossly intact Psych/Mental Status: Normal Affect, Appropriate Microbiology Past 72 Hours 03/01/19 20:50 Blood Culture (Wb) #2 - Anticubital Left Blood Culture - Preliminary No growth in 48 hours. 03/01/19 20:40 Blood Culture (Wb) - Right Hand Blood Culture - Preliminary No growth in 48 hours. 03/01/19 23:47 Sputum, Expectorated/Coughed Gram Stain - Final 03/01/19 23:47 Sputum, Expectorated/Coughed Respiratory Culture - Final 03/01/19 20:37 Mucosa - Nasopharyngeal Respiratory Panel (PCR) - Final Influenza A (Subtype H1) RSV A Laboratory Results 03/05/19 08:46: WBC 11.1 H, RBC 4.16 L, Hgb 11.4 L, Hct 39.5, MCV 95.0, MCH 27.4, MCHC 28.9 L, RDW Std Deviation 56.1 H, RDW Coeff of Siobhan 15.9 H, Plt Count 321, MPV 8.9, Immature Gran % (Auto) 0.400, Neut % (Auto) 80.4 H, Lymph % (Auto) 13.4 L, Mercer % (Auto) 5.6, Eos % (Auto) 0.0, Baso % (Auto) 0.2, Absolute Neuts (auto) 9.0 H, Absolute Lymphs (auto) 1.49, Nucleated RBC % 0 03/05/19 08:46: Sodium 137, Potassium 4.7, Chloride 101, Carbon Dioxide 38.0 H, Anion Gap -2 L, BUN 18, Creatinine 0.51 L, Estim Creat Clear Calc 84.26, Est GFR (MDRD) Af Amer 159, Est GFR (MDRD) Non-Af 131, BUN/Creatinine Ratio 35.5 H, Glucose 218 H, Calcium 8.9, Magnesium 2.2, Total Bilirubin 0.20, AST 50 H, ALT 193 H, Alkaline Phosphatase 148 H, Total Protein 6.8, Albumin 2.4 L, Globulin 4.4 H, Albumin/Globulin Ratio 0.5 L 03/05/19 08:46: Phosphorus 3.2 Current Medications Acetaminophen (Tylenol) 650 mg PO Q4H PRN PRN PRN Reason: Pain Score 1-10/Temp > 100.7 F Last Admin: 03/02/19 09:43 Dose: 650 mg Documented by: Albuterol Sulfate (Ventolin Aerosols) 2.5 mg INHALATION Q2H PRN PRN PRN Reason: SOB/Wheezing Albuterol/Ipratropium (Duoneb) 3 ml INHALATION Q4HWA.RT [facility] Last Admin: 03/05/19 11:20 Dose: Not Given Documented by: Aspirin (Aspirin, Baby) 81 mg PO DAILY@0800 [facility] Last Admin: 03/05/19 08:38 Dose: 81 mg Documented by: Carvedilol (Coreg) 25 mg PO BID [facility] Last Admin: 03/05/19 08:39 Dose: 25 mg Documented by: Digoxin (Lanoxin) 250 mcg PO DAILY [facility] Last Admin: 03/05/19 08:39 Dose: 250 mcg Documented by: Doxycycline Monohydrate (Doxycycline) 100 mg PO BID [facility] Last Admin: 03/05/19 08:38 Dose: 100 mg Documented by: Enoxaparin Sodium (Lovenox) 70 mg SC BID [facility] Last Admin: 03/05/19 08:39 Dose: 70 mg Documented by: Famotidine (Pepcid) 20 mg PO BID [facility] Last Admin: 03/05/19 08:39 Dose: 20 mg Documented by: Furosemide (Lasix) 20 mg PO DAILY [facility] Last Admin: 03/05/19 08:39 Dose: 20 mg Documented by: Glucagon () 1 mg IM .X1 PRN PRN Reason: Hypoglycemia Guaifenesin (Mucinex) 1,200 mg PO BID [facility] Last Admin: 03/05/19 08:38 Dose: 1,200 mg Documented by: Hydralazine HCl (Apresoline Iv) 10 mg IV Q4H PRN PRN PRN Reason: SBP > 160 Sodium Chloride () 250 mls @ 15 mls/hr IV .[id number] PRN PRN Reason: Saline Flush Sodium Chloride () 250 mls @ 15 mls/hr IV .[id number] PRN PRN Reason: Additional IVPB Infusion Dextrose (Dextrose 10%-Water) 250 mls @ 999 mls/hr IV .Q16M PRN; Protocol PRN Reason: HYPOGLYCEMIA Levothyroxine Sodium (Synthroid) 25 mcg PO DAILY@0600 [facility] Last Admin: 03/05/19 05:10 Dose: 25 mcg Documented by: Losartan Potassium (Cozaar) 50 mg PO DAILY [facility] Last Admin: 03/05/19 08:39 Dose: 50 mg Documented by: Melatonin (Melatonin) 3 mg PO QHS PRN PRN PRN Reason: INSOMNIA Methylprednisolone (Solu-Medrol) 40 mg IV Q8 [facility] Last Admin: 03/05/19 12:54 Dose: 40 mg Documented by: Morphine Sulfate () 2 mg IV Q4H PRN PRN PRN Reason: Pain Score 6-10/10 Last Admin: 03/05/19 12:51 Dose: 2 mg Documented by: Nitroglycerin (Nitrostat) 0.4 mg SUBLINGUAL Q5M PRN PRN Reason: CARDIAC/CHEST PAIN Oseltamivir Phosphate (Tamiflu) 75 mg PO BID [facility] Stop: 03/06/19 22:01 Last Admin: 03/05/19 08:38 Dose: 75 mg Documented by: Oxycodone HCl (Oxyir) 5 mg PO Q4H PRN PRN PRN Reason: Pain Score 4-5/10 Paroxetine HCl (Paxil) 40 mg PO DAILY [facility] Last Admin: 03/05/19 08:39 Dose: 40 mg Documented by: Psyllium Hydrophilic Mucilloid (Metamucil) 1 packet PO DAILY PRN PRN PRN Reason: Constipation Sodium Chloride () 10 - 40 ml IV UD PRN PRN Reason: SALINE FLUSH Last Admin: 03/05/19 12:51 Dose: 10 ml Documented by: Spironolactone (Aldactone) 25 mg PO DAILY [facility] Last Admin: 03/05/19 08:39 Dose: 25 mg Documented by: Tamsulosin HCl (Flomax) 0.4 mg PO QHS [facility] Last Admin: 03/04/19 21:21 Dose: 0.4 mg Documented by: Throat Lozenges (Cepacol Sore Throat Lozenge) 1 lozenge MUCOUS MEM Q2H PRN PRN PRN Reason: Sore Throat/Cough STROKE Vital Signs/Narrative: Vital Signs Temp Pulse Resp BP Pulse Ox 03/05/19 12:50 98.5 F 66 18 140/68 H 95 03/05/19 11:10 70 03/05/19 11:05 94 Medical Necessity - Tobacco Use Smoking Status: Former smoker Tobacco Use: Non-smoker Assessment/Plan All Active Problems (Last Reviewed 09/23/18 @ 15:41 by Renetta Almodovar) Elevated LFTs (Acute) Elevated troponin (Acute) Hyperglycemia (Acute) Acute and chronic respiratory failure with hypoxia (Acute) Sepsis (Acute) NSTEMI (non-ST elevated myocardial infarction) (Acute) COPD exacerbation (Acute) Cardiac tamponade (Acute) The patient is a 58 y/o F with H/o Chronic Systolic CHF s/p ACID/pacemaker placement, Dilated Cardiomyopathy,Chronic Hypoxic Respiratory Failure with COPD (2.5-3L NC), Former Tobacco use, recent 02/02/[address] [facility] fordx Hepatitis A who presents to the [facility] ED on 03/01/19 with history of dyspnea, wheezing, moderately productive cough without fever or chills x 3 days with progressively worsening malaise, fatigue, poor oral intake prompting ED presentation. 1. Acute Sepsis (tachycardia, tachypnea, hypoxia and leukocytosis) secondary to COPD exacerbation with Acute on Chronic Hypoxic Respiratory Failure: Currently on 35 to 40% FiO2 on Ventimask. Required increased oxygen than baseline. Patient is being admitted in PCU. Continue oxygen support. continue ATC duonebs, PRN albuterol, IV methylprednisolone, HOB, IS parameters, doxycycline, obtain respiratory viral panel and sputum cultures. Respiratory panel, sputum culture and blood cultures x2 are pending. 03/03/2019: Respiratory panel is positive of RSV and influenza A, H1. Patient had interdisciplinary round. Need aggressive chest physiotherapy and incentive spirometry. Discussed with respiratory therapist. Continue antibiotic doxycycline and Tamiflu. 03/04/2019: Discussed with the nurse case management. She has prolonged history of smoking and was smoking 3 to 4 cigarettes until admission. Continue bronchodilator, IV Solu-Medrol, chest physiotherapy incentive spirometry and antibiotics and Tamiflu. Expect slow recovery. Pulmonary consult appreciated. 03/05/2019: Continue same treatment. Slow progress and recovery is expected. 2. NSTEMI: EKG in ED with sinus tachycardia with left bundle branch block with no acute evidence of ischemia, first troponin 0 0.57, second troponin 1.3) 1.2. Discussed with Dr. Yeboah. 2D echo was done and shows picture of Takotsubo cardiomyopathy. She has history of nonischemic cardiomyopathy status post AICD. Previous echo in December 2014 after pericardial effusion status post drainage reported as, trivial to small pericardial effusion mainly around right ventricle. initial trop elevated, 0.575. environmental monitoring specialist. Discussed with rn documentation specialist. Patient needs further stabilization of pulmonary COPD exacerbation and further invasive cardiac work-up if needed. Lipid profile LDL 74, HDL 13; suggestive of dyslipidemia. Magnesium normal. 03/03/2019: Patient does not have chest pain. Electrolytes within normal limit. Elevated troponin mostly secondary to COPD exacerbation/demand ischemia Arrhythmia: NSVT/multiple PVCs: Possible secondary to sepsis. AICD was interrogated. [employer] follow-up reviewed. AICD revealed supraventricular tachyarrhythmia as well as biventricular pacing. Coreg dose was increased; 25 mg twice daily. On digoxin to 50 mcg p.o. daily. Digoxin level normal. 3. Hyperglycemia: Admission glucose 152, A1c 5.5. 4. Recent hepatitis A, acute infection: LFT shows AST 284, ALT 568, alkaline phosphatase 286. Monitor daily LFT. 03/03/2019: Transaminases are improving, ALT 336, AST 117, alkaline phosphatase 184. This most probably secondary to viral infection. CT abdomen done in January 2019 reported as livers mildly fatty infiltrated. Minimal intrahepatic dilatation. CBD 6 mm. GB wall thickening with trace PC fluid. Right upper quadrant sonogram reported as similar enlarged fatty liver with mild thickening of gallbladder wall with sludge. Currently patient does not have abdominal pain. 03/04/2019: LFT shows further improvement, ALT 247, AST 77. : Very gradual improvement in LFT. AST 50 H, ALT 193 H, Alkaline Phosphatase 148 H 5. Chronic Systolic CHF, Dilated Cardiomyopathy: s/p AICD/pacemaker placement, Continue Asa, spironolactone, losartan, Lasix, digoxin, Coreg, statin. Discontinue IV fluid. AICD interrogated 6. Hypertension: Continue home regimen including Loly lactone, losartan, Lasix, Coreg, PRN hydralazine. 7. Hyperlipidemia: Continue home statin regimen. 8. Obesity: Weight loss and lifestyle changes encouraged. 9. Current nicotine/cigarette smoking: Encourage continued cessation. Patient affirmed that she will quit smoking. 10. Obesity: Weight loss and lifestyle changes encouraged. 11. Anxiety and Depression: Maintain on home paxil regimen. 12. DVT Prophylaxis: SCDs, therapeutic lovenox pending cardiac enzyme trending. 13. CODE status: Full code Microbiology Past 72 Hours 03/01/19 20:50 Blood Culture (Wb) #2 - Anticubital Left Blood Culture - Preliminary No growth in 48 hours. 03/01/19 20:40 Blood Culture (Wb) - Right Hand Blood Culture - Preliminary No growth in 48 hours. 03/01/19 23:47 Sputum, Expectorated/Coughed Gram Stain - Final 03/01/19 23:47 Sputum, Expectorated/Coughed Respiratory Culture - Final 03/01/19 20:37 Mucosa - Nasopharyngeal Respiratory Panel (PCR) - Final Influenza A (Subtype H1) RSV A Laboratory Results 03/05/19 08:46: WBC 11.1 H, RBC 4.16 L, Hgb 11.4 L, Hct 39.5, MCV 95.0, MCH 27.4, MCHC 28.9 L, RDW Std Deviation 56.1 H, RDW Coeff of Siobhan 15.9 H, Plt Count 321, MPV 8.9, Immature Gran % (Auto) 0.400, Neut % (Auto) 80.4 H, Lymph % (Auto) 13.4 L, Mercer % (Auto) 5.6, Eos % (Auto) 0.0, Baso % (Auto) 0.2, Absolute Neuts (auto) 9.0 H, Absolute Lymphs (auto) 1.49, Nucleated RBC % 0 03/05/19 08:46: Sodium 137, Potassium 4.7, Chloride 101, Carbon Dioxide 38.0 H, Anion Gap -2 L, BUN 18, Creatinine 0.51 L, Estim Creat Clear Calc 84.26, Est GFR (MDRD) Af Amer 159, Est GFR (MDRD) Non-Af 131, BUN/Creatinine Ratio 35.5 H, Glucose 218 H, Calcium 8.9, Magnesium 2.2, Total Bilirubin 0.20, AST 50 H, ALT 193 H, Alkaline Phosphatase 148 H, Total Protein 6.8, Albumin 2.4 L, Globulin 4.4 H, Albumin/Globulin Ratio 0.5 L 03/05/19 08:46: Phosphorus 3.2 Clinical Impression(s) from Imaging Studies Chest X-Ray 03/01/19 21:00 IMPRESSION: No acute thoracic pathology. COPD. Total time of the visit including total time spent in counseling or coordination of care, (more than 50% of the total time, spent in obtaining medical information from nurses and other ancillary care providers), discussion with consultants and review of medical record is 30 minutes Code Visit Inpatient E&M: 40845 Subs Hosp L2
[2019-03-05] MEDS: Tamsulosin HCl 0.4 MG Capsule PO (22:43)
[2019-03-06] VITALS (18 sets, daily range): BP systolic 134–144; BP diastolic 60–68; PULSE 54–89; RESP 18–22; TEMP 36.3–36.9; O2SAT 84–97
[2019-03-06] MEDS: Acetaminophen 325 MG Tablet 650 MG PO ×2 (01:24→08:34)
[2019-03-06] MEDS: oxyCODONE 5 MG Tablet PO ×3 (01:24→20:59)
[2019-03-06] MEDS: Albuterol 2.5 MG/3 ML VIAL.NEB. INHALATION (01:29)
[2019-03-06] MEDS: Levothyroxine 25 MCG TABLET PO (05:08)
[2019-03-06] MEDS: Morphine 2 MG/ML Syringe IV ×2 (05:09→13:55)
[2019-03-06] MEDS: 0.9% Saline Lock 10 ML Syringe IV (05:09)
[2019-03-06] MEDS: Ipratropium/Albuterol Sulfate 3 ML AMPUL.NEB INHALATION ×5 (07:05→23:27)
[2019-03-06] MEDS: Paroxetine 20 MG Tablet 40 MG PO (08:25)
[2019-03-06] MEDS: Famotidine 20 MG Tablet PO ×2 (08:25→21:38)
[2019-03-06] MEDS: Digoxin 250 MCG Tablet PO (08:25)
[2019-03-06] MEDS: Spironolactone 25 MG Tablet PO (08:25)
[2019-03-06] MEDS: Oseltamivir Phosphate 75 MG Capsule PO ×2 (08:25→21:38)
[2019-03-06] MEDS: guaiFENesin 1,200 MG Tablet 1200 MG PO ×2 (08:25→21:38)
[2019-03-06] MEDS: Doxycycline 100 MG CAPSULE PO ×2 (08:25→21:37)
[2019-03-06] MEDS: Losartan Potassium 50 MG Tablet PO (08:26)
[2019-03-06] MEDS: Carvedilol 25 MG Tablet PO ×2 (08:26→21:37)
[2019-03-06] MEDS: Enoxaparin 80 MG/0.8 ML Syringe 70 MG SC ×2 (08:26→21:38)
[2019-03-06] MEDS: Aspirin 81 MG TAB.CHEW PO (08:26)
[2019-03-06] MEDS: Furosemide 20 MG Tablet PO (08:26)
--- NOTE | 2019-03-06 09:59 | PCM.PN.PUL ---
Patient Problems: Active and Suspected Problems (Last Reviewed 09/23/18 @ 15:41 by Renetta Almodovar) Elevated troponin (Acute) Hyperglycemia (Acute) Acute and chronic respiratory failure with hypoxia (Acute) Sepsis (Acute) NSTEMI (non-ST elevated myocardial infarction) (Acute) COPD exacerbation (Acute) Subjective: The patient was seen and examined at the bedside this morning. Events from the last 24 hours have been reviewed. The patient is currently afebrile, hemodynamically stable and maintaining appropriate oxygen saturations on 6 L/min via nasal cannula. There have been no significant changes overnight. The patient remained short of breath. Objective: The patient's most recent lab work, culture data and imaging studies have all been personally reviewed. Respiratory viral panel was positive for both influenza A and RSV. - Physical Exam Vitals/I&O's: Vital Signs Temp Pulse Resp BP Pulse Ox 98 F 89 18 140/64 H 97 03/06/19 08:18 03/06/19 08:18 03/06/19 08:18 03/06/19 08:18 03/06/19 08:18 Oxygen Flow Rate (L/min) 6 Oxygen Delivery Method Nasal Cannula Weight: 151 lb 0.266 oz Body Mass Index (BMI) 29.3 Intake and Output for Last 24 Hours 03/04/19 03/05/19 03/06/19 23:59 23:59 23:59 Intake Total 740 / 740 700 / 700 60 / 60 Balance 740 / 740 700 / 700 60 / 60 General: Alert, Cooperative, No apparent distress HEENT: Atraumatic, PERRLA, Normocephalic Oral: No Gingival or Mucosal Lesions/ Ulcerations Neck: Supple, No Nodes, Trachea Midline Lungs: No rhonchi, No wheeze, No rales, Diminished Cardiovascular: Regular rate, Regular Rhythm, Normal S1, Normal S2, No murmurs Abdomen: Bowel Sounds Present, Soft, Non Tender Extremities: No clubbing, No cyanosis, No edema Skin: No breakdown Musculoskeletal: No Tenderness to Palpation of Joints or Extremities Lymphatic: No Cervical, Supraclavicular, or Inguinal Adenopathy Neurological: Cranial nerves II-XII grossly intact, Neuro grossly intact Psych/Mental Status: Normal Affect, Appropriate Labs (Last 48 Hours) 03/04/19 03/05/19 03/05/19 04:55 08:46 08:46 WBC 11.1 H RBC 4.16 L Hgb 11.4 L Hct 39.5 MCV 95.0 MCH 27.4 MCHC 28.9 L RDW Std Deviation 56.1 H RDW Coeff of Siobhan 15.9 H Plt Count 321 MPV 8.9 Immature Gran % (Auto) 0.400 Neut % (Auto) 80.4 H Lymph % (Auto) 13.4 L [place] % (Auto) 5.6 Eos % (Auto) 0.0 Baso % (Auto) 0.2 Absolute Neuts (auto) 9.0 H Absolute Lymphs (auto) 1.49 Nucleated RBC % 0 Sodium 137 Potassium 4.7 Chloride 101 Carbon Dioxide 38.0 H Anion Gap -2 L BUN 18 Creatinine 0.51 L Estim Creat Clear Calc 84.26 Est GFR (MDRD) Af Amer 159 Est GFR (MDRD) Non-Af 131 BUN/Creatinine Ratio 35.5 H Glucose 218 H Calcium 8.9 Phosphorus Magnesium 2.1 2.2 Total Bilirubin 0.20 AST 50 H ALT 193 H Alkaline Phosphatase 148 H Total Protein 6.8 Albumin 2.4 L Globulin 4.4 H Albumin/Globulin Ratio 0.5 L 03/05/19 08:46 WBC RBC Hgb Hct MCV MCH MCHC RDW Std Deviation RDW Coeff of Siobhan Plt Count MPV Immature Gran % (Auto) Neut % (Auto) Lymph % (Auto) [place] % (Auto) Eos % (Auto) Baso % (Auto) Absolute Neuts (auto) Absolute Lymphs (auto) Nucleated RBC % Sodium Potassium Chloride Carbon Dioxide Anion Gap BUN Creatinine Estim Creat Clear Calc Est GFR (MDRD) Af Amer Est GFR (MDRD) Non-Af BUN/Creatinine Ratio Glucose Calcium Phosphorus 3.2 Magnesium Total Bilirubin AST ALT Alkaline Phosphatase Total Protein Albumin Globulin Albumin/Globulin Ratio Microbiology 03/01/19 20:50 Blood Culture (Wb) #2 - Anticubital Left Blood Culture - Preliminary No growth in 48 hours. 03/01/19 20:40 Blood Culture (Wb) - Right Hand Blood Culture - Preliminary No growth in 48 hours. 03/01/19 23:47 Sputum, Expectorated/Coughed Gram Stain - Final 03/01/19 23:47 Sputum, Expectorated/Coughed Respiratory Culture - Final Clinical Impression(s) from Imaging Studies Chest X-Ray 03/01/19 21:00 IMPRESSION: No acute thoracic pathology. COPD. Electronically Signed: Memo Hammond, at 21:27 EST Tel , Service support , Current Medications Acetaminophen (Tylenol) 650 mg PO Q4H PRN PRN PRN Reason: Pain Score 1-10/Temp > 100.7 F Last Admin: 03/06/19 08:34 Dose: 650 mg Documented by: Albuterol Sulfate (Ventolin Aerosols) 2.5 mg INHALATION Q2H PRN PRN PRN Reason: SOB/Wheezing Last Admin: 03/06/19 01:29 Dose: 2.5 mg Documented by: Albuterol/Ipratropium (Duoneb) 3 ml INHALATION Q4HWA.RT [facility] Last Admin: 03/06/19 07:05 Dose: 3 ml Documented by: Aspirin (Aspirin, Baby) 81 mg PO DAILY@0800 [facility] Last Admin: 03/06/19 08:26 Dose: 81 mg Documented by: Carvedilol (Coreg) 25 mg PO BID [facility] Last Admin: 03/06/19 08:26 Dose: 25 mg Documented by: Digoxin (Lanoxin) 250 mcg PO DAILY [facility] Last Admin: 03/06/19 08:25 Dose: 250 mcg Documented by: Doxycycline Monohydrate (Doxycycline) 100 mg PO BID [facility] Last Admin: 03/06/19 08:25 Dose: 100 mg Documented by: Enoxaparin Sodium (Lovenox) 70 mg SC BID [facility] Last Admin: 03/06/19 08:26 Dose: 70 mg Documented by: Famotidine (Pepcid) 20 mg PO BID [facility] Last Admin: 03/06/19 08:25 Dose: 20 mg Documented by: Furosemide (Lasix) 20 mg PO DAILY [facility] Last Admin: 03/06/19 08:26 Dose: 20 mg Documented by: Glucagon () 1 mg IM .X1 PRN PRN Reason: Hypoglycemia Guaifenesin (Mucinex) 1,200 mg PO BID [facility] Last Admin: 03/06/19 08:25 Dose: 1,200 mg Documented by: Hydralazine HCl (Apresoline Iv) 10 mg IV Q4H PRN PRN PRN Reason: SBP > 160 Sodium Chloride () 250 mls @ 15 mls/hr IV .[id number] PRN PRN Reason: Saline Flush Sodium Chloride () 250 mls @ 15 mls/hr IV .[id number] PRN PRN Reason: Additional IVPB Infusion Dextrose (Dextrose 10%-Water) 250 mls @ 999 mls/hr IV .Q16M PRN; Protocol PRN Reason: HYPOGLYCEMIA Levothyroxine Sodium (Synthroid) 25 mcg PO DAILY@0600 [facility] Last Admin: 03/06/19 05:08 Dose: 25 mcg Documented by: Losartan Potassium (Cozaar) 50 mg PO DAILY [facility] Last Admin: 03/06/19 08:26 Dose: 50 mg Documented by: Melatonin (Melatonin) 3 mg PO QHS PRN PRN PRN Reason: INSOMNIA Methylprednisolone (Solu-Medrol) 40 mg IV Q8 [facility] Last Admin: 03/06/19 05:08 Dose: 40 mg Documented by: Morphine Sulfate () 2 mg IV Q4H PRN PRN PRN Reason: Pain Score 6-10/10 Last Admin: 03/06/19 05:09 Dose: 2 mg Documented by: Nitroglycerin (Nitrostat) 0.4 mg SUBLINGUAL Q5M PRN PRN Reason: CARDIAC/CHEST PAIN Oseltamivir Phosphate (Tamiflu) 75 mg PO BID [facility] Stop: 03/06/19 22:01 Last Admin: 03/06/19 08:25 Dose: 75 mg Documented by: Oxycodone HCl (Oxyir) 5 mg PO Q4H PRN PRN PRN Reason: Pain Score 4-5/10 Last Admin: 03/06/19 08:34 Dose: 5 mg Documented by: Paroxetine HCl (Paxil) 40 mg PO DAILY [facility] Last Admin: 03/06/19 08:25 Dose: 40 mg Documented by: Psyllium Hydrophilic Mucilloid (Metamucil) 1 packet PO DAILY PRN PRN PRN Reason: Constipation Sodium Chloride () 10 - 40 ml IV UD PRN PRN Reason: SALINE FLUSH Last Admin: 03/06/19 05:09 Dose: 10 ml Documented by: Spironolactone (Aldactone) 25 mg PO DAILY [facility] Last Admin: 03/06/19 08:25 Dose: 25 mg Documented by: Tamsulosin HCl (Flomax) 0.4 mg PO QHS [facility] Last Admin: 03/05/19 22:43 Dose: 0.4 mg Documented by: Throat Lozenges (Cepacol Sore Throat Lozenge) 1 lozenge MUCOUS MEM Q2H PRN PRN PRN Reason: Sore Throat/Cough Medical Necessity - Tobacco Use Smoking Status: Former smoker Tobacco Use: Non-smoker Assessment/Plan All Active Problems (Last Reviewed 09/23/18 @ 15:41 by Renetta Almodovar) Elevated LFTs (Acute) Elevated troponin (Acute) Hyperglycemia (Acute) Acute and chronic respiratory failure with hypoxia (Acute) Sepsis (Acute) NSTEMI (non-ST elevated myocardial infarction) (Acute) COPD exacerbation (Acute) Cardiac tamponade (Acute) RECOMMENDATIONS: 1. Continue Tamiflu, bronchodilators and IV steroids. I do anticipate a prolonged recovery phase for this patient. 2. Wean supplemental oxygen to maintain saturations at or above 90%. 3. Encourage incentive spirometer use and mobilize patient as tolerated. 4. Perform walking oximetry study prior to consideration for discharge home. 5. Outpatient pulmonary follow-up within 2 weeks is strongly recommended. 6. Outpatient PFTs will be ordered at the time of her follow-up office visit in the pulmonary medicine clinic. IMPRESSIONS: 1. Acute on chronic hypoxemic respiratory failure secondary to COPD with exacerbation due to combined influenza A and RSV infection The patient initially presented to the hospital with shortness of breath and was subsequently found to have a COPD exacerbation precipitated by both influenza A and RSV. She remains on Tamiflu, scheduled bronchodilators and IV steroids. I do anticipate a prolonged recovery phase for this patient. She does have a baseline 3 L/min supplemental oxygen requirement at all times. I would strongly recommend that she follow-up with us in the pulmonary medicine clinic upon discharge, as she has been lost to follow-up since 2018. At that time, orders can be placed for pulmonary function studies. 2. Non-ST segment elevation NM Continue medical management per cardiology recommendations. 3. Continuous tobacco dependency Smoking cessation counseling was provided. 4. Hypertension/hyperlipidemia/hypothyroidism Complicates care, management, recovery and prognosis. Continue home medications as indicated. This note was generated with [employer] software. It may contain incorrect words, spelling, and punctuation that were not noted in checking the note before signing. Code Visit Inpatient E&M: 74488 Subs Hosp L2
--- NOTE | 2019-03-06 14:50 | PCM.PN.HOSP ---
Patient Problems: Active and Suspected Problems (Last Reviewed 09/23/18 @ 15:41 by Renetta Almodovar) Elevated troponin (Acute) Hyperglycemia (Acute) Acute and chronic respiratory failure with hypoxia (Acute) Sepsis (Acute) NSTEMI (non-ST elevated myocardial infarction) (Acute) COPD exacerbation (Acute) Reason for Visit: Acute on chronic hypoxic respiratory secondary to combined RSV and influenza A viral bronchitis. Objective: Patient is still short of breath and has slow recovery. On 50% Ventimask/sometimes 6 L of oxygen. She feels about 50% better. Vitals/I&O's: Vital Signs Temp Pulse Resp BP Pulse Ox 97.5 F L 62 20 H 144/60 H 95 03/06/19 13:44 03/06/19 13:44 03/06/19 13:44 03/06/19 13:44 03/06/19 13:44 Oxygen Flow Rate (L/min) 15 Oxygen Delivery Method Venturi Mask Weight: 151 lb 0.266 oz Body Mass Index (BMI) 29.3 Intake and Output for Last 24 Hours 03/04/19 03/05/19 03/06/19 23:59 23:59 23:59 Intake Total 740 / 740 700 / 700 310 / 310 Balance 740 / 740 700 / 700 310 / 310 General: Alert, Oriented x3, Cooperative HEENT: Atraumatic, PERRLA, EOMI, Normocephalic Neck: Supple, No JVD, Negative Carotid Bruits Lungs: No rales, Diminished, Rhonchi - Bilateral rhonchi, Short of Breath - On exertion sometimes even at rest, Wheezes Cardiovascular: Regular rate, Regular Rhythm, Normal S1, Normal S2, No murmurs Abdomen: Bowel Sounds Present, Soft, Non Tender, Non-Distended Extremities: No edema, Capillary Refill Less than 3 Seconds Skin: No rashes, No breakdown Musculoskeletal: No Tenderness to Palpation of Joints or Extremities, Arthritic Changes Neurological: Cranial nerves II-XII grossly intact, Deep Tendon Reflexes 2+/4 and Symmetrical, Neuro grossly intact Psych/Mental Status: Normal Affect, Appropriate Microbiology Past 72 Hours 03/01/19 20:50 Blood Culture (Wb) #2 - Anticubital Left Blood Culture - Preliminary No growth in 48 hours. 03/01/19 20:40 Blood Culture (Wb) - Right Hand Blood Culture - Preliminary No growth in 48 hours. 03/01/19 23:47 Sputum, Expectorated/Coughed Gram Stain - Final 03/01/19 23:47 Sputum, Expectorated/Coughed Respiratory Culture - Final Current Medications Acetaminophen (Tylenol) 650 mg PO Q4H PRN PRN PRN Reason: Pain Score 1-10/Temp > 100.7 F Last Admin: 03/06/19 08:34 Dose: 650 mg Documented by: Albuterol Sulfate (Ventolin Aerosols) 2.5 mg INHALATION Q2H PRN PRN PRN Reason: SOB/Wheezing Last Admin: 03/06/19 01:29 Dose: 2.5 mg Documented by: Albuterol/Ipratropium (Duoneb) 3 ml INHALATION Q4HWA.RT REPLACED BY [facility] Last Admin: 03/06/19 11:12 Dose: 3 ml Documented by: Aspirin (Aspirin, Baby) 81 mg PO DAILY@0800 REPLACED BY [facility] Last Admin: 03/06/19 08:26 Dose: 81 mg Documented by: Carvedilol (Coreg) 25 mg PO BID REPLACED BY [facility] Last Admin: 03/06/19 08:26 Dose: 25 mg Documented by: Digoxin (Lanoxin) 250 mcg PO DAILY REPLACED BY [facility] Last Admin: 03/06/19 08:25 Dose: 250 mcg Documented by: Doxycycline Monohydrate (Doxycycline) 100 mg PO BID REPLACED BY [facility] Last Admin: 03/06/19 08:25 Dose: 100 mg Documented by: Enoxaparin Sodium (Lovenox) 70 mg SC BID REPLACED BY [facility] Last Admin: 03/06/19 08:26 Dose: 70 mg Documented by: Famotidine (Pepcid) 20 mg PO BID REPLACED BY [facility] Last Admin: 03/06/19 08:25 Dose: 20 mg Documented by: Furosemide (Lasix) 20 mg PO DAILY REPLACED BY [facility] Last Admin: 03/06/19 08:26 Dose: 20 mg Documented by: Glucagon () 1 mg IM .X1 PRN PRN Reason: Hypoglycemia Guaifenesin (Mucinex) 1,200 mg PO BID REPLACED BY [facility] Last Admin: 03/06/19 08:25 Dose: 1,200 mg Documented by: Hydralazine HCl (Apresoline Iv) 10 mg IV Q4H PRN PRN PRN Reason: SBP > 160 Sodium Chloride () 250 mls @ 15 mls/hr IV .[id number] PRN PRN Reason: Saline Flush Sodium Chloride () 250 mls @ 15 mls/hr IV .[id number] PRN PRN Reason: Additional IVPB Infusion Dextrose (Dextrose 10%-Water) 250 mls @ 999 mls/hr IV .Q16M PRN; Protocol PRN Reason: HYPOGLYCEMIA Levothyroxine Sodium (Synthroid) 25 mcg PO DAILY@0600 REPLACED BY [facility] Last Admin: 03/06/19 05:08 Dose: 25 mcg Documented by: Losartan Potassium (Cozaar) 50 mg PO DAILY REPLACED BY [facility] Last Admin: 03/06/19 08:26 Dose: 50 mg Documented by: Melatonin (Melatonin) 3 mg PO QHS PRN PRN PRN Reason: INSOMNIA Methylprednisolone (Solu-Medrol) 40 mg IV Q8 REPLACED BY [facility] Last Admin: 03/06/19 13:47 Dose: 40 mg Documented by: Morphine Sulfate () 2 mg IV Q4H PRN PRN PRN Reason: Pain Score 6-10/10 Last Admin: 03/06/19 13:55 Dose: 2 mg Documented by: Nitroglycerin (Nitrostat) 0.4 mg SUBLINGUAL Q5M PRN PRN Reason: CARDIAC/CHEST PAIN Oseltamivir Phosphate (Tamiflu) 75 mg PO BID REPLACED BY [facility] Stop: 03/06/19 22:01 Last Admin: 03/06/19 08:25 Dose: 75 mg Documented by: Oxycodone HCl (Oxyir) 5 mg PO Q4H PRN PRN PRN Reason: Pain Score 4-5/10 Last Admin: 03/06/19 08:34 Dose: 5 mg Documented by: Paroxetine HCl (Paxil) 40 mg PO DAILY REPLACED BY [facility] Last Admin: 03/06/19 08:25 Dose: 40 mg Documented by: Psyllium Hydrophilic Mucilloid (Metamucil) 1 packet PO DAILY PRN PRN PRN Reason: Constipation Sodium Chloride () 10 - 40 ml IV UD PRN PRN Reason: SALINE FLUSH Last Admin: 03/06/19 05:09 Dose: 10 ml Documented by: Spironolactone (Aldactone) 25 mg PO DAILY REPLACED BY [facility] Last Admin: 03/06/19 08:25 Dose: 25 mg Documented by: Tamsulosin HCl (Flomax) 0.4 mg PO QHS REPLACED BY [facility] Last Admin: 03/05/19 22:43 Dose: 0.4 mg Documented by: Throat Lozenges (Cepacol Sore Throat Lozenge) 1 lozenge MUCOUS MEM Q2H PRN PRN PRN Reason: Sore Throat/Cough STROKE Vital Signs/Narrative: Vital Signs Temp Pulse Resp BP Pulse Ox 03/06/19 13:44 97.5 F L 62 20 H 144/60 H 95 03/06/19 11:12 68 20 H 03/06/19 11:04 74 Medical Necessity - Tobacco Use Smoking Status: Former smoker Tobacco Use: Non-smoker Assessment/Plan All Active Problems (Last Reviewed 09/23/18 @ 15:41 by Renetta Almodovar) Elevated LFTs (Acute) Elevated troponin (Acute) Hyperglycemia (Acute) Acute and chronic respiratory failure with hypoxia (Acute) Sepsis (Acute) NSTEMI (non-ST elevated myocardial infarction) (Acute) COPD exacerbation (Acute) Cardiac tamponade (Acute) The patient is a 58 y/o F with H/o Chronic Systolic CHF s/p ACID/pacemaker placement, Dilated Cardiomyopathy,Chronic Hypoxic Respiratory Failure with COPD (2.5-3L NC), Former Tobacco use, recent 02/02/19 discharge from [facility] fordx Hepatitis A who presents to the [facility] ED on 03/01/19 with history of dyspnea, wheezing, moderately productive cough without fever or chills x 3 days with progressively worsening malaise, fatigue, poor oral intake prompting ED presentation. 1. Acute Sepsis (tachycardia, tachypnea, hypoxia and leukocytosis) secondary to COPD exacerbation with Acute on Chronic Hypoxic Respiratory Failure: Currently on 35 to 40% FiO2 on Ventimask. Required increased oxygen than baseline. Patient is being admitted in PCU. Continue oxygen support. continue ATC duonebs, PRN albuterol, IV methylprednisolone, HOB, IS parameters, doxycycline, obtain respiratory viral panel and sputum cultures. Respiratory panel, sputum culture and blood cultures x2 are pending. 03/03/2019: Respiratory panel is positive of RSV and influenza A, H1. Patient had interdisciplinary round. Need aggressive chest physiotherapy and incentive spirometry. Discussed with respiratory therapist. Continue antibiotic doxycycline and Tamiflu. 03/04/2019: Discussed with the plastics production machine operator. She has prolonged history of smoking and was smoking 3 to 4 cigarettes until admission. Continue bronchodilator, IV Solu-Medrol, chest physiotherapy incentive spirometry and antibiotics and Tamiflu. Expect slow recovery. Pulmonary consult appreciated. 03/05/2019: Continue same treatment. Slow progress and recovery is expected. 03/06: Seen by plastics production machine operator. Continue same treatment. Expect prolonged recovery time. Aggressive pulmonary toileting. 2. NSTEMI: EKG in ED with sinus tachycardia with left bundle branch block with no acute evidence of ischemia, first troponin 0 0.57, second troponin 1.3) 1.2. Discussed with Dr. Yeboah. 2D echo was done and shows picture of Takotsubo cardiomyopathy. She has history of nonischemic cardiomyopathy status post AICD. Previous echo in December 2014 after pericardial effusion status post drainage reported as, trivial to small pericardial effusion mainly around right ventricle. initial trop elevated, 0.575. youth nutritional monitor. Discussed with floor layer tile. Patient needs further stabilization of pulmonary COPD exacerbation and further invasive cardiac work-up if needed. Lipid profile LDL 74, HDL 13; suggestive of dyslipidemia. Magnesium normal. 03/03/2019: Patient does not have chest pain. Electrolytes within normal limit. Elevated troponin mostly secondary to COPD exacerbation/demand ischemia Arrhythmia: NSVT/multiple PVCs: Possible secondary to sepsis. AICD was interrogated. Automatic Drilling Machine Operator follow-up reviewed. AICD revealed supraventricular tachyarrhythmia as well as biventricular pacing. Coreg dose was increased; 25 mg twice daily. On digoxin 250 mcg p.o. daily. Digoxin level normal. 03/06: Patient has PVCs. But overall is better controlled on digoxin. 3. Hyperglycemia: Admission glucose 152, A1c 5.5. 4. Recent hepatitis A, acute infection: LFT shows AST 284, ALT 568, alkaline phosphatase 286. Monitor daily LFT. 03/03/2019: Transaminases are improving, ALT 336, AST 117, alkaline phosphatase 184. This most probably secondary to viral infection. CT abdomen done in January 2019 reported as livers mildly fatty infiltrated. Minimal intrahepatic dilatation. CBD 6 mm. GB wall thickening with trace PC fluid. Right upper quadrant sonogram reported as similar enlarged fatty liver with mild thickening of gallbladder wall with sludge. Currently patient does not have abdominal pain. 03/04/2019: LFT shows further improvement, ALT 247, AST 77. 03/05/2019: Very gradual improvement in LFT. AST 50 H, ALT 193 H, Alkaline Phosphatase 148 H 5. Chronic Systolic CHF, Dilated Cardiomyopathy: s/p AICD/pacemaker placement, Continue Asa, spironolactone, losartan, Lasix, digoxin, Coreg, statin. Discontinue IV fluid. AICD interrogated 6. Hypertension: Continue home regimen including Loly lactone, losartan, Lasix, Coreg, PRN hydralazine. 7. Hyperlipidemia: Continue home statin regimen. 8. Obesity: Weight loss and lifestyle changes encouraged. 9. Current nicotine/cigarette smoking: Encourage continued cessation. Patient affirmed that she will quit smoking. 10. Obesity: Weight loss and lifestyle changes encouraged. 11. Anxiety and Depression: Maintain on home paxil regimen. 12. DVT Prophylaxis: SCDs, therapeutic lovenox pending cardiac enzyme trending. 13. CODE status: Full code Active Medications Acetaminophen (Tylenol) 650 mg PO Q4H PRN PRN PRN Reason: Pain Score 1-10/Temp > 100.7 F Last Admin: 03/06/19 08:34 Dose: 650 mg Documented by: Albuterol Sulfate (Ventolin Aerosols) 2.5 mg INHALATION Q2H PRN PRN PRN Reason: SOB/Wheezing Last Admin: 03/06/19 01:29 Dose: 2.5 mg Documented by: Albuterol/Ipratropium (Duoneb) 3 ml INHALATION Q4HWA.RT REPLACED BY [facility] Last Admin: 03/06/19 11:12 Dose: 3 ml Documented by: Aspirin (Aspirin, Baby) 81 mg PO DAILY@0800 REPLACED BY [facility] Last Admin: 03/06/19 08:26 Dose: 81 mg Documented by: Carvedilol (Coreg) 25 mg PO BID REPLACED BY [facility] Last Admin: 03/06/19 08:26 Dose: 25 mg Documented by: Digoxin (Lanoxin) 250 mcg PO DAILY REPLACED BY [facility] Last Admin: 03/06/19 08:25 Dose: 250 mcg Documented by: Doxycycline Monohydrate (Doxycycline) 100 mg PO BID REPLACED BY [facility] Last Admin: 03/06/19 08:25 Dose: 100 mg Documented by: Enoxaparin Sodium (Lovenox) 70 mg SC BID REPLACED BY [facility] Last Admin: 03/06/19 08:26 Dose: 70 mg Documented by: Famotidine (Pepcid) 20 mg PO BID REPLACED BY [facility] Last Admin: 03/06/19 08:25 Dose: 20 mg Documented by: Furosemide (Lasix) 20 mg PO DAILY REPLACED BY [facility] Last Admin: 03/06/19 08:26 Dose: 20 mg Documented by: Glucagon () 1 mg IM .X1 PRN PRN Reason: Hypoglycemia Guaifenesin (Mucinex) 1,200 mg PO BID REPLACED BY [facility] Last Admin: 03/06/19 08:25 Dose: 1,200 mg Documented by: Hydralazine HCl (Apresoline Iv) 10 mg IV Q4H PRN PRN PRN Reason: SBP > 160 Sodium Chloride () 250 mls @ 15 mls/hr IV .[id number] PRN PRN Reason: Saline Flush Sodium Chloride () 250 mls @ 15 mls/hr IV .[id number] PRN PRN Reason: Additional IVPB Infusion Dextrose (Dextrose 10%-Water) 250 mls @ 999 mls/hr IV .Q16M PRN; Protocol PRN Reason: HYPOGLYCEMIA Levothyroxine Sodium (Synthroid) 25 mcg PO DAILY@0600 REPLACED BY [facility] Last Admin: 03/06/19 05:08 Dose: 25 mcg Documented by: Losartan Potassium (Cozaar) 50 mg PO DAILY REPLACED BY [facility] Last Admin: 03/06/19 08:26 Dose: 50 mg Documented by: Melatonin (Melatonin) 3 mg PO QHS PRN PRN PRN Reason: INSOMNIA Methylprednisolone (Solu-Medrol) 40 mg IV Q8 REPLACED BY [facility] Last Admin: 03/06/19 13:47 Dose: 40 mg Documented by: Morphine Sulfate () 2 mg IV Q4H PRN PRN PRN Reason: Pain Score 6-10/10 Last Admin: 03/06/19 13:55 Dose: 2 mg Documented by: Nitroglycerin (Nitrostat) 0.4 mg SUBLINGUAL Q5M PRN PRN Reason: CARDIAC/CHEST PAIN Oseltamivir Phosphate (Tamiflu) 75 mg PO BID REPLACED BY [facility] Stop: 03/06/19 22:01 Last Admin: 03/06/19 08:25 Dose: 75 mg Documented by: Oxycodone HCl (Oxyir) 5 mg PO Q4H PRN PRN PRN Reason: Pain Score 4-5/10 Last Admin: 03/06/19 08:34 Dose: 5 mg Documented by: Paroxetine HCl (Paxil) 40 mg PO DAILY REPLACED BY [facility] Last Admin: 03/06/19 08:25 Dose: 40 mg Documented by: Psyllium Hydrophilic Mucilloid (Metamucil) 1 packet PO DAILY PRN PRN PRN Reason: Constipation Sodium Chloride () 10 - 40 ml IV UD PRN PRN Reason: SALINE FLUSH Last Admin: 03/06/19 05:09 Dose: 10 ml Documented by: Spironolactone (Aldactone) 25 mg PO DAILY REPLACED BY [facility] Last Admin: 03/06/19 08:25 Dose: 25 mg Documented by: Tamsulosin HCl (Flomax) 0.4 mg PO QHS REPLACED BY [facility] Last Admin: 03/05/19 22:43 Dose: 0.4 mg Documented by: Throat Lozenges (Cepacol Sore Throat Lozenge) 1 lozenge MUCOUS MEM Q2H PRN PRN PRN Reason: Sore Throat/Cough Microbiology Past 72 Hours 03/01/19 20:50 Blood Culture (Wb) #2 - Anticubital Left Blood Culture - Preliminary No growth in 48 hours. 03/01/19 20:40 Blood Culture (Wb) - Right Hand Blood Culture - Preliminary No growth in 48 hours. 03/01/19 23:47 Sputum, Expectorated/Coughed Gram Stain - Final 03/01/19 23:47 Sputum, Expectorated/Coughed Respiratory Culture - Final Clinical Impression(s) from Imaging Studies Chest X-Ray 03/01/19 21:00 IMPRESSION: No acute thoracic pathology. COPD. Total time of the visit including total time spent in counseling or coordination of care, (more than 50% of the total time, spent in obtaining medical information from nurses and other ancillary care providers), discussion with consultants and review of medical record is 30 minutes Code Visit Inpatient E&M: [id number] [facility] L2
[2019-03-06] MEDS: Tamsulosin HCl 0.4 MG Capsule PO (21:38)
[2019-03-06] MEDS: Psyllium 1 PACKET PO (21:53)
[2019-03-07] VITALS (20 sets, daily range): BP systolic 102–164; BP diastolic 43–82; PULSE 63–109; RESP 12–24; TEMP 36.6–36.9; O2SAT 50–96
[2019-03-07] MEDS: oxyCODONE 5 MG Tablet PO ×3 (04:07→19:04)
[2019-03-07 05:40] LABS: BUN 19 mg/dL (7-18); BUN/Creat Ratio 40.7 RATIO (10-20); Calcium,Total 8.5 mg/dL (8.5-10.1); Carbon Dioxide > 45.0 mmol/L (21.0-32.0); Chloride 93 mmol/L (98-107); Creatinine, Serum 0.47 mg/dL (0.55-1.02); EST Glomerular Filtration Rate 144 mL/min (>60); Est Glom Filt Rate - Afr Amer 175 mL/min (>60); Estimated Creatinine Clearance 91.43 ml/min; Glucose 211 mg/dL (74-106); Potassium 4.5 mmol/L (3.5-5.1); Sodium Level 137 mmol/L (136-145)
[2019-03-07] MEDS: Levothyroxine 25 MCG TABLET PO (05:40)
[2019-03-07] MEDS: 0.9% Saline Lock 10 ML Syringe IV ×3 (05:41→21:26)
[2019-03-07] MEDS: Ipratropium/Albuterol Sulfate 3 ML AMPUL.NEB INHALATION ×4 (07:01→19:52)
--- NOTE | 2019-03-07 08:04 | RAD_ITS ---
STUDY: X-RAY CHEST REASON FOR EXAM: Female, 58 years old. SOB. RSV, FLU TECHNIQUE: Single AP portable view of the chest. COMPARISON: Comparison is made with prior study dated March 01, 2019. FINDINGS: EKG electrodes are seen. Hyperinflation. Stable mild increased markings at the lung bases suggestive of a scarring. Stable blunting of the costophrenic angles. Normal size heart. A left-sided dual-chamber pacemaker is seen. Normal mediastinum and lisa. Normal visualized pulmonary arteries. There is atherosclerotic calcification of the aortic arch with tortuosity. Normal visualized thoracic spine. Normal visualized ribs, clavicles, and shoulders. There is no demonstrated abnormality of the visualized soft tissue structures of the upper abdomen. RAD/Chest 1 View (Portable) IMPRESSION: Hyperinflation. Stable increased markings at the lung bases suggestive of scarring with blunting of both costophrenic angles. Electronically Signed: Khurram Recio, at 13:15 EST , Service support ,
--- NOTE | 2019-03-07 08:09 | PN_ITS ---
Patient Problems: Active and Suspected Problems (Last Reviewed 09/23/18 @ 15:41 by Renetta Almodovar) Acute and chronic respiratory failure with hypoxia (Acute) NSTEMI (non-ST elevated myocardial infarction) (Acute) COPD exacerbation (Acute) Subjective: Chief complaint: Follow-up after admission for acute on chronic hypoxic and hy percapnic respiratory failure, COPD exacerbation and non-ST elevation [place]. Patient seen and examined. This morning, nursing staff reported patient has been more tachypneic and short of breath. Patient mentioned that she is slightly worse than yesterday. Denied any chest pain. She was started on BiPAP. She has been on Ventimask until today. She is afebrile, blood pressure and heart rate are maintained, she is tachypneic and dyspneic, pulse ox is maintained on BiPAP. - Physical Exam Vitals/I&O's: Vital Signs Temp Pulse Resp BP Pulse Ox 98.5 F 93 22 H 133/56 H 50 03/07/19 04:10 03/07/19 07:58 03/07/19 07:58 03/07/19 04:10 03/07/19 07:58 Oxygen Flow Rate (L/min) 93 Oxygen Delivery Method Venturi Mask Weight: 152 lb 8.958 oz Body Mass Index (BMI) 29.3 Intake and Output for Last 24 Hours 03/05/19 03/06/19 03/07/19 23:59 23:59 23:59 Intake Total 700 / 700 430 / 830 760 / 760 Balance 700 / 700 430 / 830 760 / 760 General: Alert, Oriented x3, Cooperative, - - Moderately short of breath. HEENT: Atraumatic, PERRLA, EOMI, Normocephalic Oral: Moist Mucosa, No Gingival or Mucosal Lesions/ Ulcerations Neck: Supple, No JVD, Negative Carotid Bruits, Trachea Midline, Thyroid Normal Size and Texture Lungs: No rhonchi, No wheeze, No rales, Diminished, Short of Breath, Tachypneic, - - Markedly decreased sounds bilateral, otherwise clear. Cardiovascular: Regular rate, Regular Rhythm, Normal S1, Normal S2, PMI Normal Abdomen: Bowel Sounds Present, Soft, Non Tender, Non-Distended, No Hepato- splenomegaly Extremities: No clubbing, No cyanosis, No edema Skin: No rashes, No breakdown Lymphatic: No Cervical, Supraclavicular, or Inguinal Adenopathy Neurological: Cranial nerves II-XII grossly intact, Motor Exam 5/5 strength throughout Psych/Mental Status: Normal Affect, Appropriate Microbiology Past 72 Hours 03/01/19 20:50 Blood Culture (Wb) #2 - Anticubital Left Blood Culture - Final No growth in 5 days. 03/01/19 20:40 Blood Culture (Wb) - Right Hand Blood Culture - Final No growth in 5 days. 03/01/19 23:47 Sputum, Expectorated/Coughed Gram Stain - Final 03/01/19 23:47 Sputum, Expectorated/Coughed Respiratory Culture - Final Laboratory Results 03/07/19 05:05: Sodium 137, Potassium 4.5, Chloride 93 L, Carbon Dioxide > 45.0 H*, Anion Gap TNP, BUN 19 H, Creatinine 0.47 L, Estim Creat Clear Calc 91.43, Est GFR (MDRD) Af Amer 175, Est GFR (MDRD) Non-Af 144, BUN/Creatinine Ratio 40.7 H, Glucose 211 H, Calcium 8.5 Current Medications Acetaminophen (Tylenol) 650 mg PO Q4H PRN PRN PRN Reason: Pain Score 1-10/Temp > 100.7 F Last Admin: 03/06/19 08:34 Dose: 650 mg Documented by: Albuterol Sulfate (Ventolin Aerosols) 2.5 mg INHALATION Q2H PRN PRN PRN Reason: SOB/Wheezing Last Admin: 03/06/19 01:29 Dose: 2.5 mg Documented by: Albuterol/Ipratropium (Duoneb) 3 ml INHALATION Q4HWA.RT [facility] Last Admin: 03/07/19 07:01 Dose: 3 ml Documented by: Aspirin (Aspirin, Baby) 81 mg PO DAILY@0800 [facility] Last Admin: 03/06/19 08:26 Dose: 81 mg Documented by: Carvedilol (Coreg) 25 mg PO BID [facility] Last Admin: 03/06/19 21:37 Dose: 25 mg Documented by: Digoxin (Lanoxin) 250 mcg PO DAILY [facility] Last Admin: 03/06/19 08:25 Dose: 250 mcg Documented by: Doxycycline Monohydrate (Doxycycline) 100 mg PO BID [facility] Last Admin: 03/06/19 21:37 Dose: 100 mg Documented by: Enoxaparin Sodium (Lovenox) 70 mg SC BID [facility] Last Admin: 03/06/19 21:38 Dose: 70 mg Documented by: Famotidine (Pepcid) 20 mg PO BID [facility] Last Admin: 03/06/19 21:38 Dose: 20 mg Documented by: Furosemide (Lasix) 20 mg PO DAILY [facility] Last Admin: 03/06/19 08:26 Dose: 20 mg Documented by: Furosemide (Lasix) 40 mg IV X1 ONE Stop: 03/07/19 08:09 Glucagon () 1 mg IM .X1 PRN PRN Reason: Hypoglycemia Guaifenesin (Mucinex) 1,200 mg PO BID [facility] Last Admin: 03/06/19 21:38 Dose: 1,200 mg Documented by: Hydralazine HCl (Apresoline Iv) 10 mg IV Q4H PRN PRN PRN Reason: SBP > 160 Levothyroxine Sodium (Synthroid) 25 mcg PO DAILY@0600 [facility] Last Admin: 03/07/19 05:40 Dose: 25 mcg Documented by: Losartan Potassium (Cozaar) 50 mg PO DAILY [facility] Last Admin: 03/06/19 08:26 Dose: 50 mg Documented by: Melatonin (Melatonin) 3 mg PO QHS PRN PRN PRN Reason: INSOMNIA Methylprednisolone (Solu-Medrol) 40 mg IV Q8 [facility] Last Admin: 03/07/19 05:40 Dose: 40 mg Documented by: Morphine Sulfate () 2 mg IV Q4H PRN PRN PRN Reason: Pain Score 6-10/10 Last Admin: 03/06/19 13:55 Dose: 2 mg Documented by: Nitroglycerin (Nitrostat) 0.4 mg SUBLINGUAL Q5M PRN PRN Reason: CARDIAC/CHEST PAIN Oxycodone HCl (Oxyir) 5 mg PO Q4H PRN PRN PRN Reason: Pain Score 4-5/10 Last Admin: 03/07/19 04:07 Dose: 5 mg Documented by: Paroxetine HCl (Paxil) 40 mg PO DAILY [facility] Last Admin: 03/06/19 08:25 Dose: 40 mg Documented by: Psyllium Hydrophilic Mucilloid (Metamucil) 1 packet PO DAILY PRN PRN PRN Reason: Constipation Last Admin: 03/06/19 21:53 Dose: 1 packet Documented by: Sodium Chloride () 10 - 40 ml IV UD PRN PRN Reason: SALINE FLUSH Last Admin: 03/07/19 05:41 Dose: 10 ml Documented by: Spironolactone (Aldactone) 25 mg PO DAILY [facility] Last Admin: 03/06/19 08:25 Dose: 25 mg Documented by: Tamsulosin HCl (Flomax) 0.4 mg PO QHS [facility] Last Admin: 03/06/19 21:38 Dose: 0.4 mg Documented by: Throat Lozenges (Cepacol Sore Throat Lozenge) 1 lozenge MUCOUS MEM Q2H PRN PRN PRN Reason: Sore Throat/Cough Medical Necessity - Tobacco Use Smoking Status: Former smoker Tobacco Use: Non-smoker Assessment/Plan All Active Problems (Last Reviewed 09/23/18 @ 15:41 by Renetta Almodovar) Elevated LFTs (Acute) Acute and chronic respiratory failure with hypoxia (Acute) NSTEMI (non-ST elevated myocardial infarction) (Acute) COPD exacerbation (Acute) This is a 58 years old female patient presented to the emergency room because of worsening shortness of breath with cough, admitted for acute on chronic hypoxic and hypercapnic respiratory failure secondary to acute COPD exacerbation and also found to have acute constipation a month. #1 acute on chronic hypoxic and hypercapnic respiratory failure: Attributed to COPD exacerbation. This morning, patient was more short of breath. ABG performed and revealed pH of 7.41, PCO2 of 80 and PO2 of 67. She was started on BiPAP. She is on IV steroids, antibiotics and bronchodilators. She tested positive for influenza A and RSV A. I will give her 1 dose of IV Lasix x1. Plan to continue BiPAP, continue steroids and antibiotics. #2 acute COPD exacerbation: Triggered by influenza A and RSV type A. She is on IV steroids, doxycycline and bronchodilators. This morning, her breathing got worse and she was started on BiPAP. Plan as above. #3 non-ST relation VA: She is on aspirin, diabetic Lovenox twice daily, Coreg. 2D echocardiogram revealed ejection fraction 55%, findings consistent with Takot subo cardiomyopathy. She is on Lasix, losartan, Coreg and Aldactone. Plan to increase Lasix to 40 mg p.o. daily, cardiology on the case. #4 recent history of hepatitis A: Liver transaminases and alkaline phosphatase been trending down. Bilirubin is normal. Patient denied any abdominal pain. #5 chronic systolic CHF/status post ICD and pacemaker placement: 2D echocardiogram reviewed as above. She is on Lasix, losartan, Aldactone and Coreg. Plan to increase Lasix as above, continue same other treatment. #6 hypertension: Blood pressure stable, continue Coreg, Lasix, losartan and Aldactone as well as IV adenosine PRN. #7 hypothyroidism: Continue levothyroxine. #8 DVT prophylaxis: She is on therapeutic Twice daily. This note was generated with Spindle dictation software. It may contain incorrect words, spelling, and punctuation that were not noted in checking the note before signing. Code Visit Inpatient E&M: 65855 Subs Hosp L2
--- NOTE | 2019-03-07 08:16 | NURSING ---
0740-cps up to do stat blood gas. results sent to dr. rowe via core text and reviewed by this rn. order for bipap and to send to oncoming physician.
--- NOTE | 2019-03-07 08:17 | NURSING ---
0800 pt placed on bipap for increasing sob and co2 levels. dr cantu to room. pt receiving aerosol also at this time. pt status changed to stepdown as pt was not on bipap before and hemodialysis charge nurse aware. report given to tl rn for continued care of pt with no questions voiced
--- NOTE | 2019-03-07 09:06 | CPS ---
ABG result cortexted to Dr Mason at 0715. Charge nurse confirmed Dr mason did receive text.
[2019-03-07 09:30] LABS: Blood Gas Specimen Type ART; SITE Right Radial
[2019-03-07 09:31] LABS: FI02 50; O2 Delivery Device VENTI; Time Given 735; pH 7.41 (7.35-7.45)
--- NOTE | 2019-03-07 09:31 | PN_ITS ---
Patient Problems: Active and Suspected Problems (Last Reviewed 09/23/18 @ 15:41 by Renetta Almodovar) Elevated troponin (Acute) Hyperglycemia (Acute) Acute and chronic respiratory failure with hypoxia (Acute) Sepsis (Acute) NSTEMI (non-ST elevated myocardial infarction) (Acute) COPD exacerbation (Acute) Subjective: Patient did okay overnight. Patient was placed on BiPAP therapy secondary to respiratory distress. Patient states the BiPAP was helpful in sleeping overnight. Patient denies any chest pain, abdominal pain, nausea or vomiting. Objective: Chest x-ray was personally reviewed, shows no acute infiltrate and is not significantly changed from admission. Still shows signs of hyperinflation. - Physical Exam Vitals/I&O's: Vital Signs Temp Pulse Resp BP Pulse Ox 36.6 C 86 24 H 164/82 H 94 03/07/19 08:00 03/07/19 08:00 03/07/19 08:00 03/07/19 08:00 03/07/19 08:00 Oxygen Flow Rate (L/min) 93 Oxygen Delivery Method Bi-pap Weight: 69.2 kg Body Mass Index (BMI) 29.3 Intake and Output for Last 24 Hours 03/05/19 03/06/19 03/07/19 23:59 23:59 23:59 Intake Total 700 / 700 430 / 830 760 / 760 Balance 700 / 700 430 / 830 760 / 760 General: Alert, Oriented x3, Cooperative, No apparent distress - On BiPAP therapy, - - Appears older than stated age HEENT: Atraumatic, PERRLA, EOMI, Normocephalic, - - No scleral icterus or injection noted Oral: No Gingival or Mucosal Lesions/ Ulcerations, Dry Mucosa Neck: Supple, No JVD, No Nodes, Trachea Midline Lungs: No rhonchi, No wheeze, No rales, Diminished, - - Symmetric expansion. Increased AP diameter. Cardiovascular: Regular rate, Regular Rhythm, Normal S1, Normal S2, No murmurs, No rub noted, No Gallop Abdomen: Bowel Sounds Present, Soft, Non Tender, Non-Distended, Obese Extremities: No clubbing, No cyanosis, No edema, Capillary Refill Less than 3 Seconds Skin: No rashes, No breakdown Musculoskeletal: No Tenderness to Palpation of Joints or Extremities Lymphatic: No Cervical, Supraclavicular, or Inguinal Adenopathy Neurological: Cranial nerves II-XII grossly intact, Neuro grossly intact, Motor Exam 5/5 strength throughout Psych/Mental Status: Alert and oriented to time, place, person, mood and affect Microbiology Past 72 Hours 03/01/19 20:50 Blood Culture (Wb) #2 - Anticubital Left Blood Culture - Final No growth in 5 days. 03/01/19 20:40 Blood Culture (Wb) - Right Hand Blood Culture - Final No growth in 5 days. 03/01/19 23:47 Sputum, Expectorated/Coughed Gram Stain - Final 03/01/19 23:47 Sputum, Expectorated/Coughed Respiratory Culture - Final Laboratory Results 03/07/19 05:05: Sodium 137, Potassium 4.5, Chloride 93 L, Carbon Dioxide > 45.0 H*, Anion Gap TNP, BUN 19 H, Creatinine 0.47 L, Estim Creat Clear Calc 91.43, Est GFR (MDRD) Af Amer 175, Est GFR (MDRD) Non-Af 144, BUN/Creatinine Ratio 40.7 H, Glucose 211 H, Calcium 8.5 03/07/19 07:26: pH Pending, Bicarbonate Actual Pending, POC Total CO2 Pending, Base Excess Pending, O2 Saturation Pending, ABG pCO2 Pending, ABG pO2 Pending Current Medications Acetaminophen (Tylenol) 650 mg PO Q4H PRN PRN PRN Reason: Pain Score 1-10/Temp > 100.7 F Last Admin: 03/06/19 08:34 Dose: 650 mg Documented by: Albuterol Sulfate (Ventolin Aerosols) 2.5 mg INHALATION Q2H PRN PRN PRN Reason: SOB/Wheezing Last Admin: 03/06/19 01:29 Dose: 2.5 mg Documented by: Albuterol/Ipratropium (Duoneb) 3 ml INHALATION Q4HWA.RT [facility] Last Admin: 03/07/19 07:01 Dose: 3 ml Documented by: Aspirin (Aspirin, Baby) 81 mg PO DAILY@0800 [facility] Last Admin: 03/06/19 08:26 Dose: 81 mg Documented by: Carvedilol (Coreg) 25 mg PO BID [facility] Last Admin: 03/06/19 21:37 Dose: 25 mg Documented by: Digoxin (Lanoxin) 250 mcg PO DAILY [facility] Last Admin: 03/06/19 08:25 Dose: 250 mcg Documented by: Doxycycline Monohydrate (Doxycycline) 100 mg PO BID [facility] Last Admin: 03/06/19 21:37 Dose: 100 mg Documented by: Enoxaparin Sodium (Lovenox) 70 mg SC BID [facility] Last Admin: 03/06/19 21:38 Dose: 70 mg Documented by: Famotidine (Pepcid) 20 mg PO BID [facility] Last Admin: 03/06/19 21:38 Dose: 20 mg Documented by: Furosemide (Lasix) 20 mg PO DAILY [facility] Last Admin: 03/06/19 08:26 Dose: 20 mg Documented by: Glucagon () 1 mg IM .X1 PRN PRN Reason: Hypoglycemia Guaifenesin (Mucinex) 1,200 mg PO BID [facility] Last Admin: 03/06/19 21:38 Dose: 1,200 mg Documented by: Hydralazine HCl (Apresoline Iv) 10 mg IV Q4H PRN PRN PRN Reason: SBP > 160 Levothyroxine Sodium (Synthroid) 25 mcg PO DAILY@0600 [facility] Last Admin: 03/07/19 05:40 Dose: 25 mcg Documented by: Losartan Potassium (Cozaar) 50 mg PO DAILY [facility] Last Admin: 03/06/19 08:26 Dose: 50 mg Documented by: Melatonin (Melatonin) 3 mg PO QHS PRN PRN PRN Reason: INSOMNIA Methylprednisolone (Solu-Medrol) 40 mg IV Q8 [facility] Last Admin: 03/07/19 05:40 Dose: 40 mg Documented by: Morphine Sulfate () 2 mg IV Q4H PRN PRN PRN Reason: Pain Score 6-10/10 Last Admin: 03/06/19 13:55 Dose: 2 mg Documented by: Nitroglycerin (Nitrostat) 0.4 mg SUBLINGUAL Q5M PRN PRN Reason: CARDIAC/CHEST PAIN Oxycodone HCl (Oxyir) 5 mg PO Q4H PRN PRN PRN Reason: Pain Score 4-5/10 Last Admin: 03/07/19 04:07 Dose: 5 mg Documented by: Paroxetine HCl (Paxil) 40 mg PO DAILY [facility] Last Admin: 03/06/19 08:25 Dose: 40 mg Documented by: Psyllium Hydrophilic Mucilloid (Metamucil) 1 packet PO DAILY PRN PRN PRN Reason: Constipation Last Admin: 03/06/19 21:53 Dose: 1 packet Documented by: Sodium Chloride () 10 - 40 ml IV UD PRN PRN Reason: SALINE FLUSH Last Admin: 03/07/19 05:41 Dose: 10 ml Documented by: Spironolactone (Aldactone) 25 mg PO DAILY [facility] Last Admin: 03/06/19 08:25 Dose: 25 mg Documented by: Tamsulosin HCl (Flomax) 0.4 mg PO QHS [facility] Last Admin: 03/06/19 21:38 Dose: 0.4 mg Documented by: Throat Lozenges (Cepacol Sore Throat Lozenge) 1 lozenge MUCOUS MEM Q2H PRN PRN PRN Reason: Sore Throat/Cough Medical Necessity - Tobacco Use Smoking Status: Former smoker Tobacco Use: Non-smoker Assessment/Plan All Active Problems (Last Reviewed 09/23/18 @ 15:41 by Renetta Almodovar) Elevated LFTs (Acute) Elevated troponin (Acute) Hyperglycemia (Acute) Acute and chronic respiratory failure with hypoxia (Acute) Sepsis (Acute) NSTEMI (non-ST elevated myocardial infarction) (Acute) COPD exacerbation (Acute) Cardiac tamponade (Acute) RECOMMENDATIONS: 1. Continue bronchodilators and IV steroids. I do anticipate a prolonged recovery phase for this patient. 2. Wean supplemental oxygen to maintain saturations at or above 90%. 3. Encourage incentive spirometer use and mobilize patient as tolerated. 4. Perform walking oximetry study prior to consideration for discharge home. 5. Outpatient pulmonary follow-up within 2 weeks is strongly recommended. 6. Outpatient PFTs will be ordered at the time of her follow-up office visit in the pulmonary medicine clinic. IMPRESSIONS: 1. Acute on chronic hypoxemic respiratory failure secondary to COPD with exacerbation due to combined influenza A and RSV infection The patient initially presented to the hospital with shortness of breath and was subsequently found to have a COPD exacerbation precipitated by both influenza A and RSV. She remains on scheduled bronchodilators and IV steroids. No baseline pulmonary function tests are available for review, but does have significant air trapping noted on imaging. Anticipate protracted course. Patient is on 3 L at baseline. Likely okay to all discontinue antibiotics from my perspective. Patient will need to follow-up as an outpatient for quantification and clarification of lung function. Continuation of BiPAP therapy with sleep is likely appropriate. 2. Non-ST segment elevation [place] Continue medical management per cardiology recommendations. 3. Continuous tobacco dependency Smoking cessation counseling was provided. 4. Hypertension/hyperlipidemia/hypothyroidism Complicates care, management, recovery and prognosis. Continue home medications as indicated. Code Visit Inpatient E&M: 82934 Subs Hosp L3
[2019-03-07 09:32] LABS: Base Excess 26 mmol/L (-2 to +2); Bicarbonate 50.5 mmol/L (22-26); PO2 67 mmHG (75-100); SO2 92 % (95-99); Total Carbon Dioxide > 50 mmol/L; pCO2 80.2 mmHg (35-45)
[2019-03-07] MEDS: Carvedilol 25 MG Tablet PO ×2 (10:08→21:25)
[2019-03-07] MEDS: Paroxetine 20 MG Tablet 40 MG PO (10:08)
[2019-03-07] MEDS: Aspirin 81 MG TAB.CHEW PO (10:08)
[2019-03-07] MEDS: guaiFENesin 1,200 MG Tablet 1200 MG PO ×2 (10:08→21:25)
[2019-03-07] MEDS: Enoxaparin 80 MG/0.8 ML Syringe 70 MG SC ×2 (10:08→21:26)
[2019-03-07] MEDS: Doxycycline 100 MG CAPSULE PO ×2 (10:08→21:25)
[2019-03-07] MEDS: Spironolactone 25 MG Tablet PO (10:09)
[2019-03-07] MEDS: Losartan Potassium 50 MG Tablet PO (10:09)
[2019-03-07] MEDS: Famotidine 20 MG Tablet PO ×2 (10:09→21:25)
[2019-03-07] MEDS: Digoxin 250 MCG Tablet PO (10:09)
[2019-03-07] MEDS: Furosemide 40 MG/4 ML Vial IV (10:10)
--- NOTE | 2019-03-07 12:07 | PCM.PN.CARD ---
Subjectve: The patient continues with issues with her underlying pulmonary disease process. She has required BiPAP therapy. Objective: Vital Signs Temp Pulse Resp BP Pulse Ox 98.0 F 71 18 130/61 H 94 03/07/19 10:00 03/07/19 11:02 03/07/19 11:02 03/07/19 10:00 03/07/19 11:02 Oxygen Flow Rate (L/min) 93 Oxygen Delivery Method Bi-pap Weight: 152 lb 8.958 oz Body Mass Index (BMI) 29.3 Intake and Output for Last 24 Hours 03/05/19 03/06/19 03/07/19 23:59 23:59 23:59 Intake Total 700 / 700 430 / 830 760 / 760 Balance 700 / 700 430 / 830 760 / 760 General: Awake, Alert, Oriented x 3, Cooperative HEENT: Atraumatic, Normocephalic, PERRL, EOMI, Sclera Non Icteric Oral: Moist Mucosa Neck: Supple, Good ROM Lungs: Diminished Eron Bases Cardiovascular: Regular Rhythm, Normal S1, Normal S2 Abdomen: Bowel Sounds Present, Soft, Non Tender Extremities: No edema Psych/Mental Status: Appropriate 03/07/19 05:05: Sodium 137, Potassium 4.5, Chloride 93 L, Carbon Dioxide > 45.0 H*, Anion Gap TNP, BUN 19 H, Creatinine 0.47 L, Est GFR (MDRD) Af Amer 175, Est GFR (MDRD) Non-Af 144, BUN/Creatinine Ratio 40.7 H, Glucose 211 H, Calcium 8.5 03/07/19 07:26: pH 7.41, Bicarbonate Actual 50.5 H, POC Total CO2 > 50, Base Excess 26 H, O2 Saturation 92 L, ABG pCO2 80.2 H*, ABG pO2 67 L, Alexis Test NA Rhythm: Sinus rhythm Medical Necessity - Tobacco Use Smoking Status: Former smoker Tobacco Use: Non-smoker Assessment/Plan 1. Non-ST segment elevation CO At the present time she has findings compatible with a non-ST segment elevation CO. Based upon her previous history of a non-CAD related cardiomyopathy this may be a type II event secondary to supply demand mismatch. This may be brought on by her underlying acute pulmonary disease process. Based upon her echocardiographic images there is concerned that she has developed a Takotsubo syndrome/stress-induced cardiomyopathy. At the present time she will continue to be monitored. She will continue medical management as deemed appropriate. Over time, it may not be unreasonable to consider a follow-up transthoracic echocardiogram to reassess her left ventricular wall motion systolic function. Depending upon her clinical course in the interim she may or may not need reevaluation in the cardiac catheterization laboratory. However, prior to proceeding with such, if needed, the hope is that her underlying pulmonary disease process may improve. 2. Non-CAD related cardiomyopathy Again she has a history of a non-CAD related cardiomyopathy with diminished LV systolic function. This led her to biventricular pacing. At the moment she has echocardiographic findings appearing compatible with a Takotsubo syndrome/stress-induced cardiomyopathy. She does not appear to have evidence of acute on chronic systolic mediated CHF at the moment. She will continue medical management and evaluation as noted above. 3. Chronic systolic mediated CHF Again at the moment she does not appear to have acute on chronic systolic mediated CHF type symptoms. She will need to continue medical therapy with adjustment as deemed appropriate during her acute respiratory course, etc. 4. Mitral valve regurgitation She does have an element of mitral valve regurgitation. She will continue to be followed by history, exam, and echocardiogram as deemed appropriate. 5. Ventricular ectopy/tachycardia Her ICD was interrogated this a.m. Her findings demonstrate PVCs and what was reported as supraventricular tachyarrhythmias as well as biventricular pacing. At the moment she will continue medical management. This will include an attempt at increasing her beta-donal therapy. Depending upon her findings she may or may not need further medical management such as antiarrhythmic therapy. 6. Biventricular ICD She does have a biventricular ICD in place. This was reassessed today. Her device was reported as functioning appropriately. 7. Hyperlipidemia She will continue lipid-lowering therapy as deemed appropriate. 8. Hypertension She will continue to have her blood pressure monitor. Her medications can be adjusted as needed. 9. Acute respiratory event/COPD exacerbation She will continue evaluation care per internal medicine. She is also being evaluated by pulmonology/critical care medicine. She is currently receiving BiPAP therapy. 10. Elevated hepatic transaminase levels Her hepatic studies are being followed. Her statins have been placed on hold. She may need further nonmedication/noncardiac evaluation as deemed appropriate. This note was generated using a voice recognition system and there may be incorrect words, spelling or punctuation that were not noted when reviewing the office note prior to saving.
[2019-03-07] MEDS: Tamsulosin HCl 0.4 MG Capsule PO (21:25)
[2019-03-08] VITALS (20 sets, daily range): BP systolic 106–153; BP diastolic 48–95; PULSE 60–93; RESP 12–20; TEMP 35.9–36.8; O2SAT 86–98
[2019-03-08] MEDS: Senna/Docusate Sodium 1 Tablet 2 TABLET PO ×3 (00:09→22:19)
[2019-03-08] MEDS: oxyCODONE 5 MG Tablet PO ×3 (00:10→17:04)
[2019-03-08] MEDS: Levothyroxine 25 MCG TABLET PO (05:48)
[2019-03-08] MEDS: 0.9% Saline Lock 10 ML Syringe IV ×2 (05:49→22:23)
[2019-03-08 06:06] LABS: Absolute Lymphocyte Count 1.61 X10^3/uL (0.83-4.51); Absolute Neutrophil Count 8.2 X10^3/uL (2.0-7.7); Basophil# 0.03 X10^3/uL; Basophil% 0.3 % (0-1); Eosinophil# 0.02 X10^3/uL; Eosinophils% 0.2 % (0-5); Hematocrit 41.5 % (37-47); Hemoglobin 12.4 g/dL (12.0-15.0); Lymphocyte # 1.61 X10^3/ul (4.0); Lymphocyte % 15.2 % (19-41); Mean Corp Hgb Conc 29.9 g/dL (32-36); Mean Corpuscular Hgb 27.7 pg (27.0-32.0); Mean Corpuscular Volume 92.8 fL (81-99); Mean Platelet Vol. 8.9 fl (6.2-12.0); Monocyte# 0.62 X10^3/uL; Monocyte% 5.8 % (0-10); NRBC Flagged by Analyzer 0 % (0-5); Neutrophil # 8.21 X10^3/uL (2.7-7.7); Neutrophil % 77.4 % (47-70); POSITIVE MORPHOLOGY YES; Platelet Count 306 K/mm3 (150-450); RBC Distribution Width CV 15.1 % (11.6-14.6); RBC Distribution Width SD 51.9 fl (35.1-43.9); Red Blood Count 4.47 M/mm3 (4.2-5.4); White Blood Count 10.6 K/mm3 (4.4-11.0)
[2019-03-08 06:07] LABS: Differential Indicated SCAN CRITERIA MET
[2019-03-08 06:45] LABS: BUN 21 mg/dL (7-18); BUN/Creat Ratio 38.6 RATIO (10-20); Calcium,Total 9.1 mg/dL (8.5-10.1); Carbon Dioxide > 45.0 mmol/L (21.0-32.0); Chloride 93 mmol/L (98-107); Creatinine, Serum 0.54 mg/dL (0.55-1.02); Differential Comment SCANNED; EST Glomerular Filtration Rate 121 mL/min (>60); Est Glom Filt Rate - Afr Amer 147 mL/min (>60); Estimated Creatinine Clearance 79.58 ml/min; Glucose 233 mg/dL (74-106); Potassium 4.7 mmol/L (3.5-5.1); Sodium Level 140 mmol/L (136-145)
[2019-03-08] MEDS: Ipratropium/Albuterol Sulfate 3 ML AMPUL.NEB INHALATION ×4 (07:53→21:51)
--- NOTE | 2019-03-08 08:14 | PN_ITS ---
Patient Problems: Active and Suspected Problems (Last Updated 03/07/19 @ 11:32 by Antoine Arzola MD) Acute and chronic respiratory failure with hypoxia (Acute) NSTEMI (non-ST elevated myocardial infarction) (Acute) COPD exacerbation (Acute) Subjective: Chief complaint: Follow-up after admission for acute on chronic hypoxic and hypercapnic respiratory failure, COPD exacerbation and non-ST elevation NC. Patient seen and examined. No acute events overnight. She tolerated BiPAP overnight. Today, she stated her breathing is better than yesterday. Reported mild cough, no sputum production. Denied any chest pain. She is on BiPAP, pulse ox is maintained, other vital signs are stable. - Physical Exam Vitals/I&O's: Vital Signs Temp Pulse Resp BP Pulse Ox 97.6 F L 70 15 137/56 H 98 03/08/19 04:00 03/08/19 07:02 03/08/19 06:00 03/08/19 06:00 03/08/19 06:00 Oxygen Flow Rate (L/min) 8 Oxygen Delivery Method Bi-pap Weight: 150 lb 9.211 oz Body Mass Index (BMI) 29.3 Intake and Output for Last 24 Hours 03/06/19 03/07/19 03/08/19 23:59 23:59 23:59 Intake Total 430 / 830 1480 / 1480 Balance 430 / 830 1480 / 1480 General: Alert, Oriented x3, Cooperative, - - Minimally short of breath. HEENT: Atraumatic, PERRLA, EOMI, Normocephalic Oral: Moist Mucosa, No Gingival or Mucosal Lesions/ Ulcerations Neck: Supple, No JVD, Negative Carotid Bruits, Trachea Midline, Thyroid Normal Size and Texture Lungs: No rhonchi, Diminished, Rales, Wheezes, - - Decreased breath sounds bilateral, occasional expiratory wheezes, faint crackles at the bases. Cardiovascular: Regular rate, Regular Rhythm, Normal S1, Normal S2, PMI Normal Abdomen: Bowel Sounds Present, Soft, Non Tender, Non-Distended, No Hepato- splenomegaly Extremities: No clubbing, No cyanosis, No edema Skin: No rashes, No breakdown Lymphatic: No Cervical, Supraclavicular, or Inguinal Adenopathy Neurological: Cranial nerves II-XII grossly intact, Neuro grossly intact Psych/Mental Status: Normal Affect, Appropriate Microbiology Past 72 Hours 03/01/19 20:50 Blood Culture (Wb) #2 - Anticubital Left Blood Culture - Final No growth in 5 days. 03/01/19 20:40 Blood Culture (Wb) - Right Hand Blood Culture - Final No growth in 5 days. Laboratory Results 03/07/19 07:26: Specimen Type ART, Sample Site Right Radial, pH 7.41, Bicarbonate Actual 50.5 H, POC Total CO2 > 50, Base Excess 26 H, O2 Saturation 92 L, O2 % 50, ABG pCO2 80.2 H*, ABG pO2 67 L, Alexis Test NA, O2 Delivery Device VENTI, Liter Flow 12.0, Blood Gas Notified Whom [facility] , Blood Gas Notified Time 735 03/08/19 05:10: WBC 10.6, RBC 4.47, Hgb 12.4, Hct 41.5, MCV 92.8, MCH 27.7, MCHC 29.9 L, RDW Std Deviation 51.9 H, RDW Coeff of Siobhan 15.1 H, Plt Count 306, MPV 8.9, Immature Gran % (Auto) 1.100 H, Neut % (Auto) 77.4 H, Lymph % (Auto) 15.2 L , [place] % (Auto) 5.8, Eos % (Auto) 0.2, Baso % (Auto) 0.3, Absolute Neuts (auto) 8.2 H, Absolute Lymphs (auto) 1.61, Nucleated RBC % 0, Differential Comment SCANNED 03/08/19 05:10: Sodium 140, Potassium 4.7, Chloride 93 L, Carbon Dioxide > 45.0 H*, Anion Gap TNP, BUN 21 H, Creatinine 0.54 L, Estim Creat Clear Calc 79.58, Est GFR (MDRD) Af Amer 147, Est GFR (MDRD) Non-Af 121, BUN/Creatinine Ratio 38.6 H, Glucose 233 H, Calcium 9.1 Current Medications Acetaminophen (Tylenol) 650 mg PO Q4H PRN PRN PRN Reason: Pain Score 1-10/Temp > 100.7 F Last Admin: 03/06/19 08:34 Dose: 650 mg Documented by: Albuterol Sulfate (Ventolin Aerosols) 2.5 mg INHALATION Q2H PRN PRN PRN Reason: SOB/Wheezing Last Admin: 03/06/19 01:29 Dose: 2.5 mg Documented by: Albuterol/Ipratropium (Duoneb) 3 ml INHALATION Q4HWA.RT [facility] Last Admin: 03/08/19 07:53 Dose: 3 ml Documented by: Aspirin (Aspirin, Baby) 81 mg PO DAILY@0800 [facility] Last Admin: 03/07/19 10:08 Dose: 81 mg Documented by: Carvedilol (Coreg) 25 mg PO BID [facility] Last Admin: 03/07/19 21:25 Dose: 25 mg Documented by: Digoxin (Lanoxin) 250 mcg PO DAILY [facility] Last Admin: 03/07/19 10:09 Dose: 250 mcg Documented by: Doxycycline Monohydrate (Doxycycline) 100 mg PO BID [facility] Last Admin: 03/07/19 21:25 Dose: 100 mg Documented by: Enoxaparin Sodium (Lovenox) 70 mg SC BID [facility] Last Admin: 03/07/19 21:26 Dose: 70 mg Documented by: Famotidine (Pepcid) 20 mg PO BID [facility] Last Admin: 03/07/19 21:25 Dose: 20 mg Documented by: Furosemide (Lasix) 40 mg PO DAILY [facility] Glucagon () 1 mg IM .X1 PRN PRN Reason: Hypoglycemia Guaifenesin (Mucinex) 1,200 mg PO BID [facility] Last Admin: 03/07/19 21:25 Dose: 1,200 mg Documented by: Hydralazine HCl (Apresoline Iv) 10 mg IV Q4H PRN PRN PRN Reason: SBP > 160 Levothyroxine Sodium (Synthroid) 25 mcg PO DAILY@0600 [facility] Last Admin: 03/08/19 05:48 Dose: 25 mcg Documented by: Losartan Potassium (Cozaar) 50 mg PO DAILY [facility] Last Admin: 03/07/19 10:09 Dose: 50 mg Documented by: Melatonin (Melatonin) 3 mg PO QHS PRN PRN PRN Reason: INSOMNIA Methylprednisolone (Solu-Medrol) 40 mg IV Q8 [facility] Last Admin: 03/08/19 05:49 Dose: 40 mg Documented by: Morphine Sulfate () 2 mg IV Q4H PRN PRN PRN Reason: Pain Score 6-10/10 Last Admin: 03/06/19 13:55 Dose: 2 mg Documented by: Nitroglycerin (Nitrostat) 0.4 mg SUBLINGUAL Q5M PRN PRN Reason: CARDIAC/CHEST PAIN Oxycodone HCl (Oxyir) 5 mg PO Q4H PRN PRN PRN Reason: Pain Score 4-5/10 Last Admin: 03/08/19 05:48 Dose: 5 mg Documented by: Paroxetine HCl (Paxil) 40 mg PO DAILY [facility] Last Admin: 03/07/19 10:08 Dose: 40 mg Documented by: Psyllium Hydrophilic Mucilloid (Metamucil) 1 packet PO DAILY PRN PRN PRN Reason: Constipation Last Admin: 03/06/19 21:53 Dose: 1 packet Documented by: Senna/Docusate Sodium (Senokot-S, Inessa-Colace) 2 tablet PO BID [facility] Last Admin: 03/08/19 00:09 Dose: 2 tablet Documented by: Sodium Chloride () 10 - 40 ml IV UD PRN PRN Reason: SALINE FLUSH Last Admin: 03/08/19 05:49 Dose: 10 ml Documented by: Spironolactone (Aldactone) 25 mg PO DAILY [facility] Last Admin: 03/07/19 10:09 Dose: 25 mg Documented by: Tamsulosin HCl (Flomax) 0.4 mg PO QHS [facility] Last Admin: 03/07/19 21:25 Dose: 0.4 mg Documented by: Throat Lozenges (Cepacol Sore Throat Lozenge) 1 lozenge MUCOUS MEM Q2H PRN PRN PRN Reason: Sore Throat/Cough Medical Necessity - Tobacco Use Smoking Status: Former smoker Tobacco Use: Non-smoker Assessment/Plan All Active Problems (Last Updated 03/07/19 @ 11:32 by Antoine Arzola MD) Elevated LFTs (Acute) Acute and chronic respiratory failure with hypoxia (Acute) NSTEMI (non-ST elevated myocardial infarction) (Acute) COPD exacerbation (Acute) This is a 58 years old female patient presented to the emergency room because of worsening shortness of breath with cough, admitted for acute on chronic hypoxic and hypercapnic respiratory failure secondary to acute COPD exacerbation and also found to have acute constipation a month. #1 acute on chronic hypoxic and hypercapnic respiratory failure: Secondary to COPD exacerbation. She is on BiPAP, IV steroids, doxycycline and bronchodilators. Today, she reported improvement of her symptoms, was able to sleep last night. Other vital signs are stable. She tested positive for influenza A and RSV A. Plan to continue same treatment, continue BiPAP at night, oxygen by nasal cannula at daytime. #2 acute COPD exacerbation: Triggered by influenza A and RSV type A. Remained on IV steroids, doxycycline and bronchodilators. She has been tolerating BiPAP. Will start tapering IV steroids. #3 non-ST relation NC: She is on aspirin, diabetic Lovenox twice daily, Coreg. 2D echocardiogram revealed ejection fraction 55%, findings consistent with Takotsubo cardiomyopathy. She is on Lasix, losartan, Coreg and Aldactone. Cardiology on the case. #4 recent history of hepatitis A: Liver transaminases and alkaline phosphatase been trending down. Bilirubin is normal. Patient denied any abdominal pain. #5 chronic systolic CHF/status post ICD and pacemaker placement: 2D echocardiogram reviewed as above. She is on Lasix, losartan, Aldactone and Coreg. #6 hypertension: Blood pressure stable, continue Coreg, Lasix, losartan and Aldactone as well as IV hydralazine PRN. #7 hypothyroidism: Continue levothyroxine. #8 DVT prophylaxis: She is on therapeutic Twice daily. This note was generated with [employer] dictation software. It may contain incorrect words, spelling, and punctuation that were not noted in checking the note before signing. Code Visit Inpatient E&M: 77002 Subs Hosp L2
[2019-03-08] MEDS: Doxycycline 100 MG CAPSULE PO ×2 (08:54→22:19)
[2019-03-08] MEDS: Digoxin 250 MCG Tablet PO (08:54)
[2019-03-08] MEDS: Paroxetine 20 MG Tablet 40 MG PO (08:54)
[2019-03-08] MEDS: Losartan Potassium 50 MG Tablet PO (08:54)
[2019-03-08] MEDS: Spironolactone 25 MG Tablet PO (08:54)
[2019-03-08] MEDS: Carvedilol 25 MG Tablet PO ×2 (08:54→22:19)
[2019-03-08] MEDS: Furosemide 40 MG Tablet PO (08:55)
[2019-03-08] MEDS: Aspirin 81 MG TAB.CHEW PO (08:55)
[2019-03-08] MEDS: Famotidine 20 MG Tablet PO ×2 (08:55→22:19)
[2019-03-08] MEDS: guaiFENesin 1,200 MG Tablet 1200 MG PO ×2 (08:55→22:19)
[2019-03-08] MEDS: Enoxaparin 80 MG/0.8 ML Syringe 70 MG SC ×2 (08:55→22:30)
--- NOTE | 2019-03-08 09:35 | CPS ---
Pt on high flow nasal cannula at 8 lpm and bull. well. Pt instructed to let nurse know if she becomes S.O.B. and feels she needs Bipap placed back on. Pt's nurse also made aware of pt staying on nasal cannula and that pt was instructed to call if she feels she needs Bipap back on.
--- NOTE | 2019-03-08 10:11 | CASEMGMT ---
ASTRID OWEN NOTE: To room to talk with pt. Pt resting in bed. Awake/alert/oriented. Introduced self and role of ASTRID OWEN. Discussed discharge planning with pt. Pt lives @ home alone. She states she would prefer to return home @ discharge, but depending on her strength/ability, she may consider SNF. Pt instructed to let staff know if she is interested in SNF. Will follow PT/OT and follow-up with patient for any needs. O2 is @ 8 L/M @ this time. Fortunato GAMBINON RN CM
--- NOTE | 2019-03-08 10:26 | PCM.PN.PUL ---
Patient Problems: Active and Suspected Problems (Last Updated 03/07/19 @ 11:32 by Antoine Arzola MD) Acute and chronic respiratory failure with hypoxia (Acute) NSTEMI (non-ST elevated myocardial infarction) (Acute) COPD exacerbation (Acute) Subjective: Patient did well overnight. Patient states she feels subjectively improved compared to yesterday. This morning, patient was able to come off of BiPAP therapy and oxygen has been weaned from 7 L/min to 5 L/min. Patient states that she does use 3 L/min at baseline. - Physical Exam Vitals/I&O's: Vital Signs Temp Pulse Resp BP Pulse Ox 36.6 C 60 20 H 144/66 H 92 03/08/19 10:00 03/08/19 10:00 03/08/19 10:00 03/08/19 10:00 03/08/19 10:00 Oxygen Flow Rate (L/min) 6 Oxygen Delivery Method Nasal Cannula Weight: 68.3 kg Body Mass Index (BMI) 29.3 Intake and Output for Last 24 Hours 03/06/19 03/07/19 03/08/19 23:59 23:59 23:59 Intake Total 430 / 830 1480 / 1480 Balance 430 / 830 1480 / 1480 General: Alert, Oriented x3, Cooperative, - - Mild conversational dyspnea. Appears older than stated age. HEENT: Atraumatic, PERRLA, EOMI, Normocephalic, - - Slight scleral injection Oral: Moist Mucosa, No Gingival or Mucosal Lesions/ Ulcerations Neck: Supple, No JVD, No Nodes, Trachea Midline Lungs: No rhonchi, No rales, Diminished, Wheezes, - - Symmetric expansion. No dullness to percussion. Cardiovascular: Regular rate, Regular Rhythm, Normal S1, Normal S2, No murmurs, No rub noted, No Gallop Abdomen: Bowel Sounds Present, Soft, Non Tender, Non-Distended Extremities: No cyanosis, No edema, Capillary Refill Less than 3 Seconds, Clubbing Skin: No rashes, No breakdown Musculoskeletal: No Tenderness to Palpation of Joints or Extremities Lymphatic: No Cervical, Supraclavicular, or Inguinal Adenopathy Neurological: Cranial nerves II-XII grossly intact, Neuro grossly intact, Motor Exam 5/5 strength throughout Psych/Mental Status: Alert and oriented to time, place, person, mood and affect Microbiology Past 72 Hours 03/01/19 20:50 Blood Culture (Wb) #2 - Anticubital Left Blood Culture - Final No growth in 5 days. 03/01/19 20:40 Blood Culture (Wb) - Right Hand Blood Culture - Final No growth in 5 days. Laboratory Results 03/08/19 05:10: WBC 10.6, RBC 4.47, Hgb 12.4, Hct 41.5, MCV 92.8, MCH 27.7, MCHC 29.9 L, RDW Std Deviation 51.9 H, RDW Coeff of Siobhan 15.1 H, Plt Count 306, MPV 8.9, Immature Gran % (Auto) 1.100 H, Neut % (Auto) 77.4 H, Lymph % (Auto) 15.2 L, [place] % (Auto) 5.8, Eos % (Auto) 0.2, Baso % (Auto) 0.3, Absolute Neuts (auto) 8.2 H, Absolute Lymphs (auto) 1.61, Nucleated RBC % 0, Differential Comment SCANNED 03/08/19 05:10: Sodium 140, Potassium 4.7, Chloride 93 L, Carbon Dioxide > 45.0 H*, Anion Gap TNP, BUN 21 H, Creatinine 0.54 L, Estim Creat Clear Calc 79.58, Est GFR (MDRD) Af Amer 147, Est GFR (MDRD) Non-Af 121, BUN/Creatinine Ratio 38.6 H, Glucose 233 H, Calcium 9.1 Current Medications Acetaminophen (Tylenol) 650 mg PO Q4H PRN PRN PRN Reason: Pain Score 1-10/Temp > 100.7 F Last Admin: 03/06/19 08:34 Dose: 650 mg Documented by: Albuterol Sulfate (Ventolin Aerosols) 2.5 mg INHALATION Q2H PRN PRN PRN Reason: SOB/Wheezing Last Admin: 03/06/19 01:29 Dose: 2.5 mg Documented by: Albuterol/Ipratropium (Duoneb) 3 ml INHALATION Q4HWA.RT [facility] Last Admin: 03/08/19 07:53 Dose: 3 ml Documented by: Aspirin (Aspirin, Baby) 81 mg PO DAILY@0800 [facility] Last Admin: 03/08/19 08:55 Dose: 81 mg Documented by: Carvedilol (Coreg) 25 mg PO BID [facility] Last Admin: 03/08/19 08:54 Dose: 25 mg Documented by: Digoxin (Lanoxin) 250 mcg PO DAILY [facility] Last Admin: 03/08/19 08:54 Dose: 250 mcg Documented by: Doxycycline Monohydrate (Doxycycline) 100 mg PO BID [facility] Last Admin: 03/08/19 08:54 Dose: 100 mg Documented by: Enoxaparin Sodium (Lovenox) 70 mg SC BID [facility] Last Admin: 03/08/19 08:55 Dose: 70 mg Documented by: Famotidine (Pepcid) 20 mg PO BID [facility] Last Admin: 03/08/19 08:55 Dose: 20 mg Documented by: Furosemide (Lasix) 40 mg PO DAILY [facility] Last Admin: 03/08/19 08:55 Dose: 40 mg Documented by: Glucagon () 1 mg IM .X1 PRN PRN Reason: Hypoglycemia Guaifenesin (Mucinex) 1,200 mg PO BID [facility] Last Admin: 03/08/19 08:55 Dose: 1,200 mg Documented by: Hydralazine HCl (Apresoline Iv) 10 mg IV Q4H PRN PRN PRN Reason: SBP > 160 Levothyroxine Sodium (Synthroid) 25 mcg PO DAILY@0600 [facility] Last Admin: 03/08/19 05:48 Dose: 25 mcg Documented by: Losartan Potassium (Cozaar) 50 mg PO DAILY [facility] Last Admin: 03/08/19 08:54 Dose: 50 mg Documented by: Melatonin (Melatonin) 3 mg PO QHS PRN PRN PRN Reason: INSOMNIA Methylprednisolone (Solu-Medrol) 40 mg IV Q12 [facility] Morphine Sulfate () 2 mg IV Q4H PRN PRN PRN Reason: Pain Score 6-10/10 Last Admin: 03/06/19 13:55 Dose: 2 mg Documented by: Nitroglycerin (Nitrostat) 0.4 mg SUBLINGUAL Q5M PRN PRN Reason: CARDIAC/CHEST PAIN Oxycodone HCl (Oxyir) 5 mg PO Q4H PRN PRN PRN Reason: Pain Score 4-5/10 Last Admin: 03/08/19 05:48 Dose: 5 mg Documented by: Paroxetine HCl (Paxil) 40 mg PO DAILY [facility] Last Admin: 01/21/20 08:54 Dose: 40 mg Documented by: Psyllium Hydrophilic Mucilloid (Metamucil) 1 packet PO DAILY PRN PRN PRN Reason: Constipation Last Admin: 03/06/19 21:53 Dose: 1 packet Documented by: Senna/Docusate Sodium (Senokot-S, Inessa-Colace) 2 tablet PO BID [facility] Last Admin: 03/08/19 08:55 Dose: 2 tablet Documented by: Sodium Chloride () 10 - 40 ml IV UD PRN PRN Reason: SALINE FLUSH Last Admin: 03/08/19 05:49 Dose: 10 ml Documented by: Spironolactone (Aldactone) 25 mg PO DAILY [facility] Last Admin: 03/08/19 08:54 Dose: 25 mg Documented by: Tamsulosin HCl (Flomax) 0.4 mg PO QHS [facility] Last Admin: 03/07/19 21:25 Dose: 0.4 mg Documented by: Throat Lozenges (Cepacol Sore Throat Lozenge) 1 lozenge MUCOUS MEM Q2H PRN PRN PRN Reason: Sore Throat/Cough Clinical Impression(s) from Imaging Studies Chest X-Ray 03/07/19 08:04 IMPRESSION: Hyperinflation. Stable increased markings at the lung bases suggestive of scarring with blunting of both costophrenic angles. Electronically Signed: Khurram Recio, at 13:15 EST , Service support , Medical Necessity - Tobacco Use Smoking Status: Former smoker Tobacco Use: Non-smoker Assessment/Plan All Active Problems (Last Updated 03/07/19 @ 11:32 by Antoine Arzola MD) Elevated LFTs (Acute) Acute and chronic respiratory failure with hypoxia (Acute) NSTEMI (non-ST elevated myocardial infarction) (Acute) COPD exacerbation (Acute) RECOMMENDATIONS: 1. Continue bronchodilators and IV steroids. Possible transition to prednisone tomorrow if continues to improve 2. Wean supplemental oxygen to maintain saturations at or above 90%. 3. Encourage incentive spirometer use and mobilize patient as tolerated. 4. Perform walking oximetry study prior to consideration for discharge home. 5. Outpatient pulmonary follow-up within 2 weeks is strongly recommended. 6. Outpatient PFTs will be ordered at the time of her follow-up office visit in the pulmonary medicine clinic. IMPRESSIONS: 1. Acute on chronic hypoxemic respiratory failure secondary to COPD with exacerbation due to combined influenza A and RSV infection The patient initially presented to the hospital with shortness of breath and was subsequently found to have a COPD exacerbation precipitated by both influenza A and RSV. She remains on scheduled bronchodilators and IV steroids. No baseline pulmonary function tests are available for review, but does have significant air trapping noted on imaging. Anticipate protracted course. Patient is on 3 L at baseline. Likely okay to all discontinue antibiotics from my perspective. Patient will need to follow-up as an outpatient for quantification and clarification of lung function. Continuation of BiPAP therapy with sleep is likely appropriate. If patient continues to improve, transition to prednisone therapy with a 12 to 14-day taper tomorrow would be appropriate. 2. Non-ST segment elevation PA Continue medical management per cardiology recommendations. 3. Continuous tobacco dependency Smoking cessation counseling was provided. 4. Hypertension/hyperlipidemia/hypothyroidism Complicates care, management, recovery and prognosis. Continue home medications as indicated. Code Visit Inpatient E&M: 45881 Subs Hosp L3
[2019-03-08] MEDS: Acetaminophen 325 MG Tablet 650 MG PO (12:44)
--- NOTE | 2019-03-08 16:15 | NURSING ---
This RN is now taking over care of this patient. Verbal report given by Kunal RESENDIZ
[2019-03-08] MEDS: Tamsulosin HCl 0.4 MG Capsule PO (22:19)
[2019-03-08] MEDS: Morphine 2 MG/ML Syringe IV (22:25)
[2019-03-09] VITALS (15 sets, daily range): BP systolic 114–140; BP diastolic 47–72; PULSE 64–110; RESP 12–20; TEMP 36.3–37.2; O2SAT 90–94
[2019-03-09] MEDS: Levothyroxine 25 MCG TABLET PO (05:15)
[2019-03-09] MEDS: Ipratropium/Albuterol Sulfate 3 ML AMPUL.NEB INHALATION ×3 (07:36→20:00)
--- NOTE | 2019-03-09 07:59 | PN_ITS ---
Patient Problems: Active and Suspected Problems (Last Updated 03/07/19 @ 11:32 by Antoine Arzola MD) Acute and chronic respiratory failure with hypoxia (Acute) NSTEMI (non-ST elevated myocardial infarction) (Acute) COPD exacerbation (Acute) Subjective: Chief complaint: Follow-up after admission for acute on chronic hypoxic and hypercapnic respiratory failure, COPD exacerbation and non-ST elevation PR. Patient seen and examined. No acute events overnight. She was taken off BiPAP this morning. At this time, she is on 4 L of oxygen. She reported continued slow improvement of her shortness of breath, still having mild dry cough. Her vital signs are stable. - Physical Exam Vitals/I&O's: Vital Signs Temp Pulse Resp BP Pulse Ox 98.1 F 72 20 H 131/54 H 90 03/09/19 02:47 03/09/19 06:45 03/09/19 03:30 03/09/19 02:47 03/09/19 03:30 Oxygen Flow Rate (L/min) 3 Oxygen Delivery Method Bi-pap Weight: 149 lb 14.629 oz Body Mass Index (BMI) 29.3 Intake and Output for Last 24 Hours 03/07/19 03/08/19 03/09/19 23:59 23:59 23:59 Intake Total 1480 / 1480 720 / 720 60 / 60 Balance 1480 / 1480 720 / 720 60 / 60 General: Alert, Oriented x3, Cooperative, - - Minimally short of breath. HEENT: Atraumatic, PERRLA, EOMI, Normocephalic Oral: Moist Mucosa, No Gingival or Mucosal Lesions/ Ulcerations Neck: Supple, No JVD, Negative Carotid Bruits, Trachea Midline, Thyroid Normal Size and Texture Lungs: No rhonchi, No wheeze, Diminished, Rales, Short of Breath, - - Decreased breath sounds bilateral, faint crackles at the bases. Cardiovascular: Regular rate, Regular Rhythm, Normal S1, Normal S2, PMI Normal Abdomen: Bowel Sounds Present, Soft, Non Tender, Non-Distended, No Hepato- splenomegaly Extremities: No clubbing, No cyanosis, No edema Skin: No rashes, No breakdown Lymphatic: No Cervical, Supraclavicular, or Inguinal Adenopathy Neurological: Cranial nerves II-XII grossly intact, Neuro grossly intact Psych/Mental Status: Normal Affect, Appropriate, Alert and oriented to time, place, person, mood and affect Microbiology Past 72 Hours 03/01/19 20:50 Blood Culture (Wb) #2 - Anticubital Left Blood Culture - Final No growth in 5 days. 03/01/19 20:40 Blood Culture (Wb) - Right Hand Blood Culture - Final No growth in 5 days. Current Medications Acetaminophen (Tylenol) 650 mg PO Q4H PRN PRN PRN Reason: Pain Score 1-10/Temp > 100.7 F Last Admin: 03/08/19 12:44 Dose: 650 mg Documented by: Albuterol Sulfate (Ventolin Aerosols) 2.5 mg INHALATION Q2H PRN PRN PRN Reason: SOB/Wheezing Last Admin: 03/06/19 01:29 Dose: 2.5 mg Documented by: Albuterol/Ipratropium (Duoneb) 3 ml INHALATION Q4HWA.RT [facility] Last Admin: 03/09/19 07:36 Dose: 3 ml Documented by: Aspirin (Aspirin, Baby) 81 mg PO DAILY@0800 [facility] Last Admin: 03/08/19 08:55 Dose: 81 mg Documented by: Carvedilol (Coreg) 25 mg PO BID [facility] Last Admin: 03/08/19 22:19 Dose: 25 mg Documented by: Digoxin (Lanoxin) 250 mcg PO DAILY [facility] Last Admin: 03/08/19 08:54 Dose: 250 mcg Documented by: Doxycycline Monohydrate (Doxycycline) 100 mg PO BID [facility] Last Admin: 03/08/19 22:19 Dose: 100 mg Documented by: Enoxaparin Sodium (Lovenox) 70 mg SC BID [facility] Last Admin: 03/08/19 22:30 Dose: 70 mg Documented by: Famotidine (Pepcid) 20 mg PO BID [facility] Last Admin: 03/08/19 22:19 Dose: 20 mg Documented by: Furosemide (Lasix) 40 mg PO DAILY [facility] Last Admin: 03/08/19 08:55 Dose: 40 mg Documented by: Glucagon () 1 mg IM .X1 PRN PRN Reason: Hypoglycemia Guaifenesin (Mucinex) 1,200 mg PO BID [facility] Last Admin: 03/08/19 22:19 Dose: 1,200 mg Documented by: Hydralazine HCl (Apresoline Iv) 10 mg IV Q4H PRN PRN PRN Reason: SBP > 160 Levothyroxine Sodium (Synthroid) 25 mcg PO DAILY@0600 [facility] Last Admin: 03/09/19 05:15 Dose: 25 mcg Documented by: Losartan Potassium (Cozaar) 50 mg PO DAILY [facility] Last Admin: 03/08/19 08:54 Dose: 50 mg Documented by: Melatonin (Melatonin) 3 mg PO QHS PRN PRN PRN Reason: INSOMNIA Methylprednisolone (Solu-Medrol) 40 mg IV Q12 [facility] Last Admin: 03/08/19 22:18 Dose: 40 mg Documented by: Morphine Sulfate () 2 mg IV Q4H PRN PRN PRN Reason: Pain Score 6-10/10 Last Admin: 03/08/19 22:25 Dose: 2 mg Documented by: Nitroglycerin (Nitrostat) 0.4 mg SUBLINGUAL Q5M PRN PRN Reason: CARDIAC/CHEST PAIN Oxycodone HCl (Oxyir) 5 mg PO Q4H PRN PRN PRN Reason: Pain Score 4-5/10 Last Admin: 03/08/19 17:04 Dose: 5 mg Documented by: Paroxetine HCl (Paxil) 40 mg PO DAILY [facility] Last Admin: 03/08/19 08:54 Dose: 40 mg Documented by: Psyllium Hydrophilic Mucilloid (Metamucil) 1 packet PO DAILY PRN PRN PRN Reason: Constipation Last Admin: 03/06/19 21:53 Dose: 1 packet Documented by: Senna/Docusate Sodium (Senokot-S, Inessa-Colace) 2 tablet PO BID [facility] Last Admin: 03/08/19 22:19 Dose: 2 tablet Documented by: Sodium Chloride () 10 - 40 ml IV UD PRN PRN Reason: SALINE FLUSH Last Admin: 03/08/19 22:23 Dose: 30 ml Documented by: Spironolactone (Aldactone) 25 mg PO DAILY [facility] Last Admin: 03/08/19 08:54 Dose: 25 mg Documented by: Tamsulosin HCl (Flomax) 0.4 mg PO QHS [facility] Last Admin: 03/08/19 22:19 Dose: 0.4 mg Documented by: Throat Lozenges (Cepacol Sore Throat Lozenge) 1 lozenge MUCOUS MEM Q2H PRN PRN PRN Reason: Sore Throat/Cough Medical Necessity - Tobacco Use Smoking Status: Former smoker Tobacco Use: Non-smoker Assessment/Plan All Active Problems (Last Updated 03/07/19 @ 11:32 by Antoine Arzola MD) Elevated LFTs (Acute) Acute and chronic respiratory failure with hypoxia (Acute) NSTEMI (non-ST elevated myocardial infarction) (Acute) COPD exacerbation (Acute) This is a 58 years old female patient presented to the emergency room because of worsening shortness of breath with cough, admitted for acute on chronic hypoxic and hypercapnic respiratory failure secondary to acute COPD exacerbation and also found to have acute constipation a month. #1 acute on chronic hypoxic and hypercapnic respiratory failure: Secondary to COPD exacerbation. She is on BiPAP, IV steroids, doxycycline and bronchodilators. This morning, she was taken off BiPAP, now she is on 4 L of oxygen. Symptoms continue to improve slowly. Other vital signs are stable. She tested positive for influenza A and RSV A. Plan to continue same treatment, continue BiPAP at night, oxygen by nasal cannula at daytime, ambulatory pulse ox tomorrow morning. #2 acute COPD exacerbation: Triggered by influenza A and RSV type A. Remained on IV steroids, doxycycline and bronchodilators. She has been tolerating BiPAP. Today, she tolerated Oxymizer cannula. Plan as above, will switch to p.o. steroids tomorrow morning. #3 non-ST relation PR: She is on aspirin, diabetic Lovenox twice daily, Coreg. 2D echocardiogram revealed ejection fraction 55%, findings consistent with Takotsubo cardiomyopathy. She is on Lasix, losartan, Coreg and Aldactone. Cardiology on the case. Will discontinue therapeutic Lovenox. #4 recent history of hepatitis A: Liver transaminases and alkaline phosphatase been trending down. Bilirubin is normal. Patient denied any abdominal pain. #5 chronic systolic CHF/status post ICD and pacemaker placement: 2D echocardiogram reviewed as above. She is on Lasix, losartan, Aldactone and Coreg. #6 hypertension: Blood pressure stable, continue Coreg, Lasix, losartan and Aldactone as well as IV hydralazine PRN. #7 hypothyroidism: Continue levothyroxine. #8 DVT prophylaxis: Subcu Lovenox.. This note was generated with [employer] dictation software. It may contain incorrect words, spelling, and punctuation that were not noted in checking the note before signing. Code Visit Inpatient E&M: 72459 Subs Hosp L2
--- NOTE | 2019-03-09 08:24 | PCM.PN.CARD ---
Subjectve: The patient is awake and alert. She states she feels somewhat better today with respect to her breathing and overall . Objective: Vital Signs Temp Pulse Resp BP Pulse Ox 98.1 F 88 20 H 131/54 H 90 03/09/19 02:47 03/09/19 07:20 03/09/19 07:20 03/09/19 02:47 03/09/19 03:30 Oxygen Flow Rate (L/min) 4 Oxygen Delivery Method Nasal Cannula Weight: 149 lb 14.629 oz Body Mass Index (BMI) 29.3 Intake and Output for Last 24 Hours 03/07/19 03/08/19 03/09/19 23:59 23:59 23:59 Intake Total 1480 / 1480 720 / 720 60 / 60 Balance 1480 / 1480 720 / 720 60 / 60 General: Awake, Alert, Oriented x 3, Cooperative HEENT: Atraumatic, Normocephalic, PERRL, EOMI, Sclera Non Icteric Oral: Moist Mucosa Neck: Supple, Good ROM, No JVD Lungs: Rhonchi Cardiovascular: Regular Rhythm, Normal S1, Normal S2 Abdomen: Bowel Sounds Present, Soft, Non Tender Extremities: No edema Psych/Mental Status: Appropriate Rhythm: Electronic ventricular paced rhythm Medical Necessity - Tobacco Use Smoking Status: Former smoker Tobacco Use: Non-smoker Assessment/Plan 1. Non-ST segment elevation [place] At the present time she has findings compatible with a non-ST segment elevation [place]. Based upon her previous history of a non-CAD related cardiomyopathy this may be a type II event secondary to supply demand mismatch. This may be brought on by her underlying acute pulmonary disease process. Based upon her echocardiographic images there is concerned that she has developed a Takotsubo syndrome/stress-induced cardiomyopathy. At the present time she will continue to be monitored. She will continue medical management as deemed appropriate. Over time, it may not be unreasonable to consider a follow-up transthoracic echocardiogram to reassess her left ventricular wall motion systolic function. If her overall left ventricular wall motion systolic function improves then perhaps she may not need repeat invasive evaluation of her coronary anatomy. 2. Non-CAD related cardiomyopathy Again she has a history of a non-CAD related cardiomyopathy with diminished LV systolic function. This led her to biventricular pacing. At the moment she has echocardiographic findings appearing compatible with a Takotsubo syndrome/stress-induced cardiomyopathy. She does not appear to have evidence of acute on chronic systolic mediated CHF at the moment. She will continue medical management and evaluation as noted above. 3. Chronic systolic mediated CHF Again at the moment she does not appear to have acute on chronic systolic mediated CHF type symptoms. She will need to continue medical therapy with adjustment as deemed appropriate during her acute respiratory course, etc. 4. Mitral valve regurgitation She does have an element of mitral valve regurgitation. She will continue to be followed by history, exam, and echocardiogram as deemed appropriate. 5. Ventricular ectopy/tachycardia Her ICD was interrogated this a.m. Her findings demonstrate PVCs and what was reported as supraventricular tachyarrhythmias as well as biventricular pacing. At the moment she will continue medical management. This will include an attempt at increasing her beta-donal therapy. Depending upon her findings she may or may not need further medical management such as antiarrhythmic therapy. 6. Biventricular ICD She does have a biventricular ICD in place. This was reassessed today. Her device was reported as functioning appropriately. 7. Hyperlipidemia She will continue lipid-lowering therapy as deemed appropriate. 8. Hypertension She will continue to have her blood pressure monitor. Her medications can be adjusted as needed. 9. Acute respiratory event/COPD exacerbation She will continue evaluation care per internal medicine. She is also being evaluated by pulmonology/critical care medicine. She is currently receiving BiPAP therapy. 10. Elevated hepatic transaminase levels Repeat hepatic labs will be requested. Her statins have been placed on hold. She may need further nonmedication/noncardiac evaluation as deemed appropriate. This note was generated using a voice recognition system and there may be incorrect words, spelling or punctuation that were not noted when reviewing the office note prior to saving.
[2019-03-09 09:03] LABS: AST(SGOT) 27 U/L (15-37); Alanine Aminotransfer ALT/SGPT 96 U/L (13-56); Albumin, Serum 2.4 g/dL (3.2-5.0); Alkaline Phosphatase 114 U/L (45-117); Bilirubin, Direct 0.17 mg/dL (0.00-0.30); Globulin 4.6 g/dL (2.2-4.2)
[2019-03-09] MEDS: Digoxin 250 MCG Tablet PO (09:07)
[2019-03-09] MEDS: Spironolactone 25 MG Tablet PO (09:07)
[2019-03-09] MEDS: Doxycycline 100 MG CAPSULE PO ×2 (09:07→20:22)
[2019-03-09] MEDS: Enoxaparin 80 MG/0.8 ML Syringe 70 MG SC (09:08)
[2019-03-09] MEDS: Paroxetine 20 MG Tablet 40 MG PO (09:08)
[2019-03-09] MEDS: Famotidine 20 MG Tablet PO ×2 (09:08→20:22)
[2019-03-09] MEDS: guaiFENesin 1,200 MG Tablet 1200 MG PO ×2 (09:08→20:22)
[2019-03-09] MEDS: Furosemide 40 MG Tablet PO (09:08)
[2019-03-09] MEDS: Carvedilol 25 MG Tablet PO ×2 (09:08→20:23)
[2019-03-09] MEDS: Aspirin 81 MG TAB.CHEW PO (09:08)
[2019-03-09] MEDS: Losartan Potassium 50 MG Tablet PO (09:08)
[2019-03-09] MEDS: 0.9% Saline Lock 10 ML Syringe IV ×2 (09:09→20:23)
[2019-03-09] MEDS: Senna/Docusate Sodium 1 Tablet 2 TABLET PO (09:09)
--- NOTE | 2019-03-09 10:25 | PN_ITS ---
Patient Problems: Active and Suspected Problems (Last Updated 03/07/19 @ 11:32 by Antoine Arzola MD) Acute and chronic respiratory failure with hypoxia (Acute) NSTEMI (non-ST elevated myocardial infarction) (Acute) COPD exacerbation (Acute) Subjective: Patient continues to improve. Patient has been on 3 to 4 L nasal cannula during the day and BiPAP at night. Patient continues to report significant dyspnea on exertion, but subjectively feels that her breathing is improving. Patient is denying any chest pain at this time. - Physical Exam Vitals/I&O's: Vital Signs Temp Pulse Resp BP Pulse Ox 37.2 C 85 18 137/47 H 94 03/09/19 08:45 03/09/19 08:45 03/09/19 08:45 03/09/19 08:45 03/09/19 08:45 Oxygen Flow Rate (L/min) 4 Oxygen Delivery Method Nasal Cannula Weight: 68 kg Body Mass Index (BMI) 29.3 Intake and Output for Last 24 Hours 03/07/19 03/08/19 03/09/19 23:59 23:59 23:59 Intake Total 1480 / 1480 720 / 720 60 / 60 Balance 1480 / 1480 720 / 720 60 / 60 General: Alert, Oriented x3, Cooperative, - - Mild conversational dyspnea. Appears older than stated age. HEENT: Atraumatic, PERRLA, EOMI, Normocephalic, - - No scleral icterus or injection noted Oral: Moist Mucosa, No Gingival or Mucosal Lesions/ Ulcerations Neck: Supple, No JVD, No Nodes, Trachea Midline Lungs: No rhonchi, No rales, Diminished, Wheezes - Better air exchange Cardiovascular: Regular rate, Regular Rhythm, Normal S1, Normal S2, No murmurs, No rub noted, No Gallop Abdomen: Bowel Sounds Present, Soft, Non Tender, Non-Distended Extremities: No clubbing, No cyanosis, Edema Skin: No rashes, No breakdown Musculoskeletal: No Tenderness to Palpation of Joints or Extremities Lymphatic: No Cervical, Supraclavicular, or Inguinal Adenopathy Neurological: Cranial nerves II-XII grossly intact, Neuro grossly intact, Motor Exam 5/5 strength throughout Psych/Mental Status: Alert and oriented to time, place, person, mood and affect Microbiology Past 72 Hours 03/01/19 20:50 Blood Culture (Wb) #2 - Anticubital Left Blood Culture - Final No growth in 5 days. 03/01/19 20:40 Blood Culture (Wb) - Right Hand Blood Culture - Final No growth in 5 days. Laboratory Results 03/09/19 08:35: Total Bilirubin 0.30, Direct Bilirubin 0.17, AST 27, ALT 96 H, Alkaline Phosphatase 114, Total Protein 7.0, Albumin 2.4 L, Globulin 4.6 H Current Medications Acetaminophen (Tylenol) 650 mg PO Q4H PRN PRN PRN Reason: Pain Score 1-10/Temp > 100.7 F Last Admin: 03/08/19 12:44 Dose: 650 mg Documented by: Albuterol Sulfate (Ventolin Aerosols) 2.5 mg INHALATION Q2H PRN PRN PRN Reason: SOB/Wheezing Last Admin: 03/06/19 01:29 Dose: 2.5 mg Documented by: Albuterol/Ipratropium (Duoneb) 3 ml INHALATION Q4HWA.RT [facility] Last Admin: 03/09/19 07:36 Dose: 3 ml Documented by: Aspirin (Aspirin, Baby) 81 mg PO DAILY@0800 [facility] Last Admin: 03/09/19 09:08 Dose: 81 mg Documented by: Carvedilol (Coreg) 25 mg PO BID [facility] Last Admin: 03/09/19 09:08 Dose: 25 mg Documented by: Digoxin (Lanoxin) 250 mcg PO DAILY [facility] Last Admin: 03/09/19 09:07 Dose: 250 mcg Documented by: Doxycycline Monohydrate (Doxycycline) 100 mg PO BID [facility] Last Admin: 03/09/19 09:07 Dose: 100 mg Documented by: Enoxaparin Sodium (Lovenox) 70 mg SC BID [facility] Last Admin: 03/09/19 09:08 Dose: 70 mg Documented by: Famotidine (Pepcid) 20 mg PO BID [facility] Last Admin: 03/09/19 09:08 Dose: 20 mg Documented by: Furosemide (Lasix) 40 mg PO DAILY [facility] Last Admin: 03/09/19 09:08 Dose: 40 mg Documented by: Glucagon () 1 mg IM .X1 PRN PRN Reason: Hypoglycemia Guaifenesin (Mucinex) 1,200 mg PO BID [facility] Last Admin: 03/09/19 09:08 Dose: 1,200 mg Documented by: Hydralazine HCl (Apresoline Iv) 10 mg IV Q4H PRN PRN PRN Reason: SBP > 160 Levothyroxine Sodium (Synthroid) 25 mcg PO DAILY@0600 [facility] Last Admin: 03/09/19 05:15 Dose: 25 mcg Documented by: Losartan Potassium (Cozaar) 50 mg PO DAILY [facility] Last Admin: 03/09/19 09:08 Dose: 50 mg Documented by: Melatonin (Melatonin) 3 mg PO QHS PRN PRN PRN Reason: INSOMNIA Methylprednisolone (Solu-Medrol) 40 mg IV Q12 [facility] Last Admin: 03/09/19 09:08 Dose: 40 mg Documented by: Morphine Sulfate () 2 mg IV Q4H PRN PRN PRN Reason: Pain Score 6-10/10 Last Admin: 03/08/19 22:25 Dose: 2 mg Documented by: Nitroglycerin (Nitrostat) 0.4 mg SUBLINGUAL Q5M PRN PRN Reason: CARDIAC/CHEST PAIN Oxycodone HCl (Oxyir) 5 mg PO Q4H PRN PRN PRN Reason: Pain Score 4-5/10 Last Admin: 03/08/19 17:04 Dose: 5 mg Documented by: Paroxetine HCl (Paxil) 40 mg PO DAILY [facility] Last Admin: 03/09/19 09:08 Dose: 40 mg Documented by: Psyllium Hydrophilic Mucilloid (Metamucil) 1 packet PO DAILY PRN PRN PRN Reason: Constipation Last Admin: 03/06/19 21:53 Dose: 1 packet Documented by: Senna/Docusate Sodium (Senokot-S, Inessa-Colace) 2 tablet PO BID [facility] Last Admin: 03/09/19 09:09 Dose: 2 tablet Documented by: Sodium Chloride () 10 - 40 ml IV UD PRN PRN Reason: SALINE FLUSH Last Admin: 03/09/19 09:09 Dose: 20 ml Documented by: Spironolactone (Aldactone) 25 mg PO DAILY [facility] Last Admin: 03/09/19 09:07 Dose: 25 mg Documented by: Tamsulosin HCl (Flomax) 0.4 mg PO QHS [facility] Last Admin: 03/08/19 22:19 Dose: 0.4 mg Documented by: Throat Lozenges (Cepacol Sore Throat Lozenge) 1 lozenge MUCOUS MEM Q2H PRN PRN PRN Reason: Sore Throat/Cough Medical Necessity - Tobacco Use Smoking Status: Former smoker Tobacco Use: Non-smoker Assessment/Plan All Active Problems (Last Updated 03/07/19 @ 11:32 by Antoine Arzola MD) Elevated LFTs (Acute) Acute and chronic respiratory failure with hypoxia (Acute) NSTEMI (non-ST elevated myocardial infarction) (Acute) COPD exacerbation (Acute) RECOMMENDATIONS: 1. Continue bronchodilators and IV steroids. Possible transition to prednisone tomorrow if continues to improve 2. Wean supplemental oxygen to maintain saturations at or above 90%. 3. Encourage incentive spirometer use and mobilize patient as tolerated. 4. Perform walking oximetry study prior to consideration for discharge home. 5. Outpatient pulmonary follow-up within 2 weeks is strongly recommended. 6. Outpatient PFTs will be ordered at the time of her follow-up office visit in the pulmonary medicine clinic. IMPRESSIONS: 1. Acute on chronic hypoxemic respiratory failure secondary to COPD with exacerbation due to combined influenza A and RSV infection The patient initially presented to the hospital with shortness of breath and was subsequently found to have a COPD exacerbation precipitated by both influenza A and RSV. She remains on scheduled bronchodilators and IV steroids. No baseline pulmonary function tests are available for review, but does have significant air trapping noted on imaging. Anticipate protracted course. Patient is on 3 L at baseline. Patient will need to follow-up as an outpatient for quantification and clarification of lung function. Continuation of BiPAP therapy with sleep is likely appropriate. Patient still with significant dyspnea on exertion. Possibly tomorrow transition to prednisone therapy with a 12 to 14-day taper would be appropriate. 2. Non-ST segment elevation [place] Continue medical management per cardiology recommendations. 3. Continuous tobacco dependency Smoking cessation counseling was provided. 4. Hypertension/hyperlipidemia/hypothyroidism Complicates care, management, recovery and prognosis. Continue home me dications as indicated. Code Visit Inpatient E&M: 33101 Subs Hosp L2
--- NOTE | 2019-03-09 10:39 | CASEMGMT ---
SW spoke with patient again this am regarding d/c plan. SW told her physician is considering discharging her tomorrow. SW told her if she is planning on going to a custodial we need to know which facilities she would prefer. SW left a list of nursing homes in the room and encouraged patient to look at the list and let someone know if she is interested in SNF. Amie GALVAN MSW
--- NOTE | 2019-03-09 13:23 | CASEMGMT ---
Addendum entered by Ana Dai 03/09/19 13:52: SW called [facility] as SW aware they have open beds. Message left, referral faxed. SW asked Ricarda at [facility] to follow up w/SW Amie Coronel tomorrow. APULINA Victor Original Note: SW met w/pt in room, pt sleeping, on bipapp mask. SW woke pt, SW asked pt about going somewhere for rehab, if she's thought about it. Pt states yes, states, I'll do what I gotta do. In regard to facilities, pt has no preference. SW explained we can try for the unit in the hospital first and if there are no beds, can try for other facilities in the [place] area. Pt responded with, whatever, closed eyes and tried to go back to sleep. SW called [facility], they have no beds. SW will make referral to other [place] based facilities shortly. PAULINA Victor
--- NOTE | 2019-03-09 14:11 | NURSING ---
This RN has attempted to complete walking pulse ox x3 thus far this shift. Pt refusing. Pt states I am too tired. Will attempt again later this shift. Will notify
[2019-03-09] MEDS: Tamsulosin HCl 0.4 MG Capsule PO (20:22)
[2019-03-09] MEDS: Acetaminophen 325 MG Tablet 650 MG PO (20:23)
[2019-03-10] VITALS (10 sets, daily range): BP systolic 92–110; BP diastolic 48–65; PULSE 61–95; RESP 18–20; TEMP 36.6; O2SAT 86–94
[2019-03-10] MEDS: Levothyroxine 25 MCG TABLET PO (06:09)
[2019-03-10] MEDS: Ipratropium/Albuterol Sulfate 3 ML AMPUL.NEB INHALATION (08:07)
--- NOTE | 2019-03-10 08:38 | PCM.PN.CARD ---
Subjectve: The patient states she continues to feel better overall. She denies any chest discomfort. She has her chronic shortness of breath and cough. Objective: Vital Signs Temp Pulse Resp BP Pulse Ox 97.8 F 87 20 H 101/61 91 03/10/19 02:30 03/10/19 08:09 03/10/19 08:09 03/10/19 02:30 03/10/19 08:09 Oxygen Flow Rate (L/min) [ 4 AMBULATION with Oxygen] Oxygen Flow Rate (L/min) 4 Oxygen Delivery Method Nasal Cannula Weight: 147 lb 4.301 oz Body Mass Index (BMI) 29.3 Intake and Output for Last 24 Hours 03/08/19 03/09/19 03/10/19 23:59 23:59 23:59 Intake Total 720 / 720 500 / 740 360 / 360 Output Total 200 / 200 Balance 720 / 720 500 / 540 160 / 160 General: Awake, Alert, Oriented x 3, Cooperative, No Acute Distress HEENT: Atraumatic, Normocephalic, PERRL, EOMI, Sclera Non Icteric Oral: Moist Mucosa Neck: Supple, Good ROM, No JVD Lungs: Rhonchi Cardiovascular: Regular Rhythm, Normal S1, Normal S2 Abdomen: Bowel Sounds Present, Soft Extremities: No edema Psych/Mental Status: Appropriate 03/09/19 08:35: Total Bilirubin 0.30, Direct Bilirubin 0.17 Rhythm: Electronic ventricular paced rhythm Medical Necessity - Tobacco Use Smoking Status: Former smoker Tobacco Use: Non-smoker Assessment/Plan 1. Non-ST segment elevation DC At the present time she has findings compatible with a non-ST segment elevation DC. Based upon her previous history of a non-CAD related cardiomyopathy this may be a type II event secondary to supply demand mismatch. This may be brought on by her underlying acute pulmonary disease process. Based upon her echocardiographic images there is concerned that she has developed a Takotsubo syndrome/stress-induced cardiomyopathy. At the present time she will continue to be monitored. She will continue medical management as deemed appropriate. Over time, it may not be unreasonable to consider a follow-up transthoracic echocardiogram to reassess her left ventricular wall motion systolic function. If her overall left ventricular wall motion systolic function improves then perhaps she may not need repeat invasive evaluation of her coronary anatomy. 2. Non-CAD related cardiomyopathy Again she has a history of a non-CAD related cardiomyopathy with diminished LV systolic function. This led her to biventricular pacing. At the moment she has echocardiographic findings appearing compatible with a Takotsubo syndrome/stress-induced cardiomyopathy. She does not appear to have evidence of acute on chronic systolic mediated CHF at the moment. She will continue medical management and evaluation as noted above. 3. Chronic systolic mediated CHF Again at the moment she does not appear to have acute on chronic systolic mediated CHF type symptoms. She will need to continue medical therapy with adjustment as deemed appropriate during her acute respiratory course, etc. 4. Mitral valve regurgitation She does have an element of mitral valve regurgitation. She will continue to be followed by history, exam, and echocardiogram as deemed appropriate. 5. Ventricular ectopy/tachycardia Her ICD was interrogated this a.m. Her findings demonstrate PVCs and what was reported as supraventricular tachyarrhythmias as well as biventricular pacing. At the moment she will continue medical management. This will include an attempt at increasing her beta-donal therapy. Depending upon her findings she may or may not need further medical management such as antiarrhythmic therapy. 6. Biventricular ICD She does have a biventricular ICD in place. This was reassessed today. Her device was reported as functioning appropriately. 7. Hyperlipidemia She will continue lipid-lowering therapy as deemed appropriate. 8. Hypertension She will continue to have her blood pressure monitor. Her medications can be adjusted as needed. 9. Acute respiratory event/COPD exacerbation She will continue evaluation care per internal medicine. She is also being evaluated by pulmonology/critical care medicine. She is currently receiving BiPAP therapy. 10. Elevated hepatic transaminase levels Her hepatic transaminase levels appear to be decreasing. She states she does have a history of hepatitis. Thus this may be a contributing factor to her original elevation of her hepatic transaminase levels. It is unclear whether her statins participated in this. However her statins remain on hold at this time. Over time, hopefully as her clinical course stabilizes, consideration can be given to reintroducing her statin therapy with follow-up hepatic transaminase levels, etc. She may need further nonmedication/noncardiac evaluation as deemed appropriate. This note was generated using a voice recognition system and there may be incorrect words, spelling or punctuation that were not noted when reviewing the office note prior to saving.
[2019-03-10] MEDS: Famotidine 20 MG Tablet PO (09:10)
[2019-03-10] MEDS: Furosemide 40 MG Tablet PO (09:11)
[2019-03-10] MEDS: Spironolactone 25 MG Tablet PO (09:11)
[2019-03-10] MEDS: Aspirin 81 MG TAB.CHEW PO (09:11)
[2019-03-10] MEDS: Doxycycline 100 MG CAPSULE PO (09:11)
[2019-03-10] MEDS: Paroxetine 20 MG Tablet 40 MG PO (09:11)
[2019-03-10] MEDS: guaiFENesin 1,200 MG Tablet 1200 MG PO (09:12)
[2019-03-10] MEDS: Acetaminophen 325 MG Tablet 650 MG PO (09:13)
[2019-03-10] MEDS: Enoxaparin 40 MG/0.4 ML Syringe SC (09:14)
[2019-03-10] MEDS: 0.9% Saline Lock 10 ML Syringe IV (09:15)
[2019-03-10] MEDS: Digoxin 250 MCG Tablet PO (09:15)
--- NOTE | 2019-03-10 09:41 | CASEMGMT ---
SW received a voice mail from [facility] and they can accept patient. They did have a few questions. SW faxed the information they requested which will answer their questions. KAITLIN spoke with patient letting her know that [facility] [place] said they could take her if she decides to go to a retirement. She said she is not sure what she should do. KAITLIN told her she needs to think if she were to go home would she be able to the things she normally does and care for herself. She said she is not sure, but she could probably have someone stay with her. She asked SW to give her a few hours to think about it. SW notified physician and he was planning on checking back with her in a few hours as well. KAITLIN spoke with Caryn at [facility] and she is ordering the bipap. Amie GALVAN MSW
--- NOTE | 2019-03-10 10:29 | PN_ITS ---
Subjective: The patient was seen and examined at the bedside this morning. Events from the last 24 hours have been reviewed. The patient is currently afebrile, hemodynamically stable and maintaining appropriate oxygen saturations on 4- 6L/min via nasal cannula. Although improving slowly, the patient continues to report the presence of shortness of breath. Objective: The patient's most recent lab work, culture data and imaging studies have all been personally reviewed. - Physical Exam Vitals/I&O's: Vital Signs Temp Pulse Resp BP Pulse Ox 97.8 F 95 18 94/55 L 86 03/10/19 09:07 03/10/19 09:07 03/10/19 09:07 03/10/19 09:07 03/10/19 09:21 Oxygen Flow Rate (L/min) [ 4 AMBULATION with Oxygen] Oxygen Flow Rate (L/min) 5 Oxygen Delivery Method Nasal Cannula Weight: 147 lb 4.301 oz Body Mass Index (BMI) 29.3 Intake and Output for Last 24 Hours 03/08/19 03/09/19 03/10/19 23:59 23:59 23:59 Intake Total 720 / 720 500 / 740 360 / 360 Output Total 200 / 200 Balance 720 / 720 500 / 540 160 / 160 General: Alert, Cooperative, No apparent distress HEENT: Atraumatic, PERRLA, Normocephalic Oral: No Gingival or Mucosal Lesions/ Ulcerations Neck: Supple, No Nodes, Trachea Midline Lungs: Diminished, Wheezes Cardiovascular: Regular rate, Regular Rhythm, Normal S1, Normal S2 Abdomen: Bowel Sounds Present, Soft, Non Tender Extremities: No clubbing, No cyanosis Skin: No breakdown Musculoskeletal: No Tenderness to Palpation of Joints or Extremities Lymphatic: No Cervical, Supraclavicular, or Inguinal Adenopathy Neurological: Neuro grossly intact Psych/Mental Status: Normal Affect, Appropriate Labs (Last 48 Hours) 03/09/19 08:35 Total Bilirubin 0.30 Direct Bilirubin 0.17 AST 27 ALT 96 H Alkaline Phosphatase 114 Total Protein 7.0 Albumin 2.4 L Globulin 4.6 H Clinical Impression(s) from Imaging Studies Chest X-Ray 03/01/19 21:00 IMPRESSION: No acute thoracic pathology. COPD. Electronically Signed: Memo Hammond, at 21:27 EST Tel , Service support , Chest X-Ray 03/07/19 08:04 IMPRESSION: Hyperinflation. Stable increased markings at the lung bases suggestive of scarring with blunting of both costophrenic angles. Electronically Signed: Khurram Recio, at 13:15 EST , Service support , Current Medications Acetaminophen (Tylenol) 650 mg PO Q4H PRN PRN PRN Reason: Pain Score 1-10/Temp > 100.7 F Last Admin: 03/10/19 09:13 Dose: 650 mg Documented by: Albuterol Sulfate (Ventolin Aerosols) 2.5 mg INHALATION Q2H PRN PRN PRN Reason: SOB/Wheezing Last Admin: 03/06/19 01:29 Dose: 2.5 mg Documented by: Albuterol/Ipratropium (Duoneb) 3 ml INHALATION Q4HWA.RT [facility] Last Admin: 03/10/19 08:07 Dose: 3 ml Documented by: Aspirin (Aspirin, Baby) 81 mg PO DAILY@0800 [facility] Last Admin: 03/10/19 09:11 Dose: 81 mg Documented by: Carvedilol (Coreg) 25 mg PO BID [facility] Last Admin: 03/09/19 20:23 Dose: 25 mg Documented by: Digoxin (Lanoxin) 250 mcg PO DAILY [facility] Last Admin: 03/10/19 09:15 Dose: 250 mcg Documented by: Doxycycline Monohydrate (Doxycycline) 100 mg PO BID [facility] Last Admin: 03/10/19 09:11 Dose: 100 mg Documented by: Enoxaparin Sodium (Lovenox) 40 mg SC DAILY [facility] Last Admin: 03/10/19 09:14 Dose: 40 mg Documented by: Famotidine (Pepcid) 20 mg PO BID [facility] Last Admin: 03/10/19 09:10 Dose: 20 mg Documented by: Furosemide (Lasix) 40 mg PO DAILY [facility] Last Admin: 03/10/19 09:11 Dose: 40 mg Documented by: Glucagon () 1 mg IM .X1 PRN PRN Reason: Hypoglycemia Guaifenesin (Mucinex) 1,200 mg PO BID [facility] Last Admin: 03/10/19 09:12 Dose: 1,200 mg Documented by: Hydralazine HCl (Apresoline Iv) 10 mg IV Q4H PRN PRN PRN Reason: SBP > 160 Levothyroxine Sodium (Synthroid) 25 mcg PO DAILY@0600 [facility] Last Admin: 03/10/19 06:09 Dose: 25 mcg Documented by: Losartan Potassium (Cozaar) 50 mg PO DAILY [facility] Last Admin: 03/09/19 09:08 Dose: 50 mg Documented by: Melatonin (Melatonin) 3 mg PO QHS PRN PRN PRN Reason: INSOMNIA Methylprednisolone (Solu-Medrol) 40 mg IV Q12 [facility] Last Admin: 03/10/19 09:18 Dose: 40 mg Documented by: Morphine Sulfate () 2 mg IV Q4H PRN PRN PRN Reason: Pain Score 6-10/10 Last Admin: 03/08/19 22:25 Dose: 2 mg Documented by: Nitroglycerin (Nitrostat) 0.4 mg SUBLINGUAL Q5M PRN PRN Reason: CARDIAC/CHEST PAIN Oxycodone HCl (Oxyir) 5 mg PO Q4H PRN PRN PRN Reason: Pain Score 4-5/10 Last Admin: 03/08/19 17:04 Dose: 5 mg Documented by: Paroxetine HCl (Paxil) 40 mg PO DAILY [facility] Last Admin: 03/10/19 09:11 Dose: 40 mg Documented by: Psyllium Hydrophilic Mucilloid (Metamucil) 1 packet PO DAILY PRN PRN PRN Reason: Constipation Last Admin: 03/06/19 21:53 Dose: 1 packet Documented by: Senna/Docusate Sodium (Senokot-S, Inessa-Colace) 2 tablet PO BID [facility] Last Admin: 03/10/19 09:18 Dose: Not Given Documented by: Sodium Chloride () 10 - 40 ml IV UD PRN PRN Reason: SALINE FLUSH Last Admin: 03/10/19 09:15 Dose: 20 ml Documented by: Spironolactone (Aldactone) 25 mg PO DAILY [facility] Last Admin: 03/10/19 09:11 Dose: 25 mg Documented by: Tamsulosin HCl (Flomax) 0.4 mg PO QHS [facility] Last Admin: 03/09/19 20:22 Dose: 0.4 mg Documented by: Throat Lozenges (Cepacol Sore Throat Lozenge) 1 lozenge MUCOUS MEM Q2H PRN PRN PRN Reason: Sore Throat/Cough Medical Necessity - Tobacco Use Smoking Status: Former smoker Tobacco Use: Non-smoker Assessment/Plan All Active Problems (Last Updated 03/07/19 @ 11:32 by Antoine Arzola MD) Elevated LFTs (Acute) Acute and chronic respiratory failure with hypoxia (Acute) NSTEMI (non-ST elevated myocardial infarction) (Acute) COPD exacerbation (Acute) RECOMMENDATIONS: 1. Continue Tamiflu, bronchodilators and steroids. I do anticipate a prolonged recovery phase for this patient. 2. Wean supplemental oxygen to maintain saturations at or above 90%. 3. Encourage incentive spirometer use and mobilize patient as tolerated. 4. Perform walking oximetry study prior to consideration for discharge home. 5. Outpatient pulmonary follow-up within 2 weeks is strongly recommended. 6. Outpatient PFTs will be ordered at the time of her follow-up office visit in the pulmonary medicine clinic. IMPRESSIONS: 1. Acute on chronic hypoxemic respiratory failure secondary to COPD with exacerbation due to combined influenza A and RSV infection The patient initially presented to the hospital with shortness of breath and was subsequently found to have a COPD exacerbation precipitated by both influenza A and RSV. She remains on Tamiflu, scheduled bronchodilators and steroids. I do anticipate a prolonged recovery phase for this patient. She does have a baseline 3 L/min supplemental oxygen requirement at all times. I would strongly recommend that she follow-up with us in the pulmonary medicine clinic upon discharge, as she has been lost to follow-up since 2018. At that time, orders can be placed for pulmonary function studies. 2. Non-ST segment elevation [facility] Continue medical management per cardiology recommendations. 3. Continuous tobacco dependency Smoking cessation counseling was provided. 4. Hypertension/hyperlipidemia/hypothyroidism Complicates care, management, recovery and prognosis. Continue home medications as indicated. This note was generated with PhotoShelter[employer] software. It may contain incorrect words, spelling, and punctuation that were not noted in checking the note before signing. Code Visit Inpatient E&M: 30532 Subs Hosp L2
--- NOTE | 2019-03-10 11:00 | CASEMGMT ---
Per RN patient has decided to go to [facility] at discharge. Amie GALVAN MSW
--- NOTE | 2019-03-10 11:32 | PCM.TXEXTCAR ---
- Diet 03/01/19 23:18 Diet: Cardiac/Low Cholesterol Food consistency:: Regular Liquid Consistency:: Regular/Thin - Routine Orders/Code Status O2 Liters per Minute: 3-5. Go up to 6L with ambulation. O2 Frequency: Continuous Keep PO Greater than or Equal to (%): 90 Code Status: Full Code - Suggestions for Active Care Change Position every (hours): 3 Hours to sit in a chair: 2 Times a day to sit in chair: 3 - Therapies Weight Bearing: Weight bearing as tolerated Physical Therapy: Eval and Treat Occupational Therapy: Eval and Treat - Allergies/Procedures Done in Hospital Allergies/Adverse Reactions: Allergies acetaminophen [From Vicodin] Allergy (Verified 01/31/19 20:26) Hives hydrocodone bitartrate [From Vicodin] Allergy (Verified 01/31/19 20:26) Hives Penicillins Allergy (Verified 01/31/19 20:26) Anaphylaxis - Type of Care/Length of Stay Estimated LOS: Convalescent Care Less Than 30 days Type of Care Needed: Skilled Rehab Potential: Good Prognosis: Good - Additional Orders/Day of Discharge H&P will serve as current which was dated: 03/01/19 Day of Discharge: 03/10/19 - Dietary and Speech Recommendations Dietitian Recommendations/Changes: Rec continue Cardiac/Low Cholesterol diet. - Follow Up Care Primary Care Physician: Carlos Ross Chi, MD [Primary Care Provider] - Please follow up with your Primary Care Physician in: 1 week. Please Follow Up With: Carlos Ross Chi, MD Please Follow Up With: Sarthak Yeboah MD When: 4 weeks. Please Follow Up With: Umer Mccracken MD When: 2 weeks.
--- NOTE | 2019-03-10 11:52 | CASEMGMT ---
Addendum entered by Amie Coronel 03/10/19 11:55: Patient is actually getting picked up at 2p not 230. Amie GALVAN TILE DITCHER Original Note: Faxed orders to [facility]. Completed convalescent on HENS. KAITLIN called [facility] and arranged for patient to get picked up at 230 pm via cot. KAITLIN notified RN, administrative secretary, patient, her son, and left message for Caryn at [facility]. Plan: d/c to [facility] under skilled level of care on a convalescent stay. [facility] transported her via cot. Amie GALVAN TILE DITCHER
--- NOTE | 2019-03-10 11:55 | CASEMGMT ---
SW called Palliative Care and let them know that patient is being discharged to [facility] today. KAITLIN did also talk with patient's family letting them know about Palliative Care referral. Amie GALVAN MSW
--- NOTE | 2019-03-10 11:56 | PCM.DC.SUM ---
Discharge Date and Diagnosis Date of Admission: 03/01/19 Date of Discharge: 03/10/19 - Primary Discharge Diagnosis Active and Suspected Problems (Last Updated 03/07/19 @ 11:32 by Antoine Arzola MD) #1 acute on chronic hypoxic and hypercapnic respiratory failure. #2 acute COPD exacerbation. #3 influenza a/respiratory syncytial virus type A. #4 acute non-ST relation [place]. #5 recent history of hepatitis A. 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 COPD. Electronically Signed: Memo Hammond, at 21:27 EST Tel , Service support , Chest X-Ray 03/07/19 08:04 IMPRESSION: Hyperinflation. Stable increased markings at the lung bases suggestive of scarring with blunting of both costophrenic angles. Electronically Signed: Khurram Recio, at 13:15 EST , Service support , Dr. Mccracken/Dr. Wallace, pulmonology. Dr. Yeboah, cardiology. Operations: None Procedures: 2-D Echocardiogram, EKG Summary of Care Provided: Patient seen and examined on the day of discharge and appeared to be stable to be discharged to residential facility. She reported continued slow improvement of her symptoms. Overnight, she did not did not need the BiPAP and she remained on 4 L of oxygen. This morning after she woke up and walked to the bathroom, oxygen increased to 5 L. She was ambulated and she required 6 L of oxygen upon ambulation. Her other vital signs were stable upon ambulation. This is a 58 years old female patient presented to the emergency room because of worsening shortness of breath with cough, admitted for acute on chronic hypoxic and hypercapnic respiratory failure secondary to acute COPD exacerbation and also found to have acute non-ST relation [place]. #1 acute on chronic hypoxic and hypercapnic respiratory failure: Attributed to COPD exacerbation which is triggered by influenza A and RSV type I. She was treated with IV steroids, antibiotics, bronchodilators and BiPAP. With treatment, her symptoms improved very slowly. She was able to come off BiPAP and she maintained her pulse ox on oxygen by nasal cannula. She required up to 6 L of oxygen with ambulation. At home and at baseline, she has been on 3 L. #2 acute COPD exacerbation: Triggered by influenza A and RSV type A. treated with IV steroids, doxycycline and bronchodilators. Sputum culture revealed mixed normal respiratory ronda. Blood culture showed no growth in 5 days. Patient discharged to SNF on tapering course of prednisone, completed course of doxycycline, discharged on DuoNeb nebulizer every 6 hours along with albuterol PRN. #3 non-ST relation [place]: Treated with aspirin, losartan, Coreg and therapeutic Lovenox twice daily, Coreg. 2D echocardiogram revealed ejection fraction 55%, findings consistent with Takotsubo cardiomyopathy. There was no strong evidence of acute CHF. Patient remained on Lasix. Cardiology consulted and recommended medical treatment at this time. Plan to follow-up with cardiology in 4 weeks and patient will need follow-up 2D echocardiogram. #4 recent history of hepatitis A: Liver transaminases and alkaline phosphatase been trending down and they came down to normal. Bilirubin is normal. Patient denied any abdominal pain during this hospital stay. #5 chronic systolic CHF/status post ICD and pacemaker placement: 2D echocardiogram reviewed as above. Lasix was increased from 20 mg p.o. daily to 40 mg p.o. daily. Continued on Lasix, losartan, Aldactone and Coreg. #6 hypertension: Blood pressure remained stable, continued on Coreg, Lasix, losartan and Aldactone. #7 hypothyroidism: Continued on levothyroxine. Patient discharged to residential facility in a stable condition, discharged on oxygen at 3 to 4 L at rest, can go up to 6 L with ambulation, goal pulse oximeter is around 90%, discharged on tapering course of prednisone for total of 20 days, no antibiotic given upon discharge, discharged on Lasix 40 mg p.o. daily, DuoNeb nebulizer every 6 hours for 10 days, continued on her other previous home medications without any changes, plan is to follow-up with pulmonology in 2 weeks, follow-up with cardiology in 4 weeks and recommended follow-up with PCP in 1 week. This note was generated with [employer] dictation software. It may contain incorrect words, spelling, and punctuation that were not noted in checking the note before signing. - Physical Exam Vitals/I&O's: Vital Signs Temp Pulse Resp BP Pulse Ox 97.8 F 81 20 H 110/65 92 03/10/19 10:50 03/10/19 10:50 03/10/19 10:50 03/10/19 10:50 03/10/19 11:22 Oxygen Flow Rate (L/min) [ 6 AMBULATION with Oxygen] Oxygen Flow Rate (L/min) 5 Oxygen Delivery Method Nasal Cannula Weight: 147 lb 4.301 oz Body Mass Index (BMI) 29.3 Intake and Output for Last 24 Hours 03/08/19 03/09/19 03/10/19 23:59 23:59 23:59 Intake Total 720 / 720 500 / 740 360 / 360 Output Total 200 / 200 Balance 720 / 720 500 / 540 160 / 160 General: Alert, Oriented x3, Cooperative, - - Minimally short of breath. HEENT: Atraumatic, PERRLA, EOMI, Normocephalic Oral: Moist Mucosa, No Gingival or Mucosal Lesions/ Ulcerations Neck: Supple, No JVD, Negative Carotid Bruits, Trachea Midline, Thyroid Normal Size and Texture Lungs: Clear to auscultation, No rhonchi, No wheeze, No rales, Diminished, - - Decreased breath sounds bilateral, otherwise clear. Cardiovascular: Regular rate, Regular Rhythm, Normal S1, Normal S2, PMI Normal Abdomen: Bowel Sounds Present, Soft, Non Tender, Non-Distended, No Hepato-splenomegaly Extremities: No clubbing, No cyanosis, No edema Skin: No rashes, No breakdown Lymphatic: No Cervical, Supraclavicular, or Inguinal Adenopathy Neurological: Cranial nerves II-XII grossly intact, Neuro grossly intact Psych/Mental Status: Normal Affect, Appropriate Microbiology Past 72 Hours 03/01/19 20:50 Blood Culture (Wb) #2 - Anticubital Left Blood Culture - Final No growth in 5 days. 03/01/19 20:40 Blood Culture (Wb) - Right Hand Blood Culture - Final No growth in 5 days. Current Medications Acetaminophen (Tylenol) 650 mg PO Q4H PRN PRN PRN Reason: Pain Score 1-10/Temp > 100.7 F Last Admin: 03/10/19 09:13 Dose: 650 mg Documented by: Albuterol Sulfate (Ventolin Aerosols) 2.5 mg INHALATION Q2H PRN PRN PRN Reason: SOB/Wheezing Last Admin: 03/06/19 01:29 Dose: 2.5 mg Documented by: Albuterol/Ipratropium (Duoneb) 3 ml INHALATION Q4HWA.RT [facility] Last Admin: 03/10/19 11:24 Dose: Not Given Documented by: Aspirin (Aspirin, Baby) 81 mg PO DAILY@0800 [facility] Last Admin: 03/10/19 09:11 Dose: 81 mg Documented by: Carvedilol (Coreg) 25 mg PO BID [facility] Last Admin: 03/09/19 20:23 Dose: 25 mg Documented by: Digoxin (Lanoxin) 250 mcg PO DAILY [facility] Last Admin: 03/10/19 09:15 Dose: 250 mcg Documented by: Doxycycline Monohydrate (Doxycycline) 100 mg PO BID [facility] Last Admin: 03/10/19 09:11 Dose: 100 mg Documented by: Enoxaparin Sodium (Lovenox) 40 mg SC DAILY [facility] Last Admin: 03/10/19 09:14 Dose: 40 mg Documented by: Famotidine (Pepcid) 20 mg PO BID [facility] Last Admin: 03/10/19 09:10 Dose: 20 mg Documented by: Furosemide (Lasix) 40 mg PO DAILY [facility] Last Admin: 03/10/19 09:11 Dose: 40 mg Documented by: Glucagon () 1 mg IM .X1 PRN PRN Reason: Hypoglycemia Guaifenesin (Mucinex) 1,200 mg PO BID [facility] Last Admin: 03/10/19 09:12 Dose: 1,200 mg Documented by: Hydralazine HCl (Apresoline Iv) 10 mg IV Q4H PRN PRN PRN Reason: SBP > 160 Levothyroxine Sodium (Synthroid) 25 mcg PO DAILY@0600 [facility] Last Admin: 03/10/19 06:09 Dose: 25 mcg Documented by: Losartan Potassium (Cozaar) 50 mg PO DAILY [facility] Last Admin: 03/09/19 09:08 Dose: 50 mg Documented by: Melatonin (Melatonin) 3 mg PO QHS PRN PRN PRN Reason: INSOMNIA Morphine Sulfate () 2 mg IV Q4H PRN PRN PRN Reason: Pain Score 6-10/10 Last Admin: 03/08/19 22:25 Dose: 2 mg Documented by: Nitroglycerin (Nitrostat) 0.4 mg SUBLINGUAL Q5M PRN PRN Reason: CARDIAC/CHEST PAIN Oxycodone HCl (Oxyir) 5 mg PO Q4H PRN PRN PRN Reason: Pain Score 4-5/10 Last Admin: 03/08/19 17:04 Dose: 5 mg Documented by: Paroxetine HCl (Paxil) 40 mg PO DAILY [facility] Last Admin: 03/10/19 09:11 Dose: 40 mg Documented by: Prednisone () 40 mg PO DAILY@0800 [facility] Psyllium Hydrophilic Mucilloid (Metamucil) 1 packet PO DAILY PRN PRN PRN Reason: Constipation Last Admin: 03/06/19 21:53 Dose: 1 packet Documented by: Senna/Docusate Sodium (Senokot-S, Inessa-Colace) 2 tablet PO BID [facility] Last Admin: 03/10/19 09:18 Dose: Not Given Documented by: Sodium Chloride () 10 - 40 ml IV UD PRN PRN Reason: SALINE FLUSH Last Admin: 03/10/19 09:15 Dose: 20 ml Documented by: Spironolactone (Aldactone) 25 mg PO DAILY [facility] Last Admin: 03/10/19 09:11 Dose: 25 mg Documented by: Tamsulosin HCl (Flomax) 0.4 mg PO QHS [facility] Last Admin: 03/09/19 20:22 Dose: 0.4 mg Documented by: Throat Lozenges (Cepacol Sore Throat Lozenge) 1 lozenge MUCOUS MEM Q2H PRN PRN PRN Reason: Sore Throat/Cough Home Medications: Medications to take at Discharge Losartan Potassium [Cozaar] 50 mg PO DAILY 04/16/15 Spironolactone [Aldactone] 25 mg PO DAILY 04/16/15 albuterol sulfate 90 mcg/actuation aerosol inhaler 2 puff INHALATION Q4H PRN 06/30/17 atorvastatin 40 mg tablet 40 mg PO QDAY 06/30/17 carvedilol 12.5 mg tablet 12.5 mg PO BID 06/30/17 Levothyroxine [Synthroid] 25 mcg PO DAILY 12/10/17 Paroxetine HCl [Paxil] 40 mg PO DAILY 12/10/17 Tamsulosin HCl [Flomax] 0.4 mg PO QHS 12/10/17 Budesonide/Formoterol 160/4.5 [Symbicort 160/4.5 Mcg Inhaler (SP)] 2 puff INHALATION BID 03/01/19 Digoxin [Lanoxin] 250 mcg PO DAILY 03/01/19 Albuterol Aerosols [Ventolin Aerosols] 2.5 mg INHALATION Q4H PRN PRN #1 03/10/19 Aspirin [Aspirin, Baby] 81 mg PO DAILY@0800 #90 tab.chew 03/10/19 Furosemide [Lasix] 40 mg PO DAILY #90 tab 03/10/19 Home Oxygen 3 lpm INHALATION CONT #0 03/10/19 Ipratropium/Albuterol Sulfate [Duoneb] 3 ml INHALATION [id number] #40 ampul.neb 03/10/19 Prednisone 10 mg PO DAILY #75 tab 03/10/19 Following Prescrptions Were Given to Patient: Aspirin [Aspirin, Baby] 81 mg PO DAILY@0800 #90 tab.chew Prescription Printed Ipratropium/Albuterol Sulfate [Duoneb] 3 ml INHALATION [id number] #40 ampul.neb Prescription Printed Furosemide [Lasix] 40 mg PO DAILY #90 tab Prescription Printed Prednisone 10 mg PO DAILY #75 tab Prescription Printed Primary Care Physician: Carlos Ross Chi, MD [Primary Care Provider] - Please follow up with your Primary Care Physician in: 1 week. Please Follow Up With: Carlos Ross Chi, MD Please Follow Up With: Sarthak Yeboah MD When: 4 weeks. Please Follow Up With: Umer Mccracken MD When: 2 weeks. Disposition: Correction facility Minutes spent on discharge:: 33 Patient Condition:: Stable Medical Necessity - Tobacco Use Smoking Status: Former smoker Tobacco Use: Non-smoker Meaningful Use Info Meaningful Use Diagnoses (Choose all that apply): None applicable Code Visit Inpatient E&M: 76716 Disch Hosp
--- NOTE | 2019-03-10 12:03 | CASEMGMT ---
SW also called [facility] notifying them of patient's discharge. Patient's vocational case manager with [employer] is Mary Brady. Amie GALVAN MSW
--- NOTE | 2019-03-10 13:00 | NURSING ---
report called to Laura Newman at [facility]
== END 2019-03-10 14:05 | disposition skilled nursing facility (03) | DRG 189 ==
LOC: ED 22:11 → PCU 22:19
PROVIDERS: Internal Medicine; Internal Medicine Cardiovascular Disease; Admitting Provider Family Medicine; Emergency Provider Emergency Medicine; Family Provider Family Medicine Geriatric Medicine; PCP Family Medicine Geriatric Medicine; Referring Provider Family Medicine; Visit Provider Hospitalist
DX: J96.21 Acute and chronic respiratory failure with hypoxia (principal); I21.4 Non-ST elevation (NSTEMI) myocardial infarction; J44.1 Chronic obstructive pulmonary disease with (acute) exacerbation; I50.22 Chronic systolic (congestive) heart failure; I42.0 Dilated cardiomyopathy; B15.9 Hepatitis A without hepatic coma; I51.81 Takotsubo syndrome; I47.1 Supraventricular tachycardia; J96.22 Acute and chronic respiratory failure with hypercapnia; J10.1 Influenza due to other identified influenza virus with other respiratory manifestations; B97.4 Respiratory syncytial virus as the cause of diseases classified elsewhere; I25.10 Atherosclerotic heart disease of native coronary artery without angina pectoris; E78.5 Hyperlipidemia, unspecified; I34.0 Nonrheumatic mitral (valve) insufficiency; E03.9 Hypothyroidism, unspecified; F17.210 Nicotine dependence, cigarettes, uncomplicated; E66.9 Obesity, unspecified; I11.0 Hypertensive heart disease with heart failure; Z95.810 Presence of automatic (implantable) cardiac defibrillator; Z99.81 Dependence on supplemental oxygen; Z68.29 Body mass index [BMI] 29.0-29.9, adult
CPT/HCPCS: 36415; 36600; 71045; 71046; 80048; 80053; 80061; 80076; 80162; 82248; 82803; 83036; 83605; 83735; 84100; 84484; 85025; 87040; 87070; 87205; 87633; 87804; 93005; 93306; 94002; 94003; 94640; 94660; 94667; 94668; 97110; 97162; 97166; 97530; 97535; 99251; 99285; J7030; J7050; Q9957; A4216; C8929; G0463; J1940

== ENCOUNTER → 2019-03-31 15:43 | Outpatient (CLI) | payer MEDICARE, MEDICAID, SELFPAY ==
[2019-03-22 13:55] VITALS: BMI 29.3
[2019-03-31 17:31] LABS: Absolute Lymphocyte Count 3.56 X10^3/uL (0.83-4.51); Absolute Neutrophil Count 4.6 X10^3/uL (2.0-7.7); Basophil# 0.05 X10^3/uL; Basophil% 0.5 % (0-1); Eosinophil# 0.24 X10^3/uL; Eosinophils% 2.6 % (0-5); Hematocrit 40.4 % (37-47); Hemoglobin 12.4 g/dL (12.0-15.0); Lymphocyte # 3.56 X10^3/ul (4.0); Mean Corp Hgb Conc 30.7 g/dL (32-36); Mean Corpuscular Hgb 28.2 pg (27.0-32.0); Mean Corpuscular Volume 91.8 fL (81-99); Mean Platelet Vol. 8.6 fl (6.2-12.0); Monocyte# 0.79 X10^3/uL; Monocyte% 8.4 % (0-10); NRBC Flagged by Analyzer 0 % (0-5); Neutrophil # 4.61 X10^3/uL (2.7-7.7); Neutrophil % 49.2 % (47-70); Platelet Count 273 K/mm3 (150-450); RBC Distribution Width CV 14.5 % (11.6-14.6); RBC Distribution Width SD 49.1 fl (35.1-43.9); White Blood Count 9.4 K/mm3 (4.4-11.0)
[2019-03-31 18:03] LABS: ALB/GLOB Ratio 0.8 RATIO (0.9-2.4); AST(SGOT) 26 U/L (15-37); Alanine Aminotransfer ALT/SGPT 48 U/L (13-56); Alkaline Phosphatase 95 U/L (45-117); Anion Gap 4 (5-15); BUN 16 mg/dL (7-18); Chloride 96 mmol/L (98-107); Creatinine, Serum 0.64 mg/dL (0.55-1.02); EST Glomerular Filtration Rate 100 mL/min (>60); Est Glom Filt Rate - Afr Amer 121 mL/min (>60); Glucose 143 mg/dL (74-106); Potassium 4.1 mmol/L (3.5-5.1); Sodium Level 134 mmol/L (136-145); Thyroid Stim Hormone (TSH) 3.46 uIU/mL (0.358-3.74)
== END ==
PROVIDERS: PCP Family Medicine Geriatric Medicine; Visit Provider Family Medicine Geriatric Medicine
DX: I10 Essential (primary) hypertension (principal)
CPT/HCPCS: 36415; 80053; 84443; 85025

== ENCOUNTER 2019-04-23 21:29 | Inpatient (IN) | payer MEDICARE, MEDICAID, SELFPAY ==
[2019-04-11 09:31] VITALS: BMI 29.5
[2019-04-23] VITALS (7 sets, daily range): BP systolic 100–178; BP diastolic 72–84; PULSE 116–119; RESP 16–28; TEMP 36.7–36.9; O2SAT 86–94; BMI 29.6
--- NOTE | 2019-04-23 21:56 | EKG12_ITS ---
Test Reason : SOB Blood Pressure : / mmHG Vent. Rate : 116 BPM Atrial Rate : 116 BPM P-R Int : 126 ms QRS Dur : 148 ms QT Int : 374 ms P-R-T Axes : 000 178 -79 degrees QTc Int : 519 ms Atrial-sensed ventricular-paced rhythm Biventricular pacemaker detected Abnormal ECG Confirmed by DOMINIK SPENCER, HANG ([id number]), brands editor DAVID PUTNAM ([id number]) on 04/25/2019 3:18:09 PM Referred By: Nicanor Chou Confirmed By:HANG LEHMAN MD
[2019-04-23] MEDS: Ipratropium/Albuterol Sulfate 3 ML AMPUL.NEB INHALATION (22:06)
[2019-04-23] MEDS: MethylPREDNISolone 125 MG/2 ML Vial 60 MG IV (22:11)
[2019-04-23 22:13] LABS: Absolute Lymphocyte Count 2.35 X10^3/uL (0.83-4.51); Absolute Neutrophil Count 7.6 X10^3/uL (2.0-7.7); Basophil# 0.04 X10^3/uL; Basophil% 0.4 % (0-1); Eosinophil# 0.03 X10^3/uL; Eosinophils% 0.3 % (0-5); Hematocrit 41.9 % (37-47); Hemoglobin 12.9 g/dL (12.0-15.0); Lymphocyte # 2.35 X10^3/ul (4.0); Lymphocyte % 21.2 % (19-41); Mean Corp Hgb Conc 30.8 g/dL (32-36); Mean Corpuscular Volume 91.1 fL (81-99); Mean Platelet Vol. 8.2 fl (6.2-12.0); Monocyte# 0.97 X10^3/uL; Monocyte% 8.8 % (0-10); NRBC Flagged by Analyzer 0 % (0-5); Neutrophil # 7.62 X10^3/uL (2.7-7.7); Neutrophil % 68.8 % (47-70); Platelet Count 272 K/mm3 (150-450); RBC Distribution Width CV 13.2 % (11.6-14.6); RBC Distribution Width SD 44.4 fl (35.1-43.9); White Blood Count 11.1 K/mm3 (4.4-11.0)
--- NOTE | 2019-04-23 22:21 | RAD_ITS ---
HISTORY: FALL TODAY, PAIN COMPARISON: CT scan of the abdomen and pelvis from January 31, 2019 FINDINGS: # of images incl. paperwork: 2 XR Spine Lumbar 2 or 3 Views: Hyperlordosis is similar. Severe calcific plaque within the abdominal aorta into the common iliac arteries is similar. Facet arthritis at the L4-L5 and L5-S1 levels is similar. Cardiac pacer leads remain. Anterior subluxation of L4 on L5 by a few millimeters remains Lumbar vertebral bodies are normal in height. Lumbar disc spaces are well maintained. No acute lumbar spine fracture or subluxation. RAD/Lumbar Spine 2 or 3 Views IMPRESSION: No acute lumbar spine fracture or subluxation. at 0551 Reported and signed by: Jaswant Castañeda MD Electronically Signed: Jaswant Castañeda MD at 23:24 EST Tel , Service support ,
--- NOTE | 2019-04-23 22:21 | RAD_ITS ---
HISTORY: INCREASED SOB AND WEAKNESS STARTING YESTERDAYHX OF HTN, PACER AND ICD EXAM: XR Chest 2 Views COMPARISON: March 07, 2019 FINDINGS: LINES/DEVICES: Left chest wall, left subclavian access triple lead cardiac pacer persists LUNGS: There are chronic interstitial changes. No pneumothorax. Bilateral pleural effusions are suspected MEDIASTINUM AND CARDIOVASCULAR STRUCTURES: Cardiac silhouette not enlarged. Central airways and mediastinal contour are unremarkable. Athersclerotic plaque within the aortic arch. BONES AND SOFT TISSUES: Thoracic spondylosis. RAD/Chest PA and Lateral IMPRESSION: Chronic interestitial changes. No radiographic evidence of acute cardiopulmonary disease. at 2321 Reported and signed by: Jaswant Castañeda MD Electronically Signed: Jaswant Castañeda MD at 23:20 EST Tel , Service support ,
[2019-04-23 22:25] LABS: Lactic Acid 1.3 mmol/L (0.4-1.9)
[2019-04-23 22:27] LABS: Anion Gap -2 (5-15); BUN 9 mg/dL (7-18); BUN/Creat Ratio 18.5 RATIO (10-20); Calcium,Total 9.4 mg/dL (8.5-10.1); Chloride 94 mmol/L (98-107); Creatinine, Serum 0.49 mg/dL (0.55-1.02); EST Glomerular Filtration Rate 138 mL/min (>60); Est Glom Filt Rate - Afr Amer 166 mL/min (>60); Glucose 139 mg/dL (74-106); Potassium 4.2 mmol/L (3.5-5.1); Sodium Level 136 mmol/L (136-145)
--- NOTE | 2019-04-23 23:56 | ED.DCSUM_ITS ---
- ER Visit Summary Date of Service: 04/23/19 Chief Complaint: Shortness of breath History of Present Illness: The patient is a 58 F who presents with shortness of breath that is been getting worse over the past 2 days. Patient states she feels like she cannot catch her breath and has a hard time breathing. Patient states that tonight she fell and landed on her back. Patient complains of low back pain. Patient states nothing makes it better or worse. Patient admits to subjective fevers. Patient denies any cough. Patient denies any chest pain. Patient denies any nausea or vomiting. Patient does have a history of COPD and is on 3 L nasal cannula at home. Physical Examination: Vital signs are stable except for tachycardia of 117 and a tachypnea of 28. Patient is afebrile. Oral mucosa is pink and moist. Neck is supple. Trachea is midline. There is no JVD. Heart was regular and tachycardic. Lungs were diminished bilaterally. There is adequate respiratory effort. Abdomen is soft. Bowel sounds are normal. There is no tenderness. Extremities are intact. There is no calf tenderness or edema. Cranial nerves II through XII are intact. There are no focal motor or sensory deficits noted. Test Results: EKG showed a paced rhythm with a rate of 116. There are no acute ST or T wave changes. CBC shows a slight leukocytosis of 11.1. Basic metabolic profile was essentially within normal limits. Troponin was normal. Lactate was normal. PA and lateral chest x-ray was obtained. There are chronic changes but no acute cardiopulmonary process. X-rays of the lumbar spine were obtained. There is no acute fracture. Emergency Department Course and Treatment: Patient was given a dose of Solu- Medrol here. Patient was given a DuoNeb aerosol initially. Patient did not feel any better after this. Patient was given a repeat albuterol aerosol. Case was discussed with the hospitalist. He will admit the patient to his service. Patient understood and was agreeable with the plan. All questions were answered. Disposition: Admit to hospital Impression: 1. Acute exacerbation of COPD This note was generated with [employer] software. It may contain incorrect words, spelling, and punctuation that were not noted in review of the chart prior to signing ED Disposition - Plan for ED Patient: Disposition: Acute Care Hospital [facility] Diagnosis: COPD exacerbation Referrals: Carlos Ross Chi, MD [Primary Care Provider] -
--- NOTE | 2019-04-23 23:57 | PCM.HP.STD ---
Problem List (1) COPD (chronic obstructive pulmonary disease) Status: Chronic (2) COPD exacerbation Status: Chronic (3) Essential hypertension Status: Chronic (4) Elevated LFTs Status: Chronic (5) Hepatitis A Status: Chronic Qualifiers: Hepatic coma status: without hepatic coma Qualified Code(s): B15.9 - Hepatitis A without hepatic coma (6) Acute and chronic respiratory failure with hypoxia Status: Acute (7) COPD exacerbation Status: Acute (8) RBBB (right bundle branch block) Status: Chronic (9) Hyperlipidemia Status: Chronic Qualifiers: (10) Cardiomyopathy, dilated Status: Chronic (11) Nonrheumatic mitral valve regurgitation Status: Chronic (12) Chronic systolic congestive heart failure Status: Chronic (13) Biventricular automatic implantable cardioverter defibrillator in situ Status: Chronic Comment: RV lead implantation complicated by tamponade -pericardiocentesis done 01/05/15 (14) Atherosclerotic heart disease of [place] coronary artery without angina pectoris Status: Chronic Qualifiers: [place] vs. transplanted heart: unspecified whether [place] or transplanted heart Qualified Code(s): I25.10 - Atherosclerotic heart disease of [place] coronary artery without angina pectoris (15) Ventricular tachycardia Status: Chronic History of Present Illness Date of Admission: 04/23/19 Chief Complaint: SOB The patient is a 58 year old F with a significant history of former tobacco abuse;congestive heart failure status post AICD/pacemaker; depression and anxiety; COPD on home 3 L of oxygen; and hyperlipidemia who presented to emergency department with 2-day history of progressively worsening shortness of breath. She denies cough or wheezing. Also, she fell and landed on her back. She now has lower back pain secondary to fall. She described her lower back pain as dull and aching with severity of 9 out of 10. Of note patient was started on home prednisone about a week ago because of right hip pain. Past Medical History Past Medical History (Chronic Problems): Chronic Problems (Last Reviewed 04/24/19 @ 01:[address] Nicanor Chou MD) COPD (chronic obstructive pulmonary disease) (Chronic) COPD exacerbation (Chronic) Essential hypertension (Chronic) Elevated LFTs (Chronic) Hepatitis A (Chronic) RBBB (right bundle branch block) (Chronic) Hyperlipidemia (Chronic) Cardiomyopathy, dilated (Chronic) Nonrheumatic mitral valve regurgitation (Chronic) Chronic systolic congestive heart failure (Chronic) Biventricular automatic implantable cardioverter defibrillator in situ (Chronic ~01/05/15) RV lead implantation complicated by tamponade -pericardiocentesis done 01/05/15 Atherosclerotic heart disease of [place] coronary artery without angina pectoris (Chronic) Ventricular tachycardia (Chronic) Medical History: Medical History (Last Reviewed 04/24/19 @ 01:[address] Nicanor Chou MD) Obesity (BMI 30.0-34.9) (Inactive) E66.9 RBBB (right bundle branch block) (Chronic) I45.10 Hyperlipidemia (Chronic) E78.5 Cardiomyopathy, dilated (Chronic) I42.0 Nonrheumatic mitral valve regurgitation (Chronic) I34.0 Chronic systolic congestive heart failure (Chronic) I50.22 Biventricular automatic implantable cardioverter defibrillator in situ (Chronic) Onset Date: ~01/05/15 Z95.810 RV lead implantation complicated by tamponade -pericardiocentesis done 01/05/15 Atherosclerotic heart disease of [place] coronary artery without angina pectoris (Chronic) I25.10 Ventricular tachycardia (Chronic) I47.2 Anxiety F41.9 COPD (chronic obstructive pulmonary disease) J44.9 Depression F32.9 Cardiac tamponade (Inactive) I31.4 Allergies acetaminophen [From Vicodin] Allergy (Verified 04/23/19 21:36) Hives hydrocodone bitartrate [From Vicodin] Allergy (Verified 04/23/19 21:36) Hives Penicillins Allergy (Verified 04/23/19 21:36) Anaphylaxis Home Medications: Ambulatory Orders Medication Instructions Recorded Losartan Potassium [Cozaar] 50 mg PO DAILY 04/16/15 Spironolactone [Aldactone] 25 mg PO DAILY 04/16/15 albuterol sulfate 90 mcg/actuation 2 puff INHALATION Q4H PRN 06/30/17 aerosol inhaler atorvastatin 40 mg tablet 40 mg PO QDAY 06/30/17 carvedilol 12.5 mg tablet 12.5 mg PO BID 06/30/17 Levothyroxine [Synthroid] 25 mcg PO DAILY 12/10/17 Paroxetine HCl [Paxil] 40 mg PO DAILY 12/10/17 Tamsulosin HCl [Flomax] 0.4 mg PO QHS 12/10/17 Budesonide/Formoterol 160/4.5 2 puff INHALATION BID 03/01/19 [Symbicort 160/4.5 Mcg Inhaler (SP)] Digoxin [Lanoxin] 250 mcg PO DAILY 03/01/19 Albuterol Aerosols [Ventolin 2.5 mg INHALATION Q4H PRN PRN #1 03/10/19 Aerosols] Aspirin [Aspirin, Baby] 81 mg PO DAILY@0800 #90 tab.chew 03/10/19 Furosemide [Lasix] 40 mg PO DAILY #90 tab 03/10/19 Home Oxygen 3 lpm INHALATION CONT #0 03/10/19 Ipratropium/Albuterol Sulfate 3 ml INHALATION [id number] #40 03/10/19 [Duoneb] ampul.neb Prednisone 10 mg PO DAILY #75 tab 03/10/19 Surgical History: Surgical History (Last Reviewed 04/24/19 @ 01:[address] Nicanor Chou MD) History of tubal ligation Z98.51 Status post pericardiocentesis Z98.890 Surgical History: - - x 2, hysterectomy, AICD/pacemaker placement. 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 Nicanor Chou MD) Father CAD (coronary artery disease) Hypertension Mother CAD (coronary artery disease) Hypertension Diabetes Brother CAD (coronary artery disease) History Items: Diabetes, Heart Disease, Hypertension Paternal Family History: Family History (Last Reviewed 04/24/19 @ 01:[address] Nicanor Chou MD) Father CAD (coronary artery disease) Hypertension Mother CAD (coronary artery disease) Hypertension Diabetes Brother CAD (coronary artery disease) History Items: Heart Disease, Hypertension Review of Systems Constitutional: Denies: Chills, Fever, Weight Change HEENT: Denies: Head Aches, Sinus Congestion, Sinus Drainage Cardiovascular: Denies: Chest Pain, Palpitations Respiratory: Reports: Shortness of Breath. Denies: Cough, Shortness of breath at rest, Sputum production Gastrointestinal: Denies: Abdominal Pain, Nausea, Vomiting Genitourinary: Denies: Dysuria Musculoskeletal: Reports: Back Pain. Denies: Joint Pain, Joint Tenderness Skin: Denies: Rash, Wounds Neurological: Denies: Numbness, Tingling, Focal weakness Psychiatric: Denies: Anxiety, Depression, Homicidal Ideations, Suicidal Ideations Hematologic/ Lymphatic: Denies: Easy Bruising, Easy Bleeding VTE Information - Inpt Only VTE Present on Admission: No VTE Mechan Device Prophylaxis: None VTE Pharm Prophylaxis ordered?: Yes Patient Problems: Active and Suspected Problems (Last Reviewed 04/24/19 @ 01:[address] Nicanor Chou MD) COPD exacerbation (Acute) - Physical Exam Vitals/I&O's: Vital Signs Temp Pulse Resp BP Pulse Ox 98.3 F 118 H 17 100/72 94 04/23/19 23:11 04/23/19 23:11 04/23/19 23:11 04/23/19 23:11 04/23/19 23:11 Oxygen Flow Rate (L/min) 4 Oxygen Delivery Method Nasal Cannula Weight: 68.8 kg Body Mass Index (BMI) 29.6 General: Alert, Oriented x3, Cooperative HEENT: Atraumatic, PERRLA, EOMI, Normocephalic Neck: Supple, No JVD, Negative Carotid Bruits Lungs: Diminished, Tachypneic, - - Positional dyspnea; pursed lip breathing. Cardiovascular: Normal S1, Normal S2, No murmurs, Tachycardic Abdomen: Bowel Sounds Present, Soft, Non Tender Extremities: No edema, Capillary Refill Less than 3 Seconds Skin: No rashes, No breakdown Musculoskeletal: No Muscle Wasting Neurological: Cranial nerves II-XII grossly intact Psych/Mental Status: Anxious Microbiology Past 72 Hours 04/23/19 22:00 Mucosa - Nose Influenza Types A,B Direct FA (ANGELES) - Final Laboratory Results 04/23/19 21:40: WBC 11.1 H, RBC 4.60, Hgb 12.9, Hct 41.9, MCV 91.1, MCH 28.0, MCHC 30.8 L, RDW Std Deviation 44.4 H, RDW Coeff of Siobhan 13.2, Plt Count 272, MPV 8.2, Immature Gran % (Auto) 0.500, Neut % (Auto) 68.8, Lymph % (Auto) 21.2, Smith % (Auto) 8.8, Eos % (Auto) 0.3, Baso % (Auto) 0.4, Absolute Neuts (auto) 7.6, Absolute Lymphs (auto) 2.35, Nucleated RBC % 0 04/23/19 21:40: Sodium 136, Potassium 4.2, Chloride 94 L, Carbon Dioxide 44.0 H, Anion Gap -2 L, BUN 9, Creatinine 0.49 L, Estim Creat Clear Calc 87.70, Est GFR (MDRD) Af Amer 166, Est GFR (MDRD) Non-Af 138, BUN/Creatinine Ratio 18.5, Glucose 139 H, Calcium 9.4, Troponin I < 0.015 04/23/19 21:40: Lactic Acid 1.3 Current Medications Sodium Chloride () 500 mls @ 999 mls/hr IV .Q31M ONE Last Admin: 04/23/19 22:11 Dose: 999 mls/hr Documented by: Assessment/Plan All Active Problems (Last Reviewed 04/24/19 @ 01:[address] Nicanor Chou MD) Acute and chronic respiratory failure with hypoxia (Acute) COPD exacerbation (Acute) The patient is a 58 year old F with a significant history of former tobacco abuse ;congestive heart failure status post AICD/pacemaker; depression and anxiety; COPD on home 3 L of oxygen; and hyperlipidemia who presented to emergency department with 2-day history of progressively worsening shortness of breath consistent with acute excerbation of COPD and with fall. Acute exacerbation of COPD Chest x-ray showed hyperinflation with flattening of diaphragm consistent with COPD. No acute cardiopulmonary process. EKG paced rhythm with QTC of 519. Scheduled DuoNeb Albuterol as needed Solu-Medrol at emergency department. Solu-Medrol continued. Hold home ICS?LABA Doxycycline ordered. Oxygen to keep saturation above 92% Noted to have mild leukocytosis. Mild leukocytosis could be secondary to COPD Secondary to prednisone use. Monitor CBC QTC prolongation Patient with paced rhythm with a QTC of 519. QTC prolongation likely secondary to pacemaker. However avoid QTC prolongation drugs. Fall Denies any sequela of lightheadedness or vertigo. Denies hitting leg/feet with anything triggered the fall. Will check vitamin D vitamin B12 level. PT and OT to work with patient. Placed on scheduled Tylenol. Congestive heart failure Echo 03/01/2019 showed segmental dysfunction with preserved ejection fraction. Estimated left ventricular ejection fraction is 55%. Diastolic function was indeterminate. Continue home digoxin and Lasix. Continue home losartan. Continue spironolactone. Continue carvedilol. Pacemaker with ICD in place. Hypothyroidism Synthroid continued Depression/Anxiety Paroxetine continued Right hip pain On home prednisone 10 mg daily. Home prednisone held. Patient started on Solu-Medrol for COPD exacerbation. Urinary retention Flomax continued Constipation Reported that for the last 3 to 4 days her bowels has not moved. will start patient on MiraLAX daily. DVT prophylaxis Subcutaneous lovenox Inpatient E&M: 80377 Init Hosp L3
[2019-04-24] VITALS (14 sets, daily range): BP systolic 100–143; BP diastolic 58–81; PULSE 69–116; RESP 15–22; TEMP 36.7–37.4; O2SAT 92–98; BMI 28.9
[2019-04-24] MEDS: Albuterol 2.5 MG/3 ML VIAL.NEB. INHALATION (00:08)
[2019-04-24] MEDS: Doxycycline 100 MG CAPSULE PO ×3 (01:46→21:10)
[2019-04-24 06:03] LABS: Absolute Lymphocyte Count 1.29 X10^3/uL (0.83-4.51); Absolute Neutrophil Count 9.5 X10^3/uL (2.0-7.7); Basophil# 0.02 X10^3/uL; Basophil% 0.2 % (0-1); Hematocrit 38.5 % (37-47); Hemoglobin 11.7 g/dL (12.0-15.0); Lymphocyte # 1.29 X10^3/ul (4.0); Lymphocyte % 11.8 % (19-41); Mean Corp Hgb Conc 30.4 g/dL (32-36); Mean Corpuscular Hgb 27.4 pg (27.0-32.0); Mean Corpuscular Volume 90.2 fL (81-99); Mean Platelet Vol. 8.7 fl (6.2-12.0); Monocyte# 0.11 X10^3/uL; NRBC Flagged by Analyzer 0 % (0-5); Neutrophil # 9.46 X10^3/uL (2.7-7.7); Neutrophil % 86.6 % (47-70); Platelet Count 277 K/mm3 (150-450); RBC Distribution Width CV 13.3 % (11.6-14.6); Red Blood Count 4.27 M/mm3 (4.2-5.4); White Blood Count 10.9 K/mm3 (4.4-11.0)
[2019-04-24] MEDS: Acetaminophen 500 MG Tablet PO ×3 (06:53→17:24)
[2019-04-24] MEDS: Levothyroxine 25 MCG TABLET PO (06:53)
[2019-04-24 06:58] LABS: Anion Gap 7 (5-15); BUN 10 mg/dL (7-18); BUN/Creat Ratio 26.6 RATIO (10-20); Calcium,Total 8.9 mg/dL (8.5-10.1); Chloride 93 mmol/L (98-107); Creatinine, Serum 0.38 mg/dL (0.55-1.02); EST Glomerular Filtration Rate 185 mL/min (>60); Est Glom Filt Rate - Afr Amer 224 mL/min (>60); Estimated Creatinine Clearance 113.08 ml/min; Glucose 175 mg/dL (74-106); Potassium 3.6 mmol/L (3.5-5.1); Sodium Level 136 mmol/L (136-145)
[2019-04-24] MEDS: Ipratropium/Albuterol Sulfate 3 ML AMPUL.NEB INHALATION ×4 (07:33→18:44)
--- NOTE | 2019-04-24 08:41 | OT ---
SHERLYN SHANNON AROM EXERCISES AND CORKY PT ON IMPORTANCE OF PERFORMING EXERCISES DAILY TO MAINTAIN STRENGTH/ENDURANCE WHILE IN HOSPITAL.
[2019-04-24] MEDS: Carvedilol 12.5 MG Tablet PO ×2 (10:38→21:10)
[2019-04-24] MEDS: Digoxin 250 MCG Tablet PO (10:38)
[2019-04-24] MEDS: Losartan Potassium 50 MG Tablet PO (10:38)
[2019-04-24] MEDS: Spironolactone 25 MG Tablet PO (10:38)
[2019-04-24] MEDS: Furosemide 40 MG Tablet PO (10:38)
[2019-04-24] MEDS: Aspirin 81 MG TAB.CHEW PO (10:38)
[2019-04-24] MEDS: Polyethylene Glycol 3350 17 GM PACKET PO (10:39)
[2019-04-24] MEDS: Paroxetine 20 MG Tablet 40 MG PO (10:39)
[2019-04-24] MEDS: Enoxaparin 40 MG/0.4 ML Syringe SC (10:43)
--- NOTE | 2019-04-24 14:10 | PN_ITS ---
Patient Problems: Active and Suspected Problems (Last Reviewed 04/24/19 @ 01:[address] Nicanor Chou MD) COPD exacerbation (Acute) Reason for Visit: COPD Subjective: Breathing better, but not at baseline. Vitals/I&O's: Vital Signs Temp Pulse Resp BP Pulse Ox 37.2 C 72 18 118/74 92 04/24/19 10:30 04/24/19 11:52 04/24/19 11:52 04/24/19 10:30 04/24/19 10:30 Oxygen Flow Rate (L/min) 3 Oxygen Delivery Method Room Air Weight: 67.2 kg Body Mass Index (BMI) 28.9 Intake and Output for Last 24 Hours 04/22/19 04/23/19 04/25/19 23:59 23:59 00:59 Intake Total 1160 / 1160 Balance 1160 / 1160 General: Oriented x3, No apparent distress HEENT: Atraumatic, Normocephalic Oral: Moist Mucosa, No Gingival or Mucosal Lesions/ Ulcerations Neck: No Nodes, Trachea Midline Lungs: Diminished - minimal air movement. Cardiovascular: Regular rate, Regular Rhythm, Normal S1, Normal S2, No murmurs Abdomen: Bowel Sounds Present, Soft, Non Tender, Non-Distended, No Hepato- splenomegaly Extremities: No edema, No Calf Tenderness Skin: No rashes, No breakdown Musculoskeletal: No Tenderness to Palpation of Joints or Extremities, No Muscle Wasting Psych/Mental Status: Normal Affect, Appropriate Microbiology Past 72 Hours 04/23/19 22:00 Mucosa - Nose Influenza Types A,B Direct FA (ANGELES) - Final Laboratory Results 04/23/19 21:40: WBC 11.1 H, RBC 4.60, Hgb 12.9, Hct 41.9, MCV 91.1, MCH 28.0, MCHC 30.8 L, RDW Std Deviation 44.4 H, RDW Coeff of Siobhan 13.2, Plt Count 272, MPV 8.2, Immature Gran % (Auto) 0.500, Neut % (Auto) 68.8, Lymph % (Auto) 21.2, Darke % (Auto) 8.8, Eos % (Auto) 0.3, Baso % (Auto) 0.4, Absolute Neuts (auto) 7.6, Absolute Lymphs (auto) 2.35, Nucleated RBC % 0 04/23/19 21:40: Sodium 136, Potassium 4.2, Chloride 94 L, Carbon Dioxide 44.0 H, Anion Gap -2 L, BUN 9, Creatinine 0.49 L, Estim Creat Clear Calc 87.70, Est GFR (MDRD) Af Amer 166, Est GFR (MDRD) Non-Af 138, BUN/Creatinine Ratio 18.5, Glucose 139 H, Calcium 9.4, Troponin I < 0.015 04/23/19 21:40: Lactic Acid 1.3 04/24/19 04:56: Vitamin B12 Pending, Vitamin D 25-Hydroxy Pending 04/24/19 04:56: Sodium 136, Potassium 3.6, Chloride 93 L, Carbon Dioxide 36.0 H, Anion Gap 7, BUN 10, Creatinine 0.38 L, Estim Creat Clear Calc 113.08, Est GFR (MDRD) Af Amer 224, Est GFR (MDRD) Non-Af 185, BUN/Creatinine Ratio 26.6 H, Glucose 175 H, Calcium 8.9 04/24/19 04:56: WBC 10.9, RBC 4.27, Hgb 11.7 L, Hct 38.5, MCV 90.2, MCH 27.4, MCHC 30.4 L, RDW Std Deviation 44.0 H, RDW Coeff of Siobhan 13.3, Plt Count 277, MPV 8.7, Immature Gran % (Auto) 0.400, Neut % (Auto) 86.6 H, Lymph % (Auto) 11.8 L, [place]ke % (Auto) 1.0, Eos % (Auto) 0.0, Baso % (Auto) 0.2, Absolute Neuts (auto) 9.5 H, Absolute Lymphs (auto) 1.29, Nucleated RBC % 0 Current Medications Acetaminophen (Tylenol) 500 mg PO Q6 [facility] Last Admin: 04/24/19 12:54 Dose: 500 mg Documented by: Albuterol Sulfate (Ventolin Aerosols) 2.5 mg INHALATION Q2H PRN PRN PRN Reason: SOB/Wheezing Albuterol/Ipratropium (Duoneb) 3 ml INHALATION Q4HWA.RT [facility] Last Admin: 04/24/19 11:29 Dose: 3 ml Documented by: Aspirin (Aspirin, Baby) 81 mg PO DAILY@0800 [facility] Last Admin: 04/24/19 10:38 Dose: 81 mg Documented by: Atorvastatin Calcium (Lipitor) 40 mg PO DAILY@2200 [facility] Carvedilol (Coreg) 12.5 mg PO BID [facility] Last Admin: 04/24/19 10:38 Dose: 12.5 mg Documented by: Digoxin (Lanoxin) 250 mcg PO DAILY [facility] Last Admin: 04/24/19 10:38 Dose: 250 mcg Documented by: Doxycycline Monohydrate (Doxycycline) 100 mg PO BID [facility] Last Admin: 04/24/19 10:38 Dose: 100 mg Documented by: Enoxaparin Sodium (Lovenox) 40 mg SC DAILY [facility] Last Admin: 04/24/19 10:43 Dose: 40 mg Documented by: Furosemide (Lasix) 40 mg PO DAILY [facility] Last Admin: 04/24/19 10:38 Dose: 40 mg Documented by: Glucagon () 1 mg IM .X1 PRN PRN Reason: Hypoglycemia Sodium Chloride () 500 mls @ 999 mls/hr IV .Q31M ONE Last Infusion: 04/24/19 01:11 Dose: Infused Documented by: Dextrose (Dextrose 10%-Water) 250 mls @ 999 mls/hr IV .Q16M PRN; Protocol PRN Reason: HYPOGLYCEMIA Levothyroxine Sodium (Synthroid) 25 mcg PO DAILY@0600 [facility] Last Admin: 04/24/19 06:53 Dose: 25 mcg Documented by: Losartan Potassium (Cozaar) 50 mg PO DAILY [facility] Last Admin: 04/24/19 10:38 Dose: 50 mg Documented by: Melatonin (Melatonin) 3 mg PO QHS PRN PRN PRN Reason: INSOMNIA Methylprednisolone (Solu-Medrol) 40 mg IV Q8 [facility] Last Admin: 04/24/19 06:53 Dose: 40 mg Documented by: Paroxetine HCl (Paxil) 40 mg PO DAILY [facility] Last Admin: 04/24/19 10:39 Dose: 40 mg Documented by: Polyethylene Glycol (Miralax) 17 gm PO DAILY [facility] Last Admin: 04/24/19 10:39 Dose: 17 gm Documented by: Sodium Chloride () 10 - 40 ml IV UD PRN PRN Reason: SALINE FLUSH Spironolactone (Aldactone) 25 mg PO DAILY [facility] Last Admin: 04/24/19 10:38 Dose: 25 mg Documented by: Tamsulosin HCl (Flomax) 0.4 mg PO QHS [facility] Vital Signs/Narrative: Vital Signs Temp Pulse Resp BP Pulse Ox 04/24/19 11:52 72 18 04/24/19 10:30 37.2 C 91 18 118/74 92 Medical Necessity - Tobacco Use Smoking Status: Former smoker Assessment/Plan All Active Problems (Last Reviewed 04/24/19 @ 01:[address] Nicanor Chou MD) Acute and chronic respiratory failure with hypoxia (Acute) COPD exacerbation (Acute) 1. acute COPD exacerbation * ongoing. subjective improvement. currently on home level of oxygen. * but given minimal air movement I still feel patient requires ongoing treatment with BDs, methylprednisolone. * anticipate slow recovery for this patient. 2. fall * lumbar spine xray reviewed and showed no obvious fracture * PT OT 3. Chronic issues: HFpEF, hypothyorid, depression/anxiety. complicates overall care and prognosis. 4. VTE proph: LMWH. Inpatient E&M: 76296 Subs Hosp L2
[2019-04-24] MEDS: 0.9% Saline Lock 10 ML Syringe IV ×3 (14:47→21:11)
[2019-04-24] MEDS: Ceftriaxone 1 GM/50 ML BAG IV (16:37)
[2019-04-24 18:17] LABS: Bacteria 0 SEEN /hpf (None Seen); Color, Urine Yellow (Yellow); Glucose, Dipstick 100 mg/dl (Normal); Ketone-Dipstick Negative (Negative); Leukocyte Esterase-Dipstick 25 /ul (Negative); Mucous, Urine 0 SEEN /hpf (<or=2+); Nitrite-Dipstick Negative (Negative); Occult Blood-Urine Negative /ul (Negative); Protein-Dipstick Negative (Negative); Red Blood Cells-Urine 0 SEEN /hpf (0-5); Specific Gravity, Urine 1.015 (1.002-1.030); Urine Bilirubin Dipstick Negative (Negative); Urine Clarity Clear (Clear); Urine Urobilinogen Normal (Normal)
[2019-04-24 18:49] LABS: Hyaline Cast 0-5 SEEN /lpf (0-5); Squamous Epithelial Cells - UA 0-5 SEEN /hpf (5-10); White Blood Cells 0-5 SEEN /hpf (0-5)
[2019-04-24] MEDS: Atorvastatin Calcium 40 MG Tablet PO (21:10)
[2019-04-24] MEDS: Tamsulosin HCl 0.4 MG Capsule PO (21:10)
[2019-04-25] VITALS (11 sets, daily range): BP systolic 92–137; BP diastolic 53–79; PULSE 73–91; RESP 16–20; TEMP 36.3–37.1; O2SAT 92–99
[2019-04-25] MEDS: Acetaminophen 500 MG Tablet PO ×3 (05:16→17:28)
[2019-04-25] MEDS: Levothyroxine 25 MCG TABLET PO (05:18)
[2019-04-25] MEDS: 0.9% Saline Lock 10 ML Syringe IV ×3 (05:18→21:29)
[2019-04-25 05:51] LABS: Absolute Lymphocyte Count 1.47 X10^3/uL (0.83-4.51); Absolute Neutrophil Count 8.9 X10^3/uL (2.0-7.7); Basophil# 0.01 X10^3/uL; Basophil% 0.1 % (0-1); Hematocrit 34.6 % (37-47); Hemoglobin 10.8 g/dL (12.0-15.0); Lymphocyte # 1.47 X10^3/ul (4.0); Lymphocyte % 13.6 % (19-41); Mean Corp Hgb Conc 31.2 g/dL (32-36); Mean Corpuscular Hgb 27.8 pg (27.0-32.0); Mean Corpuscular Volume 88.9 fL (81-99); Mean Platelet Vol. 8.8 fl (6.2-12.0); Monocyte# 0.31 X10^3/uL; Monocyte% 2.9 % (0-10); NRBC Flagged by Analyzer 0 % (0-5); Neutrophil # 8.92 X10^3/uL (2.7-7.7); Neutrophil % 82.8 % (47-70); Platelet Count 274 K/mm3 (150-450); RBC Distribution Width CV 13.1 % (11.6-14.6); RBC Distribution Width SD 42.5 fl (35.1-43.9); Red Blood Count 3.89 M/mm3 (4.2-5.4); White Blood Count 10.8 K/mm3 (4.4-11.0)
[2019-04-25 06:25] LABS: Anion Gap 4 (5-15); BUN 15 mg/dL (7-18); BUN/Creat Ratio 37.7 RATIO (10-20); Calcium,Total 8.6 mg/dL (8.5-10.1); Chloride 95 mmol/L (98-107); EST Glomerular Filtration Rate 174 mL/min (>60); Est Glom Filt Rate - Afr Amer 210 mL/min (>60); Estimated Creatinine Clearance 107.43 ml/min; Glucose 203 mg/dL (74-106); Potassium 3.6 mmol/L (3.5-5.1); Sodium Level 137 mmol/L (136-145)
[2019-04-25] MEDS: Ipratropium/Albuterol Sulfate 3 ML AMPUL.NEB INHALATION ×4 (06:50→19:10)
[2019-04-25] MEDS: Paroxetine 20 MG Tablet 40 MG PO (07:55)
[2019-04-25] MEDS: Doxycycline 100 MG CAPSULE PO ×2 (07:55→21:29)
[2019-04-25] MEDS: Aspirin 81 MG TAB.CHEW PO (07:55)
[2019-04-25] MEDS: Digoxin 250 MCG Tablet PO (07:55)
[2019-04-25] MEDS: Enoxaparin 40 MG/0.4 ML Syringe SC (07:56)
[2019-04-25] MEDS: Carvedilol 12.5 MG Tablet PO ×2 (07:56→21:29)
[2019-04-25] MEDS: Spironolactone 25 MG Tablet PO (07:56)
[2019-04-25] MEDS: Polyethylene Glycol 3350 17 GM PACKET PO (07:56)
[2019-04-25] MEDS: Losartan Potassium 50 MG Tablet PO (07:56)
[2019-04-25] MEDS: Furosemide 40 MG Tablet PO (07:56)
[2019-04-25 08:43] LABS: Vitamin B12 641 pg/mL (211-911); Vitamin D,25 Hydroxy 14.6 ng/mL
[2019-04-25] MEDS: Ceftriaxone 1 GM/50 ML BAG IV (10:04)
--- NOTE | 2019-04-25 11:52 | PN_ITS ---
Patient Problems: Active and Suspected Problems (Last Reviewed 04/24/19 @ 01:[address] Nicanor Chou MD) COPD exacerbation (Acute) Reason for Visit: Shortness of breath Subjective: Patient is a 58-year-old lady with past medical history single for COPD who presented with progressive shortness of breath was meant of COPD with acute exacerbation made admitted to a monitored bed for subsequent management Objective: GENERAL: Cooperative but dyspneic at rest HEENT: Atraumatic; EYES; Anicteric, Normal Conjunctiva NECK; supple, normal thyroid, RESPIRATORY: Diminished to auscultation CARDIOVASCULAR: Regular S1 S2, GI: soft, normoactive bowel sounds, : No Renal angle tenderness; EXTREMITIES: No edema, no clubbing, MUSCULOSKELETAL: no muscle waisting NEURO: Awake; no lateralizing signs. SKIN: No Rash PSYCH; Flat affect Vitals/I&O's: Vital Signs Temp Pulse Resp BP Pulse Ox 98.2 F 73 20 H 115/57 L 93 04/25/19 07:51 04/25/19 07:51 04/25/19 07:51 04/25/19 07:51 04/25/19 07:51 Oxygen Flow Rate (L/min) 3 Oxygen Delivery Method Nasal Cannula Weight: 67.2 kg Body Mass Index (BMI) 28.9 Intake and Output for Last 24 Hours 04/23/19 04/24/19 04/25/19 22:59 23:59 23:59 Intake Total 1150 / 1150 Balance 1150 / 1150 Microbiology Past 72 Hours 04/23/19 23:05 Blood Culture (Wb) #2 - Anticubital Left Blood Culture - Preliminary 04/23/19 21:40 Blood Culture (Wb) - Anticubital Right Blood Culture - Preliminary GNR lactose environmental services technician 04/23/19 22:00 Mucosa - Nose Influenza Types A,B Direct FA (ANGELES) - Final Laboratory Results 04/24/19 04:56: Vitamin B12 641, Vitamin D 25-Hydroxy 14.6 04/24/19 17:56: Urine Color Yellow, Urine Clarity Clear, Urine pH 5.0, Ur Specif ic [place] 1.015, Urine Protein Negative, Urine Glucose (UA) 100 H, Urine Ketones Negative, Urine Occult Blood Negative, Urine Nitrite Negative, Urine Bilirubin Negative, Urine Urobilinogen Normal, Ur Leukocyte Esterase 25 H, Urine RBC 0 SEEN, Urine WBC 0-5 SEEN, Ur Squamous Epith Cells 0-5 SEEN, Urine Bacteria 0 SEEN, Hyaline Casts 0-5 SEEN, Urine Mucus 0 SEEN 04/25/19 05:10: WBC 10.8, RBC 3.89 L, Hgb 10.8 L, Hct 34.6 L, MCV 88.9, MCH 27.8, MCHC 31.2 L, RDW Std Deviation 42.5, RDW Coeff of Siobhan 13.1, Plt Count 274, MPV 8.8, Immature Gran % (Auto) 0.600, Neut % (Auto) 82.8 H, Lymph % (Auto) 13.6 L, [place] % (Auto) 2.9, Eos % (Auto) 0.0, Baso % (Auto) 0.1, Absolute Neuts (auto) 8.9 H, Absolute Lymphs (auto) 1.47, Nucleated RBC % 0 04/25/19 05:10: Sodium 137, Potassium 3.6, Chloride 95 L, Carbon Dioxide 38.0 H, Anion Gap 4 L, BUN 15, Creatinine 0.40 L, Estim Creat Clear Calc 107.43, Est GFR (MDRD) Af Amer 210, Est GFR (MDRD) Non-Af 174, BUN/Creatinine Ratio 37.7 H, Glucose 203 H, Calcium 8.6 Current Medications Acetaminophen (Tylenol) 500 mg PO Q6 [facility] Last Admin: 04/25/19 05:16 Dose: 500 mg Documented by: Albuterol Sulfate (Ventolin Aerosols) 2.5 mg INHALATION Q2H PRN PRN PRN Reason: SOB/Wheezing Albuterol/Ipratropium (Duoneb) 3 ml INHALATION Q4HWA.RT [facility] Last Admin: 04/25/19 11:14 Dose: 3 ml Documented by: Aspirin (Aspirin, Baby) 81 mg PO DAILY@0800 [facility] Last Admin: 04/25/19 07:55 Dose: 81 mg Documented by: Atorvastatin Calcium (Lipitor) 40 mg PO DAILY@2200 [facility] Last Admin: 04/24/19 21:10 Dose: 40 mg Documented by: Carvedilol (Coreg) 12.5 mg PO BID [facility] Last Admin: 04/25/19 07:56 Dose: 12.5 mg Documented by: Digoxin (Lanoxin) 250 mcg PO DAILY [facility] Last Admin: 04/25/19 07:55 Dose: 250 mcg Documented by: Doxycycline Monohydrate (Doxycycline) 100 mg PO BID [facility] Last Admin: 04/25/19 07:55 Dose: 100 mg Documented by: Enoxaparin Sodium (Lovenox) 40 mg SC DAILY [facility] Last Admin: 04/25/19 07:56 Dose: 40 mg Documented by: Furosemide (Lasix) 40 mg PO DAILY [facility] Last Admin: 04/25/19 07:56 Dose: 40 mg Documented by: Glucagon () 1 mg IM .X1 PRN PRN Reason: Hypoglycemia Sodium Chloride () 500 mls @ 999 mls/hr IV .Q31M ONE Last Infusion: 04/24/19 01:11 Dose: Infused Documented by: Dextrose (Dextrose 10%-Water) 250 mls @ 999 mls/hr IV .Q16M PRN; Protocol PRN Reason: HYPOGLYCEMIA Ceftriaxone Sodium (Rocephin) 1 gm in 50 mls @ 100 mls/hr IV Q24 [facility] Last Infusion: 04/25/19 10:40 Dose: Infused Documented by: Levothyroxine Sodium (Synthroid) 25 mcg PO DAILY@0600 [facility] Last Admin: 04/25/19 05:18 Dose: 25 mcg Documented by: Losartan Potassium (Cozaar) 50 mg PO DAILY [facility] Last Admin: 04/25/19 07:56 Dose: 50 mg Documented by: Melatonin (Melatonin) 3 mg PO QHS PRN PRN PRN Reason: INSOMNIA Methylprednisolone (Solu-Medrol) 40 mg IV Q8 [facility] Last Admin: 04/25/19 05:18 Dose: 40 mg Documented by: Paroxetine HCl (Paxil) 40 mg PO DAILY [facility] Last Admin: 04/25/19 07:55 Dose: 40 mg Documented by: Polyethylene Glycol (Miralax) 17 gm PO DAILY [facility] Last Admin: 04/25/19 07:56 Dose: 17 gm Documented by: Sodium Chloride () 10 - 40 ml IV UD PRN PRN Reason: SALINE FLUSH Last Admin: 04/25/19 05:18 Dose: 10 ml Documented by: Spironolactone (Aldactone) 25 mg PO DAILY [facility] Last Admin: 04/25/19 07:56 Dose: 25 mg Documented by: Tamsulosin HCl (Flomax) 0.4 mg PO QHS [facility] Last Admin: 04/24/19 21:10 Dose: 0.4 mg Documented by: Medical Necessity - Tobacco Use Smoking Status: Former smoker Assessment/Plan All Active Problems (Last Reviewed 04/24/19 @ 01:[address] Nicanor Chou MD) Acute and chronic respiratory failure with hypoxia (Acute) COPD exacerbation (Acute) Patient is a 58-year-old lady with past medical history single for COPD who presented with progressive shortness of breath was meant of COPD with acute exacerbation made admitted to a monitored bed for subsequent management 1. Acute COPD exacerbation ?Patient admitted to a monitored bed managed with bronchodilator treatment systemic steroids as well as doxycycline. Patient was placed on supplemental oxygen titrated to keep saturation greater than 90. Consult was also placed the patient's advanced practice provider Dr. Wallace 2. Acute mechanical fall with right hip pain ?Requested for PT OT eval and treatment in addition to pain management 3. Hypertension ~ blood pressure controlled, home medications continued with dose adjustment as needed 4. Hypothyroidism ~patient is on levothyroxine home dose continued 5. History of Takotsubo cardiomyopathy ?2D echo obtained on 03/01/2019 demonstrated segmental dysfunction with preserved ejection fraction 55% 6. Cardiomyopathy ?With previous AICD placement 7. Depression with anxiety ?Patient is on paroxetine did continue 8. Constipation ?Treated symptomatically 9. DVT prophylaxis ?Lovenox Inpatient E&M: 45077 Subs Hosp L2
--- NOTE | 2019-04-25 15:00 | CASEMGMT ---
RN CM Assessment Introduced role of RN CM to patient.? Patient is alert, oriented and able?to participate in RN CM Assessment. ?Care providers, pharmacy, and demographics verified. Presentation: Progressive worsening SOB. H/o former tobacco abuse, CHF s/p AICD/pacemaker, depression/anxiety, COPD on home O2 Admit Dx: COPD Exacerbation Re-Admit: No Barriers/Issues: None PCP: Carlos Ross Chi. States Dr Ross doesn't listen to her and she has seen Chloe Wellington NP #[phone] since. Specialists: Pulm- Dr Wallace, Cardio- Dr Yeboah Preferred Pharmacy: [facility] Insurance: [facility], [facility] CP marysol Rx Benefit:?Yes ?LNOK: Dtr Natasha Richardson LW/HPOA: None, declined completion on this admission, information with SW rack card provided and made aware can return as an Outpatient to complete Living Arrangements:?Lives with Dtr Natasha and son in law in a 2SH. Bedroom on with a bathroom. 4 steps to enter home ADL?s: States does not take a shower, in process of having a stair lift placed to get to shower in basement. She sponge bathes and is Independent with her ADLs. Ambulates with 2WW or Rollator. Transportation: [facility] van for appointments, Her brother. States her Dtr does not drive. DME: 2WW, Home O2 3L continuous- Walt, Couple POC- full. Nebulizer, Shower bench, 3 in 1 BSC, WC, Rollator HHC: States should be current with [facility] for PT/OT- arranged by [facility] upon DC on 03/29/2019 but nobody has started care/come out. States that she is progressing and doing better and not sure of any current/additional PT/OT need. SNF: Recent DC from [facility] on 03/29/2019. Goal: Home and does not think will have any needs. Denies any issues, concerns, needs or questions with DC planning at this time. Aware CM remains available ,for any emerging needs. DC PLAN: Home and RNCM to continue to follow for any additional PT/OT needs, see above note. KIMBERLEY Mar
[2019-04-25] MEDS: Tamsulosin HCl 0.4 MG Capsule PO (21:29)
[2019-04-25] MEDS: Atorvastatin Calcium 40 MG Tablet PO (21:29)
[2019-04-25] MEDS: MELATONIN 3 MG TABLET PO (21:34)
[2019-04-26] VITALS (10 sets, daily range): BP systolic 91–135; BP diastolic 44–72; PULSE 72–90; RESP 18–20; TEMP 36.6–37.1; O2SAT 92–97
[2019-04-26] MEDS: Acetaminophen 500 MG Tablet PO ×2 (00:54→05:51)
[2019-04-26] MEDS: Levothyroxine 25 MCG TABLET PO (05:51)
[2019-04-26] MEDS: 0.9% Saline Lock 10 ML Syringe IV ×3 (05:51→21:19)
[2019-04-26] MEDS: Aspirin 81 MG TAB.CHEW PO (08:15)
--- NOTE | 2019-04-26 10:21 | CON.PCM_ITS ---
Reason for Consult Date of Consultation: 04/26/19 Reason for Consultation: COPD exacerbation History of Present Illness: The patient is a 58-year-old female, with a history as outlined below, who presented to the emergency department on April 22 with complaints of worsening shortness of breath. The patient was recently admitted to the hospital during the latter half of February 2019, during which time, she was treated for a COPD exacerbation precipitated by influenza A and RSV. The patient did follow-up in the pulmonary medicine clinic with our nurse practitioner after that hospital admission. Pulmonary function studies along with a 6-minute walk test was ordered. The patient reports that she is currently scheduled to undergo testing at the end of this week and again next week. The patient initially presented to our pulmonary office in 2015 to establish care with a self-reported history of COPD/asthma. However, the patient was then lost to follow-up. She does have a baseline 3 L/min supplemental oxygen requirement. She does have an extensive smoking history of approximately 70 pack years, having quit in 2014. On presentation to the emergency department, the patient was noted to be afebrile, tachycardic and tachypneic. Laboratory evaluation revealed a mildly elevated white blood cell count to 11,000. Chemistry profile was notable for a chronically elevated serum bicarbonate. Lactate was within normal limits. Troponin was negative. Plain film chest x-ray revealed chronic interstitial changes. The patient was once again felt to be experiencing an acute COPD exacerbation. Therefore, she was placed on aerosol treatments and steroids. She was then admitted to the progressive care unit for further management. The patient has had an uncomplicated hospital course. She has been maintained on bronchodilators and IV steroids. Her breathing quality and oxygen status are at their baseline. However, blood cultures were positive for E. coli. CT abdomen/pelvis was obtained and revealed a focal left lower lobe infiltrate. Past Medical History Past Medical History (Chronic Problems): Chronic Problems (Last Reviewed 04/24/19 @ 01:[address] Nicanor Chou MD) COPD (chronic obstructive pulmonary disease) (Chronic) COPD exacerbation (Chronic) Essential hypertension (Chronic) Elevated LFTs (Chronic) Hepatitis A (Chronic) RBBB (right bundle branch block) (Chronic) Hyperlipidemia (Chronic) Cardiomyopathy, dilated (Chronic) Nonrheumatic mitral valve regurgitation (Chronic) Chronic systolic congestive heart failure (Chronic) Biventricular automatic implantable cardioverter defibrillator in situ (Chronic ~01/05/15) RV lead implantation complicated by tamponade -pericardiocentesis done 01/05/15 Atherosclerotic heart disease of [place] coronary artery without angina pectoris (Chronic) Ventricular tachycardia (Chronic) Medical History: Medical History (Last Reviewed 04/24/19 @ 01:[address] Nicanor Chou MD) Obesity (BMI 30.0-34.9) (Inactive) E66.9 RBBB (right bundle branch block) (Chronic) I45.10 Hyperlipidemia (Chronic) E78.5 Cardiomyopathy, dilated (Chronic) I42.0 Nonrheumatic mitral valve regurgitation (Chronic) I34.0 Chronic systolic congestive heart failure (Chronic) I50.22 Biventricular automatic implantable cardioverter defibrillator in situ (Chronic) Onset Date: ~01/05/15 Z95.810 RV lead implantation complicated by tamponade -pericardiocentesis done 01/05/15 Atherosclerotic heart disease of [place] coronary artery without angina pectoris (Chronic) I25.10 Ventricular tachycardia (Chronic) I47.2 Anxiety F41.9 COPD (chronic obstructive pulmonary disease) J44.9 Depression F32.9 Cardiac tamponade (Inactive) I31.4 Allergies acetaminophen [From Vicodin] Allergy (Verified 04/23/19 21:36) Hives hydrocodone bitartrate [From Vicodin] Allergy (Verified 04/23/19 21:36) Hives Penicillins Allergy (Verified 04/23/19 21:36) Anaphylaxis Home Medications: Ambulatory Orders Medication Instructions Recorded Losartan Potassium [Cozaar] 50 mg PO DAILY 04/16/15 Spironolactone [Aldactone] 25 mg PO DAILY 04/16/15 albuterol sulfate 90 mcg/actuation 2 puff INHALATION Q4H PRN 06/30/17 aerosol inhaler atorvastatin 40 mg tablet 40 mg PO QDAY 06/30/17 carvedilol 12.5 mg tablet 12.5 mg PO BID 06/30/17 Levothyroxine [Synthroid] 25 mcg PO DAILY 12/10/17 Paroxetine HCl [Paxil] 40 mg PO DAILY 12/10/17 Tamsulosin HCl [Flomax] 0.4 mg PO QHS 12/10/17 Budesonide/Formoterol 160/4.5 2 puff INHALATION BID 03/01/19 [Symbicort 160/4.5 Mcg Inhaler (SP)] Digoxin [Lanoxin] 250 mcg PO DAILY 03/01/19 Albuterol Aerosols [Ventolin 2.5 mg INHALATION Q4H PRN PRN #1 03/10/19 Aerosols] Aspirin [Aspirin, Baby] 81 mg PO DAILY@0800 #90 tab.chew 03/10/19 Furosemide [Lasix] 40 mg PO DAILY #90 tab 03/10/19 Home Oxygen 3 lpm INHALATION CONT #0 03/10/19 Ipratropium/Albuterol Sulfate 3 ml INHALATION [id number] #40 03/10/19 [Duoneb] ampul.neb Prednisone 10 mg PO DAILY #75 tab 03/10/19 Surgical History: Surgical History (Last Reviewed 04/24/19 @ 01:[address] Nicanor Chou MD) History of tubal ligation Z98.51 Status post pericardiocentesis Z98.890 Surgical History: - - x 2, hysterectomy, AICD/pacemaker placement. Psychiatric History: Anxiety, Depression CLINICAL REHABILITATION COORDINATOR History: No pertinent CLINICAL REHABILITATION COORDINATOR history Smoking Status: Former smoker - *Family History Maternal Family History: Family History (Last Reviewed 04/24/19 @ 01:[address] Nicanor Chou MD) Father CAD (coronary artery disease) Hypertension Mother CAD (coronary artery disease) Hypertension Diabetes Brother CAD (coronary artery disease) History Items: Diabetes, Heart Disease, Hypertension Paternal Family History: Family History (Last Reviewed 04/24/19 @ 01:[address] Nicanor Chou MD) Father CAD (coronary artery disease) Hypertension Mother CAD (coronary artery disease) Hypertension Diabetes Brother CAD (coronary artery disease) History Items: Heart Disease, Hypertension Review of Systems Constitutional: Denies: Chills, Fever Eyes: Denies: Blurred vision, Double vision HEENT: Denies: Head Aches, Sinus Congestion, Sinus Drainage Cardiovascular: Denies: Chest Pain, Palpitations Respiratory: Reports: Shortness of Breath Gastrointestinal: Denies: Abdominal Pain, Nausea, Vomiting Genitourinary: Denies: Dysuria Musculoskeletal: Denies: Joint Pain, Joint Tenderness Skin: Denies: Rash, Wounds Neurological: Denies: Numbness, Tingling, Focal weakness Psychiatric: Reports: Anxiety Hematologic/ Lymphatic: Reports: Anemia Patient Problems: Active and Suspected Problems (Last Reviewed 04/24/19 @ 01:[address] Nicanor Chou MD) Bacteremia (Acute) COPD exacerbation (Acute) Objective: The patient's most recent lab work, culture data and imaging studies have all been personally reviewed. - Physical Exam Vitals/I&O's: Vital Signs Temp Pulse Resp BP Pulse Ox 98.7 F 89 18 135/48 H 92 04/26/19 10:15 04/26/19 10:15 04/26/19 10:15 04/26/19 10:15 04/26/19 10:15 Oxygen Flow Rate (L/min) 3 Oxygen Delivery Method Nasal Cannula Weight: 148 lb 2.41 oz Body Mass Index (BMI) 28.9 Intake and Output for Last 24 Hours 04/24/19 04/25/19 04/26/19 23:59 23:59 23:59 Intake Total 1390 / 1690 400 / 400 Balance 1390 / 1690 400 / 400 General: Alert, Oriented x3, Cooperative, No apparent distress HEENT: Atraumatic, PERRLA, Normocephalic Oral: No Gingival or Mucosal Lesions/ Ulcerations Neck: Supple, No Nodes, Trachea Midline Lungs: No rhonchi, No wheeze, No rales, Diminished Cardiovascular: Regular rate, Regular Rhythm, Normal S1, Normal S2, No murmurs Abdomen: Bowel Sounds Present, Soft, Tender Extremities: No clubbing, No cyanosis, No edema Skin: No breakdown Musculoskeletal: No Tenderness to Palpation of Joints or Extremities Lymphatic: No Cervical, Supraclavicular, or Inguinal Adenopathy Neurological: Cranial nerves II-XII grossly intact, Neuro grossly intact Psych/Mental Status: Normal Affect, Appropriate Labs (Last 48 Hours) 04/24/19 04/24/19 04/25/19 04:56 17:56 05:10 WBC 10.8 RBC 3.89 L Hgb 10.8 L Hct 34.6 L MCV 88.9 MCH 27.8 MCHC 31.2 L RDW Std Deviation 42.5 RDW Coeff of Siobhan 13.1 Plt Count 274 MPV 8.8 Immature Gran % (Auto) 0.600 Neut % (Auto) 82.8 H Lymph % (Auto) 13.6 L Bailey % (Auto) 2.9 Eos % (Auto) 0.0 Baso % (Auto) 0.1 Absolute Neuts (auto) 8.9 H Absolute Lymphs (auto) 1.47 Nucleated RBC % 0 Sodium Potassium Chloride Carbon Dioxide Anion Gap BUN Creatinine Estim Creat Clear Calc Est GFR (MDRD) Af Amer Est GFR (MDRD) Non-Af BUN/Creatinine Ratio Glucose Calcium Vitamin B12 641 Vitamin D 25-Hydroxy 14.6 Urine Color Yellow Urine Clarity Clear Urine pH 5.0 Ur Specific [place] 1.015 Urine Protein Negative Urine Glucose (UA) 100 H Urine Ketones Negative Urine Occult Blood Negative Urine Nitrite Negative Urine Bilirubin Negative Urine Urobilinogen Normal Ur Leukocyte Esterase 25 H Urine RBC 0 SEEN Urine WBC 0-5 SEEN Ur Squamous Epith Cells 0-5 SEEN Urine Bacteria 0 SEEN Hyaline Casts 0-5 SEEN Urine Mucus 0 SEEN 04/25/19 05:10 WBC RBC Hgb Hct MCV MCH MCHC RDW Std Deviation RDW Coeff of [place]obhan Plt Count MPV Immature Gran % (Auto) Neut % (Auto) Lymph % (Auto) Bailey % (Auto) Eos % (Auto) Baso % (Auto) Absolute Neuts (auto) Absolute Lymphs (auto) Nucleated RBC % Sodium 137 Potassium 3.6 Chloride 95 L Carbon Dioxide 38.0 H Anion Gap 4 L BUN 15 Creatinine 0.40 L Estim Creat Clear Calc 107.43 Est GFR (MDRD) Af Amer 210 Est GFR (MDRD) Non-Af 174 BUN/Creatinine Ratio 37.7 H Glucose 203 H Calcium 8.6 Vitamin B12 Vitamin D 25-Hydroxy Urine Color Urine Clarity Urine pH Ur Specific [place] Urine Protein Urine Glucose (UA) Urine Ketones Urine Occult Blood Urine Nitrite Urine Bilirubin Urine Urobilinogen Ur Leukocyte Esterase Urine RBC Urine WBC Ur Squamous Epith Cells Urine Bacteria Hyaline Casts Urine Mucus Microbiology 04/24/19 17:56 Urine, Clean Catch Urine Culture - Final Mixed Gram Positive Organisms 04/23/19 23:05 Blood Culture (Wb) #2 - Anticubital Left Blood Culture - Preliminary Presumptive E. coli 04/23/19 21:40 Blood Culture (Wb) - Anticubital Right Blood Culture - Preliminary Escherichia coli Clinical Impression(s) from Imaging Studies Chest X-Ray 04/23/19 22:21 IMPRESSION: Chronic interestitial changes. No radiographic evidence of acute cardiopulmonary disease. at 2321 Reported and signed by: Jaswant Castañeda MD Electronically Signed: Jaswant Castañeda MD at 23:20 EST Tel , Service support , Lumbar Spine X-Ray 04/23/19 22:21 IMPRESSION: No acute lumbar spine fracture or subluxation. at 2325 Reported and signed by: Jaswant Castañeda MD Electronically Signed: Jaswant Castañeda MD at 23:24 EST Tel , Service support , Current Medications Acetaminophen (Tylenol) 500 mg PO Q6 [facility] Last Admin: 04/26/19 05:51 Dose: 500 mg Documented by: Albuterol Sulfate (Ventolin Aerosols) 2.5 mg INHALATION Q2H PRN PRN PRN Reason: SOB/Wheezing Albuterol/Ipratropium (Duoneb) 3 ml INHALATION Q4HWA.RT [facility] Last Admin: 04/26/19 07:00 Dose: Not Given Documented by: Aspirin (Aspirin, Baby) 81 mg PO DAILY@0800 [facility] Last Admin: 04/26/19 08:15 Dose: 81 mg Documented by: Atorvastatin Calcium (Lipitor) 40 mg PO DAILY@2200 [facility] Last Admin: 04/25/19 21:29 Dose: 40 mg Documented by: Carvedilol (Coreg) 12.5 mg PO BID [facility] Last Admin: 04/25/19 21:29 Dose: 12.5 mg Documented by: Digoxin (Lanoxin) 250 mcg PO DAILY [facility] Last Admin: 04/25/19 07:55 Dose: 250 mcg Documented by: Doxycycline Monohydrate (Doxycycline) 100 mg PO BID [facility] Last Admin: 04/25/19 21:29 Dose: 100 mg Documented by: Enoxaparin Sodium (Lovenox) 40 mg SC DAILY [facility] Last Admin: 04/25/19 07:56 Dose: 40 mg Documented by: Furosemide (Lasix) 40 mg PO DAILY [facility] Last Admin: 04/25/19 07:56 Dose: 40 mg Documented by: Glucagon () 1 mg IM .X1 PRN PRN Reason: Hypoglycemia Sodium Chloride () 500 mls @ 999 mls/hr IV .Q31M ONE Last Infusion: 04/24/19 01:11 Dose: Infused Documented by: Dextrose (Dextrose 10%-Water) 250 mls @ 999 mls/hr IV .Q16M PRN; Protocol PRN Reason: HYPOGLYCEMIA Ceftriaxone Sodium (Rocephin) 1 gm in 50 mls @ 100 mls/hr IV Q24 [facility] Last Infusion: 04/25/19 10:40 Dose: Infused Documented by: Levothyroxine Sodium (Synthroid) 25 mcg PO DAILY@0600 [facility] Last Admin: 04/26/19 05:51 Dose: 25 mcg Documented by: Losartan Potassium (Cozaar) 50 mg PO DAILY [facility] Last Admin: 04/25/19 07:56 Dose: 50 mg Documented by: Melatonin (Melatonin) 3 mg PO QHS PRN PRN PRN Reason: INSOMNIA Last Admin: 04/25/19 21:34 Dose: 3 mg Documented by: Methylprednisolone (Solu-Medrol) 40 mg IV Q8 [facility] Last Admin: 04/26/19 05:51 Dose: 40 mg Documented by: Paroxetine HCl (Paxil) 40 mg PO DAILY [facility] Last Admin: 04/25/19 07:55 Dose: 40 mg Documented by: Polyethylene Glycol (Miralax) 17 gm PO DAILY [facility] Last Admin: 04/25/19 07:56 Dose: 17 gm Documented by: Sodium Chloride () 10 - 40 ml IV UD PRN PRN Reason: SALINE FLUSH Last Admin: 04/26/19 05:51 Dose: 10 ml Documented by: Spironolactone (Aldactone) 25 mg PO DAILY [facility] Last Admin: 04/25/19 07:56 Dose: 25 mg Documented by: Tamsulosin HCl (Flomax) 0.4 mg PO QHS [facility] Last Admin: 04/25/19 21:29 Dose: 0.4 mg Documented by: Assessment/Plan All Active Problems (Last Reviewed 04/24/19 @ 01:[address] Nicanor Chou MD) Bacteremia (Acute) Acute and chronic respiratory failure with hypoxia (Acute) COPD exacerbation (Acute) RECOMMENDATIONS: 1. Continue antibiotics, bronchodilators and steroids. 2. Wean supplemental oxygen as tolerated. 3. Encourage incentive spirometer use and mobilize patient as tolerated. IMPRESSIONS: 1. COPD with exacerbation [place] to be secondary to left lower lobe infiltrate identified on CT abdomen/pelvis. Agree with continuing antibiotics, bronchodilators and steroids. Breathing quality is approaching baseline. The patient has a baseline 3 L/min supplemental oxygen requirement. She undoubtedly needs to follow-up in the pulmonary medicine clinic and needs to complete pulmonary function studies along with a formal 6-minute walk test which are currently scheduled for later this week and next week. Once pulmonary function studies are completed, the patient would likely be a good candidate for the initiation of noninvasive ventilatory support in her home environment, given her chronic CO2 retention. 2. E. coli bacteremia CT abdomen/pelvis showed no intra-abdominal pathology. Infectious diseases has been consulted. Continue antimicrobials. 3. Hypertension/hypothyroidism/hyperlipidemia/chronic pain syndrome Complicates care, management, recovery and prognosis. Continue home medications as indicated. This note was generated with Wideo dictation software. It may contain incorrect words, spelling, and punctuation that were not noted in checking the note before signing. Inpatient E&M: 96387 Init Hosp L3
[2019-04-26] MEDS: Polyethylene Glycol 3350 17 GM PACKET PO (10:28)
[2019-04-26] MEDS: Paroxetine 20 MG Tablet 40 MG PO (10:30)
[2019-04-26] MEDS: Losartan Potassium 50 MG Tablet PO (10:30)
[2019-04-26] MEDS: Spironolactone 25 MG Tablet PO (10:30)
[2019-04-26] MEDS: Furosemide 40 MG Tablet PO (10:30)
[2019-04-26] MEDS: Doxycycline 100 MG CAPSULE PO (10:30)
[2019-04-26] MEDS: Carvedilol 12.5 MG Tablet PO ×2 (10:30→21:18)
[2019-04-26] MEDS: Digoxin 250 MCG Tablet PO (10:30)
[2019-04-26] MEDS: Enoxaparin 40 MG/0.4 ML Syringe SC (10:33)
[2019-04-26] MEDS: Ceftriaxone 1 GM/50 ML BAG IV (10:34)
--- NOTE | 2019-04-26 10:41 | CASEMGMT ---
Patient is active with [facility]. SW called [facility] [place] and left a message on the coverage line letting them know when patient was admitted. Amie GALVAN MSW
--- NOTE | 2019-04-26 10:57 | CT_ITS ---
STUDY: CT ABDOMEN AND PELVIS WITH CONTRAST REASON FOR EXAM: Female, 58 years old. BACTEREMIA. PRIOR HYSTERECTOMY RADIATION DOSAGE (If Supplied By Facility): CTDIvol = ( 12.60 ) mGy, DLP = ( 583.56 ) mGycm TECHNIQUE: Transaxial images were obtained from the dome of the diaphragm to the symphysis pubis without oral contrast. IV 100ML ISOVUE 300 was administered. Sagittal and coronal images were reconstructed. Individualized dose optimization techniques were used for this CT. COMPARISON: Comparison is made with prior examination dated January 31, 2019. FINDINGS: Focal infiltration is seen in the left lower lobe. The dual-chamber pacemaker is seen. Normal liver. Normal gallbladder and extrahepatic biliary system. Normal spleen. Normal pancreas. Normal bilateral adrenal glands. Normal right kidney. Normal left kidney. Normal visualized stomach. Normal small intestine. There are scattered colonic diverticula consistent with diverticulosis. Moderate amount of fecal material is seen in the right hemicolon. The appendix is visualized and appears normal. There is diffuse atherosclerotic calcification of the abdominal aorta and its major visceral branches, without a demonstrated aneurysm. Normal inferior vena cava. Normal retroperitoneum. Normal urinary bladder. There is absence of the uterus consistent with a prior hysterectomy. There is a small umbilical hernia containing fat. Normal osseous structures. CT/Abdomen/Pelvis WITH Contrast IMPRESSION: Focal left lower lobe infiltrate. Electronically Signed: Khurram Recio, at 14:31 EDT , Service support ,
--- NOTE | 2019-04-26 10:58 | US_ITS ---
STUDY: RENAL ULTRASOUND - COMPLETE REASON FOR EXAM: Female, 58 years old. FLANK TENDERNESS TECHNIQUE: Ultrasound evaluation of the kidneys was performed with real-time and static almanza-scale imaging. COMPARISON: Previous ultrasound of the abdomen dated 01/31/2019 FINDINGS: RIGHT KIDNEY: Normal location of the right kidney, which is normal in size. The right kidney measures 10.2 x 4.9 x 4.6 cm. There is a normal cortex of the right kidney. The renal cortex measures 1.4 cm. There is no right renal mass or cyst. There are no right renal calculi. There is no right hydronephrosis. DISTAL RIGHT URETER: There is non-visualization of the distal right ureter. There is no demonstrated right ureterovesical junction calculus. There is no demonstrated right ureteral jet. LEFT KIDNEY: Normal location of the left kidney, which is normal in size. The left kidney measures 10.6 x 4.3 x 5.3 cm. There is a normal cortex of the left kidney. The renal cortex measures 1.7 cm. There is no left renal mass or cyst. There are no left renal calculi. There is no left hydronephrosis. DISTAL LEFT URETER: There is non-visualization of the distal left ureter. There is no demonstrated left ureterovesical junction calculus. There is no demonstrated left ureteral jet. BLADDER: The distended urinary bladder has a volume of 103 ml. . There is a normal wall thickness of the distended urinary bladder. Bladder wall thickness is 3 mm. There is no demonstrated mass within the urinary bladder. There are no demonstrated bladder calculi. US/Kidney and Bladder IMPRESSION: Normal ultrasound of the kidneys and urinary bladder. Electronically Signed: Mango Keene MD at 17:12 EDT , Service support ,
[2019-04-26] MEDS: Ipratropium/Albuterol Sulfate 3 ML AMPUL.NEB INHALATION ×3 (11:21→19:19)
[2019-04-26] MEDS: Acetaminophen 500 MG Tablet 1000 MG PO ×3 (11:33→23:42)
[2019-04-26] MEDS: traMADol 50 MG Tablet PO ×2 (11:33→21:20)
--- NOTE | 2019-04-26 11:54 | PCM.PN.HOSP ---
<Chau Judd - Last Filed: 04/26/19 11:54> Patient Problems: Active and Suspected Problems (Last Reviewed 04/24/19 @ 01:[address] Nicanor Chou MD) COPD exacerbation (Acute) Reason for Visit: Sob Subjective: Pt resting comfortably in bed NAD. Breathing mildly improved. No fever/ chills. + Blood cultures with e coli - UA negative. No dysuria. She does complain of mild diffuse abdominal pain and flank pain L>R. She states she has intermittent abd pain due to chronic constipation. She also has ongoing hip pain for which she is in palliative care. Pt was recently started on methadone for this but it made her too sleepy. She is requesting an alternative today. Vitals/I&O's: Vital Signs Temp Pulse Resp BP Pulse Ox 98.7 F 89 20 H 135/48 H 92 04/26/19 10:15 04/26/19 11:21 04/26/19 11:21 04/26/19 10:15 04/26/19 10:15 Oxygen Flow Rate (L/min) 3 Oxygen Delivery Method Nasal Cannula Weight: 148 lb 2.41 oz Body Mass Index (BMI) 28.9 Intake and Output for Last 24 Hours 04/24/19 04/25/19 04/26/19 23:59 23:59 23:59 Intake Total 1390 / 1690 690 / 690 Balance 1390 / 1690 690 / 690 General: Alert, Oriented x3, Cooperative HEENT: Atraumatic, PERRLA, EOMI, Normocephalic Neck: Supple, No JVD, Negative Carotid Bruits Lungs: Clear to auscultation, Diminished Cardiovascular: Regular rate, No murmurs Abdomen: Bowel Sounds Present, Soft, Non Tender, Hypoactive Bowel Sounds, Tender - mild tenderness to deep palp diffusely. Extremities: No edema, Capillary Refill Less than 3 Seconds Skin: No rashes, No breakdown Musculoskeletal: No Tenderness to Palpation of Joints or Extremities Neurological: Cranial nerves II-XII grossly intact Psych/Mental Status: Normal Affect, Appropriate, Alert and oriented to time, place, person, mood and affect Microbiology Past 72 Hours 04/24/19 17:56 Urine, Clean Catch Urine Culture - Final Mixed Gram Positive Organisms 04/23/19 23:05 Blood Culture (Wb) #2 - Anticubital Left Blood Culture - Preliminary Presumptive E. coli 04/23/19 21:40 Blood Culture (Wb) - Anticubital Right Blood Culture - Preliminary Escherichia coli 04/23/19 22:00 Mucosa - Nose Influenza Types A,B Direct FA (ANGELES) - Final Current Medications Acetaminophen (Tylenol) 1,000 mg PO Q6 [facility] Last Admin: 04/26/19 11:33 Dose: 1,000 mg Documented by: Albuterol Sulfate (Ventolin Aerosols) 2.5 mg INHALATION Q2H PRN PRN PRN Reason: SOB/Wheezing Albuterol/Ipratropium (Duoneb) 3 ml INHALATION Q4HWA.RT [facility] Last Admin: 04/26/19 11:21 Dose: 3 ml Documented by: Aspirin (Aspirin, Baby) 81 mg PO DAILY@0800 [facility] Last Admin: 04/26/19 08:15 Dose: 81 mg Documented by: Atorvastatin Calcium (Lipitor) 40 mg PO DAILY@2200 [facility] Last Admin: 04/25/19 21:29 Dose: 40 mg Documented by: Carvedilol (Coreg) 12.5 mg PO BID [facility] Last Admin: 04/26/19 10:30 Dose: 12.5 mg Documented by: Digoxin (Lanoxin) 250 mcg PO DAILY [facility] Last Admin: 04/26/19 10:30 Dose: 250 mcg Documented by: Enoxaparin Sodium (Lovenox) 40 mg SC DAILY [facility] Last Admin: 04/26/19 10:33 Dose: 40 mg Documented by: Furosemide (Lasix) 40 mg PO DAILY [facility] Last Admin: 04/26/19 10:30 Dose: 40 mg Documented by: Glucagon () 1 mg IM .X1 PRN PRN Reason: Hypoglycemia Sodium Chloride () 500 mls @ 999 mls/hr IV .Q31M ONE Last Infusion: 04/24/19 01:11 Dose: Infused Documented by: Dextrose (Dextrose 10%-Water) 250 mls @ 999 mls/hr IV .Q16M PRN; Protocol PRN Reason: HYPOGLYCEMIA Ceftriaxone Sodium 2 gm/ (Sodium Chloride) 50 mls @ 100 mls/hr IV Q24 [facility] Levothyroxine Sodium (Synthroid) 25 mcg PO DAILY@0600 [facility] Last Admin: 04/26/19 05:51 Dose: 25 mcg Documented by: Losartan Potassium (Cozaar) 50 mg PO DAILY [facility] Last Admin: 04/26/19 10:30 Dose: 50 mg Documented by: Melatonin (Melatonin) 3 mg PO QHS PRN PRN PRN Reason: INSOMNIA Last Admin: 04/25/19 21:34 Dose: 3 mg Documented by: Methylprednisolone (Solu-Medrol) 40 mg IV Q8 [facility] Last Admin: 04/26/19 05:51 Dose: 40 mg Documented by: Paroxetine HCl (Paxil) 40 mg PO DAILY [facility] Last Admin: 04/26/19 10:30 Dose: 40 mg Documented by: Polyethylene Glycol (Miralax) 17 gm PO DAILY [facility] Last Admin: 04/26/19 10:28 Dose: 17 gm Documented by: Sodium Chloride () 10 - 40 ml IV UD PRN PRN Reason: SALINE FLUSH Last Admin: 04/26/19 05:51 Dose: 10 ml Documented by: Spironolactone (Aldactone) 25 mg PO DAILY [facility] Last Admin: 04/26/19 10:30 Dose: 25 mg Documented by: Tamsulosin HCl (Flomax) 0.4 mg PO QHS [facility] Last Admin: 04/25/19 21:29 Dose: 0.4 mg Documented by: Tramadol HCl (Ultram) 50 mg PO Q6H PRN PRN PRN Reason: Pain Score 4-1010 Last Admin: 04/26/19 11:33 Dose: 50 mg Documented by: STROKE Vital Signs/Narrative: Vital Signs Temp Pulse Resp BP Pulse Ox 04/26/19 11:21 89 20 H 04/26/19 10:15 98.7 F 89 18 135/48 H 92 Medical Necessity - Tobacco Use Smoking Status: Former smoker Assessment/Plan All Active Problems (Last Reviewed 04/24/19 @ 01:[address] Nicanor Chou MD) Acute and chronic respiratory failure with hypoxia (Acute) COPD exacerbation (Acute) 1. E coli bacteremia - unclear etiology - UA neg. Obtain ct abdomen, renal US. rocephin to 2g, e coli with resistance only to amp. mild wbc elevation at admission, now normal, no fever. LA 1.3 at admission. Consult to ID. 2. COPD exacerbation - pulm following. continue aerosols, steroids, IS. CO2 high but improved since admission. doxy stopped. trop neg. 3. Severe osteoarthritis, chronic pain in palliative care - recently off methadone due to lethargy. will trial ultram. continue PTOT> 4. HTN 5. Hypothyroidism - synthroid 6. Hx Takotsubo CM - no cp, trop neg. Has ICD. 7. Depression / Anx - paxil 8. Chronic constipation - multiple small hard BMs lately. daily MoM/sennokot. 9. Hx Hepatitis A - check AM CMP. DVT ppx: lovenox DC planning: PTOT This patient was seen by Chau Judd PA-C under the supervision of Doctor Rojelio. <Rao Serrato - Last Filed: 04/26/19 13:39> Vitals/I&O's: Vital Signs Temp Pulse Resp BP Pulse Ox 98.7 F 89 20 H 135/48 H 92 04/26/19 10:15 04/26/19 11:21 04/26/19 11:21 04/26/19 10:15 04/26/19 10:15 Oxygen Flow Rate (L/min) 3 Oxygen Delivery Method Nasal Cannula Weight: 67.2 kg Body Mass Index (BMI) 28.9 Intake and Output for Last 24 Hours 04/24/19 04/25/19 04/26/19 23:59 23:59 23:59 Intake Total 1390 / 1690 690 / 690 Balance 1390 / 1690 690 / 690 Microbiology Past 72 Hours 04/24/19 17:56 Urine, Clean Catch Urine Culture - Final Mixed Gram Positive Organisms 04/23/19 23:05 Blood Culture (Wb) #2 - Anticubital Left Blood Culture - Preliminary Presumptive E. coli 04/23/19 21:40 Blood Culture (Wb) - Anticubital Right Blood Culture - Preliminary Escherichia coli 04/23/19 22:00 Mucosa - Nose Influenza Types A,B Direct FA (ANGELES) - Final Current Medications Acetaminophen (Tylenol) 1,000 mg PO Q6 [facility] Last Admin: 04/26/19 11:33 Dose: 1,000 mg Documented by: Albuterol Sulfate (Ventolin Aerosols) 2.5 mg INHALATION Q2H PRN PRN PRN Reason: SOB/Wheezing Albuterol/Ipratropium (Duoneb) 3 ml INHALATION Q4HWA.RT [facility] Last Admin: 04/26/19 11:21 Dose: 3 ml Documented by: Aspirin (Aspirin, Baby) 81 mg PO DAILY@0800 [facility] Last Admin: 04/26/19 08:15 Dose: 81 mg Documented by: Atorvastatin Calcium (Lipitor) 40 mg PO DAILY@2200 [facility] Last Admin: 04/25/19 21:29 Dose: 40 mg Documented by: Carvedilol (Coreg) 12.5 mg PO BID [facility] Last Admin: 04/26/19 10:30 Dose: 12.5 mg Documented by: Digoxin (Lanoxin) 250 mcg PO DAILY [facility] Last Admin: 04/26/19 10:30 Dose: 250 mcg Documented by: Enoxaparin Sodium (Lovenox) 40 mg SC DAILY [facility] Last Admin: 04/26/19 10:33 Dose: 40 mg Documented by: Furosemide (Lasix) 40 mg PO DAILY [facility] Last Admin: 04/26/19 10:30 Dose: 40 mg Documented by: Glucagon () 1 mg IM .X1 PRN PRN Reason: Hypoglycemia Sodium Chloride () 500 mls @ 999 mls/hr IV .Q31M ONE Last Infusion: 04/24/19 01:11 Dose: Infused Documented by: Dextrose (Dextrose 10%-Water) 250 mls @ 999 mls/hr IV .Q16M PRN; Protocol PRN Reason: HYPOGLYCEMIA Ceftriaxone Sodium 2 gm/ (Sodium Chloride) 50 mls @ 100 mls/hr IV Q24 [facility] Levothyroxine Sodium (Synthroid) 25 mcg PO DAILY@0600 [facility] Last Admin: 04/26/19 05:51 Dose: 25 mcg Documented by: Losartan Potassium (Cozaar) 50 mg PO DAILY [facility] Last Admin: 04/26/19 10:30 Dose: 50 mg Documented by: Magnesium Hydroxide (Milk Of Magnesia) 30 ml PO BID [facility] Melatonin (Melatonin) 3 mg PO QHS PRN PRN PRN Reason: INSOMNIA Last Admin: 04/25/19 21:34 Dose: 3 mg Documented by: Methylprednisolone (Solu-Medrol) 40 mg IV Q8 [facility] Last Admin: 04/26/19 05:51 Dose: 40 mg Documented by: Paroxetine HCl (Paxil) 40 mg PO DAILY [facility] Last Admin: 04/26/19 10:30 Dose: 40 mg Documented by: Polyethylene Glycol (Miralax) 17 gm PO DAILY [facility] Last Admin: 04/26/19 10:28 Dose: 17 gm Documented by: Senna/Docusate Sodium (Senokot-S, Inessa-Colace) 1 tablet PO DAILY [facility] Sodium Chloride () 10 - 40 ml IV UD PRN PRN Reason: SALINE FLUSH Last Admin: 04/26/19 05:51 Dose: 10 ml Documented by: Spironolactone (Aldactone) 25 mg PO DAILY [facility] Last Admin: 04/26/19 10:30 Dose: 25 mg Documented by: Tamsulosin HCl (Flomax) 0.4 mg PO QHS [facility] Last Admin: 04/25/19 21:29 Dose: 0.4 mg Documented by: Tramadol HCl (Ultram) 50 mg PO Q6H PRN PRN PRN Reason: Pain Score 4-11/25 Last Admin: 04/26/19 11:33 Dose: 50 mg Documented by: STROKE Vital Signs/Narrative: Vital Signs Temp Pulse Resp BP Pulse Ox 04/26/19 11:21 89 20 H 04/26/19 10:15 98.7 F 89 18 135/48 H 92 Assessment/Plan This patient was seen in conjunction with Chau Judd PA-C . I have independently interviewed and examined the patient and reviewed pertinent historical, laboratory, and other data. Please refer to Chau Judd PA-C note for details of this patient's presentation, findings, and recommendations. I have reviewed Chau Judd PA-C note and concur with documented findings. In brief, patient is a 58-year-old lady with past medical history single for COPD who presented with progressive shortness of breath was meant of COPD with acute exacerbation made admitted to a monitored bed for subsequent management 04/26/2019: Patient blood cultures came back positive for E. coli. Etiology undetermined. Consult placed to infectious disease as a result Physical Examination: GENERAL: cooperative HEENT: Atraumatic; EYES; Anicteric, Normal Conjunctiva NECK; supple, normal thyroid, RESPIRATORY: Diminished to auscultation CARDIOVASCULAR: Regular S1 S2, GI: soft, normoactive bowel sounds, : No Renal angle tenderness; EXTREMITIES: No edema, no clubbing, MUSCULOSKELETAL: no muscle waisting NEURO: Awake; no lateralizing signs. SKIN: No Rash PSYCH; Flat affect Assessment: 1. COPD with acute exacerbation 2. E. coli bacteremia 3. Hypertension 4. Hypothyroidism 5. History of Takotsubo cardiomyopathy 6. Cardiomyopathy 7. Depression with anxiety 8. Constipation 9. Acute mechanical fall with right hip pain Recommendations: 1. I have discussed the results of my overview and impressions with the patient 2. Options for management were reviewed Inpatient E&M: 00607 Subs Hosp L3
--- NOTE | 2019-04-26 19:07 | CON.PCM_ITS ---
Problem List (1) Bacteremia Status: Acute Reason for Consult: bacteremia Consulted by: Dr. Serrato History of Present Illness: The patient is a 58 year old F who presented with several days of weakness, constipation, not feeling well. Had fall at home, came to ED. Denies fever, chills, dysuria, urine changes. No blood in stool. Some abd pain/cramping with constipation. No cough, did c/o some mild dyspnea. Came to ED, admitted on doxy/ceftriaxone. Feeling better but still constipated. Full ROS performed and neg except as noted above. - Medical History Past Medical History (Chronic Problems): Chronic Problems (Last Reviewed 04/24/19 @ 01:[address] Nicanor Chou MD) COPD (chronic obstructive pulmonary disease) (Chronic) COPD exacerbation (Chronic) Essential hypertension (Chronic) Elevated LFTs (Chronic) Hepatitis A (Chronic) RBBB (right bundle branch block) (Chronic) Hyperlipidemia (Chronic) Cardiomyopathy, dilated (Chronic) Nonrheumatic mitral valve regurgitation (Chronic) Chronic systolic congestive heart failure (Chronic) Biventricular automatic implantable cardioverter defibrillator in situ (Chronic ~01/05/15) RV lead implantation complicated by tamponade -pericardiocentesis done 01/05/15 Atherosclerotic heart disease of [place] coronary artery without angina pectoris (Chronic) Ventricular tachycardia (Chronic) Allergies/Adverse Reactions: Allergies hydrocodone bitartrate [From Vicodin] Allergy (Verified 04/23/19 21:36) Hives Penicillins Allergy (Verified 04/23/19 21:36) Anaphylaxis Home Medications: Ambulatory Orders Medication Instructions Recorded Losartan Potassium [Cozaar] 50 mg PO DAILY 04/16/15 Spironolactone [Aldactone] 25 mg PO DAILY 04/16/15 albuterol sulfate 90 mcg/actuation 2 puff INHALATION Q4H PRN 06/30/17 aerosol inhaler atorvastatin 40 mg tablet 40 mg PO QDAY 06/30/17 carvedilol 12.5 mg tablet 12.5 mg PO BID 06/30/17 Levothyroxine [Synthroid] 25 mcg PO DAILY 12/10/17 Paroxetine HCl [Paxil] 40 mg PO DAILY 12/10/17 Tamsulosin HCl [Flomax] 0.4 mg PO QHS 12/10/17 Budesonide/Formoterol 160/4.5 2 puff INHALATION BID 03/01/19 [Symbicort 160/4.5 Mcg Inhaler (SP)] Digoxin [Lanoxin] 250 mcg PO DAILY 03/01/19 Albuterol Aerosols [Ventolin 2.5 mg INHALATION Q4H PRN PRN #1 03/10/19 Aerosols] Aspirin [Aspirin, Baby] 81 mg PO DAILY@0800 #90 tab.chew 03/10/19 Furosemide [Lasix] 40 mg PO DAILY #90 tab 03/10/19 Home Oxygen 3 lpm INHALATION CONT #0 03/10/19 Ipratropium/Albuterol Sulfate 3 ml INHALATION [id number] #40 03/10/19 [Duoneb] ampul.neb Prednisone 10 mg PO DAILY #75 tab 03/10/19 - Social History SMOKING STATUS:: Former smoker Vital Signs Temp Pulse Resp BP Pulse Ox 98.5 F 74 18 118/72 97 04/26/19 20:38 04/26/19 20:38 04/26/19 20:38 04/26/19 20:38 04/26/19 20:38 Oxygen Flow Rate (L/min) 3 Oxygen Delivery Method Nasal Cannula Weight: 67.2 kg Body Mass Index (BMI) 28.9 Microbiology Past 72 Hours 04/24/19 17:56 Urine Culture - Final Urine, Clean Catch Mixed Gram Positive Organisms 04/23/19 23:05 Blood Culture - Preliminary Blood Culture (Wb) #2 - Anticubital Left Presumptive E. coli 04/23/19 21:40 Blood Culture - Preliminary Blood Culture (Wb) - Anticubital Right Escherichia coli 04/23/19 22:00 Influenza Types A,B Direct FA (ANGEELS) - Final Mucosa - Nose - Other Studies Radiology: [] reviewed Other Studies: [] Route of nutrition/ use of supplements: [] Nutritional Intake: [] IV Site: [] Mehta Catheter: [] - Physical Exam General: Alert, Oriented x3, Cooperative, No apparent distress HEENT: Atraumatic, PERRLA, EOMI Neck: Supple, No Nodes Lungs: Clear to auscultation, Normal air movement Cardiovascular: Regular rate, Regular Rhythm Abdomen: Soft, Non Tender, Non-Distended Extremities: No edema Skin: No rashes IV Site: Peripheral, without redness Musculoskeletal: No Tenderness to Palpation of Joints or Extremities Neurological: Cranial nerves II-XII grossly intact - Assessment/Plan Antibiotics: [] Assessment/Plan: [] Active and Suspected Problems (Last Reviewed 04/24/19 @ 01:[address] Nicanor Chou MD) COPD exacerbation (Acute) ecoli bacteremia - UA neg, no dysuria, lungs sound clear. CT abd/pelvis showed no clear sign of infection. Possible source is bacterial gut translocation related to her constipation. H/o anaphylaxis with PCN, tolerating ceftriaxone without issue. Plan will be for discharge on po omnicef 300mg bid with stop date 05/03/19. Will follow, thank you, d/w primary team.
[2019-04-26] MEDS: MELATONIN 3 MG TABLET PO (21:18)
[2019-04-26] MEDS: Tamsulosin HCl 0.4 MG Capsule PO (21:18)
[2019-04-26] MEDS: Magnesium Hydroxide 30 ML UDC PO (21:18)
[2019-04-26] MEDS: Atorvastatin Calcium 40 MG Tablet PO (21:19)
[2019-04-27] VITALS (8 sets, daily range): BP systolic 128–152; BP diastolic 55–80; PULSE 60–87; RESP 18–22; TEMP 36.3–36.7; O2SAT 91–99
[2019-04-27] MEDS: 0.9% Saline Lock 10 ML Syringe IV ×4 (05:52→21:34)
[2019-04-27] MEDS: Levothyroxine 25 MCG TABLET PO (05:52)
[2019-04-27] MEDS: Acetaminophen 500 MG Tablet 1000 MG PO ×3 (05:52→23:27)
[2019-04-27 06:26] LABS: Absolute Lymphocyte Count 1.39 X10^3/uL (0.83-4.51); Basophil# 0.01 X10^3/uL; Basophil% 0.1 % (0-1); Hematocrit 34.7 % (37-47); Lymphocyte # 1.39 X10^3/ul (4.0); Mean Corp Hgb Conc 31.7 g/dL (32-36); Mean Corpuscular Hgb 27.5 pg (27.0-32.0); Mean Corpuscular Volume 86.8 fL (81-99); Mean Platelet Vol. 8.8 fl (6.2-12.0); Monocyte# 0.28 X10^3/uL; Monocyte% 3.2 % (0-10); NRBC Flagged by Analyzer 0 % (0-5); Neutrophil # 6.97 X10^3/uL (2.7-7.7); Platelet Count 286 K/mm3 (150-450); RBC Distribution Width CV 12.8 % (11.6-14.6); RBC Distribution Width SD 40.6 fl (35.1-43.9); White Blood Count 8.7 K/mm3 (4.4-11.0)
[2019-04-27 06:56] LABS: ALB/GLOB Ratio 0.7 RATIO (0.9-2.4); AST(SGOT) 12 U/L (15-37); Alanine Aminotransfer ALT/SGPT 25 U/L (13-56); Albumin, Serum 2.6 g/dL (3.2-5.0); Alkaline Phosphatase 67 U/L (45-117); Anion Gap 4 (5-15); BUN 24 mg/dL (7-18); BUN/Creat Ratio 39.1 RATIO (10-20); Calcium,Total 8.7 mg/dL (8.5-10.1); Chloride 96 mmol/L (98-107); Creatinine, Serum 0.61 mg/dL (0.55-1.02); EST Glomerular Filtration Rate 105 mL/min (>60); Est Glom Filt Rate - Afr Amer 127 mL/min (>60); Estimated Creatinine Clearance 70.45 ml/min; Globulin 3.6 g/dL (2.2-4.2); Glucose 258 mg/dL (74-106); Potassium 4.5 mmol/L (3.5-5.1); Protein, Total 6.2 g/dL (6.4-8.2); Sodium Level 137 mmol/L (136-145)
[2019-04-27] MEDS: Ipratropium/Albuterol Sulfate 3 ML AMPUL.NEB INHALATION ×4 (07:03→19:07)
[2019-04-27] MEDS: traMADol 50 MG Tablet PO ×3 (08:11→21:34)
[2019-04-27] MEDS: Aspirin 81 MG TAB.CHEW PO (08:12)
--- NOTE | 2019-04-27 10:00 | PCM.PN.PUL ---
Subjective: The patient was seen and examined at the bedside this morning. Events from the last 24 hours have been reviewed. The patient is currently afebrile, hemodynamically stable and maintaining appropriate oxygen saturations on 3 L/min via nasal cannula. Breathing quality is at baseline per patient. Objective: The patient's most recent lab work, culture data and imaging studies have all been personally reviewed. Blood cultures were positive for E. coli. - Physical Exam Vitals/I&O's: Vital Signs Temp Pulse Resp BP Pulse Ox 98.1 F 78 20 H 130/65 H 96 04/27/19 02:10 04/27/19 07:03 04/27/19 07:03 04/27/19 02:10 04/27/19 07:03 Oxygen Flow Rate (L/min) 3 Oxygen Delivery Method Nasal Cannula Weight: 148 lb 2.41 oz Body Mass Index (BMI) 28.9 Intake and Output for Last 24 Hours 04/25/19 04/26/19 04/27/19 23:59 23:59 23:59 Intake Total 1390 / 1690 930 / 930 Output Total 400 / 900 500 / 500 Balance 1390 / 1690 530 / 30 -500 / -500 General: Alert, Cooperative, No apparent distress HEENT: Atraumatic, Normocephalic Oral: No Gingival or Mucosal Lesions/ Ulcerations Neck: Supple, No Nodes, Trachea Midline Lungs: Diminished Cardiovascular: Regular rate, Regular Rhythm, Normal S1, Normal S2 Abdomen: Bowel Sounds Present, Soft, Non Tender Extremities: No clubbing, No cyanosis, No edema Skin: No breakdown Musculoskeletal: No Tenderness to Palpation of Joints or Extremities Lymphatic: No Cervical, Supraclavicular, or Inguinal Adenopathy Neurological: Neuro grossly intact Psych/Mental Status: Normal Affect, Appropriate Labs (Last 48 Hours) 04/27/19 04/27/19 05:45 05:45 WBC 8.7 RBC 4.00 L Hgb 11.0 L Hct 34.7 L MCV 86.8 MCH 27.5 MCHC 31.7 L RDW Std Deviation 40.6 RDW Coeff of Siobhan 12.8 Plt Count 286 MPV 8.8 Immature Gran % (Auto) 0.700 Neut % (Auto) 80.0 H Lymph % (Auto) 16.0 L [place] % (Auto) 3.2 Eos % (Auto) 0.0 Baso % (Auto) 0.1 Absolute Neuts (auto) 7.0 Absolute Lymphs (auto) 1.39 Nucleated RBC % 0 Sodium 137 Potassium 4.5 Chloride 96 L Carbon Dioxide 37.0 H Anion Gap 4 L BUN 24 H Creatinine 0.61 Estim Creat Clear Calc 70.45 Est GFR (MDRD) Af Amer 127 Est GFR (MDRD) Non-Af 105 BUN/Creatinine Ratio 39.1 H Glucose 258 H Calcium 8.7 Total Bilirubin 0.20 AST 12 L ALT 25 Alkaline Phosphatase 67 Total Protein 6.2 L Albumin 2.6 L Globulin 3.6 Albumin/Globulin Ratio 0.7 L Microbiology 04/24/19 17:56 Urine, Clean Catch Urine Culture - Final Mixed Gram Positive Organisms 04/23/19 23:05 Blood Culture (Wb) #2 - Anticubital Left Blood Culture - Preliminary Presumptive E. coli 04/23/19 21:40 Blood Culture (Wb) - Anticubital Right Blood Culture - Preliminary Escherichia coli Clinical Impression(s) from Imaging Studies Chest X-Ray 04/23/19 22:21 IMPRESSION: Chronic interestitial changes. No radiographic evidence of acute cardiopulmonary disease. at 2321 Reported and signed by: Jaswant Castañeda MD Electronically Signed: Jaswant Castañeda MD at 23:20 EST Tel , Service support , Lumbar Spine X-Ray 04/23/19 22:21 IMPRESSION: No acute lumbar spine fracture or subluxation. at 2325 Reported and signed by: Jaswant Castañeda MD Electronically Signed: Jaswant Castañeda MD at 23:24 EST Tel , Service support , Abdomen/Pelvis CT 04/26/19 10:57 IMPRESSION: Focal left lower lobe infiltrate. Electronically Signed: Khurram Recio, at 14:31 EDT , Service support , Renal Ultrasound 04/26/19 10:58 IMPRESSION: Normal ultrasound of the kidneys and urinary bladder. Electronically Signed: Mango Keene MD at 17:12 EDT , Service support , Current Medications Acetaminophen (Tylenol) 1,000 mg PO Q6 [facility] Last Admin: 04/27/19 05:52 Dose: 1,000 mg Documented by: Albuterol Sulfate (Ventolin Aerosols) 2.5 mg INHALATION Q2H PRN PRN PRN Reason: SOB/Wheezing Albuterol/Ipratropium (Duoneb) 3 ml INHALATION Q4HWA.RT [facility] Last Admin: 04/27/19 07:03 Dose: 3 ml Documented by: Aspirin (Aspirin, Baby) 81 mg PO DAILY@0800 [facility] Last Admin: 04/27/19 08:12 Dose: 81 mg Documented by: Atorvastatin Calcium (Lipitor) 40 mg PO DAILY@2200 [facility] Last Admin: 04/26/19 21:19 Dose: 40 mg Documented by: Carvedilol (Coreg) 12.5 mg PO BID [facility] Last Admin: 04/26/19 21:18 Dose: 12.5 mg Documented by: Digoxin (Lanoxin) 250 mcg PO DAILY [facility] Last Admin: 04/26/19 10:30 Dose: 250 mcg Documented by: Enoxaparin Sodium (Lovenox) 40 mg SC DAILY [facility] Last Admin: 04/26/19 10:33 Dose: 40 mg Documented by: Furosemide (Lasix) 40 mg PO DAILY [facility] Last Admin: 04/26/19 10:30 Dose: 40 mg Documented by: Glucagon () 1 mg IM .X1 PRN PRN Reason: Hypoglycemia Sodium Chloride () 500 mls @ 999 mls/hr IV .Q31M ONE Last Infusion: 04/24/19 01:11 Dose: Infused Documented by: Dextrose (Dextrose 10%-Water) 250 mls @ 999 mls/hr IV .Q16M PRN; Protocol PRN Reason: HYPOGLYCEMIA Ceftriaxone Sodium 2 gm/ (Sodium Chloride) 50 mls @ 100 mls/hr IV Q24 [facility] Levothyroxine Sodium (Synthroid) 25 mcg PO DAILY@0600 [facility] Last Admin: 04/27/19 05:52 Dose: 25 mcg Documented by: Losartan Potassium (Cozaar) 50 mg PO DAILY [facility] Last Admin: 04/26/19 10:30 Dose: 50 mg Documented by: Magnesium Hydroxide (Milk Of Magnesia) 30 ml PO BID [facility] Last Admin: 04/26/19 21:18 Dose: 30 ml Documented by: Melatonin (Melatonin) 3 mg PO QHS PRN PRN PRN Reason: INSOMNIA Last Admin: 04/26/19 21:18 Dose: 3 mg Documented by: Methylprednisolone (Solu-Medrol) 40 mg IV Q8 [facility] Last Admin: 04/27/19 05:52 Dose: 40 mg Documented by: Paroxetine HCl (Paxil) 40 mg PO DAILY [facility] Last Admin: 04/26/19 10:30 Dose: 40 mg Documented by: Polyethylene Glycol (Miralax) 17 gm PO DAILY [facility] Last Admin: 04/26/19 10:28 Dose: 17 gm Documented by: Senna/Docusate Sodium (Senokot-S, Inessa-Colace) 1 tablet PO DAILY [facility] Sodium Chloride () 10 - 40 ml IV UD PRN PRN Reason: SALINE FLUSH Last Admin: 04/27/19 05:52 Dose: 10 ml Documented by: Spironolactone (Aldactone) 25 mg PO DAILY [facility] Last Admin: 04/26/19 10:30 Dose: 25 mg Documented by: Tamsulosin HCl (Flomax) 0.4 mg PO QHS [facility] Last Admin: 04/26/19 21:18 Dose: 0.4 mg Documented by: Tramadol HCl (Ultram) 50 mg PO Q6H PRN PRN PRN Reason: Pain Score 4-10/10 Last Admin: 04/27/19 08:11 Dose: 50 mg Documented by: Medical Necessity - Tobacco Use Smoking Status: Former smoker Assessment/Plan All Active Problems (Last Reviewed 04/24/19 @ 01:[address] Nicanor Chou MD) Bacteremia (Acute) Acute and chronic respiratory failure with hypoxia (Acute) COPD exacerbation (Acute) RECOMMENDATIONS: 1. Continue antibiotics, bronchodilators and steroids. Recommend 7-day treatment course of antibiotics. 2. Wean supplemental oxygen as tolerated. 3. Encourage incentive spirometer use and mobilize patient as tolerated. 4. Perform walking oximetry study prior to consideration for discharge home. 5. The patient should follow-up in the pulmonary medicine clinic within 2 weeks of her discharge from the hospital. IMPRESSIONS: 1. COPD with exacerbation [place] to be secondary to left lower lobe infiltrate identified on CT abdomen/pelvis. Agree with continuing antibiotics, bronchodilators and steroids. Breathing quality is approaching baseline. The patient has a baseline 3 L/min supplemental oxygen requirement. She undoubtedly needs to follow-up in the pulmonary medicine clinic and needs to complete pulmonary function studies along with a formal 6-minute walk test which are currently scheduled for later this week and next week. Once pulmonary function studies are completed, the patient would likely be a good candidate for the initiation of noninvasive ventilatory support in her home environment, given her chronic CO2 retention. 2. E. coli bacteremia CT abdomen/pelvis showed no intra-abdominal pathology. Infectious diseases is currently following. Continue antibiotics per recommendations. 3. Hypertension/hypothyroidism/hyperlipidemia/chronic pain syndrome Complicates care, management, recovery and prognosis. Continue home medications as indicated. This note was generated with [employer] dictation software. It may contain incorrect words, spelling, and punctuation that were not noted in checking the note before signing. Inpatient E&M: 26993 Subs Hosp L2
[2019-04-27] MEDS: Carvedilol 12.5 MG Tablet PO ×2 (10:18→21:34)
[2019-04-27] MEDS: Spironolactone 25 MG Tablet PO (10:18)
[2019-04-27] MEDS: Digoxin 250 MCG Tablet PO (10:18)
[2019-04-27] MEDS: Losartan Potassium 50 MG Tablet PO (10:18)
[2019-04-27] MEDS: Furosemide 40 MG Tablet PO (10:19)
[2019-04-27] MEDS: Enoxaparin 40 MG/0.4 ML Syringe SC (10:19)
[2019-04-27] MEDS: Paroxetine 20 MG Tablet 40 MG PO (10:20)
[2019-04-27] MEDS: Polyethylene Glycol 3350 17 GM PACKET PO (10:23)
[2019-04-27] MEDS: Magnesium Hydroxide 30 ML UDC PO ×2 (10:23→21:33)
--- NOTE | 2019-04-27 12:17 | PCM.PN.HOSP ---
<Chau Judd - Last Filed: 04/27/19 12:17> Patient Problems: Active and Suspected Problems (Last Reviewed 04/24/19 @ 01:[address] Nicanor Chou MD) Bacteremia (Acute) COPD exacerbation (Acute) Reason for Visit: SOB Subjective: Breathing improved. At baseline O2, no sob this am. wheezing resolved. nonproductive cough. No fever/chills. Constipation is improving with daily laxatives. Abd pain resolved. Vitals/I&O's: Vital Signs Temp Pulse Resp BP Pulse Ox 98.1 F 82 20 H 152/55 H 91 04/27/19 10:08 04/27/19 10:56 04/27/19 10:56 04/27/19 10:08 04/27/19 10:08 Oxygen Flow Rate (L/min) 3 Oxygen Delivery Method Nasal Cannula Weight: 148 lb 2.41 oz Body Mass Index (BMI) 28.9 Intake and Output for Last 24 Hours 04/25/19 04/26/19 04/27/19 23:59 23:59 23:59 Intake Total 1390 / 1690 930 / 930 50 / 50 Output Total 400 / 900 500 / 500 Balance 1390 / 1690 530 / 30 -450 / -450 General: Alert, Oriented x3, Cooperative HEENT: Atraumatic, PERRLA, EOMI, Normocephalic Neck: Supple, No JVD, Negative Carotid Bruits Lungs: Clear to auscultation, Diminished Cardiovascular: Regular rate, No murmurs Abdomen: Bowel Sounds Present, Soft, Non Tender Extremities: No edema, Capillary Refill Less than 3 Seconds Skin: No rashes, No breakdown Musculoskeletal: No Tenderness to Palpation of Joints or Extremities Neurological: Cranial nerves II-XII grossly intact Psych/Mental Status: Normal Affect, Appropriate, Alert and oriented to time, place, person, mood and affect Microbiology Past 72 Hours 04/24/19 17:56 Urine, Clean Catch Urine Culture - Final Mixed Gram Positive Organisms 04/23/19 23:05 Blood Culture (Wb) #2 - Anticubital Left Blood Culture - Preliminary Presumptive E. coli 04/23/19 21:40 Blood Culture (Wb) - Anticubital Right Blood Culture - Preliminary Escherichia coli Laboratory Results 04/27/19 05:45: WBC 8.7, RBC 4.00 L, Hgb 11.0 L, Hct 34.7 L, MCV 86.8, MCH 27.5, MCHC 31.7 L, RDW Std Deviation 40.6, RDW Coeff of Siobhan 12.8, Plt Count 286, MPV 8.8, Immature Gran % (Auto) 0.700, Neut % (Auto) 80.0 H, Lymph % (Auto) 16.0 L, [place] % (Auto) 3.2, Eos % (Auto) 0.0, Baso % (Auto) 0.1, Absolute Neuts (auto) 7.0, Absolute Lymphs (auto) 1.39, Nucleated RBC % 0 04/27/19 05:45: Sodium 137, Potassium 4.5, Chloride 96 L, Carbon Dioxide 37.0 H, Anion Gap 4 L, BUN 24 H, Creatinine 0.61, Estim Creat Clear Calc 70.45, Est GFR (MDRD) Af Amer 127, Est GFR (MDRD) Non-Af 105, BUN/Creatinine Ratio 39.1 H, Glucose 258 H, Calcium 8.7, Total Bilirubin 0.20, AST 12 L, ALT 25, Alkaline Phosphatase 67, Total Protein 6.2 L, Albumin 2.6 L, Globulin 3.6, Albumin/Globulin Ratio 0.7 L Current Medications Acetaminophen (Tylenol) 1,000 mg PO Q6 [facility] Last Admin: 04/27/19 05:52 Dose: 1,000 mg Documented by: Albuterol Sulfate (Ventolin Aerosols) 2.5 mg INHALATION Q2H PRN PRN PRN Reason: SOB/Wheezing Albuterol/Ipratropium (Duoneb) 3 ml INHALATION Q4HWA.RT [facility] Last Admin: 04/27/19 10:56 Dose: 3 ml Documented by: Aspirin (Aspirin, Baby) 81 mg PO DAILY@0800 [facility] Last Admin: 04/27/19 08:12 Dose: 81 mg Documented by: Atorvastatin Calcium (Lipitor) 40 mg PO DAILY@2200 [facility] Last Admin: 04/26/19 21:19 Dose: 40 mg Documented by: Carvedilol (Coreg) 12.5 mg PO BID [facility] Last Admin: 04/27/19 10:18 Dose: 12.5 mg Documented by: Digoxin (Lanoxin) 250 mcg PO DAILY [facility] Last Admin: 04/27/19 10:18 Dose: 250 mcg Documented by: Enoxaparin Sodium (Lovenox) 40 mg SC DAILY [facility] Last Admin: 04/27/19 10:19 Dose: 40 mg Documented by: Furosemide (Lasix) 40 mg PO DAILY [facility] Last Admin: 04/27/19 10:19 Dose: 40 mg Documented by: Glucagon () 1 mg IM .X1 PRN PRN Reason: Hypoglycemia Sodium Chloride () 500 mls @ 999 mls/hr IV .Q31M ONE Last Infusion: 04/24/19 01:11 Dose: Infused Documented by: Dextrose (Dextrose 10%-Water) 250 mls @ 999 mls/hr IV .Q16M PRN; Protocol PRN Reason: HYPOGLYCEMIA Ceftriaxone Sodium 2 gm/ (Sodium Chloride) 50 mls @ 100 mls/hr IV Q24 [facility] Last Infusion: 04/27/19 11:32 Dose: Infused Documented by: Levothyroxine Sodium (Synthroid) 25 mcg PO DAILY@0600 [facility] Last Admin: 04/27/19 05:52 Dose: 25 mcg Documented by: Losartan Potassium (Cozaar) 50 mg PO DAILY [facility] Last Admin: 04/27/19 10:18 Dose: 50 mg Documented by: Magnesium Hydroxide (Milk Of Magnesia) 30 ml PO BID [facility] Last Admin: 04/27/19 10:23 Dose: 30 ml Documented by: Melatonin (Melatonin) 3 mg PO QHS PRN PRN PRN Reason: INSOMNIA Last Admin: 04/26/19 21:18 Dose: 3 mg Documented by: Methylprednisolone (Solu-Medrol) 40 mg IV Q8 [facility] Last Admin: 04/27/19 05:52 Dose: 40 mg Documented by: Paroxetine HCl (Paxil) 40 mg PO DAILY [facility] Last Admin: 04/27/19 10:20 Dose: 40 mg Documented by: Polyethylene Glycol (Miralax) 17 gm PO DAILY [facility] Last Admin: 04/27/19 10:23 Dose: 17 gm Documented by: Senna/Docusate Sodium (Senokot-S, Inessa-Colace) 1 tablet PO DAILY [facility] Last Admin: 04/27/19 10:21 Dose: Not Given Documented by: Sodium Chloride () 10 - 40 ml IV UD PRN PRN Reason: SALINE FLUSH Last Admin: 04/27/19 10:17 Dose: 10 ml Documented by: Spironolactone (Aldactone) 25 mg PO DAILY [facility] Last Admin: 04/27/19 10:18 Dose: 25 mg Documented by: Tamsulosin HCl (Flomax) 0.4 mg PO QHS [facility] Last Admin: 04/26/19 21:18 Dose: 0.4 mg Documented by: Tramadol HCl (Ultram) 50 mg PO Q6H PRN PRN PRN Reason: Pain Score 4-10 Last Admin: 04/27/19 08:11 Dose: 50 mg Documented by: STROKE Vital Signs/Narrative: Vital Signs Temp Pulse Resp BP Pulse Ox 04/27/19 10:56 82 20 H 04/27/19 10:08 98.1 F 87 20 H 152/55 H 91 Medical Necessity - Tobacco Use Smoking Status: Former smoker Assessment/Plan All Active Problems (Last Reviewed 04/24/19 @ 01:[address] Nicanor Chou MD) Bacteremia (Acute) Acute and chronic respiratory failure with hypoxia (Acute) COPD exacerbation (Acute) 1. E coli bacteremia - unclear etiology - UA neg. Obtain ct abdomen, renal US. rocephin to 2g, e coli with resistance only to amp. mild wbc elevation at admission, now normal, no fever. LA 1.3 at admission. ID plan is for ceftriaxone then to cefdinir at dc. ? gut translocation. CT abd with significant stool. Renal US neg. Repeat UA/Blood cx today. 2. COPD exacerbation - resolving. at baseline o2. (3lpm at home). Plan to taper steroids, follow up with pulm as o/p. 3. Severe osteoarthritis, chronic pain in palliative care - recently off methadone due to lethargy. will trial ultram. continue PTOT> 4. HTN - stable 5. Hypothyroidism - synthroid 6. Hx Takotsubo CM - no cp, trop neg. Has ICD. 7. Depression / Anx - paxil 8. Chronic constipation - Continue scheduled daily MoM/sennokot. improved. 9. Hx Hepatitis A - cmp with no significant lft abnormalities. DVT ppx: lovenox DC planning: PTOT This patient was seen by Chau Judd PA-C under the supervision of Doctor Rojelio. <Rao Serrato - Last Filed: 04/27/19 15:46> Vitals/I&O's: Vital Signs Temp Pulse Resp BP Pulse Ox 97.4 F L 85 20 H 148/58 H 95 04/27/19 14:51 04/27/19 15:03 04/27/19 15:03 04/27/19 14:51 04/27/19 14:51 Oxygen Flow Rate (L/min) 3 Oxygen Delivery Method Nasal Cannula Weight: 67.2 kg Body Mass Index (BMI) 28.9 Intake and Output for Last 24 Hours 04/25/19 04/26/19 04/27/19 23:59 23:59 23:59 Intake Total 1390 / 1690 930 / 930 50 / 50 Output Total 400 / 900 500 / 500 Balance 1390 / 1690 530 / 30 -450 / -450 Microbiology Past 72 Hours 04/24/19 17:56 Urine, Clean Catch Urine Culture - Final Mixed Gram Positive Organisms 04/23/19 23:05 Blood Culture (Wb) #2 - Anticubital Left Blood Culture - Preliminary Presumptive E. coli 04/23/19 21:40 Blood Culture (Wb) - Anticubital Right Blood Culture - Preliminary Escherichia coli Laboratory Results 04/27/19 05:45: WBC 8.7, RBC 4.00 L, Hgb 11.0 L, Hct 34.7 L, MCV 86.8, MCH 27.5, MCHC 31.7 L, RDW Std Deviation 40.6, RDW Coeff of [place]obhan 12.8, Plt Count 286, MPV 8.8, Immature Gran % (Auto) 0.700, Neut % (Auto) 80.0 H, Lymph % (Auto) 16.0 L, [place] % (Auto) 3.2, Eos % (Auto) 0.0, Baso % (Auto) 0.1, Absolute Neuts (auto) 7.0, Absolute Lymphs (auto) 1.39, Nucleated RBC % 0 04/27/19 05:45: Sodium 137, Potassium 4.5, Chloride 96 L, Carbon Dioxide 37.0 H, Anion Gap 4 L, BUN 24 H, Creatinine 0.61, Estim Creat Clear Calc 70.45, Est GFR (MDRD) Af Amer 127, Est GFR (MDRD) Non-Af 105, BUN/Creatinine Ratio 39.1 H, Glucose 258 H, Calcium 8.7, Total Bilirubin 0.20, AST 12 L, ALT 25, Alkaline Phosphatase 67, Total Protein 6.2 L, Albumin 2.6 L, Globulin 3.6, Albumin/Globulin Ratio 0.7 L Current Medications Acetaminophen (Tylenol) 1,000 mg PO Q6 [facility] Last Admin: 04/27/19 13:28 Dose: 1,000 mg Documented by: Albuterol Sulfate (Ventolin Aerosols) 2.5 mg INHALATION Q2H PRN PRN PRN Reason: SOB/Wheezing Albuterol/Ipratropium (Duoneb) 3 ml INHALATION Q4HWA.RT [facility] Last Admin: 04/27/19 15:03 Dose: 3 ml Documented by: Aspirin (Aspirin, Baby) 81 mg PO DAILY@0800 [facility] Last Admin: 04/27/19 08:12 Dose: 81 mg Documented by: Atorvastatin Calcium (Lipitor) 40 mg PO DAILY@2200 [facility] Last Admin: 04/26/19 21:19 Dose: 40 mg Documented by: Carvedilol (Coreg) 12.5 mg PO BID [facility] Last Admin: 04/27/19 10:18 Dose: 12.5 mg Documented by: Digoxin (Lanoxin) 250 mcg PO DAILY [facility] Last Admin: 04/27/19 10:18 Dose: 250 mcg Documented by: Enoxaparin Sodium (Lovenox) 40 mg SC DAILY [facility] Last Admin: 04/27/19 10:19 Dose: 40 mg Documented by: Furosemide (Lasix) 40 mg PO DAILY [facility] Last Admin: 04/27/19 10:19 Dose: 40 mg Documented by: Glucagon () 1 mg IM .X1 PRN PRN Reason: Hypoglycemia Sodium Chloride () 500 mls @ 999 mls/hr IV .Q31M ONE Last Infusion: 04/24/19 01:11 Dose: Infused Documented by: Dextrose (Dextrose 10%-Water) 250 mls @ 999 mls/hr IV .Q16M PRN; Protocol PRN Reason: HYPOGLYCEMIA Ceftriaxone Sodium 2 gm/ (Sodium Chloride) 50 mls @ 100 mls/hr IV Q24 [facility] Last Infusion: 04/27/19 11:32 Dose: Infused Documented by: Levothyroxine Sodium (Synthroid) 25 mcg PO DAILY@0600 [facility] Last Admin: 04/27/19 05:52 Dose: 25 mcg Documented by: Losartan Potassium (Cozaar) 50 mg PO DAILY [facility] Last Admin: 04/27/19 10:18 Dose: 50 mg Documented by: Magnesium Hydroxide (Milk Of Magnesia) 30 ml PO BID [facility] Last Admin: 04/27/19 10:23 Dose: 30 ml Documented by: Melatonin (Melatonin) 3 mg PO QHS PRN PRN PRN Reason: INSOMNIA Last Admin: 04/26/19 21:18 Dose: 3 mg Documented by: Methylprednisolone (Solu-Medrol) 40 mg IV Q8 [facility] Last Admin: 04/27/19 13:46 Dose: 40 mg Documented by: Paroxetine HCl (Paxil) 40 mg PO DAILY [facility] Last Admin: 04/27/19 10:20 Dose: 40 mg Documented by: Polyethylene Glycol (Miralax) 17 gm PO DAILY [facility] Last Admin: 04/27/19 10:23 Dose: 17 gm Documented by: Senna/Docusate Sodium (Senokot-S, Inessa-Colace) 1 tablet PO DAILY [facility] Last Admin: 04/27/19 10:21 Dose: Not Given Documented by: Sodium Chloride () 10 - 40 ml IV UD PRN PRN Reason: SALINE FLUSH Last Admin: 04/27/19 13:46 Dose: 10 ml Documented by: Spironolactone (Aldactone) 25 mg PO DAILY [facility] Last Admin: 04/27/19 10:18 Dose: 25 mg Documented by: Tamsulosin HCl (Flomax) 0.4 mg PO QHS [facility] Last Admin: 04/26/19 21:18 Dose: 0.4 mg Documented by: Tramadol HCl (Ultram) 50 mg PO Q6H PRN PRN PRN Reason: Pain Score 4-10/10 Last Admin: 04/27/19 14:50 Dose: 50 mg Documented by: STROKE Vital Signs/Narrative: Vital Signs Temp Pulse Resp BP Pulse Ox 04/27/19 15:03 85 20 H 04/27/19 14:51 97.4 F L 73 20 H 148/58 H 95 Assessment/Plan This patient was seen in conjunction with Chau Judd PA-C . I have independently interviewed and examined the patient and reviewed pertinent historical, laboratory, and other data. Please refer to Chau Judd PA-C note for details of this patient's presentation, findings, and recommendations. I have reviewed Chau Judd PA-C note and concur with documented findings. In brief, patient is a 58-year-old lady with past medical history single for COPD who presented with progressive shortness of breath was meant of COPD with acute exacerbation made admitted to a monitored bed for subsequent management 04/26/2019: Patient blood cultures came back positive for E. coli. Etiology undetermined. Consult placed to infectious disease as a result 04/27/2019; repeat cultures ordered patient started on Rocephin. Patient was seen by Dr. Vivas with infectious diseases note and recommendations reviewed. Physical Examination: GENERAL: cooperative HEENT: Atraumatic; EYES; Anicteric, Normal Conjunctiva NECK; supple, normal thyroid, RESPIRATORY: Diminished to auscultation CARDIOVASCULAR: Regular S1 S2, GI: soft, normoactive bowel sounds, : No Renal angle tenderness; EXTREMITIES: No edema, no clubbing, MUSCULOSKELETAL: no muscle waisting NEURO: Awake; no lateralizing signs. SKIN: No Rash PSYCH; Flat affect Assessment: 1. COPD with acute exacerbation 2. E. coli bacteremia 3. Hypertension 4. Hypothyroidism 5. History of Takotsubo cardiomyopathy 6. Cardiomyopathy 7. Depression with anxiety 8. Constipation 9. Acute mechanical fall with right hip pain Recommendations: 1. I have discussed the results of my overview and impressions with the patient 2. Options for management were reviewed Inpatient E&M: 74077 Subs Hosp L2
[2019-04-27] MEDS: Atorvastatin Calcium 40 MG Tablet PO (21:34)
[2019-04-27] MEDS: Tamsulosin HCl 0.4 MG Capsule PO (21:34)
[2019-04-27] MEDS: MELATONIN 3 MG TABLET PO (23:27)
[2019-04-28 02:59] VITALS: BP 118/73; PULSE 60; RESP 20; TEMP 36.6; O2SAT 99
[2019-04-28] MEDS: 0.9% Saline Lock 10 ML Syringe IV ×3 (05:23→13:40)
[2019-04-28] MEDS: Acetaminophen 500 MG Tablet 1000 MG PO ×2 (05:23→12:36)
[2019-04-28] MEDS: Levothyroxine 25 MCG TABLET PO (05:23)
[2019-04-28] MEDS: traMADol 50 MG Tablet PO ×2 (06:38→12:37)
[2019-04-28 06:53] VITALS: PULSE 60; RESP 16; O2SAT 97
[2019-04-28] MEDS: Ipratropium/Albuterol Sulfate 3 ML AMPUL.NEB INHALATION ×2 (06:53→11:06)
[2019-04-28 09:00] VITALS: BP 116/82; PULSE 71; RESP 18; TEMP 36.9; O2SAT 92
[2019-04-28] MEDS: Losartan Potassium 50 MG Tablet PO (09:07)
[2019-04-28] MEDS: Spironolactone 25 MG Tablet PO (09:07)
[2019-04-28] MEDS: Magnesium Hydroxide 30 ML UDC PO (09:07)
[2019-04-28] MEDS: Paroxetine 20 MG Tablet 40 MG PO (09:07)
[2019-04-28] MEDS: Digoxin 250 MCG Tablet PO (09:07)
[2019-04-28] MEDS: Aspirin 81 MG TAB.CHEW PO (09:07)
[2019-04-28] MEDS: Polyethylene Glycol 3350 17 GM PACKET PO (09:07)
[2019-04-28] MEDS: Enoxaparin 40 MG/0.4 ML Syringe SC (09:08)
[2019-04-28] MEDS: Furosemide 40 MG Tablet PO (09:08)
[2019-04-28] MEDS: Carvedilol 12.5 MG Tablet PO (09:08)
[2019-04-28] MEDS: Senna/Docusate Sodium 1 Tablet PO (09:08)
--- NOTE | 2019-04-28 09:53 | PCM.PN.ID ---
Patient Problems: Active and Suspected Problems (Last Reviewed 04/24/19 @ 01:[address] Nicanor Chou MD) Bacteremia (Acute) COPD exacerbation (Acute) Subjective: Feeling better, breathing well but worse with activity. No fever. - Physical Exam Vitals/I&O's: Vital Signs Temp Pulse Resp BP Pulse Ox 98.5 F 71 18 116/82 H 92 04/28/19 09:00 04/28/19 09:00 04/28/19 09:00 04/28/19 09:00 04/28/19 09:00 Oxygen Flow Rate (L/min) 2.5 Oxygen Delivery Method Nasal Cannula Weight: 67.2 kg Body Mass Index (BMI) 28.9 Intake and Output for Last 24 Hours 04/26/19 04/27/19 04/28/19 23:59 23:59 23:59 Intake Total 930 / 930 550 / 550 Output Total 400 / 900 500 / 500 200 / 200 Balance 530 / 30 50 / 50 -200 / -200 General: Alert, Cooperative, No apparent distress Lungs: Diminished Cardiovascular: Regular rate, Regular Rhythm Abdomen: Soft, Non Tender, Non-Distended Skin: No rashes Microbiology Past 72 Hours 04/24/19 17:56 Urine, Clean Catch Urine Culture - Final Mixed Gram Positive Organisms 04/23/19 23:05 Blood Culture (Wb) #2 - Anticubital Left Blood Culture - Preliminary Presumptive E. coli 04/23/19 21:40 Blood Culture (Wb) - Anticubital Right Blood Culture - Preliminary Escherichia coli Current Medications Acetaminophen (Tylenol) 1,000 mg PO Q6 [facility] Last Admin: 04/28/19 05:23 Dose: 1,000 mg Documented by: Albuterol Sulfate (Ventolin Aerosols) 2.5 mg INHALATION Q2H PRN PRN PRN Reason: SOB/Wheezing Albuterol/Ipratropium (Duoneb) 3 ml INHALATION Q4HWA.RT [facility] Last Admin: 04/28/19 06:53 Dose: 3 ml Documented by: Aspirin (Aspirin, Baby) 81 mg PO DAILY@0800 [facility] Last Admin: 04/28/19 09:07 Dose: 81 mg Documented by: Atorvastatin Calcium (Lipitor) 40 mg PO DAILY@2200 [facility] Last Admin: 04/27/19 21:34 Dose: 40 mg Documented by: Carvedilol (Coreg) 12.5 mg PO BID [facility] Last Admin: 04/28/19 09:08 Dose: 12.5 mg Documented by: Digoxin (Lanoxin) 250 mcg PO DAILY [facility] Last Admin: 04/28/19 09:07 Dose: 250 mcg Documented by: Enoxaparin Sodium (Lovenox) 40 mg SC DAILY [facility] Last Admin: 04/28/19 09:08 Dose: 40 mg Documented by: Furosemide (Lasix) 40 mg PO DAILY [facility] Last Admin: 04/28/19 09:08 Dose: 40 mg Documented by: Glucagon () 1 mg IM .X1 PRN PRN Reason: Hypoglycemia Sodium Chloride () 500 mls @ 999 mls/hr IV .Q31M ONE Last Infusion: 04/24/19 01:11 Dose: Infused Documented by: Dextrose (Dextrose 10%-Water) 250 mls @ 999 mls/hr IV .Q16M PRN; Protocol PRN Reason: HYPOGLYCEMIA Ceftriaxone Sodium 2 gm/ (Sodium Chloride) 50 mls @ 100 mls/hr IV Q24 [facility] Last Admin: 04/28/19 09:17 Dose: 100 mls/hr Documented by: Levothyroxine Sodium (Synthroid) 25 mcg PO DAILY@0600 [facility] Last Admin: 04/28/19 05:23 Dose: 25 mcg Documented by: Losartan Potassium (Cozaar) 50 mg PO DAILY [facility] Last Admin: 04/28/19 09:07 Dose: 50 mg Documented by: Magnesium Hydroxide (Milk Of Magnesia) 30 ml PO BID [facility] Last Admin: 04/28/19 09:07 Dose: 30 ml Documented by: Melatonin (Melatonin) 3 mg PO QHS PRN PRN PRN Reason: INSOMNIA Last Admin: 04/27/19 23:27 Dose: 3 mg Documented by: Methylprednisolone (Solu-Medrol) 40 mg IV Q8 [facility] Last Admin: 04/28/19 05:23 Dose: 40 mg Documented by: Paroxetine HCl (Paxil) 40 mg PO DAILY [facility] Last Admin: 04/28/19 09:07 Dose: 40 mg Documented by: Polyethylene Glycol (Miralax) 17 gm PO DAILY [facility] Last Admin: 04/28/19 09:07 Dose: 17 gm Documented by: Senna/Docusate Sodium (Senokot-S, Inessa-Colace) 1 tablet PO DAILY [facility] Last Admin: 04/28/19 09:08 Dose: 1 tablet Documented by: Sodium Chloride () 10 - 40 ml IV UD PRN PRN Reason: SALINE FLUSH Last Admin: 04/28/19 09:20 Dose: 10 ml Documented by: Spironolactone (Aldactone) 25 mg PO DAILY [facility] Last Admin: 04/28/19 09:07 Dose: 25 mg Documented by: Tamsulosin HCl (Flomax) 0.4 mg PO QHS [facility] Last Admin: 04/27/19 21:34 Dose: 0.4 mg Documented by: Tramadol HCl (Ultram) 50 mg PO Q6H PRN PRN PRN Reason: Pain Score 4-10/10 Last Admin: 04/28/19 06:38 Dose: 50 mg Documented by: Medical Necessity - Tobacco Use Smoking Status: Former smoker Route of nutrition/ use of supplements: [] Nutritional Intake: [] IV Site: [] Mehta Catheter: [] - Assessment/Plan Antibiotics: [] Assessment/Plan: [] Active and Suspected Problems (Last Reviewed 04/24/19 @ 01:[address] Nicanor Chou MD) COPD exacerbation (Acute) ecoli bacteremia - UA neg, no dysuria, lungs sound clear. CT abd/pelvis showed no clear sign of infection. Possible source is bacterial gut translocation related to her constipation. Now having BM. H/o anaphylaxis with PCN, tolerating ceftriaxone without issue. Plan will be for discharge on po omnicef 300mg bid with stop date 05/03/19. Will follow
--- NOTE | 2019-04-28 10:29 | CASEMGMT ---
Addendum entered by Alecia Boo 04/28/19 13:20: Call to [facility] and message left regarding pt discharge at this time. Martha RESENDIZ CM Addendum entered by Alecia Boo 04/28/19 12:26: Per therapy, pt does not need any further therapy at this time. Per Bárbara RESENDIZ, pt is fine on 2.5liters at rest and her sats were fine on 3liters with ambulation. Pt states is on 3Liters at home. Pt voices no further questions/concerns/needs at this time. Martha RESENDIZ CM Original Note: This RN CM to room to discuss discharge plan with pt at this time. Pt states would like to go home but is willing to do whatever therapy recommends at this time whether it's SNF or HHC. Pt states that she does live with her daughter and daughter does not work but pt states does get very SOB with movement and has some weakness. PT has not seen pt yet today and pt states she will ask them their opinion. Pt left [facility] on 03/29/19 and was under the impression that C was set up but nobody ever came out/called. CM to follow for any further discharge planning/needs. Martha RESENDIZ CM
--- NOTE | 2019-04-28 10:50 | PN_ITS ---
Subjective: The patient was seen and examined at the bedside this morning. Events from the last 24 hours have been reviewed. The patient is currently afebrile, hemodynamically stable and maintaining appropriate oxygen saturations on 3 L/min via nasal cannula. Objective: The patient's most recent lab work, culture data and imaging studies have all been personally reviewed. Blood cultures were positive for E. coli. - Physical Exam Vitals/I&O's: Vital Signs Temp Pulse Resp BP Pulse Ox 98.5 F 71 18 116/82 H 92 04/28/19 09:00 04/28/19 09:00 04/28/19 09:00 04/28/19 09:00 04/28/19 09:00 Oxygen Flow Rate (L/min) 2.5 Oxygen Delivery Method Nasal Cannula Weight: 148 lb 2.41 oz Body Mass Index (BMI) 28.9 Intake and Output for Last 24 Hours 04/26/19 04/27/19 04/28/19 23:59 23:59 23:59 Intake Total 930 / 930 550 / 550 Output Total 400 / 900 500 / 500 200 / 200 Balance 530 / 30 50 / 50 -200 / -200 General: Alert, No apparent distress HEENT: Atraumatic, Normocephalic Oral: No Gingival or Mucosal Lesions/ Ulcerations Neck: Supple, No Nodes, Trachea Midline Lungs: No rhonchi, No wheeze, No rales, Diminished Cardiovascular: Regular rate, Regular Rhythm, Normal S1, Normal S2 Abdomen: Bowel Sounds Present, Soft, Non Tender Extremities: No clubbing, No cyanosis, No edema Skin: No breakdown Musculoskeletal: No Tenderness to Palpation of Joints or Extremities Lymphatic: No Cervical, Supraclavicular, or Inguinal Adenopathy Neurological: Neuro grossly intact Psych/Mental Status: Normal Affect, Appropriate Labs (Last 48 Hours) 04/27/19 04/27/19 05:45 05:45 WBC 8.7 RBC 4.00 L Hgb 11.0 L Hct 34.7 L MCV 86.8 MCH 27.5 MCHC 31.7 L RDW Std Deviation 40.6 RDW Coeff of Siobhan 12.8 Plt Count 286 MPV 8.8 Immature Gran % (Auto) 0.700 Neut % (Auto) 80.0 H Lymph % (Auto) 16.0 L Phillips % (Auto) 3.2 Eos % (Auto) 0.0 Baso % (Auto) 0.1 Absolute Neuts (auto) 7.0 Absolute Lymphs (auto) 1.39 Nucleated RBC % 0 Sodium 137 Potassium 4.5 Chloride 96 L Carbon Dioxide 37.0 H Anion Gap 4 L BUN 24 H Creatinine 0.61 Estim Creat Clear Calc 70.45 Est GFR (MDRD) Af Amer 127 Est GFR (MDRD) Non-Af 105 BUN/Creatinine Ratio 39.1 H Glucose 258 H Calcium 8.7 Total Bilirubin 0.20 AST 12 L ALT 25 Alkaline Phosphatase 67 Total Protein 6.2 L Albumin 2.6 L Globulin 3.6 Albumin/Globulin Ratio 0.7 L Microbiology 04/24/19 17:56 Urine, Clean Catch Urine Culture - Final Mixed Gram Positive Organisms 04/23/19 23:05 Blood Culture (Wb) #2 - Anticubital Left Blood Culture - Pre liminary Presumptive E. coli 04/23/19 21:40 Blood Culture (Wb) - Anticubital Right Blood Culture - Preliminary Escherichia coli Clinical Impression(s) from Imaging Studies Chest X-Ray 04/23/19 22:21 IMPRESSION: Chronic interestitial changes. No radiographic evidence of acute cardiopulmonary disease. at 2321 Reported and signed by: Jaswant Castañeda MD Electronically Signed: Jaswant Castañeda MD at 23:20 EST Tel , Service support , Lumbar Spine X-Ray 04/23/19 22:21 IMPRESSION: No acute lumbar spine fracture or subluxation. at 2325 Reported and signed by: Jaswant Castañeda MD Electronically Signed: Jaswant Castañeda MD at 23:24 EST Tel , Service support , Abdomen/Pelvis CT 04/26/19 10:57 IMPRESSION: Focal left lower lobe infiltrate. Electronically Signed: Khurram Recio, at 14:31 EDT , Service support , Renal Ultrasound 04/26/19 10:58 IMPRESSION: Normal ultrasound of the kidneys and urinary bladder. Electronically Signed: Mango Keene MD at 17:12 EDT , Service support , Current Medications Acetaminophen (Tylenol) 1,000 mg PO Q6 [facility] Last Admin: 04/28/19 05:23 Dose: 1,000 mg Documented by: Albuterol Sulfate (Ventolin Aerosols) 2.5 mg INHALATION Q2H PRN PRN PRN Reason: SOB/Wheezing Albuterol/Ipratropium (Duoneb) 3 ml INHALATION Q4HWA.RT [facility] Last Admin: 04/28/19 06:53 Dose: 3 ml Documented by: Aspirin (Aspirin, Baby) 81 mg PO DAILY@0800 [facility] Last Admin: 04/28/19 09:07 Dose: 81 mg Documented by: Atorvastatin Calcium (Lipitor) 40 mg PO DAILY@2200 [facility] Last Admin: 04/27/19 21:34 Dose: 40 mg Documented by: Carvedilol (Coreg) 12.5 mg PO BID [facility] Last Admin: 04/28/19 09:08 Dose: 12.5 mg Documented by: Digoxin (Lanoxin) 250 mcg PO DAILY [facility] Last Admin: 04/28/19 09:07 Dose: 250 mcg Documented by: Enoxaparin Sodium (Lovenox) 40 mg SC DAILY [facility] Last Admin: 04/28/19 09:08 Dose: 40 mg Documented by: Furosemide (Lasix) 40 mg PO DAILY [facility] Last Admin: 04/28/19 09:08 Dose: 40 mg Documented by: Glucagon () 1 mg IM .X1 PRN PRN Reason: Hypoglycemia Sodium Chloride () 500 mls @ 999 mls/hr IV .Q31M ONE Last Infusion: 04/24/19 01:11 Dose: Infused Documented by: Dextrose (Dextrose 10%-Water) 250 mls @ 999 mls/hr IV .Q16M PRN; Protocol PRN Reason: HYPOGLYCEMIA Ceftriaxone Sodium 2 gm/ (Sodium Chloride) 50 mls @ 100 mls/hr IV Q24 [facility] Last Admin: 04/28/19 09:17 Dose: 100 mls/hr Documented by: Levothyroxine Sodium (Synthroid) 25 mcg PO DAILY@0600 [facility] Last Admin: 04/28/19 05:23 Dose: 25 mcg Documented by: Losartan Potassium (Cozaar) 50 mg PO DAILY [facility] Last Admin: 04/28/19 09:07 Dose: 50 mg Documented by: Magnesium Hydroxide (Milk Of Magnesia) 30 ml PO BID [facility] Last Admin: 04/28/19 09:07 Dose: 30 ml Documented by: Melatonin (Melatonin) 3 mg PO QHS PRN PRN PRN Reason: INSOMNIA Last Admin: 04/27/19 23:27 Dose: 3 mg Documented by: Methylprednisolone (Solu-Medrol) 40 mg IV Q8 [facility] Last Admin: 04/28/19 05:23 Dose: 40 mg Documented by: Paroxetine HCl (Paxil) 40 mg PO DAILY [facility] Last Admin: 04/28/19 09:07 Dose: 40 mg Documented by: Polyethylene Glycol (Miralax) 17 gm PO DAILY [facility] Last Admin: 04/28/19 09:07 Dose: 17 gm Documented by: Senna/Docusate Sodium (Senokot-S, Inessa-Colace) 1 tablet PO DAILY [facility] Last Admin: 04/28/19 09:08 Dose: 1 tablet Documented by: Sodium Chloride () 10 - 40 ml IV UD PRN PRN Reason: SALINE FLUSH Last Admin: 04/28/19 09:20 Dose: 10 ml Documented by: Spironolactone (Aldactone) 25 mg PO DAILY [facility] Last Admin: 04/28/19 09:07 Dose: 25 mg Documented by: Tamsulosin HCl (Flomax) 0.4 mg PO QHS [facility] Last Admin: 04/27/19 21:34 Dose: 0.4 mg Documented by: Tramadol HCl (Ultram) 50 mg PO Q6H PRN PRN PRN Reason: Pain Score 4-10/10 Last Admin: 04/28/19 06:38 Dose: 50 mg Documented by: Medical Necessity - Tobacco Use Smoking Status: Former smoker Assessment/Plan All Active Problems (Last Reviewed 04/24/19 @ 01:[address] Nicanor Chou MD) Bacteremia (Acute) Acute and chronic respiratory failure with hypoxia (Acute) COPD exacerbation (Acute) RECOMMENDATIONS: 1. Continue antibiotics, bronchodilators and steroids. Recommend 7-day treatment course of antibiotics. 2. Wean supplemental oxygen as tolerated. 3. Encourage incentive spirometer use and mobilize patient as tolerated. 4. Perform walking oximetry study prior to consideration for discharge home. 5. The patient should follow-up in the pulmonary medicine clinic within 2 weeks of her discharge from the hospital. IMPRESSIONS: 1. COPD with exacerbation Marlin to be secondary to left lower lobe infiltrate identified on CT abdomen/pelvis. Agree with continuing antibiotics, bronchodilators and ster oids. Breathing quality is approaching baseline. The patient has a baseline 3 L/min supplemental oxygen requirement. She undoubtedly needs to follow-up in the pulmonary medicine clinic and needs to complete pulmonary function studies along with a formal 6-minute walk test which are currently scheduled for later this week and next week. Once pulmonary function studies are completed, the patient would likely be a good candidate for the initiation of noninvasive ventilatory support in her home environment, given her chronic CO2 retention. 2. E. coli bacteremia CT abdomen/pelvis showed no intra-abdominal pathology. Infectious diseases is currently following. Continue antibiotics per recommendations. 3. Hypertension/hypothyroidism/hyperlipidemia/chronic pain syndrome Complicates care, management, recovery and prognosis. Continue home medications as indicated. This note was generated with [employer] dictation software. It may contain incorrect words, spelling, and punctuation that were not noted in checking the note before signing. Inpatient E&M: 60007 Subs Hosp L2
--- NOTE | 2019-04-28 10:56 | NURSING ---
Verbal report called to ASTRID Dimas on [facility] who will be assuming care of patient
[2019-04-28 11:06] VITALS: PULSE 61; RESP 16
--- NOTE | 2019-04-28 11:57 | PCM.DC ---
- Discharge Diagnoses Current Active Problems: Current Active and Chronic Problems (Last Reviewed 04/24/19 @ 01:[address] Nicanor Chou MD) COPD (chronic obstructive pulmonary disease) (Chronic) COPD exacerbation (Chronic) Bacteremia (Acute) COPD exacerbation (Acute) Allergies/Adverse Reactions: Allergies hydrocodone bitartrate [From Vicodin] Allergy (Verified 04/23/19 21:36) Hives Penicillins Allergy (Verified 04/23/19 21:36) Anaphylaxis Medications to take at Discharge Losartan Potassium [Cozaar] 50 mg PO DAILY 04/16/15 Spironolactone [Aldactone] 25 mg PO DAILY 04/16/15 albuterol sulfate 90 mcg/actuation aerosol inhaler 2 puff INHALATION Q4H PRN 06/30/17 atorvastatin 40 mg tablet 40 mg PO QDAY 06/30/17 carvedilol 12.5 mg tablet 12.5 mg PO BID 06/30/17 Levothyroxine [Synthroid] 25 mcg PO DAILY 12/10/17 Paroxetine HCl [Paxil] 40 mg PO DAILY 12/10/17 Tamsulosin HCl [Flomax] 0.4 mg PO QHS 12/10/17 Budesonide/Formoterol 160/4.5 [Symbicort 160/4.5 Mcg Inhaler (SP)] 2 puff INHALATION BID 03/01/19 Digoxin [Lanoxin] 250 mcg PO DAILY 03/01/19 Albuterol Aerosols [Ventolin Aerosols] 2.5 mg INHALATION Q4H PRN PRN #1 03/10/19 Aspirin [Aspirin, Baby] 81 mg PO DAILY@0800 #90 tab.chew 03/10/19 Furosemide [Lasix] 40 mg PO DAILY #90 tab 03/10/19 Home Oxygen 3 lpm INHALATION CONT #0 03/10/19 Cefdinir [Omnicef [equiv]] 300 mg PO Q12H #12 cap 04/28/19 Ipratropium/Albuterol Sulfate [Duoneb] 3 ml INHALATION Q6H #40 ampul.neb 04/28/19 Prednisone See Taper PO DAILY #30 tab 04/28/19 The following prescriptions were given: Cefdinir [Omnicef [equiv]] 300 mg PO Q12H #12 cap Transmission Status: Pending to [facility] Prednisone See Taper PO DAILY #30 tab Transmission Status: Pending to [facility] Primary Care Physician: Carlos Ross Chi, MD [Primary Care Provider] - Please follow up with your Primary Care Physician in: 1 Week Test Results: Test results from this visit will be discussed in further detail at your follow-up appointment, if applicable. Please Follow Up With: Madan Wallace DO When: May see CAR DRYER, 2 weeks Proposed Discharge Date: 04/28/19
--- NOTE | 2019-04-28 12:15 | PCM.DC.SUM ---
<Shilpa Mayo - Last Filed: 04/28/19 12:42> Discharge Date and Diagnosis Date of Admission: 04/23/19 Date of Discharge: 04/28/19 - Primary Discharge Diagnosis Active and Suspected Problems (Last Reviewed 04/24/19 @ 01:[address] Nicanor Chou MD) 1. E. coli bacteremia 2. COPD exacerbation with chronic hypoxic respiratory failure 3. Severe osteoarthritis 4. Hypertension 5. Hypothyroidism 6. History of Takotsubo cardiomyopathy 7. Depression/anxiety 8. Chronic constipation 9. History of hepatitis A - Secondary Discharge Diagnosis Chronic Problems (Last Reviewed 04/24/19 @ 01:[address] Nicanor Chou MD) COPD (chronic obstructive pulmonary disease) (Chronic) COPD exacerbation (Chronic) Essential hypertension (Chronic) Elevated LFTs (Chronic) Hepatitis A (Chronic) RBBB (right bundle branch block) (Chronic) Hyperlipidemia (Chronic) Cardiomyopathy, dilated (Chronic) Nonrheumatic mitral valve regurgitation (Chronic) Chronic systolic congestive heart failure (Chronic) Biventricular automatic implantable cardioverter defibrillator in situ (Chronic ~01/05/15) RV lead implantation complicated by tamponade -pericardiocentesis done 01/05/15 Atherosclerotic heart disease of [place] coronary artery without angina pectoris (Chronic) Ventricular tachycardia (Chronic) Hospital Course and Treatment Imaging Results: Diagnostic Data Chest X-Ray 04/23/19 22:21 IMPRESSION: Chronic interestitial changes. No radiographic evidence of acute cardiopulmonary disease. at 2321 Reported and signed by: Jaswant Castañeda MD Electronically Signed: Jaswant Castañeda MD at 23:20 EST Tel , Service support , Lumbar Spine X-Ray 04/23/19 22:21 IMPRESSION: No acute lumbar spine fracture or subluxation. at 2325 Reported and signed by: Jaswant Castañeda MD Electronically Signed: Jaswant Castañeda MD at 23:24 EST Tel , Service support , Abdomen/Pelvis CT 04/26/19 10:57 IMPRESSION: Focal left lower lobe infiltrate. Electronically Signed: Khurram Hemal, at 14:31 EDT , Service support , Renal Ultrasound 04/26/19 10:58 IMPRESSION: Normal ultrasound of the kidneys and urinary bladder. Electronically Signed: Mango Keene MD at 17:12 EDT , Service support , Dr. Wallace- Pulmonary Medicine Dr. Vivas- ID Operations: None Procedures: None Summary of Care Provided: The patient is a 58 year old F admitted 04/23/2019 due to shortness of breath. 1. E. coli bacteremia-unclear etiology. UA negative. IV Rocephin during admission with transition to Omnicef 300 mg twice daily at discharge with stop date 05/03/2019. Possible gut translocation. CT of abdomen with significant stool. Renal ultrasound unremarkable. Repeat blood cultures with no growth thus far. Follow-up with primary care physician in 1 week. 2. COPD exacerbation with chronic hypoxic respiratory failure-oxygen stable on baseline 3 L nasal cannula. Prednisone taper at discharge. Follow-up with pulmonary medicine in 2 weeks. Patient has outpatient PFTs and 6-minute walk test scheduled for 04/28 and 05/04. Called pulmonary office to cancel and recommend rescheduling in 2 weeks. 3. Severe osteoarthritis, chronic pain-follows with palliative care. 4. Hypertension-stable, continue carvedilol, Aldactone, Lasix, losartan. 5. Hypothyroidism-continue Synthroid regimen. 6. History of Takotsubo cardiomyopathy-status post ICD. 7. Depression/anxiety-continue Paxil. 8. Chronic constipation-improved, continue bowel regimen. 9. History of hepatitis A-stable. General: Alert, Oriented x3, Cooperative HEENT: Atraumatic, PERRLA, EOMI, Normocephalic Neck: Supple, No JVD, Negative Carotid Bruits Lungs: Clear to auscultation, Diminished Cardiovascular: Regular rate, No murmurs Abdomen: Bowel Sounds Present, Soft, Non Tender Extremities: No edema, Capillary Refill Less than 3 Seconds Skin: No rashes, No breakdown Musculoskeletal: No Tenderness to Palpation of Joints or Extremities Neurological: Cranial nerves II-XII grossly intact Psych/Mental Status: Normal Affect, Appropriate Patient seen and examined prior to discharge. Physical assessment as noted above. Patient is stable for discharge with follow up recommendations as noted above. This patient was seen by MICHELLE Hassan under the supervision of Dr. Serrato. - Physical Exam Vitals/I&O's: Vital Signs Temp Pulse Resp BP Pulse Ox 98.5 F 61 16 116/82 H 92 04/28/19 09:00 04/28/19 11:06 04/28/19 11:06 04/28/19 09:00 04/28/19 09:00 Oxygen Flow Rate (L/min) 2.5 Oxygen Delivery Method Nasal Cannula Weight: 148 lb 2.41 oz Body Mass Index (BMI) 28.9 Intake and Output for Last 24 Hours 04/26/19 04/27/19 04/28/19 23:59 23:59 23:59 Intake Total 930 / 930 550 / 550 50 / 50 Output Total 400 / 900 500 / 500 200 / 200 Balance 530 / 30 50 / 50 -150 / -150 Microbiology Past 72 Hours 04/24/19 17:56 Urine, Clean Catch Urine Culture - Final Mixed Gram Positive Organisms 04/23/19 23:05 Blood Culture (Wb) #2 - Anticubital Left Blood Culture - Preliminary Presumptive E. coli 04/23/19 21:40 Blood Culture (Wb) - Anticubital Right Blood Culture - Preliminary Escherichia coli Current Medications Acetaminophen (Tylenol) 1,000 mg PO Q6 [facility] Last Admin: 04/28/19 05:23 Dose: 1,000 mg Documented by: Albuterol Sulfate (Ventolin Aerosols) 2.5 mg INHALATION Q2H PRN PRN PRN Reason: SOB/Wheezing Albuterol/Ipratropium (Duoneb) 3 ml INHALATION Q4HWA.RT [facility] Last Admin: 04/28/19 11:06 Dose: 3 ml Documented by: Aspirin (Aspirin, Baby) 81 mg PO DAILY@0800 [facility] Last Admin: 04/28/19 09:07 Dose: 81 mg Documented by: Atorvastatin Calcium (Lipitor) 40 mg PO DAILY@2200 [facility] Last Admin: 04/27/19 21:34 Dose: 40 mg Documented by: Carvedilol (Coreg) 12.5 mg PO BID [facility] Last Admin: 04/28/19 09:08 Dose: 12.5 mg Documented by: Digoxin (Lanoxin) 250 mcg PO DAILY [facility] Last Admin: 04/28/19 09:07 Dose: 250 mcg Documented by: Enoxaparin Sodium (Lovenox) 40 mg SC DAILY [facility] Last Admin: 04/28/19 09:08 Dose: 40 mg Documented by: Furosemide (Lasix) 40 mg PO DAILY [facility] Last Admin: 04/28/19 09:08 Dose: 40 mg Documented by: Glucagon () 1 mg IM .X1 PRN PRN Reason: Hypoglycemia Sodium Chloride () 500 mls @ 999 mls/hr IV .Q31M ONE Last Infusion: 04/24/19 01:11 Dose: Infused Documented by: Dextrose (Dextrose 10%-Water) 250 mls @ 999 mls/hr IV .Q16M PRN; Protocol PRN Reason: HYPOGLYCEMIA Ceftriaxone Sodium 2 gm/ (Sodium Chloride) 50 mls @ 100 mls/hr IV Q24 [facility] Last Infusion: 04/28/19 09:47 Dose: Infused Documented by: Levothyroxine Sodium (Synthroid) 25 mcg PO DAILY@0600 [facility] Last Admin: 04/28/19 05:23 Dose: 25 mcg Documented by: Losartan Potassium (Cozaar) 50 mg PO DAILY [facility] Last Admin: 04/28/19 09:07 Dose: 50 mg Documented by: Magnesium Hydroxide (Milk Of Magnesia) 30 ml PO BID [facility] Last Admin: 04/28/19 09:07 Dose: 30 ml Documented by: Melatonin (Melatonin) 3 mg PO QHS PRN PRN PRN Reason: INSOMNIA Last Admin: 04/27/19 23:27 Dose: 3 mg Documented by: Methylprednisolone (Solu-Medrol) 40 mg IV Q8 [facility] Last Admin: 04/28/19 05:23 Dose: 40 mg Documented by: Paroxetine HCl (Paxil) 40 mg PO DAILY [facility] Last Admin: 04/28/19 09:07 Dose: 40 mg Documented by: Polyethylene Glycol (Miralax) 17 gm PO DAILY [facility] Last Admin: 04/28/19 09:07 Dose: 17 gm Documented by: Senna/Docusate Sodium (Senokot-S, Inessa-Colace) 1 tablet PO DAILY [facility] Last Admin: 04/28/19 09:08 Dose: 1 tablet Documented by: Sodium Chloride () 10 - 40 ml IV UD PRN PRN Reason: SALINE FLUSH Last Admin: 04/28/19 09:20 Dose: 10 ml Documented by: Spironolactone (Aldactone) 25 mg PO DAILY [facility] Last Admin: 04/28/19 09:07 Dose: 25 mg Documented by: Tamsulosin HCl (Flomax) 0.4 mg PO QHS [facility] Last Admin: 04/27/19 21:34 Dose: 0.4 mg Documented by: Tramadol HCl (Ultram) 50 mg PO Q6H PRN PRN PRN Reason: Pain Score 4-10/10 Last Admin: 04/28/19 06:38 Dose: 50 mg Documented by: Discharge Diet: No Restrictions Home Medications: Medications to take at Discharge Losartan Potassium [Cozaar] 50 mg PO DAILY 04/16/15 Spironolactone [Aldactone] 25 mg PO DAILY 04/16/15 albuterol sulfate 90 mcg/actuation aerosol inhaler 2 puff INHALATION Q4H PRN 06/30/17 atorvastatin 40 mg tablet 40 mg PO QDAY 06/30/17 carvedilol 12.5 mg tablet 12.5 mg PO BID 06/30/17 Levothyroxine [Synthroid] 25 mcg PO DAILY 12/10/17 Paroxetine HCl [Paxil] 40 mg PO DAILY 12/10/17 Tamsulosin HCl [Flomax] 0.4 mg PO QHS 12/10/17 Budesonide/Formoterol 160/4.5 [Symbicort 160/4.5 Mcg Inhaler (SP)] 2 puff INHALATION BID 03/01/19 Digoxin [Lanoxin] 250 mcg PO DAILY 03/01/19 Albuterol Aerosols [Ventolin Aerosols] 2.5 mg INHALATION Q4H PRN PRN #1 03/10/19 Aspirin [Aspirin, Baby] 81 mg PO DAILY@0800 #90 tab.chew 03/10/19 Furosemide [Lasix] 40 mg PO DAILY #90 tab 03/10/19 Home Oxygen 3 lpm INHALATION CONT #0 03/10/19 Cefdinir [Omnicef [equiv]] 300 mg PO Q12H #12 cap 04/28/19 Ipratropium/Albuterol Sulfate [Duoneb] 3 ml INHALATION Q6H #40 ampul.neb 04/28/19 Prednisone See Taper PO DAILY #30 tab 04/28/19 Bad tablePrimary Care Physician: Carlos Ross Chi, MD [Primary Care Provider] - Please follow up with your Primary Care Physician in: 1 Week Please Follow Up With: Madan Wallace DO When: May see ENGINEER AND GEOLOGIST, 2 weeks Disposition: Home Minutes spent on discharge:: 35 Patient Condition:: Stable Medical Necessity - Tobacco Use Smoking Status: Former smoker Meaningful Use Info Meaningful Use Diagnoses (Choose all that apply): None applicable <Rao Serrato - Last Filed: 04/28/19 14:43> Discharge Date and Diagnosis - Secondary Discharge Diagnosis Chronic Problems (Last Reviewed 04/24/19 @ 01:[address] Nicanor Chou MD) COPD (chronic obstructive pulmonary disease) (Chronic) COPD exacerbation (Chronic) Essential hypertension (Chronic) Elevated LFTs (Chronic) Hepatitis A (Chronic) RBBB (right bundle branch block) (Chronic) Hyperlipidemia (Chronic) Cardiomyopathy, dilated (Chronic) Nonrheumatic mitral valve regurgitation (Chronic) Chronic systolic congestive heart failure (Chronic) Biventricular automatic implantable cardioverter defibrillator in situ (Chronic ~01/05/15) RV lead implantation complicated by tamponade -pericardiocentesis done 01/05/15 Atherosclerotic heart disease of [place] coronary artery without angina pectoris (Chronic) Ventricular tachycardia (Chronic) Hospital Course and Treatment Summary of Care Provided: This patient was seen in conjunction with MICHELLE Hassan. I have independently interviewed and examined the patient and reviewed pertinent historical, laboratory, and other data. Please refer to MICHELLE Hassan note for details of this patient's presentation, findings, and recommendations. I have reviewed MICHELLE Hassan note and concur with documented findings. In brief, patient is a 58-year-old lady with past medical history single for COPD who presented with progressive shortness of breath was meant of COPD with acute exacerbation made admitted to a monitored bed for subsequent management Assessment: 1. COPD with acute exacerbation 2. E. coli bacteremia 3. Hypertension 4. Hypothyroidism 5. History of Takotsubo cardiomyopathy 6. Cardiomyopathy 7. Depression with anxiety 8. Constipation 9. Acute mechanical fall with right hip pain Hospital course: As documented above - Physical Exam Vitals/I&O's: Vital Signs Temp Pulse Resp BP Pulse Ox 98 F 72 20 H 106/66 94 04/28/19 13:51 04/28/19 13:51 04/28/19 13:51 04/28/19 13:51 04/28/19 13:51 Oxygen Flow Rate (L/min) [ 2.5 AMBULATION with Oxygen] Oxygen Flow Rate (L/min) 2.5 Oxygen Delivery Method Nasal Cannula Weight: 67.2 kg Body Mass Index (BMI) 28.9 Intake and Output for Last 24 Hours 04/26/19 04/27/19 04/28/19 23:59 23:59 23:59 Intake Total 930 / 930 550 / 550 50 / 50 Output Total 400 / 900 500 / 500 200 / 200 Balance 530 / 30 50 / 50 -150 / -150 Microbiology Past 72 Hours 04/24/19 17:56 Urine, Clean Catch Urine Culture - Final Mixed Gram Positive Organisms 04/23/19 23:05 Blood Culture (Wb) #2 - Anticubital Left Blood Culture - Preliminary Presumptive E. coli 04/23/19 21:40 Blood Culture (Wb) - Anticubital Right Blood Culture - Preliminary Escherichia coli Inpatient E&M: [id number] [facility]
[2019-04-28 12:34] VITALS: O2SAT 86; O2SAT 95
--- NOTE | 2019-04-28 13:48 | CASEMGMT ---
KAITLIN notified Rao Johnson on coverage line that patient is being discharged today with no additional services. KAITLIN also faxed d/c instructions. Amie GALVAN MSW
[2019-04-28 13:51] VITALS: BP 106/66; PULSE 72; RESP 20; TEMP 36.6; O2SAT 94
--- NOTE | 2019-04-29 14:43 | CASEMGMT ---
DC DATE: 04.29.19 DC DISPOSITION: Home DC DIAGNOSIS: E.Coli Bacteremia LACE/STRATA: 30/05 F/U APPTS MADE PRIOR TO DC: No. Pt will call to make appt. PRESCRIPTIONS ACQUIRED BY PT: yes Intro role of CM to patient via phone. Pt states she is doing well, no questions and no concerns. RN CM thanked her for using [facility]. No care improvement suggestions given. Lakesha GAMBINON RN ACM
== END 2019-04-28 14:26 | disposition home or self-care (01) | DRG 191 ==
LOC: ED 04-24 00:10 → PCU 04-24 00:41 → MS2 04-28 10:32 → PCU 04-28 11:21
PROVIDERS: Physician Assistant; Admitting Provider Hospitalist; Emergency Provider Emergency Medicine; PCP Family Medicine Geriatric Medicine; Referring Provider Hospitalist; Visit Provider Internal Medicine
DX: J44.1 Chronic obstructive pulmonary disease with (acute) exacerbation (principal); R78.81 Bacteremia; I50.32 Chronic diastolic (congestive) heart failure; J96.11 Chronic respiratory failure with hypoxia; B15.9 Hepatitis A without hepatic coma; E03.9 Hypothyroidism, unspecified; R33.9 Retention of urine, unspecified; M25.551 Pain in right hip; B96.20 Unspecified Escherichia coli [E. coli] as the cause of diseases classified elsewhere; I11.0 Hypertensive heart disease with heart failure; E78.5 Hyperlipidemia, unspecified; G89.4 Chronic pain syndrome; Z87.891 Personal history of nicotine dependence; Z95.810 Presence of automatic (implantable) cardiac defibrillator; K59.09 Other constipation; M19.90 Unspecified osteoarthritis, unspecified site; Z86.79 Personal history of other diseases of the circulatory system; Z99.81 Dependence on supplemental oxygen; I34.0 Nonrheumatic mitral (valve) insufficiency; I45.10 Unspecified right bundle-branch block; I25.10 Atherosclerotic heart disease of native coronary artery without angina pectoris; F41.8 Other specified anxiety disorders; W19.XXXA Unspecified fall, initial encounter
CPT/HCPCS: 36415; 71046; 72100; 74177; 76770; 80048; 80053; 81001; 82306; 82607; 83605; 84484; 85025; 87040; 87077; 87086; 87088; 87186; 87804; 93005; 94640; 94667; 94668; 97110; 97116; 97162; 97165; 97530; 97535; 99251; 99285; J7040; Q9967; A4216; G0463; J0696

== ENCOUNTER 2019-11-17 14:26 | Observation (INO) | payer MEDICARE, MEDICAID, SELFPAY ==
[2019-10-19 16:55] VITALS: BMI 29.3
[2019-11-17 14:27] VITALS: BP 114/74; PULSE 76; RESP 18; TEMP 36.6; O2SAT 100; BMI 29.2
[2019-11-17] MEDS: fentaNYL 100 MCG/2 ML Ampul 50 MCG IM (16:01)
--- NOTE | 2019-11-17 16:05 | RAD_ITS ---
STUDY: X-RAY - RIGHT KNEE REASON FOR EXAM: Female, 59 years old. FELT POP IN KNEE. PAIN IS ANTERIOR. MEDIAL AND INFERIOR TO PATELLA TECHNIQUE: 3 view(s) of the knee. COMPARISON: None. FINDINGS: No acute fracture, dislocation or osseous destruction. Moderate patellofemoral joint space narrowing and associated significant productive changes. No significant soft tissue swelling. IMPRESSION: No acute fracture or dislocation. Consider MRI for further evaluation of soft tissue structures as clinically indicated. Electronically Signed: Keenan Alarcon, at 16:47 EDT Tel , Service support , RAD/Knee 4 or More Views
[2019-11-17] MEDS: HYDROcodone Bitartrate/Apap 5/325 Tablet PO ×2 (17:05→23:14)
--- NOTE | 2019-11-17 17:15 | ED.DCSUM_ITS ---
- ER Visit Summary Date of Service: 11/17/19 Chief Complaint: Right knee pain History of Present Illness: The patient is a 59 F who has a nurse practitioner who sees her at home (patient does not know her name) and Dr. Phipps. Patient reports that 2 days ago she was getting out of the car twisted awkwardly and has had right knee pain since that time. Is a sharp and is 1010 worsening to 10 currently. Is worsened by walking. She taken Vicodin without relief. She did not fall. She denies any other injuries. No numbness or weakness. Review of systems: General: No fever, chills, cold sweats. Cardiovascular: No chest pain, palpitations. Respiratory: No cough, shortness of breath, dyspnea on exertion. Gastrointestinal: No abdominal pain, nausea, vomiting, diarrhea, melena, or hematochezia. Genitourinary: No dysuria, frequency, hematuria. Skin: No rash. Neuro: No headache, numbness, weakness. Physical Examination: Vitals: Stable. Afebrile. General: Well-nourished and well-developed. Head: Normocephalic atraumatic. Neck: Supple, no lymphadenopathy. No JVD. Nontender. Cardiovascular: Regular rate and rhythm. No murmurs. Respiratory: No respiratory distress. Clear to auscultation bilaterally. Abdominal: Soft, nontender, nondistended, normal bowel sounds. No guarding, rebound, or peritoneal signs. Back: Nontender. Extremities: No pedal edema. No calf tenderness. She has moderate tense palpation over the medial side of her right knee. There is a moderate joint effusion. She has no overlying erythema warmth to suggest a septic joint. She has pain, but no ligamentous instability with anterior/posterior drawer or medial/lateral stress. Skin: Normal color, no rash. Neurologic: Alert and oriented ?3. Cranial nerves II through XII are intact. Normal strength and sensation. Psych: Normal affect. Test Results: Right knee x-ray shows degenerative changes. No fracture or dislocation. Emergency Department Course and Treatment: Patient was given a dose of fentanyl IM. She was given [place] p.o. however, she is unable to walk due to pain. Treatment Plan: Patient will be discussed the hospitalist admitted for further e valuation and treatment. Disposition: Admitted in stable condition. Impression: 1. Right knee pain, acute. This note was generated with [employer] dictation software. It may contain incorrect words, spelling, and punctuation that were not noted in review of the chart prior to signing ED Disposition - Plan for ED Patient: Instructions: ED Knee Pain [facility] Prescriptions: Hydrocodone Bitart/Apap 5-325 [[place] 5MG-325MG] 2 tab PO Q6H PRN PRN 3 Days #24 tab PRN Reason: Pain Prescription Printed Referrals: IN[facility] OWEN [Other] Cade Phipps MD [STAFF PHYSICIAN] - 11/21/19 Paul Mayorga MD [STAFF PHYSICIAN] - 1 Week if not improving
[2019-11-17 18:06] VITALS: BP 149/59; PULSE 79; RESP 17; TEMP 36.4; O2SAT 100
--- NOTE | 2019-11-17 18:13 | HP.PCM_ITS ---
<Chau Judd - Last Filed: 11/17/19 18:13> Problem List (1) Debility Status: Acute (2) Smoking greater than 30 pack years Status: Chronic (3) COPD (chronic obstructive pulmonary disease) Status: Chronic (4) Essential hypertension Status: Chronic (5) Hepatitis A Status: Chronic (6) Acute and chronic respiratory failure with hypoxia Status: Acute (7) Obesity (BMI 30.0-34.9) Status: Inactive (8) RBBB (right bundle branch block) Status: Chronic (9) Hyperlipidemia Status: Chronic (10) Cardiomyopathy, dilated Status: Chronic (11) Chronic systolic congestive heart failure Status: Chronic (12) Biventricular automatic implantable cardioverter defibrillator in situ Status: Chronic Comment: RV lead implantation complicated by tamponade - pericardiocentesis done 01/05/15 History of Present Illness Date of Admission: 11/17/19 Chief Complaint: right knee pain The patient is a 59 year old F with pmhx of chronic right hip pain 2/2 osteoarth ritis, patient of Dr. Phipps, hx takotsubalma CM, ICD in place, COPD chronically on O2 3lpm, who presnts to the ER with c/o right knee pain. This began on thursday. She got into a van to go see Dr. Phipps, turned back while standing in the van to take her purse from her daughter and felt and heard a loud pop in the medial aspect of the right knee. She developed immediate severe pain. She was able to g et to her appointment where she underwent an injection of the right hip previously arranged. She went home and was able to take a couple steps to get into the house. She sat down and from that point she has been unable to ambulate. She has had no relief of her pain so came to the ER today. Xray of the knee was negative. She was given pain meds with little relief and is still unable to walk. Pain remains localized to the right medial aspect and is worse with extension better with flexion. She lives with her daughter but does not feel that she can go home because she cannot take care of herself and cannot get out of bed to use the bathroom - she has urinated in bed several times. She has never had joint surgery tho she has seen either Dr. Collins or Mukesh in the past - she is not sure which. [] Past Medical History Past Medical History (Chronic Problems): Chronic Problems (Last Reviewed 11/15/19 @ 09:46 by Arlette Beckwith ENCODING CLERK, ENCODING CLERK-C) Smoking greater than 30 pack years (Chronic) COPD (chronic obstructive pulmonary disease) (Chronic) COPD exacerbation (Chronic) Essential hypertension (Chronic) Elevated LFTs (Chronic) Hepatitis A (Chronic) RBBB (right bundle branch block) (Chronic) Hyperlipidemia (Chronic) Cardiomyopathy, dilated (Chronic) Nonrheumatic mitral valve regurgitation (Chronic) Chronic systolic congestive heart failure (Chronic) Biventricular automatic implantable cardioverter defibrillator in situ (Chronic ~01/05/15) RV lead implantation complicated by tamponade -pericardiocentesis done 01/05/15 Atherosclerotic heart disease of [place] coronary artery without angina pectoris (Chronic) Ventricular tachycardia (Chronic) Medical History: Medical History (Last Reviewed 11/15/19 @ 09:46 by Arlette Beckwith ENCODING CLERK, ENCODING CLERK-C) Obesity (BMI 30.0-34.9) (Inactive) E66.9 RBBB (right bundle branch block) (Chronic) I45.10 Hyperlipidemia (Chronic) E78.5 Cardiomyopathy, dilated (Chronic) I42.0 Nonrheumatic mitral valve regurgitation (Chronic) I34.0 Chronic systolic congestive heart failure (Chronic) I50.22 Biventricular automatic implantable cardioverter defibrillator in situ (Chronic) Onset Date: ~01/05/15 Z95.810 RV lead implantation complicated by tamponade -pericardiocentesis done 01/05/15 Atherosclerotic heart disease of [place] coronary artery without angina pectoris (Chronic) I25.10 Ventricular tachycardia (Chronic) I47.2 Anxiety F41.9 COPD (chronic obstructive pulmonary disease) J44.9 Depression F32.9 Cardiac tamponade (Inactive) I31.4 Allergies hydrocodone bitartrate [From Vicodin] Allergy (Verified 11/17/19 14:29) Hives Penicillins Allergy (Verified 11/17/19 14:29) Anaphylaxis Home Medications: Ambulatory Orders Medication Instructions Recorded Losartan Potassium [Cozaar] 50 mg PO DAILY 04/16/15 albuterol sulfate 90 mcg/actuation 2 puff INHALATION Q4H PRN 06/30/17 aerosol inhaler atorvastatin 40 mg tablet 40 mg PO QHS 06/30/17 Levothyroxine [Synthroid] 25 mcg PO DAILY 12/10/17 Paroxetine HCl [Paxil] 40 mg PO DAILY 12/10/17 Tamsulosin HCl [Flomax] 0.4 mg PO QHS 12/10/17 Budesonide/Formoterol 160/4.5 2 puff INHALATION BID 03/01/19 [Symbicort 160/4.5 Mcg Inhaler (SP)] Digoxin [Lanoxin] 250 mcg PO DAILY 03/01/19 Albuterol Aerosols [Ventolin 2.5 mg INHALATION Q4H PRN PRN #1 03/10/19 Aerosols] Furosemide [Lasix] 40 mg PO DAILY #90 tab 03/10/19 hydrocodone 5 mg-acetaminophen 325 1 tab PO Q12H PRN tab 11/15/19 mg tablet Carvedilol [Coreg] 12.5 mg PO BID 11/17/19 Hydrocodone Bitart/Apap 5-325 2 tab PO Q6H PRN PRN 3 Days #24 tab 11/17/19 [Zearing 5MG-325MG] Mirabegron [Myrbetriq] 25 mg PO DAILY 11/17/19 Tiotropium Grace [Spiriva 2 puff INHALATION DAILY 11/17/19 Respimat] Surgical History: Surgical History (Last Reviewed 11/15/19 @ 09:46 by Arlette Beckwith ENCODING CLERK, ENCODING CLERK-C) History of tubal ligation Z98.51 Status post pericardiocentesis Z98.890 Surgical History: - - x 2, hysterectomy, AICD/pacemaker placement. 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 Lives: With Family Smoking Status: Former smoker Tobacco Use: Non-smoker Alcohol: None Drugs: None - *Family History Maternal Family History: Family History (Last Reviewed 11/17/19 @ 18:20 by Chau KENDALL PA) Father CAD (coronary artery disease) Hypertension Mother CAD (coronary artery disease) Hypertension Diabetes Brother CAD (coronary artery disease) History Items: Diabetes, Heart Disease, Hypertension Paternal Family History: Family History (Last Reviewed 11/17/19 @ 18:20 by Chau KENDALL, PA) Father CAD (coronary artery disease) Hypertension Mother CAD (coronary artery disease) Hypertension Diabetes Brother CAD (coronary artery disease) History Items: Heart Disease, Hypertension Review of Systems Constitutional: Denies: Chills, Fever, Weight Change HEENT: Denies: Head Aches, Sinus Congestion, Sinus Drainage Cardiovascular: Denies: Chest Pain, Palpitations Respiratory: Denies: Cough, Shortness of breath at rest, Sputum production Gastrointestinal: Denies: Abdominal Pain, Nausea, Vomiting Genitourinary: Denies: Dysuria Musculoskeletal: Reports: Joint Pain - right knee. Denies: Joint Tenderness Skin: Denies: Rash, Wounds Neurological: Denies: Numbness, Tingling, Focal weakness Psychiatric: Denies: Anxiety, Depression, Homicidal Ideations, Suicidal Ideations Hematologic/ Lymphatic: Denies: Easy Bruising, Easy Bleeding VTE Information - Inpt Only VTE Present on Admission: No VTE Mechan Device Prophylaxis: None VTE Pharm Prophylaxis ordered?: Yes Patient Problems: Active and Suspected Problems (Last Reviewed 11/15/19 @ 09:46 by Arlette Beckwith ENCODING CLERK, ENCODING CLERK-C) Debility (Acute) - Physical Exam Vitals/I&O's: Vital Signs Temp Pulse Resp BP Pulse Ox 97.5 F L 79 17 149/59 H 100 11/17/19 18:06 11/17/19 18:06 11/17/19 18:06 11/17/19 18:06 11/17/19 18:06 Oxygen Flow Rate (L/min) 3 Oxygen Delivery Method Room Air Weight: 150 lb Body Mass Index (BMI) 29.2 General: Alert, Oriented x3, Cooperative HEENT: Atraumatic, PERRLA, EOMI, Normocephalic Neck: Supple, No JVD, Negative Carotid Bruits Lungs: Clear to auscultation, Normal air movement Cardiovascular: Regular rate, No murmurs Abdomen: Bowel Sounds Present, Soft, Non Tender Extremities: No edema, Capillary Refill Less than 3 Seconds Skin: No rashes, No breakdown Musculoskeletal: - - right medial knee tender to light palp. knee held in flexion. pt unable to fully extend at the knee due to pain. Exam is limited as pt is severely tender with minimal palpation and with all movements. Unable to adequately perform special tests at this time. Neurological: Cranial nerves II-XII grossly intact Psych/Mental Status: Normal Affect, Appropriate, Alert and oriented to time, place, person, mood and affect Assessment/Plan All Active Problems (Last Reviewed 11/15/19 @ 09:46 by Arlette Beckwith NP, ENCODING CLERK- C) Debility (Acute) Bacteremia (Acute) Acute and chronic respiratory failure with hypoxia (Acute) COPD exacerbation (Acute) 1. Intractable right knee pain with inability to ambulate - pain localized to medial aspect of the right knee. xray neg. felt felt/heard pop in this location on twisting. ortho consult, obtain mri knee. concern for medial meniscus/ligament tear. No hx surgery to this knee. 2. COPD with chronic hypoxic resp failure - baseline 3 lpm. no exacerbation. provide aerosols as needed + home meds. 3. Hx Takotsubo CM, chronic systolic CHF, has ICD - continue coreg, dig, statin, losartan 4. Hx severe osteoarthritis - right hip. in pain management with Dr. Phipps. 5. Hx Hep A. 6. HLD - statin 7. Hx Vtach - coreg, digoxin 8. Hypothyroid - synthroid DVT ppx: lovenox DC planning: pt unable to ambulate. PTOT. may need placement. This patient was seen by Chau Judd PA-C under the supervision of Doctor Ailyn. <Lawanda Robertson - Last Filed: 11/17/19 18:39> History of Present Illness The patient is a 59 year old F [] Past Medical History Medical History: Medical History (Last Reviewed 11/15/19 @ 09:46 by Arlette Beckwith NP, ENCODING CLERK-C) Obesity (BMI 30.0-34.9) (Inactive) E66.9 RBBB (right bundle branch block) (Chronic) I45.10 Hyperlipidemia (Chronic) E78.5 Cardiomyopathy, dilated (Chronic) I42.0 Nonrheumatic mitral valve regurgitation (Chronic) I34.0 Chronic systolic congestive heart failure (Chronic) I50.22 Biventricular automatic implantable cardioverter defibrillator in situ (Chronic) Onset Date: ~01/05/15 Z95.810 RV lead implantation complicated by tamponade -pericardiocentesis done 01/05/15 Atherosclerotic heart disease of [place] coronary artery without angina pectoris (Chronic) I25.10 Ventricular tachycardia (Chronic) I47.2 Anxiety F41.9 COPD (chronic obstructive pulmonary disease) J44.9 Depression F32.9 Cardiac tamponade (Inactive) I31.4 Allergies hydrocodone bitartrate [From Vicodin] Allergy (Verified 11/17/19 14:29) Hives Penicillins Allergy (Verified 11/17/19 14:29) Anaphylaxis Surgical History: Surgical History (Last Reviewed 11/15/19 @ 09:46 by Arlette Beckwith ENCODING CLERK, ENCODING CLERK-C) History of tubal ligation Z98.51 Status post pericardiocentesis Z98.890 - *Family History Maternal Family History: Family History (Last Reviewed 11/17/19 @ 18:20 by Chau KENDALL PA) Father CAD (coronary artery disease) Hypertension Mother CAD (coronary artery disease) Hypertension Diabetes Brother CAD (coronary artery disease) Paternal Family History: Family History (Last Reviewed 11/17/19 @ 18:20 by FAIZA Sullivan) Father CAD (coronary artery disease) Hypertension Mother CAD (coronary artery disease) Hypertension Diabetes Brother CAD (coronary artery disease) - Physical Exam Vitals/I&O's: Vital Signs Temp Pulse Resp BP Pulse Ox 97.5 F L 79 17 149/59 H 100 11/17/19 18:06 11/17/19 18:06 11/17/19 18:06 11/17/19 18:06 11/17/19 18:06 Oxygen Flow Rate (L/min) 3 Oxygen Delivery Method Room Air Weight: 68.039 kg Body Mass Index (BMI) 29.2 Assessment/Plan This patient was seen in conjunction with FAIZA Desai. I have independently interviewed and examined the patient and reviewed pertinent historical, laboratory, and other data. Please refer to FAIZA Desai note for his patient's presentation, findings, and recommendations. I have reviewed and his note and concur with his documentation 59-year-old female with past medical history of COPD on chronic 3 L oxygen, CHF/Takotsubo cardiomyopathy, abscess post biventricular ICD/left bundle branch block, neck right hip pain secondary to osteoarthritis, follows with Dr. Phipps who comes in with complaints of persistent right knee pain that started 2 days prior to admission. Patient was going to see Dr. Phipps when she turned suddenly and had a pop in her right knee. She followed up at that admission and got injection in her right hip. When she got home she was able to take a couple of steps into the house but has since not been able to ambulate. Her vitals in the ED have been stable, she is on 3 L oxygen as she is at home. Physical Exam: Gen: Looks in some discomfort, not pale, not jaundiced, appears chronically ill, on 3 L oxygen CVS:HS I +II, regular, no murmurs RESP: Generally diminished, no wheezes seen GI: BS present and normal, soft, nontender, no palpable organs EXT:No edema, slight swelling of the right knee, no effusion appreciated, tenderness on range of motion ASSESSMENT: 1. Intractable right knee pain, concerning for possible meniscal tear 2. COPD with chronic hypoxic respiratory failure, on 3 L oxygen, no signs of acute exacerbation 3. Non-CAD cardiomyopathy/Takotsubo/chronic systolic CHF/status post biventricular ICD 4. Hypothyroidism 5. Hyperlipidemia 6. History of V. tach Plan: Discussed with Dr. Paul Mayorga supervisor alteration workroom; will get an MRI of the right knee Consider orthopedic consult if MRI shows any acute fractures Will continue with pain control Continue with rest of her chronic home medications PT/OT to evaluate and treat Social work/case management consult for discharge planning OBSV E&M: [id number] Initial observation care L3
--- NOTE | 2019-11-17 18:15 | NURSING ---
MED SURG PAINTSIL KNEE PAIN, INABILITY TO AMBULATE
[2019-11-17 18:50] VITALS: BMI 26.4
[2019-11-17 18:54] VITALS: BMI 26.4
[2019-11-17 19:01] VITALS: BP 118/81; PULSE 73; RESP 18; TEMP 36.9; O2SAT 98
[2019-11-17 19:54] VITALS: PULSE 85; RESP 20; O2SAT 93
[2019-11-17 19:55] VITALS: PULSE 81; RESP 14; O2SAT 94
[2019-11-17] MEDS: Ipratropium 0.5 MG/2.5 ML SOLUTION INHALATION (19:55)
[2019-11-17] MEDS: Acetaminophen 325 MG Tablet 650 MG PO (20:32)
[2019-11-17] MEDS: Tamsulosin HCl 0.4 MG Capsule PO (20:32)
[2019-11-17] MEDS: Atorvastatin Calcium 40 MG Tablet PO (20:33)
[2019-11-17] MEDS: Heparin Injection (Vial) 5,000 UNIT/ML VIAL 5000 UNIT SC (20:34)
[2019-11-17] MEDS: Carvedilol 12.5 MG Tablet PO (20:34)
[2019-11-17] MEDS: 0.9% Saline Lock 10 ML Syringe IV ×2 (23:15→23:17)
[2019-11-18] VITALS (8 sets, daily range): BP systolic 97–130; BP diastolic 43–79; PULSE 70–89; RESP 16–20; TEMP 36.7–37.3; O2SAT 95–98
[2019-11-18] MEDS: Lidocaine 5% Patch 1 PATCH TOPICAL (03:10)
[2019-11-18] MEDS: Acetaminophen 325 MG Tablet 650 MG PO (03:19)
[2019-11-18] MEDS: Levothyroxine 25 MCG TABLET PO (05:33)
[2019-11-18] MEDS: Heparin Injection (Vial) 5,000 UNIT/ML VIAL 5000 UNIT SC ×3 (05:33→21:54)
[2019-11-18 06:06] LABS: Basophil% 0.6 % (0-1); Eosinophils% 0.9 % (0-5); Hematocrit 32.5 % (37-47); Hemoglobin 9.9 g/dL (12.0-15.0); Lymphocyte % 41.1 % (19-41); Mean Corp Hgb Conc 30.5 g/dL (32-36); Mean Corpuscular Hgb 27.7 pg (27.0-32.0); Mean Platelet Vol. 8.4 fl (6.2-12.0); Monocyte% 7.9 % (0-10); Neutrophil # 2.62 X10^3/uL (2.7-7.7); Neutrophil % 49.1 % (47-70); Platelet Count 215 K/mm3 (150-450); RBC Distribution Width CV 12.4 % (11.6-14.6); RBC Distribution Width SD 41.3 fl (35.1-43.9); Red Blood Count 3.57 M/mm3 (4.2-5.4); White Blood Count 5.3 K/mm3 (4.4-11.0)
[2019-11-18 06:07] LABS: Absolute Lymphocyte Count 2.19 X10^3/uL (0.83-4.51); Absolute Neutrophil Count 2.6 X10^3/uL (2.0-7.7); Basophil# 0.03 X10^3/uL; Eosinophil# 0.05 X10^3/uL; Lymphocyte # 2.19 X10^3/ul (4.0); Monocyte# 0.42 X10^3/uL; NRBC Flagged by Analyzer 0 % (0-5)
[2019-11-18 06:41] LABS: ALB/GLOB Ratio 0.9 RATIO (0.9-2.4); AST(SGOT) 15 U/L (15-37); Alanine Aminotransfer ALT/SGPT 15 U/L (13-56); Albumin, Serum 2.9 g/dL (3.2-5.0); Alkaline Phosphatase 61 U/L (45-117); Anion Gap 2 (5-15); BUN 16 mg/dL (7-18); BUN/Creat Ratio 39.1 RATIO (10-20); Calcium,Total 8.6 mg/dL (8.5-10.1); Chloride 105 mmol/L (98-107); Creatinine, Serum 0.41 mg/dL (0.55-1.02); EST Glomerular Filtration Rate 168 mL/min (>60); Est Glom Filt Rate - Afr Amer 203 mL/min (>60); Globulin 3.1 g/dL (2.2-4.2); Glucose 96 mg/dL (74-106); Potassium 3.9 mmol/L (3.5-5.1); Sodium Level 139 mmol/L (136-145)
[2019-11-18] MEDS: Ipratropium 0.5 MG/2.5 ML SOLUTION INHALATION ×3 (07:04→19:04)
[2019-11-18] MEDS: oxyCODONE 5 MG Tablet 10 MG PO ×3 (08:31→21:55)
[2019-11-18] MEDS: Carvedilol 12.5 MG Tablet PO ×2 (08:32→21:54)
[2019-11-18] MEDS: Losartan Potassium 50 MG Tablet PO (08:32)
[2019-11-18] MEDS: Digoxin 250 MCG Tablet PO (08:33)
[2019-11-18] MEDS: Furosemide 40 MG Tablet PO (08:33)
[2019-11-18] MEDS: Mirabegron 25 MG TAB.ER.24H PO (08:33)
[2019-11-18] MEDS: Paroxetine 20 MG Tablet 40 MG PO (08:34)
--- NOTE | 2019-11-18 10:34 | CT_ITS ---
STUDY: CT RIGHT KNEE WITHOUT CONTRAST REASON FOR EXAM: Female, 59 years old. Right knee pain, heard a and quot;pop and quot; in medial knee three days ago RADIATION DOSAGE (If Supplied By Facility): CTDIvol = ( 15.35 ) mGy, DLP = ( 403.65 ) mGycm TECHNIQUE: Transaxial CT imaging of the knee was performed. Coronal and sagittal images were reformatted. Individualized dose optimization techniques were used for this CT. COMPARISON: None. FINDINGS: Normal medial femoral condyle and medial tibial plateau. There is preservation of the articular joint space of the medial knee compartment. Normal lateral femoral condyle and lateral tibial plateau. There is preservation of the articular joint space of the lateral knee compartment. Moderate degree of joint space narrowing involving the femoral patellar joint. Normal proximal tibiofibular articulation. Minimal joint effusion. The quadriceps tendon is grossly normal. The patellar tendon is grossly normal. Normal Hoffa''s fat pad. The soft tissues are unremarkable. CT/Extremity Lower without Contra IMPRESSION: Moderate degree of joint space narrowing involving the femoral patellar joint. Minimal joint effusion. Electronically Signed: Khurram Recio, at 11:56 EDT , Service support ,
--- NOTE | 2019-11-18 11:01 | CASEMGMT ---
Social Work Note KAITLIN reviewed chart. Pt has services through [facility]. KAITLIN placed a call to [facility] and spoke with Carlie. Carlie states pt was discharged from Palliative services. KAITLIN placed a call to [facility], Pt has [facility] Waiver program and CM is Jonathon. KAITLIN placed a call to Jonathon, Jonathon is out of the office today until Thursday. KAITLIN left message for Court[facility]acio and also placed a call to coverage line and updated staff on pt's admission to [facility]. Pt has 6 hours a week personal care services through [facility] and [facility] button through [facility]. Alecia Moore HAND SPRING FORMER, BANDER AND CELLOPHANER MACHINE
--- NOTE | 2019-11-18 11:02 | NURSING ---
pt to CT via bed
--- NOTE | 2019-11-18 13:28 | CASEMGMT ---
Addendum entered by Alecia Moore 11/18/19 13:33: Specialist: Dr. Phipps, Dr. Wallace, and Dr. Yeboah Original Note: Social Work Assessment Referral Date: 11/18/2019 Date of Assessment: 11/18/2019 Reason for consult: Possible SNF Informant: SW Personal Status: SW met with pt to complete initial assessment. SW introduced self and role at [facility]. Pt is alert and orientated x3. Pt states that she lives with her daughter in a two story home with four steps to enter. Pt states that before her knee pain, she was somewhat independent, able to get around in the home with her walker. Pt states since her knee started hurting, she has not been able to get around well at home. DME include wheelchair, walker, rollator, tub bench, Nebulizer, Oxygen at home. PCP is Chloe Wellington but pt states her PCP recently changed and she doesn't remember her new PCP. Pharmacy is [facility]. Substance Abuse Hx: Pt denied. Pt states she used to smoke but denied current use. Mental Health Hx: Pt states history of anxiety and some depression. Pt states she is currently on medication that is prescribed through her PCP. Pt denied any history/current suicidal thoughts/plans/ideations. C: Pt currently receives 6 hours of personal aide services through [facility]: Pt has been to [facility] before KAITLIN spoke with pt regarding discharge plans. Pt states I was planning on returning home to my daughters but I guess it depends on what happens with my knee. SW did provide pt with list of SNF that accept her insurance in the event SNF is needed. Plan: TBD Alecia Moore QUALITY REVIEW SPECIALIST, WIRING TECHNICIAN
--- NOTE | 2019-11-18 13:51 | PCM.PN.HOSP ---
<Chau Judd - Last Filed: 11/18/19 15:01> Patient Problems: Active and Suspected Problems (Last Reviewed 11/15/19 @ 09:46 by Arlette Beckwith [employer], [employer]-C) Intractable right knee pain (Acute) Debility (Acute) Reason for Visit: right knee pain Subjective: pain with mild improvement. patient was able to stand with assist however unable to ambulate. No numbness/tingling of the affected extremity. right hip pain minimal. back pain minimal. Vitals/I&O's: Vital Signs Temp Pulse Resp BP Pulse Ox 99.1 F 82 16 100/62 97 11/18/19 07:42 11/18/19 12:43 11/18/19 12:43 11/18/19 07:42 11/18/19 07:42 Oxygen Flow Rate (L/min) 3 Oxygen Delivery Method Nasal Cannula Weight: 134 lb 0.657 oz Body Mass Index (BMI) 26.4 Intake and Output for Last 24 Hours 11/16/19 11/17/19 11/18/19 23:59 23:59 23:59 Intake Total 500 / 500 480 / 480 Output Total 100 / 100 860 / 860 Balance 400 / 400 -380 / -380 General: Alert, Oriented x3, Cooperative HEENT: Atraumatic, PERRLA, EOMI, Normocephalic Neck: Supple, No JVD, Negative Carotid Bruits Lungs: Clear to auscultation, Normal air movement Cardiovascular: Regular rate, No murmurs Abdomen: Bowel Sounds Present, Soft, Non Tender Extremities: No edema, Capillary Refill Less than 3 Seconds Skin: No rashes, No breakdown Musculoskeletal: - - exam is limited 2/2 severe pain with light palp Neurological: Cranial nerves II-XII grossly intact Psych/Mental Status: Normal Affect, Appropriate, Alert and oriented to time, place, person, mood and affect Laboratory Results 11/18/19 05:32: WBC 5.3, RBC 3.57 L, Hgb 9.9 L, Hct 32.5 L, MCV 91.0, MCH 27.7, MCHC 30.5 L, RDW Std Deviation 41.3, RDW Coeff of Siobhan 12.4, Plt Count 215, MPV 8.4, Immature Gran % (Auto) 0.400, Neut % (Auto) 49.1, Lymph % (Auto) 41.1 H, King % (Auto) 7.9, Eos % (Auto) 0.9, Baso % (Auto) 0.6, Absolute Neuts (auto) 2.6, Absolute Lymphs (auto) 2.19, Nucleated RBC % 0 11/18/19 05:32: Sodium 139, Potassium 3.9, Chloride 105, Carbon Dioxide 32.0, Anion Gap 2 L, BUN 16, Creatinine 0.41 L, Estim Creat Clear Calc 103.50, Est GFR (MDRD) Af Amer 203, Est GFR (MDRD) Non-Af 168, BUN/Creatinine Ratio 39.1 H, Glucose 96, Calcium 8.6, Total Bilirubin 0.30, AST 15, ALT 15, Alkaline Phosphatase 61, Total Protein 6.0 L, Albumin 2.9 L, Globulin 3.1, Albumin/Globulin Ratio 0.9 Current Medications Acetaminophen (Tylenol) 1,000 mg PO Q8 PENDING SALE TO [facility] Albuterol Sulfate (Ventolin Aerosols) 2.5 mg INHALATION Q4H PRN PRN PRN Reason: Shortness of breath, wheezing Atorvastatin Calcium (Lipitor) 40 mg PO QHS PENDING SALE TO [facility] Last Admin: 11/17/19 20:33 Dose: 40 mg Documented by: Carvedilol (Coreg) 12.5 mg PO BID PENDING SALE TO [facility] Last Admin: 11/18/19 08:32 Dose: 12.5 mg Documented by: Digoxin (Lanoxin) 250 mcg PO DAILY PENDING SALE TO [facility] Last Admin: 11/18/19 08:33 Dose: 250 mcg Documented by: Furosemide (Lasix) 40 mg PO DAILY PENDING SALE TO [facility] Last Admin: 11/18/19 08:33 Dose: 40 mg Documented by: Heparin Sodium (Porcine) (Heparin Na) 5,000 unit SC Q8 PENDING SALE TO [facility] Last Admin: 11/18/19 05:33 Dose: 5,000 unit Documented by: Sodium Chloride () 250 mls @ 15 mls/hr IV .[id number] PRN PRN Reason: Saline Flush Sodium Chloride () 250 mls @ 15 mls/hr IV .[id number] PRN PRN Reason: Additional IVPB Infusion Ipratropium Dawn (Atrovent) 0.5 mg INHALATION Q6HWA.RT PENDING SALE TO [facility] Last Admin: 11/18/19 12:43 Dose: 0.5 mg Documented by: Levothyroxine Sodium (Synthroid) 25 mcg PO DAILY@0600 PENDING SALE TO [facility] Last Admin: 11/18/19 05:33 Dose: 25 mcg Documented by: Lidocaine (Lidoderm Patch) 1 patch TOPICAL DAILY PENDING SALE TO [facility]; Protocol Last Admin: 11/18/19 03:10 Dose: 1 patch Documented by: Losartan Potassium (Cozaar) 50 mg PO DAILY PENDING SALE TO [facility] Last Admin: 11/18/19 08:32 Dose: 50 mg Documented by: Mirabegron (Myrbetriq) 25 mg PO DAILY PENDING SALE TO [facility] Last Admin: 11/18/19 08:33 Dose: 25 mg Documented by: Nutritional Formula (Lactose Free) (Ensure Enlive) 120 ml PO 4X/DAY PENDING SALE TO [facility] Last Admin: 11/18/19 09:22 Dose: Not Given Documented by: Ondansetron HCl (Zofran) 4 mg IV Q8H PRN PRN PRN Reason: NAUSEA/VOMITING Oxycodone HCl (Oxyir) 10 mg PO Q6H PRN PRN PRN Reason: Pain Score 6-10/10 Last Admin: 11/18/19 08:31 Dose: 10 mg Documented by: Paroxetine HCl (Paxil) 40 mg PO DAILY PENDING SALE TO [facility] Last Admin: 11/18/19 08:34 Dose: 40 mg Documented by: Sodium Chloride () 10 - 40 ml IV UD PRN PRN Reason: SALINE FLUSH Last Admin: 11/17/19 23:17 Dose: 10 ml Documented by: Tamsulosin HCl (Flomax) 0.4 mg PO QHS PENDING SALE TO [facility] Last Admin: 11/17/19 20:32 Dose: 0.4 mg Documented by: STROKE Vital Signs/Narrative: Vital Signs Pulse Resp 11/18/19 12:43 82 16 Medical Necessity - Tobacco Use Smoking Status: Former smoker Tobacco Use: Cigarettes Assessment/Plan All Active Problems (Last Reviewed 11/15/19 @ 09:46 by Arlette Beckwith [employer], [employer]) Intractable right knee pain (Acute) Debility (Acute) 1. Intractable right knee pain with inability to ambulate - pain localized to medial aspect of the right knee. xray neg. felt felt/heard pop in this location on twisting. -Cannot have MRI 2/2 AICD -CT knee without acute change -Ortho consult -still unable to ambulate. 2. COPD with chronic hypoxic resp failure - baseline 3 lpm. no exacerbation. provide aerosols as needed + home meds. 3. Hx Takotsubo CM, chronic systolic CHF, has ICD - continue coreg, dig, statin, losartan 4. Hx severe osteoarthritis - right hip. in pain management with Dr. Phipps. pain controlled since last injection () 5. Hx Hep A. 6. HLD - statin 7. Hx Vtach - coreg, digoxin 8. Hypothyroid - synthroid DVT ppx: lovenox DC planning: pt unable to ambulate. PTOT. may need placement. This patient was seen by Chau Judd PA-C under the supervision of Doctor Ness <Antoine Arzola E - Last Filed: 11/19/19 08:30> Vitals/I&O's: Vital Signs Temp Pulse Resp BP Pulse Ox 99.0 F 72 18 97/43 L 98 11/18/19 14:00 11/18/19 14:00 11/18/19 14:00 11/18/19 14:00 11/18/19 14:00 Oxygen Flow Rate (L/min) 3 Oxygen Delivery Method Nasal Cannula Weight: 134 lb 0.657 oz Body Mass Index (BMI) 26.4 Intake and Output for Last 24 Hours 11/16/19 11/17/19 11/18/19 23:59 23:59 23:59 Intake Total 500 / 500 480 / 480 Output Total 100 / 100 860 / 860 Balance 400 / 400 -380 / -380 Laboratory Results 11/18/19 05:32: WBC 5.3, RBC 3.57 L, Hgb 9.9 L, Hct 32.5 L, MCV 91.0, MCH 27.7, MCHC 30.5 L, RDW Std Deviation 41.3, RDW Coeff of Siobhan 12.4, Plt Count 215, MPV 8.4, Immature Gran % (Auto) 0.400, Neut % (Auto) 49.1, Lymph % (Auto) 41.1 H, King % (Auto) 7.9, Eos % (Auto) 0.9, Baso % (Auto) 0.6, Absolute Neuts (auto) 2.6, Absolute Lymphs (auto) 2.19, Nucleated RBC % 0 11/18/19 05:32: Sodium 139, Potassium 3.9, Chloride 105, Carbon Dioxide 32.0, Anion Gap 2 L, BUN 16, Creatinine 0.41 L, Estim Creat Clear Calc 103.50, Est GFR (MDRD) Af Amer 203, Est GFR (MDRD) Non-Af 168, BUN/Creatinine Ratio 39.1 H, Glucose 96, Calcium 8.6, Total Bilirubin 0.30, AST 15, ALT 15, Alkaline Phosphatase 61, Total Protein 6.0 L, Albumin 2.9 L, Globulin 3.1, Albumin/Globulin Ratio 0.9 Current Medications Acetaminophen (Tylenol) 1,000 mg PO Q8 PENDING SALE TO [facility] Last Admin: 11/18/19 14:50 Dose: 1,000 mg Documented by: Albuterol Sulfate (Ventolin Aerosols) 2.5 mg INHALATION Q4H PRN PRN PRN Reason: Shortness of breath, wheezing Atorvastatin Calcium (Lipitor) 40 mg PO QHS PENDING SALE TO [facility] Last Admin: 11/17/19 20:33 Dose: 40 mg Documented by: Carvedilol (Coreg) 12.5 mg PO BID PENDING SALE TO [facility] Last Admin: 11/18/19 08:32 Dose: 12.5 mg Documented by: Digoxin (Lanoxin) 250 mcg PO DAILY PENDING SALE TO [facility] Last Admin: 11/18/19 08:33 Dose: 250 mcg Documented by: Furosemide (Lasix) 40 mg PO DAILY PENDING SALE TO [facility] Last Admin: 11/18/19 08:33 Dose: 40 mg Documented by: Heparin Sodium (Porcine) (Heparin Na) 5,000 unit SC Q8 PENDING SALE TO [facility] Last Admin: 11/18/19 14:51 Dose: 5,000 unit Documented by: Sodium Chloride () 250 mls @ 15 mls/hr IV .[id number] PRN PRN Reason: Saline Flush Sodium Chloride () 250 mls @ 15 mls/hr IV .[id number] PRN PRN Reason: Additional IVPB Infusion Ipratropium Dawn (Atrovent) 0.5 mg INHALATION Q6HWA.RT PENDING SALE TO [facility] Last Admin: 11/18/19 12:43 Dose: 0.5 mg Documented by: Levothyroxine Sodium (Synthroid) 25 mcg PO DAILY@0600 PENDING SALE TO [facility] Last Admin: 11/18/19 05:33 Dose: 25 mcg Documented by: Lidocaine (Lidoderm Patch) 1 patch TOPICAL DAILY PENDING SALE TO [facility]; Protocol Last Admin: 11/18/19 03:10 Dose: 1 patch Documented by: Losartan Potassium (Cozaar) 50 mg PO DAILY PENDING SALE TO [facility] Last Admin: 11/18/19 08:32 Dose: 50 mg Documented by: Methylprednisolone (Medrol Dosepak) 8 mg PO 0800 PENDING SALE TO [facility]; Taper Stop: 11/24/19 08:59 Mirabegron (Myrbetriq) 25 mg PO DAILY PENDING SALE TO [facility] Last Admin: 11/18/19 08:33 Dose: 25 mg Documented by: Nutritional Formula (Lactose Free) (Ensure Enlive) 120 ml PO 4X/DAY PENDING SALE TO [facility] Last Admin: 11/18/19 15:00 Dose: 120 ml Documented by: Ondansetron HCl (Zofran) 4 mg IV Q8H PRN PRN PRN Reason: NAUSEA/VOMITING Oxycodone HCl (Oxyir) 10 mg PO Q6H PRN PRN PRN Reason: Pain Score 6-10/10 Last Admin: 11/18/19 14:50 Dose: 10 mg Documented by: Paroxetine HCl (Paxil) 40 mg PO DAILY PENDING SALE TO [facility] Last Admin: 11/18/19 08:34 Dose: 40 mg Documented by: Sodium Chloride () 10 - 40 ml IV UD PRN PRN Reason: SALINE FLUSH Last Admin: 11/18/19 16:33 Dose: 10 ml Documented by: Tamsulosin HCl (Flomax) 0.4 mg PO QHS PENDING SALE TO [facility] Last Admin: 11/17/19 20:32 Dose: 0.4 mg Documented by: STROKE Vital Signs/Narrative: Vital Signs Temp Pulse Resp BP Pulse Ox 11/18/19 14:00 99.0 F 72 18 97/43 L 98 Assessment/Plan Hospitalist Note: I am seeing this patient in conjunction with Chau Judd. I independently seen and examined the patient. Progress note above, laboratory data and imaging studies reviewed and I concur with the above work-up and treatment plan. Patient still having right knee pain, minimal improvement. She is still not able to ambulate. Denies fever or chills. Her vital signs are stable. She is on oxygen at 3 L chronically, at her baseline. - Physical Exam General: Alert, Oriented x3, Cooperative, No apparent distress. HEENT: Atraumatic, PERRLA, EOMI. Neck: Supple, No JVD, Negative Carotid Bruits, Trachea Midline, Thyroid Normal. Lungs: Clear to auscultation, Normal air movement, No rhonchi, No wheeze, No rales. Cardiovascular: Regular rate, Regular Rhythm, Normal S1, Normal S2, PMI Normal. Abdomen: Bowel Sounds Present, Soft, Non Tender, Non-Distended, No Hepato-splenomegaly. Extremities: No clubbing, No cyanosis, No edema Skin: No rashes, No breakdown Neurological: Cranial nerves are intact, neuro grossly intact Vital Signs are stable. Assessment and plan: #1 intractable right knee pain: CT scan of the right knee revealed moderate degree of joint space narrowing, minimal joint effusion. MRI cannot be done because patient has pacemaker and ICD. She is on OxyIR PRN for pain, p.o. Medrol Dosepak. She reported minimal improvement of her symptoms. She is still not able to ambulate. Orthopedic surgery consulted, awaiting their recommendation. Plan to continue same treatment, PT OT evaluation and treatment. #2 other chronic medical problems: Stable, continue current medications as above. This note was generated with [employer] dictation software. It may contain incorrect words, spelling, and punctuation that were not noted in checking the note before signing. OBSV E&M: [id number] Subsequent observation care L2
[2019-11-18] MEDS: Acetaminophen 500 MG Tablet 1000 MG PO ×2 (14:50→21:56)
--- NOTE | 2019-11-18 15:23 | CASEMGMT ---
ASTRID OWEN in to discuss PADILLA form with patient. ASTRID OWEN explained PADILLA form to patient, patient voiced understanding. Patient signed PADILLA form, original filed in chart. ASTRID OWEN provided patient with signed copy. Patient had no further questions or concerns at this time.
[2019-11-18] MEDS: 0.9% Saline Lock 10 ML Syringe IV (16:33)
[2019-11-18] MEDS: dexAMETHasone 4 MG/ML Vial 8 MG IV (16:33)
[2019-11-18] MEDS: Tamsulosin HCl 0.4 MG Capsule PO (21:57)
[2019-11-18] MEDS: Atorvastatin Calcium 40 MG Tablet PO (21:57)
[2019-11-19] VITALS (8 sets, daily range): BP systolic 99–118; BP diastolic 63–81; PULSE 53–93; RESP 16–18; TEMP 36.2–36.9; O2SAT 94–98
[2019-11-19] MEDS: oxyCODONE 5 MG Tablet 10 MG PO ×3 (05:48→17:56)
[2019-11-19] MEDS: Acetaminophen 500 MG Tablet 1000 MG PO ×3 (05:48→21:27)
[2019-11-19] MEDS: Levothyroxine 25 MCG TABLET PO (05:49)
[2019-11-19] MEDS: Heparin Injection (Vial) 5,000 UNIT/ML VIAL 5000 UNIT SC ×3 (05:50→21:28)
[2019-11-19] MEDS: Ipratropium 0.5 MG/2.5 ML SOLUTION INHALATION ×3 (07:03→19:50)
[2019-11-19] MEDS: MethylPREDNISolone DosePak 4 MG BOX PO ×4 (08:13→21:27)
[2019-11-19] MEDS: Lidocaine 5% Patch 1 PATCH TOPICAL (08:14)
[2019-11-19] MEDS: Carvedilol 12.5 MG Tablet PO ×2 (08:14→21:27)
[2019-11-19] MEDS: Losartan Potassium 50 MG Tablet PO (08:14)
[2019-11-19] MEDS: Mirabegron 25 MG TAB.ER.24H PO (08:15)
[2019-11-19] MEDS: Paroxetine 20 MG Tablet 40 MG PO (08:16)
[2019-11-19] MEDS: Furosemide 40 MG Tablet PO (08:16)
[2019-11-19] MEDS: Digoxin 250 MCG Tablet PO (08:16)
--- NOTE | 2019-11-19 11:22 | PCM.PN.HOSP ---
<Chau Judd - Last Filed: 11/19/19 11:22> Patient Problems: Active and Suspected Problems (Last Updated 11/19/19 @ 08:[address] Antoine Arzola MD) Intractable right knee pain (Acute) Debility (Acute) Reason for Visit: intractable knee pain Subjective: improvement in pain overnight. Now 08/25. Pt able to stand and take two steps today. She agrees to go to SNF if it is near to her house. No fever/chills. No SOB/cough. No numbness/tingling in the distal extremity. Vitals/I&O's: Vital Signs Temp Pulse Resp BP Pulse Ox 98.5 F 53 L 18 104/67 95 11/19/19 08:09 11/19/19 08:09 11/19/19 08:09 11/19/19 08:09 11/19/19 08:09 Oxygen Flow Rate (L/min) 3 Oxygen Delivery Method Nasal Cannula Weight: 135 lb 9.349 oz Body Mass Index (BMI) 26.4 Intake and Output for Last 24 Hours 11/17/19 11/18/19 11/19/19 23:59 23:59 23:59 Intake Total 500 / 500 1200 / 1200 800 / 800 Output Total 100 / 100 2110 / 2110 900 / 900 Balance 400 / 400 -910 / -910 -100 / -100 General: Alert, Oriented x3, Cooperative HEENT: Atraumatic, PERRLA, EOMI, Normocephalic Neck: Supple, No JVD, Negative Carotid Bruits Lungs: Clear to auscultation, Normal air movement Cardiovascular: Regular rate, No murmurs Abdomen: Bowel Sounds Present, Soft, Non Tender Extremities: No edema, Capillary Refill Less than 3 Seconds Skin: No rashes, No breakdown Musculoskeletal: Tenderness - right knee. extension improved. distal pms intact Neurological: Cranial nerves II-XII grossly intact Psych/Mental Status: Normal Affect, Appropriate Current Medications Acetaminophen (Tylenol) 1,000 mg PO Q8 REPLACED BY [facility] Last Admin: 11/19/19 05:48 Dose: 1,000 mg Documented by: Albuterol Sulfate (Ventolin Aerosols) 2.5 mg INHALATION Q4H PRN PRN PRN Reason: Shortness of breath, wheezing Atorvastatin Calcium (Lipitor) 40 mg PO QHS REPLACED BY [facility] Last Admin: 11/18/19 21:57 Dose: 40 mg Documented by: Carvedilol (Coreg) 12.5 mg PO BID REPLACED BY [facility] Last Admin: 11/19/19 08:14 Dose: 12.5 mg Documented by: Digoxin (Lanoxin) 250 mcg PO DAILY REPLACED BY [facility] Last Admin: 11/19/19 08:16 Dose: 250 mcg Documented by: Furosemide (Lasix) 40 mg PO DAILY REPLACED BY [facility] Last Admin: 11/19/19 08:16 Dose: 40 mg Documented by: Heparin Sodium (Porcine) (Heparin Na) 5,000 unit SC Q8 REPLACED BY [facility] Last Admin: 11/19/19 05:50 Dose: 5,000 unit Documented by: Sodium Chloride () 250 mls @ 15 mls/hr IV .[id number] PRN PRN Reason: Saline Flush Sodium Chloride () 250 mls @ 15 mls/hr IV .[id number] PRN PRN Reason: Additional IVPB Infusion Ipratropium Irene (Atrovent) 0.5 mg INHALATION Q6HWA.RT REPLACED BY [facility] Last Admin: 11/19/19 07:03 Dose: 0.5 mg Documented by: Levothyroxine Sodium (Synthroid) 25 mcg PO DAILY@0600 REPLACED BY [facility] Last Admin: 11/19/19 05:49 Dose: 25 mcg Documented by: Lidocaine (Lidoderm Patch) 1 patch TOPICAL DAILY REPLACED BY [facility]; Protocol Last Admin: 11/19/19 08:14 Dose: 1 patch Documented by: Losartan Potassium (Cozaar) 50 mg PO DAILY REPLACED BY [facility] Last Admin: 11/19/19 08:14 Dose: 50 mg Documented by: Methylprednisolone (Medrol Dosepak) 8 mg PO 0800 REPLACED BY [facility]; Taper Stop: 11/24/19 08:59 Last Admin: 11/19/19 08:13 Dose: 8 mg Documented by: Mirabegron (Myrbetriq) 25 mg PO DAILY REPLACED BY [facility] Last Admin: 11/19/19 08:15 Dose: 25 mg Documented by: Nutritional Formula (Lactose Free) (Ensure Enlive) 120 ml PO 4X/DAY REPLACED BY [facility] Last Admin: 11/19/19 08:15 Dose: 120 ml Documented by: Ondansetron HCl (Zofran) 4 mg IV Q8H PRN PRN PRN Reason: NAUSEA/VOMITING Oxycodone HCl (Oxyir) 10 mg PO Q6H PRN PRN PRN Reason: Pain Score 6-10/10 Last Admin: 11/19/19 05:48 Dose: 10 mg Documented by: Paroxetine HCl (Paxil) 40 mg PO DAILY REPLACED BY [facility] Last Admin: 11/19/19 08:16 Dose: 40 mg Documented by: Sodium Chloride () 10 - 40 ml IV UD PRN PRN Reason: SALINE FLUSH Last Admin: 11/18/19 16:33 Dose: 10 ml Documented by: Tamsulosin HCl (Flomax) 0.4 mg PO QHS REPLACED BY [facility] Last Admin: 11/18/19 21:57 Dose: 0.4 mg Documented by: STROKE Vital Signs/Narrative: Vital Signs Temp Pulse Resp BP Pulse Ox 11/19/19 08:09 98.5 F 53 L 18 104/67 95 Medical Necessity - Tobacco Use Smoking Status: Former smoker Tobacco Use: Cigarettes Assessment/Plan All Active Problems (Last Updated 11/19/19 @ 08:[address] Antoine Arzola MD) Intractable right knee pain (Acute) Debility (Acute) 1. Intractable right knee pain with inability to ambulate - pain localized to medial aspect of the right knee. xray neg. felt felt/heard pop in this location on twisting. -IV decadron x1 last night, started medrol dose pack today. -Cannot have MRI 2/2 AICD -CT knee joint space narrowing femoral patellar joint, minimal joint effusion -Ortho follow up in 2 weeks if possible. -continue WB as tolerated. 2. COPD with chronic hypoxic resp failure - baseline 3 lpm. no exacerbation. provide aerosols as needed + home meds. 3. Hx Takotsubo CM, chronic systolic CHF, has ICD - continue coreg, dig, statin, losartan 4. Hx severe osteoarthritis - right hip. in pain management with Dr. Phipps. pain controlled since last injection () 5. Hx Hep A. 6. HLD - statin 7. Hx Vtach - coreg, digoxin 8. Hypothyroid - synthroid DVT ppx: lovenox DC planning: pt agreeable to SNF This patient was seen by Chau Judd PA-C under the supervision of Doctor Ness <Antoine Arzola - Last Filed: 11/19/19 13:02> Vitals/I&O's: Vital Signs Temp Pulse Resp BP Pulse Ox 98.5 F 53 L 18 104/67 95 11/19/19 08:09 11/19/19 08:09 11/19/19 08:09 11/19/19 08:09 11/19/19 08:09 Oxygen Flow Rate (L/min) 3 Oxygen Delivery Method Nasal Cannula Weight: 135 lb 9.349 oz Body Mass Index (BMI) 26.4 Intake and Output for Last 24 Hours 11/17/19 11/18/19 11/19/19 23:59 23:59 23:59 Intake Total 500 / 500 1200 / 1200 1280 / 1280 Output Total 100 / 100 2110 / 2110 1050 / 1050 Balance 400 / 400 -910 / -910 230 / 230 Current Medications Acetaminophen (Tylenol) 1,000 mg PO Q8 REPLACED BY [facility] Last Admin: 11/19/19 05:48 Dose: 1,000 mg Documented by: Albuterol Sulfate (Ventolin Aerosols) 2.5 mg INHALATION Q4H PRN PRN PRN Reason: Shortness of breath, wheezing Atorvastatin Calcium (Lipitor) 40 mg PO QHS REPLACED BY [facility] Last Admin: 11/18/19 21:57 Dose: 40 mg Documented by: Carvedilol (Coreg) 12.5 mg PO BID REPLACED BY [facility] Last Admin: 11/19/19 08:14 Dose: 12.5 mg Documented by: Digoxin (Lanoxin) 250 mcg PO DAILY REPLACED BY [facility] Last Admin: 11/19/19 08:16 Dose: 250 mcg Documented by: Furosemide (Lasix) 40 mg PO DAILY REPLACED BY [facility] Last Admin: 11/19/19 08:16 Dose: 40 mg Documented by: Heparin Sodium (Porcine) (Heparin Na) 5,000 unit SC Q8 REPLACED BY [facility] Last Admin: 11/19/19 05:50 Dose: 5,000 unit Documented by: Sodium Chloride () 250 mls @ 15 mls/hr IV .[id number] PRN PRN Reason: Saline Flush Sodium Chloride () 250 mls @ 15 mls/hr IV .[id number] PRN PRN Reason: Additional IVPB Infusion Ipratropium Irene (Atrovent) 0.5 mg INHALATION Q6HWA.RT REPLACED BY [facility] Last Admin: 11/19/19 07:03 Dose: 0.5 mg Documented by: Levothyroxine Sodium (Synthroid) 25 mcg PO DAILY@0600 REPLACED BY [facility] Last Admin: 11/19/19 05:49 Dose: 25 mcg Documented by: Lidocaine (Lidoderm Patch) 1 patch TOPICAL DAILY REPLACED BY [facility]; Protocol Last Admin: 11/19/19 08:14 Dose: 1 patch Documented by: Losartan Potassium (Cozaar) 50 mg PO DAILY REPLACED BY [facility] Last Admin: 11/19/19 08:14 Dose: 50 mg Documented by: Methylprednisolone (Medrol Dosepak) 4 mg PO 1200,1700 REPLACED BY [facility]; Taper Stop: 11/24/19 08:59 Last Admin: 11/19/19 11:33 Dose: 4 mg Documented by: Mirabegron (Myrbetriq) 25 mg PO DAILY REPLACED BY [facility] Last Admin: 11/19/19 08:15 Dose: 25 mg Documented by: Nutritional Formula (Lactose Free) (Ensure Enlive) 120 ml PO 4X/DAY REPLACED BY [facility] Last Admin: 11/19/19 08:15 Dose: 120 ml Documented by: Ondansetron HCl (Zofran) 4 mg IV Q8H PRN PRN PRN Reason: NAUSEA/VOMITING Oxycodone HCl (Oxyir) 10 mg PO Q6H PRN PRN PRN Reason: Pain Score 6-10/10 Last Admin: 11/19/19 11:38 Dose: 10 mg Documented by: Paroxetine HCl (Paxil) 40 mg PO DAILY REPLACED BY [facility] Last Admin: 11/19/19 08:16 Dose: 40 mg Documented by: Sodium Chloride () 10 - 40 ml IV UD PRN PRN Reason: SALINE FLUSH Last Admin: 11/18/19 16:33 Dose: 10 ml Documented by: Tamsulosin HCl (Flomax) 0.4 mg PO QHS REPLACED BY [facility] Last Admin: 11/18/19 21:57 Dose: 0.4 mg Documented by: Assessment/Plan Hospitalist Note: I am seeing this patient in conjunction with Chau Judd. I independently seen and examined the patient. Progress note above, laboratory data and imaging studies reviewed and I concur with the above treatment plan. Patient still complaining of right knee pain, it is 7 out of 10 in severity today, getting better but still there. She was able to walk for few steps with a walker. Her vital signs are stable. - Physical Exam General: Alert, Oriented x3, Cooperative, No apparent distress. HEENT: Atraumatic, PERRLA, EOMI. Neck: Supple, No JVD, Negative Carotid Bruits, Trachea Midline, Thyroid Normal. Lungs: Clear to auscultation, Normal air movement, No rhonchi, No wheeze, No rales. Cardiovascular: Regular rate, Regular Rhythm, Normal S1, Normal S2, PMI Normal. Abdomen: Bowel Sounds Present, Soft, Non Tender, Non-Distended, No Hepato-splenomegaly. Extremities: No clubbing, No cyanosis, No edema Skin: No rashes, No breakdown Neurological: Cranial nerves are intact, neuro grossly intact Vital Signs are stable. Assessment and plan: #1 intractable right knee pain: She is on OxyIR PRN for pain and Medrol Dosepak. Reported minimal improvement, started to ambulate a few steps but still painful. CT scan of the right knee revealed moderate degree of joint space narrowing, minimal joint effusion. MRI cannot be done because patient has pacemaker and ICD. Case discussed with orthopedic surgery. Plan to continue same treatment, PT OT evaluation and treatment, patient may need placement to snf facility.. #2 other chronic medical problems: Stable, continue current medications as above. This note was generated with [employer] dictation software. It may contain incorrect words, spelling, and punctuation that were not noted in checking the note before signing. OBSV E&M: [id number] Subsequent observation care L2
--- NOTE | 2019-11-19 13:42 | CON.PCM_ITS ---
Reason for Consult Date of Consultation: 11/19/19 Reason for Consultation: Knee pain. Requested by Dr Arzola History of Present Illness: The patient is a 59 year old F with a history of right hip osteoarthritis knee with right knee pain. Patient notes she was getting in the hospital van to go see the pain medicine doctor at the hospital. She twisted her knee. Since that time she had difficulty weightbearing. She did receive some IV steroids yesterday and notes some significant improvement in the pain. She has been able to get up with physical therapy. She did have a corticosteroid injection to the right hip on Thursday which showed only short-term relief of her hip pain. She also notes today that she has pain going down the back of her leg and reports a history of sciatica. Concerning her knee she rates it as a 7 out of 10. She localizes the pain to the medial joint line. She does not report any instability. She notes that at the time the injury there was a large pop. There is some moderate swelling of the knee. No fevers chills or night sweats. Past Medical History Past Medical History (Chronic Problems): Chronic Problems (Last Updated 11/19/19 @ 08:[address] Antoine Arzola MD) Smoking greater than 30 pack years (Chronic) COPD (chronic obstructive pulmonary disease) (Chronic) COPD exacerbation (Chronic) Essential hypertension (Chronic) Elevated LFTs (Chronic) Hepatitis A (Chronic) NSTEMI (non-ST elevated myocardial infarction) (Chronic) RBBB (right bundle branch block) (Chronic) Hyperlipidemia (Chronic) Cardiomyopathy, dilated (Chronic) Nonrheumatic mitral valve regurgitation (Chronic) Chronic systolic congestive heart failure (Chronic) Biventricular automatic implantable cardioverter defibrillator in situ (Chronic ~01/05/15) RV lead implantation complicated by tamponade -pericardiocentesis done 01/05/15 Atherosclerotic heart disease of [place] coronary artery without angina pectoris (Chronic) Ventricular tachycardia (Chronic) Medical History: Medical History (Last Updated 11/19/19 @ 08:[address] Antoine Arzola MD) RBBB (right bundle branch block) (Chronic) I45.10 Hyperlipidemia (Chronic) E78.5 Cardiomyopathy, dilated (Chronic) I42.0 Nonrheumatic mitral valve regurgitation (Chronic) I34.0 Chronic systolic congestive heart failure (Chronic) I50.22 Biventricular automatic implantable cardioverter defibrillator in situ (Chronic) Onset Date: ~01/05/15 Z95.810 RV lead implantation complicated by tamponade -pericardiocentesis done 01/05/15 Atherosclerotic heart disease of [place] coronary artery without angina pectoris (Chronic) I25.10 Ventricular tachycardia (Chronic) I47.2 Anxiety F41.9 COPD (chronic obstructive pulmonary disease) J44.9 Depression F32.9 Cardiac tamponade (Inactive) I31.4 Obesity (BMI 30.0-34.9) (Inactive) E66.9 Allergies hydrocodone bitartrate [From Vicodin] Allergy (Verified 11/17/19 14:29) Hives Penicillins Allergy (Verified 11/17/19 14:29) Anaphylaxis Home Medications: Ambulatory Orders Medication Instructions Recorded Losartan Potassium [Cozaar] 50 mg PO DAILY 04/16/15 albuterol sulfate 90 mcg/actuation 2 puff INHALATION Q4H PRN 06/30/17 aerosol inhaler atorvastatin 40 mg tablet 40 mg PO QHS 06/30/17 Levothyroxine [Synthroid] 25 mcg PO DAILY 12/10/17 Paroxetine HCl [Paxil] 40 mg PO DAILY 12/10/17 Tamsulosin HCl [Flomax] 0.4 mg PO QHS 12/10/17 Budesonide/Formoterol 160/4.5 2 puff INHALATION BID 03/01/19 [Symbicort 160/4.5 Mcg Inhaler (SP)] Digoxin [Lanoxin] 250 mcg PO DAILY 03/01/19 Albuterol Aerosols [Ventolin 2.5 mg INHALATION Q4H PRN PRN #1 03/10/19 Aerosols] Furosemide [Lasix] 40 mg PO DAILY #90 tab 03/10/19 hydrocodone 5 mg-acetaminophen 325 1 tab PO Q12H PRN tab 11/15/19 mg tablet Carvedilol [Coreg] 12.5 mg PO BID 11/17/19 Hydrocodone Bitart/Apap 5-325 2 tab PO Q6H PRN PRN 3 Days #24 tab 11/17/19 [[place] 5MG-325MG] Mirabegron [Myrbetriq] 25 mg PO DAILY 11/17/19 Tiotropium [place] [Spiriva 2 puff INHALATION DAILY 11/17/19 Respimat] Surgical History: Surgical History (Last Reviewed 11/15/19 @ 09:46 by Arlette Beckwith DICE MANAGER, DICE MANAGER-C) History of tubal ligation Z98.51 Status post pericardiocentesis Z98.890 Surgical History: - - x 2, hysterectomy, AICD/pacemaker placement. Psychiatric History: Anxiety, Depression MANAGER BANQUET History: No pertinent MANAGER BANQUET history Lives: With Family Smoking Status: Former smoker Tobacco Use: Cigarettes Alcohol: None Drugs: None - *Family History Maternal Family History: Family History (Last Reviewed 11/17/19 @ 18:20 by Chau KENDALL PA) Father CAD (coronary artery disease) Hypertension Mother CAD (coronary artery disease) Hypertension Diabetes Brother CAD (coronary artery disease) History Items: Diabetes, Heart Disease, Hypertension Paternal Family History: Family History (Last Reviewed 11/17/19 @ 18:20 by Chau KENDALL PA) Father CAD (coronary artery disease) Hypertension Mother CAD (coronary artery disease) Hypertension Diabetes Brother CAD (coronary artery disease) History Items: Heart Disease, Hypertension Review of Systems Constitutional: Denies: Chills, Fever, Weight Change HEENT: Denies: Head Aches, Sinus Congestion, Sinus Drainage Cardiovascular: Denies: Chest Pain, Palpitations Respiratory: Denies: Cough, Shortness of breath at rest, Sputum production Gastrointestinal: Denies: Abdominal Pain, Nausea, Vomiting Genitourinary: Denies: Dysuria Musculoskeletal: Reports: Joint Pain, Joint swelling, Joint Tenderness Skin: Denies: Rash, Wounds Neurological: Denies: Numbness, Tingling, Focal weakness Psychiatric: Denies: Anxiety, Depression, Homicidal Ideations, Suicidal Ideations Hematologic/ Lymphatic: Denies: Easy Bruising, Easy Bleeding Patient Problems: Active and Suspected Problems (Last Updated 11/19/19 @ 08:[address] Antoine Arzola MD) Intractable right knee pain (Acute) Debility (Acute) Objective: Previous right hip radiographs, right lumbar radiographs and recent knee radiographs and CT scan were reviewed. These show a right hip with severe osteoarthritis complete loss of joint space subchondral sclerosis and flattening of the femoral head consistent with severe osteoarthritis of the hip. The back exam shows mild arthrosis of the back with overall relatively good alignment. Knee exam shows varus alignment. These are nonweightbearing films the patient does have medial joint space narrowing, subchondral sclerosis and marginal osteophyte formation. CT scan is also consistent with this. No soft tissue defects noted on CT scan. Overall consistent with nonweightbearing films that show moderate arthrosis of the medial compartment. - Physical Exam Vitals/I&O's: Vital Signs Temp Pulse Resp BP Pulse Ox 98.5 F 76 16 104/67 95 11/19/19 08:09 11/19/19 13:23 11/19/19 13:23 11/19/19 08:09 11/19/19 08:09 Oxygen Flow Rate (L/min) 3 Oxygen Delivery Method Nasal Cannula Weight: 135 lb 9.349 oz Body Mass Index (BMI) 26.4 Intake and Output for Last 24 Hours 11/17/19 11/18/19 11/19/19 23:59 23:59 23:59 Intake Total 500 / 500 1200 / 1200 1280 / 1280 Output Total 100 / 100 2110 / 2110 1050 / 1050 Balance 400 / 400 -910 / -910 230 / 230 General: Alert, Oriented x3, Cooperative HEENT: Atraumatic Oral: Moist Mucosa Neck: No JVD Lungs: - - Labored breathing Cardiovascular: - - regular pulse rate Abdomen: Non-Distended Extremities: - - Right lower extremity: Hip shows range of motion to 45 degrees with associated crepitus with motion. Minimal internal and external rotation less than 5 degrees in both directions. Hip pain is re-created with any hip motion. Knee shows moderate tenderness palpation over the medial joint line. Collateral ligaments are stable to varus and valgus stress testing. Mildly correctable varus alignment. Range of motion is 5-95. Mild effusion. Skin is intact. Skin: No rashes, No breakdown Musculoskeletal: Tenderness Neurological: Cranial nerves II-XII grossly intact Psych/Mental Status: Appropriate Current Medications Acetaminophen (Tylenol) 1,000 mg PO Q8 [facility] Last Admin: 11/19/19 05:48 Dose: 1,000 mg Documented by: Albuterol Sulfate (Ventolin Aerosols) 2.5 mg INHALATION Q4H PRN PRN PRN Reason: Shortness of breath, wheezing Atorvastatin Calcium (Lipitor) 40 mg PO QHS [facility] Last Admin: 11/18/19 21:57 Dose: 40 mg Documented by: Carvedilol (Coreg) 12.5 mg PO BID [facility] Last Admin: 11/19/19 08:14 Dose: 12.5 mg Documented by: Digoxin (Lanoxin) 250 mcg PO DAILY [facility] Last Admin: 11/19/19 08:16 Dose: 250 mcg Documented by: Furosemide (Lasix) 40 mg PO DAILY [facility] Last Admin: 11/19/19 08:16 Dose: 40 mg Documented by: Heparin Sodium (Porcine) (Heparin Na) 5,000 unit SC Q8 [facility] Last Admin: 11/19/19 05:50 Dose: 5,000 unit Documented by: Sodium Chloride () 250 mls @ 15 mls/hr IV .[id number] PRN PRN Reason: Saline Flush Sodium Chloride () 250 mls @ 15 mls/hr IV .[id number] PRN PRN Reason: Additional IVPB Infusion Ipratropium [place] (Atrovent) 0.5 mg INHALATION Q6HWA.RT [facility] Last Admin: 11/19/19 13:23 Dose: 0.5 mg Documented by: Levothyroxine Sodium (Synthroid) 25 mcg PO DAILY@0600 [facility] Last Admin: 11/19/19 05:49 Dose: 25 mcg Documented by: Lidocaine (Lidoderm Patch) 1 patch TOPICAL DAILY [facility]; Protocol Last Admin: 11/19/19 08:14 Dose: 1 patch Documented by: Losartan Potassium (Cozaar) 50 mg PO DAILY [facility] Last Admin: 11/19/19 08:14 Dose: 50 mg Documented by: Methylprednisolone (Medrol Dosepak) 4 mg PO 1200,1700 [facility]; Taper Stop: 11/24/19 08:59 Last Admin: 11/19/19 11:33 Dose: 4 mg Documented by: Mirabegron (Myrbetriq) 25 mg PO DAILY [facility] Last Admin: 11/19/19 08:15 Dose: 25 mg Documented by: Nutritional Formula (Lactose Free) (Ensure Enlive) 120 ml PO 4X/DAY [facility] Last Admin: 11/19/19 08:15 Dose: 120 ml Documented by: Ondansetron HCl (Zofran) 4 mg IV Q8H PRN PRN PRN Reason: NAUSEA/VOMITING Oxycodone HCl (Oxyir) 10 mg PO Q6H PRN PRN PRN Reason: Pain Score 6-10/10 Last Admin: 11/19/19 11:38 Dose: 10 mg Documented by: Paroxetine HCl (Paxil) 40 mg PO DAILY [facility] Last Admin: 11/19/19 08:16 Dose: 40 mg Documented by: Sodium Chloride () 10 - 40 ml IV UD PRN PRN Reason: SALINE FLUSH Last Admin: 11/18/19 16:33 Dose: 10 ml Documented by: Tamsulosin HCl (Flomax) 0.4 mg PO QHS [facility] Last Admin: 11/18/19 21:57 Dose: 0.4 mg Documented by: Assessment/Plan All Active Problems (Last Updated 11/19/19 @ 08:[address] Antoine Arzola MD) Intractable right knee pain (Acute) Debility (Acute) [place] patient has diagnosis of radiculopathy, severe right hip osteoarthritis and moderate knee osteoarthritis. She has not responded well to previous corticosteroid injections in her hip. She does seem to be doing better after administration of IV steroids yesterday. This time I recommended we manage the patient with short course of steroids including IV and oral. Recommend we hold off on the injections that she is recently had hip injections and is currently a patient at the hospital. She is receiving breathing treatments today. Overall I did discuss the patient that we may need to consider appropriate medical and physical optimization in order to move forward with surgical intervention. Based on the radiographs and examination her hip is significantly more severe in nature of osteoarthritis than her knee. In fact the hip may be causing some of the associated difficulty with weightbearing and radiating pain to the knee. However she definitely feels tender to palpation over the medial joint line and is evidence of medial arthrosis of the knee as well. At this time I would like the patient to proceed with the course of IV and oral steroids and present to my office in 2 weeks after she has been discharged and been able to participate in some rehabilitation. She will need to be medically and physically optimized prior to considering any elective surgeries. In the questions or concerns please contact orthopedics. [facility] Office:
[2019-11-19] MEDS: Tamsulosin HCl 0.4 MG Capsule PO (21:27)
[2019-11-19] MEDS: Atorvastatin Calcium 40 MG Tablet PO (21:27)
[2019-11-20] VITALS (9 sets, daily range): BP systolic 111–121; BP diastolic 61–72; PULSE 65–80; RESP 16–18; TEMP 36.6–37.2; O2SAT 96–98
[2019-11-20] MEDS: oxyCODONE 5 MG Tablet 10 MG PO ×4 (00:09→18:33)
[2019-11-20] MEDS: Acetaminophen 500 MG Tablet 1000 MG PO ×3 (06:27→21:11)
[2019-11-20] MEDS: Heparin Injection (Vial) 5,000 UNIT/ML VIAL 5000 UNIT SC ×3 (06:27→21:11)
[2019-11-20] MEDS: Levothyroxine 25 MCG TABLET PO (06:27)
[2019-11-20] MEDS: Ipratropium 0.5 MG/2.5 ML SOLUTION INHALATION ×3 (06:56→19:48)
[2019-11-20] MEDS: MethylPREDNISolone DosePak 4 MG BOX PO ×4 (09:05→21:11)
[2019-11-20] MEDS: Lidocaine 5% Patch 1 PATCH TOPICAL (10:30)
[2019-11-20] MEDS: Furosemide 40 MG Tablet PO (10:33)
[2019-11-20] MEDS: Paroxetine 20 MG Tablet 40 MG PO (10:33)
[2019-11-20] MEDS: Digoxin 250 MCG Tablet PO (10:34)
[2019-11-20] MEDS: Carvedilol 12.5 MG Tablet PO ×2 (10:34→21:11)
[2019-11-20] MEDS: Losartan Potassium 50 MG Tablet PO (10:34)
[2019-11-20] MEDS: Mirabegron 25 MG TAB.ER.24H PO (10:35)
--- NOTE | 2019-11-20 12:54 | PCM.PN.HOSP ---
<Chau Judd - Last Filed: 11/20/19 12:54> Patient Problems: Active and Suspected Problems (Last Updated 11/19/19 @ 08:[address] Antoine Arzola MD) Intractable right knee pain (Acute) Debility (Acute) Reason for Visit: knee pain Subjective: Pt agreeable to SNF placement. She understands that if she cannot at least get up and walk to the bathroom she needs further rehab including SNF. She notes further improvement in her knee pain today. No numbness/tingling. No fever/chills. No SOB/cough. Vitals/I&O's: Vital Signs Temp Pulse Resp BP Pulse Ox 98.9 F 76 18 121/69 H 98 11/20/19 09:00 11/20/19 10:20 11/20/19 09:00 11/20/19 09:00 11/20/19 09:00 Oxygen Flow Rate (L/min) 3 Oxygen Delivery Method Nasal Cannula Weight: 135 lb 2.294 oz Body Mass Index (BMI) 26.4 Intake and Output for Last 24 Hours 11/18/19 11/19/19 11/20/19 23:59 23:59 23:59 Intake Total 1200 / 1200 1760 / 2160 1300 / 1300 Output Total 2110 / 2110 1550 / 1800 1150 / 1150 Balance -910 / -910 210 / 360 150 / 150 General: Alert, Oriented x3, Cooperative HEENT: Atraumatic, PERRLA, EOMI, Normocephalic Neck: Supple, No JVD, Negative Carotid Bruits Lungs: Clear to auscultation, Normal air movement Cardiovascular: Regular rate, No murmurs Abdomen: Bowel Sounds Present, Soft, Non Tender Extremities: No edema, Capillary Refill Less than 3 Seconds Skin: No rashes, No breakdown Musculoskeletal: No Tenderness to Palpation of Joints or Extremities Neurological: Cranial nerves II-XII grossly intact Psych/Mental Status: Normal Affect, Appropriate, Alert and oriented to time, place, person, mood and affect Current Medications Acetaminophen (Tylenol) 1,000 mg PO Q8 [facility] Last Admin: 11/20/19 06:27 Dose: 1,000 mg Documented by: Albuterol Sulfate (Ventolin Aerosols) 2.5 mg INHALATION Q4H PRN PRN PRN Reason: Shortness of breath, wheezing Atorvastatin Calcium (Lipitor) 40 mg PO QHS [facility] Last Admin: 11/19/19 21:27 Dose: 40 mg Documented by: Carvedilol (Coreg) 12.5 mg PO BID [facility] Last Admin: 11/20/19 10:34 Dose: 12.5 mg Documented by: Digoxin (Lanoxin) 250 mcg PO DAILY [facility] Last Admin: 11/20/19 10:34 Dose: 250 mcg Documented by: Furosemide (Lasix) 40 mg PO DAILY [facility] Last Admin: 11/20/19 10:33 Dose: 40 mg Documented by: Heparin Sodium (Porcine) (Heparin Na) 5,000 unit SC Q8 [facility] Last Admin: 11/20/19 06:27 Dose: 5,000 unit Documented by: Sodium Chloride () 250 mls @ 15 mls/hr IV .[id number] PRN PRN Reason: Saline Flush Sodium Chloride () 250 mls @ 15 mls/hr IV .[id number] PRN PRN Reason: Additional IVPB Infusion Ipratropium [place] (Atrovent) 0.5 mg INHALATION Q6HWA.RT [facility] Last Admin: 11/20/19 06:56 Dose: 0.5 mg Documented by: Levothyroxine Sodium (Synthroid) 25 mcg PO DAILY@0600 [facility] Last Admin: 11/20/19 06:27 Dose: 25 mcg Documented by: Lidocaine (Lidoderm Patch) 1 patch TOPICAL DAILY [facility]; Protocol Last Admin: 11/20/19 10:30 Dose: 1 patch Documented by: Losartan Potassium (Cozaar) 50 mg PO DAILY [facility] Last Admin: 11/20/19 10:34 Dose: 50 mg Documented by: Methylprednisolone (Medrol Dosepak) 4 mg PO 0800,1200,1700 [facility]; Taper Stop: 11/24/19 08:59 Last Admin: 11/20/19 12:26 Dose: 4 mg Documented by: Mirabegron (Myrbetriq) 25 mg PO DAILY [facility] Last Admin: 11/20/19 10:35 Dose: 25 mg Documented by: Nutritional Formula (Lactose Free) (Ensure Enlive) 120 ml PO 4X/DAY [facility] Last Admin: 11/20/19 10:34 Dose: 120 ml Documented by: Ondansetron HCl (Zofran) 4 mg IV Q8H PRN PRN PRN Reason: NAUSEA/VOMITING Oxycodone HCl (Oxyir) 10 mg PO Q6H PRN PRN PRN Reason: Pain Score 6-10/10 Last Admin: 11/20/19 12:28 Dose: 10 mg Documented by: Paroxetine HCl (Paxil) 40 mg PO DAILY [facility] Last Admin: 11/20/19 10:33 Dose: 40 mg Documented by: Sodium Chloride () 10 - 40 ml IV UD PRN PRN Reason: SALINE FLUSH Last Admin: 11/18/19 16:33 Dose: 10 ml Documented by: Tamsulosin HCl (Flomax) 0.4 mg PO QHS [facility] Last Admin: 11/19/19 21:27 Dose: 0.4 mg Documented by: STROKE Vital Signs/Narrative: Vital Signs Temp Pulse Resp BP Pulse Ox 11/20/19 10:20 76 11/20/19 09:00 98.9 F 65 18 121/69 H 98 Medical Necessity - Tobacco Use Smoking Status: Former smoker Tobacco Use: Cigarettes Assessment/Plan All Active Problems (Last Updated 11/19/19 @ 08:[address] Antoine Arzola MD) Intractable right knee pain (Acute) Debility (Acute) 1. Intractable right knee pain with inability to ambulate - ongoing improvement. continue current therapy. follow up with ortho as o/p. 2. COPD with chronic hypoxic resp failure - baseline 3 lpm. no exacerbation. provide aerosols as needed + home meds. 3. Hx Takotsubo CM, chronic systolic CHF, has ICD - continue coreg, dig, statin, losartan 4. Hx severe osteoarthritis - right hip. in pain management with Dr. Phipps. pain controlled since last injection () 5. Hx Hep A. 6. HLD - statin 7. Hx Vtach - coreg, digoxin 8. Hypothyroid - synthroid DVT ppx: lovenox DC planning: SNF placement This patient was seen by Chau Judd PA-C under the supervision of Doctor Ness <Antoine Arzola - Last Filed: 11/20/19 13:02> Vitals/I&O's: Vital Signs Temp Pulse Resp BP Pulse Ox 98.9 F 75 18 121/69 H 98 11/20/19 09:00 11/20/19 12:55 11/20/19 12:55 11/20/19 09:00 11/20/19 09:00 Oxygen Flow Rate (L/min) 3 Oxygen Delivery Method Nasal Cannula Weight: 135 lb 2.294 oz Body Mass Index (BMI) 26.4 Intake and Output for Last 24 Hours 11/18/19 11/19/19 11/20/19 23:59 23:59 23:59 Intake Total 1200 / 1200 1760 / 2160 1300 / 1300 Output Total 2110 / 2110 1550 / 1800 1150 / 1150 Balance -910 / -910 210 / 360 150 / 150 Current Medications Acetaminophen (Tylenol) 1,000 mg PO Q8 [facility] Last Admin: 11/20/19 06:27 Dose: 1,000 mg Documented by: Albuterol Sulfate (Ventolin Aerosols) 2.5 mg INHALATION Q4H PRN PRN PRN Reason: Shortness of breath, wheezing Atorvastatin Calcium (Lipitor) 40 mg PO QHS [facility] Last Admin: 11/19/19 21:27 Dose: 40 mg Documented by: Carvedilol (Coreg) 12.5 mg PO BID [facility] Last Admin: 11/20/19 10:34 Dose: 12.5 mg Documented by: Digoxin (Lanoxin) 250 mcg PO DAILY [facility] Last Admin: 11/20/19 10:34 Dose: 250 mcg Documented by: Furosemide (Lasix) 40 mg PO DAILY [facility] Last Admin: 11/20/19 10:33 Dose: 40 mg Documented by: Heparin Sodium (Porcine) (Heparin Na) 5,000 unit SC Q8 [facility] Last Admin: 11/20/19 06:27 Dose: 5,000 unit Documented by: Sodium Chloride () 250 mls @ 15 mls/hr IV .[id number] PRN PRN Reason: Saline Flush Sodium Chloride () 250 mls @ 15 mls/hr IV .[id number] PRN PRN Reason: Additional IVPB Infusion Ipratropium [place] (Atrovent) 0.5 mg INHALATION Q6HWA.RT [facility] Last Admin: 11/20/19 12:54 Dose: 0.5 mg Documented by: Levothyroxine Sodium (Synthroid) 25 mcg PO DAILY@0600 [facility] Last Admin: 11/20/19 06:27 Dose: 25 mcg Documented by: Lidocaine (Lidoderm Patch) 1 patch TOPICAL DAILY [facility]; Protocol Last Admin: 11/20/19 10:30 Dose: 1 patch Documented by: Losartan Potassium (Cozaar) 50 mg PO DAILY [facility] Last Admin: 11/20/19 10:34 Dose: 50 mg Documented by: Methylprednisolone (Medrol Dosepak) 4 mg PO 0800,1200,1700 [facility]; Taper Stop: 11/24/19 08:59 Last Admin: 11/20/19 12:26 Dose: 4 mg Documented by: Mirabegron (Myrbetriq) 25 mg PO DAILY [facility] Last Admin: 11/20/19 10:35 Dose: 25 mg Documented by: Nutritional Formula (Lactose Free) (Ensure Enlive) 120 ml PO 4X/DAY [facility] Last Admin: 11/20/19 10:34 Dose: 120 ml Documented by: Ondansetron HCl (Zofran) 4 mg IV Q8H PRN PRN PRN Reason: NAUSEA/VOMITING Oxycodone HCl (Oxyir) 10 mg PO Q6H PRN PRN PRN Reason: Pain Score 6-10/10 Last Admin: 11/20/19 12:28 Dose: 10 mg Documented by: Paroxetine HCl (Paxil) 40 mg PO DAILY [facility] Last Admin: 11/20/19 10:33 Dose: 40 mg Documented by: Sodium Chloride () 10 - 40 ml IV UD PRN PRN Reason: SALINE FLUSH Last Admin: 11/18/19 16:33 Dose: 10 ml Documented by: Tamsulosin HCl (Flomax) 0.4 mg PO QHS [facility] Last Admin: 11/19/19 21:27 Dose: 0.4 mg Documented by: STROKE Vital Signs/Narrative: Vital Signs Pulse Resp 11/20/19 12:55 75 18 11/20/19 10:20 76 Assessment/Plan Hospitalist Note: I am seeing this patient in conjunction with Chau Judd. I independently seen and examined the patient. Progress note above reviewed and I concur with the above treatment plan. Right knee pain is getting better, patient started to able to ambulate for few feet. Now, she agreed to go to alf facility. Her vital signs are stable. - Physical Exam General: Alert, Oriented x3, Cooperative, No apparent distress. HEENT: Atraumatic, PERRLA, EOMI. Neck: Supple, No JVD, Negative Carotid Bruits, Trachea Midline, Thyroid Normal. Lungs: Clear to auscultation, Normal air movement, No rhonchi, No wheeze, No rales. Cardiovascular: Regular rate, Regular Rhythm, Normal S1, Normal S2, PMI Normal. Abdomen: Bowel Sounds Present, Soft, Non Tender, Non-Distended, No Hepato-splenomegaly. Extremities: No clubbing, No cyanosis, No edema Skin: No rashes, No breakdown Neurological: Cranial nerves are intact, neuro grossly intact Vital Signs are stable. Assessment and plan: #1 intractable right knee pain: Remained on OxyIR PRN for pain and Medrol Dosepak. Right knee pain continue to improve slowly, patient is able to ambulate a few steps now, it is getting better. CT scan of the right knee revealed moderate degree of joint space narrowing, minimal joint effusion. MRI cannot be done because patient has pacemaker and ICD. Appreciate orthopedic surgery recommendations. Plan to continue same treatment, awaiting placement to SNF, follow-up with orthopedic surgery as outpatient. #2 other chronic medical problems: Stable, continue current medications as above. This note was generated with [employer] dictation software. It may contain incorrect words, spelling, and punctuation that were not noted in checking the note before signing. OBSV E&M: [id number] Subsequent observation care L2
[2019-11-20] MEDS: 0.9% Saline Lock 10 ML Syringe IV (20:41)
[2019-11-20] MEDS: Atorvastatin Calcium 40 MG Tablet PO (21:11)
[2019-11-20] MEDS: Tamsulosin HCl 0.4 MG Capsule PO (21:11)
[2019-11-21] VITALS (8 sets, daily range): BP systolic 117–169; BP diastolic 69–76; PULSE 79–87; RESP 16–22; TEMP 36.4–37.3; O2SAT 96–98
[2019-11-21] MEDS: oxyCODONE 5 MG Tablet 10 MG PO ×4 (00:35→18:46)
[2019-11-21] MEDS: Acetaminophen 500 MG Tablet 1000 MG PO ×3 (05:02→21:06)
[2019-11-21] MEDS: Levothyroxine 25 MCG TABLET PO (05:02)
[2019-11-21] MEDS: Heparin Injection (Vial) 5,000 UNIT/ML VIAL 5000 UNIT SC ×3 (05:02→21:06)
[2019-11-21] MEDS: Ipratropium 0.5 MG/2.5 ML SOLUTION INHALATION ×3 (06:37→18:49)
[2019-11-21] MEDS: MethylPREDNISolone DosePak 4 MG BOX PO ×4 (08:56→21:05)
[2019-11-21] MEDS: Mirabegron 25 MG TAB.ER.24H PO (09:06)
[2019-11-21] MEDS: Furosemide 40 MG Tablet PO (09:06)
[2019-11-21] MEDS: Losartan Potassium 50 MG Tablet PO (09:07)
[2019-11-21] MEDS: Carvedilol 12.5 MG Tablet PO ×2 (09:07→21:06)
[2019-11-21] MEDS: Paroxetine 20 MG Tablet 40 MG PO (09:07)
[2019-11-21] MEDS: Digoxin 250 MCG Tablet PO (09:07)
[2019-11-21] MEDS: Lidocaine 5% Patch 1 PATCH TOPICAL (09:08)
--- NOTE | 2019-11-21 12:43 | PN_ITS ---
<Chau Judd - Last Filed: 11/21/19 12:43> Patient Problems: Active and Suspected Problems (Last Updated 11/19/19 @ 08:[address] Antoine Arzola MD) Debility (Acute) Reason for Visit: knee pain Subjective: Pain continues to improve. Pt was able to take more steps today. No fever/chil ls. No SOB/cough. No nausea/vomiting/diarrhea. Pt awaiting SNF placement. Vitals/I&O's: Vital Signs Temp Pulse Resp BP Pulse Ox 97.8 F 82 18 117/73 97 11/21/19 12:26 11/21/19 12:26 11/21/19 12:26 11/21/19 12:26 11/21/19 12:26 Oxygen Flow Rate (L/min) 3 Oxygen Delivery Method Nasal Cannula Weight: 134 lb 0.657 oz Body Mass Index (BMI) 26.4 Intake and Output for Last 24 Hours 11/19/19 11/20/19 11/21/19 23:59 23:59 23:59 Intake Total 1760 / 2160 2060 / 2210 750 / 750 Output Total 1550 / 1800 2150 / 2650 1850 / 1850 Balance 210 / 360 -90 / -440 -1100 / -1100 General: Alert, Oriented x3, Cooperative HEENT: Atraumatic, PERRLA, EOMI, Normocephalic Neck: Supple, No JVD, Negative Carotid Bruits Lungs: Clear to auscultation, Normal air movement Cardiovascular: Regular rate, No murmurs Abdomen: Bowel Sounds Present, Soft, Non Tender Extremities: No edema, Capillary Refill Less than 3 Seconds Skin: No rashes, No breakdown Musculoskeletal: No Tenderness to Palpation of Joints or Extremities Neurological: Cranial nerves II-XII grossly intact Psych/Mental Status: Normal Affect, Appropriate Laboratory Results 11/21/19 11:25: COVID-19 (MARIAH) Pending Current Medications Acetaminophen (Tylenol) 1,000 mg PO Q8 [facility] Last Admin: 11/21/19 05:02 Dose: 1,000 mg Documented by: Albuterol Sulfate (Ventolin Aerosols) 2.5 mg INHALATION Q4H PRN PRN PRN Reason: Shortness of breath, wheezing Atorvastatin Calcium (Lipitor) 40 mg PO QHS [facility] Last Admin: 11/20/19 21:11 Dose: 40 mg Documented by: Carvedilol (Coreg) 12.5 mg PO BID [facility] Last Admin: 11/21/19 09:07 Dose: 12.5 mg Documented by: Digoxin (Lanoxin) 250 mcg PO DAILY [facility] Last Admin: 11/21/19 09:07 Dose: 250 mcg Documented by: Furosemide (Lasix) 40 mg PO DAILY [facility] Last Admin: 11/21/19 09:06 Dose: 40 mg Documented by: Heparin Sodium (Porcine) (Heparin Na) 5,000 unit SC Q8 [facility] Last Admin: 11/21/19 05:02 Dose: 5,000 unit Documented by: Sodium Chloride () 250 mls @ 15 mls/hr IV .[id number] PRN PRN Reason: Saline Flush Sodium Chloride () 250 mls @ 15 mls/hr IV .[id number] PRN PRN Reason: Additional IVPB Infusion Ipratropium [place] (Atrovent) 0.5 mg INHALATION Q6HWA.RT [facility] Last Admin: 11/21/19 06:37 Dose: 0.5 mg Documented by: Levothyroxine Sodium (Synthroid) 25 mcg PO DAILY@0600 [facility] Last Admin: 11/21/19 05:02 Dose: 25 mcg Documented by: Lidocaine (Lidoderm Patch) 1 patch TOPICAL DAILY [facility]; Protocol Last Admin: 11/21/19 09:08 Dose: 1 patch Documented by: Losartan Potassium (Cozaar) 50 mg PO DAILY [facility] Last Admin: 11/21/19 09:07 Dose: 50 mg Documented by: Methylprednisolone (Medrol Dosepak) 4 mg PO 0800,1200,1700,2200 [facility]; Taper Stop: 11/24/19 08:59 Last Admin: 11/21/19 12:22 Dose: 4 mg Documented by: Mirabegron (Myrbetriq) 25 mg PO DAILY [facility] Last Admin: 11/21/19 09:06 Dose: 25 mg Documented by: Nutritional Formula (Lactose Free) (Ensure Enlive) 120 ml PO 4X/DAY [facility] Last Admin: 11/21/19 12:24 Dose: 120 ml Documented by: Ondansetron HCl (Zofran) 4 mg IV Q8H PRN PRN PRN Reason: NAUSEA/VOMITING Oxycodone HCl (Oxyir) 10 mg PO Q6H PRN PRN PRN Reason: Pain Score 6-10/10 Last Admin: 11/21/19 12:32 Dose: 10 mg Documented by: Paroxetine HCl (Paxil) 40 mg PO DAILY [facility] Last Admin: 11/21/19 09:07 Dose: 40 mg Documented by: Sodium Chloride () 10 - 40 ml IV UD PRN PRN Reason: SALINE FLUSH Last Admin: 11/20/19 20:41 Dose: 10 ml Documented by: Tamsulosin HCl (Flomax) 0.4 mg PO QHS [facility] Last Admin: 11/20/19 21:11 Dose: 0.4 mg Documented by: STROKE Vital Signs/Narrative: Vital Signs Temp Pulse Resp BP Pulse Ox 11/21/19 12:26 97.8 F 82 18 117/73 97 11/21/19 09:01 99.2 F H 87 18 169/69 H 96 Medical Necessity - Tobacco Use Smoking Status: Former smoker Tobacco Use: Cigarettes Assessment/Plan All Active Problems (Last Updated 11/19/19 @ 08:[address] Antoine Arzola MD) Intractable right knee pain (Acute) Debility (Acute) 1. Intractable right knee pain with inability to ambulate - ongoing improvement in pain and tolerance of physical activity.. continue current therapy. follow up with ortho as o/p. 2. COPD with chronic hypoxic resp failure - baseline 3 lpm. no exacerbation. provide aerosols as needed + home meds. 3. Hx Takotsubo CM, chronic systolic CHF, has ICD - continue coreg, dig, statin, losartan 4. Hx severe osteoarthritis - right hip. in pain management with Dr. Phipps. pain controlled since last injection () 5. Hx Hep A. 6. HLD - statin 7. Hx Vtach - coreg, digoxin 8. Hypothyroid - synthroid DVT ppx: lovenox DC planning: SNF placement This patient was seen by Chau Judd PA-C under the supervision of Doctor Harry <Titus Mcdonald - Last Filed: 11/21/19 13:57> Reason for Visit: Right knee pain Subjective: Patient has history of knee arthritis. Currently knee pain is controlled on pain medication and lidocaine transdermal patch. No chest pain or shortness of breath. Patient had bowel movement today. No new dysuria or urinary tract symptoms. Physical exam General: Alert, Oriented x3, Cooperative HEENT: Atraumatic, PERRLA, EOMI, Normocephalic Oral: No Gingival or Mucosal Lesions/ Ulcerations Neck: Supple, No JVD, Negative Carotid Bruits Lungs: Air entry diminished in bilateral lung bases. No crepitation/rhonchi Cardiovascular: Regular rate, Regular Rhythm, Normal S1, Normal S2, No murmurs Abdomen: Bowel Sounds Present, Soft, Non Tender, Non-Distended : No renal angle tenderness. No suprapubic tenderness. Extremities: No edema, Capillary Refill Less than 3 Seconds Skin: No rashes, No breakdown Musculoskeletal: Tenderness present on right knee. Chronic arthritis of knee and hip joints. Neurological: Cranial nerves II-XII grossly intact, Deep Tendon Reflexes 2+/4 and Symmetrical, Neuro grossly intact Psych/Mental Status: Normal Affect, Appropriate. Vitals/I&O's: Vital Signs Temp Pulse Resp BP Pulse Ox 97.8 F 82 18 117/73 97 11/21/19 12:26 11/21/19 12:26 11/21/19 12:26 11/21/19 12:26 11/21/19 12:26 Oxygen Flow Rate (L/min) 3 Oxygen Delivery Method Nasal Cannula Weight: 134 lb 0.657 oz Body Mass Index (BMI) 26.4 Intake and Output for Last 24 Hours 11/19/19 11/20/19 11/21/19 23:59 23:59 23:59 Intake Total 1760 / 2160 2060 / 2210 750 / 750 Output Total 1550 / 1800 2150 / 2650 1850 / 1850 Balance 210 / 360 -90 / -440 -1100 / -1100 Laboratory Results 11/21/19 11:25: COVID-19 (MARIAH) Pending Current Medications Acetaminophen (Tylenol) 1,000 mg PO Q8 [facility] Last Admin: 11/21/19 05:02 Dose: 1,000 mg Documented by: Albuterol Sulfate (Ventolin Aerosols) 2.5 mg INHALATION Q4H PRN PRN PRN Reason: Shortness of breath, wheezing Atorvastatin Calcium (Lipitor) 40 mg PO QHS [facility] Last Admin: 11/20/19 21:11 Dose: 40 mg Documented by: Carvedilol (Coreg) 12.5 mg PO BID [facility] Last Admin: 11/21/19 09:07 Dose: 12.5 mg Documented by: Digoxin (Lanoxin) 250 mcg PO DAILY [facility] Last Admin: 11/21/19 09:07 Dose: 250 mcg Documented by: Furosemide (Lasix) 40 mg PO DAILY [facility] Last Admin: 11/21/19 09:06 Dose: 40 mg Documented by: Heparin Sodium (Porcine) (Heparin Na) 5,000 unit SC Q8 [facility] Last Admin: 11/21/19 05:02 Dose: 5,000 unit Documented by: Sodium Chloride () 250 mls @ 15 mls/hr IV .[id number] PRN PRN Reason: Saline Flush Sodium Chloride () 250 mls @ 15 mls/hr IV .[id number] PRN PRN Reason: Additional IVPB Infusion Ipratropium [place] (Atrovent) 0.5 mg INHALATION Q6HWA.RT [facility] Last Admin: 11/21/19 13:18 Dose: 0.5 mg Documented by: Levothyroxine Sodium (Synthroid) 25 mcg PO DAILY@0600 [facility] Last Admin: 11/21/19 05:02 Dose: 25 mcg Documented by: Lidocaine (Lidoderm Patch) 1 patch TOPICAL DAILY [facility]; Protocol Last Admin: 11/21/19 09:08 Dose: 1 patch Documented by: Losartan Potassium (Cozaar) 50 mg PO DAILY [facility] Last Admin: 11/21/19 09:07 Dose: 50 mg Documented by: Methylprednisolone (Medrol Dosepak) 4 mg PO 0800,1200,1700,2200 [facility]; Taper Stop: 11/24/19 08:59 Last Admin: 11/21/19 12:22 Dose: 4 mg Documented by: Mirabegron (Myrbetriq) 25 mg PO DAILY [facility] Last Admin: 11/21/19 09:06 Dose: 25 mg Documented by: Nutritional Formula (Lactose Free) (Ensure Enlive) 120 ml PO 4X/DAY [facility] Last Admin: 11/21/19 12:24 Dose: 120 ml Documented by: Ondansetron HCl (Zofran) 4 mg IV Q8H PRN PRN PRN Reason: NAUSEA/VOMITING Oxycodone HCl (Oxyir) 10 mg PO Q6H PRN PRN PRN Reason: Pain Score 6-10/10 Last Admin: 11/21/19 12:32 Dose: 10 mg Documented by: Paroxetine HCl (Paxil) 40 mg PO DAILY [facility] Last Admin: 11/21/19 09:07 Dose: 40 mg Documented by: Sodium Chloride () 10 - 40 ml IV UD PRN PRN Reason: SALINE FLUSH Last Admin: 11/20/19 20:41 Dose: 10 ml Documented by: Tamsulosin HCl (Flomax) 0.4 mg PO QHS [facility] Last Admin: 11/20/19 21:11 Dose: 0.4 mg Documented by: STROKE Vital Signs/Narrative: Vital Signs Temp Pulse Resp BP Pulse Ox 11/21/19 12:26 97.8 F 82 18 117/73 97 Assessment/Plan This patient was seen in conjunction with Chau KENDALL. I have independently interviewed and examined the patient and reviewed pertinent history, examination findings, laboratory and plan of management. I have reviewed the note and agree with the documented findings with the few additional points. In brief, patient is admitted for intractable right knee pain, physical debility with inability to get up with chronic degenerative joint disease. PT and OT. SNF placement. Patient has history of COPD and baseline 3 L of oxygen requirement 24/7 at home. Chronic hypoxic respiratory failure. Patient does not use BiPAP or CPAP. Other comorbidities as mentioned above including Takotsubo cardiomyopathy, chronic systolic heart failure status post AICD and V. tach: Home medications continued. I have discussed my assessment with Chau KENDALL and orders have been reviewed. Inpatient E&M: 56556 Subs Hosp L2
--- NOTE | 2019-11-21 13:01 | CASEMGMT ---
Social Work Note SW updated that pt is agreeable to SNF and prefers [facility]. SW in to speak with pt. Pt confirms is agreeable to [facility]. SW placed a call to Caryn at [facility] and provided referral. SW faxed referral. Plan: [facility] pending acceptance and pre-cert Alecia Moore MEN'S GARMENT FITTER, GAMING CASHIER
--- NOTE | 2019-11-21 14:45 | CASEMGMT ---
Social Work Note SW did call referral line and spoke with Pam in [facility]. Per Pam, pt's insurance is not checked as an insurance that [facility] takes. Alecia Moore DIRECTOR OF BROADCAST, SHIPPING LEAD
--- NOTE | 2019-11-21 14:52 | CASEMGMT ---
Social Work Note SW received message from Caryn at [facility] stating they do not accept pt's insurance, pt will not be accepted. SW in to speak with pt. SW updated pt that [facility] doesn't take her insurance. Pt agreeable to new referral being sent to [facility]. KAITLIN placed a call to Diane at [facility] and provided referral. SW faxed referral. Plan: [facility] pending acceptance and pre-cert Alecia Moore COMMERCIAL DEVELOPMENT MANAGER, INTERNAL MEDICINE HOSPITALIST
[2019-11-21] MEDS: Atorvastatin Calcium 40 MG Tablet PO (21:06)
[2019-11-21] MEDS: Tamsulosin HCl 0.4 MG Capsule PO (21:06)
[2019-11-21] MEDS: 0.9% Saline Lock 10 ML Syringe IV (21:07)
[2019-11-22] VITALS (7 sets, daily range): BP systolic 102–136; BP diastolic 74–98; PULSE 70–109; RESP 16–20; TEMP 36.3–37.2; O2SAT 94–99
[2019-11-22] MEDS: oxyCODONE 5 MG Tablet 10 MG PO ×4 (00:47→20:32)
[2019-11-22] MEDS: Heparin Injection (Vial) 5,000 UNIT/ML VIAL 5000 UNIT SC ×3 (05:56→21:08)
[2019-11-22] MEDS: Acetaminophen 500 MG Tablet 1000 MG PO ×3 (05:56→21:08)
[2019-11-22] MEDS: Levothyroxine 25 MCG TABLET PO (05:57)
[2019-11-22] MEDS: Ipratropium 0.5 MG/2.5 ML SOLUTION INHALATION ×3 (06:57→19:00)
[2019-11-22] MEDS: MethylPREDNISolone DosePak 4 MG BOX PO ×2 (07:56→11:49)
[2019-11-22] MEDS: Carvedilol 12.5 MG Tablet PO ×2 (07:56→21:12)
[2019-11-22] MEDS: Furosemide 40 MG Tablet PO (07:57)
[2019-11-22] MEDS: Mirabegron 25 MG TAB.ER.24H PO (07:57)
[2019-11-22] MEDS: Digoxin 250 MCG Tablet PO (07:57)
[2019-11-22] MEDS: Lidocaine 5% Patch 1 PATCH TOPICAL (07:57)
[2019-11-22] MEDS: Losartan Potassium 50 MG Tablet PO (07:57)
[2019-11-22] MEDS: Paroxetine 20 MG Tablet 40 MG PO (07:57)
--- NOTE | 2019-11-22 11:57 | PCM.EXTCARCO ---
- Diet 11/17/19 18:43 Diet: Cardiac - Heart Healthy Food consistency:: Regular Liquid Consistency:: Regular/Thin - Routine Orders/Code Status Suppository Type: Dulcolax 10mg Suppository Frequency: Daily PRN O2 Frequency: Continuous Keep PO Greater than or Equal to (%): 90 Routine Lab Work: CBC - 5 days, BMP - 5 days Code Status: Full Code - Wound(s) L hand Wound Type: Skin Tear - Therapies Physical Therapy: Eval and Treat Occupational Therapy: Eval and Treat - Problem/Diagnosis (1) Knee sprain Status: Acute Current Visit: Yes (2) Debility Status: Acute Current Visit: Yes (3) Smoking greater than 30 pack years Status: Chronic Current Visit: No (4) COPD (chronic obstructive pulmonary disease) Status: Chronic Current Visit: No (5) Essential hypertension Status: Chronic Current Visit: No (6) Hepatitis A Status: Chronic Current Visit: No (7) Acute and chronic respiratory failure with hypoxia Status: Deleted Current Visit: No (8) Obesity (BMI 30.0-34.9) Status: Inactive Current Visit: No (9) RBBB (right bundle branch block) Status: Chronic Current Visit: No (10) Hyperlipidemia Status: Chronic Current Visit: No (11) Cardiomyopathy, dilated Status: Chronic Current Visit: No (12) Chronic systolic congestive heart failure Status: Chronic Current Visit: No (13) Biventricular automatic implantable cardioverter defibrillator in situ Status: Chronic Comment: RV lead implantation complicated by tamponade -pericardiocentesis done 01/05/15 Current Visit: No - Allergies/Procedures Done in Hospital Allergies/Adverse Reactions: Allergies hydrocodone bitartrate [From Vicodin] Allergy (Verified 11/17/19 14:29) Hives Penicillins Allergy (Verified 11/17/19 14:29) Anaphylaxis Procedures: None - Type of Care/Length of Stay Estimated LOS: Convalescent Care Less Than 30 days Type of Care Needed: Skilled Rehab Potential: Fair Prognosis: Fair - Additional Orders/Day of Discharge Day of Discharge: 11/22/19 - Dietary and Speech Recommendations Dietitian Recommendations/Changes: Continue current diet w/ ONS at [facility] as ordered - Follow Up Care Primary Care Physician: INGA OWEN [Other] Please follow up with your Primary Care Physician in: 1-2 weeks Please Follow Up With: Noman Collins MD When: 2 weeks Please Follow Up With: Cade Phipps MD - pain management When: as needed
--- NOTE | 2019-11-22 13:01 | CASEMGMT ---
Addendum entered by Alecia Moore 11/22/19 16:45: SW placed a call to Diane at [facility], pre-cert is still pending. SW in to speak with pt. SW updated pt that pre-cert is still pending. Pt states understanding. SW spoke with pt about feelings of going to [facility]. Pt states It's probably just fear of the unknown. SW spoke with pt regarding these feelings. SW informed pt that going to any SNF would be a new place for pt as she is not able to return to [facility] as they no longer take her insurance. SW informed pt that if she gets to [facility] and she doesn't like it she can request a different SNF. Pt states understanding, pt states she likes to color as it keeps her mind occupied. Pt states it helps me to keep out of the dark place in my mind. SW explored this with pt. Pt states I have a history of depression and I get overwhelmed sometimes. Pt denied any history/current suicidal thoughts/plans/ideations. Pt identifies coloring, her sister, her daughter and her mosque as good support for her. Pt denied additional needs or concerns at this time. SW faxed updated clinicals to [facility] including negative COVID test and COVID screening tool. SW updated charge nurse that pre-cert is still pending. Plan: [facility] pending pre-cert. Addendum entered by Alecia Moore 11/22/19 15:14: SW placed another call to Diane at [facility], pre-cert is still pending. Original Note: Social Work Note KAITLIN placed a call to Diane at [facility] and asked about pt's pre-cert. Diane states pt's pre-cert is still pending. Plan: [facility] pending pre-cert Alecia Moore DIRECTOR OF BUSINESS APPLICATIONS, COLLEGE DIRECTOR
--- NOTE | 2019-11-22 14:04 | PN_ITS ---
<Chau Judd - Last Filed: 11/22/19 14:04> Patient Problems: Active and Suspected Problems (Last Updated 11/19/19 @ 08:[address] Antoine Arzola MD) Knee sprain (Acute) Debility (Acute) Reason for Visit: Knee pain Subjective: No acute issues overnight. Pt waiting for SNF approval. Resting comfortably in bed NAD. She was unable to get her first choice SNF now trying [facility]. Vitals/I&O's: Vital Signs Temp Pulse Resp BP Pulse Ox 97.5 F L 77 16 128/74 H 99 11/22/19 08:00 11/22/19 08:00 11/22/19 08:00 11/22/19 08:00 11/22/19 08:00 Oxygen Flow Rate (L/min) 3 Oxygen Delivery Method Nasal Cannula Weight: 134 lb 14.766 oz Body Mass Index (BMI) 26.4 Intake and Output for Last 24 Hours 11/20/19 11/21/19 11/22/19 23:59 23:59 23:59 Intake Total 2060 / 2210 1050 / 1050 240 / 240 Output Total 2150 / 2650 2650 / 3050 800 / 800 Balance -90 / -440 -1600 / -2000 -560 / -560 General: Alert, Oriented x3, Cooperative HEENT: Atraumatic, PERRLA, EOMI, Normocephalic Neck: Supple, No JVD, Negative Carotid Bruits Lungs: Clear to auscultation, Normal air movement Cardiovascular: Regular rate, No murmurs Abdomen: Bowel Sounds Present, Soft, Non Tender Extremities: No edema, Capillary Refill Less than 3 Seconds Skin: No rashes, No breakdown Musculoskeletal: No Tenderness to Palpation of Joints or Extremities Neurological: Cranial nerves II-XII grossly intact Psych/Mental Status: Normal Affect, Appropriate, Alert and oriented to time, place, person, mood and affect Laboratory Results 11/21/19 11:25: COVID-19 (MARIAH) Not Detected Current Medications Acetaminophen (Tylenol) 1,000 mg PO Q8 [facility] Last Admin: 11/22/19 05:56 Dose: 1,000 mg Documented by: Albuterol Sulfate (Ventolin Aerosols) 2.5 mg INHALATION Q4H PRN PRN PRN Reason: Shortness of breath, wheezing Atorvastatin Calcium (Lipitor) 40 mg PO QHS [facility] Last Admin: 11/21/19 21:06 Dose: 40 mg Documented by: Carvedilol (Coreg) 12.5 mg PO BID [facility] Last Admin: 11/22/19 07:56 Dose: 12.5 mg Documented by: Digoxin (Lanoxin) 250 mcg PO DAILY [facility] Last Admin: 11/22/19 07:57 Dose: 250 mcg Documented by: Furosemide (Lasix) 40 mg PO DAILY [facility] Last Admin: 11/22/19 07:57 Dose: 40 mg Documented by: Heparin Sodium (Porcine) (Heparin Na) 5,000 unit SC Q8 [facility] Last Admin: 11/22/19 05:56 Dose: 5,000 unit Documented by: Sodium Chloride () 250 mls @ 15 mls/hr IV .[id number] PRN PRN Reason: Saline Flush Sodium Chloride () 250 mls @ 15 mls/hr IV .[id number] PRN PRN Reason: Additional IVPB Infusion Ipratropium [place] (Atrovent) 0.5 mg INHALATION Q6HWA.RT [facility] Last Admin: 11/22/19 12:49 Dose: 0.5 mg Documented by: Levothyroxine Sodium (Synthroid) 25 mcg PO DAILY@0600 [facility] Last Admin: 11/22/19 05:57 Dose: 25 mcg Documented by: Lidocaine (Lidoderm Patch) 1 patch TOPICAL DAILY [facility]; Protocol Last Admin: 11/22/19 07:57 Dose: 1 patch Documented by: Losartan Potassium (Cozaar) 50 mg PO DAILY [facility] Last Admin: 11/22/19 07:57 Dose: 50 mg Documented by: Methylprednisolone (Medrol Dosepak) 4 mg PO 0800,1200,2200 [facility]; Taper Stop: 11/24/19 08:59 Last Admin: 11/22/19 12:20 Dose: Not Given Documented by: Methylprednisolone (Medrol) 4 mg PO X1 ONE Stop: 11/22/19 22:01 Methylprednisolone (Medrol) 4 mg PO X1 ONE Stop: 11/23/19 08:01 Mirabegron (Myrbetriq) 25 mg PO DAILY [facility] Last Admin: 11/22/19 07:57 Dose: 25 mg Documented by: Nutritional Formula (Lactose Free) (Ensure Enlive) 120 ml PO 4X/DAY [facility] Last Admin: 11/22/19 08:00 Dose: 120 ml Documented by: Ondansetron HCl (Zofran) 4 mg IV Q8H PRN PRN PRN Reason: NAUSEA/VOMITING Oxycodone HCl (Oxyir) 10 mg PO Q6H PRN PRN PRN Reason: Pain Score 6-10/10 Last Admin: 11/22/19 07:56 Dose: 10 mg Documented by: Paroxetine HCl (Paxil) 40 mg PO DAILY [facility] Last Admin: 11/22/19 07:57 Dose: 40 mg Documented by: Sodium Chloride () 10 - 40 ml IV UD PRN PRN Reason: SALINE FLUSH Last Admin: 11/21/19 21:07 Dose: 10 ml Documented by: Tamsulosin HCl (Flomax) 0.4 mg PO QHS [facility] Last Admin: 11/21/19 21:06 Dose: 0.4 mg Documented by: Medical Necessity - Tobacco Use Smoking Status: Former smoker Tobacco Use: Cigarettes Assessment/Plan All Active Problems (Last Updated 11/19/19 @ 08:[address] Antoine Arzola MD) Knee sprain (Acute) Intractable right knee pain (Acute) Debility (Acute) 1. Intractable right knee pain with inability to ambulate - doing well, no issues. continue current therapy. follow up with ortho as o/p. 2. COPD with chronic hypoxic resp failure - baseline 3 lpm. no exacerbation. provide aerosols as needed + home meds. 3. Hx Takotsubo CM, chronic systolic CHF, has ICD - continue coreg, dig, statin, losartan 4. Hx severe osteoarthritis - right hip. in pain management with Dr. Phipps. pain controlled since last injection () 5. Hx Hep A. 6. HLD - statin 7. Hx Vtach - coreg, digoxin 8. Hypothyroid - synthroid DVT ppx: lovenox DC planning: SNF placement This patient was seen by Chau Judd PA-C under the supervision of Doctor Harry <Titus Mcdonlad - Last Filed: 11/22/19 16:16> Reason for Visit: Right knee pain. Objective: Patient knee pain is better. Blood pressure and heart rate is controlled. Physical exam General: Alert, Oriented x3, Cooperative HEENT: Atraumatic, PERRLA, EOMI, Normocephalic Oral: No Gingival or Mucosal Lesions/ Ulcerations Neck: Supple, No JVD, Negative Carotid Bruits Lungs: Air entry diminished in bilateral lung bases. No crepitation/rhonchi Cardiovascular: Regular rate, Regular Rhythm, Normal S1, Normal S2, No murmurs Abdomen: Bowel Sounds Present, Soft, Non Tender, Non-Distended : No renal angle tenderness. No suprapubic tenderness. Extremities: No edema, Capillary Refill Less than 3 Seconds Skin: No rashes, No breakdown Musculoskeletal: Tenderness present on right knee. Chronic arthritis of knee and hip joints. Neurological: Cranial nerves II-XII grossly intact, Deep Tendon Reflexes 2+/4 and Symmetrical, Neuro grossly intact Psych/Mental Status: Normal Affect, Appropriate. Vitals/I&O's: Vital Signs Temp Pulse Resp BP Pulse Ox 97.3 F L 109 H 20 H 102/74 96 11/22/19 14:30 11/22/19 14:30 11/22/19 14:30 11/22/19 14:30 11/22/19 14:30 Oxygen Flow Rate (L/min) 3 Oxygen Delivery Method Nasal Cannula Weight: 134 lb 14.766 oz Body Mass Index (BMI) 26.4 Intake and Output for Last 24 Hours 11/20/19 11/21/19 11/22/19 23:59 23:59 23:59 Intake Total 2060 / 2210 1050 / 1050 240 / 240 Output Total 2150 / 2650 2650 / 3050 800 / 800 Balance -90 / -440 -1600 / -2000 -560 / -560 Laboratory Results 11/21/19 11:25: COVID-19 (MARIAH) Not Detected Current Medications Acetaminophen (Tylenol) 1,000 mg PO Q8 [facility] Last Admin: 11/22/19 14:14 Dose: 1,000 mg Documented by: Albuterol Sulfate (Ventolin Aerosols) 2.5 mg INHALATION Q4H PRN PRN PRN Reason: Shortness of breath, wheezing Atorvastatin Calcium (Lipitor) 40 mg PO QHS [facility] Last Admin: 11/21/19 21:06 Dose: 40 mg Documented by: Carvedilol (Coreg) 12.5 mg PO BID [facility] Last Admin: 11/22/19 07:56 Dose: 12.5 mg Documented by: Digoxin (Lanoxin) 250 mcg PO DAILY [facility] Last Admin: 11/22/19 07:57 Dose: 250 mcg Documented by: Furosemide (Lasix) 40 mg PO DAILY [facility] Last Admin: 11/22/19 07:57 Dose: 40 mg Documented by: Heparin Sodium (Porcine) (Heparin Na) 5,000 unit SC Q8 [facility] Last Admin: 11/22/19 14:15 Dose: 5,000 unit Documented by: Sodium Chloride () 250 mls @ 15 mls/hr IV .[id number] PRN PRN Reason: Saline Flush Sodium Chloride () 250 mls @ 15 mls/hr IV .[id number] PRN PRN Reason: Additional IVPB Infusion Ipratropium [place] (Atrovent) 0.5 mg INHALATION Q6HWA.RT [facility] Last Admin: 11/22/19 12:49 Dose: 0.5 mg Documented by: Levothyroxine Sodium (Synthroid) 25 mcg PO DAILY@0600 [facility] Last Admin: 11/22/19 05:57 Dose: 25 mcg Documented by: Lidocaine (Lidoderm Patch) 1 patch TOPICAL DAILY [facility]; Protocol Last Admin: 11/22/19 07:57 Dose: 1 patch Documented by: Losartan Potassium (Cozaar) 50 mg PO DAILY [facility] Last Admin: 11/22/19 07:57 Dose: 50 mg Documented by: Methylprednisolone (Medrol Dosepak) 4 mg PO 0800,1200,2200 [facility]; Taper Stop: 11/24/19 08:59 Last Admin: 11/22/19 12:20 Dose: Not Given Documented by: Methylprednisolone (Medrol) 4 mg PO X1 ONE Stop: 11/22/19 22:01 Methylprednisolone (Medrol) 4 mg PO X1 ONE Stop: 11/23/19 08:01 Mirabegron (Myrbetriq) 25 mg PO DAILY [facility] Last Admin: 11/22/19 07:57 Dose: 25 mg Documented by: Nutritional Formula (Lactose Free) (Ensure Enlive) 120 ml PO 4X/DAY [facility] Last Admin: 11/22/19 14:18 Dose: 120 ml Documented by: Ondansetron HCl (Zofran) 4 mg IV Q8H PRN PRN PRN Reason: NAUSEA/VOMITING Oxycodone HCl (Oxyir) 10 mg PO Q6H PRN PRN PRN Reason: Pain Score 6-10/10 Last Admin: 10/06/20 14:14 Dose: 10 mg Documented by: Paroxetine HCl (Paxil) 40 mg PO DAILY [facility] Last Admin: 11/22/19 07:57 Dose: 40 mg Documented by: Sodium Chloride () 10 - 40 ml IV UD PRN PRN Reason: SALINE FLUSH Last Admin: 11/21/19 21:07 Dose: 10 ml Documented by: Tamsulosin HCl (Flomax) 0.4 mg PO QHS [facility] Last Admin: 11/21/19 21:06 Dose: 0.4 mg Documented by: STROKE Vital Signs/Narrative: Vital Signs Temp Pulse Resp BP Pulse Ox 11/22/19 14:30 97.3 F L 109 H 20 H 102/74 96 Assessment/Plan This patient was seen in conjunction with Chau KENDALL. I have independently interviewed and examined the patient and reviewed pertinent history, examination findings, laboratory and plan of management. I have reviewed the note and agree with the documented findings with the few additional points. In brief, patient is admitted for intractable right knee pain, physical debility with inability to get up with chronic degenerative joint disease. PT and OT. SNF placement. Patient has history of COPD and baseline 3 L of oxygen requirement 24/ at home. Chronic hypoxic respiratory failure. Patient does not use BiPAP or CPAP. Other comorbidities as mentioned above including Takotsubo cardiomyopathy, chronic systolic heart failure status post AICD and V. tach: Home medications continued. I have discussed my assessment with Chau KENDALL and orders have been reviewed. Inpatient E&M: 33633 Subs Hosp L2
[2019-11-22] MEDS: MethylPREDNISolone 4 MG Tablet PO (21:08)
[2019-11-22] MEDS: Tamsulosin HCl 0.4 MG Capsule PO (21:08)
[2019-11-22] MEDS: Atorvastatin Calcium 40 MG Tablet PO (21:08)
[2019-11-23] VITALS (7 sets, daily range): BP systolic 92–119; BP diastolic 55–73; PULSE 80–98; RESP 16–20; TEMP 36.6–37; O2SAT 97–98
[2019-11-23] MEDS: oxyCODONE 5 MG Tablet 10 MG PO ×4 (02:33→21:57)
[2019-11-23] MEDS: Acetaminophen 500 MG Tablet 1000 MG PO ×3 (06:05→21:59)
[2019-11-23] MEDS: Levothyroxine 25 MCG TABLET PO (06:05)
[2019-11-23] MEDS: Heparin Injection (Vial) 5,000 UNIT/ML VIAL 5000 UNIT SC ×3 (06:05→22:00)
[2019-11-23] MEDS: Ipratropium 0.5 MG/2.5 ML SOLUTION INHALATION ×3 (06:49→19:42)
[2019-11-23] MEDS: Mirabegron 25 MG TAB.ER.24H PO (09:00)
[2019-11-23] MEDS: Carvedilol 12.5 MG Tablet PO ×2 (09:00→22:00)
[2019-11-23] MEDS: MethylPREDNISolone 4 MG Tablet PO (09:00)
[2019-11-23] MEDS: Lidocaine 5% Patch 1 PATCH TOPICAL (09:01)
[2019-11-23] MEDS: Paroxetine 20 MG Tablet 40 MG PO (09:01)
[2019-11-23] MEDS: Furosemide 40 MG Tablet PO (09:01)
[2019-11-23] MEDS: Digoxin 250 MCG Tablet PO (09:01)
[2019-11-23] MEDS: Losartan Potassium 50 MG Tablet PO (09:02)
--- NOTE | 2019-11-23 14:11 | PCM.PN.HOSP ---
<Chau Judd - Last Filed: 11/23/19 14:11> Patient Problems: Active and Suspected Problems (Last Updated 11/19/19 @ 08:[address] Antoine Arzola MD) Knee sprain (Acute) Debility (Acute) Reason for Visit: difficulty ambulating Subjective: No acute issues overnight. No complaints at this time. Vitals/I&O's: Vital Signs Temp Pulse Resp BP Pulse Ox 97.9 F 89 18 106/61 97 11/23/19 09:06 11/23/19 09:06 11/23/19 09:06 11/23/19 09:06 11/23/19 09:06 Oxygen Flow Rate (L/min) 3 Oxygen Delivery Method Nasal Cannula Weight: 136 lb Body Mass Index (BMI) 26.4 Intake and Output for Last 24 Hours 11/21/19 11/22/19 11/23/19 23:59 23:59 23:59 Intake Total 1050 / 1050 640 / 640 400 / 400 Output Total 2650 / 3050 1400 / 1950 1650 / 1650 Balance -1600 / -2000 -760 / -1310 -1250 / -1250 General: Alert, Oriented x3, Cooperative HEENT: Atraumatic, PERRLA, EOMI, Normocephalic Neck: Supple, No JVD, Negative Carotid Bruits Lungs: Clear to auscultation, Normal air movement Cardiovascular: Regular rate, No murmurs Abdomen: Bowel Sounds Present, Soft, Non Tender Extremities: No edema, Capillary Refill Less than 3 Seconds Skin: No rashes, No breakdown Musculoskeletal: No Tenderness to Palpation of Joints or Extremities Neurological: Cranial nerves II-XII grossly intact Psych/Mental Status: Normal Affect, Appropriate, Alert and oriented to time, place, person, mood and affect Current Medications Acetaminophen (Tylenol) 1,000 mg PO Q8 [facility] Last Admin: 11/23/19 06:05 Dose: 1,000 mg Documented by: Albuterol Sulfate (Ventolin Aerosols) 2.5 mg INHALATION Q4H PRN PRN PRN Reason: Shortness of breath, wheezing Atorvastatin Calcium (Lipitor) 40 mg PO QHS [facility] Last Admin: 11/22/19 21:08 Dose: 40 mg Documented by: Carvedilol (Coreg) 12.5 mg PO BID [facility] Last Admin: 11/23/19 09:00 Dose: 12.5 mg Documented by: Digoxin (Lanoxin) 250 mcg PO DAILY [facility] Last Admin: 11/23/19 09:01 Dose: 250 mcg Documented by: Furosemide (Lasix) 40 mg PO DAILY [facility] Last Admin: 11/23/19 09:01 Dose: 40 mg Documented by: Heparin Sodium (Porcine) (Heparin Na) 5,000 unit SC Q8 [facility] Last Admin: 11/23/19 06:05 Dose: 5,000 unit Documented by: Sodium Chloride () 250 mls @ 15 mls/hr IV .[id number] PRN PRN Reason: Saline Flush Sodium Chloride () 250 mls @ 15 mls/hr IV .[id number] PRN PRN Reason: Additional IVPB Infusion Ipratropium [place] (Atrovent) 0.5 mg INHALATION Q6HWA.RT [facility] Last Admin: 11/23/19 13:14 Dose: 0.5 mg Documented by: Levothyroxine Sodium (Synthroid) 25 mcg PO DAILY@0600 [facility] Last Admin: 11/23/19 06:05 Dose: 25 mcg Documented by: Lidocaine (Lidoderm Patch) 1 patch TOPICAL DAILY [facility]; Protocol Last Admin: 11/23/19 09:01 Dose: 1 patch Documented by: Losartan Potassium (Cozaar) 50 mg PO DAILY [facility] Last Admin: 11/23/19 09:02 Dose: 50 mg Documented by: Methylprednisolone (Medrol Dosepak) 4 mg PO 0800,2200 [facility]; Taper Stop: 11/24/19 08:59 Last Admin: 11/22/19 12:20 Dose: Not Given Documented by: Mirabegron (Myrbetriq) 25 mg PO DAILY [facility] Last Admin: 11/23/19 09:00 Dose: 25 mg Documented by: Nutritional Formula (Lactose Free) (Ensure Enlive) 120 ml PO 4X/DAY [facility] Last Admin: 11/23/19 08:59 Dose: 120 ml Documented by: Ondansetron HCl (Zofran) 4 mg IV Q8H PRN PRN PRN Reason: NAUSEA/VOMITING Oxycodone HCl (Oxyir) 10 mg PO Q6H PRN PRN PRN Reason: Pain Score 6-10/10 Last Admin: 11/23/19 08:59 Dose: 10 mg Documented by: Paroxetine HCl (Paxil) 40 mg PO DAILY [facility] Last Admin: 11/23/19 09:01 Dose: 40 mg Documented by: Sodium Chloride () 10 - 40 ml IV UD PRN PRN Reason: SALINE FLUSH Last Admin: 11/21/19 21:07 Dose: 10 ml Documented by: Tamsulosin HCl (Flomax) 0.4 mg PO QHS [facility] Last Admin: 11/22/19 21:08 Dose: 0.4 mg Documented by: Medical Necessity - Tobacco Use Smoking Status: Former smoker Tobacco Use: Cigarettes Assessment/Plan All Active Problems (Last Updated 11/19/19 @ 08:[address] Antoine Arzola MD) Knee sprain (Acute) Intractable right knee pain (Acute) Debility (Acute) 1. Intractable right knee pain with inability to ambulate - doing well, no issues. continue current therapy. follow up with ortho as o/p - 2 weeks if possible. Encourage OOB and ambulation 2. COPD with chronic hypoxic resp failure - baseline 3 lpm. no exacerbation. provide aerosols as needed + home meds. 3. Hx Takotsubo CM, chronic systolic CHF, has ICD - continue coreg, dig, statin, losartan. Lasix resumed. 4. Hx severe osteoarthritis - right hip. in pain management with Dr. Phipps. pain controlled since last injection () 5. Hx Hep A. 6. HLD - statin 7. Hx Vtach - coreg, digoxin 8. Hypothyroid - synthroid DVT ppx: lovenox DC planning: SNF placement - awaiting approval This patient was seen by Chau Judd PA-C under the supervision of Doctor Harry <Titus Mcdonald - Last Filed: 11/24/19 09:34> Objective: Patient's vitals are good. Blood pressure and heart rate is controlled. Right knee pain is controlled. Physical exam General: Alert, Oriented x3, Cooperative HEENT: Atraumatic, PERRLA, EOMI, Normocephalic Oral: No Gingival or Mucosal Lesions/ Ulcerations Neck: Supple, No JVD, Negative Carotid Bruits Lungs: Air entry diminished in bilateral lung bases. No crepitation/rhonchi Cardiovascular: Regular rate, Regular Rhythm, Normal S1, Normal S2, No murmurs Abdomen: Bowel Sounds Present, Soft, Non Tender, Non-Distended : No renal angle tenderness. No suprapubic tenderness. Extremities: No edema, Capillary Refill Less than 3 Seconds Skin: No rashes, No breakdown Musculoskeletal: Tenderness present on right knee. Chronic arthritis of knee and hip joints. Neurological: Cranial nerves II-XII grossly intact, Deep Tendon Reflexes 2+/4 and Symmetrical, Neuro grossly intact Psych/Mental Status: Normal Affect, Appropriate. Vitals/I&O's: Vital Signs Temp Pulse Resp BP Pulse Ox 98.0 F 74 18 111/63 98 11/24/19 03:00 11/24/19 03:00 11/24/19 03:00 11/24/19 03:00 11/24/19 03:00 Oxygen Flow Rate (L/min) 3 Oxygen Delivery Method Nasal Cannula Weight: 135 lb 2.294 oz Body Mass Index (BMI) 26.4 Intake and Output for Last 24 Hours 11/22/19 11/23/19 11/24/19 23:59 23:59 23:59 Intake Total 640 / 640 1200 / 1550 630 / 630 Output Total 1400 / 1950 2050 / 2350 600 / 600 Balance -760 / -1310 -850 / -800 30 / 30 Current Medications Acetaminophen (Tylenol) 1,000 mg PO Q8 [facility] Last Admin: 11/24/19 05:24 Dose: 1,000 mg Documented by: Albuterol Sulfate (Ventolin Aerosols) 2.5 mg INHALATION Q4H PRN PRN PRN Reason: Shortness of breath, wheezing Atorvastatin Calcium (Lipitor) 40 mg PO QHS [facility] Last Admin: 11/23/19 22:00 Dose: 40 mg Documented by: Carvedilol (Coreg) 12.5 mg PO BID [facility] Last Admin: 11/23/19 22:00 Dose: 12.5 mg Documented by: Digoxin (Lanoxin) 250 mcg PO DAILY [facility] Last Admin: 11/23/19 09:01 Dose: 250 mcg Documented by: Furosemide (Lasix) 40 mg PO DAILY [facility] Last Admin: 11/23/19 09:01 Dose: 40 mg Documented by: Heparin Sodium (Porcine) (Heparin Na) 5,000 unit SC Q8 [facility] Last Admin: 11/24/19 05:24 Dose: 5,000 unit Documented by: Sodium Chloride () 250 mls @ 15 mls/hr IV .[id number] PRN PRN Reason: Saline Flush Sodium Chloride () 250 mls @ 15 mls/hr IV .[id number] PRN PRN Reason: Additional IVPB Infusion Ipratropium [place] (Atrovent) 0.5 mg INHALATION Q6HWA.RT [facility] Last Admin: 11/24/19 06:59 Dose: 0.5 mg Documented by: Levothyroxine Sodium (Synthroid) 25 mcg PO DAILY@0600 [facility] Last Admin: 11/24/19 05:26 Dose: 25 mcg Documented by: Lidocaine (Lidoderm Patch) 1 patch TOPICAL DAILY [facility]; Protocol Last Admin: 11/23/19 09:01 Dose: 1 patch Documented by: Lidocaine (Lidoderm Patch) 1 patch TOPICAL DAILY [facility]; Protocol Losartan Potassium (Cozaar) 50 mg PO DAILY [facility] Last Admin: 11/23/19 09:02 Dose: 50 mg Documented by: Mirabegron (Myrbetriq) 25 mg PO DAILY [facility] Last Admin: 11/23/19 09:00 Dose: 25 mg Documented by: Nutritional Formula (Lactose Free) (Ensure Enlive) 120 ml PO 4X/DAY [facility] Last Admin: 11/23/19 22:05 Dose: 120 ml Documented by: Ondansetron HCl (Zofran) 4 mg IV Q8H PRN PRN PRN Reason: NAUSEA/VOMITING Oxycodone HCl (Oxyir) 10 mg PO Q6H PRN PRN PRN Reason: Pain Score 6-10/10 Last Admin: 11/24/19 05:23 Dose: 10 mg Documented by: Paroxetine HCl (Paxil) 40 mg PO DAILY [facility] Last Admin: 11/23/19 09:01 Dose: 40 mg Documented by: Sodium Chloride () 10 - 40 ml IV UD PRN PRN Reason: SALINE FLUSH Last Admin: 11/21/19 21:07 Dose: 10 ml Documented by: Tamsulosin HCl (Flomax) 0.4 mg PO QHS [facility] Last Admin: 11/23/19 22:00 Dose: 0.4 mg Documented by: Assessment/Plan This patient was seen in conjunction with Chau KENDALL. I have independently interviewed and examined the patient and reviewed pertinent history, examination findings, laboratory and plan of management. I have reviewed the note and agree with the documented findings with the few additional points. In brief, patient is admitted for intractable right knee pain, physical debility with inability to get up with chronic degenerative joint disease. PT and OT. SNF placement. Patient has history of COPD and baseline 3 L of oxygen requirement 24/7 at home. Chronic hypoxic respiratory failure. Patient does not use BiPAP or CPAP. Other comorbidities as mentioned above including Takotsubo cardiomyopathy, chronic systolic heart failure status post AICD and V. tach: Home medications continued. Waiting for precert. I have discussed my assessment with Chau KENDALL and orders have been reviewed. Inpatient E&M: [id number] Subs Hosp L2
--- NOTE | 2019-11-23 16:16 | CASEMGMT ---
Social Work SW spoke with Diane at [facility] several times today and precert has not yet been obtained. SW met with pt and informed. Hopeful for precert tomorrow. Plan: [facility], pending precert. PETRA Chauhan
[2019-11-23] MEDS: Tamsulosin HCl 0.4 MG Capsule PO (22:00)
[2019-11-23] MEDS: MethylPREDNISolone DosePak 4 MG BOX PO (22:00)
[2019-11-23] MEDS: Atorvastatin Calcium 40 MG Tablet PO (22:00)
[2019-11-24] VITALS (7 sets, daily range): BP systolic 102–147; BP diastolic 62–78; PULSE 74–106; RESP 16–18; TEMP 36.7–37; O2SAT 94–98
[2019-11-24] MEDS: oxyCODONE 5 MG Tablet 10 MG PO ×3 (05:23→22:30)
[2019-11-24] MEDS: Heparin Injection (Vial) 5,000 UNIT/ML VIAL 5000 UNIT SC ×3 (05:24→22:20)
[2019-11-24] MEDS: Acetaminophen 500 MG Tablet 1000 MG PO ×3 (05:24→22:20)
[2019-11-24] MEDS: Levothyroxine 25 MCG TABLET PO (05:26)
[2019-11-24] MEDS: Ipratropium 0.5 MG/2.5 ML SOLUTION INHALATION ×3 (06:59→19:17)
[2019-11-24] MEDS: Lidocaine 5% Patch 1 PATCH TOPICAL ×2 (10:03)
[2019-11-24] MEDS: MethylPREDNISolone DosePak 4 MG BOX PO (10:04)
[2019-11-24] MEDS: Furosemide 40 MG Tablet PO (10:04)
[2019-11-24] MEDS: Digoxin 250 MCG Tablet PO (10:04)
[2019-11-24] MEDS: Mirabegron 25 MG TAB.ER.24H PO (10:04)
[2019-11-24] MEDS: Carvedilol 12.5 MG Tablet PO ×2 (10:05→22:19)
[2019-11-24] MEDS: Losartan Potassium 50 MG Tablet PO (10:05)
[2019-11-24] MEDS: Paroxetine 20 MG Tablet 40 MG PO (10:05)
--- NOTE | 2019-11-24 12:15 | CASEMGMT ---
Addendum entered by Alecia Moore 11/24/19 16:06: KAITLIN placed another call to Diane in admission, left message regarding pre-cert. KAITLIN asked Diane to call [phone] main number if she gets pre-cert today still. Plan: [facility] pending pre-cert Original Note: Social Work Note KAITLIN placed a call to Diane at [facility]. Diane checked, still no pre-cert. Plan: [facility] pending pre-cert Alecia Moore [employer]IST[employer], [employer]
--- NOTE | 2019-11-24 12:39 | PN_ITS ---
Patient Problems: Active and Suspected Problems (Last Updated 11/19/19 @ 08:[address] Antoine Arzola MD) Knee sprain (Acute) Debility (Acute) Objective: Patient heart rate in 70s to 80/min. Heart rate and blood pressure control. No new symptoms. Patient moving her bowels. Denies lower related symptoms. General: Alert, Oriented x3, Cooperative HEENT: Atraumatic, PERRLA, EOMI, Normocephalic Oral: No Gingival or Mucosal Lesions/ Ulcerations Neck: Supple, No JVD, Negative Carotid Bruits Lungs: Air entry diminished in bilateral lung bases. No crepitation/rhonchi Cardiovascular: Regular rate, Regular Rhythm, Normal S1, Normal S2, No murmurs Abdomen: Bowel Sounds Present, Soft, Non Tender, Non-Distended : No renal angle tenderness. No suprapubic tenderness. Extremities: No edema, Capillary Refill Less than 3 Seconds Skin: No rashes, No breakdown Musculoskeletal: Mild tenderness present on right knee. Chronic arthritis of knee and hip joints. Neurological: Cranial nerves II-XII grossly intact, Deep Tendon Reflexes 2+/4 and Symmetrical, Neuro grossly intact Psych/Mental Status: Normal Affect, Appropriate. Vitals/I&O's: Vital Signs Temp Pulse Resp BP Pulse Ox 98.0 F 97 18 106/78 98 11/24/19 10:02 11/24/19 10:02 11/24/19 10:02 11/24/19 10:02 11/24/19 10:02 Oxygen Flow Rate (L/min) 3 Oxygen Delivery Method Nasal Cannula Weight: 135 lb 2.294 oz Body Mass Index (BMI) 26.4 Intake and Output for Last 24 Hours 11/22/19 11/23/19 11/24/19 23:59 23:59 23:59 Intake Total 640 / 640 1200 / 1550 1530 / 1530 Output Total 1400 / 1950 2050 / 2350 1800 / 1800 Balance -760 / -1310 -850 / -800 -270 / -270 Current Medications Acetaminophen (Tylenol) 1,000 mg PO Q8 [facility] Last Admin: 11/24/19 05:24 Dose: 1,000 mg Documented by: Albuterol Sulfate (Ventolin Aerosols) 2.5 mg INHALATION Q4H PRN PRN PRN Reason: Shortness of breath, wheezing Atorvastatin Calcium (Lipitor) 40 mg PO QHS [facility] Last Admin: 11/23/19 22:00 Dose: 40 mg Documented by: Carvedilol (Coreg) 12.5 mg PO BID [facility] Last Admin: 11/24/19 10:05 Dose: 12.5 mg Documented by: Digoxin (Lanoxin) 250 mcg PO DAILY [facility] Last Admin: 11/24/19 10:04 Dose: 250 mcg Documented by: Furosemide (Lasix) 40 mg PO DAILY [facility] Last Admin: 11/24/19 10:04 Dose: 40 mg Documented by: Heparin Sodium (Porcine) (Heparin Na) 5,000 unit SC Q8 [facility] Last Admin: 11/24/19 05:24 Dose: 5,000 unit Documented by: Sodium Chloride () 250 mls @ 15 mls/hr IV .[id number] PRN PRN Reason: Saline Flush Sodium Chloride () 250 mls @ 15 mls/hr IV .[id number] PRN PRN Reason: Additional IVPB Infusion Ipratropium [place] (Atrovent) 0.5 mg INHALATION Q6HWA.RT [facility] Last Admin: 11/24/19 06:59 Dose: 0.5 mg Documented by: Levothyroxine Sodium (Synthroid) 25 mcg PO DAILY@0600 [facility] Last Admin: 11/24/19 05:26 Dose: 25 mcg Documented by: Lidocaine (Lidoderm Patch) 1 patch TOPICAL DAILY [facility]; Protocol Last Admin: 11/24/19 10:03 Dose: 1 patch Documented by: Lidocaine (Lidoderm Patch) 1 patch TOPICAL DAILY [facility]; Protocol Last Admin: 11/24/19 10:03 Dose: 1 patch Documented by: Losartan Potassium (Cozaar) 50 mg PO DAILY [facility] Last Admin: 11/24/19 10:05 Dose: 50 mg Documented by: Mirabegron (Myrbetriq) 25 mg PO DAILY [facility] Last Admin: 11/24/19 10:04 Dose: 25 mg Documented by: Nutritional Formula (Lactose Free) (Ensure Enlive) 120 ml PO 4X/DAY [facility] Last Admin: 11/24/19 10:04 Dose: 120 ml Documented by: Ondansetron HCl (Zofran) 4 mg IV Q8H PRN PRN PRN Reason: NAUSEA/VOMITING Oxycodone HCl (Oxyir) 10 mg PO Q6H PRN PRN PRN Reason: Pain Score 6-10/10 Last Admin: 11/24/19 05:23 Dose: 10 mg Documented by: Paroxetine HCl (Paxil) 40 mg PO DAILY [facility] Last Admin: 11/24/19 10:05 Dose: 40 mg Documented by: Sodium Chloride () 10 - 40 ml IV UD PRN PRN Reason: SALINE FLUSH Last Admin: 11/21/19 21:07 Dose: 10 ml Documented by: Tamsulosin HCl (Flomax) 0.4 mg PO QHS [facility] Last Admin: 11/23/19 22:00 Dose: 0.4 mg Documented by: STROKE Vital Signs/Narrative: Vital Signs Temp Pulse Resp BP Pulse Ox 11/24/19 10:02 98.0 F 97 18 106/78 98 Medical Necessity - Tobacco Use Smoking Status: Former smoker Tobacco Use: Cigarettes Assessment/Plan All Active Problems (Last Updated 11/19/19 @ 08:[address] Antoine Arzola MD) Knee sprain (Acute) Intractable right knee pain (Acute) Debility (Acute) This 59-year-old female was admitted for intractable right knee pain, physical debility, failed get up and go test. 1. Intractable right knee pain with inability to ambulate - doing well, no issues. continue current therapy. follow up with ortho as o/p - 2 weeks if possible. Currently on PT and OT. 2. COPD with chronic hypoxic resp failure - baseline 3 lpm. no exacerbation. On bronchodilator DuoNeb. 3. Takotsubo CM, chronic systolic CHF, has ICD - continue coreg, dig, statin, losartan. Lasix resumed. 4. severe osteoarthritis - right hip. in pain management with Dr. Phipps. pain controlled since last injection () 5. Chronic hepatitis a 6. HLD - statin 7. Patient had V. tach in the past. coreg, digoxin 8. Hypothyroid - synthroid DVT ppx: lovenox DC planning: SNF placement - awaiting approval. Discussed with the social work case manager. Inpatient E&M: 02723 Subs Hosp L2
--- NOTE | 2019-11-24 16:46 | CASEMGMT ---
Social Work Note SW in to speak with pt. SW updated pt that pre-cert is still pending. Pt states well by the time I get it I am going to be ready to go home. Pt states the only concern she has with going home at this moment is the steps she has to get into her home. SW informed pt to ask PT/OT tomorrow to work with pt on steps. Pt states she does have a niece that is a physical therapist who may be able to come into pt's home to assist with exercises/therapy. SW informed pt that this worker will speak to pt tomorrow after pt works with therapy to determine what pt is comfortable with doing for discharge. Pt states understanding. Alecia Moore FEEDER LOADER, RIB BENDER
[2019-11-24] MEDS: Tamsulosin HCl 0.4 MG Capsule PO (22:19)
[2019-11-24] MEDS: Atorvastatin Calcium 40 MG Tablet PO (22:21)
[2019-11-25 05:23] VITALS: BP 96/64; PULSE 82; RESP 18; TEMP 36.5; O2SAT 98
[2019-11-25] MEDS: Acetaminophen 500 MG Tablet 1000 MG PO ×2 (05:29→14:06)
[2019-11-25] MEDS: Heparin Injection (Vial) 5,000 UNIT/ML VIAL 5000 UNIT SC ×2 (05:29→14:04)
[2019-11-25] MEDS: Levothyroxine 25 MCG TABLET PO (05:30)
[2019-11-25] MEDS: oxyCODONE 5 MG Tablet 10 MG PO ×2 (05:36→14:06)
[2019-11-25] MEDS: 0.9% Saline Lock 10 ML Syringe IV (05:36)
[2019-11-25 07:43] VITALS: PULSE 83; RESP 17; O2SAT 96
[2019-11-25] MEDS: Ipratropium 0.5 MG/2.5 ML SOLUTION INHALATION ×2 (07:43→13:23)
[2019-11-25 07:47] VITALS: BP 95/57; PULSE 83; RESP 18; TEMP 36.9; O2SAT 98
[2019-11-25 10:22] LABS: Absolute Lymphocyte Count 4.82 X10^3/uL (0.83-4.51); Absolute Neutrophil Count 4.7 X10^3/uL (2.0-7.7); Basophil# 0.05 X10^3/uL; Basophil% 0.5 % (0-1); Eosinophils% 0.9 % (0-5); Hematocrit 37.6 % (37-47); Hemoglobin 11.2 g/dL (12.0-15.0); Lymphocyte # 4.82 X10^3/ul (4.0); Mean Corp Hgb Conc 29.8 g/dL (32-36); Mean Corpuscular Hgb 27.6 pg (27.0-32.0); Mean Corpuscular Volume 92.6 fL (81-99); Mean Platelet Vol. 8.5 fl (6.2-12.0); Monocyte# 0.87 X10^3/uL; Monocyte% 7.9 % (0-10); NRBC Flagged by Analyzer 0 % (0-5); Neutrophil # 4.69 X10^3/uL (2.7-7.7); Neutrophil % 42.8 % (47-70); Platelet Count 288 K/mm3 (150-450); RBC Distribution Width CV 13.4 % (11.6-14.6); RBC Distribution Width SD 45.4 fl (35.1-43.9); Red Blood Count 4.06 M/mm3 (4.2-5.4)
[2019-11-25 10:37] LABS: Anion Gap 2 (5-15); BUN 33 mg/dL (7-18); BUN/Creat Ratio 57.9 RATIO (10-20); Calcium,Total 8.8 mg/dL (8.5-10.1); Chloride 99 mmol/L (98-107); Creatinine, Serum 0.57 mg/dL (0.55-1.02); EST Glomerular Filtration Rate 115 mL/min (>60); Est Glom Filt Rate - Afr Amer 139 mL/min (>60); Estimated Creatinine Clearance 74.45 ml/min; Glucose 102 mg/dL (74-106); Potassium 4.2 mmol/L (3.5-5.1); Sodium Level 139 mmol/L (136-145)
--- NOTE | 2019-11-25 10:55 | DCINST_ITS ---
- Discharge Diagnoses Current Active Problems: Current Active and Chronic Problems (Last Updated 11/19/19 @ 08:[address] Antoine Arzola MD) Knee sprain (Acute) Debility (Acute) You will use the following diet at home:: Cardiac Your food should be the consistency of: Regular Your liquids should be the consistency of: Regular/Thin Discharge Activity: May Not Drive Weight Bearing Status: Weight bearing as tolerated Call your doctor if you observe: Fever of 101 or Higher, Coldness, Increased Pain, Numbness or Tingling, Inability to urinate, Inability to have a bowel movement, Using more than one pad per hour, Shortness of breath, Dizziness, Fainting spells, Swelling in the ankles, Chest pain, Increased palpitations (irregular heartbeat), Calf discomfort, Uncontrolled pain Instructions: ED Knee Pain [facility]O Allergies/Adverse Reactions: Allergies hydrocodone bitartrate [From Vicodin] Allergy (Verified 11/17/19 14:29) Hives Penicillins Allergy (Verified 11/17/19 14:29) Anaphylaxis Medications to take at Discharge Losartan Potassium [Cozaar] 50 mg PO DAILY 04/16/15 albuterol sulfate 90 mcg/actuation aerosol inhaler 2 puff INHALATION Q4H PRN 06/30/17 atorvastatin 40 mg tablet 40 mg PO QHS 06/30/17 Levothyroxine [Synthroid] 25 mcg PO DAILY 12/10/17 Paroxetine HCl [Paxil] 40 mg PO DAILY 12/10/17 Tamsulosin HCl [Flomax] 0.4 mg PO QHS 12/10/17 Budesonide/Formoterol 160/4.5 [Symbicort 160/4.5 Mcg Inhaler (SP)] 2 puff INHALATION BID 03/01/19 Digoxin [Lanoxin] 250 mcg PO DAILY 03/01/19 Albuterol Aerosols [Ventolin Aerosols] 2.5 mg INHALATION Q4H PRN PRN #1 03/10/19 Furosemide [Lasix] 40 mg PO DAILY #90 tab 03/10/19 Carvedilol [Coreg (Beta Jamie)] 12.5 mg PO BID 11/17/19 Mirabegron [Myrbetriq] 25 mg PO DAILY 11/17/19 Tiotropium [place] [Spiriva Respimat] 2 puff INHALATION DAILY 11/17/19 Acetaminophen [Tylenol] 1,000 mg PO Q8 tab 11/22/19 Ensure Enlive 120 ml PO 4X/DAY liquid 11/22/19 Lidocaine [Lidoderm Patch] 1 patch TOPICAL DAILY patch 11/22/19 MethylPREDNISolone DosePak [Medrol DosePak] 4 mg PO UD #1 tab 11/22/19 Oxycodone [Oxyir] 5 mg PO Q6H PRN PRN 3 Days #10 tab 11/25/19 The following prescriptions were given: Oxycodone [Oxyir] 5 mg PO Q6H PRN PRN 3 Days #10 tab PRN Reason: Pain Score 6-10 Transmission Status: Received by [facility] Primary Care Physician: INGA OWEN [Other] Please follow up with your Primary Care Physician in: 1-2 weeks Test Results: Test results from this visit will be discussed in further detail at your follow- up appointment, if applicable. Please Follow Up With: Noman Collins MD When: 2 weeks Please Follow Up With: Cade Phipps MD - pain management When: in 1-2 weeks
--- NOTE | 2019-11-25 10:56 | PCM.DC.SUM ---
Discharge Date and Diagnosis - Problem List Patient Problems: Active and Suspected Problems (Last Updated 11/19/19 @ 08:[address] Antoine Arzola MD) Knee sprain (Acute) Debility (Acute) Date of Admission: 11/17/19 Date of Discharge: 11/25/19 - Primary Discharge Diagnosis Acute Problems: Active Problems (Last Updated 11/19/19 @ 08:[address] Antoine Arzola MD) Knee sprain (Acute) Debility (Acute) Intractable right knee pain secondary to degenerative joint - Secondary Discharge Diagnosis Chronic Problems: Chronic Problems (Last Updated 11/19/19 @ 08:[address] Antoine Arzola MD) Smoking greater than 30 pack years (Chronic) COPD (chronic obstructive pulmonary disease) (Chronic) COPD exacerbation (Chronic) Essential hypertension (Chronic) Elevated LFTs (Chronic) Hepatitis A (Chronic) NSTEMI (non-ST elevated myocardial infarction) (Chronic) RBBB (right bundle branch block) (Chronic) Hyperlipidemia (Chronic) Cardiomyopathy, dilated (Chronic) Nonrheumatic mitral valve regurgitation (Chronic) Chronic systolic congestive heart failure (Chronic) Biventricular automatic implantable cardioverter defibrillator in situ (Chronic ~01/05/15) RV lead implantation complicated by tamponade -pericardiocentesis done 01/05/15 Atherosclerotic heart disease of [place] coronary artery without angina pectoris (Chronic) Ventricular tachycardia (Chronic) Hospital Course and Treatment Operations: None Summary of Care Provided: [] This 59-year-old female was admitted for intractable right knee pain, physical debility, failed get up and go test. 1. Intractable right knee pain with inability to ambulate - doing well, no issues. continue current therapy. follow up with ortho as as outpatient in 2 weeks. Patient given a prescription for oxycodone 5 mg every 6 hourly as needed for severe pain total 10 tablets and Lidoderm patch #7. Prescription sent to retail pharmacy. Outpatient PT. Labs reviewed. Patient completed methylprednisolone. 2. COPD with chronic hypoxic resp failure - baseline 3 lpm. no exacerbation. On bronchodilator DuoNeb. 3. Takotsubo CM, chronic systolic CHF, has ICD - continue coreg, dig, statin, losartan. Lasix resumed. 4. severe osteoarthritis - right hip. in pain management with Dr. Phipps. pain controlled since last injection (tues) 5. Chronic hepatitis a 6. HLD - statin 7. Patient had V. tach in the past. coreg, digoxin 8. Hypothyroid - synthroid DVT ppx: lovenox Discharge medication reconciliation done. Discharge follow-up instructions completed. Discharge process discussed with the patient and all questions were answered to patient's satisfaction. Follow-up with Dr. Goodrich and orthopedic surgeon. Total time spent, exact 35 minutes on discharge meds reconciliation, examination, coordination of care with nurses and ancillary staff, review of imaging and blood test and discussion with the patient on follow-up instructions Patient Problems: Active and Suspected Problems (Last Updated 11/19/19 @ 08:[address] Antoine Arzola MD) Knee sprain (Acute) Debility (Acute) Objective: Patient wants to go home as she has been waiting for long time to get pre-CERT for SNF placement. Her pain level is well controlled and she can walk to the bathroom. She has good relief with Lidoderm patch. Heart rate and blood pressure are controlled. General: Alert, Oriented x3, Cooperative HEENT: Atraumatic, PERRLA, EOMI, Normocephalic Oral: No Gingival or Mucosal Lesions/ Ulcerations Neck: Supple, No JVD, Negative Carotid Bruits Lungs: Air entry diminished in bilateral lung bases. No crepitation/rhonchi Cardiovascular: Regular rate, Regular Rhythm, Normal S1, Normal S2, No murmurs Abdomen: Bowel Sounds Present, Soft, Non Tender, Non-Distended : No renal angle tenderness. No suprapubic tenderness. Extremities: No edema, Capillary Refill Less than 3 Seconds Skin: No rashes, No breakdown Musculoskeletal: Mild tenderness on deep palpation present on right knee. Chronic arthritis of knee and hip joints. Neurological: Cranial nerves II-XII grossly intact, Deep Tendon Reflexes 2+/4 and Symmetrical, Neuro grossly intact Psych/Mental Status: Normal Affect, Appropriate. - Physical Exam Vitals/I&O's: Vital Signs Temp Pulse Resp BP Pulse Ox 98.5 F 83 18 95/57 L 98 11/25/19 07:47 11/25/19 07:47 11/25/19 07:47 11/25/19 07:47 11/25/19 07:47 Oxygen Flow Rate (L/min) 3 Oxygen Delivery Method Nasal Cannula Weight: 139 lb 3.2 oz Body Mass Index (BMI) 26.4 Intake and Output for Last 24 Hours 11/23/19 11/24/19 11/25/19 23:59 23:59 23:59 Intake Total 1200 / 1550 3130 / 3130 400 / 400 Output Total 2050 / 2350 3400 / 3400 450 / 450 Balance -850 / -800 -270 / -270 -50 / -50 Laboratory Results 11/25/19 09:20: WBC 11.0, RBC 4.06 L, Hgb 11.2 L, Hct 37.6, MCV 92.6, MCH 27.6, MCHC 29.8 L, RDW Std Deviation 45.4 H, RDW Coeff of Siobhan 13.4, Plt Count 288, MPV 8.5, Immature Gran % (Auto) 3.900 H, Neut % (Auto) 42.8 L, Lymph % (Auto) 44.0 H, [place] % (Auto) 7.9, Eos % (Auto) 0.9, Baso % (Auto) 0.5, Absolute Neuts (auto) 4.7, Absolute Lymphs (auto) 4.82 H, Nucleated RBC % 0 11/25/19 09:20: Sodium 139, Potassium 4.2, Chloride 99, Carbon Dioxide 38.0 H, Anion Gap 2 L, BUN 33 H, Creatinine 0.57, Estim Creat Clear Calc 74.45, Est GFR (MDRD) Af Amer 139, Est GFR (MDRD) Non-Af 115, BUN/Creatinine Ratio 57.9 H, Glucose 102, Calcium 8.8 Current Medications Acetaminophen (Tylenol) 1,000 mg PO Q8 [facility] Last Admin: 11/25/19 05:29 Dose: 1,000 mg Documented by: Albuterol Sulfate (Ventolin Aerosols) 2.5 mg INHALATION Q4H PRN PRN PRN Reason: Shortness of breath, wheezing Atorvastatin Calcium (Lipitor) 40 mg PO QHS [facility] Last Admin: 11/24/19 22:21 Dose: 40 mg Documented by: Carvedilol (Coreg) 12.5 mg PO BID [facility] Last Admin: 11/24/19 22:19 Dose: 12.5 mg Documented by: Digoxin (Lanoxin) 250 mcg PO DAILY [facility] Last Admin: 11/24/19 10:04 Dose: 250 mcg Documented by: Furosemide (Lasix) 40 mg PO DAILY [facility] Last Admin: 11/24/19 10:04 Dose: 40 mg Documented by: Heparin Sodium (Porcine) (Heparin Na) 5,000 unit SC Q8 [facility] Last Admin: 11/25/19 05:29 Dose: 5,000 unit Documented by: Sodium Chloride () 250 mls @ 15 mls/hr IV .[id number] PRN PRN Reason: Saline Flush Sodium Chloride () 250 mls @ 15 mls/hr IV .[id number] PRN PRN Reason: Additional IVPB Infusion Ipratropium [place] (Atrovent) 0.5 mg INHALATION Q6HWA.RT [facility] Last Admin: 11/25/19 07:43 Dose: 0.5 mg Documented by: Levothyroxine Sodium (Synthroid) 25 mcg PO DAILY@0600 [facility] Last Admin: 11/25/19 05:30 Dose: 25 mcg Documented by: Lidocaine (Lidoderm Patch) 1 patch TOPICAL DAILY [facility]; Protocol Last Admin: 11/24/19 10:03 Dose: 1 patch Documented by: Lidocaine (Lidoderm Patch) 1 patch TOPICAL DAILY [facility]; Protocol Last Admin: 11/24/19 10:03 Dose: 1 patch Documented by: Losartan Potassium (Cozaar) 50 mg PO DAILY [facility] Last Admin: 11/24/19 10:05 Dose: 50 mg Documented by: Mirabegron (Myrbetriq) 25 mg PO DAILY [facility] Last Admin: 11/24/19 10:04 Dose: 25 mg Documented by: Nutritional Formula (Lactose Free) (Ensure Enlive) 120 ml PO 4X/DAY [facility] Last Admin: 11/24/19 22:19 Dose: 120 ml Documented by: Ondansetron HCl (Zofran) 4 mg IV Q8H PRN PRN PRN Reason: NAUSEA/VOMITING Oxycodone HCl (Oxyir) 10 mg PO Q6H PRN PRN PRN Reason: Pain Score 6-10/10 Last Admin: 11/25/19 05:36 Dose: 10 mg Documented by: Paroxetine HCl (Paxil) 40 mg PO DAILY [facility] Last Admin: 11/24/19 10:05 Dose: 40 mg Documented by: Sodium Chloride () 10 - 40 ml IV UD PRN PRN Reason: SALINE FLUSH Last Admin: 11/25/19 05:36 Dose: 10 ml Documented by: Tamsulosin HCl (Flomax) 0.4 mg PO QHS [facility] Last Admin: 11/24/19 22:19 Dose: 0.4 mg Documented by: Discharge Activity: May Not Drive Weight Bearing Status: Weight bearing as tolerated Call your doctor if you observe: Fever of 101 or Higher, Coldness, Increased Pain, Numbness or Tingling, Inability to urinate, Inability to have a bowel movement, Using more than one pad per hour, Shortness of breath, Dizziness, Fainting spells, Swelling in the ankles, Chest pain, Increased palpitations (irregular heartbeat), Calf discomfort, Uncontrolled pain Home Medications: Medications to take at Discharge Losartan Potassium [Cozaar] 50 mg PO DAILY 04/16/15 albuterol sulfate 90 mcg/actuation aerosol inhaler 2 puff INHALATION Q4H PRN 06/30/17 atorvastatin 40 mg tablet 40 mg PO QHS 06/30/17 Levothyroxine [Synthroid] 25 mcg PO DAILY 12/10/17 Paroxetine HCl [Paxil] 40 mg PO DAILY 12/10/17 Tamsulosin HCl [Flomax] 0.4 mg PO QHS 12/10/17 Budesonide/Formoterol 160/4.5 [Symbicort 160/4.5 Mcg Inhaler (SP)] 2 puff INHALATION BID 03/01/19 Digoxin [Lanoxin] 250 mcg PO DAILY 03/01/19 Albuterol Aerosols [Ventolin Aerosols] 2.5 mg INHALATION Q4H PRN PRN #1 03/10/19 Furosemide [Lasix] 40 mg PO DAILY #90 tab 03/10/19 Carvedilol [Coreg (Beta Jamie)] 12.5 mg PO BID 11/17/19 Mirabegron [Myrbetriq] 25 mg PO DAILY 11/17/19 Tiotropium [place] [Spiriva Respimat] 2 puff INHALATION DAILY 11/17/19 Acetaminophen [Tylenol] 1,000 mg PO Q8 tab 11/22/19 Ensure Enlive 120 ml PO 4X/DAY liquid 11/22/19 MethylPREDNISolone DosePak [Medrol DosePak] 4 mg PO UD #1 tab 11/22/19 Lidocaine [Lidoderm Patch] 1 patch TOPICAL DAILY #7 patch 11/25/19 Oxycodone [Oxyir] 5 mg PO Q6H PRN PRN 3 Days #10 tab 11/25/19 Following Prescriptions Were Given to Patient: Lidocaine [Lidoderm Patch] 1 patch TOPICAL DAILY #7 patch Transmission Status: Received by [facility] Oxycodone [Oxyir] 5 mg PO Q6H PRN PRN 3 Days #10 tab PRN Reason: Pain Score 6-10 Transmission Status: Received by [facility] Primary Care Physician: INGA OWEN [Other] Please follow up with your Primary Care Physician in: 1-2 weeks Please Follow Up With: Noman Collins MD When: 2 weeks Please Follow Up With: Cade Phipps MD - pain management When: in 1-2 weeks Patient Instructions: ED Knee Pain [facility]O Medical Necessity - Tobacco Use Smoking Status: Former smoker Tobacco Use: Cigarettes Meaningful Use Info Meaningful Use Diagnoses (Choose all that apply): None applicable Inpatient E&M: 74202 [facility] Hosp
[2019-11-25] MEDS: Lidocaine 5% Patch 1 PATCH TOPICAL ×2 (11:13)
[2019-11-25] MEDS: Losartan Potassium 50 MG Tablet PO ×2 (11:13)
[2019-11-25] MEDS: Carvedilol 12.5 MG Tablet PO (11:14)
[2019-11-25] MEDS: Mirabegron 25 MG TAB.ER.24H PO (11:14)
[2019-11-25] MEDS: Digoxin 250 MCG Tablet PO (11:14)
[2019-11-25] MEDS: Furosemide 40 MG Tablet PO (11:14)
[2019-11-25] MEDS: Paroxetine 20 MG Tablet 40 MG PO (11:14)
--- NOTE | 2019-11-25 11:39 | CASEMGMT ---
Intro role of CM to patient. [facility]. Patient did not have a preference so referral made to [facility]. Per Renetta they can accept the patient for PT/OT and start of care will be Thursday or Thursday. Patient is agreeable and states she does have aides at home, and family who can assist. No further dc needs identified. Lakesha BORDEN RN ACM
--- NOTE | 2019-11-25 11:53 | CASEMGMT ---
Addendum entered by Alecia Moore 11/25/19 13:01: KAITLIN faxed discharge paperwork to Jonathon at [facility]. Original Note: Social Work Note SW updated that pt will be going home now with [facility]. KAITLIN placed a call to pt's CM Jonathon and left message updating her that pt will be discharged home today. KAITLIN placed a call to Diane at [facility] and left message that pt will now be going home with [facility]. Plan: Home with [facility] Alecia Moore REPAIR ORDER CLERK, JIG BUILDER HELPER
[2019-11-25 13:23] VITALS: PULSE 92; RESP 18
[2019-11-25] MEDS: Mag Hydrox/Al Hydrox/Simeth 30 ML UDC PO (14:02)
[2019-11-25 14:07] VITALS: BP 110/64; PULSE 82; RESP 16; TEMP 36.7; O2SAT 96
== END 2019-11-25 14:30 | disposition home health service (06) ==
LOC: ED 18:13 → MS3 18:16
PROVIDERS: Physician Assistant; Admitting Provider Internal Medicine; Emergency Provider Emergency Medicine; Visit Provider Internal Medicine
DX: S83.91XA Sprain of unspecified site of right knee, initial encounter (principal); M17.11 Unilateral primary osteoarthritis, right knee; X50.1XXA Overexertion from prolonged static or awkward postures, initial encounter; Y93.89 Activity, other specified; Y92.9 Unspecified place or not applicable; Y99.9 Unspecified external cause status; J44.9 Chronic obstructive pulmonary disease, unspecified; I11.0 Hypertensive heart disease with heart failure; E66.9 Obesity, unspecified; I50.22 Chronic systolic (congestive) heart failure; I25.2 Old myocardial infarction; B15.9 Hepatitis A without hepatic coma; I42.0 Dilated cardiomyopathy; E78.5 Hyperlipidemia, unspecified; J96.11 Chronic respiratory failure with hypoxia; F41.9 Anxiety disorder, unspecified; F32.9 Major depressive disorder, single episode, unspecified; M16.11 Unilateral primary osteoarthritis, right hip; I51.81 Takotsubo syndrome; E03.9 Hypothyroidism, unspecified; Z99.81 Dependence on supplemental oxygen; Z79.899 Other long term (current) drug therapy; Z95.810 Presence of automatic (implantable) cardiac defibrillator; Z87.891 Personal history of nicotine dependence
CPT/HCPCS: 36415; 73564; 73700; 80048; 80053; 85025; 87635; 94640; 96372; 96374; 97110; 97116; 97162; 97166; 97530; 97535; 99218; 99251; 99285; J7040; A4216; G0378; G0463; U0003

== ENCOUNTER 2020-04-27 17:00 | Inpatient (IN) | payer MEDICARE, MEDICAID, SELFPAY ==
[2020-04-27] VITALS (10 sets, daily range): BP systolic 113–204; BP diastolic 60–95; PULSE 88–110; RESP 15–22; TEMP 36.3–37.2; O2SAT 94–100; BMI 23.2; BMI 27.2; BMI 27.3
--- NOTE | 2020-04-27 17:09 | EKG12_ITS ---
Test Reason : SOB Blood Pressure : / mmHG Vent. Rate : 083 BPM Atrial Rate : 083 BPM P-R Int : 000 ms QRS Dur : 132 ms QT Int : 392 ms P-R-T Axes : 046 -52 064 degrees QTc Int : 460 ms Ventricular-paced rhythm Biventricular pacemaker detected Abnormal ECG Confirmed by TOSHA SPENCER, CHRISTIANO ([id number]), photo editor CARLOS CASTELLON ([id number]) on 04/30/2020 10:57:22 A M Referred By: OSVALDO Confirmed By:MELANI GIVENS MD
--- NOTE | 2020-04-27 17:14 | ED.VIS.DYS ---
History of Present Illness Chief Complaint: Shortness of Breath Informant: Patient Onset: Days Timing: Continuous Quality: Dyspnea on exertion, Wheezing Narrative: Patient is a 59-year-old female with history of chronic respiratory failure on 3-3.5 liters at baseline, COPD, systolic heart failure, cardiomyopathy, ICD placement, hypertension, hyperlipidemia and hypothyroid presenting with worsening shortness of breath. Patient states he started feel little unwell yesterday and became significantly short of breath today. She notes with past few days had increased swelling of her extremities. She states she is been compliant with all of her home oxygen medications. Last took breathing treatment at noon which provided little relief. Patient denies associated chest pain. Denies any GI or symptoms. She notes increased dyspnea on exertion. States she continues to have frequent urination associated with her Lasix use. This feels like either a flare of her COPD or CHF, she is not sure. No other complaints at this time. Past Medical History - Allergies and Home Meds Allergies/Adverse Reactions: Allergies hydrocodone bitartrate [From Vicodin] Allergy (Verified 11/17/19 14:29) Hives Penicillins Allergy (Verified 11/17/19 14:29) Anaphylaxis Past Medical History: - - COPD, systolic heart failure, hepatitis, dilated cardiomyopathy, hyperlipidemia, cardiac tamponade Surgical History: - - x 2, hysterectomy, AICD/pacemaker placement. - Family History Maternal Family History: Family History (Last Reviewed 11/17/19 @ 18:20 by Chau KENDALL, PA) Father CAD (coronary artery disease) Hypertension Mother CAD (coronary artery disease) Hypertension Diabetes Brother CAD (coronary artery disease) Family History: Reports: Diabetes, Heart Disease, Hypertension Paternal Family History: Family History (Last Reviewed 11/17/19 @ 18:20 by Chau KENDALL, PA) Father CAD (coronary artery disease) Hypertension Mother CAD (coronary artery disease) Hypertension Diabetes Brother CAD (coronary artery disease) Family History: Reports: Heart Disease, Hypertension Review of Systems General: Denies: Chills, Fever, Sweats Eyes: Denies: Visual changes - bilaterally, Diplopia ENT: Denies: Rhinorrhea, Sore throat Cardiovascular: Denies: Chest pain, Palpitations Respiratory: Reports: Dyspnea, Dyspnea on exertion. Denies: Cough Gastrointestinal: Denies: Abdominal pain, Nausea, Vomiting, Diarrhea, Melena, Hematochezia Genitourinary: Denies: Dysuria, Hematuria, Frequency Musculoskeletal: Reports: Swelling - Pedal. Denies: Back pain, Extremity Pain Skin: Denies: Rash, Wounds Neurological: Denies: Headache, Weakness, Numbness Physical Exam Vital Signs/Narrative: Vital Signs Temp Pulse Resp BP Pulse Ox 04/27/20 17:01 97.4 F L 97 17 204/75 H 95 Inital Vital Signs reviewed: Yes General: Well nourished, Well developed, No Acute Distress Head: Normocephalic, Atraumatic Eyes: Perrl, EOMI ENT: Moist mucous membranes, No rhinorrhea Neck: Supple, Nontender, - - + JVD Cardiovascular: Regular rate, Regular rhythm, No murmurs Respiratory: Chest nontender, Diminished, Decreased Air Movement, - - Difficult to appreciate breath sounds because it so diminished and tight sounding. Patient is pursed breathing and tripoding. Speaking in 2-3 word sentences.. Negative for: Rales, Rhonchi Abdomen: Soft, Nontender, Nondistended, Normal bowel sounds Back: Nontender, Normal Inspection Extremities: Nontender, Edema - 2+ pedal edema Skin: Normal color, No rash Neurological: Alert, Oriented x3, Cranial nerves II-XII grossly intact, Normal Strength, Normal Sensation Psychological: Normal affect, Normal Mood Diagnostic/Tx/Re-eval Chest X-Ray - ED: 1 View, Read by ED Physician, Chronic Changes, - - hyperinflated lungs, flattening of the diaphragm Laboratory Data 04/27/20 04/27/20 04/27/20 18:29 18:29 18:29 WBC 7.6 RBC 4.83 Hgb 12.9 Hct 44.0 MCV 91.1 MCH 26.7 L MCHC 29.3 L RDW Std Deviation 46.6 H RDW Coeff of Siobhan 13.8 Plt Count 274 MPV 8.5 Immature Gran % (Auto) 0.400 Neut % (Auto) 63.3 Lymph % (Auto) 30.2 [place] % (Auto) 4.6 Eos % (Auto) 1.2 Baso % (Auto) 0.3 Absolute Neuts (auto) 4.8 Absolute Lymphs (auto) 2.28 Nucleated RBC % 0 Sodium 141 Potassium 4.5 Chloride 98 Carbon Dioxide 43.0 H Anion Gap 0 L BUN 17 Creatinine 0.42 L Estim Creat Clear Calc 131.68 Est GFR (MDRD) Af Amer 195 Est GFR (MDRD) Non-Af 161 BUN/Creatinine Ratio 40.2 H Glucose 92 Calcium 9.6 Magnesium Troponin I < 0.015 B-Natriuretic Peptide 43.1 Digoxin 04/27/20 04/27/20 18:29 18:29 WBC RBC Hgb Hct MCV MCH MCHC RDW Std Deviation RDW Coeff of Siobhan Plt Count MPV Immature Gran % (Auto) Neut % (Auto) Lymph % (Auto) [place] % (Auto) Eos % (Auto) Baso % (Auto) Absolute Neuts (auto) Absolute Lymphs (auto) Nucleated RBC % Sodium Potassium Chloride Carbon Dioxide Anion Gap BUN Creatinine Estim Creat Clear Calc Est GFR (MDRD) Af Amer Est GFR (MDRD) Non-Af BUN/Creatinine Ratio Glucose Calcium Magnesium 2.1 Troponin I B-Natriuretic Peptide Digoxin 0.56 L - Rhythm Strip Rhythm Strip: paced Rate: 83 - EKG Initial EKG Interpretation: - - Ventricular paced rhythm at a rate of 83Biventricular pacerNormal ST segments Treatment - Dyspnea: Oxygen, Albuterol, Atrovent, Steroid Repeat Evaluation: Improved - Medical Decision Making Patient is evaluated for significant increased work of breathing and respiratory symptoms. On arrival patient was actually on a nonrebreather and moving very little air. Presentation is highly consistent with a COPD exacerbation. Patient does also have a cardiac history and states that she has had some swelling of her legs. Patient is given stacked breathing treatments as well as IV Solu-Medrol. On reevaluation she does have improvement. She is titrated back down to her baseline oxygen. Chest x-ray shows hyperinflation but does not to be fluid overloaded.CBC is unremarkable. Troponin is negative. BNP is normal. BMP is remarkable for an elevated carbon oxide of 43 and a low anion gap of 0. This is more extreme than her baseline. Patient's dig level is subtherapeutic. Patient will require admission for COPD exacerbation given the degree of her symptoms and I suspect worsening of her chronic hypercapnia. Case is discussed with admitting physician, Dr. Mcdonald, he does request an ABG. This is obtained which shows a mildly decompensated respiratory acidosis. Patient is a pH 7.3 with a PCO2 of 85 and a PO2 of 144. This again is worse than her baseline. Patient will be placed on BiPAP tonight for this respiratory acidosis. This would on the floor. A Covid test is obtained which is negative. I suspect patient is having this exacerbation as she is living in a new trailer with her brother who has pets and she also continues to smoke cigarettes. ED Disposition - Plan for ED Patient: Disposition: Acute Care Hospital [facility] Diagnosis: COPD exacerbation, Chronic systolic congestive heart failure, COPD with respiratory distress, acute
[2020-04-27] MEDS: Ipratropium/Albuterol Sulfate 3 ML AMPUL.NEB INHALATION ×2 (17:26→23:31)
[2020-04-27] MEDS: Albuterol 2.5 MG/3 ML VIAL.NEB. INHALATION ×3 (17:44→17:55)
[2020-04-27 18:44] LABS: Absolute Lymphocyte Count 2.28 X10^3/uL (0.83-4.51); Absolute Neutrophil Count 4.8 X10^3/uL (2.0-7.7); Basophil# 0.02 X10^3/uL; Basophil% 0.3 % (0-1); Eosinophil# 0.09 X10^3/uL; Eosinophils% 1.2 % (0-5); Hemoglobin 12.9 g/dL (12.0-15.0); Lymphocyte # 2.28 X10^3/ul (4.0); Lymphocyte % 30.2 % (19-41); Mean Corp Hgb Conc 29.3 g/dL (32-36); Mean Corpuscular Hgb 26.7 pg (27.0-32.0); Mean Corpuscular Volume 91.1 fL (81-99); Mean Platelet Vol. 8.5 fl (6.2-12.0); Monocyte# 0.35 X10^3/uL; Monocyte% 4.6 % (0-10); NRBC Flagged by Analyzer 0 % (0-5); Neutrophil # 4.78 X10^3/uL (2.7-7.7); Neutrophil % 63.3 % (47-70); Platelet Count 274 K/mm3 (150-450); RBC Distribution Width CV 13.8 % (11.6-14.6); RBC Distribution Width SD 46.6 fl (35.1-43.9); Red Blood Count 4.83 M/mm3 (4.2-5.4); White Blood Count 7.6 K/mm3 (4.4-11.0)
--- NOTE | 2020-04-27 18:44 | RAD_ITS ---
INDICATION: sob EXAMINATION/TECHNIQUE: X-RAY - XR Chest 1 View COMPARISON: 04/23/2019. FINDINGS: Left-sided cardiac device. Chronic lung changes. Left basilar atelectasis. Tortuous and calcific atherosclerotic aorta. The heart is not enlarged. No pleural effusion or pneumothorax. Degenerative changes of the thoracic spine. RAD/Chest 1 View (Portable) IMPRESSION: No acute radiographic abnormalities. Chronic lung changes. Electronically Signed: Mikhail Ivan MD at 19:04 EST Tel , Service support ,
[2020-04-27 18:53] LABS: Anion Gap 0 (5-15); BUN 17 mg/dL (7-18); BUN/Creat Ratio 40.2 RATIO (10-20); Calcium,Total 9.6 mg/dL (8.5-10.1); Chloride 98 mmol/L (98-107); Creatinine, Serum 0.42 mg/dL (0.55-1.02); EST Glomerular Filtration Rate 161 mL/min (>60); Est Glom Filt Rate - Afr Amer 195 mL/min (>60); Estimated Creatinine Clearance 131.68 ml/min; Glucose 92 mg/dL (74-106); Potassium 4.5 mmol/L (3.5-5.1); Sodium Level 141 mmol/L (136-145)
[2020-04-27 19:16] LABS: BNP,B-Type NATRIURETIC PEPTIDE 43.1 pg/mL (0-100)
[2020-04-27 19:30] LABS: Digoxin Level 0.56 ng/mL (0.80-2.00)
--- NOTE | 2020-04-27 20:01 | HP.PCM_ITS ---
Problem List (1) Knee sprain Status: Resolved (2) Intractable right knee pain Status: Acute (3) Debility Status: Acute (4) Smoking greater than 30 pack years Status: Chronic (5) COPD (chronic obstructive pulmonary disease) Status: Chronic (6) COPD exacerbation Status: Acute (7) Essential hypertension Status: Chronic (8) Elevated LFTs Status: Chronic (9) Hepatitis A Status: Chronic Qualifiers: (10) NSTEMI (non-ST elevated myocardial infarction) Status: Chronic (11) RBBB (right bundle branch block) Status: Chronic (12) Hyperlipidemia Status: Chronic Qualifiers: (13) Cardiomyopathy, dilated Status: Chronic (14) Nonrheumatic mitral valve regurgitation Status: Chronic (15) Chronic systolic congestive heart failure Status: Acute (16) Biventricular automatic implantable cardioverter defibrillator in situ Status: Chronic Comment: RV lead implantation complicated by tamponade - pericardiocentesis done 01/05/15 (17) Atherosclerotic heart disease of [place] coronary artery without angina pectoris Status: Chronic Qualifiers: [place] vs. transplanted heart: unspecified whether [place] or transplanted heart Qualified Code(s): I25.10 - Atherosclerotic heart disease of [place] coronary artery without angina pectoris (18) Ventricular tachycardia Status: Chronic History of Present Illness Date of Admission: 04/27/20 Chief Complaint: Shortness of breath worse for 2 days The patient is a 59 year old F with history of COPD on 3 L of home oxygen and chronic systolic heart failure status post AICD/biventricular pacemaker came to ED for shortness of breath for about 1 week but got worse for last 2 days, progressed from exertional dyspnea or dyspnea at rest. She also has chest tightness all around. Mild cough but not able to bring up phlegm. Denies any fever chills. Denies exposure to Covid. She did not had Covid vaccine yet but states she had Covid infection spring last 2019. In ED, found to be tachypneic respiratory rate 22, blood pressure 204/75, pulse ox 98% on 3 L of oxygen. Mild bilateral ankle swelling. Chest x-ray shows chronic changes with obliteration of left CP angle. Past Medical History Past Medical History (Chronic Problems): Chronic Problems (Last Updated 11/19/19 @ 08:[address] Antoine Arzola MD) Smoking greater than 30 pack years (Chronic) COPD (chronic obstructive pulmonary disease) (Chronic) Essential hypertension (Chronic) Elevated LFTs (Chronic) Hepatitis A (Chronic) NSTEMI (non-ST elevated myocardial infarction) (Chronic) RBBB (right bundle branch block) (Chronic) Hyperlipidemia (Chronic) Cardiomyopathy, dilated (Chronic) Nonrheumatic mitral valve regurgitation (Chronic) Biventricular automatic implantable cardioverter defibrillator in situ (Chronic ~01/05/15) RV lead implantation complicated by tamponade -pericardiocentesis done 01/05/15 Atherosclerotic heart disease of [place] coronary artery without angina pectoris (Chronic) Ventricular tachycardia (Chronic) Medical History: Medical History (Last Updated 11/19/19 @ 08:[address] Antoine Arzola MD) RBBB (right bundle branch block) (Chronic) I45.10 Hyperlipidemia (Chronic) E78.5 Cardiomyopathy, dilated (Chronic) I42.0 Nonrheumatic mitral valve regurgitation (Chronic) I34.0 Chronic systolic congestive heart failure (Chronic) I50.22 Biventricular automatic implantable cardioverter defibrillator in situ (Chronic) Onset Date: ~01/05/15 Z95.810 RV lead implantation complicated by tamponade -pericardiocentesis done 01/05/15 Atherosclerotic heart disease of [place] coronary artery without angina pectoris (Chronic) I25.10 Ventricular tachycardia (Chronic) I47.2 Anxiety F41.9 COPD (chronic obstructive pulmonary disease) J44.9 Depression F32.9 Cardiac tamponade (Inactive) I31.4 Obesity (BMI 30.0-34.9) (Inactive) E66.9 Allergies hydrocodone bitartrate [From Vicodin] Allergy (Verified 11/17/19 14:29) Hives Penicillins Allergy (Verified 11/17/19 14:29) Anaphylaxis Home Medications: Ambulatory Orders Medication Instructions Recorded Losartan Potassium [Cozaar] 50 mg PO DAILY 04/16/15 albuterol sulfate 90 mcg/actuation 2 puff INHALATION Q4H PRN 06/30/17 aerosol inhaler atorvastatin 40 mg tablet 40 mg PO QHS 06/30/17 Levothyroxine [Synthroid] 25 mcg PO DAILY 12/10/17 Budesonide/Formoterol 160/4.5 2 puff INHALATION BID 03/01/19 [Symbicort 160/4.5 Mcg Inhaler (SP)] Digoxin [Lanoxin] 250 mcg PO DAILY 03/01/19 Albuterol Aerosols [Ventolin 2.5 mg INHALATION Q4H PRN PRN #1 03/10/19 Aerosols] Furosemide [Lasix] 40 mg PO DAILY #90 tab 03/10/19 Carvedilol [Coreg (Beta Jamie)] 12.5 mg PO BID 11/17/19 Tiotropium [place] [Spiriva 2 puff INHALATION DAILY 11/17/19 Respimat] Surgical History: Surgical History (Last Reviewed 11/15/19 @ 09:46 by Arlette Beckwith BREWERY TECHNICIAN, BREWERY TECHNICIAN-C) History of tubal ligation Z98.51 Status post pericardiocentesis Z98.890 Surgical History: - - x 2, hysterectomy, AICD/pacemaker placement. 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 Smoking Status: Current every day smoker - *Family History Maternal Family History: Family History (Last Reviewed 11/17/19 @ 18:20 by Chau KENDALL, PA) Father CAD (coronary artery disease) Hypertension Mother CAD (coronary artery disease) Hypertension Diabetes Brother CAD (coronary artery disease) History Items: Diabetes, Heart Disease, Hypertension Paternal Family History: Family History (Last Reviewed 11/17/19 @ 18:20 by Chau KENDALL PA) Father CAD (coronary artery disease) Hypertension Mother CAD (coronary artery disease) Hypertension Diabetes Brother CAD (coronary artery disease) History Items: Heart Disease, Hypertension Review of Systems Constitutional: Denies: Chills, Fever, Weight Change HEENT: Denies: Head Aches, Sinus Congestion, Sinus Drainage Cardiovascular: Reports: Chest Tightness. Denies: Chest Pain, Palpitations Respiratory: Reports: Cough, Shortness of Breath, Shortness of breath at rest, Shortness of breath upon exertion Gastrointestinal: Denies: Abdominal Pain, Nausea, Vomiting Genitourinary: Denies: Dysuria, Frequency Musculoskeletal: Reports: Back Pain, Joint Pain. Denies: Joint Tenderness Skin: Denies: Rash, Wounds Neurological: Denies: Numbness, Tingling, Focal weakness Psychiatric: Reports: Anxiety, Depression. Denies: Homicidal Ideations, Suicidal Ideations Hematologic/ Lymphatic: Denies: Easy Bruising, Easy Bleeding VTE Information - Inpt Only VTE Present on Admission: No VTE Mechan Device Prophylaxis: None VTE Pharm Prophylaxis ordered?: Yes Patient Problems: Active and Suspected Problems (Last Updated 11/19/19 @ 08:[address] Antoine Arzola MD) Intractable right knee pain (Acute) Debility (Acute) COPD exacerbation (Acute) Chronic systolic congestive heart failure (Acute) Objective: General: Alert, Oriented x3, Cooperative HEENT: Atraumatic, PERRLA, EOMI, Normocephalic Oral: No Gingival or Mucosal Lesions/ Ulcerations Neck: Supple, No JVD, Negative Carotid Bruits Lungs: Air entry severely diminished in both lungs, almost silent lungs. Bilateral expiratory rhonchi. Cardiovascular: ICD present. Paced rhythm monitor. Normal S1, Normal S2, No murmurs Abdomen: Bowel Sounds Present, Soft, Non Tender, Non-Distended : No renal angle tenderness. No suprapubic tenderness. Extremities: Mild bilateral ankle edema, Capillary Refill Less than 3 Seconds Skin: No rashes, No breakdown Musculoskeletal: No Tenderness to Palpation of Joints or Extremities Neurological: Cranial nerves II-XII grossly intact, Deep Tendon Reflexes 2+/4 and Symmetrical, Neuro grossly intact Psych/Mental Status: Normal Affect, Appropriate. - Physical Exam Vitals/I&O's: Vital Signs Temp Pulse Resp BP Pulse Ox 97.4 F L 103 H 22 H 142/60 H 100 04/27/20 17:01 04/27/20 18:48 04/27/20 18:48 04/27/20 17:45 04/27/20 18:48 Oxygen Flow Rate (L/min) 3 Oxygen Delivery Method Nasal Cannula Weight: 143 lb 15.39 oz Body Mass Index (BMI) 23.2 Microbiology Past 72 Hours 04/27/20 18:29 Mucosa - Nose SARS-CoV-2 Antigen (Rapid) - Final Laboratory Results 04/27/20 18:29: WBC 7.6, RBC 4.83, Hgb 12.9, Hct 44.0, MCV 91.1, MCH 26.7 L, MCHC 29.3 L, RDW Std Deviation 46.6 H, RDW Coeff of Siobhan 13.8, Plt Count 274, MPV 8.5, Immature Gran % (Auto) 0.400, Neut % (Auto) 63.3, Lymph % (Auto) 30.2, [place] % (Auto) 4.6, Eos % (Auto) 1.2, Baso % (Auto) 0.3, Absolute Neuts (auto) 4.8, Absolute Lymphs (auto) 2.28, Nucleated RBC % 0 04/27/20 18:29: Sodium 141, Potassium 4.5, Chloride 98, Carbon Dioxide 43.0 H, Anion Gap 0 L, BUN 17, Creatinine 0.42 L, Estim Creat Clear Calc 131.68, Est GFR (MDRD) Af Amer 195, Est GFR (MDRD) Non-Af 161, BUN/Creatinine Ratio 40.2 H, Glucose 92, Calcium 9.6, Troponin I < 0.015 04/27/20 18:29: B-Natriuretic Peptide 43.1 04/27/20 18:29: Digoxin 0.56 L Assessment/Plan All Active Problems (Last Updated 11/19/19 @ 08:[address] Antoine Arzola MD) Intractable right knee pain (Acute) Debility (Acute) COPD exacerbation (Acute) Chronic systolic congestive heart failure (Acute) Knee sprain (Resolved) 1. Acute on Chronic hypercarbic and hypoxic respiratory failure due to COPD exacerbation most probably from viral bronchitis/noncompliance: ABG seven-point 3/85/144 on 3 L of oxygen nasal cannula. Patient on 3 L of home oxygen. Started on BiPAP and titrate to keep pulse ox 90%. Bronchodilator, Solu-Medrol, incentive spirometry, Mucinex and pep. Respiratory panel ordered. 2. Chronic systolic heart failure status post AICD, Takotsubo CM with dilated cardiomyopathy- continue coreg, digoxin, statin, losartan. Lasix resumed. Patient has mild ankle edema but no pulmonary edema. BNP normal. 3. Hypertension: Blood pressure is high in triage 204/75. Last 1, 140/60 4. severe osteoarthritis - right hip: Patient was last admitted for intractable right knee pain in November 2019. Patient follows Dr. Phipps. Currently stable. 5. Chronic hepatitis a 6. HLD - statin 7. History of V. tach in the past. coreg, digoxin 8. Hypothyroid - synthroid. TSH and free T4 a.m. Patient continues to smoke, nicotine dependence. Patient has history of relapse in remission. Smokes about half to 1 pack daily. Advised smoking cessation. DVT ppx: lovenox 40 mg subcu daily Living will/advanced directive/end of life care: Patient does not have living will or advanced directive. After discussion of benefits/risks procedures involved with full code, DNR CC arrest and DNR CC, the patient opted for DNR-CC Arrest with no intubation Patient does not want artificial life support including intubation, tube feed, ventilator and/chest compression, central venous catheter, vasopressor and DC shock if needed Total time spent in [id number] encounter in discussion of advanced directive 16 minutes. Microbiology Past 72 Hours 04/27/20 18:29 Mucosa - Nose SARS-CoV-2 Antigen (Rapid) - Final Laboratory Results 04/27/20 18:29: WBC 7.6, RBC 4.83, Hgb 12.9, Hct 44.0, MCV 91.1, MCH 26.7 L, MCHC 29.3 L, RDW Std Deviation 46.6 H, RDW Coeff of Siobhan 13.8, Plt Count 274, MPV 8.5, Immature Gran % (Auto) 0.400, Neut % (Auto) 63.3, Lymph % (Auto) 30.2, [place] % (Auto) 4.6, Eos % (Auto) 1.2, Baso % (Auto) 0.3, Absolute Neuts (auto) 4.8, Absolute Lymphs (auto) 2.28, Nucleated RBC % 0 04/27/20 18:29: Sodium 141, Potassium 4.5, Chloride 98, Carbon Dioxide 43.0 H, Anion Gap 0 L, BUN 17, Creatinine 0.42 L, Estim Creat Clear Calc 131.68, Est GFR (MDRD) Af Amer 195, Est GFR (MDRD) Non-Af 161, BUN/Creatinine Ratio 40.2 H, Glucose 92, Calcium 9.6, Troponin I < 0.015 04/27/20 18:29: B-Natriuretic Peptide 43.1 04/27/20 18:29: Digoxin 0.56 L 04/27/20 20:16: Specimen Type ART, Sample Site R Radial, pH 7.30 L, Bicarbonate Actual 42.3 H, Total CO2 45, Base Excess 16 H, O2 Saturation 99, ABG pCO2 85.6 H*, ABG pO2 144 H, Alexis Test Positive, O2 Delivery Device Cannula, Liter Flow 3.0, Crit Call To/Read Back Yes, Blood Gas Notified Whom er physician Inpatient E&M: 38436 Init Hosp L3 Procedures: 02039 Advncd Care Plan 30 Min
[2020-04-27 20:21] LABS: Allen Test Positive; Base Excess 16 mmol/L (-2 to +2); Bicarbonate 42.3 mmol/L (22-26); Blood Gas Specimen Type ART; O2 Delivery Device Cannula; PO2 144 mmHG (75-100); SITE R Radial; SO2 99 % (95-99); Total Carbon Dioxide 45 mmol/L; pCO2 85.6 mmHg (35-45)
[2020-04-27] MEDS: MethylPREDNISolone 125 MG/2 ML Vial IV (20:38)
[2020-04-27] MEDS: Furosemide 40 MG/4 ML Vial IV (21:58)
[2020-04-27] MEDS: Morphine 2 MG/ML Syringe IV (21:58)
[2020-04-27 22:10] LABS: Magnesium 2.1 mg/dL (1.6-2.6)
[2020-04-27] MEDS: guaiFENesin 1,200 MG Tablet 1200 MG PO (23:00)
[2020-04-27] MEDS: Azithromycin 250 MG Tablet 500 MG PO (23:00)
[2020-04-27] MEDS: Atorvastatin Calcium 40 MG Tablet PO (23:01)
[2020-04-27] MEDS: Carvedilol 12.5 MG Tablet PO (23:01)
[2020-04-27] MEDS: 0.9% Normal Saline 1,000 ML 75 ML IV (23:01)
[2020-04-28] VITALS (15 sets, daily range): BP systolic 124–187; BP diastolic 64–83; PULSE 84–114; RESP 12–22; TEMP 36.3–37.4; O2SAT 88–96
[2020-04-28] MEDS: Levothyroxine 25 MCG TABLET PO (05:11)
[2020-04-28] MEDS: Morphine 2 MG/ML Syringe IV ×2 (05:11→23:14)
[2020-04-28] MEDS: 0.9% Saline Lock 10 ML Syringe IV ×5 (05:13→23:14)
[2020-04-28 05:55] LABS: Absolute Lymphocyte Count 1.07 X10^3/uL (0.83-4.51); Absolute Neutrophil Count 4.6 X10^3/uL (2.0-7.7); Eosinophil# 0.01 X10^3/uL; Eosinophils% 0.2 % (0-5); Hematocrit 39.2 % (37-47); Hemoglobin 11.8 g/dL (12.0-15.0); Lymphocyte # 1.07 X10^3/ul (4.0); Lymphocyte % 18.5 % (19-41); Mean Corp Hgb Conc 30.1 g/dL (32-36); Mean Corpuscular Hgb 27.1 pg (27.0-32.0); Mean Corpuscular Volume 90.1 fL (81-99); Mean Platelet Vol. 8.7 fl (6.2-12.0); Monocyte# 0.04 X10^3/uL; Monocyte% 0.7 % (0-10); NRBC Flagged by Analyzer 0 % (0-5); Neutrophil # 4.62 X10^3/uL (2.7-7.7); Neutrophil % 80.1 % (47-70); Platelet Count 218 K/mm3 (150-450); RBC Distribution Width CV 13.9 % (11.6-14.6); RBC Distribution Width SD 45.3 fl (35.1-43.9); Red Blood Count 4.35 M/mm3 (4.2-5.4); White Blood Count 5.8 K/mm3 (4.4-11.0)
[2020-04-28 06:26] LABS: Anion Gap 3 (5-15); BUN 25 mg/dL (7-18); BUN/Creat Ratio 61.4 RATIO (10-20); Calcium,Total 9.1 mg/dL (8.5-10.1); Chloride 98 mmol/L (98-107); Creatinine, Serum 0.41 mg/dL (0.55-1.02); EST Glomerular Filtration Rate 169 mL/min (>60); Est Glom Filt Rate - Afr Amer 204 mL/min (>60); Glucose 157 mg/dL (74-106); Potassium 3.9 mmol/L (3.5-5.1); Sodium Level 136 mmol/L (136-145)
[2020-04-28] MEDS: Ipratropium/Albuterol Sulfate 3 ML AMPUL.NEB INHALATION ×4 (07:00→19:27)
[2020-04-28] MEDS: Carvedilol 12.5 MG Tablet PO ×2 (09:22→21:04)
[2020-04-28] MEDS: Furosemide 40 MG Tablet PO (09:23)
[2020-04-28] MEDS: Losartan Potassium 50 MG Tablet PO (09:23)
[2020-04-28] MEDS: Enoxaparin 40 MG/0.4 ML Syringe SC (09:23)
[2020-04-28] MEDS: Digoxin 250 MCG Tablet PO (09:23)
[2020-04-28] MEDS: Azithromycin 250 MG Tablet 500 MG PO (09:24)
[2020-04-28] MEDS: guaiFENesin 1,200 MG Tablet 1200 MG PO ×2 (09:24→21:04)
[2020-04-28] MEDS: oxyCODONE 5 MG Tablet PO ×2 (09:28→21:08)
[2020-04-28] MEDS: Acetaminophen 325 MG Tablet 650 MG PO ×2 (09:29→21:08)
--- NOTE | 2020-04-28 11:00 | PN_ITS ---
Patient Problems: Active and Suspected Problems (Last Updated 11/19/19 @ 08:[address] Antoine Arzola MD) Intractable right knee pain (Acute) Debility (Acute) COPD exacerbation (Acute) Chronic systolic congestive heart failure (Acute) Subjective: Patient seen and examined. She was admitted with a complaint of shortness of breath and is being managed for acute on chronic exacerbation of COPD. She has been managed for acute exacerbation of COPD. She states she is feeling better this morning. She still has a baseline short ness of breath and feels that her lungs feel tight. She still coughing. Review of systems otherwise negative. She remains hemodynamically stable. She is on 3 L of oxygen which is her baseline. Review of systems otherwise negative. Vitals/I&O's: Vital Signs Temp Pulse Resp BP Pulse Ox 97.9 F 92 20 H 124/69 H 96 04/28/20 09:02 04/28/20 09:02 04/28/20 09:02 04/28/20 09:02 04/28/20 09:02 Oxygen Flow Rate (L/min) 3 Oxygen Delivery Method Nasal Cannula Weight: 139 lb 8.842 oz Body Mass Index (BMI) 27.2 Intake and Output for Last 24 Hours 04/26/20 04/27/20 04/28/20 23:59 23:59 23:59 Intake Total 540 / 540 Balance 540 / 540 General: Alert, Oriented x3, Cooperative HEENT: Atraumatic, PERRLA, EOMI, Normocephalic Oral: Moist Mucosa Neck: Supple, No JVD, Negative Carotid Bruits Lungs: - - diminished breath sounds in all mccray; lungs sound very tight. on 3L of oxygen. No wheezing. Cardiovascular: Regular rate, Regular Rhythm, Normal S1, Normal S2, No murmurs Abdomen: Bowel Sounds Present, Soft, Non Tender Extremities: No clubbing, No cyanosis, No edema, Capillary Refill Less than 3 Seconds Skin: No rashes, No breakdown Musculoskeletal: No Tenderness to Palpation of Joints or Extremities Lymphatic: No Cervical, Supraclavicular, or Inguinal Adenopathy Neurological: Cranial nerves II-XII grossly intact, Neuro grossly intact, Motor Exam 5/5 strength throughout Psych/Mental Status: Normal Affect, Appropriate, Alert and oriented to time, place, person, mood and affect Microbiology Past 72 Hours 04/27/20 21:53 Mucosa - Nasopharyngeal Respiratory Panel (PCR) - Final 04/27/20 18:29 Mucosa - Nose SARS-CoV-2 Antigen (Rapid) - Final Laboratory Results 04/27/20 18:29: WBC 7.6, RBC 4.83, Hgb 12.9, Hct 44.0, MCV 91.1, MCH 26.7 L, MCHC 29.3 L, RDW Std Deviation 46.6 H, RDW Coeff of Siobhan 13.8, Plt Count 274, MPV 8.5, Immature Gran % (Auto) 0.400, Neut % (Auto) 63.3, Lymph % (Auto) 30.2, Dixie % (Auto) 4.6, Eos % (Auto) 1.2, Baso % (Auto) 0.3, Absolute Neuts (auto) 4.8, Absolute Lymphs (auto) 2.28, Nucleated RBC % 0 04/27/20 18:29: Sodium 141, Potassium 4.5, Chloride 98, Carbon Dioxide 43.0 H, Anion Gap 0 L, BUN 17, Creatinine 0.42 L, Estim Creat Clear Calc 131.68, Est GFR (MDRD) Af Amer 195, Est GFR (MDRD) Non-Af 161, BUN/Creatinine Ratio 40.2 H, Glucose 92, Calcium 9.6, Troponin I < 0.015 04/27/20 18:29: B-Natriuretic Peptide 43.1 04/27/20 18:29: Digoxin 0.56 L 04/27/20 18:29: Magnesium 2.1 04/27/20 20:16: Specimen Type ART, Sample Site R Radial, pH 7.30 L, Bicarbonate Actual 42.3 H, Total CO2 45, Base Excess 16 H, O2 Saturation 99, ABG pCO2 85.6 H*, ABG pO2 144 H, Alexis Test Positive, O2 Delivery Device Cannula, Liter Flow 3.0, Crit Call To/Read Back Yes, Blood Gas Notified Whom er physician 04/28/20 05:26: WBC 5.8, RBC 4.35, Hgb 11.8 L, Hct 39.2, MCV 90.1, MCH 27.1, MCHC 30.1 L, RDW Std Deviation 45.3 H, RDW Coeff of Siobhan 13.9, Plt Count 218, MPV 8.7, Immature Gran % (Auto) 0.500, Neut % (Auto) 80.1 H, Lymph % (Auto) 18.5 L, Dixie % (Auto) 0.7, Eos % (Auto) 0.2, Baso % (Auto) 0.0, Absolute Neuts (auto) 4.6, Absolute Lymphs (auto) 1.07, Nucleated RBC % 0 04/28/20 05:26: Sodium 136, Potassium 3.9, Chloride 98, Carbon Dioxide 35.0 H, Anion Gap 3 L, BUN 25 H, Creatinine 0.41 L, Estim Creat Clear Calc 103.50, Est GFR (MDRD) Af Amer 204, Est GFR (MDRD) Non-Af 169, BUN/Creatinine Ratio 61.4 H, Glucose 157 H, Calcium 9.1 Current Medications Acetaminophen (Acetaminophen 325 Mg Tablet) 650 mg PO Q6H PRN PRN PRN Reason: Pain Score 1-10/Temp > 100.7 F Last Admin: 04/28/20 09:29 Dose: 650 mg Documented by: Al Hydroxide/Mg Hydroxide (Mag Hydrox/Al Hydrox/Simeth 30 Ml Udc) 30 ml PO Q6H PRN PRN PRN Reason: Gastric Burning Albuterol Sulfate (Albuterol 2.5 Mg/3 Ml Vial.Neb.) 2.5 mg INHALATION Q2H PRN PRN PRN Reason: SOB/Wheezing Albuterol/Ipratropium (Ipratropium/Albuterol Sulfate 3 Ml Ampul.Neb) 3 ml INHALATION Q4H.RT [facility] Last Admin: 04/28/20 07:00 Dose: 3 ml Documented by: Atorvastatin Calcium (Atorvastatin Calcium 40 Mg Tablet) 40 mg PO QHS [facility] Last Admin: 04/27/20 23:01 Dose: 40 mg Documented by: Azithromycin (Azithromycin 250 Mg Tablet) 500 mg PO Q24 [facility] Stop: 05/01/20 10:01 Last Admin: 04/28/20 09:24 Dose: 500 mg Documented by: Carvedilol (Carvedilol 12.5 Mg Tablet) 12.5 mg PO BID [facility] Last Admin: 04/28/20 09:22 Dose: 12.5 mg Documented by: Digoxin (Digoxin 250 Mcg Tablet) 250 mcg PO DAILY [facility] Last Admin: 04/28/20 09:23 Dose: 250 mcg Documented by: Enoxaparin Sodium (Enoxaparin 40 Mg/0.4 Ml Syringe) 40 mg SC DAILY [facility] Last Admin: 04/28/20 09:23 Dose: 40 mg Documented by: Furosemide (Furosemide 40 Mg Tablet) 40 mg PO DAILY [facility] Last Admin: 04/28/20 09:23 Dose: 40 mg Documented by: Guaifenesin (Guaifenesin 1,200 Mg Tablet) 1,200 mg PO BID [facility] Last Admin: 04/28/20 09:24 Dose: 1,200 mg Documented by: Levothyroxine Sodium (Levothyroxine 25 Mcg Tablet) 25 mcg PO DAILY@0600 [facility] Last Admin: 04/28/20 05:11 Dose: 25 mcg Documented by: Losartan Potassium (Losartan Potassium 50 Mg Tablet) 50 mg PO DAILY [facility] Last Admin: 04/28/20 09:23 Dose: 50 mg Documented by: Methylprednisolone (Methylprednisolone 40 Mg/Ml Vial) 40 mg IV Q8 [facility] Last Admin: 04/28/20 05:11 Dose: 40 mg Documented by: Morphine Sulfate (Morphine 2 Mg/Ml Syringe) 2 mg IV Q3H PRN PRN PRN Reason: Pain Score 6-10 Last Admin: 04/28/20 05:11 Dose: 2 mg Documented by: Nitroglycerin (Nitroglycerin (Inpatient Use) 0.4 Mg Tab.Subl) 0.4 mg SL Q5M PRN PRN Reason: CARDIAC/CHEST PAIN Oxycodone HCl (Oxycodone 5 Mg Tablet) 5 mg PO Q4H PRN PRN PRN Reason: Pain Score 4-5 Last Admin: 04/28/20 09:28 Dose: 5 mg Documented by: Senna/Docusate Sodium (Senna/Docusate Sodium 1 Tablet) 2 tablet PO BID PRN PRN PRN Reason: Constipation Sodium Chloride (0.9% Saline Lock 10 Ml Syringe) 10 - 40 ml IV UD PRN PRN Reason: SALINE FLUSH Last Admin: 04/28/20 05:13 Dose: 10 ml Documented by: STROKE Vital Signs/Narrative: Vital Signs Temp Pulse Resp BP Pulse Ox 04/28/20 09:02 97.9 F 92 20 H 124/69 H 96 04/28/20 07:45 102 H Medical Necessity - Tobacco Use Smoking Status: Current every day smoker Assessment/Plan All Active Problems (Last Updated 11/19/19 @ 08:[address] Antoine Arzola MD) Intractable right knee pain (Acute) Debility (Acute) COPD exacerbation (Acute) Chronic systolic congestive heart failure (Acute) Knee sprain (Resolved) #acute exacerbation of COPD * On his baseline 3 L of oxygen this morning. Was on BiPAP during the night. * Lungs still sound tight. On breathing treatments with bronchodilators. * Titrate oxygen to maintain saturation above 90%. Continue IV Solu Medrol. * Incentive spirometry. * BiPAP as needed. #Acute on CHronic hypoxic and hypercapnic respiratory failure due to COPD * back on her baseline 3 L of oxygen. * management as above * #HFrEF; s/p ICD. on coreg, digoxin, statin and losartan. on lasix. Not in exacerbation #Hypertension: on losartan and carvedilol #History of Vtach: on digoxin nad coreg #Hypothyroidism: on synthroid #Nicotine dependence: counseled to quit. nicotine patch 21mg daily #Chronic metabolic alkalosis: bicarb is 35. likely secondary to chronic hypercapnia DVT prophylaxis: lovenox Inpatient E&M: 41364 Subs Hosp L3
--- NOTE | 2020-04-28 16:16 | CM.UR ---
RN CM Assessment Introduced role of RN CM to patient.? Patient is alert, oriented and able?to participate in RN CM Assessment. ?Care providers, pharmacy, and demographics verified. Presentation: Shortness of breath Admit Dx: COPD exacerbation Re-Admit: No Barriers/Issues: none PCP: Has a [employer] that comes to the home. Asked if it was from [facility] but she said no--it is from [facility]. Specialists: Dr. Wallace for pulm and Dr. Yeboah but hasn't seen any of them for awhile. [facility] Insurance: [facility]. Rx Benefit:?Yes through her [facility]. Has no copays for medications. ?LNOK: daughter, Natasha LW/HPOA: no, declined information at this time. Living Arrangements:? Living with brother in a camper. has 4 steps into camper. States able to get in and out with help. She previously lived with her daughter and her boyfriend but the boyfriend started doing drugs so they moved out. She lived with her son for a while in [place] but she got very depressed so her brother came and got her. ADL?s: States a couple steps into shower and she can't do them well so she continues to sponge bathe. States needs min assist with some ADLs. States she has a waiver aide 2x a week for 3 hours at a time. States she will help her with any ADLs plus she does some light housekeeping and cooks meals. Transportation: Used [facility] van for appointments. Brother as well. DME: 2 WW, has o2 from [employer], nebulizer, shower bench, BSC. HHC: Had but can't remember the name of company. States they only came a couple times then stopped. SNF: [facility] Goal: Home DC PLAN: Home. She is currently on her baseline O2. Denies need for HHC. Alerted patient that case management will remain available should any needs arise. Verb understanding. Jack Gould RN, CCM.
[2020-04-28] MEDS: Atorvastatin Calcium 40 MG Tablet PO (21:04)
[2020-04-28] MEDS: Metoclopramide 10 MG/2 ML Vial 5 MG IV (22:19)
[2020-04-29] VITALS (21 sets, daily range): BP systolic 113–143; BP diastolic 73–91; PULSE 91–112; RESP 12–24; TEMP 36.3–36.9; O2SAT 90–98
[2020-04-29] MEDS: hydrALAZINE 20 MG/ML Vial 10 MG IV (00:28)
[2020-04-29] MEDS: hydroCHLOROthiazide 25 MG Tablet PO ×2 (00:29→08:38)
[2020-04-29] MEDS: 0.9% Saline Lock 10 ML Syringe IV ×3 (00:29→20:56)
[2020-04-29] MEDS: Levothyroxine 25 MCG TABLET PO (05:01)
[2020-04-29 06:51] LABS: Absolute Neutrophil Count 8.3 X10^3/uL (2.0-7.7); Basophil# 0.01 X10^3/uL; Basophil% 0.1 % (0-1); Hematocrit 40.2 % (37-47); Hemoglobin 12.1 g/dL (12.0-15.0); Lymphocyte % 18.7 % (19-41); Mean Corp Hgb Conc 30.1 g/dL (32-36); Mean Corpuscular Hgb 26.2 pg (27.0-32.0); Mean Corpuscular Volume 87.2 fL (81-99); Mean Platelet Vol. 9.3 fl (6.2-12.0); Monocyte# 0.32 X10^3/uL; NRBC Flagged by Analyzer 0 % (0-5); Neutrophil # 8.32 X10^3/uL (2.7-7.7); Neutrophil % 77.6 % (47-70); Platelet Count 301 K/mm3 (150-450); RBC Distribution Width CV 14.1 % (11.6-14.6); Red Blood Count 4.61 M/mm3 (4.2-5.4); White Blood Count 10.7 K/mm3 (4.4-11.0)
[2020-04-29] MEDS: Ipratropium/Albuterol Sulfate 3 ML AMPUL.NEB INHALATION ×5 (06:53→23:16)
[2020-04-29 07:14] LABS: Anion Gap 3 (5-15); BUN 30 mg/dL (7-18); BUN/Creat Ratio 54.2 RATIO (10-20); Chloride 99 mmol/L (98-107); Creatinine, Serum 0.55 mg/dL (0.55-1.02); EST Glomerular Filtration Rate 118 mL/min (>60); Est Glom Filt Rate - Afr Amer 143 mL/min (>60); Estimated Creatinine Clearance 77.15 ml/min; Glucose 168 mg/dL (74-106); Potassium 3.9 mmol/L (3.5-5.1); Sodium Level 136 mmol/L (136-145)
[2020-04-29] MEDS: Losartan Potassium 50 MG Tablet PO (08:37)
[2020-04-29] MEDS: Carvedilol 12.5 MG Tablet PO ×2 (08:37→20:57)
[2020-04-29] MEDS: Furosemide 40 MG Tablet PO (08:38)
[2020-04-29] MEDS: Digoxin 250 MCG Tablet PO (08:38)
[2020-04-29] MEDS: guaiFENesin 1,200 MG Tablet 1200 MG PO ×2 (08:39→20:56)
[2020-04-29] MEDS: Azithromycin 250 MG Tablet 500 MG PO (08:39)
[2020-04-29] MEDS: Enoxaparin 40 MG/0.4 ML Syringe SC (08:39)
--- NOTE | 2020-04-29 09:44 | PN_ITS ---
Patient Problems: Active and Suspected Problems (Last Updated 11/19/19 @ 08:[address] Antoine Arzola MD) Intractable right knee pain (Acute) Debility (Acute) COPD exacerbation (Acute) Chronic systolic congestive heart failure (Acute) Subjective: Patient seen and examined. States she had a bad night with she had several bouts of nausea. She does not think her shortness of breath has worsened. She was tachycardic overnight though. Is now over 4 L of oxygen with heart rate is 103 this morning. Vitals/I&O's: Vital Signs Temp Pulse Resp BP Pulse Ox 98.4 F 103 H 20 H 132/91 H 94 04/29/20 08:28 04/29/20 08:28 04/29/20 08:28 04/29/20 08:28 04/29/20 08:28 Oxygen Flow Rate (L/min) 4 Oxygen Delivery Method Nasal Cannula Weight: 139 lb 8.842 oz Body Mass Index (BMI) 27.2 Intake and Output for Last 24 Hours 04/27/20 04/28/20 04/30/20 23:59 23:59 00:59 Intake Total 2120 / 2360 300 / 300 Output Total 200 / 300 300 / 300 Balance 1920 / 2060 0 / 0 General: Alert, Oriented x3, Cooperative HEENT: Atraumatic, PERRLA, EOMI, Normocephalic Oral: Moist Mucosa Neck: Supple, No JVD, Negative Carotid Bruits Lungs: - - diminished breath sounds in all mccray; lungs still sound tight. on 4L of oxygen. No wheezing. Cardiovascular: Regular rate, Regular Rhythm, Normal S1, Normal S2, No murmurs Abdomen: Bowel Sounds Present, Soft, Non Tender Extremities: No clubbing, No cyanosis, No edema, Capillary Refill Less than 3 Seconds Skin: No rashes, No breakdown Musculoskeletal: No Tenderness to Palpation of Joints or Extremities Lymphatic: No Cervical, Supraclavicular, or Inguinal Adenopathy Neurological: Cranial nerves II-XII grossly intact, Neuro grossly intact, Motor Exam 5/5 strength throughout Psych/Mental Status: Normal Affect, Appropriate, Alert and oriented to time, place, person, mood and affect Microbiology Past 72 Hours 04/27/20 21:53 Mucosa - Nasopharyngeal Respiratory Panel (PCR) - Final 04/27/20 18:29 Mucosa - Nose SARS-CoV-2 Antigen (Rapid) - Final Laboratory Results 04/29/20 05:10: WBC 10.7, RBC 4.61, Hgb 12.1, Hct 40.2, MCV 87.2, MCH 26.2 L, MCHC 30.1 L, RDW Std Deviation 45.0 H, RDW Coeff of Siobhan 14.1, Plt Count 301, MPV 9.3, Immature Gran % (Auto) 0.600, Neut % (Auto) 77.6 H, Lymph % (Auto) 18.7 L, Evans % (Auto) 3.0, Eos % (Auto) 0.0, Baso % (Auto) 0.1, Absolute Neuts (auto) 8.3 H, Absolute Lymphs (auto) 2.00, Nucleated RBC % 0 04/29/20 05:10: Sodium 136, Potassium 3.9, Chloride 99, Carbon Dioxide 34.0 H, Anion Gap 3 L, BUN 30 H, Creatinine 0.55, Estim Creat Clear Calc 77.15, Est GFR (MDRD) Af Amer 143, Est GFR (MDRD) Non-Af 118, BUN/Creatinine Ratio 54.2 H, Glucose 168 H, Calcium 9.0 Current Medications Acetaminophen (Acetaminophen 325 Mg Tablet) 650 mg PO Q6H PRN PRN PRN Reason: Pain Score 1-10/Temp > 100.7 F Last Admin: 04/28/20 21:08 Dose: 650 mg Documented by: Al Hydroxide/Mg Hydroxide (Mag Hydrox/Al Hydrox/Simeth 30 Ml Udc) 30 ml PO Q6H PRN PRN PRN Reason: Gastric Burning Albuterol Sulfate (Albuterol 2.5 Mg/3 Ml Vial.Neb.) 2.5 mg INHALATION Q2H PRN PRN PRN Reason: SOB/Wheezing Albuterol/Ipratropium (Ipratropium/Albuterol Sulfate 3 Ml Ampul.Neb) 3 ml INHALATION Q4H.RT [facility] Last Admin: 04/29/20 06:53 Dose: 3 ml Documented by: Atorvastatin Calcium (Atorvastatin Calcium 40 Mg Tablet) 40 mg PO QHS [facility] Last Admin: 04/28/20 21:04 Dose: 40 mg Documented by: Azithromycin (Azithromycin 250 Mg Tablet) 500 mg PO Q24 [facility] Stop: 05/01/20 10:01 Last Admin: 04/29/20 08:39 Dose: 500 mg Documented by: Carvedilol (Carvedilol 12.5 Mg Tablet) 12.5 mg PO BID [facility] Last Admin: 04/29/20 08:37 Dose: 12.5 mg Documented by: Digoxin (Digoxin 250 Mcg Tablet) 250 mcg PO DAILY [facility] Last Admin: 04/29/20 08:38 Dose: 250 mcg Documented by: Enoxaparin Sodium (Enoxaparin 40 Mg/0.4 Ml Syringe) 40 mg SC DAILY [facility] Last Admin: 04/29/20 08:39 Dose: 40 mg Documented by: Furosemide (Furosemide 40 Mg Tablet) 40 mg PO DAILY [facility] Last Admin: 04/29/20 08:38 Dose: 40 mg Documented by: Guaifenesin (Guaifenesin 1,200 Mg Tablet) 1,200 mg PO BID [facility] Last Admin: 04/29/20 08:39 Dose: 1,200 mg Documented by: Hydralazine HCl (Hydralazine 20 Mg/Ml Vial) 10 mg IV Q4H PRN PRN PRN Reason: SBP>120 mmhg Last Admin: 04/29/20 00:28 Dose: 10 mg Documented by: Hydrochlorothiazide (Hydrochlorothiazide 25 Mg Tablet) 25 mg PO DAILY [facility] Last Admin: 04/29/20 08:38 Dose: 25 mg Documented by: Levothyroxine Sodium (Levothyroxine 25 Mcg Tablet) 25 mcg PO DAILY@0600 [facility] Last Admin: 04/29/20 05:01 Dose: 25 mcg Documented by: Losartan Potassium (Losartan Potassium 50 Mg Tablet) 50 mg PO DAILY [facility] Last Admin: 04/29/20 08:37 Dose: 50 mg Documented by: Methylprednisolone (Methylprednisolone 40 Mg/Ml Vial) 40 mg IV Q8 [facility] Last Admin: 04/29/20 05:00 Dose: 40 mg Documented by: Metoclopramide HCl (Metoclopramide 10 Mg/2 Ml Vial) 5 mg IV Q6H PRN PRN PRN Reason: NAUSEA/VOMTING Last Admin: 04/28/20 22:19 Dose: 5 mg Documented by: Morphine Sulfate (Morphine 2 Mg/Ml Syringe) 2 mg IV Q3H PRN PRN PRN Reason: Pain Score 6-10 Last Admin: 04/28/20 23:14 Dose: 2 mg Documented by: Nitroglycerin (Nitroglycerin (Inpatient Use) 0.4 Mg Tab.Subl) 0.4 mg SL Q5M PRN PRN Reason: CARDIAC/CHEST PAIN Oxycodone HCl (Oxycodone 5 Mg Tablet) 5 mg PO Q4H PRN PRN PRN Reason: Pain Score 4-5 Last Admin: 04/28/20 21:08 Dose: 5 mg Documented by: Senna/Docusate Sodium (Senna/Docusate Sodium 1 Tablet) 2 tablet PO BID PRN PRN PRN Reason: Constipation Sodium Chloride (0.9% Saline Lock 10 Ml Syringe) 10 - 40 ml IV UD PRN PRN Reason: SALINE FLUSH Last Admin: 04/29/20 05:01 Dose: 10 ml Documented by: STROKE Vital Signs/Narrative: Vital Signs Temp Pulse Resp BP Pulse Ox 04/29/20 08:28 98.4 F 103 H 20 H 132/91 H 94 04/29/20 07:37 101 H 04/29/20 06:53 102 H 20 H 95 04/29/20 06:41 97.9 F 101 H 19 H 124/73 H 95 Medical Necessity - Tobacco Use Smoking Status: Current every day smoker Assessment/Plan All Active Problems (Last Updated 11/19/19 @ 08:[address] Antoine Arzola MD) Intractable right knee pain (Acute) Debility (Acute) COPD exacerbation (Acute) Chronic systolic congestive heart failure (Acute) Knee sprain (Resolved) #acute exacerbation of COPD * now on 4L of oxygen. was tachycardic overnight. Lungs still sound tight * on IV solumedrol * Lungs still sound tight. On breathing treatments with bronchodilators. * will hold albuterol inhaler due to tachycardia; continue IV duonebs * BIPAP prn * #Acute on CHronic hypoxic and hypercapnic respiratory failure due to COPD * on 4L of oxygen. * management as above * #HFrEF: s/p ICD. on coreg, digoxin, statin and losartan. on lasix. Not in exacerbation #Hypertension: on losartan and carvedilol #History of Vtach: on digoxin and coreg #Hypothyroidism: on synthroid #Nicotine dependence: counseled to quit. nicotine patch 21mg daily #Chronic metabolic alkalosis: bicarb is 34. likely secondary to chronic hypercapnia DVT prophylaxis: lovenox Inpatient E&M: [id number] [facility] Hosp L3
[2020-04-29] MEDS: oxyCODONE 5 MG Tablet PO ×2 (12:27→20:59)
[2020-04-29] MEDS: Atorvastatin Calcium 40 MG Tablet PO (20:56)
[2020-04-29] MEDS: Acetaminophen 325 MG Tablet 650 MG PO (20:59)
[2020-04-30] VITALS (15 sets, daily range): BP systolic 118–147; BP diastolic 77–97; PULSE 79–105; RESP 12–20; TEMP 36.6–37; O2SAT 92–98
[2020-04-30] MEDS: Ipratropium/Albuterol Sulfate 3 ML AMPUL.NEB INHALATION ×6 (03:09→23:16)
[2020-04-30] MEDS: Acetaminophen 325 MG Tablet 650 MG PO ×4 (03:17→21:26)
[2020-04-30] MEDS: oxyCODONE 5 MG Tablet PO ×4 (03:17→21:26)
[2020-04-30] MEDS: Levothyroxine 25 MCG TABLET PO (05:10)
[2020-04-30] MEDS: 0.9% Saline Lock 10 ML Syringe IV (05:10)
[2020-04-30 05:21] LABS: Absolute Lymphocyte Count 1.97 X10^3/uL (0.83-4.51); Basophil# 0.01 X10^3/uL; Basophil% 0.1 % (0-1); Hematocrit 38.9 % (37-47); Hemoglobin 12.1 g/dL (12.0-15.0); Lymphocyte # 1.97 X10^3/ul (4.0); Lymphocyte % 23.6 % (19-41); Mean Corp Hgb Conc 31.1 g/dL (32-36); Mean Corpuscular Hgb 26.7 pg (27.0-32.0); Mean Corpuscular Volume 85.9 fL (81-99); Mean Platelet Vol. 8.8 fl (6.2-12.0); Monocyte# 0.37 X10^3/uL; Monocyte% 4.4 % (0-10); NRBC Flagged by Analyzer 0 % (0-5); Neutrophil # 5.98 X10^3/uL (2.7-7.7); Neutrophil % 71.7 % (47-70); Platelet Count 241 K/mm3 (150-450); RBC Distribution Width CV 14.3 % (11.6-14.6); RBC Distribution Width SD 43.9 fl (35.1-43.9); Red Blood Count 4.53 M/mm3 (4.2-5.4); White Blood Count 8.4 K/mm3 (4.4-11.0)
[2020-04-30 05:34] LABS: Anion Gap 4 (5-15); BUN 28 mg/dL (7-18); BUN/Creat Ratio 45.3 RATIO (10-20); Chloride 94 mmol/L (98-107); Creatinine, Serum 0.62 mg/dL (0.55-1.02); EST Glomerular Filtration Rate 104 mL/min (>60); Est Glom Filt Rate - Afr Amer 126 mL/min (>60); Estimated Creatinine Clearance 68.44 ml/min; Glucose 159 mg/dL (74-106); Potassium 3.8 mmol/L (3.5-5.1); Sodium Level 134 mmol/L (136-145)
[2020-04-30] MEDS: Carvedilol 12.5 MG Tablet PO ×2 (08:29→21:26)
[2020-04-30] MEDS: hydroCHLOROthiazide 25 MG Tablet PO (08:32)
[2020-04-30] MEDS: Furosemide 40 MG Tablet PO (08:32)
[2020-04-30] MEDS: Losartan Potassium 50 MG Tablet PO (08:32)
[2020-04-30] MEDS: Digoxin 250 MCG Tablet PO (08:32)
[2020-04-30] MEDS: Enoxaparin 40 MG/0.4 ML Syringe SC (08:33)
[2020-04-30] MEDS: guaiFENesin 1,200 MG Tablet 1200 MG PO ×2 (08:33→21:27)
[2020-04-30] MEDS: Azithromycin 250 MG Tablet 500 MG PO (08:33)
--- NOTE | 2020-04-30 14:10 | CASEMGMT ---
Addendum entered by Ana Dai 04/30/20 14:59: SW spoke w/Lore from [facility], they can take pt and will start the precert process. SW let pt know, she is agreeable. SW will continue to follow for discharge to [facility] when medically ready. PAULINA Victor Original Note: As per therapy, pt stating needs placed for rehab. SW met w/pt in room, spoke w/pt about [facility] a [facility] facility for rehab. List of SNF providers including quality and resource use data and is consistent with the patient's preferred geographic region, medical needs and insurance network provided. Pt would like to be in [place] if possible, we reviewed the facilities in [place], her first choice would be [facility]. SW explained will make referral and let her know. SW called [facility], spoke w/Lore, referral faxed. SW also called pt's vocational case manager with [employer] at [phone], and left her a message letting her know that we are working on halfway placement. SW will continue to follow. PAULINA Victor
--- NOTE | 2020-04-30 14:38 | CASEMGMT ---
Dr. Norwood placed order for palliative c/s at this time and pt does also qualify for palliative referral via [facility] palliative screening tool. Referral faxed to palliative and palliative notified of referral at this time. Martha RESENDIZ CM
[2020-04-30] MEDS: Metoclopramide 10 MG/2 ML Vial 5 MG IV (14:59)
--- NOTE | 2020-04-30 16:49 | PCM.PN.HOSP ---
Patient Problems: Active and Suspected Problems (Last Updated 11/19/19 @ 08:[address] Antoine Arzola MD) Intractable right knee pain (Acute) Debility (Acute) COPD exacerbation (Acute) Chronic systolic congestive heart failure (Acute) Subjective: breathing better. Vitals/I&O's: Vital Signs Temp Pulse Resp BP Pulse Ox 36.6 C 85 20 H 128/88 H 93 04/30/20 15:00 04/30/20 15:10 04/30/20 15:10 04/30/20 15:00 04/30/20 15:00 Oxygen Flow Rate (L/min) 3 Oxygen Delivery Method Nasal Cannula Weight: 63.3 kg Body Mass Index (BMI) 27.2 Intake and Output for Last 24 Hours 04/28/20 04/29/20 04/30/20 22:59 23:59 23:59 Intake Total 405 / 405 Output Total 460 / 460 Balance -55 / -55 General: Alert, No apparent distress HEENT: Atraumatic Oral: Moist Mucosa, No Gingival or Mucosal Lesions/ Ulcerations Neck: No Nodes, Thyroid Normal Size and Texture Lungs: Normal air movement, Diminished Cardiovascular: Regular rate, Regular Rhythm, Normal S1, Normal S2, No murmurs Abdomen: Bowel Sounds Present, Soft, Non Tender, Non-Distended, No Hepato-splenomegaly Extremities: No edema, No Calf Tenderness Psych/Mental Status: Normal Affect, Appropriate Microbiology Past 72 Hours 04/27/20 21:53 Mucosa - Nasopharyngeal Respiratory Panel (PCR) - Final 04/27/20 18:29 Mucosa - Nose SARS-CoV-2 Antigen (Rapid) - Final Laboratory Results 04/30/20 05:04: WBC 8.4, RBC 4.53, Hgb 12.1, Hct 38.9, MCV 85.9, MCH 26.7 L, MCHC 31.1 L, RDW Std Deviation 43.9, RDW Coeff of Siobhan 14.3, Plt Count 241, MPV 8.8, Immature Gran % (Auto) 0.200, Neut % (Auto) 71.7 H, Lymph % (Auto) 23.6, Jennings % (Auto) 4.4, Eos % (Auto) 0.0, Baso % (Auto) 0.1, Absolute Neuts (auto) 6.0, Absolute Lymphs (auto) 1.97, Nucleated RBC % 0 04/30/20 05:04: Sodium 134 L, Potassium 3.8, Chloride 94 L, Carbon Dioxide 36.0 H, Anion Gap 4 L, BUN 28 H, Creatinine 0.62, Estim Creat Clear Calc 68.44, Est GFR (MDRD) Af Amer 126, Est GFR (MDRD) Non-Af 104, BUN/Creatinine Ratio 45.3 H, Glucose 159 H, Calcium 9.0 Current Medications Acetaminophen (Acetaminophen 325 Mg Tablet) 650 mg PO Q6H PRN PRN PRN Reason: Pain Score 1-10/Temp > 100.7 F Last Admin: 04/30/20 15:04 Dose: 650 mg Documented by: Al Hydroxide/Mg Hydroxide (Mag Hydrox/Al Hydrox/Simeth 30 Ml Udc) 30 ml PO Q6H PRN PRN PRN Reason: Gastric Burning Albuterol/Ipratropium (Ipratropium/Albuterol Sulfate 3 Ml Ampul.Neb) 3 ml INHALATION Q4H.RT [facility] Last Admin: 04/30/20 15:10 Dose: 3 ml Documented by: Atorvastatin Calcium (Atorvastatin Calcium 40 Mg Tablet) 40 mg PO QHS [facility] Last Admin: 04/29/20 20:56 Dose: 40 mg Documented by: Azithromycin (Azithromycin 250 Mg Tablet) 500 mg PO Q24 [facility] Stop: 05/01/20 10:01 Last Admin: 04/30/20 08:33 Dose: 500 mg Documented by: Carvedilol (Carvedilol 12.5 Mg Tablet) 12.5 mg PO BID [facility] Last Admin: 04/30/20 08:29 Dose: 12.5 mg Documented by: Digoxin (Digoxin 250 Mcg Tablet) 250 mcg PO DAILY [facility] Last Admin: 04/30/20 08:32 Dose: 250 mcg Documented by: Enoxaparin Sodium (Enoxaparin 40 Mg/0.4 Ml Syringe) 40 mg SC DAILY [facility] Last Admin: 04/30/20 08:33 Dose: 40 mg Documented by: Furosemide (Furosemide 40 Mg Tablet) 40 mg PO DAILY [facility] Last Admin: 04/30/20 08:32 Dose: 40 mg Documented by: Guaifenesin (Guaifenesin 1,200 Mg Tablet) 1,200 mg PO BID [facility] Last Admin: 04/30/20 08:33 Dose: 1,200 mg Documented by: Hydralazine HCl (Hydralazine 20 Mg/Ml Vial) 10 mg IV Q4H PRN PRN PRN Reason: SBP>120 mmhg Last Admin: 04/29/20 00:28 Dose: 10 mg Documented by: Hydrochlorothiazide (Hydrochlorothiazide 25 Mg Tablet) 25 mg PO DAILY [facility] Last Admin: 04/30/20 08:32 Dose: 25 mg Documented by: Levothyroxine Sodium (Levothyroxine 25 Mcg Tablet) 25 mcg PO DAILY@0600 [facility] Last Admin: 04/30/20 05:10 Dose: 25 mcg Documented by: Losartan Potassium (Losartan Potassium 50 Mg Tablet) 50 mg PO DAILY [facility] Last Admin: 04/30/20 08:32 Dose: 50 mg Documented by: Methylprednisolone (Methylprednisolone 40 Mg/Ml Vial) 40 mg IV Q12H [facility] Metoclopramide HCl (Metoclopramide 10 Mg/2 Ml Vial) 5 mg IV Q6H PRN PRN PRN Reason: NAUSEA/VOMTING Last Admin: 04/30/20 14:59 Dose: 5 mg Documented by: Morphine Sulfate (Morphine 2 Mg/Ml Syringe) 2 mg IV Q3H PRN PRN PRN Reason: Pain Score 6-10 Last Admin: 04/28/20 23:14 Dose: 2 mg Documented by: Nitroglycerin (Nitroglycerin (Inpatient Use) 0.4 Mg Tab.Subl) 0.4 mg SL Q5M PRN PRN Reason: CARDIAC/CHEST PAIN Oxycodone HCl (Oxycodone 5 Mg Tablet) 5 mg PO Q4H PRN PRN PRN Reason: Pain Score 4-5 Last Admin: 04/30/20 14:59 Dose: 5 mg Documented by: Senna/Docusate Sodium (Senna/Docusate Sodium 1 Tablet) 2 tablet PO BID PRN PRN PRN Reason: Constipation Sodium Chloride (0.9% Saline Lock 10 Ml Syringe) 10 - 40 ml IV UD PRN PRN Reason: SALINE FLUSH Last Admin: 04/30/20 05:10 Dose: 10 ml Documented by: STROKE Vital Signs/Narrative: Vital Signs Temp Pulse Resp BP Pulse Ox 04/30/20 15:10 85 20 H 04/30/20 15:00 36.6 C 84 18 128/88 H 93 Medical Necessity - Tobacco Use Smoking Status: Current every day smoker Assessment/Plan All Active Problems (Last Updated 11/19/19 @ 08:[address] Antoine Arzola MD) Intractable right knee pain (Acute) Debility (Acute) COPD exacerbation (Acute) Chronic systolic congestive heart failure (Acute) Knee sprain (Resolved) 1. acute COPD exacerbation improving plan: continue BDs wean prednisone 2. VTE prophylaxis: LMWH Inpatient E&M: 50125 Subs Hosp L2
[2020-04-30] MEDS: Atorvastatin Calcium 40 MG Tablet PO (21:26)
--- NOTE | 2020-04-30 23:17 | CPS ---
pt does not want to wear bipap tonight. It's hurting her nose
[2020-05-01] VITALS (9 sets, daily range): BP systolic 112–153; BP diastolic 76–84; PULSE 84–96; RESP 15–18; TEMP 36.8–37.1; O2SAT 92–97
[2020-05-01] MEDS: oxyCODONE 5 MG Tablet PO ×3 (03:31→15:38)
[2020-05-01] MEDS: Acetaminophen 325 MG Tablet 650 MG PO ×3 (03:31→15:38)
[2020-05-01] MEDS: 0.9% Saline Lock 10 ML Syringe IV ×2 (05:07→09:35)
[2020-05-01] MEDS: Levothyroxine 25 MCG TABLET PO (05:08)
[2020-05-01] MEDS: Azithromycin 250 MG Tablet 500 MG PO (09:33)
[2020-05-01] MEDS: Enoxaparin 40 MG/0.4 ML Syringe SC (09:33)
[2020-05-01] MEDS: guaiFENesin 1,200 MG Tablet 1200 MG PO (09:33)
[2020-05-01] MEDS: Digoxin 250 MCG Tablet PO (09:34)
[2020-05-01] MEDS: Losartan Potassium 50 MG Tablet PO (09:34)
[2020-05-01] MEDS: hydroCHLOROthiazide 25 MG Tablet PO (09:34)
[2020-05-01] MEDS: Furosemide 40 MG Tablet PO (09:34)
[2020-05-01] MEDS: Senna/Docusate Sodium 1 Tablet 2 TABLET PO (09:34)
[2020-05-01] MEDS: Carvedilol 12.5 MG Tablet PO (09:34)
[2020-05-01] MEDS: Metoclopramide 10 MG/2 ML Vial 5 MG IV (09:34)
[2020-05-01] MEDS: Ipratropium/Albuterol Sulfate 3 ML AMPUL.NEB INHALATION (11:13)
--- NOTE | 2020-05-01 11:28 | CASEMGMT ---
KAITLIN called Lore at [facility] as patient is ready for discharge. She started the pre-cert, but has not heard back yet. She will let KAITLIN know as soon as she hears from insurance. Plan: [facility] pending [facility]-cert Amie BLACKWELL
--- NOTE | 2020-05-01 13:13 | TREXTCAR_ITS ---
- Diet 04/27/20 21:03 Diet: Cardiac - Heart Healthy Food consistency:: Regular Liquid Consistency:: Regular/Thin - Routine Orders/Code Status O2 Liters per Minute: 3 O2 Frequency: Continuous Keep PO Greater than or Equal to (%): 92 Code Status: DNRCC-A - no intubation - Wound(s) scattered scratches Wound Type: scratches - Therapies Weight Bearing: Full weight bearing Physical Therapy: Eval and Treat Occupational Therapy: Eval and Treat - Allergies/Procedures Done in Hospital Allergies/Adverse Reactions: Allergies hydrocodone bitartrate [From Vicodin] Allergy (Verified 11/17/19 14:29) Hives Penicillins Allergy (Verified 11/17/19 14:29) Anaphylaxis Procedures: None - Type of Care/Length of Stay Estimated LOS: Convalescent Care Less Than 30 days Type of Care Needed: Skilled Rehab Potential: Fair Prognosis: Fair - Additional Orders/Day of Discharge Day of Discharge: 05/01/20 - Dietary and Speech Recommendations Dietitian Recommendations/Changes: continue cardiac diet; consider liberalizing to regular/no added salt and/or add ONS if PO intake does not improve. - Follow Up Care Primary Care Physician: Jaylin Lester,Out of [NON-STAFF] - Please Follow Up With: PCP When: 2-3 weeks Please Follow Up With: Arlette Beckwith NP, FURNITURE ARRANGER-C When: 1-2 months
--- NOTE | 2020-05-01 13:20 | DS.PCM_ITS ---
Discharge Date and Diagnosis - Problem List Patient Problems: Active and Suspected Problems (Last Updated 11/19/19 @ 08:[address] Antoine Arzola MD) Intractable right knee pain (Acute) Debility (Acute) COPD exacerbation (Acute) Date of Admission: 04/27/20 Date of Discharge: 05/01/20 - Primary Discharge Diagnosis Acute Problems: Active Problems (Last Updated 11/19/19 @ 08:[address] Antoine Arzola MD) Intractable right knee pain (Acute) Debility (Acute) COPD exacerbation (Acute) Chronic systolic congestive heart failure (Acute) - Secondary Discharge Diagnosis Chronic Problems: Chronic Problems (Last Updated 11/19/19 @ 08:[address] Antoine Arzola MD) COPD with respiratory distress, acute (Chronic) Smoking greater than 30 pack years (Chronic) COPD (chronic obstructive pulmonary disease) (Chronic) Essential hypertension (Chronic) Elevated LFTs (Chronic) Hepatitis A (Chronic) NSTEMI (non-ST elevated myocardial infarction) (Chronic) RBBB (right bundle branch block) (Chronic) Hyperlipidemia (Chronic) Cardiomyopathy, dilated (Chronic) Nonrheumatic mitral valve regurgitation (Chronic) Biventricular automatic implantable cardioverter defibrillator in situ (Chronic ~01/05/15) RV lead implantation complicated by tamponade -pericardiocentesis done 01/05/15 Atherosclerotic heart disease of [place] coronary artery without angina pectoris (Chronic) Ventricular tachycardia (Chronic) Hospital Course and Treatment Imaging Results: Clinical Impression(s) from Imaging Studies Chest X-Ray 04/27/20 18:44 IMPRESSION: No acute radiographic abnormalities. Chronic lung changes. Electronically Signed: Mikhail Ivan MD at 19:04 EST Tel , Service support , Operations: None Procedures: None Summary of Care Provided: The patient is a 59 year old F [place] with 2 days of shortness of breath. Patient had acute hypoxic and hypercapnic respiratory failure and did temporarily require BiPAP. This is all due to an acute exacerbation of COPD. Patient does have known history of heart failure but that was stable. Patient was on bronchodilators as well as steroids and steadily improved during her hospitalization. Patient still requiring oxygen at 3L/min continuous but overall is improving. Patient will continue with steroids with prednisone already milligrams daily for 5days. Patient continue with her bronchodilators as she was previously prescribed. Patient advised to follow-up with pulmonology in the next 1 to 2months. Patient was debilitated and did obtain [facility]ertification for [facility]. Patient will be discharged there today in stable condition. [] Patient Problems: Active and Suspected Problems (Last Updated 11/19/19 @ 08:[address] Antoine Arzola MD) Intractable right knee pain (Acute) Debility (Acute) COPD exacerbation (Acute) - Physical Exam Vitals/I&O's: Vital Signs Temp Pulse Resp BP Pulse Ox 36.8 C 96 15 129/76 H 93 05/01/20 09:33 05/01/20 11:13 05/01/20 11:13 05/01/20 09:33 05/01/20 11:13 Oxygen Flow Rate (L/min) 3 Oxygen Delivery Method Nasal Cannula Weight: 63.3 kg Body Mass Index (BMI) 27.2 Intake and Output for Last 24 Hours 04/29/20 04/30/20 05/01/20 23:59 23:59 23:59 Intake Total 525 / 885 800 / 800 Output Total 610 / 810 1100 / 1100 Balance -85 / 75 -300 / -300 General: Alert, No apparent distress HEENT: Atraumatic, Normocephalic Oral: Moist Mucosa, No Gingival or Mucosal Lesions/ Ulcerations Neck: No Nodes, Thyroid Normal Size and Texture Lungs: Clear to auscultation, Normal air movement, No rhonchi, No wheeze Cardiovascular: Regular rate, Regular Rhythm, Normal S1, Normal S2, No murmurs Abdomen: Bowel Sounds Present, Soft, Non Tender, Non-Distended, No Hepato- splenomegaly Extremities: No edema, No Calf Tenderness Skin: No rashes, No breakdown Psych/Mental Status: Normal Affect, Appropriate Current Medications Acetaminophen (Acetaminophen 325 Mg Tablet) 650 mg PO Q6H PRN PRN PRN Reason: Pain Score 1-10/Temp > 100.7 F Last Admin: 05/01/20 09:34 Dose: 650 mg Documented by: Al Hydroxide/Mg Hydroxide (Mag Hydrox/Al Hydrox/Simeth 30 Ml Udc) 30 ml PO Q6H PRN PRN PRN Reason: Gastric Burning Albuterol/Ipratropium (Ipratropium/Albuterol Sulfate 3 Ml Ampul.Neb) 3 ml INHALATION Q4H.RT [facility] Last Admin: 05/01/20 11:13 Dose: 3 ml Documented by: Atorvastatin Calcium (Atorvastatin Calcium 40 Mg Tablet) 40 mg PO QHS [facility] Last Admin: 04/30/20 21:26 Dose: 40 mg Documented by: Carvedilol (Carvedilol 12.5 Mg Tablet) 12.5 mg PO BID [facility] Last Admin: 05/01/20 09:34 Dose: 12.5 mg Documented by: Digoxin (Digoxin 250 Mcg Tablet) 250 mcg PO DAILY [facility] Last Admin: 05/01/20 09:34 Dose: 250 mcg Documented by: Enoxaparin Sodium (Enoxaparin 40 Mg/0.4 Ml Syringe) 40 mg SC DAILY [facility] Last Admin: 05/01/20 09:33 Dose: 40 mg Documented by: Furosemide (Furosemide 40 Mg Tablet) 40 mg PO DAILY [facility] Last Admin: 05/01/20 09:34 Dose: 40 mg Documented by: Guaifenesin (Guaifenesin 1,200 Mg Tablet) 1,200 mg PO BID [facility] Last Admin: 05/01/20 09:33 Dose: 1,200 mg Documented by: Hydralazine HCl (Hydralazine 20 Mg/Ml Vial) 10 mg IV Q4H PRN PRN PRN Reason: SBP>120 mmhg Last Admin: 04/29/20 00:28 Dose: 10 mg Documented by: Hydrochlorothiazide (Hydrochlorothiazide 25 Mg Tablet) 25 mg PO DAILY [facility] Last Admin: 05/01/20 09:34 Dose: 25 mg Documented by: Levothyroxine Sodium (Levothyroxine 25 Mcg Tablet) 25 mcg PO DAILY@0600 [facility] Last Admin: 05/01/20 05:08 Dose: 25 mcg Documented by: Losartan Potassium (Losartan Potassium 50 Mg Tablet) 50 mg PO DAILY [facility] Last Admin: 05/01/20 09:34 Dose: 50 mg Documented by: Methylprednisolone (Methylprednisolone 40 Mg/Ml Vial) 40 mg IV Q12H [facility] Last Admin: 05/01/20 05:08 Dose: 40 mg Documented by: Metoclopramide HCl (Metoclopramide 10 Mg/2 Ml Vial) 5 mg IV Q6H PRN PRN PRN Reason: NAUSEA/VOMTING Last Admin: 05/01/20 09:34 Dose: 5 mg Documented by: Nitroglycerin (Nitroglycerin (Inpatient Use) 0.4 Mg Tab.Subl) 0.4 mg SL Q5M PRN PRN Reason: CARDIAC/CHEST PAIN Oxycodone HCl (Oxycodone 5 Mg Tablet) 5 mg PO Q4H PRN PRN PRN Reason: Pain Score 4-5 Last Admin: 05/01/20 09:35 Dose: 5 mg Documented by: Senna/Docusate Sodium (Senna/Docusate Sodium 1 Tablet) 2 tablet PO BID PRN PRN PRN Reason: Constipation Last Admin: 05/01/20 09:34 Dose: 2 tablet Documented by: Sodium Chloride (0.9% Saline Lock 10 Ml Syringe) 10 - 40 ml IV UD PRN PRN Reason: SALINE FLUSH Last Admin: 05/01/20 09:35 Dose: 10 ml Documented by: Discharge Diet: Low fat/ Low Cholesterol Discharge Activity: Return to Normal Activity Home Medications: Medications to take at Discharge Losartan Potassium [Cozaar] 50 mg PO DAILY 04/16/15 albuterol sulfate 90 mcg/actuation aerosol inhaler 2 puff INHALATION Q4H PRN 06/30/17 atorvastatin 40 mg tablet 40 mg PO QHS 06/30/17 Levothyroxine [Synthroid] 25 mcg PO DAILY 12/10/17 Budesonide/Formoterol 160/4.5 [Symbicort 160/4.5 Mcg Inhaler (SP)] 2 puff INHALATION BID 03/01/19 Digoxin [Lanoxin] 250 mcg PO DAILY 03/01/19 Albuterol Aerosols [Ventolin Aerosols] 2.5 mg INHALATION Q4H PRN PRN #1 03/10/19 Furosemide [Lasix] 40 mg PO DAILY #90 tab 03/10/19 Carvedilol [Coreg (Beta Jamie)] 12.5 mg PO BID 11/17/19 Tiotropium [place] [Spiriva Respimat] 2 puff INHALATION DAILY 11/17/19 Guaifenesin [Mucinex] 1,200 mg PO BID tab 05/01/20 Prednisone 4 tab PO DAILY 5 Days tab 05/01/20 Following Prescriptions Were Given to Patient: Prednisone 4 tab PO DAILY 5 Days tab Primary Care Physician: [facility] Doctor,Out of [NON-STAFF] - Please Follow Up With: PCP When: 2-3 weeks Please Follow Up With: Arlette Beckwith OFFICE EXECUTIVE, OFFICE EXECUTIVE-C When: 1-2 months Disposition: [facility]irement facility Minutes spent on discharge:: 32 Patient Condition:: Good Medical Necessity - Tobacco Use Smoking Status: Current every day smoker Meaningful Use Info Meaningful Use Diagnoses (Choose all that apply): None applicable Inpatient E&M: 07190 Disch Hosp
--- NOTE | 2020-05-01 13:25 | CASEMGMT ---
KAITLIN received a call from Lore with [facility] and patient was approved. KAITLIN notified physician. Plan: [facility] BL[facility]
--- NOTE | 2020-05-01 13:41 | CASEMGMT ---
Addendum entered by Amie Coronel 05/01/20 14:34: KATILIN also notified Luda with [facility] via voice mail. Amie BLACKWELL Original Note: SW notified patient that her insurance approved her to go to [facility]. She asked when she is going. SW told her she will be going today. She said, Nothing like last minute. SW told her that her insurance just now approved her and that is all we were waiting on. She asked SW to give her her cell phone so she can call her brother to bring in clothes. KAITLIN did call Lore at [facility] and ask if their transport is running today. She said it was and she will check with him to see how late he will be there today. Lore called back and said he likes to leave by 3p. KAITLIN spoke with patient and her brother probably won't bring her clothes in until at least 330. SW will attempt to get transport arranged through [facility](?) [facility]. KAITLIN called [facility] and spoke with Margaret. KAITLIN gave all necessary information and asked that wheelchair be provided and patient is on 3L O2. KAITLIN requested [facility] and a 5p sampler pickup. Await call to see transport sampler pickup time. Convalescent was completed on . Plan: d/c to [facility] under skilled level of care on a convalescent stay. Amie BLACKWELL
--- NOTE | 2020-05-01 13:51 | PHA.DC.MR ---
Pharmacy Service has performed discharge medication reconciliation for this patient. The patient's discharge medication list was reviewed for discrepancies and discrepancies were resolved. Home Medications Losartan Potassium [Cozaar] 50 mg PO DAILY 04/16/15 albuterol sulfate 90 mcg/actuation aerosol inhaler 2 puff INHALATION Q4H PRN 06/30/17 atorvastatin 40 mg tablet 40 mg PO QHS 06/30/17 Levothyroxine [Synthroid] 25 mcg PO DAILY 12/10/17 Budesonide/Formoterol 160/4.5 [Symbicort 160/4.5 Mcg Inhaler (SP)] 2 puff INHALATION BID 03/01/19 Digoxin [Lanoxin] 250 mcg PO DAILY 03/01/19 Albuterol Aerosols [Ventolin Aerosols] 2.5 mg INHALATION Q4H PRN PRN #1 03/10/19 Furosemide [Lasix] 40 mg PO DAILY #90 tab 03/10/19 Carvedilol [Coreg (Beta Jamie)] 12.5 mg PO BID 11/17/19 Tiotropium [place] [Spiriva Respimat] 2 puff INHALATION DAILY 11/17/19 Guaifenesin [Mucinex] 1,200 mg PO BID tab 05/01/20 Prednisone 4 tab PO DAILY 5 Days tab 05/01/20
--- NOTE | 2020-05-01 13:53 | NURSING ---
called report to nurse Lozano at [facility]
--- NOTE | 2020-05-01 14:41 | CASEMGMT ---
Trip [place] with [facility] [place] [id number]. Still waiting on confirmation of when patient will be picked up. Amie GALVAN MSW
--- NOTE | 2020-05-01 15:10 | CASEMGMT ---
KAITLIN called [facility] and spoke with Carl. KAITLIN asked about the status of patient's transport. He could not find the confirmation number KAITLIN had. He did some more looking and the person scheduled it for tomorrow. He changed this request to today at 5. [place] [id number]. (The number to [facility] is ). Amie BLACKWELL
--- NOTE | 2020-05-01 15:26 | CASEMGMT ---
KAITLIN called Lore at [facility] and left her a voice mail letting her know SW requested a 5p bean picker, but still waiting for confirmation this can be done. hvac design mechanical engineer updated and given the phone number and trip confirmation number. Patient was updated as well Amie GALVAN MSW
--- NOTE | 2020-05-01 16:09 | CON.PCM_ITS ---
Problem List (1) COPD with respiratory distress, acute Status: Chronic (2) Chronic systolic congestive heart failure Status: Chronic (3) Intractable right knee pain Status: Acute (4) Debility Status: Acute (5) Smoking greater than 30 pack years Status: Chronic (6) COPD (chronic obstructive pulmonary disease) Status: Chronic (7) COPD exacerbation Status: Acute (8) Essential hypertension Status: Chronic (9) Elevated LFTs Status: Chronic (10) Nonrheumatic mitral valve regurgitation Status: Chronic (11) Biventricular automatic implantable cardioverter defibrillator in situ Status: Chronic Comment: RV lead implantation complicated by tamponade - pericardiocentesis done 01/05/15 (12) Atherosclerotic heart disease of [place] coronary artery without angina pectoris Status: Chronic Qualifiers: [place] vs. transplanted heart: unspecified whether [place] or transplanted heart Qualified Code(s): I25.10 - Atherosclerotic heart disease of [place] coronary artery without angina pectoris History of Present Illness Date of Consult: 05/01/20 Reason for Consult: Palliative consult for dyspnea, chronic pain Requesting physician: [] Primary care physician: No Primary Care Phys - History of Present Illness The patient is a 59 year old F with a history of chronic respiratory failure who was referred to [facility] for management of chronic pain and dyspnea related to COPD exacerbation. Past medical history includes: systolic heart failure, cardiomyopathy, ICD placement, hypertension, hyperlipidemia and hypothyroidism. See extensive diagnosis list below. She presented on 04/27/2017 to the ER with worsening dyspnea and increased swelling of her extremities for the past few days. Reportedly compliant with all her medications and denies any GI or cardiac symptoms. Presented to ER with a nonrebreather and very little air exchange. She was given multiple breathing treatments along with IV Solu- Medro. Chest x-ray shows hyperinflated inflation but without fluid overload. ABGs show mildly decompensated respiratory acidosis and patient was placed on a BiPAP. Was started on incentive spirometer, Mucinex and continued on Solumedrol. Patient has returned to respiratory baseline and plan is to wean steroids continue bronchodilators and discharge to the [facility] for skilled care. Patient seen today in her room resting before discharge. Patient is pleasant with O2 per NC at 3 L and occasional conversational dyspnea noted. Palliative services explained and how she could benefit from services while at [facility]. Patient reports chronic right bone on bone pain in the hip pain down to the knee and occasionally to the foot. Has been treated by pain management with Dr. Phipps which has reported little effect. Uses as needed tramadol at home for pain. States does not help but I take it. Patient is very discouraged about respiratory status and tired of not feeling good. Reports that, I am ready to go. I wouldn't hurt myself or anything but I am tired of living like this. I have peace with my maker. Voices interest in palliative service and on board with assistance that Palliative would provide to help maintain quality of life. Patient Problems: Chronic Problems (Last Updated 05/01/20 @ 13:[address] Sameer Norwood, DO) COPD with respiratory distress, acute (Chronic) Smoking greater than 30 pack years (Chronic) COPD (chronic obstructive pulmonary disease) (Chronic) Essential hypertension (Chronic) Elevated LFTs (Chronic) Hepatitis A (Chronic) NSTEMI (non-ST elevated myocardial infarction) (Chronic) RBBB (right bundle branch block) (Chronic) Hyperlipidemia (Chronic) Cardiomyopathy, dilated (Chronic) Nonrheumatic mitral valve regurgitation (Chronic) Chronic systolic congestive heart failure (Chronic) Biventricular automatic implantable cardioverter defibrillator in situ (Chronic ~01/05/15) RV lead implantation complicated by tamponade -pericardiocentesis done 01/05/15 Atherosclerotic heart disease of [place] coronary artery without angina pectoris (Chronic) Ventricular tachycardia (Chronic) Surgical History: - - x 2, hysterectomy, AICD/pacemaker placement. Psychiatric History: Anxiety, Depression Home Medications: Ambulatory Orders Medication Instructions Recorded Losartan Potassium [Cozaar] 50 mg PO DAILY 04/16/15 albuterol sulfate 90 mcg/actuation 2 puff INHALATION Q4H PRN 06/30/17 aerosol inhaler atorvastatin 40 mg tablet 40 mg PO QHS 06/30/17 Levothyroxine [Synthroid] 25 mcg PO DAILY 12/10/17 Budesonide/Formoterol 160/4.5 2 puff INHALATION BID 03/01/19 [Symbicort 160/4.5 Mcg Inhaler (SP)] Digoxin [Lanoxin] 250 mcg PO DAILY 03/01/19 Albuterol Aerosols [Ventolin 2.5 mg INHALATION Q4H PRN PRN #1 03/10/19 Aerosols] Furosemide [Lasix] 40 mg PO DAILY #90 tab 03/10/19 Carvedilol [Coreg (Beta Jamie)] 12.5 mg PO BID 11/17/19 Tiotropium Bud [Spiriva 2 puff INHALATION DAILY 11/17/19 Respimat] Guaifenesin [Mucinex] 1,200 mg PO BID tab 05/01/20 Prednisone 4 tab PO DAILY 5 Days tab 05/01/20 Allergies hydrocodone bitartrate [From Vicodin] Allergy (Verified 11/17/19 14:29) Hives Penicillins Allergy (Verified 11/17/19 14:29) Anaphylaxis Maternal Family History: Family History (Last Reviewed 11/17/19 @ 18:20 by FAIZA Sullivan) Father CAD (coronary artery disease) Hypertension Mother CAD (coronary artery disease) Hypertension Diabetes Brother CAD (coronary artery disease) History Items: Diabetes, Heart Disease, Hypertension Paternal Family History: Family History (Last Reviewed 11/17/19 @ 18:20 by FAIZA Sullivan) Father CAD (coronary artery disease) Hypertension Mother CAD (coronary artery disease) Hypertension Diabetes Brother CAD (coronary artery disease) History Items: Heart Disease, Hypertension - Social History Smoking Status: Current every day smoker Code Status: DNRCC-A - no intubation Review of Systems Constitutional: Reports: Weakness, Fatigue. Denies: Chills, Fever HEENT: Denies: Difficulty Hearing, Hard of Hearing Cardiovascular: Denies: Chest Pain, Chest Pressure, Edema Respiratory: Reports: Cough, Shortness of Breath, Shortness of breath at rest. Denies: Sputum production Gastrointestinal: Denies: Abdominal Pain, Constipation, Vomiting Genitourinary: Reports: Incontinence Musculoskeletal: Reports: Joint stiffness, Joint Tenderness - right hip pain/ knee pain Psychiatric: Reports: Anxiety, Depression Physical Exam General: Alert, Oriented x3, Cooperative, Well developed Oral: Moist Mucosa Neck: Supple Lungs: Diminished - all lung mccray, Short of Breath Cardiovascular: Regular rate, Regular Rhythm - Muffled heart tones, ICD, Normal S1, Normal S2 Abdomen: Bowel Sounds Present, Soft, Non Tender Extremities: No clubbing, No cyanosis, No edema Musculoskeletal: No Tenderness to Palpation of Joints or Extremities Psych/Mental Status: Alert and oriented to time, place, person, mood and affect Objective: Vital Signs Temp Pulse Resp BP Pulse Ox 98.7 F 84 18 153/77 H 94 03/16/21 15:30 05/01/20 15:30 05/01/20 15:30 05/01/20 15:30 05/01/20 15:30 Oxygen Flow Rate (L/min) 3 Oxygen Delivery Method Nasal Cannula Weight: 63.3 kg Body Mass Index (BMI) 27.2 Intake and Output for Last 24 Hours 04/29/20 04/30/20 05/01/20 23:59 23:59 23:59 Intake Total 525 / 885 800 / 800 Output Total 610 / 810 1100 / 1100 Balance -85 / 75 -300 / -300 Assessment/Plan All Active Problems (Last Updated 05/01/20 @ 13:[address] Sameer Norwood, DO) Intractable right knee pain (Acute) Debility (Acute) COPD exacerbation (Acute) Knee sprain (Resolved) Lorna Oviedo is a 59-year-old female referred to [facility] for the management of end-stage COPD with exacerbation and chronic right hip /knee pain. She also presents with anxiety and depression. Goal is to stabilize symptoms, maintain and possibly improve quality of life. She is being discharged to [facility] today. Plan is as follows: 1) COPD exacerbation: Patient is weaning off steroids and continuing bronchodilators. Palliative to provide support with dyspnea and monitoring symptoms leading to exacerbations. 2) Chronic pain: Continue injections per Dr. Phipps. Palliative will follow for assessment and management of chronic pain. PT/OT at the [facility]. May consider ordering Oxycodone 5mg PO q 6 hrs PRN for facility use. 3) Anxiety/ Depression: Palliative will assess for s/s of depression/anxiety. [facility] to provide support Thank you for the opportunity to serve your patients! [facility] team [phone] TIME IN: 3:53PM TIME OUT: 4:45PM This note was generated with [employer] dictation software. It may contain incorrect words, spelling, and punctuation that were not noted in checking the note before signing.
== END 2020-05-01 18:37 | disposition skilled nursing facility (03) | DRG 190 ==
LOC: ED 18:02 → PCU 20:08
PROVIDERS: Student in an Organized Health Care Education/Training Program; Admitting Provider Internal Medicine; Emergency Provider Emergency Medicine
DX: J44.1 Chronic obstructive pulmonary disease with (acute) exacerbation (principal); J96.21 Acute and chronic respiratory failure with hypoxia; J96.22 Acute and chronic respiratory failure with hypercapnia; I42.0 Dilated cardiomyopathy; I50.22 Chronic systolic (congestive) heart failure; E87.4 Mixed disorder of acid-base balance; I47.2 Ventricular tachycardia; B15.9 Hepatitis A without hepatic coma; E03.9 Hypothyroidism, unspecified; E78.5 Hyperlipidemia, unspecified; I25.10 Atherosclerotic heart disease of native coronary artery without angina pectoris; I11.0 Hypertensive heart disease with heart failure; M16.11 Unilateral primary osteoarthritis, right hip; F17.210 Nicotine dependence, cigarettes, uncomplicated; M25.561 Pain in right knee; Z95.810 Presence of automatic (implantable) cardiac defibrillator; Z79.899 Other long term (current) drug therapy; I25.2 Old myocardial infarction; Z79.51 Long term (current) use of inhaled steroids; Z91.19 Patient's noncompliance with other medical treatment and regimen; G89.29 Other chronic pain
CPT/HCPCS: 36415; 36600; 71045; 80048; 80162; 82803; 83735; 83880; 84484; 85025; 87426; 87633; 93005; 94002; 94003; 94640; 94667; 97110; 97163; 97166; 97530; 97535; 99251; 99285; 99406; J7030; A4216; G0463; J1940

== ENCOUNTER → 2020-07-11 13:52 | Outpatient (CLI) | payer MEDICARE, MEDICAID, SELFPAY ==
[2020-06-11 11:11] VITALS: BMI 29.9
--- NOTE | 2020-07-11 13:59 | CT_ITS ---
STUDY: LOW DOSE CT LUNG CANCER SCREENING REASON FOR EXAM: Female, 59 years old. smoker. 30 pack years RADIATION DOSAGE (If Supplied By Facility): CTDIvol = ( 4.02 ) mGy, DLP = ( 134.41 ) mGycm TECHNIQUE: No contrast was administered. Low dose technique was utilized (average mAS-38 and kVp 120). 1.25 mm axial source images with a slice interval of 1.25-mm were reconstructed in lung windows. 2.5 mm axial source images with a slice interval of 2.5-mm were reconstructed in lung windows. 5.0 mm axial source images with a slice interval of 5.0-mm were reconstructed in soft tissue windows. Nodule measured using lung windows on PACS and/or independent workstation with automated measurement of minimum and maximum diameter. Nodule measurement reported as average diameter rounded to the nearest whole number. Growth is defined as an increase ins size of greater than 1.5 mm. COMPARISON: Comparison is made with prior examination 10/05/2014. NODULES: No suspicious nodules are seen. Emphysema: Hyperinflation. Emphysematous changes in both lungs. Stable mild degree of increased linear markings at the lung bases suggestive of scarring. Endobronchial lesion: Aorta: Atherosclerotic plaque formation. Coronary arteries: Coronary artery calcification. Heart: A left-sided dual-chamber pacemaker is seen. Mediastinal nodes: Small menisci normal lymph nodes. Other chest and abdominal findings: Degenerative changes of the thoracic spine. CT/Low Dose CT Lung Screening IMPRESSION: Lung-RADS category 2 - Continue annual screening with LDCT in 12 months. IMPORTANT NOTES FOR USE: ACR Lung-RADS Version 1.1 Assessment Categories Release Date: 2018 Category: Coded 0-4 bases on nodule(s) with highest degree of suspicion. Negative screen is defined as categories 1 and 2; a positive screen is defined as categories 3 and 4. Category 3 and 4A nodules that are unchanged on interval CT should be coded as category 2, and individuals returned to screening in 12 months. Category 4X: Category 3 or 4 nodules with additional imaging findings that increase the suspicion of lung cancer, such as spiculation, GGN that doubles in size in 1 year, enlarged lymph notes, etc. Category Modifiers: S (significant finding unrelated to lung cancer) Electronically Signed: Khurram Recio MD at 14:43 EDT , Service support ,
== END ==
PROVIDERS: PCP Family Medicine; Referring Provider Nurse Practitioner Acute Care; Visit Provider Nurse Practitioner Acute Care
DX: F17.210 Nicotine dependence, cigarettes, uncomplicated (principal)
CPT/HCPCS: 71271

== ENCOUNTER → 2020-07-17 11:08 | Outpatient (CLI) | payer MEDICARE, MEDICAID, SELFPAY ==
[2020-06-11 11:11] VITALS: BMI 29.9
[2020-07-17 12:03] VITALS: PULSE 103; PULSE 107; PULSE 109; PULSE 112; PULSE 113; PULSE 114; PULSE 115; O2SAT 85; O2SAT 91; O2SAT 93; O2SAT 94; O2SAT 95
--- NOTE | 2020-07-17 12:07 | CPS ---
PATIENT ARRIVED BY WHEELCHAIR ON 3LPM OXYGEN SUPPLIED HER CURRENT RESIDENCE, [place]. PLACED ON RA PRIOR TO TEST. UPON BEGINNING WALK TEST, SPO2 RAPIDLY FELL TO 85%, PATIENT RESTED AND PLACED ON 2LPM FOR WHICH SHE REMAINED FOR DURATION OF TESTING. SHE TOOK EXTENDED REST BREAKS EVERY MINUTE D/T INCREASED WOB AND HIP PAIN, SHE PUSHED HER W/C DURING TESTING FOR STABILITY. STATES SHE IS MOVING IN WITH HER SON AND WILL NEED OXYGEN S/U PRIOR TO THAT. I TOLD HER [facility] MGMT WILL COORDINATE, SHE ASKED THAT I MAKE A NOTE ANYWAY
--- NOTE | 2020-07-18 08:44 | PCM.PSN.6M ---
PSN 6 Minute Walk Test 6 Minute Walk Test 6 Minute Walk Test: 6 Minute Walk Test PSN:6-Minute Walk Test Start: 07/17/20 12:02 Freq: Status: Active Protocol: [id number].6MINW Document 07/17/20 12:03 [facility] (Rec: 07/17/20 12:13 [facility] [id number]) 6 Minute Walk Test Date Performed 07/17/20 Time Performed 11:15 Height 5 ft Weight: 155 lb Weight in Pounds 155.[address]: Arlette Beckwith BINDER TECHNICIAN Assistive device used: Walker Pre-test Oxygen Delivery Method Room Air Pulse Ox (%) 91 Pulse Rate (60-100 beats/min) 103 H Dyspnea Dolores Scale (0-10) 3 Reported Symptoms Increased Work of Breathing 1st minute Oxygen Delivery Method Room Air Pulse Ox (%) 85 Pulse Rate (60-100 beats/min) 109 H Dyspnea Dolores Scale (0-10) 5 Number of Rests Taken 1 Reported Symptoms Cyanotic,Increased Work of Breathing 2nd minute Oxygen Flow Rate (L/min) (L/min) 2 Oxygen Delivery Method Nasal Cannula Pulse Ox (%) 91 Pulse Rate (60-100 beats/min) 112 H Dyspnea Dolores Scale (0-10) 5 Number of Rests Taken 1 Reported Symptoms Increased Work of Breathing 3rd minute Oxygen Flow Rate (L/min) (L/min) 2 Oxygen Delivery Method Nasal Cannula Pulse Ox (%) 94 Pulse Rate (60-100 beats/min) 113 H Dyspnea Dolores Scale (0-10) 5 Number of Rests Taken 1 Reported Symptoms Increased Work of Breathing 4th minute Oxygen Flow Rate (L/min) (L/min) 2 Oxygen Delivery Method Nasal Cannula Pulse Ox (%) 94 Pulse Rate (60-100 beats/min) 115 H Dyspnea Dolores Scale (0-10) 6 Number of Rests Taken 1 Reported Symptoms Increased Work of Breathing 5th minute Oxygen Flow Rate (L/min) (L/min) 2 Oxygen Delivery Method Nasal Cannula Pulse Ox (%) 93 Pulse Rate (60-100 beats/min) 112 H Dyspnea Dolores Scale (0-10) 6 Number of Rests Taken 1 Reported Symptoms Increased Work of Breathing 6th minute Oxygen Flow Rate (L/min) (L/min) 2 Oxygen Delivery Method Nasal Cannula Pulse Ox (%) 94 Pulse Rate (60-100 beats/min) 114 H Dyspnea Dolores Scale (0-10) 6 Number of Rests Taken 1 Reported Symptoms Increased Work of Breathing Post-test Oxygen Flow Rate (L/min) (L/min) 2 Oxygen Delivery Method Nasal Cannula Pulse Ox (%) 95 Pulse Rate (60-100 beats/min) 107 H Dyspnea Dolores Scale (0-10) 3 Reported Symptoms Increased Work of Breathing Full Laps Walked 2 Partial Lap, Number of Tiles Walked 15 Total Distance Walked (ft) 133 07/17/20 12:07 Cardiopulmonary Services by April Rushing PATIENT ARRIVED BY WHEELCHAIR ON 3LPM OXYGEN SUPPLIED HER CURRENT RESIDENCE, [facility] [place]. PLACED ON RA PRIOR TO TEST. UPON BEGINNING WALK TEST, SPO2 RAPIDLY FELL TO 85%, PATIENT RESTED AND PLACED ON 2LPM FOR WHICH SHE REMAINED FOR DURATION OF TESTING. SHE TOOK EXTENDED REST BREAKS EVERY MINUTE D/T INCREASED WOB AND HIP PAIN, SHE PUSHED HER W/C DURING TESTING FOR STABILITY. STATES SHE IS MOVING IN WITH HER SON AND WILL NEED OXYGEN S/U PRIOR TO THAT. I TOLD HER [facility] CASE MGMT WILL COORDINATE, SHE ASKED THAT I MAKE A NOTE ANYWAY Initialized on 07/17/20 12:07 - END OF NOTE Interpretation Interpretation: The patient ambulated 133 feet over the course of 6 minutes beginning on room air with the use of a walker. Pretesting oxygen saturation was noted to be 91% on room air. With ambulation, the bailey oxygen saturation was 85%. 2 L/min of supplemental oxygen was applied, and the patient was able to complete the remainder of the test while maintaining appropriate oxygen saturations. Recommendations Recommendations: 2 L/min of supplemental oxygen should be utilized with exertion.
== END ==
PROVIDERS: PCP Family Medicine; Referring Provider Nurse Practitioner Acute Care; Visit Provider Nurse Practitioner Acute Care
DX: J44.9 Chronic obstructive pulmonary disease, unspecified (principal)
CPT/HCPCS: 94618

== ENCOUNTER → 2020-07-23 12:48 | Outpatient (CLI) | payer MEDICARE, MEDICAID, SELFPAY ==
[2020-06-11 11:11] VITALS: BMI 29.9
--- NOTE | 2020-07-23 14:35 | SPIR ---
Spirometry PFT Testing Spirometry PFT Testing: COMPLETE PULMONARY FUNCTION TEST INTERPRETATION Brief HPI: Patient is a 60 year old female, currently under the care of Arlette Beckwith, who presents to [facility] for complete pulmonary function tests secondary to diagnosis of COPD. Respiratory therapist reports good effort and reproducible results. Interpretation: Forced expiration spirometry shows a very severe large airways obstructive ventilatory defect with an FEV1 of 27% predicted. There is no significant bronchodilator response by strict ATS criteria. Spirograms are of good quality and plateau slowly, indicating slowly emptying areas of the lungs. The respiratory flow volume loop shows decreased expiratory flow rates at all lung volumes consistent with airway obstruction. No previous pulmonary function tests were available for review. Impression: Irreversible very severe large airways obstructive ventilatory defect. Concomitant restrictive ventilatory defect cannot be excluded without lung volumes.
== END ==
PROVIDERS: PCP Family Medicine; Referring Provider Nurse Practitioner Acute Care; Visit Provider Nurse Practitioner Acute Care
DX: J44.9 Chronic obstructive pulmonary disease, unspecified (principal)
CPT/HCPCS: 94060; 94726; 94729

== ENCOUNTER 2020-11-12 12:08 | Emergency (ER) | payer MEDICARE, MEDICAID, SELFPAY ==
[2020-11-12 12:10] VITALS: BP 181/114; PULSE 108; RESP 17; TEMP 37.2; O2SAT 93; BMI 34.4
[2020-11-12 12:17] VITALS: BP 181/114; PULSE 81; RESP 20; TEMP 37.2; O2SAT 97
[2020-11-12 12:18] VITALS: BP 182/79
--- NOTE | 2020-11-12 13:07 | EKG12_ITS ---
Test Reason : AMS Blood Pressure : / mmHG Vent. Rate : 091 BPM Atrial Rate : 091 BPM P-R Int : 104 ms QRS Dur : 144 ms QT Int : 390 ms P-R-T Axes : 070 217 073 degrees QTc Int : 479 ms Atrial-sensed ventricular-paced rhythm Biventricular pacemaker detected Abnormal ECG Confirmed by SONA SPENCER, JACE ([id number]), senior editor CARLOS CASTELLON ([id number]) on 11/14/2020 11:24:33 AM Referred By: ISHAAN/OSVALDO Confirmed By:JACE MAGALLANES MD
[2020-11-12 14:00] LABS: Red Blood Cells-Urine 0 SEEN /hpf (0-5); White Blood Cells 0 SEEN /hpf (0-5)
[2020-11-12 14:02] LABS: Color, Urine Yellow (Yellow); Glucose, Dipstick Normal (Normal); Ketone-Dipstick 50 mg/dl (Negative); Leukocyte Esterase-Dipstick Negative /ul (Negative); Nitrite-Dipstick Negative (Negative); Occult Blood-Urine 10 /ul (Negative); Protein-Dipstick Negative (Negative); Specific Gravity, Urine 1.015 (1.002-1.030); Urine Bilirubin Dipstick Negative (Negative); Urine Clarity Clear (Clear); Urine Urobilinogen Normal (Normal)
[2020-11-12 14:05] LABS: Absolute Lymphocyte Count 1.99 X10^3/uL (0.83-4.51); Basophil# 0.02 X10^3/uL; Basophil% 0.2 % (0-1); Eosinophil# 0.02 X10^3/uL; Eosinophils% 0.2 % (0-5); Hematocrit 43.7 % (37-47); Hemoglobin 13.4 g/dL (12.0-15.0); Lymphocyte # 1.99 X10^3/ul (0.83-4.51); Lymphocyte % 20.9 % (19-41); Mean Corp Hgb Conc 30.7 g/dL (32-36); Mean Corpuscular Hgb 26.9 pg (27.0-32.0); Mean Corpuscular Volume 87.8 fL (81-99); Mean Platelet Vol. 9.3 fl (6.2-12.0); Monocyte# 0.48 X10^3/uL; NRBC Flagged by Analyzer 0 % (0-5); Neutrophil # 6.98 X10^3/uL (2.7-7.7); Neutrophil % 73.4 % (47-70); Platelet Count 305 K/mm3 (150-450); RBC Distribution Width CV 11.9 % (11.6-14.6); RBC Distribution Width SD 38.5 fl (35.1-43.9); Red Blood Count 4.98 M/mm3 (4.2-5.4); White Blood Count 9.5 K/mm3 (4.4-11.0)
[2020-11-12 14:11] LABS: Bacteria RARE /hpf (None Seen); Hyaline Cast 0-5 SEEN /lpf (0-5); Mucous, Urine RARE /hpf (<or=2+); Squamous Epithelial Cells - UA 0-5 SEEN /hpf (5-10)
--- NOTE | 2020-11-12 14:15 | RAD_ITS ---
STUDY: X-RAY CHEST REASON FOR EXAM: Female, 60 years old. Dyspnea TECHNIQUE: Single AP portable view of the chest. COMPARISON: Comparison is made with prior study dated 04/27/2020. FINDINGS: EKG lead which are seen. Minimal increased markings are seen at the lung bases suggestive of a bibasilar atelectasis. There is no demonstrated pleural abnormality. There is borderline cardiomegaly. A left-sided dual-chamber pacemaker is seen. Normal mediastinum and lisa. Normal visualized pulmonary arteries. There is atherosclerotic calcification of the aortic arch with tortuosity. There are degenerative changes of the visualized thoracic spine. There is degenerative osteoarthritis of the bilateral shoulders. There is no demonstrated abnormality of the visualized soft tissue structures of the upper abdomen. RAD/Chest 1 View (Portable) IMPRESSION: Mild degree of increased markings at the lung bases suggestive of mild bibasilar atelectasis. Electronically Signed: Khurram Recio MD at 14:50 EDT , Service support ,
[2020-11-12 14:20] LABS: ALB/GLOB Ratio 0.9 RATIO (0.9-2.4); AST(SGOT) 33 U/L (15-37); Alanine Aminotransfer ALT/SGPT 23 U/L (13-56); Albumin, Serum 3.6 g/dL (3.2-5.0); Alkaline Phosphatase 108 U/L (45-117); Anion Gap 6 (5-15); BUN 10 mg/dL (7-18); BUN/Creat Ratio 20.1 RATIO (10-20); Calcium,Total 9.6 mg/dL (8.5-10.1); Chloride 89 mmol/L (98-107); EST Glomerular Filtration Rate 134 mL/min (>60); Est Glom Filt Rate - Afr Amer 162 mL/min (>60); Globulin 4.2 g/dL (2.2-4.2); Glucose 161 mg/dL (74-106); Potassium 3.2 mmol/L (3.5-5.1); Protein, Total 7.8 g/dL (6.4-8.2); Sodium Level 138 mmol/L (136-145); Troponin-I HS 40 pg/mL (3.0-54.0)
[2020-11-12 14:25] LABS: Lactic Acid 0.9 mmol/L (0.4-1.9)
--- NOTE | 2020-11-12 14:48 | CT_ITS ---
STUDY: CT BRAIN WITHOUT CONTRAST REASON FOR EXAM: Female, 60 years old. Altered mental status RADIATION DOSAGE (If Supplied By Facility): CTDIvol = ( 44.99 ) mGy, DLP = ( 796.11 ) mGycm TECHNIQUE: Transaxial CT imaging of the brain was performed without administration of intravenous contrast material. Individualized dose optimization techniques were used for this CT. COMPARISON: No relevant priors. FINDINGS: Normal soft tissue structures. Normal calvarium. There is mild cerebral atrophy with widening of the extra-axial spaces and ventricular dilatation. There are areas of decreased attenuation within the white matter tracts of the supratentorial brain, consistent with microvascular disease changes. Normal basal ganglia and thalami. Normal brainstem. Normal cerebellum. There is no intracranial hemorrhage. There are no findings of an acute ischemic infarction. Atherosclerotic calcification of the cavernous portions of the internal carotid arteries and vertebral arteries. Normal visualized paranasal sinuses. CT/Brain/Head without Contrast IMPRESSION: Chronic involutional changes of the brain. Electronically Signed: Khurram Recio MD at 15:03 EDT , Service support ,
[2020-11-12 15:38] VITALS: BP 158/58; PULSE 104; RESP 16; TEMP 36.9; O2SAT 94
[2020-11-12] MEDS: 0.9% Normal Saline 1,000 ML 1000 ML IV (15:51)
--- NOTE | 2020-11-12 16:41 | EDS_ITS ---
HPI History of Present Illness Chief Complaint: Mental Status Change Informant: patient, EMS, PCP and SNF Onset/Context/Timing Onset: Days (2-3) Context: Gradual Onset Timing: Intermittent Quality: Unresponsive Location: Generalized Worsened by: Nothing Relieved by: Nothing Narrative Narrative: Patient presents with altered mental status over the past 2 to 3 days. EMS reports they were called for unresponsive patient. Upon their arrival, patient was alert and oriented x3. Staff at the [facility] reports the patient was having hallucinations over the weekend. Staff also reports that the patient was having some dysuria over the past week. Currently, patient denies any dysuria. Patient states she was recently started on OxyContin 3 to 4 weeks ago. [facility] Medical History (Updated 11/12/20 @ 16:[address] Sameer Carbone, ) Anxiety Atherosclerotic heart disease of [place] coronary artery without angina pectoris Biventricular automatic implantable cardioverter defibrillator in situ (~01/05/15) Cardiac tamponade Cardiomyopathy, dilated Chronic systolic congestive heart failure COPD (chronic obstructive pulmonary disease) Depression Hyperlipidemia Nonrheumatic mitral valve regurgitation Obesity (BMI 30.0-34.9) RBBB (right bundle branch block) Ventricular tachycardia Home Medications losartan 50 mg PO DAILY 04/16/15 [History Last Taken 11/11/20] atorvastatin 40 mg tablet 40 mg PO QHS 06/30/17 [History Last Taken 11/11/20] levothyroxine 25 mcg PO DAILY 12/10/17 [History Last Taken 11/12/20] digoxin 250 mcg PO DAILY 03/01/19 [History Last Taken 11/12/20] duloxetine 30 mg capsule,delayed release 30 mg PO QHS 06/11/20 [History Last Taken 11/11/20] furosemide 40 mg tablet 40 mg PO DAILY tab 08/30/20 [History Last Taken 11/12/20] potassium chloride 20 mEq tablet,extended release 20 meq PO DAILY 08/30/20 [History Last Taken 11/12/20] carvedilol 25 mg tablet 25 mg PO BID #60 tab 09/11/20 [Rx Last Taken 11/12/20] acetaminophen 500 mg capsule 1,000 mg PO TID 10/05/20 [History Last Taken 11/12/20] famotidine 20 mg tablet 20 mg PO BID PRN 10/05/20 [History Last Taken 10/31/20] fluticasone 250 mcg-salmeterol 50 mcg/dose blistr powdr for inhalation 1 inh INHALATION BID 10/05/20 [History Last Taken 11/12/20] omeprazole 20 mg capsule,delayed release 20 mg PO DAILY 10/05/20 [History Last Taken 11/12/20] oxycodone 10 mg tablet 10 mg PO Q4H PRN 10/05/20 [History Last Taken 11/11/20] duloxetine 60 mg PO DAILY 11/12/20 [History Last Taken 11/12/20] guaifenesin [Mucinex] 1,200 mg PO BID 11/12/20 [History Last Taken 11/12/20] oxycodone 5 mg PO .Q5H PRN 11/12/20 [History Last Taken 11/07/20] sennosides-docusate sodium [DOT-COLACE] 2 tab PO BID 11/12/20 [History Last Taken 11/12/20] sertraline 25 mg PO DAILY 11/12/20 [History Last Taken 11/12/20] tiotropium bromide [Spiriva Respimat] 2 inh INHALATION DAILY 11/12/20 [History Last Taken 11/12/20] Allergy/AdvReac Type Severity Reaction Status Date / Time hydrocodone bitartrate Allergy Hives Verified 11/12/20 12:09 [From Vicodin] Penicillins Allergy Anaphylaxis Verified 11/12/20 12:09 Family History Father CAD (coronary artery disease) Hypertension Mother CAD (coronary artery disease) Hypertension Diabetes Brother CAD (coronary artery disease) Surgical History History of tubal ligation Status post pericardiocentesis Social History Smoking Status: Former smoker quit date: 02/16/14 pack-years: 60 alcohol intake: never ROS ROS ED Constitutional Constitutional ED: Denies chills or fever(s) Eyes Eyes: Denies blurry vision or change in vision ENT ENT ED: Denies rhinorrhea or sore throat Cardiovascular Cardiovascular: Denies chest pain or palpitations Respiratory/Chest Respiratory/Chest: Reports dyspnea; Denies cough Gastrointestinal Gastrointestinal: Denies nausea or vomiting Genitourinary Genitourinary ED: Denies dysuria or hematuria Musculoskeletal Musculoskeletal: Denies back pain or neck pain Integumentary Denies abscess or rash Neurologic Neurologic: Denies headache(s) or weakness Allergic/Immunologic Allergic/Immunologic ED: Denies mouth swelling or urticaria EXAM Physical Exam Const Vital Signs: 11/12/20 12:10 11/12/20 12:17 11/12/20 12:18 Temperature 99.0 F 99.0 F Temperature Source Oral Oral Pulse Rate 108 H 81 Respiratory Rate 17 20 H Blood Pressure 181/114 H 181/114 H 182/79 H Blood Pressure Mean 136 136 113 Pulse Ox 93 97 Oxygen Delivery Method Nasal Cannula Nasal Cannula Oxygen Flow Rate (L/min) 3 3 11/12/20 15:38 Temperature 98.4 F Temperature Source Oral Pulse Rate 104 H Respiratory Rate 16 Blood Pressure 158/58 H Blood Pressure Mean 91 Pulse Ox 94 Oxygen Delivery Method Nasal Cannula Oxygen Flow Rate (L/min) 3 Positive well nourished, well developed and obese General Appearance ED: well developed Nutritional Appearance: obese HEENT Reports dry mucous membranes Mouth ED: Yes dry mucous membranes Mouth: dry mucous membranes Eyes PERRL and EOMs intact bilaterally Neck supple and no JVD Resp normal respiratory effort and clear to auscultation bilaterally Cardio regular rate, regular rhythm and no murmurs GI normal to inspection, nondistended, normoactive bowel sounds and non-tender Palpation: soft Extremity normal to inspection General Extremety ED: Negative for edema or tenderness General Extremity: Negative for edema Neuro oriented x3, CN's II-XII intact bilaterally and no sensory deficits noted Sensorium / Orientation: alert Motor Exam: strength 5/5 throughout Psych mental status grossly normal Skin no rashes or lesions noted MDM MDM MDM Narrative Medical decision making narrative: Patient was given IV fluids here. CBC was normal. Comprehensive metabolic profile showed a mild hypokalemia of 3.2. Urinalysis does not show any evidence of urinary tract infection. Lactate was normal. Portable 1 view chest x-ray was obtained. On my interpretation, lung mccray are clear. There is normal cardiac silhouette. Bony thorax is normal. There is no acute process noted. Radiologist also interpreted the x-ray and agrees. CT scan of the brain was obtained. There are chronic changes. There is no acute intracranial abnormality. This was interpreted by the radiologist and reviewed by myself. Case was discussed with the nurse practitioner from Dr. Jade's office. She stated that she was called this morning because the patient was unresponsive and had an elevated blood pressure of over 200 systolic. She was advised of the patient's results. She is agreeable to having the patient discharged back to her extended care facility. Patient was given a dose of potassium here prior to discharge. Patient is agreeable with the plan. All questions were answered. Lab Data Labs: Laboratory Results - last 24 hr 11/12/20 11/12/20 11/12/20 11:52 11:52 12:45 WBC 9.5 RBC 4.98 Hgb 13.4 Hct 43.7 MCV 87.8 MCH 26.9 L MCHC 30.7 L RDW Std Deviation 38.5 RDW Coeff of Siobhan 11.9 Plt Count 305 MPV 9.3 Immature Gran % (Auto) 0.300 Neut % (Auto) 73.4 H Lymph % (Auto) 20.9 [place] % (Auto) 5.0 Eos % (Auto) 0.2 Baso % (Auto) 0.2 Absolute Neuts (auto) 7.0 Absolute Lymphs (auto) 1.99 Nucleated RBC % 0 Sodium 138 Potassium 3.2 L Chloride 89 L Carbon Dioxide 43.0 H Anion Gap 6 BUN 10 Creatinine 0.50 L Estim Creat Clear Calc 83.80 Est GFR (MDRD) Af Amer 162 Est GFR (MDRD) Non-Af 134 BUN/Creatinine Ratio 20.1 H Glucose 161 H Lactic Acid Calcium 9.6 Total Bilirubin 0.50 AST 33 ALT 23 Alkaline Phosphatase 108 Troponin I High Sens 40 Total Protein 7.8 Albumin 3.6 Globulin 4.2 Albumin/Globulin Ratio 0.9 Urine Color Yellow Urine Clarity Clear Urine pH 8.0 Ur Specific [place] 1.015 Urine Protein Negative Urine Glucose (UA) Normal Urine Ketones 50 H Urine Occult Blood 10 H Urine Nitrite Negative Urine Bilirubin Negative Urine Urobilinogen Normal Ur Leukocyte Esterase Negative Urine RBC 0 SEEN Urine WBC 0 SEEN Ur Squamous Epith Cells 0-5 SEEN Urine Bacteria RARE Hyaline Casts 0-5 SEEN Urine Mucus RARE 11/12/20 13:56 WBC RBC Hgb Hct MCV MCH MCHC RDW Std Deviation RDW Coeff of Si[place] Plt Count MPV Immature Gran % (Auto) Neut % (Auto) Lymph % (Auto) [place] % (Auto) Eos % (Auto) Baso % (Auto) Absolute Neuts (auto) Absolute Lymphs (auto) Nucleated RBC % Sodium Potassium Chloride Carbon Dioxide Anion Gap BUN Creatinine Estim Creat Clear Calc Est GFR (MDRD) Af Amer Est GFR (MDRD) Non-Af BUN/Creatinine Ratio Glucose Lactic Acid 0.9 Calcium Total Bilirubin AST ALT Alkaline Phosphatase Troponin I High Sens Total Protein Albumin Globulin Albumin/Globulin Ratio Urine Color Urine Clarity Urine pH Ur Specific [place] Urine Protein Urine Glucose (UA) Urine Ketones Urine Occult Blood Urine Nitrite Urine Bilirubin Urine Urobilinogen Ur Leukocyte Esterase Urine RBC Urine WBC Ur Squamous Epith Cells Urine Bacteria Hyaline Casts Urine Mucus Radiography Chest X-Ray - ED: 1 View, Read by ED Physician, Read by Radiologist and Normal Diagnostic Testing: Radiology Impression Chest X-Ray 11/12/20 14:15 IMPRESSION: Mild degree of increased markings at the lung bases suggestive of mild bibasilar atelectasis. Electronically Signed: Khurram Recio MD at 14:50 EDT , Service support , Brain CT 11/12/20 14:48 IMPRESSION: Chronic involutional changes of the brain. Electronically Signed: Khurram Recio MD at 15:03 EDT , Service support , EKG Initial EKG: Attestation: I personally reviewed and interpreted this EKG as follows: Interpretation: No Acute Injury Pattern, Paced (91) and LBBB Prior EKG tracings: available for review Prior: Unchanged (04/27/2020) Discharge Plan Triage Chief Complaint: Mental Status Change ED Provider: Sameer Carbone Dx/Rx/DC Orders Clinical Impression: Altered mental status, unspecified Instructions: ED ALOC Prescriptions: No Action atorvastatin 40 mg tablet 40 mg PO QHS RF: 0 duloxetine [Cymbalta] 30 mg capsule,delayed release(DR/EC) 30 mg PO QHS RF: 0 furosemide 40 mg tablet 40 mg PO DAILY RF: 0 potassium chloride 20 mEq tablet extended release 20 meq PO DAILY RF: 0 acetaminophen 500 mg capsule 1,000 mg PO TID RF: 0 famotidine 20 mg tablet 20 mg PO BID PRN (Reason: Indigestion) RF: 0 fluticasone propion-salmeterol 250-50 mcg/dose blister with device 1 inh inhalation BID RF: 0 omeprazole 20 mg capsule,delayed release(DR/EC) 20 mg PO DAILY RF: 0 oxycodone 10 mg tablet 10 mg PO Q4H PRN (Reason: Pain) RF: 0 losartan 50 MG tablet 50 mg PO DAILY RF: 0 levothyroxine 25 MCG tablet 25 mcg PO DAILY RF: 0 digoxin 250 MCG tablet 250 mcg PO DAILY RF: 0 sennosides-docusate sodium [DOT-COLACE] 8.6-50 mg Tablet 2 tab PO BID RF: 0 sertraline 25 mg Tablet 25 mg PO DAILY RF: 0 duloxetine 60 mg Capsule, Delayed Rel Sprinkle 60 mg PO DAILY RF: 0 oxycodone 5 mg Tablet 5 mg PO .Q5H PRN (Reason: Pain) RF: 0 Mucinex 1,200 mg Tablet Extended Release 12hr 1,200 mg PO BID RF: 0 Spiriva Respimat 2.5 mcg/actuation mist 2 inh INHALATION DAILY RF: 0 carvedilol 25 mg tablet 25 mg PO BID Qty: 60 RF: 12 Primary Care Provider: Sarthak Jade Referrals: Sarthak Jade MD [Primary Care Provider] - 3-5 Days Disposition Disposition: Halfway Facility Discharge Location: [facility]
[2020-11-12 17:00] VITALS: BP 172/66; PULSE 100; RESP 16; TEMP 37.1
--- NOTE | 2020-11-12 17:00 | NURSING ---
CALLED [facility], ETA IS 90 MIN
== END 2020-11-12 18:37 | disposition skilled nursing facility (03) ==
PROVIDERS: Emergency Provider Emergency Medicine; PCP Family Medicine
DX: R41.82 Altered mental status, unspecified (principal); E66.9 Obesity, unspecified; I25.10 Atherosclerotic heart disease of native coronary artery without angina pectoris; E78.5 Hyperlipidemia, unspecified; F32.9 Major depressive disorder, single episode, unspecified; J44.9 Chronic obstructive pulmonary disease, unspecified; I50.22 Chronic systolic (congestive) heart failure; Z79.51 Long term (current) use of inhaled steroids; Z79.899 Other long term (current) drug therapy; Z87.891 Personal history of nicotine dependence
CPT/HCPCS: 70450; 71045; 80053; 81001; 83605; 84484; 85025; 93005; 99285; J7030; A4216